=== PATIENT | male | born 1990 | race Caucasian/White ===

== ENCOUNTER 2018-02-03 10:00 | Outpatient (RCR) | payer MEDICARE, MEDICAID, SELFPAY ==
--- NOTE | 2018-02-03 13:14 | COCO.CNN ---
Primary Reason for Visit Financial Referral to Care Coordination Referral to Care Coordination: No Referral to Services: Yes Where and Who: [facility] - Referral From Referral From: Self Care Plan - Plan of Care Assessment/Background: I saw client today to complete paperwork for [facility] assistance with deposit and utility costs. Client is moving into affordable housing after a 2.5 year wait. Co-worker Gilda to deliver to [facility] at housing meeting today.
--- NOTE | 2018-02-03 13:21 | PDOC.CNN_ITS ---
Primary Reason for Visit Financial Referral to Care Coordination Referral to Care Coordination: No Referral to Services: Yes Where and Who: [facility] - Referral From Referral From: Self Care Plan - Plan of Care Assessment/Background: I saw client today to complete paperwork for [facility] assistance with deposit and utility costs. Client is moving into affordable housing after a 2.5 year wait. Co-worker Gilda to deliver to [facility] at housing meeting today.
== END 2018-03-05 10:00 ==
LOC: COCO 10:00
PROVIDERS: PCP Family Medicine; Visit Provider Family Medicine
DX: R69 Illness, unspecified (principal)

== ENCOUNTER 2018-03-06 20:28 | Inpatient (IN) | payer MEDICARE, MEDICAID, SELFPAY ==
[2018-03-06] VITALS (18 sets, daily range): BP systolic 85–136; BP diastolic 36–95; PULSE 78–122; RESP 15–36; TEMP 37.1–38; O2SAT 97–100
[2018-03-06 20:52] LABS: Bilirubin Negative (Negative); Blood Negative (Negative); Clarity Clear; Glucose Negative (Negative); Ketones Negative (Negative); Leukocyte Esterase Moderate (Negative); Nitrite Negative (Negative); Specific Gravity <= 1.005 (1.005-1.025); Urobilinogen 0.2 EU/dL (Up TO 0.2)
[2018-03-06] MEDS: HYDROcodone 5/Acetaminophen 325 TAB PO (21:11)
[2018-03-06] MEDS: Acetaminophen 325 MG TAB PO (21:11)
[2018-03-06 21:14] LABS: Bacteria Few HPF (Negative); C & S Indicated? Yes; Casts Negative LPF (Negative); Crystals Negative HPF (Negative); Epithelial Cells Negative HPF (Negative); Mucus Negative (Negative); Other Cells Negative (Negative); RBC Negative (0-2); WBC 20-50 HPF (0-5)
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
[2018-03-06 21:27] LABS: Abs Immature Grans 0.02 k/cumm (0.0-0.09); Absolute Eosinophil Count 0.03 k/cumm (0.0-0.7); Absolute Lymphocyte Count 1.14 k/cumm (1.2-3.4); Absolute Monocyte Count 0.98 k/cumm (0.11-0.7); Basophils % 0.2; Eosinophils % 0.2; Immature Grans % 0.2; Lactate-non-spesis 1.8 mmol/L (0.6-1.4); Mean Corp. HGB Concentration 26.3 g/dL (32.0-36.0); Mean Corpuscular Hemoglobin 15.8 pg (27.0-33.0); Mean Corpuscular Volume 60.1 fL (80-95); Monocytes % 7.7; Neutrophils % 82.7; RBC 3.48 m/cumm (4.50-6.00); RBC Distribution Width 19.2 % (11.8-14.1); White Blood Cell Count 12.69 k/cumm (4.4-10.8)
[2018-03-06] MEDS: Lactated Ringers 1,000 ML 1000 ML IV (21:35)
[2018-03-06] MEDS: Ketorolac 30 MG/ML VIAL IVP (21:46)
[2018-03-06 21:47] LABS: Absolute Basophil Count 0.03 k/cumm (0.0-0.2); Absolute Neutrophil Count 10.49 k/cumm (1.2-6.7)
[2018-03-06 21:48] LABS: HCT 20.9 % (40.0-50.0); HGB 5.5 g/dL (13.5-17.5)
[2018-03-06 22:02] LABS: ALT 15 U/L (12-78); AST 14 U/L (15-37); Albumin 3.8 g/dL (3.4-5.0); Alkaline Phosphatase 62 U/L (46-116); Anion Gap 12.4 mmol/L (3-11); Anisocytosis 3+; BUN 15 mg/dL (7-18); Bilirubin, Total 0.8 mg/dL (0.2-1.0); CO2 21.6 mmol/L (21.0-32.0); CREATININE 0.83 mg/dL (0.70-1.30); Calcium 8.6 mg/dL (8.5-10.1); Chloride 98 mmol/L (98-107); Diff Comment RBC Morph Reviewed; Glucose 94 mg/dL (70-100); Platelet Count 253 x1000/uL (130-400); Potassium 3.5 mmol/L (3.5-5.1); Sodium 132 mmol/L (136-145); Total Protein 7.4 g/dL (6.4-8.2)
[2018-03-06 22:03] LABS: Hypochromasia 3+; Microcytosis 3+; Stomatocytes 2+
[2018-03-06 22:50] LABS: Ferritin 2 ng/mL (8-388)
[2018-03-06 22:57] LABS: Iron 14 ug/dL (50-175); Total Iron Binding Capacity 515 ug/dL (250-450)
[2018-03-07] VITALS (20 sets, daily range): BP systolic 85–122; BP diastolic 50–76; PULSE 62–84; RESP 14–18; TEMP 36.3–37.8; O2SAT 96–100
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
[2018-03-07] MEDS: Normal Saline Flush 10 ML SYR IVP (02:20)
[2018-03-07] MEDS: Normal Saline 500 ML 10 ML IV ×2 (02:20→02:50)
[2018-03-07] MEDS: Acetaminophen 325 MG TAB PO ×3 (02:23→18:00)
[2018-03-07] MEDS: HYDROcodone 5/Acetaminophen 325 TAB PO ×3 (02:24→18:01)
[2018-03-07] MEDS: Ibuprofen 600 MG TAB PO ×2 (04:23→19:13)
[2018-03-07] MEDS: Normal Saline 1,000 ML 125 ML IV ×2 (05:30→16:03)
[2018-03-07 07:27] LABS: ALT 13 U/L (12-78); AST 11 U/L (15-37); Albumin 3.3 g/dL (3.4-5.0); Alkaline Phosphatase 55 U/L (46-116); Anion Gap 9.4 mmol/L (3-11); BUN 9 mg/dL (7-18); Bilirubin, Total 0.9 mg/dL (0.2-1.0); CO2 23.6 mmol/L (21.0-32.0); CREATININE 0.65 mg/dL (0.70-1.30); Calcium 8.3 mg/dL (8.5-10.1); Chloride 106 mmol/L (98-107); Glucose 85 mg/dL (70-100); Potassium 3.6 mmol/L (3.5-5.1); Sodium 139 mmol/L (136-145); Total Protein 6.5 g/dL (6.4-8.2)
[2018-03-07 07:34] LABS: HCT 23.9 % (40.0-50.0); Mean Corpuscular Hemoglobin 18.3 pg (27.0-33.0); Mean Corpuscular Volume 65.3 fL (80-95); Platelet Count 177 x1000/uL (130-400); RBC 3.66 m/cumm (4.50-6.00); RBC Distribution Width 24.4 % (11.8-14.1); White Blood Cell Count 8.55 k/cumm (4.4-10.8)
[2018-03-07 07:39] LABS: HGB 6.7 g/dL (13.5-17.5)
[2018-03-07] MEDS: Esomeprazole 40 MG CAPCR PO ×2 (07:49→19:13)
[2018-03-07] MEDS: Ferrous Sulfate 325 MG TAB PO ×2 (07:49→19:13)
--- NOTE | 2018-03-07 10:08 | PHARADMIT ---
Addendum entered by Julita Gamble 03/08/18 11:46: Pharmacy Note Subjective pt had 3 units transfused, surgical consult due to possible bleed Objective BP-143/85 weight-89.7(up) Cl-108 h/h-7.9/27.8 Assessment blood cultures no growth at 24 hours, urine culture grew gram+ amee(possible contaminated collection) Plan continue to watch labs, cultures and for med changes Original Note: Admission Pharmacy Clinical Review bladder infection and migraine Code Status Full Code Current Weight 77.111 kg Renally Cleared and Narrow Therapeutic Index Meds crcl ~92ml/min QTc Value / Action Taken na BP Control, Fever 110/64 afebrile Electrolytes reviewed ok DVT Prophylaxis no, anemic Opiate Usage / Scheduled Bowel Regimen Ordered prn/prn(last BM 03/06) Plt/SCr for Heparin / Enoxaparin 177/0.65 INR for Warfarin na H/H stable, WBC/Bands 6.7/23.9 after 2 units Antibiotic appropriateness ceftriaxone for presumed UTI Cultures and Sensitivities BC and UC pending Surgical ABX d/c within 24 hr na DM control / Insulin Dosing na Heart Failure (Check EF%) (REBA's, B-Block, Diuretics) na IV to PO Switch Home Meds Reviewed Home Meds Not Ordered polysaccharide iron complex [Nu-Iron] 150 mg PO BID #60 mg 08/05/16 vardenafil [Levitra] 10 - 20 mg PO DAILY PRN #6 tab-cap 04/01/17 benzonatate [Tessalon Perles] 100 - 200 mg PO TID PRN #50 tab-cap Comments
--- NOTE | 2018-03-07 13:13 | PDOC.CMIN ---
- If Service Date Differs Date of service: 03/07/18 Care Management Initial Assess REASON FOR HOSPITALIZATION:: Bladder infection and Migraine PAST MEDICAL HISTORY/PAST SURGICAL HISTORY:: Medical: Paralysis-Quadraplegia (Spinal cord lesion between C5-C7), Iron deficiency anemia, GERD. Surgical: Appendectomy PREVIOUS FUNCTIONAL STATUS/SOCIAL/FAMILY SUPPORTS:: Living independently in his [facility] [address]. Has his own vehicle andis independet for all activities. Wheelchair dependent but has upper body movement. Many friends and family members inthe area. Works at [email or web address]. CURRENT FUNCTIONAL STATUS:: Lying in bed watching TV. States he had a 3rd transfusion this morning and is feeling much better. ADVANCE DIRECTIVES:: None on file Has patient been provided with information about the portal?: Yes Did the patient sign up for the portal?: No CODE STATUS:: Full Code INSURANCE COVERAGE / FINANCIAL ISSUES:: [place] Medicaid. Medicare CURRENT HOME/COMMUNITY SERVICES/EQUIPMENT:: Owns a wheelchair. Has been working with [employer]. PRIMARY CARE PHYSICIAN:: [facility] medical: Donte Padgett MD POTENTIAL DISCHARGE NEEDS:: None identified PATIENT/FAMILY EDUCATION NEEDS:: Discharge instructions ANTICIPATED BARRIERS TO DISCHARGE:: None identified TRANSPORTATION:: Father will transport by car. PLAN:: Return home and resume previous activities. No services needed. Father will transport when medically cleared for discharge. Readmission - Within the Past 30 Days Yes or No: N
[2018-03-07] MEDS: Milk of Magnesia 30 ML CUP PO (13:19)
--- NOTE | 2018-03-07 14:15 | PGE_ITS ---
Assessment and Plan (1) Anemia: Current visit: Yes Status: Acute Problem details: Patient will be transfused 2 units packed red blood cells and consider further GI workup which could be an outpatient no obvious bleeding during his hospital stay. (2) Sepsis: Current visit: Yes Status: Acute Problem details: Hydration has already been accomplished and treatment of UTI is ongoing with IV Rocephin. (3) Acute UTI (urinary tract infection): Current visit: Yes Status: Acute Problem details: NOW switched to self-catheterization tomorrow is stable and continue IV Rocephin 1 g daily. Subjective Patient reports: no new complaints Interval history since last seen: Admitted overnight because of urinary tract infection and weakness. Found to have an extremely low hemoglobin and hematocrit. He is received 2 units of packed red cells but his hemoglobin only came up to 6.7. He is finished 2 more units of packed red cells and is due for a follow-up hemoglobin and hematocrit. Patient states he has had a full workup for abdominal pain which includes upper and lower endoscopy done at [facility] in 2012 and upper and lower endoscopy done at [facility] in 2012. All of these procedures were completely normal. He also had capsule endoscopy, ultrasound, CT scan in workup of his abdominal pain none of which showed any significant pathology. The patient digitally disimpacts himself on a regular basis because of problems with severe constipation. He says he eats lots of red meat, he does not feel his diet is problematic. He had some vomiting a few days ago but saw no blood. His bowel movements have not been melanotic though were heme positive on testing in the emergency room. Exam Narrative Exam Narrative: He is comfortable and in no apparent distress no formal exam today. Objective Objective Clinical Data: Abnormal lab results 03/06/18 03/06/18 03/06/18 Range/Units 20:42 21:20 21:20 WBC (4.4-10.8) k/cumm RBC (4.50-6.00) m/cumm Hgb (13.5-17.5) g/dL Hct (40.0-50.0) % MCV (80-95) fL MCH (27.0-33.0) pg MCHC (32.0-36.0) g/dL RDW (11.8-14.1) % Absolute Neutrophils (1.2-6.7) k/cumm Absolute Lymphocytes (1.2-3.4) k/cumm Absolute Monocytes (0.11-0.7) k/cumm Sodium 132 L (136-145) mmol/L Anion Gap 12.4 H (3-11) mmol/L Creatinine (0.70-1.30) mg/dL Lactate 1.8 H (0.6-1.4) mmol/L Calcium (8.5-10.1) mg/dL Iron (50-175) ug/dL TIBC (250-450) ug/dL Ferritin (8-388) ng/mL AST 14 L (15-37) U/L Albumin (3.4-5.0) g/dL Ur Leukocyte Esterase Moderate H (Negative) Crossmatch 03/06/18 03/06/18 03/06/18 Range/Units 21:20 21:20 21:20 WBC 12.69 H (4.4-10.8) k/cumm RBC 3.48 L (4.50-6.00) m/cumm Hgb 5.5 L* (13.5-17.5) g/dL Hct 20.9 L* (40.0-50.0) % MCV 60.1 L (80-95) fL MCH 15.8 L (27.0-33.0) pg MCHC 26.3 L (32.0-36.0) g/dL RDW 19.2 H (11.8-14.1) % Absolute Neutrophils 10.49 H (1.2-6.7) k/cumm Absolute Lymphocytes 1.14 L (1.2-3.4) k/cumm Absolute Monocytes 0.98 H (0.11-0.7) k/cumm Sodium (136-145) mmol/L Anion Gap (3-11) mmol/L Creatinine (0.70-1.30) mg/dL Lactate (0.6-1.4) mmol/L Calcium (8.5-10.1) mg/dL Iron (50-175) ug/dL TIBC (250-450) ug/dL Ferritin 2 L (8-388) ng/mL AST (15-37) U/L Albumin (3.4-5.0) g/dL Ur Leukocyte Esterase (Negative) Crossmatch See Detail 03/06/18 03/07/18 03/07/18 Range/Units 22:05 06:28 06:28 WBC (4.4-10.8) k/cumm RBC 3.66 L (4.50-6.00) m/cumm Hgb 6.7 L* (13.5-17.5) g/dL Hct 23.9 L (40.0-50.0) % MCV 65.3 L D (80-95) fL MCH 18.3 L (27.0-33.0) pg MCHC 28.0 L (32.0-36.0) g/dL RDW 24.4 H (11.8-14.1) % Absolute Neutrophils (1.2-6.7) k/cumm Absolute Lymphocytes (1.2-3.4) k/cumm Absolute Monocytes (0.11-0.7) k/cumm Sodium (136-145) mmol/L Anion Gap (3-11) mmol/L Creatinine 0.65 L (0.70-1.30) mg/dL Lactate (0.6-1.4) mmol/L Calcium 8.3 L (8.5-10.1) mg/dL Iron 14 L (50-175) ug/dL TIBC 515 H (250-450) ug/dL Ferritin (8-388) ng/mL AST 11 L (15-37) U/L Albumin 3.3 L (3.4-5.0) g/dL Ur Leukocyte Esterase (Negative) Crossmatch Vital Signs Temp 36.9 C 03/07/18 12:23 Pulse 67 03/07/18 12:23 Resp 18 03/07/18 12:23 BP 118/65 03/07/18 12:23 Pulse Ox 98 03/07/18 12:23 Intake & Output 03/06/18 03/07/18 03/07/18 23:59 11:59 23:59 Intake Total 1000 / 1000 2490.833 / 2490.833 350 / 350 Output Total 2950 / 2950 Balance 1000 / 1000 -459.167 / -459.167 350 / 350 Weight 77.111 kg 77.111 kg Intake: IV 1000 / 1000 580.833 / 580.833 0 / 0 Oral 1290 / 1290 Blood Product 620 / 620 275 / 275 Rbc Leuko Reduced Unit 275 / 275 [id number] Rbc Leuko Reduced Unit 300 / 300 [id number] Rbc Leuko Reduced Unit 320 / 320 [id number] Other 75 / 75 Rbc Leuko Reduced Unit 75 / 75 [id number] Output: Urine 2950 / 2950 Other: Urine Color Straw Urine Appearance Clear Voiding Methods Indwelling Catheter Laboratory Results WBC 8.55 k/cumm (4.4-10.8) D 03/07/18 06:28 RBC 3.66 m/cumm (4.50-6.00) L 03/07/18 06:28 Hgb 6.7 g/dL (13.5-17.5) L* 03/07/18 06:28 Hct 23.9 % (40.0-50.0) L 03/07/18 06:28 MCV 65.3 fL (80-95) L D 03/07/18 06:28 MCH 18.3 pg (27.0-33.0) L 03/07/18 06:28 MCHC 28.0 g/dL (32.0-36.0) L 03/07/18 06:28 RDW 24.4 % (11.8-14.1) H 03/07/18 06:28 Plt Count 177 x1000/uL (130-400) 03/07/18 06:28 MPV fL (8.0-11.0) 03/07/18 06:28 Immature Gran % 0.2 03/06/18 21:20 Neutrophils % 82.7 03/06/18 21:20 Lymphocytes % 9.0 03/06/18 21:20 Monocytes % 7.7 03/06/18 21:20 Eosinophils % 0.2 03/06/18 21:20 Basophils % 0.2 03/06/18 21:20 Absolute Neutrophils 10.49 k/cumm (1.2-6.7) H 03/06/18 21:20 Absolute Lymphocytes 1.14 k/cumm (1.2-3.4) L 03/06/18 21:20 Absolute Monocytes 0.98 k/cumm (0.11-0.7) H 03/06/18 21:20 Absolute Eosinophils 0.03 k/cumm (0.0-0.7) 03/06/18 21:20 Absolute Basophils 0.03 k/cumm (0.0-0.2) 03/06/18 21:20 Differential Comment Rbc morph reviewed 03/06/18 21:20 RBC Morphology See below 03/06/18 21:20 Hypochromasia 3+ 03/06/18 21:20 Anisocytosis 3+ 03/06/18 21:20 Microcytosis 3+ 03/06/18 21:20 Stomatocytes 2+ 03/06/18 21:20 Sodium 139 mmol/L (136-145) 03/07/18 06:28 Potassium 3.6 mmol/L (3.5-5.1) 03/07/18 06:28 Chloride 106 mmol/L (98-107) 03/07/18 06:28 Carbon Dioxide 23.6 mmol/L (21.0-32.0) 03/07/18 06:28 Anion Gap 9.4 mmol/L (3-11) 03/07/18 06:28 BUN 9 mg/dL (7-18) D 03/07/18 06:28 Creatinine 0.65 mg/dL (0.70-1.30) L 03/07/18 06:28 Estimated GFR/1.73 m2 >= 60.00 (mL/min/1.73m2) 03/07/18 06:28 Glucose 85 mg/dL (70-100) 03/07/18 06:28 Lactate 1.8 mmol/L (0.6-1.4) H 03/06/18 21:20 Calcium 8.3 mg/dL (8.5-10.1) L 03/07/18 06:28 Iron 14 ug/dL (50-175) L 03/06/18 22:05 TIBC 515 ug/dL (250-450) H 03/06/18 22:05 Ferritin 2 ng/mL (8-388) L 03/06/18 21:20 Total Bilirubin 0.9 mg/dL (0.2-1.0) 03/07/18 06:28 AST 11 U/L (15-37) L 03/07/18 06:28 ALT 13 U/L (12-78) 03/07/18 06:28 Alkaline Phosphatase 55 U/L (46-116) 03/07/18 06:28 Total Protein 6.5 g/dL (6.4-8.2) 03/07/18 06:28 Albumin 3.3 g/dL (3.4-5.0) L 03/07/18 06:28 Urine Color Yellow (Yellow) 03/06/18 20:42 Urine Clarity Clear 03/06/18 20:42 Urine pH 6.0 (5-8) 03/06/18 20:42 Ur Specific University <= 1.005 (1.005-1.025) 03/06/18 20:42 Urine Protein Negative mg/dL (Negative) 03/06/18 20:42 Urine Ketones Negative mg/dL (Negative) 03/06/18 20:42 Urine Blood Negative (Negative) 03/06/18 20:42 Urine Nitrite Negative (Negative) 03/06/18 20:42 Urine Bilirubin Negative (Negative) 03/06/18 20:42 Urine Urobilinogen 0.2 EU/dL (Up TO 0.2) 03/06/18 20:42 Ur Leukocyte Esterase Moderate (Negative) H 03/06/18 20:42 Urine RBC Negative (0-2) 03/06/18 20:42 Urine WBC 20-50 HPF (0-5) 03/06/18 20:42 Ur Epithelial Cells Negative HPF (Negative) 03/06/18 20:42 Urine Crystals Negative HPF (Negative) 03/06/18 20:42 Urine Bacteria Few HPF (Negative) 03/06/18 20:42 Urine Casts Negative LPF (Negative) 03/06/18 20:42 Urine Mucus Negative (Negative) 03/06/18 20:42 Urine Other Negative (Negative) 03/06/18 20:42 Ur Culture Indicated? Yes 03/06/18 20:42 Urine Glucose Negative mg/dL (Negative) 03/06/18 20:42 Patient ABO/Rh Cancelled 03/06/18 21:42 Antibody Screen Negative 03/06/18 21:20 Crossmatch See Detail 03/06/18 21:20 Date of service: 03/07/18 Time of Service: 14:10
--- NOTE | 2018-03-07 15:36 | INITIAL_ITS ---
- If Service Date Differs Date of service: 03/07/18 Care Management Initial Assess REASON FOR HOSPITALIZATION:: Bladder infection and Migraine PAST MEDICAL HISTORY/PAST SURGICAL HISTORY:: Medical: Paralysis-Quadraplegia ( Spinal cord lesion between C5-C7), Iron deficiency anemia, GERD. Surgical: Appendectomy PREVIOUS FUNCTIONAL STATUS/SOCIAL/FAMILY SUPPORTS:: Living independently in his [facility] [address]. Has his own vehicle andis independet for all activities. Wheelchair dependent but has upper body movement. Many friends and family members inthe area. Works at [employer]. CURRENT FUNCTIONAL STATUS:: Lying in bed watching TV. States he had a 3rd transfusion this morning and is feeling much better. ADVANCE DIRECTIVES:: None on file Has patient been provided with information about the portal?: Yes Did the patient sign up for the portal?: No CODE STATUS:: Full Code INSURANCE COVERAGE / FINANCIAL ISSUES:: [place] Medicaid. Medicare CURRENT HOME/COMMUNITY SERVICES/EQUIPMENT:: Owns a wheelchair. Has been working with [employer]. PRIMARY CARE PHYSICIAN:: [facility] medical: Donte Padgett MD POTENTIAL DISCHARGE NEEDS:: None identified PATIENT/FAMILY EDUCATION NEEDS:: Discharge instructions ANTICIPATED BARRIERS TO DISCHARGE:: None identified TRANSPORTATION:: Father will transport by car. PLAN:: Return home and resume previous activities. No services needed. Father will transport when medically cleared for discharge. Readmission - Within the Past 30 Days Yes or No: N
[2018-03-07 16:02] LABS: HCT 25.8 % (40.0-50.0); HGB 7.5 g/dL (13.5-17.5)
[2018-03-08 04:16] VITALS: BP 132/73; PULSE 50; RESP 15; TEMP 36.5; O2SAT 99
[2018-03-08] MEDS: Normal Saline 1,000 ML 125 ML IV ×2 (05:52→08:27)
[2018-03-08 07:13] LABS: HCT 27.8 % (40.0-50.0); HGB 7.9 g/dL (13.5-17.5); Mean Corp. HGB Concentration 28.4 g/dL (32.0-36.0); Mean Corpuscular Hemoglobin 19.2 pg (27.0-33.0); Mean Corpuscular Volume 67.6 fL (80-95); Mean Platelet Volume 10.6 fL (8.0-11.0); Platelet Count 195 x1000/uL (130-400); RBC 4.11 m/cumm (4.50-6.00); RBC Distribution Width 25.3 % (11.8-14.1)
[2018-03-08 07:22] VITALS: BP 143/85; PULSE 60; RESP 16; TEMP 36.3; O2SAT 98
[2018-03-08 07:23] LABS: ALT 16 U/L (12-78); AST 12 U/L (15-37); Alkaline Phosphatase 55 U/L (46-116); Anion Gap 6.8 mmol/L (3-11); BUN 9 mg/dL (7-18); Bilirubin, Total 0.4 mg/dL (0.2-1.0); CO2 26.2 mmol/L (21.0-32.0); CREATININE 0.62 mg/dL (0.70-1.30); Calcium 8.1 mg/dL (8.5-10.1); Chloride 108 mmol/L (98-107); Glucose 90 mg/dL (70-100); Sodium 141 mmol/L (136-145); Total Protein 6.3 g/dL (6.4-8.2)
[2018-03-08] MEDS: Ferrous Sulfate 325 MG TAB PO (08:25)
[2018-03-08] MEDS: Esomeprazole 40 MG CAPCR PO (08:25)
[2018-03-08] MEDS: HYDROcodone 5/Acetaminophen 325 TAB PO ×2 (09:08→14:41)
--- NOTE | 2018-03-08 11:03 | PDOC.CMPRO ---
Care Management Progress Note S/O: Aly was lying in bed when CM met with him. He was quite talkative, discussing his recent move to his new apartment in [facility] from his half-way home in [place] with his family. As well Aly spoke about his job at which he reported enjoying very much. 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 He reports feeling anxious to return home as he had planned to work towards getting settled in his new apartment this weekend. A: 27 year old male admitted to [facility] 03/06/18 for Bladder Infection and Migraine; found to have critically low blood level; three units of blood transfused since admission. P: Dr. Schaeffer reports Aly will be brought to the OR with Dr. Yoon for further work up of his symptomology and will also have two more units of packed blood cells. CM will continue to follow and support discharge considerations. Aly reports would like to return home today. Aly will return home when ready per MD; no additional services anticipated at this time. He will transport home via private vehicle with his father.
--- NOTE | 2018-03-08 11:46 | W.SURGCON ---
Date of service: 03/08/18 Time of Service: 11:46 History of Present Illness Chief Complaint: Anemia Narrative: 27 y/o male admitted for anemia. He has had intermittent issues with this over the last three years, requiring transfusion. He has had upper, lower and capsule endoscopy which have been unremarkable for a source of blood lossl. He is a C5 paraplegic with. He does perform self rectal disimpaction using a stimulator. He notes that he has bleeding after every use of the rectal stimulator. Mostly bright red blood, occasionally clots. Consults Consult date: 03/08/18 Requesting physician: Efraín Schaeffer Assessment and Plan (1) Anemia: Current visit: Yes Status: Acute Anemia with rectal bleeding, he has had no further blood loss, bleeding seems to be related to rectal disimpaciton recommended EUA of anus and rectum with possible hemorrhoid banding vs. hemorrhoidectomy, possible lateral sphincterotomy. I reviewed the procedure with Mr. De La Torre and discussed the risks of the procedure with him. All his questions were answered to his satisfaction. Consent has been obtained to proceed Problem details: Patient will be transfused 2 units packed red blood cells and consider further GI workup which could be an outpatient no obvious bleeding during his hospital stay. (2) Acute UTI (urinary tract infection): Current visit: Yes Status: Acute Problem details: NOW switched to self-catheterization tomorrow is stable and continue IV Rocephin 1 g daily. (3) Sepsis: Current visit: Yes Status: Acute Problem details: Hydration has already been accomplished and treatment of UTI is ongoing with IV Rocephin. Review of Systems Constitutional Denies fatigue, Denies headache(s), Denies malaise, Denies night sweats and Denies weight loss Eyes Patient Reports system reviewed and no additional complaints, except as docu ENT Reports system reviewed and no additional complaints, except as docu, Denies vertigo, Denies dizziness, Denies headache(s), Denies lip swelling, Denies throat swelling and Denies tongue swelling Cardiovascular Denies chest pain, Denies chest pain at rest, Denies edema, Denies irregular heart rhythm, Denies dyspnea and Denies dyspnea on exertion Respiratory Denies chest congestion, Denies cough, Denies dyspnea, Denies dyspnea on exertion and Denies wheezing Gastrointestinal Denies melena, Reports hematochezia, Denies coffee ground emesis, Reports constipation, Denies heartburn, Denies nausea and Denies hematemesis Genitourinary Reports system reviewed and no additional complaints, except as docu Musculoskeletal Reports system reviewed and no additional complaints, except as docu and Reports numbness (c5 paraplegic) Neurologic Denies behavioral changes, Denies vertigo, Denies dizziness, Denies headache(s) and Reports numbness (c5 paraplegic) Psychiatric Denies abnormal sleep pattern, Denies anxiety, Denies behavioral changes, Denies change in appetite, Denies depression, Denies irritability and Denies mood swings Endocrine Denies fatigue Hematologic/Lymphatic Denies easy bleeding, Denies easy bruising and Denies lymphadenopathy Allergic/Immunologic Denies lip swelling, Denies seasonal rhinorrhea, Denies throat swelling, Denies tongue swelling and Denies wheezing PFSH Family History Mother No problems noted. Father No problems noted. Sister No problems noted. Brother No problems noted. Grandfather Personal history of malignant neoplasm Grandfather No problems noted. Grandmother No problems noted. Grandmother No problems noted. 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 (Acute) GERD (gastroesophageal reflux disease) (Chronic) Social History Smoking/Tobacco Use Status: Current every day Surgical History Appendectomy (~09/1996) Exam Const General: cooperative, healthy appearing, comfortable, no acute distress, well developed and well groomed Nutritional Appearance: well nourished Orientation: alert and oriented x3 HENMT Head: normal to inspection Ears: hearing grossly normal bilaterally and external ears normal General nose exam: external nose normal and no nasal discharge Face and sinus: normal facial exam Mouth: oral mucosae normal Teeth and gingiva: dentition normal Eyes General: appearance normal, both eyes and all related structures Conjunctivae: conjunctivae normal Sclera: sclerae normal Pupils: PERRL Neck Neck: normal visual inspection, trachea midline and supple Chest Chest: normal inspection of the chest Resp Effort & Inspection: normal respiratory effort, able to speak in complete sentences, no cough and not labored Cardio Rate: regular rate Rhythm: regular rhythm GI Inspection: normal to inspection and non-distended Palpation: soft Auscultation: normal bowel sounds Rectal Exam: deferred Skin General skin exam: no rashes or lesions noted Neuro General: alert, awake and oriented x3 Cranial Nerves: CN's II-XI intact bilaterally Cognition: normal cognition Speech: speech normal Motor: tone not normal throughout (Lesion between C5-6 some retain function of arms and hands.) Extrem General: normal to inspection and normal capillary refill Psych Appearance: grossly normal Mental Status: mental status grossly normal Mood: congruent mood Affect: normal affect Attitude: cooperative Thought Process: normal Thought Content: normal Insight: insight good Judgment: judgment good Results Labs : 03/08/18 06:45 03/08/18 06:45 Abnormal lab results 03/06/18 03/07/18 03/08/18 Range/Units 21:20 15:55 06:45 RBC (4.50-6.00) m/cumm Hgb 7.5 L (13.5-17.5) g/dL Hct 25.8 L (40.0-50.0) % MCV (80-95) fL MCH (27.0-33.0) pg MCHC (32.0-36.0) g/dL RDW (11.8-14.1) % Chloride 108 H (98-107) mmol/L Creatinine 0.62 L (0.70-1.30) mg/dL Calcium 8.1 L (8.5-10.1) mg/dL AST 12 L (15-37) U/L Total Protein 6.3 L (6.4-8.2) g/dL Albumin 3.0 L (3.4-5.0) g/dL Crossmatch See Detail 03/08/18 Range/Units 06:45 RBC 4.11 L (4.50-6.00) m/cumm Hgb 7.9 L (13.5-17.5) g/dL Hct 27.8 L (40.0-50.0) % MCV 67.6 L (80-95) fL MCH 19.2 L (27.0-33.0) pg MCHC 28.4 L (32.0-36.0) g/dL RDW 25.3 H (11.8-14.1) % Chloride (98-107) mmol/L Creatinine (0.70-1.30) mg/dL Calcium (8.5-10.1) mg/dL AST (15-37) U/L Total Protein (6.4-8.2) g/dL Albumin (3.4-5.0) g/dL Crossmatch Diabetes panel 03/08/18 Range/Units 06:45 Sodium 141 (136-145) mmol/L Potassium 4.0 (3.5-5.1) mmol/L Chloride 108 H (98-107) mmol/L Carbon Dioxide 26.2 (21.0-32.0) mmol/L BUN 9 (7-18) mg/dL Creatinine 0.62 L (0.70-1.30) mg/dL Glucose 90 (70-100) mg/dL Calcium 8.1 L (8.5-10.1) mg/dL AST 12 L (15-37) U/L ALT 16 (12-78) U/L Alkaline Phosphatase 55 (46-116) U/L Total Protein 6.3 L (6.4-8.2) g/dL Albumin 3.0 L (3.4-5.0) g/dL Calcium panel 03/08/18 Range/Units 06:45 Calcium 8.1 L (8.5-10.1) mg/dL Albumin 3.0 L (3.4-5.0) g/dL Pituitary panel 03/08/18 Range/Units 06:45 Sodium 141 (136-145) mmol/L Potassium 4.0 (3.5-5.1) mmol/L Chloride 108 H (98-107) mmol/L Carbon Dioxide 26.2 (21.0-32.0) mmol/L BUN 9 (7-18) mg/dL Creatinine 0.62 L (0.70-1.30) mg/dL Glucose 90 (70-100) mg/dL Calcium 8.1 L (8.5-10.1) mg/dL Adrenal panel 03/08/18 Range/Units 06:45 Sodium 141 (136-145) mmol/L Potassium 4.0 (3.5-5.1) mmol/L Chloride 108 H (98-107) mmol/L Carbon Dioxide 26.2 (21.0-32.0) mmol/L BUN 9 (7-18) mg/dL Creatinine 0.62 L (0.70-1.30) mg/dL Glucose 90 (70-100) mg/dL Calcium 8.1 L (8.5-10.1) mg/dL Total Bilirubin 0.4 (0.2-1.0) mg/dL AST 12 L (15-37) U/L ALT 16 (12-78) U/L Alkaline Phosphatase 55 (46-116) U/L Total Protein 6.3 L (6.4-8.2) g/dL Albumin 3.0 L (3.4-5.0) g/dL Laboratory Tests 03/06/18 03/06/18 03/06/18 20:42 21:20 21:20 WBC RBC Hgb Hct MCV MCH MCHC RDW Plt Count MPV Immature Gran % Neutrophils % Lymphocytes % Monocytes % Eosinophils % Basophils % Absolute Neutrophils Absolute Lymphocytes Absolute Monocytes Absolute Eosinophils Absolute Basophils Differential Comment RBC Morphology Hypochromasia Anisocytosis Microcytosis Stomatocytes Sodium 132 L Potassium 3.5 Chloride 98 Carbon Dioxide 21.6 Anion Gap 12.4 H BUN 15 Creatinine 0.83 Estimated GFR/1.73 m2 >= 60.00 Glucose 94 Lactate 1.8 H Calcium 8.6 Iron TIBC Ferritin Total Bilirubin 0.8 AST 14 L ALT 15 Alkaline Phosphatase 62 Total Protein 7.4 Albumin 3.8 Urine Color Yellow Urine Clarity Clear Urine pH 6.0 Ur Specific Bradshaw <= 1.005 Urine Protein Negative Urine Ketones Negative Urine Blood Negative Urine Nitrite Negative Urine Bilirubin Negative Urine Urobilinogen 0.2 Ur Leukocyte Esterase Moderate H Urine RBC Negative Urine WBC 20-50 Ur Epithelial Cells Negative Urine Crystals Negative Urine Bacteria Few Urine Casts Negative Urine Mucus Negative Urine Other Negative Ur Culture Indicated? Yes Urine Glucose Negative Patient ABO/Rh Antibody Screen Crossmatch 03/06/18 03/06/18 03/06/18 21:20 21:20 21:20 WBC 12.69 H RBC 3.48 L Hgb 5.5 L* Hct 20.9 L* MCV 60.1 L MCH 15.8 L MCHC 26.3 L RDW 19.2 H Plt Count 253 MPV 11.0 Immature Gran % 0.2 Neutrophils % 82.7 Lymphocytes % 9.0 Monocytes % 7.7 Eosinophils % 0.2 Basophils % 0.2 Absolute Neutrophils 10.49 H Absolute Lymphocytes 1.14 L Absolute Monocytes 0.98 H Absolute Eosinophils 0.03 Absolute Basophils 0.03 Differential Comment Rbc morph reviewed RBC Morphology See below Hypochromasia 3+ Anisocytosis 3+ Microcytosis 3+ Stomatocytes 2+ Sodium Potassium Chloride Carbon Dioxide Anion Gap BUN Creatinine Estimated GFR/1.73 m2 Glucose Lactate Calcium Iron TIBC Ferritin 2 L Total Bilirubin AST ALT Alkaline Phosphatase Total Protein Albumin Urine Color Urine Clarity Urine pH Ur Specific Bradshaw Urine Protein Urine Ketones Urine Blood Urine Nitrite Urine Bilirubin Urine Urobilinogen Ur Leukocyte Esterase Urine RBC Urine WBC Ur Epithelial Cells Urine Crystals Urine Bacteria Urine Casts Urine Mucus Urine Other Ur Culture Indicated? Urine Glucose Patient ABO/Rh A Positive Antibody Screen Negative Crossmatch See Detail 03/06/18 03/06/18 03/07/18 21:42 22:05 06:28 WBC RBC Hgb Hct MCV MCH MCHC RDW Plt Count MPV Immature Gran % Neutrophils % Lymphocytes % Monocytes % Eosinophils % Basophils % Absolute Neutrophils Absolute Lymphocytes Absolute Monocytes Absolute Eosinophils Absolute Basophils Differential Comment RBC Morphology Hypochromasia Anisocytosis Microcytosis Stomatocytes Sodium 139 Potassium 3.6 Chloride 106 Carbon Dioxide 23.6 Anion Gap 9.4 BUN 9 D Creatinine 0.65 L Estimated GFR/1.73 m2 >= 60.00 Glucose 85 Lactate Calcium 8.3 L Iron 14 L TIBC 515 H Ferritin Total Bilirubin 0.9 AST 11 L ALT 13 Alkaline Phosphatase 55 Total Protein 6.5 Albumin 3.3 L Urine Color Urine Clarity Urine pH Ur Specific Bradshaw Urine Protein Urine Ketones Urine Blood Urine Nitrite Urine Bilirubin Urine Urobilinogen Ur Leukocyte Esterase Urine RBC Urine WBC Ur Epithelial Cells Urine Crystals Urine Bacteria Urine Casts Urine Mucus Urine Other Ur Culture Indicated? Urine Glucose Patient ABO/Rh Cancelled Antibody Screen Crossmatch 03/07/18 03/07/18 03/08/18 06:28 15:55 06:45 WBC 8.55 D RBC 3.66 L Hgb 6.7 L* 7.5 L Hct 23.9 L 25.8 L MCV 65.3 L D MCH 18.3 L MCHC 28.0 L RDW 24.4 H Plt Count 177 MPV Immature Gran % Neutrophils % Lymphocytes % Monocytes % Eosinophils % Basophils % Absolute Neutrophils Absolute Lymphocytes Absolute Monocytes Absolute Eosinophils Absolute Basophils Differential Comment RBC Morphology Hypochromasia Anisocytosis Microcytosis Stomatocytes Sodium 141 Potassium 4.0 Chloride 108 H Carbon Dioxide 26.2 Anion Gap 6.8 BUN 9 Creatinine 0.62 L Estimated GFR/1.73 m2 >= 60.00 Glucose 90 Lactate Calcium 8.1 L Iron TIBC Ferritin Total Bilirubin 0.4 AST 12 L ALT 16 Alkaline Phosphatase 55 Total Protein 6.3 L Albumin 3.0 L Urine Color Urine Clarity Urine pH Ur Specific Bradshaw Urine Protein Urine Ketones Urine Blood Urine Nitrite Urine Bilirubin Urine Urobilinogen Ur Leukocyte Esterase Urine RBC Urine WBC Ur Epithelial Cells Urine Crystals Urine Bacteria Urine Casts Urine Mucus Urine Other Ur Culture Indicated? Urine Glucose Patient ABO/Rh Antibody Screen Crossmatch 03/08/18 06:45 WBC 6.70 RBC 4.11 L Hgb 7.9 L Hct 27.8 L MCV 67.6 L MCH 19.2 L MCHC 28.4 L RDW 25.3 H Plt Count 195 MPV 10.6 Immature Gran % Neutrophils % Lymphocytes % Monocytes % Eosinophils % Basophils % Absolute Neutrophils Absolute Lymphocytes Absolute Monocytes Absolute Eosinophils Absolute Basophils Differential Comment RBC Morphology Hypochromasia Anisocytosis Microcytosis Stomatocytes Sodium Potassium Chloride Carbon Dioxide Anion Gap BUN Creatinine Estimated GFR/1.73 m2 Glucose Lactate Calcium Iron TIBC Ferritin Total Bilirubin AST ALT Alkaline Phosphatase Total Protein Albumin Urine Color Urine Clarity Urine pH Ur Specific Bradshaw Urine Protein Urine Ketones Urine Blood Urine Nitrite Urine Bilirubin Urine Urobilinogen Ur Leukocyte Esterase Urine RBC Urine WBC Ur Epithelial Cells Urine Crystals Urine Bacteria Urine Casts Urine Mucus Urine Other Ur Culture Indicated? Urine Glucose Patient ABO/Rh Antibody Screen Crossmatch
--- NOTE | 2018-03-08 11:57 | CMPROGNOTE_ITS ---
Care Management Progress Note S/O: Aly was lying in bed when CM met with him. He was quite talkative, discussing his recent move to his new apartment in [facility] from his chcf home in [place] with his family. As well Aly spoke about his job at which he reported enjoying very much. 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 He reports feeling anxious to return home as he had planned to work towards getting settled in his new apartment this weekend. A: 27 year old male admitted to [facility] 03/06/18 for Bladder Infection and Migraine; found to have critically low blood level; three units of blood transfused since admission. P: Dr. Schaeffer reports Aly will be brought to the OR with Dr. Yoon for further work up of his symptomology and will also have two more units of packed blood cells. CM will continue to follow and support discharge considerations. Aly reports would like to return home today. Aly will return home when ready per MD; no additional services anticipated at this time. He will transport home via private vehicle with his father.
[2018-03-08] MEDS: Lidocaine 1% Pres-Free 5 ML VIAL 20 ML (13:39)
--- NOTE | 2018-03-08 14:01 | NUR.NOTE ---
Nursing Note:03/08/18-Patient does not want colace etc. States takes MOM and uses a bowel stimulator that rehab gave him and showed him how to use. States that works well for him. Readdressed w DR Yoon present and Dr Yoon does not want colace or other meds to be given. Will be going for procedure soon o explore rectal area for damage, hemorhoids etc to scpe out reasons for rectal bleeding. FYI.
--- NOTE | 2018-03-08 14:02 | CHAPLAIN ---
Aly was in bed, friendly in greeting me and easily engaged in a conversation. He talked about moving into his new apartment before being admitted here. He is hoping to go home today to continue settling his apartment. His dad and sister also both moved out of the home they shared, so they have been helping each other move. 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 He likes likes his job. His dad recently became a dorm parent and will be living at . Aly seems comfortable here, but is hoping to be discharged very soon.
[2018-03-08] MEDS: Bupivacaine LIPOSOME/PF 133 MG/10 ML VIAL IJ (14:03)
--- NOTE | 2018-03-08 14:18 | W.PM.OP ---
Date of service: 03/08/18 Time of Service: 14:18 Operative Note Date of procedure: 03/08/18 Pre-op diagnosis: Anemia with rectal bleeding Post-op diagnosis: other (Bleeding hemorrhoids) Procedure: Examination under Anesthesia of the Anus and Rectume with hemorrhoid banding Surgeon: Wang Yoon Director Of Architecture: Isma Mclaughlin Anesthesia: local (1% lidocaine, 1.3% exparel) Estimated blood loss (mL): 50 Pathology: none sent Complications: None Patient was transported to: floor Patient's condition: stable Indications: 27-year-old male who is developed anemia from bleeding after rectal disimpaction manually. He is a C5 paraplegic does manual disimpaction's with a stimulator. He has noticed over the last 3 years that he has had more and more bleeding after manual disimpaction's. This has caused him to be anemic and required transfusions with most recent hemoglobin of 5 which responded to transfusion. It was recommended he undergo examination under anesthesia to evaluate for hemorrhoids versus fissure versus other occult pathology that could be causing bleeding. Previous upper and lower endoscopy along with capsule endoscopy have been negative. The risks and benefits of procedure were discussed with him all his questions were answered to his satisfaction and consent was obtained to proceed. Findings: On examination of the anus and distal rectum, it is noted that he has engorged hemorrhoids in the left lateral column which readily bleed with stretching her contact these were subsequently banded, and chromic stitches were placed into several fissures in the mucosa that were bleeding also. Procedure Description: The patient was brought to the pre-procedure staging area is identification was confirmed consent signed. He was then brought to the operating room positioned supine. An appropriate timeout was taken reviewing the patient's identification allergies medications procedure. The gluteal cleft was then using a standard tape that taping fashion, the perineum was prepped with Betadine, and block draped in standard sterile fashion. I began by gently dilating the anal sphincter with digital dilation. I then infiltrated 1% lidocaine circumferentially around the anal verge. The large bullet anoscope was then advanced into the anal and distal rectum. Circumferential inspection of the anus and rectum demonstrated nolberto engorged left lateral hemorrhoid problem that was bleeding with minimal contact. I then proceeded to band this, with multiple banding's. This did create several fissures in the mucosa that were bleeding these were oversewn with 2-0 chromic suture to good effect. I saw no further active bleeding. It had been approximately 20 minutes since infiltrating the lidocaine. Then infiltrated 1.3% asked for Exparel circumferentially around the anus. A veronica-pad was placed the patient was returned to his room in good condition. There were no complications during the case.
[2018-03-08 14:38] VITALS: BP 141/92; PULSE 54; RESP 14; O2SAT 99
[2018-03-08 14:53] VITALS: BP 128/81; PULSE 55; RESP 15; TEMP 36.1; O2SAT 99
[2018-03-08 15:12] VITALS: BP 122/78; PULSE 50; RESP 15; TEMP 35.9; O2SAT 100
--- NOTE | 2018-03-08 15:28 | NUR.NOTE ---
Nursing Note:03/08/18 @ 1435-Returned from Procedure room-hover mat used for transfer. Well tolerated by patient. A&Ox3. LS clear. Diaphoretic. States pain in rectal area is 9/10. Denies nausea. ABD soft non tender. Dionne pad & mesh panty in place. No bleeding noted. Will reposition better when pain is more controlled. Todd to gravity drainage. Tremors noted per patients norm in extremities. IID- LFA site WNL's. Sips of water given. Declines other PO at this time. Upper bed rails up. Bedd in low position. See VS intervention. Call tsang within reach.
[2018-03-08 15:30] VITALS: BP 127/82; PULSE 52; RESP 15; TEMP 35.8; O2SAT 100
--- NOTE | 2018-03-08 16:47 | DSE_ITS ---
DS: Diagnosis Discharge Diagnosis (1) Anemia: Start date: 03/06/18 Status: Acute Asessment and Plan: Presented with weakness and malaise. Found to have a hemoglobin of 5.5. Transfused 3 units packed red cells. Discharge hemoglobin 7.9. Discharge with iron supplementation. Cause of bleeding appears to be internal hemorrhoids. (2) Acute UTI (urinary tract infection): Start date: 03/06/18 Status: Acute Asessment and Plan: Thought to have an acute UTI on admission. Urine culture shows mixed gram-positive growth. Still high risk for UTI given intermittent catheterization. Received ceftriaxone during his admission but no antibiotics at the time of discharge. (3) Sepsis: Status: Acute Asessment and Plan: Initial presentation worrisome for sepsis but lactate level low at 1.8, vital signs were stable. Did not require aggressive sustentation. (4) Internal bleeding hemorrhoids: Start date: 03/06/18 Status: Acute Asessment and Plan: Anoscopy on 03/08/2018, Dr. Cobos, revealed multiple internal hemorrhoids that were bleeding. Hemorrhoidal banding/ligation. Follow -up Dr. Cobos in 2-3 weeks. (5) Quadriplegia following spinal cord injury: Status: Chronic Asessment and Plan: Functions very independently. Lives in his own apartment. Dries with a special car. He is discharged to home. His father said he will stay with him tonight and monitor his progress. Discharge Plan Discharge Details Reason For Visit: Rectal Bleeding/ Anemia Admit Date/Time: 03/06/18 22:05 Admit Provider: Efraín Schaeffer Attending Provider: Efraín Schaeffer Primary Care Provider: Donte Padgett Disposition Patient Disposition: HOME Condition: Good Discharge Instructions Activity:: Activity as Tolerated Equipment/Supplies:: No Equipment Needed Diet:: As Tolerated Discharge Orders Discharge Orders: Discharge Order (Routine); Ordered 03/08/18 Ordered By: Efraín Schaeffer DS: Summary Status at Discharge Functional status at discharge: wheelchair bound Overall status at discharge: patient is back to baseline Time Spent with Patient Greater than 30 minutes Exam Narrative Exam Narrative: Patient sitting up in bed in no apparent distress. He is just come back from the OR where he had had anoscopy. There is no obvious signs of bleeding. He has no obvious abdominal discomfort. DS: Data Completed studies during hospitalization [Text1]: Procedures ADENOIDECTOMY (09/05/96) PRESSURE DRESSING APPLIC (09/07/96) Labs on day of discharge: Labs from last 24 hours 03/08/18 03/08/18 06:45 06:45 WBC 6.70 RBC 4.11 L Hgb 7.9 L Hct 27.8 L MCV 67.6 L MCH 19.2 L MCHC 28.4 L RDW 25.3 H Plt Count 195 MPV 10.6 Sodium 141 Potassium 4.0 Chloride 108 H Carbon Dioxide 26.2 Anion Gap 6.8 BUN 9 Creatinine 0.62 L Estimated GFR/1.73 m2 >= 60.00 Glucose 90 Calcium 8.1 L Total Bilirubin 0.4 AST 12 L ALT 16 Alkaline Phosphatase 55 Total Protein 6.3 L Albumin 3.0 L Preliminary micro results at discharge 03/06/18 21:54 Blood Culture - Preliminary Blood NO GROWTH 24 HOURS 03/06/18 22:05 Blood Culture - Preliminary Blood NO GROWTH 24 HOURS Date of service: 03/08/18 Time of Service: 16:40
== END 2018-03-08 17:05 | disposition home or self-care (01) | DRG 987 ==
LOC: ER 22:44 → MS 23:09
PROVIDERS: Emergency Medicine; Surgery; Admitting Provider Family Medicine; Emergency Provider Nurse Practitioner Family; PCP Family Medicine; Visit Provider Family Medicine
PROC: 06LY3CC Occlusion of Hemorrhoidal Plexus with Extraluminal Device, Percutaneous Approach (ICD-10-PCS; CPT 46221; principal; 2018-03-08 12:00)
PROC: 06LY3CC Occlusion of Hemorrhoidal Plexus with Extraluminal Device, Percutaneous Approach (ICD-10-PCS; CPT 46221; 2018-03-08 12:00)
DX: D50.0 Iron deficiency anemia secondary to blood loss (chronic) (principal); A41.9 Sepsis, unspecified organism; G82.50 Quadriplegia, unspecified; N39.0 Urinary tract infection, site not specified; K62.5 Hemorrhage of anus and rectum; W16.42XS Fall into unspecified water causing other injury, sequela; Z99.3 Dependence on wheelchair; D50.9 Iron deficiency anemia, unspecified; K59.09 Other constipation; K21.9 Gastro-esophageal reflux disease without esophagitis
CPT/HCPCS: 46221; 36410; 36415; 36430; 51703; 80053; 85027; 86850; 86900; 86901; 86920; 87040; 96361; 96365; 96372; 96375; 99222; 99223; 99232; 99239; 99252; 99285; 81003; 81015; 82728; 83540; 83550; 83605; 85014; 85018; 85025; 87086; 99231; 99284; J0696; J1885; P9016

== ENCOUNTER 2018-08-17 15:45 | Outpatient (CLI) | payer MEDICARE, MEDICAID, SELFPAY ==
[2018-08-17 16:10] LABS: HCT 34.2 % (40.0-50.0); HGB 9.9 g/dL (13.5-17.5); Mean Corp. HGB Concentration 28.9 g/dL (32.0-36.0); Mean Corpuscular Volume 65.6 fL (80-95); Platelet Count 242 x1000/uL (130-400); RBC 5.21 m/cumm (4.50-6.00); RBC Distribution Width 16.9 % (11.8-14.1); White Blood Cell Count 6.59 k/cumm (4.4-10.8)
== END 2018-08-17 16:05 ==
PROVIDERS: PCP Family Medicine; Visit Provider Family Medicine
DX: D64.9 Anemia, unspecified (principal); R53.83 Other fatigue
CPT/HCPCS: 36415; 85027

== ENCOUNTER 2018-08-18 10:47 | Outpatient (CLI) | payer MEDICARE, MEDICAID, SELFPAY ==
[2018-08-18 16:26] LABS: Iron 16 ug/dL (50-175)
[2018-08-18 16:39] LABS: Ferritin 4 ng/mL (8-388)
== END 2018-08-18 11:07 ==
PROVIDERS: PCP Family Medicine; Visit Provider Family Medicine
DX: D50.9 Iron deficiency anemia, unspecified (principal)
CPT/HCPCS: 36415; 82728; 83540

== ENCOUNTER 2018-09-07 13:03 | Outpatient (CLI) | payer MEDICARE, MEDICAID, SELFPAY ==
[2018-09-13 00:41] LABS: 6-monoacetylmorphine Not Detected ng/mL (Cutoff: 25); Amphetamines Negative ng/mL (Cutoff: 500); Barbiturates Negative ng/mL (Cutoff: 200); Benzodiazepines Negative ng/mL (Cutoff: 100); Buprenorphine Not Detected ng/mL (Cutoff: 5); Cocaine Negative ng/mL (Cutoff: 150); Codeine Not Detected ng/mL (Cutoff: 25); Comment Normal; Creatinine, U 270.5 mg/dL; Dihydrocodeine Not Detected ng/mL (Cutoff: 25); EDDP Present ng/mL (Cutoff: 25); Fentanyl Not Detected ng/mL (Cutoff: 2); Hydrocodone Not Detected ng/mL (Cutoff: 25); Hydromorphone Not Detected ng/mL (Cutoff: 25); Hydromorphone-3-beta-glucuroni Not Detected ng/mL (Cutoff: 100); Meperidine Not Detected ng/mL (Cutoff: 25); Methadone Not Detected ng/mL (Cutoff: 25); Morphine Not Detected ng/mL (Cutoff: 25); N-desmethyltapentadol Not Detected ng/mL (Cutoff: 50); Naloxone Not Detected ng/mL (Cutoff: 25); Norbuprenorphine Not Detected ng/mL (Cutoff: 5); Norfentanyl Not Detected ng/mL (Cutoff: 2); Norhydrocodone Not Detected ng/mL (Cutoff: 25); Normeperidine Not Detected ng/mL (Cutoff: 25); Noroxycodone Not Detected ng/mL (Cutoff: 25); Noroxymorphone Not Detected ng/mL (Cutoff: 25); O-desmethyltramadol Not Detected ng/mL (Cutoff: 25); Phencyclidine Negative ng/mL (Cutoff: 25); Propoxyphene Not Detected ng/mL (Cutoff: 25); Specific Gravity 1.007; Tapentadol Not Detected ng/mL (Cutoff: 25); Tetrahydrocannabinol Presumptive Positive ng/mL (Cutoff: 50); Tramadol Not Detected ng/mL (Cutoff: 25); pH 7.9
[2018-09-14 04:15] LABS: Carboxy-THC Interpretation Positive.; Delta-9 CarboxyThc by LC-MS/MS 243 ng/mL (Cutoff:<3)
== END 2018-09-07 13:23 ==
PROVIDERS: Psychiatry & Neurology Neurology; PCP Family Medicine; Visit Provider Family Medicine
DX: Z79.891 Long term (current) use of opiate analgesic (principal); G82.50 Quadriplegia, unspecified
CPT/HCPCS: 80307; 80349; 80364

== ENCOUNTER 2018-09-30 00:45 | Outpatient (RCR) | payer MEDICARE, MEDICAID, SELFPAY ==
[2018-09-30] MEDS: IRON SUCROSE COMPLEX 200 MG in Normal Saline 100 ML 110 MG IVPB (13:43)
[2018-09-30] MEDS: Normal Saline Flush 10 ML SYR IVP (13:44)
== END 2018-10-03 23:59 | disposition home or self-care (01) ==
LOC: INF 00:45
PROVIDERS: PCP Family Medicine; Visit Provider Family Medicine
DX: D50.9 Iron deficiency anemia, unspecified (principal)
CPT/HCPCS: 96365; J1756

== ENCOUNTER → 2018-10-01 13:35 | Outpatient (BNVA) | payer MEDICARE, MEDICAID, SELFPAY | PROVIDERS: PCP Family Medicine; Referring Provider Family Medicine; Visit Provider Surgery | DX: K64.8 Other hemorrhoids (principal) | CPT/HCPCS: 99213 ==

== ENCOUNTER 2018-11-01 01:42 | Outpatient (RCR) | payer MEDICARE, MEDICAID, SELFPAY ==
[2018-10-07] MEDS: Normal Saline Flush 10 ML SYR IVP (13:51)
[2018-10-07] MEDS: IRON SUCROSE COMPLEX 200 MG in Normal Saline 100 ML 110 MG IVPB (13:52)
[2018-10-15] MEDS: IRON SUCROSE COMPLEX 200 MG in Normal Saline 100 ML 110 MG IVPB (13:39)
[2018-10-15] MEDS: Normal Saline Flush 10 ML SYR IVP (13:40)
[2018-10-22] MEDS: IRON SUCROSE COMPLEX 200 MG in Normal Saline 100 ML 110 MG IVPB (14:01)
[2018-10-22] MEDS: Normal Saline Flush 10 ML SYR IVP (14:01)
== END 2018-11-02 23:59 | disposition home or self-care (01) ==
LOC: INF 01:42
PROVIDERS: PCP Family Medicine; Visit Provider Family Medicine
DX: D50.9 Iron deficiency anemia, unspecified (principal)
CPT/HCPCS: 96365; J1756

== ENCOUNTER 2018-11-04 01:03 | Outpatient (RCR) | payer MEDICARE, MEDICAID, SELFPAY ==
[2018-11-04] MEDS: IRON SUCROSE COMPLEX 200 MG in Normal Saline 100 ML 110 MG IVPB (14:30)
[2018-11-04] MEDS: Normal Saline Flush 10 ML SYR IVP (15:05)
== END 2018-12-03 23:59 | disposition home or self-care (01) ==
LOC: INF 01:03
PROVIDERS: PCP Family Medicine; Visit Provider Family Medicine
DX: D50.0 Iron deficiency anemia secondary to blood loss (chronic) (principal)
CPT/HCPCS: 96365; J1756

== ENCOUNTER → 2018-12-03 13:50 | Outpatient (BNVA) | payer MEDICARE, MEDICAID, SELFPAY | PROVIDERS: PCP Family Medicine; Referring Provider Family Medicine; Visit Provider Surgery | DX: K64.9 Unspecified hemorrhoids (principal) | CPT/HCPCS: 99213 ==

== ENCOUNTER 2019-02-16 09:16 | Day surgery (SDC) | payer MEDICARE, MEDICAID, SELFPAY ==
[2019-02-16] VITALS (9 sets, daily range): BP systolic 95–128; BP diastolic 59–78; PULSE 56–78; RESP 12–16; TEMP 36.3–36.5; O2SAT 97–99
--- NOTE | 2019-02-16 07:20 | HPE_ITS ---
Date of service: 02/16/19 Assessment and Plan (1) Internal bleeding hemorrhoids: Current visit: No Status: Acute A\\ Bleeding internal hemorrhoids P\\ Exam under anesthesia and hemorrhoidectomy Risks, complications and alternatives were reviewed with will. Questions were entertained and answered to his satisfaction and he wished to proceed. No guarantees were given or implied. History of Present Illness Narrative: Aly as back to see me regarding his rectal bleeding. He continues to bleed a lot. He has to massage his rectal muscle in order to have a BM. He has to do this daily or he can't go to the bathroom. He takes milk of magnesia daily and his stools are soft. He has feeling in his rectum and deep sensation to his legs. I reviewed his chart and he has had extensive workup with colonoscopy, EGD and capsule endoscopy in the recent past and all were normal. After his last hemorrhoid banding he stopped bleeding for about 3 months. I discussed with Aly that unless we can find something that will relax his muscle so he doesn't have to stimmulate the muscle he will continue to have hemorrhoids. So hemorrhoidectomy will again be temporary. I did discuss his case with colorectal surgery at [facility] [place] and they didnt have any other suggestions except hemorrhoid banding. I did briefly discuss colostomy as this would bypass the rectal muscle. Aly is not ready to entertain this option. I offered second opinion with colorectal at [facility]. 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 Father No problems noted. Sister No problems noted. Brother No problems noted. Grandfather Personal history of malignant neoplasm Grandfather No problems noted. Grandmother No problems noted. Grandmother No problems noted. Social History Smoking/Tobacco Use Status: Current every day Tobacco Type: cigarettes Smoking packs per day: 1 Alcohol Intake: current Alcohol Intake frequency: holidays/special occasions only Drug use: Daily Substance use type: marijuana Details: Pt smokes marijuana HS. Marijuana: t-1 , bowl. Alcohol:t-10 Do you feel safe at home: Yes Do you feel safe in your relationship?: Yes Additional Social history: Weighed pt with carol pt. used wheelchair Meds Home Medications Medication Instructions Recorded Confirmed Type Bard Coude Tip Catheter #240 ea 03/25/16 02/16/19 History vardenafil 20 mg tablet 10 - 20 mg PO DAILY PRN #6 tab-cap 06/09/18 02/16/19 Rx hydrocodone 5 mg-acetaminophen 325 2 tab PO TID tab 09/21/18 02/16/19 History mg tablet naproxen sodium [Aleve] 220 mg PO BID PRN 02/16/19 02/16/19 History Allergies Allergy/AdvReac Type Severity Reaction Status Date / Time No Known Allergies Allergy Unverified 02/16/19 09:29 Exam Resp Effort & Inspection: normal respiratory effort Auscultation: clear to auscultation bilaterally Cardio Rate: regular rate Rhythm: regular rhythm
--- NOTE | 2019-02-16 10:18 | W.PM.DSUDISC ---
Discharge Plan Disposition Patient Disposition: HOME Condition: Good Discharge Details Reason For Visit: Internal hemorrhoids Attending Provider: Yarely Pradhan Primary Care Provider: Donte Padgett Home Meds and New Rx's Prescriptions: New oxycodone 5 mg tablet 5 mg PO Q6H PRN (Reason: pain) Qty: 14 RF: 0 Continued hydrocodone-acetaminophen 5-325 mg tablet 2 tab PO TID RF: 0 (DME) Bard Coude Tip Catheter 1 EACH misc 1 ea Miscellaneous q 2-3 h Qty: 240 RF: 11 vardenafil [Levitra] 20 mg tablet 10 - 20 mg PO DAILY PRN (Reason: sexual activity) Qty: 6 RF: 3 naproxen sodium [Aleve] 220 mg Capsule 220 mg PO BID PRNRF: 0 Discharge Instructions Instructions: Hemorrhoidectomy (ED) Additional Instructions: Activity at Home after surgery: 1. Make sure you walk outside at least 4 times per day 2. You should be able to climb a flight of stairs 3. No driving while in pain or taking pain medications 4. No strenuous activity or heavy lifting for 2 weeks Diet, Nutrition, & wound healin. Avoid alcohol until after you are recovered from your surgery 2. Make sure to eat plenty of lean protein (meat, fish, eggs, cottage cheese, beans) 3. Eat a variety of fruits and vegetables. Eat plenty of high fiber foods to avoid constipation. 4. Drink plenty of liquids to stay hydrated and avoid constipation Pain Medications: 1. Alternate Tylenol 650 mg and Ibuprofen 600 mg every 3 hours 2. If a narcotic has been prescribed take as directed only for breakthrough pain For Constipation: 1. Take Milk of Magnesia or MiraLax as needed for constipation Other: 1. You may shower daily. 2. Sitz baths if you are able every 4 hours as needed for discomfort 3. Try not to manipulate the rectum tomorrow. Wait until Thursday Please call our office if you develop: 1. Fevers >101.5 2. Nausea or Vomiting 3. Worsening pain 4. Redness and thick discharge from the wounds If after hours please call the Hospital at and ask to speak to the on-call surgeon Referrals: Yarely Pradhan MD [ [facility] STAFF PHYSICIAN] - 03/08/19 2:00 pm Activity:: Activity as Tolerated Diet:: high fiber diet Discharge Orders Discharge Orders: Discharge Order (Routine); Ordered 02/16/19 Ordered By: Yarely Pradhan DS: Diagnosis Discharge Diagnosis (1) Internal bleeding hemorrhoids: Status: Acute
[2019-02-16] MEDS: Acetaminophen 500 MG TAB 1000 MG PO (10:25)
[2019-02-16] MEDS: Lactated Ringers 1,000 ML 80 ML IV ×2 (10:25→11:50)
[2019-02-16] MEDS: metroNIDAZOLE 500 MG/100 ML BAG 100 MG IVPB (10:25)
[2019-02-16] MEDS: Celecoxib 200 MG CAP PO (10:25)
[2019-02-16] MEDS: Gabapentin 300 MG CAP PO (10:25)
--- NOTE | 2019-02-16 13:19 | W.PM.OP ---
Date of service: 02/16/19 Time of Service: 12:00 Operative Note DATE OF PROCEDURE: 02/16/19 PRE-OP DIAGNOSIS: Bleeding internal hemorrhoids POST-OP DIAGNOSIS: other (Bleeding internal and external hemorrhoids, scarring) PROCEDURE: Exam under anesthesia and internal and external hemorrhoidectomy SURGEON: Yarely Pradhan ANESTHESIA: MAC (ASA 2/ Juanpablo Malloy CRNA) and spinal ESTIMATED BLOOD LOSS: 15 PATHOLOGY: none sent COMPLICATIONS: None Patient was transported to: PACU Patient's condition: stable Indications: Aly is a pleasant 28-year-old gentleman who is a quadriplegic following spinal cord injury. He unfortunately has to disimpact himself on a daily basis and developed some pretty serious hemorrhoids which a lot of bleeding. He underwent exam under anesthesia and hemorrhoidectomy last year which help with this bleeding. He came back to see me because of increased bleeding and need for iron transfusions. He is here today for another exam under anesthesia and possible hemorrhoidectomy. Risks, benefits, complications were reviewed with him in same-day surgery and he wished to proceed. No guarantees were given or implied Findings: Internal hemorrhoids at the 4 to 8 o'clock position. External hemorrhoids in the same area. Multiple fissures were noticed at the 12:00 3:00 and 6 o'clock position. There is a lot of scar tissue from previous hemorrhoidectomy. Procedure Description: After informed consent was obtained the patient was taken to the operating room and placed on the operating room table. He was then placed in a sitting position and a spinal was done by Juanpablo Malloy CRNA. He was then placed in the supine position and his legs were placed in stirrups. This position was selected due to patient's paraplegia. Patient was then sedated. Monitors were applied. At this point a timeout was done. The patient's name, date of , allergies to medications, procedure to be done, antibiotics given were reviewed. Fire risk was assessed. Next this perineum was prepped and draped in a sterile surgical fashion with iodine. At this point in exam was done of his anus. Right away a large fissure was identified at 6 o'clock position. There were 2 large external hemorrhoids on either side of the fissure. A anoscope was introduced and 4 large internal hemorrhoids were identified as well at the 4,5,6 and 8:00 positions. Using the LigaSure the internal hemorrhoids were removed without difficulty. Minimal bleeding was identified. Using the LigaSure again the external hemorrhoids were also removed. 1 of the excision size opened up and so it was sutured with 4-0 chromic suture. The endoscope was replaced and no more internal hemorrhoids were identified. A lot of scarring was identified as well circumferentially. The scar tissue was dilated as much as possible at which point there was liquid stool that came out without any difficulty. The perineum was cleaned and dried and an ABD was placed. Surgical panties were placed on the patient as well. His legs were placed back down onto the table and he was pulled up in the bed and then transferred to the [facility]. He tolerated the procedure well. He was taken to PACU in stable condition. There were no immediate complications.
[2019-02-16] MEDS: oxyCODONE 5 MG TAB PO (13:22)
== END 2019-02-16 15:25 | disposition home or self-care (01) ==
PROVIDERS: PCP Family Medicine; Visit Provider Surgery
PROC: (CPT 46221; principal; 2019-02-16 10:30)
PROC: (CPT 46221; 2019-02-16 10:30)
DX: K64.8 Other hemorrhoids (principal); D50.0 Iron deficiency anemia secondary to blood loss (chronic); K60.2 Anal fissure, unspecified; G82.50 Quadriplegia, unspecified
CPT/HCPCS: 46221; NC; J2250

== ENCOUNTER → 2019-03-08 14:19 | Outpatient (BNVA) | payer MEDICARE, MEDICAID, SELFPAY | PROVIDERS: PCP Family Medicine; Referring Provider Family Medicine; Visit Provider Surgery | DX: Z48.815 Encounter for surgical aftercare following surgery on the digestive system (principal); Z87.19 Personal history of other diseases of the digestive system ==

== ENCOUNTER 2020-11-14 23:08 | Outpatient (REF) | payer MEDICARE, MEDICAID, SELFPAY ==
[2020-11-14 22:15] LABS: Bilirubin Negative (Negative); Blood Negative (Negative); Clarity Clear (Clear); Glucose Negative (Negative); Ketones Negative (Negative); Leukocyte Esterase Trace (Negative); Nitrite Negative (Negative); Specific Gravity >= 1.030 (1.005-1.025); Urobilinogen 0.2 EU/dL (Up TO 0.2)
[2020-11-14 22:26] LABS: Bacteria Few HPF (Negative); Casts Negative LPF (Negative); Crystals Negative HPF (Negative); Epithelial Cells Rare HPF (Negative); Mucus Negative (Negative); Other Cells Negative (Negative); RBC Negative HPF (0-2)
[2020-11-14 22:27] LABS: C & S Indicated? C&S Done As Ordered
== END 2020-11-14 23:09 | disposition home or self-care (01) ==
LOC: LBN 23:08
PROVIDERS: PCP Family Medicine; Visit Provider Physician Assistant
DX: R31.9 Hematuria, unspecified (principal)
CPT/HCPCS: 87077; 81003; 81015; 87086; 87186

== ENCOUNTER 2021-04-15 18:37 | Outpatient (REF) | payer MEDICARE, MEDICAID, SELFPAY ==
[2021-04-17 10:50] LABS: COVID-19 RT-PCR UVMMC Result Negative (Negative)
== END 2021-04-15 18:38 | disposition home or self-care (01) ==
LOC: LBN 18:37
PROVIDERS: PCP Family Medicine; Visit Provider Physician Assistant
DX: J02.9 Acute pharyngitis, unspecified (principal); Z20.822 Contact with and (suspected) exposure to COVID-19
CPT/HCPCS: U0003; U0005; 87070

== ENCOUNTER → 2022-09-23 13:56 | Outpatient (BNVA) | payer MEDICARE, MEDICAID, SELFPAY | PROVIDERS: PCP Family Medicine; Referring Provider Family Medicine; Visit Provider Surgery | DX: K62.3 Rectal prolapse (principal); K64.9 Unspecified hemorrhoids; G82.50 Quadriplegia, unspecified | CPT/HCPCS: 99203; 99212 ==

== ENCOUNTER → 2022-10-13 11:28 | Outpatient (BNVA) | payer MEDICARE, MEDICAID, SELFPAY | PROVIDERS: PCP Family Medicine; Referring Provider Family Medicine; Visit Provider Student in an Organized Health Care Education/Training Program | DX: K61.1 Rectal abscess (principal); K64.9 Unspecified hemorrhoids; G82.50 Quadriplegia, unspecified; R50.81 Fever presenting with conditions classified elsewhere | CPT/HCPCS: 99215 ==

== ENCOUNTER 2022-10-13 12:37 | Inpatient (IN) | payer MEDICARE, MEDICAID, SELFPAY ==
[2022-10-13 12:39] VITALS: BP 112/63; PULSE 77; RESP 16; TEMP 37.1; O2SAT 96
--- NOTE | 2022-10-13 13:08 | W.ED.GENAD ---
Discharge Plan Disposition Patient Disposition: Admit to [facility] Condition: Stable Discharge Details Clinical Impression: Infected pilonidal cyst Admit Date/Time: 10/13/22 16:16 Admit Provider: Yarely Pradhan Attending Provider: Yarely Pradhan Primary Care Provider: Donte Padgett ED Provider: Heena Stone Discharge Data Discharge Date/Time-TO BE ENTERED AT DEPARTURE: 10/13/22 17:19 Medical Decision Making Patient is a pleasant 32 year old male, accompanied by dad, with chief complaint of perirectal pain. Patient has known issues with hemorrhoids. This has been an ongoing issue for him since he became paralyzed several years ago. He has had surgery for this but as the tissue was being very friable and there was concern for complications, it was deemed that this was not safe to be completed at this time by our general surgical team. However, patient was referred to a rectal specialist whom he saw this morning in our outpatient office. They were concerned for potential perirectal abscess and sent him to the emergency department with plan for surgical intervention tomorrow if warranted. He denies any fevers but states that he has had chills for the past week. His perirectal pain has been steadily increasing over the past 3 weeks but noted a marked increase in pain over the past 1. He states that he has chronic abdominal pain but no acute change in this. Is also noted some lower extremity edema which is new for the patient. On exam, patient appears fatigued and uncomfortable. Abdomen is benign. He has no thigh involvement. He has large area of warmth/erythema/flucutance around the anus tracking toward the testicles and covering perineum. As the patient did have evaluation by surgeon this morning, I did not complete a internal rectal exam. Patient advised that the plan of the surgical team was to obtain CT imaging, labs, begin IV antibiotics and admission for surgical intervention tomorrow. I do agree with this plan we will continue to move forward with this. Labs reviewed. Patient is awake and of 11.2. Slightly anemic with a hemoglobin of 13 which is up from the patient's baseline. Lactate within normal limits. CMP without significant abnormality. Urinalysis is positive for nitrites and moderate leukocyte esterase. Patient did request having a catheter in place as he does self cath at home and advised if he has to have the procedure repeated inpatient this would be more beneficial to him. He is already been giving Flagyl and ciprofloxacin for his concerning likely perirectal abscess. Reviewed micro report from previous UTI. Images reviewed by myself and abscess was noted. Awaiting callback from radiology. We will call surgical team cap and hat production supervisor to discuss Constuled with Dr. Pradhan, she will admit for continued IV abx, plan for drainage tomorrow. He has received IV abx. Will place holding orders. Discussed with patient who is in agreement with this plan. Was given narcotics for pain management. HPI General Date/Time Provider Initiated Documentation: 10/13/22 13:08. Limitations to Documentation: no limitations. Information obtained by: patient, RN notes reviewed and old records reviewed. History of Present Illness 32 year old M presents to the emergency department with the chief complaint of fever, recurrent and worsening pilonidal cyst, described as severe and similar to prior episodes, Quality is described as aching, and is localized to the buttocks. Patient reports no radiation. Patient started experiencing this day(s) and it has been constant. No relieving factors improve symptom(s), No exacerbating factors reported . Patient notes fever/chills, malaise and weakness (baseline paraplegia); denies chest pain, cough, loss of appetite, nausea/vomiting, rash and shortness of breath. Patient did receive the following treatments prior to arrival, none Related Data Home Medications Medication Instructions Recorded Confirmed catheter 12 Fr (Bard Coude Tip #240 ea 03/25/16 10/13/22 Catheter) naproxen sodium 220 mg capsule 220 mg PO BID PRN 02/16/19 10/13/22 (Aleve) vardenafil 20 mg tablet 10 - 20 mg PO DAILY PRN sexual 10/05/21 10/13/22 activity #6 tab-caps baclofen 20 mg tablet 20 mg PO QID 10/13/22 10/13/22 buprenorphine HCl 600 mcg buccal 600 mcg buccal BID 10/13/22 10/13/22 film ([place]) gabapentin 400 mg capsule 800 mg PO TID 10/13/22 10/13/22 hydromorphone 8 mg tablet 8 - 16 mg PO Q8H PRN Pain 10/13/22 10/13/22 naloxegol 25 mg tablet (Movantik) 25 mg PO DAILY 10/13/22 10/13/22 ciprofloxacin HCl 500 mg tablet 500 mg PO BID #14 tabs 10/15/22 metronidazole 500 mg tablet 500 mg PO TID #21 tabs 10/15/22 Previous Rx's Medication Instructions Recorded vardenafil 20 mg tablet 10 - 20 mg PO DAILY PRN sexual 10/05/21 activity #6 tab-caps ciprofloxacin HCl 500 mg tablet 500 mg PO BID #14 tabs 10/15/22 metronidazole 500 mg tablet 500 mg PO TID #21 tabs 10/15/22 Allergies Allergy/AdvReac Type Severity Reaction Status Date / Time No Known Allergies Allergy Verified 10/13/22 11:37 General Stated Complaint: GenMedical HAILE: 3 Review of Systems Constitutional Constitutional: Reports as per HPI, Reports chills, Reports fever(s) and Denies headache(s) ENT Ears, Nose, Mouth, and Throat: Denies headache(s) Cardiovascular Cardiovascular: Reports as per HPI, Denies chest pain and Denies dyspnea Respiratory Respiratory: Reports as per HPI, Denies cough and Denies dyspnea Gastrointestinal Gastrointestinal: Reports as per HPI, Denies abdominal pain, Denies melena, Denies fecal incontinence (has to self stimulate to produce a BM), Denies nausea, Denies vomiting and Reports other (rectal pain, recurrent pilonidal cyst) Genitourinary Genitourinary: Reports other (self caths at home) Musculoskeletal Musculoskeletal: Reports as per HPI and Denies back pain Integumentary/Breasts Skin/Breast: Reports as per HPI and Denies rash Neurologic Neurologic: Reports as per HPI and Denies headache(s) PFSH All Active Problems (Updated 10/20/22 @ 08:40 by MALCOM Carrera) Infected pilonidal cyst (Acute) Rectal prolapse (Acute) Hemorrhoids (Acute) Erectile dysfunction (Acute) Quadriplegia following spinal cord injury (Chronic) Tobacco abuse (Chronic) a. 1 PPD H/O surgical procedure (Chronic) a. appendectomy 09/1996 Anemia (Acute) Sepsis (Acute) Internal bleeding hemorrhoids (Acute) Esophagitis (Acute) [facility] [place] LA GRADE A DISTAL ESOPHAGITIS, IRREGULAR Z LINE Fatigue (Chronic) Status post appendectomy (Acute) Reactive airway disease (Acute) Migraine (Acute) 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 (Acute 06/16/14) Depression (Acute) Closed fracture of fifth metacarpal bone (Acute 05/12/09) Anxiety (Acute) Paralysis (Chronic) Medical History (Updated 10/20/22 @ 08:40 by MALCOM Carrera) Chronic pain Left lower abdomen GERD (gastroesophageal reflux disease) Iron deficiency anemia due to dietary causes 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 Father No problems noted. Sister No problems noted. Brother No problems noted. Grandfather Personal history of malignant neoplasm LUNG Grandfather No problems noted. Grandmother No problems noted. Grandmother No problems noted. Social History Smoking/Tobacco Use Status: Current every day Tobacco Type: cigarettes Smoking packs per day: 1 Smoking cigarettes per day: 20.0 Smoking risk assessment performed?: Yes Alcohol Intake: current Alcohol Intake frequency: holidays/special occasions only Drug use: Daily Substance use type: marijuana Details: Pt smokes marijuana HS. Marijuana: t-1 , bowl. Alcohol:t-10 Current gender identity: male Do you feel safe at home: Yes Do you feel safe in your relationship?: Yes Additional Social history: Weighed pt with carol, pt. used wheelchair Exam Const General: cooperative, healthy appearing, comfortable, no acute distress and well developed Nutritional Appearance: average body habitus and well nourished Orientation: alert and awake [facility] Head: normal to inspection Mouth: moist mucous membranes Resp Effort & Inspection: normal respiratory effort, able to speak in complete sentences and no respiratory distress Auscultation: clear to auscultation bilaterally, no rales, no rhonchi and no wheezes Cardio Rate: regular rate Rhythm: regular rhythm Heart Sounds: S1 normal and S2 normal GI Inspection: normal to inspection Palpation: soft, not firm, no guarding and nontender Rectal Exam: abnormal visual inspection (surrounding erythema, warmth with fluctuance sugestive of pilonidal cyst) Back/Spine/Pelvis Back: no CVA tenderness Skin General skin exam: erythema (large area around anus, extending into perineum, fluctuant and warm) Neuro General: patient alert and patient awake Cognition: normal cognition Speech: speech normal Psych Appearance: grossly normal and well kempt Mental Status: mental status grossly normal Speech and Movement: speech and movement normal Course Vital Signs Vital signs: Vital Signs Temperature 37.1 C 10/13/22 12:39 Pulse 77 10/13/22 12:39 Respiratory Rate 16 10/13/22 12:39 Blood Pressure 112/63 10/13/22 12:39 Pulse Oximetry 96 10/13/22 12:39 Temperature 37.1 C 10/13/22 12:39 Temperature Source Oral 10/13/22 12:39 Pulse 77 10/13/22 12:39 Respiratory Rate 16 10/13/22 12:39 Respiratory Effort Normal 10/13/22 12:42 Blood Pressure 112/63 10/13/22 12:39 Blood Pressure Position Sitting 10/13/22 12:39 Pulse Oximetry 96 10/13/22 12:39 Oxygen Delivery Method Room Air 10/13/22 12:39 Oxygen Flow Rate 0 10/13/22 12:39 Pain Level 9 10/13/22 12:39
--- NOTE | 2022-10-13 13:30 | DI.CT_ITS ---
Exam(s) CT ABDOMEN PELVIS W EXAM: CT ABDOMEN PELVIS W CLINICAL HISTORY: perirectal abscess TECHNIQUE: Imaging Protocol: Axial computed tomography images with coronal and sagittal reformatted images were created and reviewed CONTRAST MATERIAL: Intravenous: Omnipaque 350 Contrast volume:100 mL Oral: None COMPARISON: CT ABD PELVIS WITH CONTRAST from 08/25/2014 FINDINGS: ABDOMEN: Lung Bases: There is dependent atelectasis. Liver: Normal density. No measurable mass. Portal, Superior Mesenteric, and Splenic Veins: Unremarkable. Gallbladder and Biliary Tract: No radiodense calculus or dilation. Pancreas: Normal density, no abnormal calcifications or inflammatory process. Spleen: Normal. Adrenals: No masses seen. Kidneys: Normal size, contour and axis. No radiodense stones or obstructive uropathy. No masses seen. Abdominal Aorta: Abdominal portion non-dilated. Atherosclerosis. Bowel: No obstruction or bowel wall thickening. Appendix is unremarkable. Peritoneal Cavity: No ascites, collection or mesenteric inflammatory response. No free air. Lymph Nodes: There are mildly enlarged lymph nodes seen in the inguinal regions bilaterally. The lar gest measures 1.9 cm and is located on the left. These are likely reactive. Bones: Within normal limits for the patient's age. 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 Soft Tissues: There is a 4.3 x 2.7 cm perirectal abscess to the left of the anus. There is surroundi ng skin thickening and soft tissue edema. PELVIS: Bladder: The urinary bladder is incompletely distended with a Todd catheter in place. Reproductive Organs: Unremarkable as visualized. Lymph Nodes: Within normal limits. Bones: Within normal limits for the patient's age. IMPRESSION: 1. There is a 4.3 x 2.7 cm left perirectal abscess. 2. Findings were discussed with Heena Stone at 3:44 p.m. on 10/13/2022. RADIATION DOSE DELIVERED: 1,215.74mGy.cm Total DLP DATA REPOSITORY: All CT scans at this facility are submitted to the National Radiology Data Registry (NRDR) Dose Index Registry (DIR) with the [employer] (ACR). RADIATION OPTIMIZATION: All CT scans at this facility use at least one of these dose optimization te chniques: automated exposure control; mA and/or kV adjustment per patient size (includes targeted exa ms where dose is matched to clinical indication); or iterative reconstruction.
[2022-10-13 14:10] LABS: Abs Immature Grans 0.03 10^3/uL (0.0-0.06); Absolute Basophil Count 0.03 10^3/uL (0.0-0.2); Absolute Eosinophil Count 0.24 10^3/uL (0.0-0.7); Absolute Lymphocyte Count 1.39 10^3/uL (1.2-3.4); Absolute Monocyte Count 0.99 10^3/uL (0.1-0.8); Absolute Neutrophil Count 8.53 10^3/uL (1.2-6.7); Basophils % 0.3; Eosinophils % 2.1; HCT 39.2 % (40.0-50.0); Immature Grans % 0.3; Lactate 0.8 mmol/L (0.6-1.4); Lymphocytes % 12.4; MCH 28.3 pg (27.0-33.0); MCHC 33.2 % (32.0-36.0); MCV 85 fL (80-95); MPV 9.8 fL (8.0-11.0); Monocytes % 8.8; Neutrophils % 76.1; Platelet Count 246 10^3/uL (130-400); RDW 12.6 % (11.8-14.1); RDW-SD 39.5 fL; WBC 11.21 10^3/uL (4.4-10.8)
[2022-10-13] MEDS: CIPROFLOXACIN 400 MG/200 ML BAG 200 MG IVPB ×2 (14:11→18:22)
[2022-10-13] MEDS: metroNIDAZOLE 500 MG/100 ML BAG 100 MG IVPB ×2 (14:11→19:53)
[2022-10-13] MEDS: Normal Saline 1,000 ML 1000 ML IV (14:12)
[2022-10-13 14:26] LABS: ALT 26 U/L (16-63); AST 22 U/L (15-37); Albumin 3.2 g/dL (3.4-5.0); Alkaline Phosphatase 98 U/L (46-116); Anion Gap 8.8 mmol/L (3-11); BUN 8 mg/dL (7-18); Bilirubin, Total 0.5 mg/dL (0.2-1.0); CO2 27.2 mmol/L (21.0-32.0); CREATININE 0.7 mg/dL (0.70-1.30); Chloride 99 mmol/L (98-107); Estimated GFR 125.55 (mL/min/1.73m2); Glucose 100 mg/dL (74-106); Potassium 3.9 mmol/L (3.5-5.1); Sodium 135 mmol/L (136-145); Total Protein 7.2 g/dL (6.4-8.2)
[2022-10-13 14:44] LABS: Bilirubin Negative (Negative); Blood Negative (Negative); Clarity Sl Cloudy (Clear); Glucose Negative (Negative); Ketones Negative (Negative); Leukocyte Esterase Moderate (Negative); Nitrite Positive (Negative); Specific Gravity 1.025 (1.005-1.025); Urobilinogen 0.2 mg/dL (Up to 0.2)
[2022-10-13] MEDS: MORPHine 4 MG/ML SYR IM (14:49)
[2022-10-13 14:50] LABS: Bacteria Many HPF (Negative); C & S Indicated? Yes; Casts Negative LPF (Negative); Crystals Negative HPF (Negative); Epithelial Cells Rare HPF (Negative); Mucus Negative (Negative); RBC Negative HPF (0-2); WBC >50 HPF (0-5)
[2022-10-13 15:02] LABS: Source Nasal/Nares
[2022-10-13] MEDS: Omnipaque 350 MG/ML 500 ML BTL-Imaging package IJ (15:02)
[2022-10-13] MEDS: Normal Saline - Diluent 50 ML VIAL IJ (15:05)
[2022-10-13 15:12] VITALS: RESP 18
[2022-10-13 15:21] VITALS: BP 109/63; PULSE 79; RESP 18; TEMP 37.2; O2SAT 96
[2022-10-13 15:52] LABS: COVID-19 PCR Negative (Negative)
[2022-10-13] MEDS: ACETAMINOPHEN 1,000 MG/100 ML BTL 400 MG IVPB (15:58)
[2022-10-13] MEDS: HYDROmorphone 2 MG/ML SYR 1 MG IVP (16:45)
[2022-10-13 17:29] VITALS: BP 109/63; PULSE 79; RESP 18; O2SAT 96
[2022-10-13 17:35] VITALS: BP 114/59; PULSE 78; RESP 17; TEMP 37.2; O2SAT 97
--- NOTE | 2022-10-13 17:47 | W.PM.HP.N ---
Date of service: 10/13/22 Time of Service: 17:48 Assessment and Plan Assessment and plan (1) Perirectal abscess: Status: Acute Assessment and plan: Eri is being admitted to the hospital for perirectal abscess and urinary tract infection. Plan is for IV antibiotics and surgery tomorrow for an incision and drainage of abscess. I discussed the surgery with body as well as the risks and benefits as well as complications. I discussed with him that the cavity would have to be packed so he will most likely need some home health to help with daily dressing changes. The ER did place a Todd catheter today and we will leave that in until right before he is discharged. The antibiotics he is on for his perirectal abscess should also cover his urinary tract infection. I did discuss home health needs with care management so they can try to set something up by Thursday or . I will do a [id number] home health visit tomorrow. Diet: regular, NPO after midnight Fluids: start at midnight DVT prophilaxis: LOvenox to start after surgery Pulmonary toilet: ISP, deep breating and cough ANBx: Cipro and Flagyl GI prophilaxis: Pepcid IV Complications of surgery include but are not limited to injury to the rectal wall with creation of a fistula, injury to the rectal sphincter which could lead to incontinence, recurrence of the abscess, and bleeding. Questions were entertained and answered to his satisfaction and he wished to proceed. No guarantees were given or implied. (2) Acute UTI (urinary tract infection): Status: Acute History of Present Illness Consults Consult date: 10/13/22 Requesting physician: Heena Stone Narrative: Eri was seen today in the office with increased pain in the rectal area. On exam he was noted to have an area of induration and redness. It was felt that he more than likely had an abscess and that the pain he was having is not due to his hemorrhoids or his rectal prolapse. He was sent to the emergency department for a CT scan. CT scan showed a 4 x 2 cm abscess. I did review the CT scan myself today. His white count is just above normal at 11.4. Otherwise his labs are pretty unremarkable. He did have a UA done as well which looks like he has a urinary tract infection. I discussed these findings with Guillermina and recommended admission for IV antibiotics and then surgery tomorrow for an incision and drainage of the abscess. Even though he is a paraplegic he has not completely lost sensation in the perirectal area. He will need local as well as some sedation. Review of Systems Constitutional Constitutional: Denies anorexia, Denies chills, Denies fever(s), Denies headache(s) and Denies weight loss Eyes Eyes: Reports system reviewed and no additional complaints, except as documented ENT Ears, Nose, Mouth, and Throat: Reports system reviewed and no additional complaints, except as documented and Denies headache(s) Cardiovascular Cardiovascular: Denies chest pain, Denies chest pain at rest, Denies irregular heart rhythm, Denies dyspnea and Denies dyspnea on exertion Respiratory Respiratory: Denies chest congestion, Denies cough, Denies dyspnea and Denies dyspnea on exertion Gastrointestinal Gastrointestinal: Reports as per HPI, Denies dyspepsia and Denies heartburn Genitourinary Genitourinary: Reports as per HPI Musculoskeletal Musculoskeletal: Reports system reviewed and no additional complaints, except as documented Integumentary/Breasts Skin/Breast: Reports system reviewed and no additional complaints, except as documented Neurologic Neurologic: Reports system reviewed and no additional complaints, except as documented and Denies headache(s) Psychiatric Psychiatric: Reports system reviewed and no additional complaints, except as documented Endocrine Endocrine: Reports system reviewed and no additional complaints, except as documented Hematologic/Lymphatic Hematologic/Lymphatic: Reports system reviewed and no additional complaints, except as documented Allergic/Immunologic Allergic/Immunologic: Reports system reviewed and no additional complaints, except as documented PFSH All Active Problems Perirectal abscess (Acute) Rectal prolapse (Acute) Hemorrhoids (Acute) Erectile dysfunction (Acute) Quadriplegia following spinal cord injury (Chronic) Tobacco abuse (Chronic) a. 1 PPD H/O surgical procedure (Chronic) a. 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 Father No problems noted. Sister No problems noted. Brother No problems noted. Grandfather Personal history of malignant neoplasm LUNG Grandfather No problems noted. Grandmother No problems noted. Grandmother No problems noted. Social History Smoking/Tobacco Use Status: Current every day Tobacco Type: cigarettes Smoking packs per day: 1 Smoking cigarettes per day: 20.0 Smoking risk assessment performed?: Yes Alcohol Intake: current Alcohol Intake frequency: holidays/special occasions only Drug use: Daily Substance use type: marijuana Details: Pt smokes marijuana HS. Marijuana: t-1 , bowl. Alcohol:t-10 Current gender identity: male Do you feel safe at home: Yes Do you feel safe in your relationship?: Yes Additional Social history: Weighed pt with carol pt. used wheelchair Meds Allergies and Home Medications Allergies Allergy/AdvReac Type Severity Reaction Status Date / Time No Known Allergies Allergy Verified 10/13/22 11:37 Home Medications Medication Instructions Recorded Confirmed Type catheter 12 Fr (Bard Coude Tip #240 ea 03/25/16 10/13/22 History Catheter) naproxen sodium 220 mg capsule 220 mg PO BID PRN 02/16/19 10/13/22 History (Aleve) vardenafil 20 mg tablet 10 - 20 mg PO DAILY PRN sexual 10/05/21 10/13/22 Rx activity #6 tab-caps baclofen 20 mg tablet 20 mg PO QID 10/13/22 History buprenorphine HCl 600 mcg buccal 600 mcg buccal BID 10/13/22 History film (Belbuca) gabapentin 400 mg capsule 800 mg PO TID 10/13/22 History hydromorphone 8 mg tablet 8 - 16 mg PO Q8H PRN Pain 10/13/22 History naloxegol 25 mg tablet (Movantik) 25 mg PO DAILY 10/13/22 History Exam Const General: cooperative, comfortable and no acute distress Orientation: alert and oriented x3 HENMT Head: normocephalic and atraumatic Resp Effort & Inspection: normal respiratory effort Auscultation: clear to auscultation bilaterally Cardio Rate: regular rate Rhythm: regular rhythm GI Palpation: soft, no hepatosplenomegaly and nontender Rectal Exam: deferred Results Imaging Abdomen CT scan report/results: report reviewed and image reviewed CT scan - pelvis: report reviewed and image reviewed Labs 10/13/22 14:00 10/13/22 14:00 Labs: Laboratory Results - last 24 hr 10/13/22 10/13/22 10/13/22 13:41 14:00 14:00 WBC 11.21 H RBC 4.60 Hgb 13.0 L Hct 39.2 L MCV 85 MCH 28.3 MCHC 33.2 RDW 12.6 Plt Count 246 MPV 9.8 Immature Gran % 0.3 Neutrophils % 76.1 Lymphocytes % 12.4 Monocytes % 8.8 Eosinophils % 2.1 Basophils % 0.3 Nucleated RBC % 0.0 Absolute Neutrophils 8.53 H Absolute Lymphocytes 1.39 Absolute Monocytes 0.99 H Absolute Eosinophils 0.24 Absolute Basophils 0.03 VBG Lactate Sodium 135 L Potassium 3.9 Chloride 99 Carbon Dioxide 27.2 Anion Gap 8.8 BUN 8 Creatinine 0.7 Est GFR (CKD-EPI 2020) 125.55 Glucose 100 Calcium 9.0 Magnesium 2.0 Total Bilirubin 0.5 AST 22 ALT 26 Alkaline Phosphatase 98 Total Protein 7.2 Albumin 3.2 L Urine Color Urine Clarity Urine pH Ur Specific [place] Urine Protein Urine Ketones Urine Blood Urine Nitrite Urine Bilirubin Urine Urobilinogen Ur Leukocyte Esterase Urine RBC Urine WBC Ur Epithelial Cells Urine Crystals Urine Bacteria Urine Casts Urine Mucus Ur Culture Indicated? Urine Glucose Fluid Type Cancelled Fluid LDH Cancelled COVID-19 Source SARS-CoV-2 (PCR) 10/13/22 10/13/22 10/13/22 14:00 14:33 14:58 WBC RBC Hgb Hct MCV MCH MCHC RDW Plt Count MPV Immature Gran % Neutrophils % Lymphocytes % Monocytes % Eosinophils % Basophils % Nucleated RBC % Absolute Neutrophils Absolute Lymphocytes Absolute Monocytes Absolute Eosinophils Absolute Basophils VBG Lactate 0.8 Sodium Potassium Chloride Carbon Dioxide Anion Gap BUN Creatinine Est GFR (CKD-EPI 2020) Glucose Calcium Magnesium Total Bilirubin AST ALT Alkaline Phosphatase Total Protein Albumin Urine Color Dark Yellow Urine Clarity Sl Cloudy Urine pH 6.0 Ur Specific [place] 1.025 Urine Protein Trace H Urine Ketones Negative Urine Blood Negative Urine Nitrite Positive H Urine Bilirubin Negative Urine Urobilinogen 0.2 Ur Leukocyte Esterase Moderate H Urine RBC Negative Urine WBC >50 H Ur Epithelial Cells Rare Urine Crystals Negative Urine Bacteria Many Urine Casts Negative Urine Mucus Negative Ur Culture Indicated? Yes Urine Glucose Negative Fluid Type Fluid LDH COVID-19 Source Nasal/Nares SARS-CoV-2 (PCR) Negative Last Vital Signs Temp 99.0 F 10/13/22 17:35 Pulse 78 10/13/22 17:35 Resp 17 10/13/22 17:35 BP 114/59 L 10/13/22 17:35 Pulse Ox 97 10/13/22 17:35 Time Spent Time spent with Patient: <40 minutes Time was spent: preparing to see the patient(eg.review tests), ordering medications,tests, procedures, indepentently interpreting results, counseling the patient and care coordination
[2022-10-13] MEDS: HYDROmorphone 4 MG TAB 8 MG PO (18:35)
[2022-10-13] MEDS: Gabapentin 400 MG CAP 800 MG PO (19:53)
[2022-10-13] MEDS: Baclofen 10 MG TAB 20 MG PO (19:53)
[2022-10-13] MEDS: Normal Saline Flush 10 ML SYR IVP ×2 (19:54→21:15)
[2022-10-13] MEDS: MORPHine 2 MG/ML SYR IVP (21:15)
[2022-10-13 23:10] VITALS: BP 106/56; PULSE 78; RESP 20; TEMP 37.4; O2SAT 97
[2022-10-14] VITALS (8 sets, daily range): BP systolic 94–127; BP diastolic 54–77; PULSE 64–71; RESP 12–17; TEMP 36.6–37.1; O2SAT 93–98; BMI 26.4
[2022-10-14] MEDS: Normal Saline 1,000 ML 75 ML IV (00:05)
[2022-10-14] MEDS: metroNIDAZOLE 500 MG/100 ML BAG 100 MG IVPB ×3 (03:52→19:43)
[2022-10-14] MEDS: CIPROFLOXACIN 400 MG/200 ML BAG 200 MG IVPB ×2 (05:35→17:03)
[2022-10-14] MEDS: Normal Saline Flush 10 ML SYR IVP ×2 (05:35→21:47)
[2022-10-14] MEDS: MORPHine 2 MG/ML SYR IVP ×6 (05:35→21:46)
[2022-10-14 06:17] LABS: Abs Immature Grans 0.02 10^3/uL (0.0-0.06); Absolute Basophil Count 0.03 10^3/uL (0.0-0.2); Absolute Eosinophil Count 0.34 10^3/uL (0.0-0.7); Absolute Lymphocyte Count 1.71 10^3/uL (1.2-3.4); Absolute Monocyte Count 0.77 10^3/uL (0.1-0.8); Absolute Neutrophil Count 5.81 10^3/uL (1.2-6.7); Basophils % 0.3; Eosinophils % 3.9; HCT 37.3 % (40.0-50.0); HGB 12.2 g/dL (13.5-17.5); Immature Grans % 0.2; Lymphocytes % 19.7; MCHC 32.7 % (32.0-36.0); MCV 86 fL (80-95); Monocytes % 8.9; Platelet Count 234 10^3/uL (130-400); RBC 4.35 10^6/uL (4.36-5.78); RDW 12.9 % (11.8-14.1); RDW-SD 40.5 fL; WBC 8.68 10^3/uL (4.4-10.8)
--- NOTE | 2022-10-14 09:30 | ANES.PREOP_ITS ---
General Info Date of Service Date Performed: 10/14/22 Height: 6 ft 4 in Weight: 98.4 kg Body Mass Index (BMI): 26.4 Surgical Procedure: Operation Date: 10/14/22 10:25 Proposed Procedure Side Surgeon p Excision-Dionne Rectal Abscess Drew Pardo MD Meds Allergies and Home Medications Allergies Allergy/AdvReac Type Severity Reaction Status Date / Time No Known Allergies Allergy Verified 10/13/22 11:37 Home Medication Medication Instructions Recorded catheter 12 Fr (Bard Coude Tip #240 ea 03/25/16 Catheter) naproxen sodium 220 mg capsule 220 mg PO BID PRN 02/16/19 (Aleve) vardenafil 20 mg tablet 10 - 20 mg PO DAILY PRN sexual 10/05/21 activity #6 tab-caps baclofen 20 mg tablet 20 mg PO QID 10/13/22 buprenorphine HCl 600 mcg buccal 600 mcg buccal BID 10/13/22 film (Belbuca) gabapentin 400 mg capsule 800 mg PO TID 10/13/22 hydromorphone 8 mg tablet 8 - 16 mg PO Q8H PRN Pain 10/13/22 naloxegol 25 mg tablet (Movantik) 25 mg PO DAILY 10/13/22 Current Visit Medications: Current Medications Generic Name Dose Route Start Last Admin Trade Name Freq PRN Reason Stop Dose Admin Acetaminophen 650 mg 10/13/22 16:16 Acetaminophen 325 Mg Tab PO Q6H PRN PRN Pain Baclofen 20 mg 10/13/22 20:00 10/13/22 19:53 Baclofen 10 Mg Tab PO 20 mg QID YARELI Administration Gabapentin 800 mg 10/13/22 20:00 10/13/22 19:53 Gabapentin 400 Mg Cap PO 800 mg TID YARELI Administration Hydromorphone HCl 8 mg 10/13/22 16:41 10/13/22 18:35 Hydromorphone 4 Mg Tab PO 8 mg TID PRN PRN Administration Sodium Chloride 1,000 mls @ 75 mls/hr 10/13/22 16:30 10/14/22 00:05 Saline 1000ml Bag IV 75 mls/hr INFUSION YARELI Administration Ciprofloxacin 400 mg in 200 mls @ 200 mls/hr 10/13/22 18:00 10/14/22 09:07 Cipro I.V. IVPB Infused Q12H YARELI Infusion Protocol Metronidazole 500 mg in 100 mls @ 100 mls/hr 10/13/22 20:00 10/14/22 04:55 Flagyl IVPB Infused Q8H YARELI Infusion IV Miscellaneous Supplies 1 each 10/13/22 13:45 Iv Access IV DIRECTED YARELI Morphine Sulfate 2 mg 10/13/22 16:16 10/14/22 09:16 Morphine 2 Mg/Ml Syr IVP 2 mg Q1H PRN PRN Administration Naproxen Sodium 220 mg 10/13/22 16:43 Naproxen Sodium 220 Mg Tab PO BID PRN PRN Ondansetron HCl 4 mg 10/13/22 16:16 Ondansetron 4 Mg/2 Ml Vial IVP Q4H PRN PRN Sodium Chloride 0 ml 10/13/22 13:31 10/14/22 05:35 Normal Saline Flush 10 Ml Syr IVP 10 ml PRN PRN Administration PFSH Active Problems Active Problems: Problem Status Onset Code Perirectal abscess K61.1 Rectal prolapse K62.3 Hemorrhoids K64.9 Erectile dysfunction N52.9 Quadriplegia following spinal cord injury G82.50 Tobacco abuse Z72.0 H/O surgical procedure Z98.89 Anemia D64.9 Sepsis A41.9 Acute UTI (urinary tract infection) N39.0 Internal bleeding hemorrhoids K64.8 Esophagitis K20.9 Fatigue R53.83 Status post appendectomy Z90.49 Reactive airway disease J45.909 Migraine G43.909 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 06/16/14 G82.54 Depression F32.9 Closed fracture of fifth metacarpal bone 05/12/09 S62.308A Anxiety F41.9 Paralysis G83.9 Medical History Medical History Chronic pain Left lower abdomen GERD (gastroesophageal reflux disease) Iron deficiency anemia due to dietary causes Quadriplegia due to spinal cord lesion between C5 to C7 Incomplete- has feeling in the rectal area and deep sensation in his legs Surgical History Surgical History Appendectomy (~09/1996) History of spinal fusion S/P hemorrhoidectomy (~03/2018) hemorrhoid banding Tobacco Smoking/Tobacco Use Status: Current every day Tobacco Type: cigarettes Smoking packs per day: 1 Alcohol Alcohol Intake: current Alcohol intake frequency: holidays/special occasions only Substance Use Substance use: Daily Substance use type: marijuana Details: Pt smokes marijuana HS. Marijuana: t-1 , bowl. Alcohol:t-10 Vital Signs and Lab Results Vital Signs Most Recent Vital Signs in EMR: Most Recent Vital Signs Temp Pulse Resp BP Pulse Ox 37.1 C 71 17 127/71 96 10/14/22 07:40 10/14/22 07:40 10/14/22 07:40 10/14/22 07:40 10/14/22 07:40 Lab Results 10/14/22 05:45 10/13/22 14:00 Blood Type / Crossmatch: No Data to Display Complete Blood Count: White Blood Count 8.68 10^3/uL (4.4-10.8) 10/14/22 05:45 Red Blood Count 4.35 10^6/uL (4.36-5.78) L 10/14/22 05:45 Hemoglobin 12.2 g/dL (13.5-17.5) L 10/14/22 05:45 Hematocrit 37.3 % (40.0-50.0) L 10/14/22 05:45 Platelet Count 234 10^3/uL (130-400) 10/14/22 05:45 Venous Blood Lactate 0.8 mmol/L (0.6-1.4) 10/13/22 14:00 Complete Metabolic Panel: Sodium 135 mmol/L (136-145) L 10/13/22 14:00 Potassium 3.9 mmol/L (3.5-5.1) 10/13/22 14:00 Chloride 99 mmol/L (98-107) 10/13/22 14:00 Carbon Dioxide 27.2 mmol/L (21.0-32.0) 10/13/22 14:00 BUN 8 mg/dL (7-18) 10/13/22 14:00 Creatinine 0.7 mg/dL (0.70-1.30) 10/13/22 14:00 Est GFR (CKD-EPI 2020) 125.55 (mL/min/1.73m2) 10/13/22 14:00 Magnesium 2.0 mg/dL (1.8-2.4) 10/13/22 14:00 Calcium 9.0 mg/dL (8.5-10.1) 10/13/22 14:00 Albumin 3.2 g/dL (3.4-5.0) L 10/13/22 14:00 Glucose 100 mg/dL (74-106) 10/13/22 14:00 Liver Function Panel: Alanine Aminotransferase (ALT/SGPT) 26 U/L (16-63) 10/13/22 14: 00 Aspartate Amino Transf (AST/SGOT) 22 U/L (15-37) 10/13/22 14:00 Coagulation Panel: No Data to Display Cardiac Panel: No Data to Display Arterial Blood Gas: No Data to Display Venous Blood Gas: No Data to Display Pancreas Panel: No Data to Display Thyroid Panel: No Data to Display Infectious Disease: Coronavirus (COVID-19)(PCR) Negative (Negative) 10/13/22 14:58 Coronavirus 2019 Source Nasal/Nares 10/13/22 14:58 Blood Cultures: No Data to Display Toxicology Panel: No Data to Display Anesthesia Assessment and Plan Anesthesia History Personal History: No History of Anesthesia Complications Family History: No Family History of Anesthesia Complications Exercise Tolerance Exercise Tolerance: Other (Incomplete spinal cord injury, resulting tetraplegia) Pertinent Negatives Pertinent Negatives: No Symptoms of GERD, No Major Cardiovascular Symptoms or Complaints and No Major Pulmonary Symptoms or Complaints Cardiac & Pulmonary Exam Cardiac Exam: Normal S1/S2 Heart Sounds Pulmonary Exam: Clear Bilateral Breath Sounds Implantable Cardiac Device Does patient have a Pacemaker or an ICD?: No Airway Exam Known Difficult Airway: No Mallampati Class: 2 Mouth Opening: Normal (> 3cm) Thyromental Distance: Greater than 3 cm Neck Range of Motion: Full ROM Neck Circumference: Normal Teeth Condition: Normal Dentition ASA Classification ASA Score: ASA 3 Emergency Case?: No NPO Status NPO Status: NPO Clears >2 hours, Solids >8 hours Anesthesia Plan Resuscitation Status: Full Code Anesthesia Technique: Spinal Anesthesia Airway Planned: Natural Airway Monitors Used: Standard Monitors Preoperative Comments:: GETA back up
--- NOTE | 2022-10-14 10:39 | W.PM.PROGNOT ---
Date of Service Date of service: 10/14/22 Time of Service: 11:00 Assessment and Plan Assessment and plan (1) Perirectal abscess: Status: Acute Assessment and plan: 32-year-old paraplegic man with perirectal abscess in need of incision and drainage. We talked about the possibility that this will turn into a draining fistula there is already a component which I am suspicious that there is based off his description. Seton may need to be placed. A drain may need to be placed. Is certainly at risk for this recurring. I do think the trauma of the way he is disimpacting/stimulating himself is the underlying problem and all of this and he is going to need to rethink and reconsider his bowel management strategies. Plan: Exam under anesthesia, incision/drainage of perirectal abscess, possible seton placement, possible drain placement Subjective Subjective Interval history since last seen: No issues overnight. No changes. Exam Narrative Exam Narrative: General: Nontoxic, comfortable and interactive Neuro: Alert and oriented x3 Psych: Appropriate mood and affect, good insight and understanding into his condition Objective Last Vital Signs Temp 98.8 F 10/14/22 07:40 Pulse 71 10/14/22 07:40 Resp 17 10/14/22 07:40 BP 127/71 10/14/22 07:40 Pulse Ox 96 10/14/22 08:00 Laboratory Results - last 24 hr 10/13/22 10/13/22 10/13/22 13:41 14:00 14:00 WBC 11.21 H RBC 4.60 Hgb 13.0 L Hct 39.2 L MCV 85 MCH 28.3 MCHC 33.2 RDW 12.6 Plt Count 246 MPV 9.8 Immature Gran % 0.3 Neutrophils % 76.1 Lymphocytes % 12.4 Monocytes % 8.8 Eosinophils % 2.1 Basophils % 0.3 Nucleated RBC % 0.0 Absolute Neutrophils 8.53 H Absolute Lymphocytes 1.39 Absolute Monocytes 0.99 H Absolute Eosinophils 0.24 Absolute Basophils 0.03 VBG Lactate Sodium 135 L Potassium 3.9 Chloride 99 Carbon Dioxide 27.2 Anion Gap 8.8 BUN 8 Creatinine 0.7 Est GFR (CKD-EPI 2020) 125.55 Glucose 100 Calcium 9.0 Magnesium 2.0 Total Bilirubin 0.5 AST 22 ALT 26 Alkaline Phosphatase 98 Total Protein 7.2 Albumin 3.2 L Urine Color Urine Clarity Urine pH Ur Specific [place] Urine Protein Urine Ketones Urine Blood Urine Nitrite Urine Bilirubin Urine Urobilinogen Ur Leukocyte Esterase Urine RBC Urine WBC Ur Epithelial Cells Urine Crystals Urine Bacteria Urine Casts Urine Mucus Ur Culture Indicated? Urine Glucose Fluid Type Cancelled Fluid LDH Cancelled COVID-19 Source SARS-CoV-2 (PCR) 10/13/22 10/13/22 10/13/22 14:00 14:33 14:58 WBC RBC Hgb Hct MCV MCH MCHC RDW Plt Count MPV Immature Gran % Neutrophils % Lymphocytes % Monocytes % Eosinophils % Basophils % Nucleated RBC % Absolute Neutrophils Absolute Lymphocytes Absolute Monocytes Absolute Eosinophils Absolute Basophils VBG Lactate 0.8 Sodium Potassium Chloride Carbon Dioxide Anion Gap BUN Creatinine Est GFR (CKD-EPI 2020) Glucose Calcium Magnesium Total Bilirubin AST ALT Alkaline Phosphatase Total Protein Albumin Urine Color Dark Yellow Urine Clarity Sl Cloudy Urine pH 6.0 Ur Specific [place] 1.025 Urine Protein Trace H Urine Ketones Negative Urine Blood Negative Urine Nitrite Positive H Urine Bilirubin Negative Urine Urobilinogen 0.2 Ur Leukocyte Esterase Moderate H Urine RBC Negative Urine WBC >50 H Ur Epithelial Cells Rare Urine Crystals Negative Urine Bacteria Many Urine Casts Negative Urine Mucus Negative Ur Culture Indicated? Yes Urine Glucose Negative Fluid Type Fluid LDH COVID-19 Source Nasal/Nares SARS-CoV-2 (PCR) Negative 10/14/22 05:45 WBC 8.68 RBC 4.35 L Hgb 12.2 L Hct 37.3 L MCV 86 MCH 28.0 MCHC 32.7 RDW 12.9 Plt Count 234 MPV 10.0 Immature Gran % 0.2 Neutrophils % 67.0 Lymphocytes % 19.7 Monocytes % 8.9 Eosinophils % 3.9 Basophils % 0.3 Nucleated RBC % 0.0 Absolute Neutrophils 5.81 Absolute Lymphocytes 1.71 Absolute Monocytes 0.77 Absolute Eosinophils 0.34 Absolute Basophils 0.03 VBG Lactate Sodium Potassium Chloride Carbon Dioxide Anion Gap BUN Creatinine Est GFR (CKD-EPI 2020) Glucose Calcium Magnesium Total Bilirubin AST ALT Alkaline Phosphatase Total Protein Albumin Urine Color Urine Clarity Urine pH Ur Specific [place] Urine Protein Urine Ketones Urine Blood Urine Nitrite Urine Bilirubin Urine Urobilinogen Ur Leukocyte Esterase Urine RBC Urine WBC Ur Epithelial Cells Urine Crystals Urine Bacteria Urine Casts Urine Mucus Ur Culture Indicated? Urine Glucose Fluid Type Fluid LDH COVID-19 Source SARS-CoV-2 (PCR) Time Spent with Patient Time Spent with Patient: <25 minutes Time was spent: referring, communicating with other health infant childcare provider, counseling the patient and care coordination
--- NOTE | 2022-10-14 11:04 | INITIAL_ITS ---
- If Service Date Differs Date of service: 10/14/22 Time of Service: 11:04 Care Management Initial Assess REASON FOR HOSPITALIZATION:: Perianal abscess PAST MEDICAL HISTORY/PAST SURGICAL HISTORY:: All Active Problems. Perirectal abscess (Acute). Rectal prolapse (Acute). Hemorrhoids (Acute). Erectile dysfunction (Acute). Quadriplegia following spinal cord injury (Chronic). Tobacco abuse (Chronic). a. 1 PPD. H/O surgical procedure (Chronic). a. appendectomy 09/1996. Anemia (Acute). Sepsis (Acute). Acute UTI (urinary tract infection) (Acute). Internal bleeding hemorrhoids (Acute). Esophagitis (Acute). [facility] [place]; LA GRADE A DISTAL ESOPHAGITIS, IRREGULAR Z LINE. Fatigue (Chronic). Status post appendectomy (Acute). Reactive airway disease (Acute). Migraine (Acute). 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 Depression (Acute). Closed fracture of fifth metacarpal bone (Acute 05/12/09). Anxiety (Acute). Paralysis (Chronic). Medical History. Chronic pain. Left lower abdomen. GERD (gastroesophageal reflux disease). Iron deficiency anemia due to dietary causes. Quadriplegia due to spinal cord lesion between C5 to C7. Incomplete- has feeling in the rectal area and deep sensation in his legs. Surgical History. Appendectomy (~09/1996). History of spinal fusion. S/P hemorrhoidectomy (~03/2018). hemorrhoid banding PREVIOUS FUNCTIONAL STATUS/SOCIAL/FAMILY SUPPORTS:: Living independently in his [facility] [address]. Has his own vehicle andis independet for all activities. Wheelchair dependent but has upper body movement. Many friends and family members in the area. CURRENT FUNCTIONAL STATUS:: Aly was in the OR when CM attempted to meet with him. Per report, he had an incision and drainage of the perirectal abscess today. CM will continue to follow. ADVANCE DIRECTIVES:: Not on file. CM will offer forms. Has patient been provided with info about the portal/API?: Yes Did the patient sign up for the portal?: Yes (active) CODE STATUS:: Full Code INSURANCE COVERAGE / FINANCIAL ISSUES:: [facility] CURRENT HOME/COMMUNITY SERVICES/EQUIPMENT:: Aly has his own wheelchair. PRIMARY CARE PHYSICIAN:: Donte Padgett POTENTIAL DISCHARGE NEEDS:: Follow up appointments. PATIENT/FAMILY EDUCATION NEEDS:: Review discharge instructions and limitations, discussion of self care needs including ask me three. ANTICIPATED BARRIERS TO DISCHARGE:: None identified. TRANSPORTATION:: Via private vehicle by family. PLAN:: Anticipate Aly will return home once medically cleared. His father will drive him home via private vehicle. He will follow up with his PCP and discharge plan of care. CM will continue to follow.
[2022-10-14] MEDS: Lactated Ringers 1,000 ML 30 ML IV (11:50)
[2022-10-14] MEDS: Ondansetron 4 MG/2 ML VIAL IV (11:55)
[2022-10-14] MEDS: Bupivacaine LIPOSOME/PF 133 MG/10 ML VIAL IJ (12:20)
--- NOTE | 2022-10-14 12:34 | W.PM.OP ---
Date of service: 10/14/22 Time of Service: 12:34 Operative Note Operative Note Refer to Anesthesia Record Procedure Description: Procedures performed: 1.? Exam under anesthesia 2.? Bilateral pudendal nerve block 3. Incision and drainage of perirectal abscess Preoperative diagnosis: Perirectal abscess Postoperative diagnosis: Same Surgeon: Roxanna Pardo Anesthesia: Patricia Indication for procedure: 32-year-old man with paraplegia who presented with a perirectal abscess. He lives alone and takes care of himself. He has a history of manual stimulation/manual disimpaction which he performs himself using instruments. Findings: Left?sided perirectal abscess incised and drained. Abscess cavity extends and involves left?sided perineum. The abscess cavity was explored bluntly and no draining tract going into the rectum was encountered. Surveillance/follow-up recommendations: Anything that he can do to avoid the anal and rectal trauma that is happening from his bowel habit techniques will be an improvement. More aggressive bowel regimen is likely the first place to start. Complications: None Blood loss: Minimal Specimens:? No, but cultures were taken. Procedure in detail: Written consent was obtained from the patient who was in agreement with the risks, benefits and indications of the procedure.? He gave him a spinal anesthetic (see separate procedure note) and he was then put to sleep. We then placed him in lithotomy. And draped perineum and perianal regions. Timeout performed and when we were all in agreement we started the procedure. Exam under anesthesia was performed. I did a bilateral pudendal nerve block with Exparel. Using an 18-gauge needle I then was able to identify the abscess cavity. A #11 blade was then used to incise and a copious amount of pus was expressed. Cultures were taken. The incision was made lateral to the anus and did not involve the sphincters. I then excised an ellipse of skin to ensure this would not heal over. I performed blunt dissection with a Monae clamp. I broke up loculations. Next I performed digital rectal examination and try to find and palpate a connection between the abscess cavity and the rectum. I was unable to find one. Satisfied that we had achieved adequate drainage and that there was no fistula tract present I placed packing within the abscess cavity. Hemostasis was excellent and we completed the procedure. Sponge, instrument and sharps count was correct x3 at the end of the procedure. He was taken to the PACU in hemodynamically stable condition.
[2022-10-14] MEDS: Gabapentin 400 MG CAP 800 MG PO ×2 (13:18→19:42)
[2022-10-14] MEDS: Baclofen 10 MG TAB 20 MG PO ×3 (13:19→19:43)
--- NOTE | 2022-10-14 13:33 | W.ANESPOSTOP ---
Postoperative Evaluation Date, Time and Location Date Performed: 10/14/22 Time Performed: 13:05 Patient Location: PACU Vital Signs Most Recent Imported Vital Signs: Most Recent Vital Signs Temp Pulse Resp BP Pulse Ox 36.6 C 64 12 103/58 L 93 10/14/22 12:55 10/14/22 13:05 10/14/22 13:05 10/14/22 13:05 10/14/22 13:05 Pain Score Most Recent Pain Score: Most Recent Pain Score Pain Level 0 10/14/22 13:05 Assessment Mental Status: Awake (Alert & Oriented to Patient Baseline) Airway and Respiratory Function: Patent airway with normal (patient baseline) respiratory exam Cardiovascular Function: Hemodynamically Stable Hydration Status: Adequately Hydrated Nausea & Vomiting: No Nausea or Vomiting Pain: Pt. Denies Any Pain Peripheral Nerve Block: Patient did not receive a nerve block
--- NOTE | 2022-10-14 13:55 | NUR.NOTE ---
Nursing Note: Patient was P/U from PACU & taken back to his room on the unit around 1330. VS stable, all questions &/ or concerns addressed. call light & belongings within reach. Scheduled meds were given. Will continue to monitor patient.
[2022-10-14] MEDS: HYDROmorphone 4 MG TAB 8 MG PO (17:02)
[2022-10-14] MEDS: Acetaminophen 325 MG TAB 650 MG PO (17:57)
[2022-10-14] MEDS: diphenhydrAMINE 25 MG CAP 50 MG PO (21:46)
[2022-10-15] MEDS: MORPHine 2 MG/ML SYR IVP ×2 (01:21→13:55)
[2022-10-15] MEDS: metroNIDAZOLE 500 MG/100 ML BAG 100 MG IVPB ×2 (03:45→12:33)
[2022-10-15] MEDS: CIPROFLOXACIN 400 MG/200 ML BAG 200 MG IVPB (05:32)
[2022-10-15 07:29] VITALS: BP 143/88; PULSE 76; RESP 16; TEMP 37.3; O2SAT 96
--- NOTE | 2022-10-15 07:43 | PGE_ITS ---
Aly was seen and examined by Dr. Pardo, and discharged prior to me seeing him Date of Service Date of service: 10/15/22 Time of Service: 07:44 Assessment and Plan Assessment and plan (1) Perirectal abscess: Status: Acute Assessment and plan: POD #1 s/p preirectal abscess I&D with packing Reguar diet Pain is currently well controlled Packing in place, will need to have this replaced later today Will order Home Health for wound care needs Leukocytosis is resolving Possible d/c home later today or tomorrow. Will need services for wound care Also will require out-patient follow up Subjective Subjective Interval history since last seen: Aly states he is feeling better this morning. He states he continues to have discomfort with rolling and bed mobility. Exam Const General: cooperative, healthy appearing and comfortable Orientation: alert and oriented x3 Resp Effort & Inspection: normal respiratory effort, no audible wheezes and no cough Objective Last Vital Signs Temp 37.3 C 10/15/22 07:29 Pulse 76 10/15/22 07:29 Resp 16 10/15/22 07:29 BP 143/88 H 10/15/22 07:29 Pulse Ox 96 10/15/22 07:29 Time Spent with Patient Time Spent with Patient: <25 minutes Time was spent: preparing to see the patient(eg.review tests) and care coordination
--- NOTE | 2022-10-15 08:53 | W.PM.DS.N ---
Date of service: 10/15/22 Time of Service: 08:53 DS: Diagnosis Discharge Diagnosis (1) Perirectal abscess: Status: Acute Asessment and Plan: Packing was removed today and new packing was placed. He was instructed to use hot shower 3 times a day for the next week to help facilitate drainage. He was instructed to avoid manual disimpaction and stimulation because it is causing trauma to this area. More aggressive laxatives and bowel regimen medications are recommended to loosen up his stools. Discharge Plan Disposition Patient Disposition: Home Condition: Good Discharge Details Reason For Visit: Perianal Abscess Admit Date/Time: 10/13/22 16:16 Admit Provider: Yarely Pradhan Attending Provider: Yarely Pradhan Primary Care Provider: Donte Padgett Hospital Course Hospital Course: 32-year-old man was admitted with a perirectal abscess. He was taken to the operating room and it was drained. The next day the packing was changed and he was discharged home on antibiotics. He was counseled to start taking a more aggressive bowel medication regimen and avoid manual stimulation and disimpaction which he does on a regular basis since it is causing perianal and rectal trauma. Home Meds and New Rx's Prescriptions: No Action (DME) Bard Coude Tip Catheter 1 EACH misc 1 ea Miscellaneous q 2-3 h Qty: 240 Patient Comments: pt used this am vardenafil 20 mg tablet 10 - 20 mg PO DAILY PRN (Reason: sexual activity) Qty: 6 3RF hydromorphone 8 mg tablet 8 - 16 mg PO Q8H PRN (Reason: Pain) Patient Comments: TAKE 1 (MODERATE PAIN) TO 2 (SEVERE PAIN) TABLETS BY MOUTH EVERY 8 HOURS NEEDED FOR PAIN baclofen 20 mg tablet 20 mg PO QID Patient Comments: TAKE ONE TABLET BY MOUTH FOUR TIMES A DAY gabapentin 400 mg capsule 800 mg PO TID Patient Comments: TAKE TWO CAPSULES BY MOUTH THREE TIMES A DAY Rx Instructions: taking BID buprenorphine HCl [Belbuca] 600 mcg film 600 mcg BUCCAL BID Patient Comments: PLACE ONE FILM INSIDE CHEEK TWICE A DAY Movantik 25 mg tablet 25 mg PO DAILY Patient Comments: TAKE 1 TABLET BY MOUTH ONCE DAILY naproxen sodium [Aleve] 220 mg Capsule 220 mg PO BID PRN Discharge Instructions Additional Instructions: You are encouraged to shower 3 times a day. Administer very hot water to the area between your legs and around your anal region for 10-15 minutes at a time as tolerated. Remove the packing tomorrow ( the ). You can remove it in the shower. More packing does not need to be placed in it. You can otherwise eat normal and resume your regular activities and medications. Activity:: Activity as Tolerated Equipment/Supplies:: No Equipment Needed Diet:: As Tolerated DS: Summary Time Spent with Patient providing and/or coordinating discharge services: Greater than 30 minutes Status at Discharge Functional status at discharge: wheelchair bound Overall status at discharge: patient is back to baseline Mental Status: mental status grossly normal Speech and Movement: speech and movement normal Mood: congruent mood Affect: normal affect Exam Narrative Exam Narrative: Nontoxic, comfortable and interactive Neuro: Alert and oriented x3 Psych: Appropriate mood and affect, good insight and understanding into his conditions Perianal area: Induration is somewhat less, there is no foul odor, there is no erythema. I pulled out the packing and placed new packing. Psych Mental Status: mental status grossly normal Speech and Movement: speech and movement normal Mood: congruent mood Affect: normal affect DS: Data Vitals/I&O Vitals and I&O: Vital Signs Temperature 99.1 F 10/15/22 07:29 Temperature Source Tympanic 10/15/22 07:29 Pulse 76 10/15/22 07:29 Pulse Rhythm Regular 10/15/22 01:45 Respiratory Rate 16 10/15/22 07:29 Respiratory Effort Normal, Non-Labored 10/15/22 01:45 Respiratory Depth Normal 10/15/22 01:45 Respiratory Pattern Normal 10/15/22 01:45 Blood Pressure 143/88 H 10/15/22 07:29 Blood Pressure Position Sitting 10/13/22 12:39 Pulse Oximetry 96 10/15/22 07:29 Oxygen Delivery Method Room Air 10/15/22 07:29 Oxygen Flow Rate 0 10/15/22 07:29 Pain Level 0 10/15/22 07:29 Intake & Output 10/14/22 10/14/22 10/15/22 11:59 23:59 11:59 Intake Total 410 / 2300.5 1890.5 / 2300.5 Output Total 4000 / 5350 1350 / 5350 2400 / 2400 Balance -3590 / -3049.5 540.5 / -3049.5 -2400 / -2400 Weight 216 lb 14.958 oz Intake: IV 410 / 2300.5 1890.5 / 2300.5 Output: Urine 4000 / 5350 1350 / 5350 2400 / 2400 Other: Urine Color Yellow Yellow Yellow Urine Appearance Clear Clear Clear Emesis Description None Data Completed and Pending Labs on day of discharge: 10/14/22 12:30 Perirectal Abscess Culture - Pending 10/14/22 12:30 Perirectal Anaerobic Culture - Pending Preliminary micro results at discharge 10/13/22 15:54 Blood Culture - Preliminary Blood NO GROWTH 24 HOURS 10/13/22 14:00 Blood Culture - Preliminary Blood NO GROWTH 24 HOURS 10/14/22 12:30 Abscess Culture - Pending Perirectal 10/14/22 12:30 Anaerobic Culture - Pending Perirectal PFSH All Active Problems Perirectal abscess (Acute) Rectal prolapse (Acute) Hemorrhoids (Acute) Erectile dysfunction (Acute) Quadriplegia following spinal cord injury (Chronic) Tobacco abuse (Chronic) a. 1 PPD H/O surgical procedure (Chronic) a. 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 Father No problems noted. Sister No problems noted. Brother No problems noted. Grandfather Personal history of malignant neoplasm LUNG Grandfather No problems noted. Grandmother No problems noted. Grandmother No problems noted. Social History Smoking/Tobacco Use Status: Current every day Tobacco Type: cigarettes Smoking packs per day: 1 Smoking cigarettes per day: 20.0 Smoking risk assessment performed?: Yes Alcohol Intake: current Alcohol Intake frequency: holidays/special occasions only Drug use: Daily Substance use type: marijuana Details: Pt smokes marijuana HS. Marijuana: t-1 , bowl. Alcohol:t-10 Current gender identity: male Do you feel safe at home: Yes Do you feel safe in your relationship?: Yes Additional Social history: Weighed pt with carol pt. used wheelchair Time Spent with Patient Time Spent with Patient: <45 minutes Time was spent: counseling the patient and care coordination
[2022-10-15] MEDS: Gabapentin 400 MG CAP 800 MG PO ×2 (09:10→12:32)
[2022-10-15] MEDS: Acetaminophen 325 MG TAB 650 MG PO (09:11)
[2022-10-15] MEDS: Baclofen 10 MG TAB 20 MG PO ×2 (09:11→12:32)
--- NOTE | 2022-10-15 11:22 | PDOC.HHF2F_ITS ---
Home Health Referral Home Health Orders Clinical synopsis of why skilled professionals are needed: Open perianal wound requiring daily dressing changes Medical diagnosis necessitation home health referral: Perianal abscess Registered Nurse: Check all that apply Assess for exacerbation of medical condition, instruct patient/caregivers on signs and symptoms to report for early detection: Ordered Assess wound for signs and symptoms of infection, instruct on wound care and/or provide skilled wound care consisting of: Daily dressing changes and assessment Home Bound Status Requires the aid of supportive device (check all that apply): Wheelchair Encounter Date and Reason: I certify that a FTF encounter for this patient was performed on October 15, 2022 and that such encounter was related to the primary reason the patient requires home health services. The encounter was conducted in the following manner: * By me as the certifying physician, CORRESPONDENCE DICTATOR, PA or * By an inpatient physician, CORRESPONDENCE DICTATOR or PA during an inpatient stay who communicated findings to me, Certification And Authentication I certify that I composed the above information based on my clinical judgment relating to this patient's medical condition and, if applicable, clinical findings communicated to me by the NPP or inpatient physician who performed the FTF encounter. Name of Provider that will be monitoring home health services: Juan Diego Sanders
--- NOTE | 2022-10-15 12:25 | PDOC.CMDIS ---
- If Service Date Differs Date of service: 10/15/22 Time of Service: 12:26 LACE Index Scoring Tool - Questions: Length of Stay (in days): 2 Acuity (Admit via E.D.?): Yes E.D. Visits: 1 - Answers: Total Score: 6 Risk of Readmission: Low Risk Care Management Discharge Reason for Hospitalization: Perianal abscess Discharge Plan: Aly will return home today with new orders for HH RN for wound care. His father will drive him home via private vehicle. He will follow up with his PCP and discharge plan of care. He is happy to be going home. Patient/Family Education Needs: Review discharge instructions and limitations, discussion of self care needs including ask me three. Services Needed at Discharge: Home Health Care Services (HH RN)
[2022-10-15] MEDS: HYDROmorphone 4 MG TAB 8 MG PO (12:42)
== END 2022-10-15 14:21 | disposition home or self-care (01) | DRG 345 ==
LOC: ER 12:44 → MS 10-14 07:14
PROVIDERS: Student in an Organized Health Care Education/Training Program; Admitting Provider Surgery; Emergency Provider Physician Assistant; PCP Family Medicine; Visit Provider Surgery
PROC: 0D9P0ZZ Drainage of Rectum, Open Approach (ICD-10-PCS; CPT 46040; principal; 2022-10-14 10:15)
DX: K61.1 Rectal abscess (principal); G82.22 Paraplegia, incomplete; N39.0 Urinary tract infection, site not specified; S14.105S Unspecified injury at C5 level of cervical spinal cord, sequela; X58.XXXS Exposure to other specified factors, sequela; K64.9 Unspecified hemorrhoids; F17.210 Nicotine dependence, cigarettes, uncomplicated; K20.90 Esophagitis, unspecified without bleeding; R53.82 Chronic fatigue, unspecified; J45.909 Unspecified asthma, uncomplicated; G43.909 Migraine, unspecified, not intractable, without status migrainosus; F41.9 Anxiety disorder, unspecified; F32.A Depression, unspecified; K21.9 Gastro-esophageal reflux disease without esophagitis; D50.8 Other iron deficiency anemias; F12.90 Cannabis use, unspecified, uncomplicated
CPT/HCPCS: 46040; 36415; 51702; 80053; 87040; 87077; 87635; 96365; 96366; 96367; 96368; 96372; 96375; 99215; 99223; 99232; 99285; 74177; 81003; 81015; 83605; 83615; 83735; 85025; 87070; 87075; 87086; 87186; 87205; J0131; J0744; J1170; J2250; J2270; J2405

== ENCOUNTER → 2022-10-22 09:17 | Outpatient (BNVA) | payer MEDICARE, MEDICAID, SELFPAY | PROVIDERS: PCP Family Medicine; Referring Provider Family Medicine; Visit Provider Surgery | DX: K62.3 Rectal prolapse (principal); L05.91 Pilonidal cyst without abscess ==

== ENCOUNTER → 2022-10-28 15:13 | Outpatient (BNVA) | payer MEDICARE, MEDICAID, SELFPAY | PROVIDERS: PCP Family Medicine; Referring Provider Family Medicine; Visit Provider Surgery | DX: L05.91 Pilonidal cyst without abscess (principal); K64.8 Other hemorrhoids; K62.3 Rectal prolapse ==

== ENCOUNTER → 2022-12-03 14:29 | Outpatient (BNVA) | payer MEDICARE, MEDICAID, SELFPAY | PROVIDERS: PCP Family Medicine; Referring Provider Family Medicine; Visit Provider Surgery | DX: Z01.818 Encounter for other preprocedural examination (principal); K62.3 Rectal prolapse; G82.50 Quadriplegia, unspecified ==

== ENCOUNTER 2022-12-19 12:52 | Inpatient (IN) | payer MEDICARE, MEDICAID, SELFPAY ==
[2022-12-19] VITALS (15 sets, daily range): BP systolic 95–184; BP diastolic 69–113; PULSE 59–85; RESP 8–18; TEMP 36–37.1; O2SAT 95–100; BMI 26.4
[2022-12-19] MEDS: Celecoxib 200 MG CAP PO (07:37)
[2022-12-19] MEDS: Acetaminophen 500 MG TAB 1000 MG PO (07:38)
[2022-12-19] MEDS: Gabapentin 300 MG CAP 600 MG PO (07:42)
--- NOTE | 2022-12-19 07:42 | W.ANESPRE ---
General Info Date of Service Date Performed: 12/19/22 Height: 6 ft 4 in Weight: 98.4 kg Body Mass Index (BMI): 26.4 Surgical Procedure: Operation Date: 12/19/22 07:50 Proposed Procedure Side Surgeon p Colostomy Diverting & Rectopexy Juan Diego Sanders MD Meds Allergies and Home Medications Allergies Allergy/AdvReac Type Severity Reaction Status Date / Time No Known Allergies Allergy Verified 12/19/22 07:17 Home Medication Medication Instructions Recorded naproxen sodium 220 mg capsule 220 mg PO BID PRN 02/16/19 (Aleve) baclofen 20 mg tablet 20 mg PO QID 10/13/22 buprenorphine HCl 600 mcg buccal 600 mcg buccal BID 10/13/22 film (Belbuca) gabapentin 400 mg capsule 800 mg PO TID 10/13/22 hydromorphone 8 mg tablet 8 - 16 mg PO Q8H PRN Pain 10/13/22 bisacodyl 5 mg tablet,delayed 5 mg PO ONCE colonscopy bowel prep 12/03/22 release (Dulcolax (bisacodyl)) #8 tabs catheter 14 Fr (Bard Coude Tip 12/03/22 Catheter) docusate sodium 100 mg capsule 100 mg PO TID PRN 12/03/22 (Colace) magnesium hydroxide 400 mg/5 mL 5 ml PO DAILY PRN 12/03/22 oral suspension (Milk of Magnesia) metronidazole 500 mg tablet 500 mg PO .COMPLEX #8 tabs 12/03/22 neomycin 500 mg tablet 500 mg PO .COMPLEX #8 tabs 12/03/22 ondansetron HCl 8 mg tablet 8 mg PO Q12H #3 tabs 12/03/22 Current Visit Medications: Current Medications Generic Name Dose Route Start Last Admin Trade Name Freq PRN Reason Stop Dose Admin Acetaminophen 1,000 mg 12/19/22 06:00 Acetaminophen 500 Mg Tab PO 12/19/22 16:00 PREOP YARELI Celecoxib 200 mg 12/19/22 06:00 Celecoxib 200 Mg Cap PO 12/19/22 16:00 PREOP YARELI Gabapentin 600 mg 12/19/22 06:00 Gabapentin 300 Mg Cap PO 12/19/22 16:00 PREOP YARELI Ringer's Solution 1,000 mls @ 80 mls/hr 12/19/22 06:00 IV 01/17/23 23:59 INFUSION YARELI IV Miscellaneous Supplies 1 each 12/19/22 06:00 Iv Access IV 01/17/23 23:59 DIRECTED YARELI Sodium Chloride 0 ml 12/19/22 06:00 Normal Saline Flush 10 Ml Syr IV 01/17/23 23:59 PRN PRN Sodium Chloride 0 ml 12/19/22 06:00 Normal Saline 10 Ml Vial IJ 01/17/23 23:59 DIRECTED PRN Sterile Water 0 ml 12/19/22 06:00 Water,Injection,Sterile 10 Ml Vial IJ 01/17/23 23:59 DIRECTED PRN PFSH Active Problems Active Problems: Problem Status Onset Code Infected pilonidal cyst L05.91 Rectal prolapse K62.3 Hemorrhoids K64.9 Erectile dysfunction N52.9 Quadriplegia following spinal cord injury G82.50 Tobacco abuse Z72.0 H/O surgical procedure Z98.89 Anemia D64.9 Sepsis A41.9 Internal bleeding hemorrhoids K64.8 Esophagitis K20.9 Fatigue R53.83 Status post appendectomy Z90.49 Reactive airway disease J45.909 Migraine G43.909 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 06/16/14 G82.54 Depression F32.9 Closed fracture of fifth metacarpal bone 05/12/09 S62.308A Anxiety F41.9 Paralysis G83.9 Medical History Medical History Chronic pain Left lower abdomen GERD (gastroesophageal reflux disease) Iron deficiency anemia due to dietary causes Quadriplegia due to spinal cord lesion between C5 to C7 Incomplete- has feeling in the rectal area and deep sensation in his legs Surgical History Surgical History Appendectomy (~09/1996) History of spinal fusion S/P hemorrhoidectomy (~03/2018) hemorrhoid banding Tobacco Smoking/Tobacco Use Status: Current every day Tobacco Type: cigarettes Smoking packs per day: 1 Alcohol Alcohol Intake: current Alcohol intake frequency: holidays/special occasions only Substance Use Substance use: Daily Substance use type: marijuana Vital Signs and Lab Results Vital Signs Most Recent Vital Signs in EMR: Most Recent Vital Signs Temp Pulse Resp BP Pulse Ox 36.5 C 82 18 95/69 L 97 12/19/22 07:07 12/19/22 07:07 12/19/22 07:07 12/19/22 07:07 12/19/22 07:07 Lab Results Blood Type / Crossmatch: No Data to Display Complete Blood Count: No Data to Display Complete Metabolic Panel: No Data to Display Liver Function Panel: No Data to Display Coagulation Panel: No Data to Display Cardiac Panel: No Data to Display Arterial Blood Gas: No Data to Display Venous Blood Gas: No Data to Display Pancreas Panel: No Data to Display Thyroid Panel: No Data to Display Infectious Disease: No Data to Display Blood Cultures: No Data to Display Toxicology Panel: No Data to Display Anesthesia Assessment and Plan Anesthesia History Personal History: No History of Anesthesia Complications Family History: No Family History of Anesthesia Complications Exercise Tolerance Exercise Tolerance: Other (Incomplete spinal cord injury, resulting tetraplegia) Cardiac & Pulmonary Exam Cardiac Exam: Normal S1/S2 Heart Sounds Pulmonary Exam: Clear Bilateral Breath Sounds Implantable Cardiac Device Does patient have a Pacemaker or an ICD?: No Airway Exam Known Difficult Airway: No Mallampati Class: 2 Mouth Opening: Normal (> 3cm) Thyromental Distance: Greater than 3 cm Neck Range of Motion: Full ROM Neck Circumference: Normal Teeth Condition: Normal Dentition ASA Classification ASA Score: ASA 2 Emergency Case?: No NPO Status NPO Status: NPO Clears >2 hours, Solids >8 hours Anesthesia Plan Resuscitation Status: Full Code Anesthesia Technique: General Anesthesia Airway Planned: Endotracheal Tube Monitors Used: Standard Monitors
[2022-12-19] MEDS: Lactated Ringers 1,000 ML 80 ML IV ×2 (07:50→10:18)
--- NOTE | 2022-12-19 11:59 | BOWEL_PTH ---
PATIENT: Aly De La Torre LOC: U#:[id number] AGE/SX: 32/M ROOM: [id number] RE12/19/[address]: Juan Diego Sanders MD : 1990 BED: A DIS: 12/23/2022 SPEC #: [id number] RECD: 12/19/22 13:29 STATUS: GRACIELA REQ #: [id number] CARLITA: 12/19/22 11:[address]: Juan Diego Sanders DEPT: Surgical Specimen RECD BY: Tiffani Godoy ENTERED: 12/19/22 13:31 SP TYPE: Bowel OTHR DR: Donte Padgett MD Tissues: 1 - BOWEL RESECTION(OTHER) Procedures: GROSS AND MICRO LEVEL 5 Comments: [id number]
[2022-12-19] MEDS: fentaNYL 100 MCG/2 ML VIAL IVP ×4 (12:50→14:21)
--- NOTE | 2022-12-19 13:01 | ROE_ITS ---
Date of service: 12/19/22 Time of Service: 13:01 Operative Note Operative Note DATE OF PROCEDURE: 12/19/22 PRE-OP DIAGNOSIS: Rectal prolapse with history of perineal abscess from chronic constipation associated with spinal cord injury POST-OP DIAGNOSIS: same PROCEDURE: Laparoscopic creation of descending end colostomy with suture rectopexy SURGEON: Juan Diego Sanders ASSISTING SURGEON: Yarely Pradhan PROJECT ARCHITECT: Alycia Ramirez ANESTHESIA TYPE: Local By Surgeon and General LMA/ETT Refer to Anesthesia Record ESTIMATED BLOOD LOSS: 100 COMPLICATIONS: None Patient was transported to: PACU Patient's condition: stable Procedure Description: After the induction of general endotracheal anesthesia, but he was placed in the lithotomy position. Great care was taken to pad all of the points of contact. Next, I performed a digital anorectal exam. There were no masses, or concerning lesions. Next, using cystoscopy tubing, we gently irrigated the rectal vault with Betadine tinted saline. This was allowed to drain freely. Next, I prepped and draped the anterior abdominal wall pelvis in the usual fashion. I started with a supraumbilical midline incision and dissected down to the fascia. It was grasped with Chloe clamps and elevated. I incised it in the middle. A 12 mm Crump port was fixed in this position with Vicryl stitches at the fascial level the peritoneum was then insufflated and a 5 mm 30 degree scope was gently inserted. The underlying viscera were carefully examined. There was no evidence of trauma from entry into the peritoneum. Next, body was placed in the Trendelenburg position with the right side down. I placed a 5 mm port in the suprapubic position, as well as a 5 mm port in the right lower quadrant. Next, I identified the distal portion of the descending colon, where it became the sigmoid colon. The lateral attachments were divided with the LigaSure device, and the sigmoid colon was completely mobilized to the midline, as well as the distal portion of the descending colon. Great care was taken to stay up out of the retroperitoneum, and avoid the iliacs in the area of the left ureter. Once this dissection was completed turned my attention to the lower pelvis. Sigmoid was retracted cephalad, and the confluence of the tenia towards the rectum were identified. Grossly, everything looked normal. There was no obvious pathology in the pelvis the rectum was gently pulled towards the cephalad position to identify an appropriate place for division and rectopexy. Once this was completed, I created a small defect in the mesenteric portion of the distal sigmoid colon at the rectosigmoid junction. This dissection was done with the LigaSure. Once this was complete, I upsized the suprapubic port to a 12 mm port, and an endoscopic stapler was used to divide the rectosigmoid junction. With this complete, the dissection of the mesentery was completed, and the mesentery was divided with sequential fires of the LigaSure were up to an appropriate portion of the descending colon. During this mobilization, 5 mm port was added to the left mid abdomen and the target area of the colostomy site. This was used for retraction. Once the mobilization was completed, the 5 mm port was removed, and the site was upsized to accommodate the end colostomy. A small oval of skin was excised, and the subcutaneous fat was also . The dissection was carried down to the rectus which was incised in a cruciate fashion. The underlying rectus abdominis muscle was split, and the posterior rectus sheath was identified. A retrorectus plane was developed, for implantation of a peristomal mesh. With this dissection complete, polypropylene mesh was trimmed to the appropriate size and shape, and lay down in the retrorectus position after this, the posterior rectus sheath was opened, and an Mars wound retractor was delivered through the stoma site. The end portion of the colostomy was then delivered through the wound protector, and the wound protector was removed. Laparoscope was reinserted. We identified the distal rectal stump. I pulled it up to the anterior abdominal wall towards the cephalad location to lengthen, and straighten the rectum. Once this was completed, suture rectopexy was completed to the anterior abdominal wall, slightly to the patient's left of midline. This allowed appropriate positioning of the rectum, and favorable anatomy for future proctoscopy if needed. Once this was completed, the mesentery of the descending colon was examined to ensure that the colostomy was not twisted. It appeared appropriately oriented. The laparoscopic ports were removed under the vision of the laparoscope. There was no bleeding. The wound retractor was removed, and end colostomy was trimmed and matured at the skin level. Simultaneously, fascia of the umbilical and suprapubic port sites was closed with interrupted Vicryl stitches. The skin and subcutaneous tissues were irrigated, and the skin was closed with subcuticular sutures as well. Bandages were applied. The colostomy bag was applied. The patient was allowed awaken from anesthesia and transferred to the recovery unit.
[2022-12-19] MEDS: HYDROmorphone 2 MG/ML SYR IVP ×4 (13:06→13:36)
[2022-12-19] MEDS: LORazepam 2 MG/ML VIAL (13:20)
[2022-12-19] MEDS: LORazepam 2 MG/ML VIAL 1 MG IVP (13:20)
[2022-12-19] MEDS: Lactated Ringers 1,000 ML 75 ML IV (14:00)
--- NOTE | 2022-12-19 14:38 | W.ANESPOSTOP ---
Postoperative Evaluation Date, Time and Location Date Performed: 12/19/22 Time Performed: 14:38 Patient Location: PACU Vital Signs Most Recent Imported Vital Signs: Most Recent Vital Signs Temp Pulse Resp BP Pulse Ox 36.5 C 59 L 10 L 148/94 H 96 12/19/22 14:25 12/19/22 14:25 12/19/22 14:25 12/19/22 14:25 12/19/22 14:25 Pain Score Most Recent Pain Score: Most Recent Pain Score Pain Level 10 12/19/22 13:40 Assessment Mental Status: Awake (Alert & Oriented to Patient Baseline) Airway and Respiratory Function: Patent airway with normal (patient baseline) respiratory exam Cardiovascular Function: Hemodynamically Stable Hydration Status: Adequately Hydrated Nausea & Vomiting: No Nausea or Vomiting Pain: Pain is tolerable per patient Peripheral Nerve Block: Patient did not receive a nerve block
[2022-12-19] MEDS: HYDROmorphone 2 MG/ML SYR 1 MG IVP ×3 (14:59→21:28)
[2022-12-19] MEDS: Enoxaparin 40 MG/0.4 ML SYR SC (15:48)
[2022-12-19] MEDS: Butalbital/Acetaminophen/Caffeine 50/325/40 TAB PO (15:49)
[2022-12-19] MEDS: Gabapentin 400 MG CAP 800 MG PO ×2 (15:49→19:09)
[2022-12-19] MEDS: Baclofen 10 MG TAB 20 MG PO ×2 (15:49→19:09)
[2022-12-19] MEDS: HYDROmorphone 4 MG TAB 8 MG PO (15:55)
[2022-12-19] MEDS: Methocarbamol 750 MG TAB PO (21:32)
[2022-12-19] MEDS: ACETAMINOPHEN 1,000 MG/100 ML BTL 400 MG IVPB (21:33)
[2022-12-19] MEDS: Ketorolac 15 MG/ML VIAL IVP (21:33)
[2022-12-20] MEDS: Ketorolac 15 MG/ML VIAL IVP ×4 (04:29→22:50)
[2022-12-20] MEDS: HYDROmorphone 4 MG TAB 8 MG PO ×4 (04:40→23:56)
[2022-12-20] MEDS: Normal Saline Flush 10 ML SYR IV ×2 (04:42→06:27)
[2022-12-20 04:43] VITALS: BP 115/73; PULSE 75; RESP 18; TEMP 37.4; O2SAT 97
[2022-12-20 06:13] VITALS: TEMP 36.7
[2022-12-20] MEDS: ACETAMINOPHEN 1,000 MG/100 ML BTL 400 MG IVPB ×3 (06:13→22:49)
[2022-12-20] MEDS: Methocarbamol 750 MG TAB PO (06:28)
[2022-12-20] MEDS: HYDROmorphone 2 MG/ML SYR 1 MG IVP ×7 (06:28→22:46)
[2022-12-20 06:39] LABS: Abs Immature Grans 0.01 10^3/uL (0.0-0.06); Absolute Basophil Count 0.01 10^3/uL (0.0-0.2); Absolute Eosinophil Count 0.07 10^3/uL (0.0-0.7); Absolute Lymphocyte Count 1.62 10^3/uL (1.2-3.4); Absolute Monocyte Count 0.65 10^3/uL (0.1-0.8); Absolute Neutrophil Count 4.22 10^3/uL (1.2-6.7); Basophils % 0.2; Eosinophils % 1.1; HCT 39.5 % (40.0-50.0); HGB 13.1 g/dL (13.5-17.5); Immature Grans % 0.2; Lymphocytes % 24.6; MCH 27.8 pg (27.0-33.0); MCHC 33.2 % (32.0-36.0); MCV 84 fL (80-95); MPV 10.2 fL (8.0-11.0); Monocytes % 9.9; Platelet Count 167 10^3/uL (130-400); RBC 4.71 10^6/uL (4.36-5.78); WBC 6.58 10^3/uL (4.4-10.8)
--- NOTE | 2022-12-20 07:40 | PDOC.CMIN ---
Date of service: 12/20/22 Time of Service: 07:40 Care Management Initial Assmt Initial Assessment REASON FOR HOSPITALIZATION:: Rectal Prolapse PREVIOUS FUNCTIONAL STATUS/SOCIAL/FAMILY SUPPORTS:: Aly lives independently in his [facility] apartment. Aly is Quadriplegic and wheelchair dependent. He has upper body movement and limitations with his mobility/dexterity of his upper extremities. He drives and owns an adaptive vehicle. Aly is independent for all activities. Aly has several friends and family members in the area that are willing to help him if needed and shares that he takes pride in his independence and doesn't prefer to rely on others. CURRENT FUNCTIONAL STATUS:: Aly was lying in bed visiting with his sister, when CM met with him. He is pleasant and engages easily in conversation. Per pt, he discussed adaptive colostomy supplies with Dr. Cota today and ordered samples through [employer]. His primary concern is his ability to manage the colostomy at home, due to limitations with hand dexterity. Aly shares that his sister and father are both willing to help, however he is eager to independently manage it himself. [facility] RN services will be ordered on discharge for colostomy support and supplies. ADVANCE DIRECTIVES:: Not on file. CM will offer forms. Has patient been provided with info about the portal/API?: Yes Did the patient sign up for the portal?: Yes (Prior to admission) CODE STATUS:: Full Code INSURANCE COVERAGE / FINANCIAL ISSUES:: Medicaid Medicare CURRENT HOME/COMMUNITY SERVICES/EQUIPMENT:: Aly has his own wheelchair. PRIMARY CARE PHYSICIAN:: Artem Hess [facility] POTENTIAL DISCHARGE NEEDS:: Follow up with Surgical and PCP [facility] RN Take home colostomy supplies PATIENT/FAMILY EDUCATION NEEDS:: Review discharge instructions and limitations, discussion of self care needs including ask me three. ANTICIPATED BARRIERS TO DISCHARGE:: None identified at this time. TRANSPORTATION:: Via private vehicle by family. PLAN:: Aly went to the OR on 12/19/22 for a colostomy. He is eager to return home once medically cleared per Surgical provider. New [facility] RN will be ordered for Ostomy support and supplies following discharge. His sister and father are willing to help him with his ostomy after discharge, but he'd rather be independent with it. His father will drive him home via private vehicle. He will follow up with his PCP, Surgical team and discharge plan of care. CM will continue to follow. PFSH All Active Problems Infected pilonidal cyst (Acute) Rectal prolapse (Acute) Hemorrhoids (Acute) Erectile dysfunction (Acute) Quadriplegia following spinal cord injury (Chronic) Tobacco abuse (Chronic) a. 1 PPD H/O surgical procedure (Chronic) a. 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 Father No problems noted. Sister No problems noted. Brother No problems noted. Grandfather Personal history of malignant neoplasm LUNG Grandfather No problems noted. Grandmother No problems noted. Grandmother No problems noted. Social History Smoking/Tobacco Use Status: Current every day Tobacco Type: cigarettes Smoking packs per day: 1 Smoking cigarettes per day: 20.0 Smoking risk assessment performed?: Yes Alcohol Intake: current Alcohol Intake frequency: holidays/special occasions only Drug use: Daily Substance use type: marijuana Current gender identity: male Do you feel safe at home: Yes Do you feel safe in your relationship?: Yes Additional Social history: Weighed pt with carol pt. used wheelchair Unable to assess eva, does do some transfer himself with the board he has with him at all times, but from to hospital bed willrequire some assistance
[2022-12-20] MEDS: Normal Saline Flush 10 ML SYR IVP ×4 (07:58→12:43)
[2022-12-20] MEDS: Baclofen 10 MG TAB 20 MG PO ×4 (08:00→20:38)
[2022-12-20] MEDS: Gabapentin 400 MG CAP 800 MG PO ×3 (08:01→20:38)
[2022-12-20 08:06] VITALS: BP 118/71; PULSE 82; RESP 247; O2SAT 99
[2022-12-20] MEDS: diazePAM 5 MG TAB PO ×4 (09:57→22:47)
--- NOTE | 2022-12-20 10:31 | NUR.NOTE ---
Nursing Note: Ostomy education: Colostomy stoma above skin line, dark/rosbud in color, scant amount of bloody drainage present, no gas at this time, positive bowel sounds, appliance in take, nurse reviewed when to seek immediate medical attention, ie darkening or black stoma, sudden change in output, sudden pain, nurse reviewed what to expect in the first post-op days, patient confirmed he has seen his stoma, however Patient experiencing severe pain, no addtional ostomy education at this time. Nurse updated team and provided on pain management concerns.
--- NOTE | 2022-12-20 12:05 | PGE_ITS ---
Date of Service Date of service: 12/20/22 Time of Service: 12:05 Assessment and Plan Assessment and plan (1) S/P colostomy: Status: Acute Assessment and plan: POD #1 pt doing well -ostomy training/teaching. Pt given web sites to [employer] and [facility]. We d/w pro's and cons of various bags. samples ordered. -pain control issues. Pt has pain from chronic muscle spasms from spinal cord injury. anti spasmodics and bentyl added. ?if pt would benefit from TAP blocks. 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 He is tolerating po's. He is passing gas, no stool. no nsauea. Pt is doing well. no headaches. No CP or SOB. no productive cough. no dysuria. no leg pain or swelling. He normally self-caths at home. He has a carlin in currently. No IVF. No abx we d/w osotmy care/styles of bags. He has very limited use of his hands. we d/w adaptive devices to aid in emptying pouch. Exam Narrative Exam Narrative: PHYSICAL EXAM GENERAL APPEARANCE: Alert, healthy appearance, oriented, x 3,? in no acute distress HYDRATION: Well hydrated HEAD, EYES, EARS, NECK, THROAT: Head is normocephalic, pupils equal, round, reactive to light and accommodation, ocular movement intact, sclera clear and no jaundice. ?Dentition intact. No sore throat.? No jaw pain. No thrush LUNGS: normal respiration/normal chest excursion. ?Clear to auscultation bilaterally. ?No wheeze. ?HEART: Regular rate and rhythm. no murmurs EXTREMITY: No edema or cyanosis.? no leg pain, redness, swelling.? contractures of LE and hands. ABDOMEN: soft and non-tender to palpation.? Normal bowel sounds.? ostomy shows venous congestion. pt is passing gas. Objective Last Vital Signs Temp 36.7 C 12/20/22 06:13 Pulse 82 12/20/22 08:06 Resp 247 H 12/20/22 08:06 BP 118/71 12/20/22 08:06 Pulse Ox 99 12/20/22 08:06 Laboratory Results - last 24 hr 12/20/22 06:20 WBC 6.58 RBC 4.71 Hgb 13.1 L Hct 39.5 L MCV 84 MCH 27.8 MCHC 33.2 RDW 14.0 Plt Count 167 MPV 10.2 Immature Gran % 0.2 Neutrophils % 64.0 Lymphocytes % 24.6 Monocytes % 9.9 Eosinophils % 1.1 Basophils % 0.2 Nucleated RBC % 0.0 Absolute Neutrophils 4.22 Absolute Lymphocytes 1.62 Absolute Monocytes 0.65 Absolute Eosinophils 0.07 Absolute Basophils 0.01 Time Spent with Patient Time Spent with Patient: >50 minutes Time was spent: preparing to see the patient(eg.review tests), obtaining and/or reviewing separately otained hiistory, referring, communicating with other health acute care nursing assistant, indepentently interpreting results and counseling the patient
[2022-12-20] MEDS: Normal Saline 500 ML 30 ML IV (13:44)
[2022-12-20] MEDS: Psyllium PKT 1 EACH PO (14:47)
[2022-12-20] MEDS: Enoxaparin 40 MG/0.4 ML SYR SC (14:47)
[2022-12-20 15:21] VITALS: BP 103/62; PULSE 60; RESP 18; TEMP 36.5; O2SAT 98
[2022-12-20] MEDS: Dicyclomine 10 MG CAP PO ×2 (16:34→20:38)
--- NOTE | 2022-12-20 17:33 | W.ANESNERVE ---
Nerve Block Single Injection Procedure Date and Time Date Performed: 12/20/22 Procedure Start: 17:27 Location Where Procedure Performed Procedure Location: Med/Surg (rm 216) Reason Performed: Postoperative Analgesia Requesting Provider: Nicolle Cota Timeout Performed Timeout Performed: Yes Monitoring Used ECG, Blood Pressure and SpO2 Sterility Sterility: Hand Hygiene, Surgical Cap, Surgical Mask, Sterile Gloves, Eye Protection and Chlorhexidine Sedation Given During Procedure Sedation Given (Indicate Dose Given): No Sedation given Patient Mental Status Patient Mental Status: Awake Nerve Block 1st Nerve Block: Laterality: Bilateral Block Type: TAP Bilateral Ultrasound Image Saved?: Yes Needle / Catheter Used: 100mm SonoPlex II Local Anesthetic Bolus (Indicate Dose Given): Lidocaine used for local infiltration of skin, Injected in 3-5ml increments after negative blood aspiration, Exparel Dose:: 20cc/266mg and Bupivacaine 0.25% with Epinephrine (1:200,000) Dose:: 30cc/75mg Additives (Indicate Dose Given): None Ultrasound: Sterile probe cover and gel used Nerve Stimulator: Not Used Paresthesia: None Procedure Tolerated: No Complications Procedure Outcome: Successful Performed By: Efraín Carrillo
[2022-12-20] MEDS: tiZANidine 4 MG TABLET PO (20:38)
[2022-12-21] MEDS: diazePAM 5 MG TAB PO ×6 (02:44→22:30)
[2022-12-21] MEDS: HYDROmorphone 2 MG/ML SYR 1 MG IVP ×9 (02:45→23:59)
[2022-12-21] MEDS: HYDROmorphone 4 MG TAB 8 MG PO ×4 (04:41→22:30)
[2022-12-21] MEDS: Ketorolac 15 MG/ML VIAL IVP ×4 (04:42→22:28)
[2022-12-21] MEDS: tiZANidine 4 MG TABLET PO ×3 (04:42→19:29)
[2022-12-21] MEDS: ACETAMINOPHEN 1,000 MG/100 ML BTL 400 MG IVPB ×3 (06:33→22:30)
[2022-12-21] MEDS: Gabapentin 400 MG CAP 800 MG PO ×2 (07:20→14:16)
[2022-12-21] MEDS: Psyllium PKT 1 EACH PO (07:20)
[2022-12-21] MEDS: Baclofen 10 MG TAB 20 MG PO ×4 (07:21→19:29)
[2022-12-21] MEDS: Dicyclomine 10 MG CAP PO ×4 (07:22→19:29)
[2022-12-21 07:23] VITALS: BP 120/72; PULSE 91; RESP 18; TEMP 36.5; O2SAT 95
[2022-12-21] MEDS: Normal Saline Flush 10 ML SYR IVP ×2 (07:56→15:19)
[2022-12-21] MEDS: Docusate Sodium 100 MG CAP PO ×2 (10:47→22:36)
--- NOTE | 2022-12-21 12:00 | W.PM.PROGNOT ---
Date of Service Date of service: 12/21/22 Time of Service: 12:00 Assessment and Plan Assessment and plan (1) S/P colostomy: Status: Acute Assessment and plan: POD#2 s/p laprascopic rectal pexy and end colostomy creation. tolerating po's. Pain slightly better today increase gabapentin for pain control ostomy training w/ pt change ostomy bag in am samples ordered. 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 no headaches. No CP or SOB. no productive cough. no dysuria. no leg pain or swelling. Pain is better today. I think the spasms he was experiencing yesterday were due to gas pains. He is having output from the stoma today and tolerating po's. Exam Narrative Exam Narrative: PHYSICAL EXAM GENERAL APPEARANCE: Alert, healthy appearance, oriented, x 3,? in no acute distress HYDRATION: Well hydrated HEAD, EYES, EARS, NECK, THROAT: Head is normocephalic, pupils equal, round, reactive to light and accommodation, ocular movement intact, sclera clear and no jaundice. ?Dentition intact. No sore throat.? No jaw pain. No thrush NECK: no lymphadenopathy.? Trachea midline.? Neck supple.? No JVD LUNGS: normal respiration/normal chest excursion. ?Clear to auscultation bilaterally. ?No wheeze. ?HEART: Regular rate and rhythm. no murmurs EXTREMITY: No edema or cyanosis.? no , redness, swelling.? ABDOMEN: inscisions are c/d/i.? Normal bowel sounds.? Stoma is pink/productive/patent. +output Objective Last Vital Signs Temp 36.5 C 12/21/22 07:23 Pulse 91 H 12/21/22 07:23 Resp 18 12/21/22 07:23 BP 120/72 12/21/22 07:23 Pulse Ox 95 12/21/22 07:23 Time Spent with Patient Time Spent with Patient: >50 minutes Time was spent: preparing to see the patient(eg.review tests), obtaining and/or reviewing separately otained hiistory, counseling the patient and care coordination
[2022-12-21] MEDS: Enoxaparin 40 MG/0.4 ML SYR SC (14:15)
[2022-12-21] MEDS: Normal Saline 500 ML 30 ML IV (14:25)
[2022-12-21 14:53] VITALS: BP 121/61; PULSE 64; RESP 18; TEMP 36.5; O2SAT 98
[2022-12-21] MEDS: Simethicone 80 MG CHEW PO (21:24)
[2022-12-21] MEDS: Gabapentin 400 MG CAP 1000 MG PO (22:28)
[2022-12-21 23:04] VITALS: BP 135/84; PULSE 45; RESP 16; TEMP 36; O2SAT 98
[2022-12-22] MEDS: HYDROmorphone 2 MG/ML SYR 1 MG IVP ×6 (02:36→07:36)
[2022-12-22] MEDS: HYDROmorphone 4 MG TAB 8 MG PO ×3 (02:36→11:32)
[2022-12-22] MEDS: diazePAM 5 MG TAB PO ×6 (02:37→21:45)
[2022-12-22] MEDS: Simethicone 80 MG CHEW PO ×2 (02:53→22:43)
[2022-12-22] MEDS: Ketorolac 15 MG/ML VIAL IVP ×2 (03:34→10:12)
[2022-12-22] MEDS: tiZANidine 4 MG TABLET PO ×3 (03:35→20:13)
[2022-12-22] MEDS: ACETAMINOPHEN 1,000 MG/100 ML BTL 400 MG IVPB (06:05)
--- NOTE | 2022-12-22 06:15 | DI.RAD_ITS ---
Exam(s) XR ABDOMEN FLAT UPRIGHT EXAM: 2D digital imaging was performed. CLINICAL HISTORY: Uncontrolled pain. COMPARISON: CT CT ABDOMEN PELVIS W from 10/13/2022 TECHNIQUE: Supine and uprightSupine and Lateral views of the abdomen were performed. FINDINGS: BOWEL GAS PATTERN: Nondistended. Moderate stool. Free air noted beneath the diaphragm on upright im ages. CALCIFICATIONS: No urinary tract calcifications. OSSEOUS STRUCTURES: Degenerative changes of the hips. Visualized portions of chest: Unremarkable. IMPRESSION: 1. Nonobstructive bowel gas pattern. 2. No radiopaque calculi. 3. Free air noted beneath the diaphragm. DATA REPOSITORY: RADIATION DOSE DELIVERED:
[2022-12-22 06:51] LABS: Abs Immature Grans 0.01 10^3/uL (0.0-0.06); Absolute Basophil Count 0.02 10^3/uL (0.0-0.2); Absolute Eosinophil Count 0.13 10^3/uL (0.0-0.7); Absolute Lymphocyte Count 1.72 10^3/uL (1.2-3.4); Absolute Monocyte Count 0.49 10^3/uL (0.1-0.8); Absolute Neutrophil Count 3.15 10^3/uL (1.2-6.7); Basophils % 0.4; Eosinophils % 2.4; HCT 39.9 % (40.0-50.0); HGB 13.4 g/dL (13.5-17.5); Immature Grans % 0.2; Lymphocytes % 31.2; MCH 28.2 pg (27.0-33.0); MCHC 33.6 % (32.0-36.0); MCV 84 fL (80-95); MPV 10.4 fL (8.0-11.0); Monocytes % 8.9; Neutrophils % 56.9; Platelet Count 145 10^3/uL (130-400); RBC 4.76 10^6/uL (4.36-5.78); RDW 13.6 % (11.8-14.1); RDW-SD 42.2 fL; WBC 5.52 10^3/uL (4.4-10.8)
[2022-12-22] MEDS: Psyllium PKT 1 EACH PO (07:41)
[2022-12-22] MEDS: Dicyclomine 10 MG CAP PO ×4 (07:42→20:13)
[2022-12-22] MEDS: Baclofen 10 MG TAB 20 MG PO ×4 (07:42→20:12)
--- NOTE | 2022-12-22 08:22 | PDOC.HHF2F_ITS ---
Home Health Referral Home Health Orders Clinical synopsis of why skilled professionals are needed: new colostomy in paraplegic w/ limited use of hands Medical diagnosis necessitation home health referral: paraplegic Registered Nurse: Check all that apply Instruct on ostomy care: Ordered Assess for exacerbation of medical condition, instruct patient/caregivers on signs and symptoms to report for early detection: Ordered Assess wound for signs and symptoms of infection, instruct on wound care and/or provide skilled wound care consisting of: s/p surgery Home Bound Status Requires the aid of supportive device (check all that apply): Wheelchair Use of Special Transportation (Describe transportation and medical necessity): paraplegic/wheelchair bound Patient has a condition such that leaving home is medically contraindicated (Describe): recent surgery Describe why leaving home would require a considerable and taxing effort: Side effects from pain medication (sedation/drowsiness) and Requires alternative accommodations: Encounter Date and Reason: I certify that a FTF encounter for this patient was performed on December 22, 2022 and that such encounter was related to the primary reason the patient requires home health services. The encounter was conducted in the following manner: * By me as the certifying physician, WEIGHT LOSS SALES CONSULTANT, PA or * By an inpatient physician, WEIGHT LOSS SALES CONSULTANT or PA during an inpatient stay who communicated findings to me, Certification And Authentication I certify that I composed the above information based on my clinical judgment relating to this patient's medical condition and, if applicable, clinical findings communicated to me by the NPP or inpatient physician who performed the FTF encounter. Name of Provider that will be monitoring home health services: Yarely Pradhan
--- NOTE | 2022-12-22 08:38 | DI.VRAD_ITS ---
PROCEDURE INFORMATION: Exam: XR Abdomen Exam date and time: 12/22/2022 7:02 AM Age: 32 years old Clinical indication: Abdominal pain; Generalized; Patient HX: Rectal prolapse - surgery TECHNIQUE: Imaging protocol: Radiologic exam of the abdomen. Views: 2 Views. Upright and supine views. COMPARISON: No relevant prior studies are available for comparison. FINDINGS: Gastrointestinal tract: Gas and fluid in the stomach. Gas in the ascending and transverse colon. No evidence for obstruction. Intraperitoneal space: There is pneumoperitoneum consistent with recent surgery. Bones/joints: Unremarkable for age. IMPRESSION: 1. Nonobstructive bowel gas pattern. 2. Pneumoperitoneum. Patient is reportedly status post recent abdominal surgery. 3. THIS REPORT CONTAINS FINDINGS THAT MAY BE CRITICAL TO PATIENT CARE. The findings were verbally communicated via telephone conference with Nicolle Cota at 8:37 AM EDT on 12/22/2022. The findings were acknowledged and understood. Dictated and Authenticated by: Mari Chambers MD. Ordering:BRYCE Valverde MD
[2022-12-22] MEDS: Gabapentin 600 MG TAB PO ×3 (08:44→20:12)
[2022-12-22] MEDS: Gabapentin 400 MG CAP PO ×3 (08:44→20:12)
[2022-12-22] MEDS: Normal Saline Flush 10 ML SYR IVP (10:12)
--- NOTE | 2022-12-22 10:34 | OT.INIE ---
Occupational Therapy Notes Inpatient Occupational Therapy Evaluation Date: 12/22/22 Referring Doctor:Dr. Pradhan OT Orders: Urgent Precautions: Full PATIENT PROFILE/ADMITTING DIAGNOSIS: Pt is a 32 year old male who was admitted to [facility] after a Laparoscopic creation of descending end colostomy with suture rectopexy performed by Dr. Pradhan. An Occupational Therapy consult was ordered to (A) pt with functional (I) of his colostomy bag (I). Past Medical History: All Active Problems? Infected pilonidal cyst (Acute) Rectal prolapse (Acute) Hemorrhoids (Acute) Erectile dysfunction (Acute) Quadriplegia following spinal cord injury (Chronic) Tobacco abuse (Chronic) a.? 1 PPDH/O surgical procedure (Chronic) a.? 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 Chronic pain Left lower abdomen GERD (gastroesophageal reflux disease) Iron deficiency anemia due to dietary causes Quadriplegia due to spinal cord lesion between C5 to C7 Incomplete- has feeling in the rectal area and deep sensation in his legs Surgical History? Appendectomy (~09/1996) History of spinal fusion S/P hemorrhoidectomy (~03/2018) hemorrhoid banding Social History/Home Situation: Pt lives in a private home. He has increased support from his sister and his dad. He is (I) with transfers to and from his wheelchair, getting dressing and eating. He does not need (A) on a regular basis. He is able to drive (I). Functionally his colostomy is new and adding into his routine. SUBJECTIVE: Pt was sitting in bed when OT arrived. He is agreeable to todays session. OBJECTIVE: General Observation: Pleasant, quadriplegia following a spinal cord injury, IV In (R) dorsal handx2, colostomy in place Mental Status: A&Ox4 Pain: c/o pain in his stomach, he states that any transfers or movement is really bothersome. He would like to stay one more night to get his pain better managed. ROM: RUE AROM WFL, no digit extension, flexion of digits at the MPs L UE AROM WFL, no digit extension, flexion of digits at the MPs FUNCTIONAL MOBILITY/ADLS: Self Care Training [id number]: INFORMED CONSENT/EDUCATION: Pt instructed in purpose of OT Consult and plan of care. ASSESSMENT: Patient is a 32-year-old male referred to occupational therapy services with diagnosis of colostomy in place, muscle spasms (B) LE, infected pilonidal cyst, quadriplegia following spinal cord injury. Patient presents with clinical signs and symptoms consistent with dx. OT was consulted to help pt with functional (I) with his colostomy bag. The goal was to promote (I) as pt lives alone. He is receptive to any adaptive equipment needed. Goal is to work with pt over the next day to help him with this. Patient is assessed as a Moderate 85218 complexity based on the following: History: see above Examination: see functional limitations as noted above Presentation: evolving Decision Making: moderate complexity GOALS Goals x1 week 1. Pt will be (I) with colostomy bag with modifications for decreased functional tip pinch. PLAN OF CARE/TREATMENT PLAN: 1x/day, 5 days/ week x 1week Initiate Occupational Therapy Services for bathing, dressing, grooming, toileting, eating, transfer training. DISCHARGE RECOMMENDATIONS Home with services when medically cleared per MD for management and (A) as needed for colostomy bag to increase pts functional (I). TREATMENT TIME/MINUTES/CODES 36536, [id number], 55 minutes Chana Mckeon OTR/[facility] [place], [place]
[2022-12-22] MEDS: Docusate Sodium 100 MG CAP PO ×4 (11:44→21:45)
[2022-12-22] MEDS: Enoxaparin 40 MG/0.4 ML SYR SC (13:47)
--- NOTE | 2022-12-22 15:43 | W.PM.PROGNOT ---
Date of Service Date of service: 12/22/22 Time of Service: 15:43 Assessment and Plan Assessment and plan (1) Colostomy in place: Status: Chronic Assessment and plan: I'll increase the dilaudid today since he ran out of buccal buprenorphine ran out. I will also convert his IV medications to PO for tonight. He can practice changing the stoma device today, and we will anticipate discharge home tomorrow. Subjective Subjective Interval history since last seen: He has some colicky pain that extends along his right rib cage. He has been eathing and drinking without issues. He was able to emty his own colostomy today. Exam GI Other: Abdomen is soft and non-distended. Wounds are clean and healing. Stoma looks fine. Objective Last Vital Signs Temp 96.8 F L 12/21/22 23:04 Pulse 45 L 12/21/22 23:04 Resp 16 12/21/22 23:04 BP 135/84 12/21/22 23:04 Pulse Ox 98 12/21/22 23:04 Laboratory Results - last 24 hr 12/22/22 06:24 WBC 5.52 RBC 4.76 Hgb 13.4 L Hct 39.9 L MCV 84 MCH 28.2 MCHC 33.6 RDW 13.6 Plt Count 145 MPV 10.4 Immature Gran % 0.2 Neutrophils % 56.9 Lymphocytes % 31.2 Monocytes % 8.9 Eosinophils % 2.4 Basophils % 0.4 Nucleated RBC % 0.0 Absolute Neutrophils 3.15 Absolute Lymphocytes 1.72 Absolute Monocytes 0.49 Absolute Eosinophils 0.13 Absolute Basophils 0.02 Time Spent with Patient Time Spent with Patient: 35-49 minutes Time was spent: preparing to see the patient(eg.review tests), counseling the patient and care coordination
[2022-12-22 15:44] VITALS: BP 147/88; PULSE 63; RESP 20; TEMP 36.7; O2SAT 97
--- NOTE | 2022-12-22 16:30 | CMPROGNOTE_ITS ---
Date of service: 12/22/22 Time of Service: 16:30 Care Management Progress Note Progress Note Text Progress Note Text: S/O: Aly was lying in bed with CM met with him. He has discussed adaptive techniques to manage his colostomy with OT and is determined to be independent with it once he leaves the hospital. His sister and father have offered to help him with it after discharge, if needed. Aly shares that he's been getting abdominal pain after he transfers. Primary RN is aware. Ostomy support and supplies will be provided by [facility] following discharge, CM notified agency 12/22/22. Aly has already ordered colostomy samples of his choice through [facility]. Per Dr. Sanders, med changes were made and stoma care/education is being reinforced overnight, may discharge tomorrow if medically ready. A: 32 year old male admitted to [facility] on 12/19/22 for rectal prolapse with surgical intervention. P: New colostomy as of 12/19/22. Anticipate, he will discharge home with New [facility] RN services and transport via private vehicle with family when medically ready p er Surgical Provider. He will follow up with his PCP, Surgical team and discharge plan of care. CM will continue to follow.
[2022-12-22] MEDS: Acetaminophen 325 MG TAB 650 MG PO (17:58)
[2022-12-22 19:32] VITALS: O2SAT 98
[2022-12-22] MEDS: HYDROmorphone 4 MG TAB 12 MG PO (20:04)
[2022-12-22] MEDS: Amitriptyline 10 MG TAB PO (21:46)
[2022-12-23] MEDS: HYDROmorphone 4 MG TAB 12 MG PO ×3 (01:12→10:30)
[2022-12-23] MEDS: diazePAM 5 MG TAB PO ×3 (01:13→10:31)
[2022-12-23 01:16] VITALS: BP 100/65; PULSE 58; RESP 16; TEMP 37.6; O2SAT 95
[2022-12-23] MEDS: tiZANidine 4 MG TABLET PO ×2 (05:02→11:54)
--- NOTE | 2022-12-23 07:32 | DSE_ITS ---
Date of service: 12/23/22 Time of Service: 07:33 DS: Diagnosis Discharge Diagnosis (1) Colostomy in place: Status: Chronic Discharge Plan Disposition Patient Disposition: Home W/Home Health Services Condition: Good Discharge Details Reason For Visit: Rectal Prolapse Admit Date/Time: 12/19/22 12:52 Admit Provider: Juan Diego Sanders Attending Provider: Juan Diego Sanders Primary Care Provider: Donte Padgett Hospital Course Hospital Course: Aly underwent elective end colostomy for fecal diversion in the setting of paraplegia with rectal prolapse and pernieal infections. His post-operative course was complicated by acute on chronic pain. His medications were titrated. His diet was advanced as the stoma began functioning. Home Meds and New Rx's Prescriptions: New (DME) colostomy bags 3 misc See Rx Instructions .Route Qty: 30 3RF Rx Instructions: As directed Continued docusate sodium [Colace] 100 mg capsule 100 mg PO TID PRN (DME) Bard Coude Tip Catheter 14 Fr misc See Rx Instructions .Route Rx Instructions: As directed magnesium hydroxide [Milk of Magnesia] 400 mg/5 mL suspension 5 ml PO DAILY PRN hydromorphone 8 mg tablet 8 - 16 mg PO Q8H PRN (Reason: Pain) Patient Comments: TAKE 1 (MODERATE PAIN) TO 2 (SEVERE PAIN) TABLETS BY MOUTH EVERY 8 HOURS NEEDED FOR PAIN baclofen 20 mg tablet 20 mg PO QID Patient Comments: TAKE ONE TABLET BY MOUTH FOUR TIMES A DAY gabapentin 400 mg capsule 800 mg PO TID Patient Comments: TAKE TWO CAPSULES BY MOUTH THREE TIMES A DAY Rx Instructions: taking BID buprenorphine HCl [Belbuca] 600 mcg film 600 mcg BUCCAL BID Patient Comments: PLACE ONE FILM INSIDE CHEEK TWICE A DAY naproxen sodium [Aleve] 220 mg Capsule 220 mg PO BID PRN Discontinued bisacodyl [Dulcolax (bisacodyl)] 5 mg tablet,delayed release (DR/EC) 5 mg PO ONCE Qty: 8 0RF Rx Instructions: take per colonoscopy instructions neomycin 500 mg tablet 500 mg PO .COMPLEX Qty: 8 0RF Rx Instructions: 500 mg orally Per bowel surgery instructions; metronidazole 500 mg tablet 500 mg PO .COMPLEX Qty: 8 0RF Rx Instructions: 500 mg orally Per bowel surgery instructions; ondansetron HCl 8 mg tablet 8 mg PO Q12H Qty: 3 0RF Discharge Instructions Instructions: Colostomy Care (DC) Additional Instructions: Activity at Home after surgery: 1. Make sure you walk outside at least 4 times per day 2. You should be able to climb a flight of stairs 3. No driving while in pain or taking pain medications 4. No strenuous activity or heavy lifting for 4 weeks (open surgery) Diet, Nutrition, & wound healin. Avoid alcohol until after you are recovered from your surgery 2. Make sure to eat plenty of lean protein (meat, fish, eggs, cottage cheese, beans) 3. Eat a variety of fruits and vegetables. Eat plenty of high fiber foods to avoid constipation. 4. Drink plenty of liquids to stay hydrated and avoid constipation Pain Medications: 1. Tylenol 650mg every 6 hours as needed and Ibuprofen 600 mg every 6 hours as needed. You may alternate between the 2 medications every 3 hours 2. Take your normal dose of Hydromorphone 3. You may take an extra 4 mg every 4 hours in between Medications: 1. Zanaflex was prescribed for muscle spasms 2. Continue With senekot for your bowels. You can add Milk of Magnesium prn (I believe there is a pill/capsule out there) Other: 1. You may shower daily. Do not scrub the incisions 2. Do not soak the incisions for 1 week 3. You may alternate ice and heat as needed for pain and swelling Wound Care: 1. Keep the incisions clean and dry Other Services that may have been ordered: Home Health- to help with ostomy care Please call our office if you develop: 1. Fevers >101.5 2. Nausea or Vomiting 3. Worsening pain 4. Redness and thick discharge from the wounds If after hours please call the Hospital at and ask to speak to the on-call surgeon Stand Alone Forms: Nursing Discharge Form Referrals: Yarely Pradhan MD [ [facility] STAFF PHYSICIAN] - 12/30/22 2:30 pm Activity:: Activity as Tolerated Equipment/Supplies:: colostomy bags- 1 wk Diet:: As Tolerated DS: Summary Time Spent with Patient providing and/or coordinating discharge services: Greater than 30 minutes Specific discharge activities: 60 minutes spend face to face going over medications and ostomy care Status at Discharge Functional status at discharge: wheelchair bound Overall status at discharge: patient is back to baseline Mental Status: mental status grossly normal Speech and Movement: speech and movement normal Mood: congruent mood Affect: normal affect Exam Const General: cooperative, healthy appearing, comfortable and no acute distress Nutritional Appearance: average body habitus Orientation: alert and oriented x3 HENMT Head: normocephalic and atraumatic Resp Effort & Inspection: normal respiratory effort Auscultation: clear to auscultation bilaterally Cardio Rate: regular rate Rhythm: regular rhythm GI Inspection: incision (c/d/i) and other (ostomy pink- soft stool in the bag) Psych Mental Status: mental status grossly normal Speech and Movement: speech and movement normal Mood: congruent mood Affect: normal affect DS: Data Vitals/I&O Vitals and I&O: Vital Signs Temperature 99.7 F H 12/23/22 01:16 Temperature Source Tympanic 12/23/22 01:16 Pulse 58 L 12/23/22 01:16 Pulse Rhythm Regular 12/23/22 01:27 Respiratory Rate 16 12/23/22 01:16 Respiratory Effort Normal, Non-Labored 12/23/22 01:27 Respiratory Depth Normal 12/23/22 01:27 Respiratory Pattern Normal 12/23/22 01:27 Blood Pressure 100/65 12/23/22 01:16 Pulse Oximetry 95 12/23/22 01:16 Respiratory End-tidal CO2 40 12/19/22 14:25 Oxygen Delivery Method Room Air 12/23/22 01:16 Oxygen Flow Rate 0 12/23/22 01:16 Pain Level 7 12/23/22 01:16 Comment 10/10 pain, prn given results pending, nurse will update provider 12/20/22 08:06 Intake & Output 12/22/22 12/22/22 12/23/22 11:59 23:59 11:59 Intake Total 350 / 600 250 / 600 Output Total 2074 / 3775 1699 / 3774 1800 / 1800 Balance -1725 / -5 -1450 / -5 -1800 / -1800 Intake: IV 100 / 100 Oral 250 / 500 250 / 500 Output: Urine 2074 1600 / 5 1800 / 1800 Stool 100 / 100 Other: Urine Color Pale Yellow Yellow Yellow Urine Appearance Mucous Threads Clear Clear Urine Odor Normal None Comment urine is bubbly Stool Characteristics Soft Liquid Brown Voiding Methods Indwelling Catheter Data Completed and Pending Labs on day of discharge: Labs from last 24 hours 12/23/22 05:35 WBC Cancelled RBC Cancelled Hgb Cancelled Hct Cancelled MCV Cancelled MCH Cancelled MCHC Cancelled RDW Cancelled Plt Count Cancelled MPV Cancelled PFSH All Active Problems Colostomy in place (Chronic ~12/19/22) Muscle spasms of both lower extremities (Acute) Infected pilonidal cyst (Acute) Rectal prolapse (Acute) Hemorrhoids (Acute) Erectile dysfunction (Acute) Quadriplegia following spinal cord injury (Chronic) Tobacco abuse (Chronic) a. 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 appendectomy 09/1996 History of spinal fusion S/P colostomy (~12/19/22) S/P hemorrhoidectomy (~03/2018) hemorrhoid banding Status post appendectomy Family History Mother No problems noted. Father No problems noted. Sister No problems noted. Brother No problems noted. Grandfather Personal history of malignant neoplasm LUNG Grandfather No problems noted. Grandmother No problems noted. Grandmother No problems noted. Social History Smoking/Tobacco Use Status: Current every day Tobacco Type: cigarettes Smoking packs per day: 1 Smoking cigarettes per day: 20.0 Smoking risk assessment performed?: Yes Alcohol Intake: current Alcohol Intake frequency: holidays/special occasions only Drug use: Daily Substance use type: marijuana Current gender identity: male Do you feel safe at home: Yes Do you feel safe in your relationship?: Yes Additional Social history: Weighed pt with carol, pt. used wheelchair Unable to assess eva, does do some transfer himself with the board he has with him at all times, but from to hospital bed willrequire some assistance Time Spent with Patient Time Spent with Patient: 70-84 minutes4 Time was spent: preparing to see the patient(eg.review tests), obtaining and/or reviewing separately otained hiistory, indepentently interpreting results and counseling the patient (60 minutes of face to face)
[2022-12-23 07:34] VITALS: BP 118/83; PULSE 66; RESP 18; TEMP 37.6; O2SAT 97
--- NOTE | 2022-12-23 08:29 | PDOC.HHF2F_ITS ---
Home Health Referral Registered Nurse: Check all that apply Instruct on ostomy care: Ordered Assess for exacerbation of medical condition, instruct patient/caregivers on signs and symptoms to report for early detection: Ordered Home Bound Status Requires the aid of supportive device (check all that apply): Wheelchair Patient has a condition such that leaving home is medically contraindicated (Describe): recent surgery Encounter Date and Reason: I certify that a FTF encounter for this patient was performed on December 23, 2022 and that such encounter was related to the primary reason the patient requires home health services. The encounter was conducted in the following manner: * By me as the certifying physician, SPANISH SPEAKING BABYSITTER, PA or * By an inpatient physician, SPANISH SPEAKING BABYSITTER or PA during an inpatient stay who communicated findings to me, Certification And Authentication I certify that I composed the above information based on my clinical judgment relating to this patient's medical condition and, if applicable, clinical findings communicated to me by the NPP or inpatient physician who performed the FTF encounter. Name of Provider that will be monitoring home health services: Yarely Pradhan
[2022-12-23] MEDS: Milk of Magnesia 30 ML CUP PO (08:45)
[2022-12-23] MEDS: Psyllium PKT 1 EACH PO (08:46)
[2022-12-23] MEDS: Baclofen 10 MG TAB 20 MG PO ×2 (08:46→11:54)
[2022-12-23] MEDS: Acetaminophen 325 MG TAB 650 MG PO (08:47)
[2022-12-23] MEDS: Gabapentin 400 MG CAP PO (08:47)
[2022-12-23] MEDS: Dicyclomine 10 MG CAP PO ×2 (08:47→11:54)
[2022-12-23] MEDS: Gabapentin 600 MG TAB PO (08:47)
--- NOTE | 2022-12-23 10:25 | PDOC.CMDIS ---
Date of service: 12/23/22 Time of Service: 10:25 LACE Index Scoring Tool Questions: Length of Stay (in days): 4 - 6 Was the patient admitted via the E.D.?: No E.D. Visits: 1 Answers: Total Score: 5 Risk of Readmission: Low Risk Care Management Discharge Plan Reason for Hospitalization: Rectal Prolapse Discharge Plan: Aly is discharged home with New [facility] RN services. He will follow up with community providers and his discharge plan of care as instructed. He is transported via private vehicle with family. Patient/Family Education Needs: Review discharge instructions, limitations and plan to follow up with [facility] for ostomy supplies and support. Discuss ask me three. Services Needed at Discharge: Home Health Care Services ([facility] RN, home visit is planned for tomorrow, per Kaleb at [facility])
--- NOTE | 2022-12-23 21:28 | OT.INDS ---
Occupational Therapy Notes Occupational Therapy Inpatient Discharge Summary Date: 12/23/22 Dates of Service: 12/22-12/23 Referring Doctor:Dr. Pradhan OT Orders: Urgent Precautions: Full PATIENT PROFILE/ADMITTING DIAGNOSIS: Pt is a 32 year old male who was admitted to [facility] after a Laparoscopic creation of descending end colostomy with suture rectopexy performed by Dr. Pradhan. An Occupational Therapy consult was ordered to (A) pt with functional (I) of his colostomy bag (I). Past Medical History: All Active Problems? Infected pilonidal cyst (Acute) Rectal prolapse (Acute) Hemorrhoids (Acute) Erectile dysfunction (Acute) Quadriplegia following spinal cord injury (Chronic) Tobacco abuse (Chronic) a.? 1 PPDH/O surgical procedure (Chronic) a.? 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 Chronic pain Left lower abdomen GERD (gastroesophageal reflux disease) Iron deficiency anemia due to dietary causes Quadriplegia due to spinal cord lesion between C5 to C7 Incomplete- has feeling in the rectal area and deep sensation in his legs Surgical History? Appendectomy (~09/1996) History of spinal fusion S/P hemorrhoidectomy (~03/2018) hemorrhoid banding Social History/Home Situation: Pt lives in a private home. He has increased support from his sister and his dad. He is (I) with transfers to and from his wheelchair, getting dressing and eating. He does not need (A) on a regular basis. He is able to drive (I). Functionally his colostomy is new and adding into his routine. SUBJECTIVE:??Pt was sitting in bed when OT arrived. He is agreeable to todays session and notes that he is feeling better about performing his self care in the home setting. OBJECTIVE:? Pain: no c/o pain ROM: RUE? AROM WFL, no digit extension, flexion of digits at the MPs L UE AROM WFL, no digit extension, flexion of digits at the MPs FUNCTIONAL MOBILITY/ADLS:? Self Care Training [id number]: OT educated and trained pt in Colostomy bag care and performance of self care (I) at home. ASSESSMENT:?? Patient is a 32-year-old male referred to occupational therapy services with diagnosis of colostomy in place, muscle spasms (B) LE, infected pilonidal cyst, quadriplegia following spinal cord injury. Patient was seen for consult for (A) with his colostomy. He was receptive to modifications to the clip and was functionally (I) at his discharge. GOALS Goal-met 1. Pt will be (I) with colostomy bag with modifications for decreased functional tip pinch- met with lateral pinch PLAN OF CARE/TREATMENT PLAN: Discharge from skilled OT services. DISCHARGE RECOMMENDATIONS Home with services when medically cleared per MD for management and (A) as needed for colostomy bag to increase pts functional (I). TREATMENT TIME/MINUTES/CODES 45840, 10 minutes (07:25) MARIANELA Medley/[facility] [place], [place]
== END 2022-12-23 12:41 | disposition home health service (06) | DRG 329 ==
LOC: MS 14:41
PROVIDERS: Surgery; Admitting Provider Surgery; PCP Family Medicine; Visit Provider Surgery
PROC: 0DQP4ZZ Repair Rectum, Percutaneous Endoscopic Approach (ICD-10-PCS; CPT 44320; principal; 2022-12-19 07:30)
DX: K62.3 Rectal prolapse (principal); G82.54 Quadriplegia, C5-C7 incomplete; M62.838 Other muscle spasm; K59.09 Other constipation; F17.210 Nicotine dependence, cigarettes, uncomplicated; D64.9 Anemia, unspecified; J45.909 Unspecified asthma, uncomplicated; G43.909 Migraine, unspecified, not intractable, without status migrainosus; F41.9 Anxiety disorder, unspecified; F32.A Depression, unspecified; Z98.1 Arthrodesis status; G89.29 Other chronic pain
CPT/HCPCS: 45400; 44188; 36415; 76942; 85027; 86850; 86900; 86901; 97166; 97535; J1650; 74019; 85025; 88307; C1781; J0131; J0690; J1100; J1170; J1885; J2060; J2250; J2405; J2704; J3010; J3490

== ENCOUNTER → 2022-12-30 14:28 | Outpatient (BNVA) | payer MEDICARE, MEDICAID, SELFPAY | PROVIDERS: PCP Family Medicine; Referring Provider Family Medicine; Visit Provider Surgery | DX: Z48.815 Encounter for surgical aftercare following surgery on the digestive system (principal); Z93.3 Colostomy status ==

== ENCOUNTER → 2023-06-12 11:23 | Outpatient (BNVA) | payer MEDICARE, MEDICAID, SELFPAY | PROVIDERS: PCP Family Medicine; Referring Provider Family Medicine; Visit Provider Surgery | DX: R10.30 Lower abdominal pain, unspecified (principal); K59.03 Drug induced constipation; T40.2X5A Adverse effect of other opioids, initial encounter; G82.50 Quadriplegia, unspecified | CPT/HCPCS: 99214 ==

== ENCOUNTER 2023-06-15 18:12 | Outpatient (REF) | payer MEDICARE, MEDICAID, SELFPAY ==
[2023-06-15 13:54] LABS: Bilirubin Negative (Negative); Blood Trace-intact (Negative); Clarity Sl Cloudy (Clear); Glucose Negative (Negative); Ketones Negative (Negative); Leukocyte Esterase Large (Negative); Nitrite Negative (Negative); Specific Gravity 1.015 (1.005-1.025); Urobilinogen 0.2 mg/dL (Up to 0.2); pH 7.5 (5-8)
[2023-06-15 14:00] LABS: Bacteria Few HPF (Negative); C & S Indicated? Yes; Casts Negative LPF (Negative); Crystals Negative HPF (Negative); Epithelial Cells Rare HPF (Negative); Mucus Negative (Negative); RBC 0-2 HPF (0-2); WBC >50 HPF (0-5)
== END 2023-06-15 18:13 | disposition home or self-care (01) ==
LOC: LBN 18:12
PROVIDERS: PCP Family Medicine; Visit Provider Surgery
DX: R30.9 Painful micturition, unspecified (principal); R82.998 Other abnormal findings in urine
CPT/HCPCS: 87077; 81003; 81015; 87086; 87186

== ENCOUNTER → 2023-06-17 03:19 | Outpatient (CLI) | payer MEDICARE, MEDICAID, SELFPAY ==
--- NOTE | 2023-06-17 07:00 | DI.CT_ITS ---
Exam(s) CT ABDOMEN PELVIS W EXAM: CT ABDOMEN PELVIS W CLINICAL HISTORY: low abd pain around ostomy,perirectal pain,G82.50,R10.9,?ABSCESS. TECHNIQUE: Imaging Protocol: Axial computed tomography images with coronal and sagittal reformatted images were created and reviewed CONTRAST MATERIAL: Intravenous: Omnipaque 350 Contrast volume:100 ml Oral: no COMPARISON: CT CT ABDOMEN PELVIS W from 10/13/2022 FINDINGS: ABDOMEN and PELVIS: Lung Bases: No acute findings. Liver: Normal density. No measurable mass. Gallbladder and biliary tract: No radiodense calculus or dilation. Pancreas: Normal density. No abnormal calcifications or inflammatory process. No evidence of mass. Spleen: Normal. Kidneys: Normal size, contour and axis. No radiodense stones. No obstructive uropathy. No suspicious masses seen. Adrenal glands: No masses seen. Vasculature: Abdominal aorta non-dilated. Soft tissues: Left-sided colostomy now in place. Previously noted left gluteal fold abscess has reso lved. Bladder: Nearly empty. Not well evaluated. Old pills thickened.. No calculi.No focal mass. Bowel: No obstruction. There is a question of mild wall thickening involving the descending colon versus nondistention. The more proximal colon shows no wall thickening. Appendix normal. Peritoneal cavity: No ascites. No focal collection or mesenteric inflammatory response. Bones: Unremarkable for age. Reproductive organs: Within normal limits. Lymph nodes: Unremarkable. IMPRESSION:: Mild wall thickening of the descending colon could indicate colitis. No abnormality is seen at the ostomy. Resolution of gluteal fold abscess. RADIATION DOSE DELIVERED: Total DLP DATA REPOSITORY: All CT scans at this facility are submitted to the National Radiology Data Registry (NRDR) Dose Index Registry (DIR) with the [employer] (ACR). RADIATION OPTIMIZATION: All CT scans at this facility use at least one of these dose optimization te chniques: automated exposure control; mA and/or kV adjustment per patient size (includes targeted exa ms where dose is matched to clinical indication); or iterative reconstruction.
[2023-06-17] MEDS: Barium Sulfate 2% W/V-Berry Smoothie 450 ML BTL 900 ML PO (09:59)
[2023-06-17] MEDS: Normal Saline - Diluent 50 ML VIAL IJ (11:38)
[2023-06-17] MEDS: Omnipaque 350 MG/ML 500 ML BTL-Imaging package IJ (11:39)
== END ==
PROVIDERS: PCP Family Medicine; Visit Provider Surgery
DX: G82.50 Quadriplegia, unspecified (principal); R10.9 Unspecified abdominal pain
CPT/HCPCS: 74177

== ENCOUNTER → 2023-07-23 10:49 | Outpatient (BNVA) | payer MEDICARE, MEDICAID, SELFPAY | PROVIDERS: PCP Family Medicine; Referring Provider Family Medicine; Visit Provider Nurse Practitioner Gerontology | DX: R33.8 Other retention of urine (principal); Z87.440 Personal history of urinary (tract) infections | CPT/HCPCS: 99215 ==

== ENCOUNTER → 2023-11-02 09:45 | Outpatient (BNVA) | payer MEDICARE, MEDICAID, SELFPAY | PROVIDERS: PCP Family Medicine; Referring Provider Family Medicine; Visit Provider Nurse Practitioner Gerontology | DX: R33.8 Other retention of urine (principal); R30.9 Painful micturition, unspecified | CPT/HCPCS: 99442 ==

== ENCOUNTER 2023-11-18 16:05 | Outpatient (REF) | payer MEDICARE, MEDICAID, SELFPAY | END 2023-11-18 16:06 | disposition home or self-care (01) | LOC: LBN 16:05 | PROVIDERS: PCP Family Medicine; Visit Provider Nurse Practitioner Family | DX: R30.0 Dysuria (principal); B96.89 Other specified bacterial agents as the cause of diseases classified elsewhere | CPT/HCPCS: 87086 ==

== ENCOUNTER 2024-01-25 15:04 | Outpatient (CLI) | payer MEDICARE, MEDICAID, SELFPAY ==
--- NOTE | 2024-01-25 15:00 | RT.EKG_ITS ---
APPROVED REPORT Exam: Resting ECG Reason for Exam: encounter for procedure Patient Location: O HR:48 bpm ECG Measurements Heart Rate 48 AXIS VT 197 P 75 QRSd 96 QRS 78 QT 459 T 70 QTc 411 Conclusion Sinus bradycardia...rate< 50 RSR' in V1 or V2, probably normal variant...small R' only
== END 2024-01-25 15:05 | disposition home or self-care (01) ==
LOC: DI.CM 15:05
PROVIDERS: PCP Family Medicine; Visit Provider Nurse Practitioner Family
DX: Z01.818 Encounter for other preprocedural examination (principal); R00.1 Bradycardia, unspecified; G89.29 Other chronic pain
CPT/HCPCS: 93010

== ENCOUNTER 2024-02-11 22:15 | Outpatient (REF) | payer MEDICARE, MEDICAID, SELFPAY ==
[2024-02-11 21:40] LABS: Bilirubin Negative (Negative); Blood Small (Negative); Clarity Sl Cloudy (Clear); Glucose Negative (Negative); Ketones Negative (Negative); Leukocyte Esterase Large (Negative); Nitrite Positive (Negative); Specific Gravity 1.015 (1.005-1.025); Urobilinogen 0.2 mg/dL (Up to 0.2)
[2024-02-11 21:50] LABS: C & S Indicated? Yes; WBC >50 HPF (0-5)
== END 2024-02-11 22:16 | disposition home or self-care (01) ==
LOC: LBN 22:15
PROVIDERS: PCP Family Medicine; Visit Provider Nurse Practitioner Family
DX: R39.9 Unspecified symptoms and signs involving the genitourinary system (principal); N39.0 Urinary tract infection, site not specified; R31.9 Hematuria, unspecified
CPT/HCPCS: 87077; 81003; 81015; 87086

== ENCOUNTER 2024-02-24 10:36 | Emergency (ER) | payer MEDICARE, MEDICAID, SELFPAY ==
[2024-02-24 10:39] VITALS: BP 174/83; PULSE 54; RESP 16; TEMP 36.4; O2SAT 98
[2024-02-24 11:18] LABS: Bilirubin Negative (Negative); Blood Moderate (Negative); Clarity Sl Cloudy (Clear); Glucose Negative (Negative); Ketones Negative (Negative); Leukocyte Esterase Large (Negative); Nitrite Negative (Negative); Specific Gravity <= 1.005 (1.005-1.025); Urobilinogen 0.2 mg/dL (Up to 0.2)
[2024-02-24 11:32] LABS: Bacteria Few HPF (Negative); C & S Indicated? Yes; Casts Negative LPF (Negative); Crystals Negative HPF (Negative); Epithelial Cells Rare HPF (Negative); Mucus Trace (Negative); WBC 20-50 HPF (0-5)
--- NOTE | 2024-02-24 12:03 | ED.GENADUL_ITS ---
Discharge Plan Disposition Patient Disposition: Home Condition: Stable Discharge Details Clinical Impression: Urinary tract infection Primary Care Provider: Donte Padgett ED Provider: Torsten Roca Home Meds and New Rx's Prescriptions: New fosfomycin tromethamine 3 gram packet 3 g PO Q OTHER DAY Qty: 1 0RF Rx Instructions: take 3g by mouth every other day for 3 doses Continued docusate sodium [Colace] 100 mg capsule 100 mg PO TID PRN tadalafil 20 mg tablet 20 mg PO DAILY PRN (Reason: sexual activity) Qty: 30 3RF Rx Instructions: administer approximately 30min before sexual activity; do not use more than 1 dose per 24hrs (DME) Bard Coude Tip Catheter 14 Fr misc See Rx Instructions .Route Rx Instructions: As directed magnesium hydroxide [Milk of Magnesia] 400 mg/5 mL suspension 5 ml PO DAILY PRN fluticasone propionate [Allergy Relief (fluticasone)] 50 mcg/actuation spray,suspension 2 spray intranasal DAILY PRN (Reason: allergies) Qty: 15.8 4RF Rx Instructions: Administer 2 sprays into each nostril once a day as needed for nasal congestion methadone 10 mg tablet 10 mg PO BID Patient Comments: TAKE ONE TABLET BY MOUTH EVERY 12 HOURS baclofen 20 mg tablet 20 mg PO QID Patient Comments: TAKE ONE TABLET BY MOUTH FOUR TIMES A DAY Bonds Milk of Magnesia 311 mg tablet,chewable 311 mg PO QHS PRN (Reason: constipation) Qty: 90 3RF vardenafil 20 mg tablet 10 - 20 mg PO DAILY PRN (Reason: sexual activity) Qty: 6 3RF tizanidine 4 mg tablet See Rx Instructions .ROUTE .COMPLEX Qty: 90 3RF Dose Instruction: TAKE ONE TABLET BY MOUTH THREE TIMES A DAY NEEDED FOR MUSCLE SPASTICITY Rx Instructions: TAKE ONE TABLET BY MOUTH THREE TIMES A DAY NEEDED FOR MUSCLE SPASTICITY (DME) colostomy bags 3 misc See Rx Instructions .Route Qty: 30 3RF Rx Instructions: As directed Discharge Instructions Instructions: Fosfomycin, Urinary Tract Infection, Adult ED Additional Instructions: You were seen in the emergency department for your treatment failure of a UTI with cefpodoxime in the setting of self catheterization. Due to your con current methadone use we could not prescribe levofloxacin today due to QT prolongation. I am recommending you see [facility] urology by Thursday, I have placed you on their follow-up list and I have covered you with an IM dose of ceftriaxone here in case there is any administrative problem filling your fosfomycin. Fosfomycin is a strong antibiotic that is for drug-resistant UTIs. Please take this as directed, start today if you can fill it today if they do not require prior authorization. Please return to the emergency department for any worsening fever, worsening UTI symptoms, weakness, nausea, abnormal fast heart rate. Referrals: [facility] [Provider Group] Donte Padgett MD [Primary Care Provider] - [facility] General Date/Time Provider Initiated Documentation: 02/24/24 10:58 . HPI Narrative: 33 year-old male presents to ED today by POV/wheelchair with his father with a chief complaint of continuing UTI symptoms, mild chills occasionally with onset after treatment failure of cefpodoxime- performs self-cath's, paraplegic. Quality described as occasional chills, feels like many other past UTIs, no radiation to fever, tachycardia, weakness or nausea. Severity is described as mild. Palliating factors include cefpodoxime without relief. Provoking factors include nothing specific. Patient not anticoagulated. Related Data Home Medications ?Medication ?Instructions ?Recorded ?Confirmed baclofen 20 mg tablet 20 mg PO QID 10/13/22 02/24/24 catheter 14 Fr (Bard Coude Tip 12/03/22 02/11/24 Catheter) docusate sodium 100 mg capsule 100 mg PO TID PRN 12/03/22 02/24/24 (Colace) magnesium hydroxide 400 mg/5 mL 5 ml PO DAILY PRN 12/03/22 02/24/24 oral suspension (Milk of Magnesia) colostomy bags 3 #30 ea 12/22/22 02/11/24 magnesium hydroxide 311 mg 311 mg PO QHS PRN constipation #90 12/23/22 02/24/24 chewable tablet (Bonds Milk of tabs Magnesia) vardenafil 20 mg tablet 10 - 20 mg (0.5 - 1 x 20 mg) PO 01/10/23 02/24/24 DAILY PRN sexual activity #6 tab-caps fluticasone propionate 50 2 spray intranasal DAILY PRN 03/25/23 02/24/24 mcg/actuation nasal allergies #15.8 mL spray,suspension (Allergy Relief (fluticasone)) tizanidine 4 mg tablet See Rx Instructions .Route 06/19/23 02/24/24 .COMPLEX #90 tabs tadalafil 20 mg tablet 20 mg PO DAILY PRN sexual activity 09/02/23 02/24/24 #30 tabs methadone 10 mg tablet 10 mg PO BID 01/25/24 02/24/24 fosfomycin tromethamine 3 gram 3 g PO Q OTHER DAY Drug Resistant 02/24/24 oral packet UTI #1 ea Previous Rx's ?Medication ?Instructions ?Recorded colostomy bags 3 #30 ea 12/22/22 magnesium hydroxide 311 mg 311 mg PO QHS PRN constipation #90 12/23/22 chewable tablet (Bonds Milk of tabs Magnesia) vardenafil 20 mg tablet 10 - 20 mg (0.5 - 1 x 20 mg) PO 01/10/23 DAILY PRN sexual activity #6 tab-caps fluticasone propionate 50 2 spray intranasal DAILY PRN 03/25/23 mcg/actuation nasal allergies #15.8 mL spray,suspension (Allergy Relief (fluticasone)) tizanidine 4 mg tablet See Rx Instructions .Route 06/19/23 .COMPLEX #90 tabs tadalafil 20 mg tablet 20 mg PO DAILY PRN sexual activity 09/02/23 #30 tabs fosfomycin tromethamine 3 gram 3 g PO Q OTHER DAY Drug Resistant 02/24/24 oral packet UTI #1 ea Allergies Allergy/AdvReac Type Severity Reaction Status Date / Time No Known Allergies Allergy Verified 02/24/24 10:42 General Stated Complaint: Urinary HAILE: 3 Review of Systems All systems reviewed & are unremarkable except as noted in HPI and below Exam Narrative Exam Narrative: GENERAL APPEARANCE: Well-nourished, non-toxic, awake and alert, atraumatic, no acute distress. SKIN: Warm, pink, dry, intact, without rashes/lesions/ulcerations. HEAD: Normocephalic, atraumatic, normal hair distribution for gender/age. EYES: Normal conjunctiva, no exudates on lids/lashes. ENT: Nares patent, no circumoral cyanosis, no facial swelling NECK: Supple, trachea midline, painless cervical ROM. LUNGS/CHEST: Non-labored respirations, normal A/P diameter, symmetrical expansion, no chest wall deformity HEART (CV/PV): No peripheral edema, no JVD. ABDOMEN: Soft, non-distended, no guarding, no tenderness, no CVA tenderness to percussion bilaterally. MSK: Normal ROM, no swelling/deformity to bilateral UEs or LEs, moving all extremities without weakness, no cyanosis, spine midline without tenderness, normal curvature. NEURO: Mental Status AAOx4 - alert to person, place, time, events No facial droop, no forehead involvement. Motor: No focal weakness - strength 5/5 in bilateral UEs and LEs, proximal and distal, symmetric. Sensory: sensation intact to light touch globally. Gait NT. PSYCH: euthymic, cooperative, pleasant, appropriate speech Course Vital Signs Vital signs: Vital Signs Temperature 36.4 C 02/24/24 10:39 Pulse 54 L 02/24/24 10:39 Respiratory Rate 16 02/24/24 10:39 Blood Pressure 174/83 H 02/24/24 10:39 Pulse Oximetry 98 02/24/24 10:39 Temperature 36.4 C 02/24/24 10:39 Pulse 54 L 02/24/24 10:39 Respiratory Rate 16 02/24/24 10:39 Blood Pressure 174/83 H 02/24/24 10:39 Pulse Oximetry 98 02/24/24 10:39 Oxygen Delivery Method Room Air 02/24/24 10:39 Oxygen Flow Rate 0 02/24/24 10:39 Lab/Test Results Lab/Test Results: 02/24/24 11:03 Urine - Reflex from Ua Urine Culture - Pending Laboratory Tests Range/Units 02/24/24 11:03 Urine Color (Yellow) Yellow Urine Clarity (Clear) Sl Cloudy Urine pH (5-8) 6.0 Ur Specific Galliano (1.005-1.025) <= 1.005 Urine Protein (Neg-Trace) mg/dL Negative Urine Ketones (Negative) mg/dL Negative Urine Blood (Negative) Moderate H Urine Nitrite (Negative) Negative Urine Bilirubin (Negative) Negative Urine Urobilinogen (Up to 0.2) mg/dL 0.2 Ur Leukocyte Esterase (Negative) Large H Urine RBC (0-2) HPF 10-20 H Urine WBC (0-5) HPF 20-50 H Ur Epithelial Cells (Negative) HPF Rare Urine Crystals (Negative) HPF Negative Urine Bacteria (Negative) HPF Few Urine Casts (Negative) LPF Negative Urine Mucus (Negative) Trace Ur Culture Indicated? Yes Urine Glucose (Negative) mg/dL Negative Medical Decision Making This dictation utilizes [id number]-[id number] dictation software and may contain unedited grammatical errors. 33 year-old male presents to ED today by POV/wheelchair with his father with a chief complaint of continuing UTI symptoms, mild chills occasionally with onset after treatment failure of cefpodoxime- performs self-cath's, paraplegic. Quality described as occasional chills, feels like many other past UTIs, no radiation to fever, tachycardia, weakness or nausea. Severity is described as mild. Palliating factors include cefpodoxime without relief. Provoking factors include nothing specific. Patients' medical history: [ ]. Family and social history: [ ]. Pertinent exam findings / vital signs include no CVA tenderness bilaterally, no abdominal tenderness, nontoxic vitals, afebrile. Differential / pathologies of concern include UTI, pyelonephritis, less likely sepsis. Diagnostic studies of: -UA. Interventions of: -Outpatient prescription for fosfomycin. ED Course/Assessment/Plan: 33-year-old male patient was recently treated with cefpodoxime in the setting of complex UTI with self cath as he is a paraplegic. His urine culture at primary care grew out strep B, R UA shows that he still has a significant infection, I am resending a culture, covered him with ceftriaxone IM as another can be pure carotic problems with filling fosfomycin. He is not a great candidate for levofloxacin due to methadone use and possibility of long QT syndrome and has failed cephalosporins, I do have a possible suspicion that this is an ESBL organism and that if he does fail fosfomycin he may need to return for IV ertapenem. Placed him on the list for urology follow-up. Discussed return pre cautions for signs of spreading systemic infection like fever, nausea or weakness. Findings not consistent with sepsis, no tachycardia/afebrile, discussed lengthy workup with patient he prefers to trial another antibiotic and he has good supervision with his family and assures me that he will come back for any complications. Disposition of urinary tract infection. Patient verbalized understanding of the plan and return to ED criteria and engaged in shared decision making. Medical Records Medical records reviewed: Yes I reviewed the patient's medical records. Lab Data Lab results reviewed: Yes I reviewed the patient's lab results. Labs: 02/24/24 11:03 Urine - Reflex from Ua Urine Culture - Pending Laboratory Tests Range/Units 02/24/24 11:03 Urine Color (Yellow) Yellow Urine Clarity (Clear) Sl Cloudy Urine pH (5-8) 6.0 Ur Specific Galliano (1.005-1.025) <= 1.005 Urine Protein (Neg-Trace) mg/dL Negative Urine Ketones (Negative) mg/dL Negative Urine Blood (Negative) Moderate H Urine Nitrite (Negative) Negative Urine Bilirubin (Negative) Negative Urine Urobilinogen (Up to 0.2) mg/dL 0.2 Ur Leukocyte Esterase (Negative) Large H Urine RBC (0-2) HPF 10-20 H Urine WBC (0-5) HPF 20-50 H Ur Epithelial Cells (Negative) HPF Rare Urine Crystals (Negative) HPF Negative Urine Bacteria (Negative) HPF Few Urine Casts (Negative) LPF Negative Urine Mucus (Negative) Trace Ur Culture Indicated? Yes Urine Glucose (Negative) mg/dL Negative Quality:SDOH Health Related Social Needs: No Data to Display PFSH All Active Problems (Updated 02/24/24 @ 12:34 by MALCOM Oliveira) Urinary tract infection (Acute) Urinary retention (Acute) Painful urination (Acute) Constipation due to opioid therapy (Acute) Abdominal pain (Acute) Quadriplegia following spinal cord injury (Chronic) Tobacco abuse (Chronic) a. 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 (Acute 06/16/14) Depression (Acute) Closed fracture of fifth metacarpal bone (Acute 05/12/09) Anxiety (Acute) Erectile dysfunction (Acute) Infected pilonidal cyst (Acute) Muscle spasms of both lower extremities (Acute) Colostomy in place (Chronic ~12/19/22) Chronic nasal congestion (Acute) Medical History Wart of hand Chronic pain Left lower abdomen Sepsis Anemia Iron deficiency anemia due to dietary causes GERD (gastroesophageal reflux disease) Quadriplegia due to spinal cord lesion between C5 to C7 Incomplete- has feeling in the rectal area and deep sensation in his legs Surgical History S/P colostomy (~12/19/22) Status post appendectomy S/P hemorrhoidectomy (~03/2018) hemorrhoid banding History of spinal fusion Appendectomy (~09/1996) H/O surgical procedure a. appendectomy 09/1996 Family History Mother No problems noted. Father No problems noted. Sister No problems noted. Brother No problems noted. Grandfather Personal history of malignant neoplasm LUNG Grandfather No problems noted. Grandmother No problems noted. Grandmother No problems noted. Social History Smoking/Tobacco Use Status: Current every day Tobacco Type: cigarettes Smoking packs per day: 1 Smoking cigarettes per day: 20.0 Smoking risk assessment performed?: Yes Alcohol Intake: current Alcohol Intake frequency: holidays/special occasions only Drug use: Daily Substance use type: marijuana Current gender identity: male Do you feel safe at home: Yes Do you feel safe in your relationship?: Yes Additional Social history: Weighed pt with carol, pt. used wheelchair Unable to assess eva, does do some transfer himself with the board he has with him at all times, but from to hospital bed willrequire some assistance
--- NOTE | 2024-02-24 12:43 | NUR.NOTE ---
Referral sent to urology for a follow up by 02/29/24 for a UTI.Nursing Note:
[2024-02-24] MEDS: cefTRIAXone 1 GM VIAL IM (13:03)
[2024-02-24] MEDS: Lidocaine 1% Multi-Dose 50 ML VIAL (13:04)
[2024-02-24 13:07] VITALS: BP 174/83; PULSE 54; RESP 16; TEMP 36.4; O2SAT 98
--- NOTE | 2024-02-24 15:28 | NUR.NOTE ---
Patient called stating that the prescription was not covered by his insurance. I spoke with Torsten Roca and he stated that he has failed all other antibiotics and that this was the outpatient medication that he needed. He asked that [facility] do a prior authorization for the medication for the patient. I called the [facility] MEdical line and left a message for prior authorizations asking them to do this. Nursing Note:
== END 2024-02-24 13:12 | disposition home or self-care (01) ==
PROVIDERS: Emergency Provider Physician Assistant; PCP Family Medicine
DX: R30.0 Dysuria (principal); R32 Unspecified urinary incontinence; N39.0 Urinary tract infection, site not specified
CPT/HCPCS: 96372; 99284; 81003; 81015; 87086; 99283; J0696

== ENCOUNTER → 2024-02-29 14:22 | Outpatient (BNVA) | payer MEDICARE, MEDICAID, SELFPAY | PROVIDERS: PCP Family Medicine; Referring Provider Family Medicine; Visit Provider Nurse Practitioner Gerontology | DX: R33.8 Other retention of urine (principal) | CPT/HCPCS: 99442 ==

== ENCOUNTER 2024-03-04 16:40 | Outpatient (REF) | payer MEDICARE, MEDICAID, SELFPAY ==
--- OUTSIDE RECORDS SUMMARY | 2024-03-04 16:53 | XMS_ITS | Encounter Summary ---
Author Organization [facility] Address [facility] [place] [address] Care Team Providers Care Engineering Team Supervisor Name Role Phone Donte Padgett MD Primary Care Provider [phone] Encounter Details Date Type Department Care Team (Late st Contact Info) Description 02/19/2024 [place] [phone] Yue Darby MD [facility] HOSPICE AND [place] [address] Chronic left lower quadrant pain Social History Tobacco Use Types Packs/Day Years Used Date Smoking Tobacco: Every Day Cigarettes Smokeless Tobacco: Never Alcohol Use Standard Drinks/Week Comments No 0 (1 standard drink = 0.6 oz pur e alcohol) Sex and Gender Information Value Date Recorded Sex Assigned at Not on file Gender Identity Not on file Sexual Orientation Not on file documented as of this encounter Plan of Treatment Upcoming Encounters Date Type Department Care Team (Late st Contact Info) Description 03/17/2024 2:00 PM EDT TH Visit (TeleHealth) [place] [phone] Yue Darby MD [facility] HOSPICE AND [place] [address] 04/12/2024 11:30 AM EDT [place] [phone] Yue Darby MD [facility] HOSPICE AND [place] [address] 04/28/2024 8:30 AM EDT TH Visit (TeleHealth) [place] [address] Yue Darby MD [facility] HOSPICE AND [place] [address] documented as of this encounter Visit Diagnoses Diagnosis Chronic left lower quadrant pain Abdominal pain, left lower quadrant documented in this encounter Care Teams Engineering Team Supervisor Relationship Specialty Start Date End Date Donte Padgett MD [address] [place] [address] PCP - General Family Medicine 08/24/15 documented as of this encounter
--- OUTSIDE RECORDS SUMMARY | 2024-03-04 16:53 | XMS_ITS | Encounter Summary ---
Author Organization [facility] Address [facility] [place] [address] Care Team Providers Care Boat Loader Name Role Phone Donte Padgett MD Primary Care Provider [phone] Encounter Details Date Type Department Care Team (Late st Contact Info) Description 02/02/2024 Notes [place] [phone] Miranda See, RN [facility] [address] [facility] [place] [address] Social History Tobacco Use Types Packs/Day Years Used Date Smoking Tobacco: Every Day Cigarettes Smokeless Tobacco: Never Alcohol Use Standard Drinks/Week Comments No 0 (1 standard drink = 0.6 oz pur e alcohol) Sex and Gender Information Value Date Recorded Sex Assigned at Not on file Gender Identity Not on file Sexual Orientation Not on file documented as of this encounter Progress Notes * Miranda See RN - 02/02/2024 12:46 PM EDT Spoke with pharmacy and pt. Confirmed that Aly picked up his Methadone RX on 01/24/24. Pt paid outof pocket.Unfortunately there was an issue and a PA was needed per the pharmacy. Reviewed PA TEAM documentation stating the Methadone did not need a PA as was cover by his insurance [employer]. This was relayed to the pharmacy and pt. Recommended pt review health insurance plans and make sure pharmacy and had correct insurance plan/documentation. Pt understood and agreed with this plan. documented in this encounter Plan of Treatment Upcoming Encounters Date Type Department Care Team (Late st Contact Info) Description 03/17/2024 2:00 PM EDT TH Visit (TeleHealth) [place] [address] Yue aDrby MD [facility] [address] HOSPICE AND [place] [address] 04/12/2024 11:30 AM EDT [place] [phone] Yue Darby MD [facility] HOSPICE AND [place] [address] 04/28/2024 8:30 AM EDT TH Visit (TeleHealth) [place] [address] Yue Darby MD [facility] HOSPICE AND [place]AT[place] [address] documented as of this encounter Visit Diagnoses Not on filedocumented in this encounter Care Teams Boat Loader Relationship Specialty Start Date End Date Donte Padgett MD [address] [place] [address] PCP - General Family Medicine 08/24/15 documented as of this encounter
--- OUTSIDE RECORDS SUMMARY | 2024-03-04 16:53 | XMS_ITS | Encounter Summary ---
Author Organization [facility] Address [facility] [place] [address] Care Team Providers Care Peanut Grader Name Role Phone Donte Padgett MD Primary Care Provider [phone] Reason for Visit * Reason Onset Date Comments Appointment 01/15/2024 Encounter Details Date Type Department Care Team (Late st Contact Info) Description 01/15/2024 [place] [phone] Yue Darby MD [facility] HOSPICE AND [place] [address] Appointment Social History Tobacco Use Types Packs/Day Years Used Date Smoking Tobacco: Every Day Cigarettes Smokeless Tobacco: Never Alcohol Use Standard Drinks/Week Comments No 0 (1 standard drink = 0.6 oz pur e alcohol) Sex and Gender Information Value Date Recorded Sex Assigned at Not on file Gender Identity Not on file Sexual Orientation Not on file documented as of this encounter Miscellaneous Notes * Telephone Encounter - Torri David - 01/15/2024 11:40 AM EDT Scheduling Instructions Provider: Dr Darby Visit Type (paste CARLOS Instructions or manually enter): Return for Follow-up Botox 12 weeks, Telehealth 6 weeks. If EMG Visit needed list diagnosis for the EMG to be used in Decision Tree: Appt Note: botox 12 wk Additional Info Needed: documented in this encounter Plan of Treatment Upcoming Encounters Date Type Department Care Team (Late st Contact Info) Description 03/17/2024 2:00 PM EDT TH Visit (TeleHealth) [place] [address] Yue Darby MD [facility] HOSPICE AND [place] [address] 04/12/2024 11:30 AM EDT [place] [phone] Yue Darby MD [facility] DR HOSPICE AND [place] [address] 04/28/2024 8:30 AM EDT TH Visit (TeleHealth) [place] [address] Yue Darby MD [facility] DR HOSPICE AND [place] [address] documented as of this encounter Visit Diagnoses Not on filedocumented in this encounter Care Teams Peanut Grader Relationship Specialty Start Date End Date Donte Padgett MD [address] [place] [address] PCP - General Family Medicine 08/24/15 documented as of this encounter
--- OUTSIDE RECORDS SUMMARY | 2024-03-04 16:53 | XMS_ITS | Encounter Summary ---
Author Organization [facility] [place] [address] Care Team Providers Care Skin Piler Name Role Phone Donte Padgett MD Primary Care Provider [phone] Reason for Visit * Reason Onset Date Comments Prior Authorization 01/28/2024 methadone (D olophine) 10 mg tablet Encounter Details Date Type Department Care Team (Late st Contact Info) Description 01/28/2024 [place] [address] Faby Kimble LNA Prior Authorization (methadone (Dolophine) 10 mg tablet) Social History Tobacco Use Types Packs/Day Years [...] encounter Miscellaneous Notes * Telephone Encounter - Leland Anderson CMA - 01/29/2024 4:12 PM EDT Submitted Date: 01/28/2024 PA Outcome: PA Not Needed Per [employer] insurance: No PA required at this time. Medication: methadone (Dolophine) 10 mg tablet Kumar # [id number] Case # [id number] * Telephone Encounter - Faby Kimble LNA - 01/28/2024 10:36 AM EDT PA Submitted Submitted Date: Date Submitted: 01/28/2024 Medication Prior Authorization Patient: Aly De La Torre Patient : 1990 Insurance Company: [employer] Medicare Part D Electronic Prior Authorization Form Sent via: [facility] Kumar: [id number] - Rx #: [id number] Physician: Yue Darby MD Medication Requested: methadone (Dolophine) 10 mg tablet Frequency/Sig: Take 1 tablet by mouth every 12 hours. Disp: 60 tablets Refills: 0 Currently taking: yes If yes, how lon08/2018 Diagnosis for this medication: Chronic left lower quadrant pain [R10.32, G89.29] Prior medications trialed in this patient: Medication: gabapentin (Neurontin) 400 mg capsule Approx Dates: 04/2022-09/2023 Outcome/Adverse Reactions: Inadequate response Medication: HYDROmorphone (Dilaudid) 8 mg table Approx Dates: 09/2022-current Outcome/Adverse Reactions: adjacent treatment Medication: morphine CR (MS Contin) 60 mg ER tablet Approx Dates: 07/2022-10/2023 Outcome/Adverse Reactions: Inadequate response Additional Notes: documented in this encounter Plan of Treatment Upcoming Encounters Date Type Department Care Team (Late st Contact Info) Description 03/17/2024 2:00 PM EDT TH Visit (TeleHealth) [place] [address] Yue Darby MD [facility] DR HOSPICE AND [place] [address] 04/12/2024 11:30 AM EDT [place] [address] Yue Darby MD [facility] DR HOSPICE AND [place] [address] 04/28/2024 8:30 AM EDT TH Visit (TeleHealth) [place] [address] Yue Darby MD [facility] DR HOSPICE AND [place] [address] documented as of this encounter Visit Diagnoses Not on filedocumented in this encounter Care Teams Skin Piler Relationship Specialty Start Date End Date Donte Padgett MD [address] [facility] [address] [place] [address] PCP - General Family Medicine 08/24/15 documented as of this encounter
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
--- OUTSIDE RECORDS SUMMARY | 2024-03-04 16:53 | XMS_ITS | Encounter Summary ---
Author Organization [facility] Address [facility] [place] [address] Care Team Providers Care Environmental Remediation Specialist Name Role Phone Donte Padgett MD Primary Care Provider [phone] Encounter Details Date Type Department Care Team (Late st Contact Info) Description 01/21/2024 10:30 AM EDT TH Visit (TeleHealth) [place] [address] Yue Darby MD [facility] [place] [address] Chronic left lower quadrant pain Social History [...] on file documented as of this encounter Patient Instructions * Patient Instructions* Yue Darby MD - 01/21/2024 10:30 AM EDT Your PCP's office will contact you to arrange for you to come in for another EKG. Please get this done in the next week and have them send me the results as well. This will need to happen again only if/when we adjust your methadone dose. documented in this encounter Progress Notes * Yue Darby MD - 01/21/2024 10:30 AM EDT Rehabilitation Medicine Follow-up Note Referring Provider: Dr. Cesar Fuentes Reason for Referral: LLQ pain, spasticity Primary Care Provider: Donte Padgett MD Patient ID: Aly De La Torre is a 33 y.o. right-handed male with history of C6 sensory incomplete spinal cord injury, resulting tetraplegia, neurogenic bowel and neurogenic bladder with five-year history of left lower quadrant pain of unclear etiology. History provided by: patient A video visit was made in lieu of an in-person office visit for this appointment. Patient verbally consents to this visit and understands that this visit may be billed, similar to a clinic office visit. Aly was not able to connect to today's scheduled video visit so we spoke over the phone instead. Subjective Interval History: Since last seen by me on 01/08/24 Aly has started methadone 10 mg q12h. He removed the fentanyl patch on 01/09 and started methadone 01/11. Denies having symptoms of withdrawal in the interim. Pain has been more manageable. Using Dilaudid less for breakthrough, mostly just three tabs per day. Is worried that he's lost his appetite since starting the methadone. Has no appetite except later in the day for dinner. Tries taking a few bites of breakfast and can't do anymore. Doesn't feel full, just no interest in eating. Food tastes okay. Denies nausea, constipation. Tolerates dinner without difficulty. Loves to eat. Isn't sure whether he's lost weight because can't weigh himself easily. Starting PT in [place]. Looking forward to exercising more and improving his posture in his chair. is coming up on 5 yrs old and is starting to think about getting a replacement. Because his chair is customized he had to pay out of pocket last time. The expenses were covered by a local charitable organization. His spasms have stopped since his BoNT injections also on 01/07. He is able to transfer more easily and is pleased with the results. He hasn't need tizanidine at all in the past week. 01/08/24 Aly has been having a tough time due to ongoing LLQ pain. His spasms have also gotten worse since the Botox wore off a few weeks ago. He is taking hydromorphone 12 mg on average 2-3 times per day; morning, afternoon, dinnertime. Continues on 100 mc/hr fentanyl TD but hasn't noticed a difference since going up on the dose. Denies constipation. Using dulcolax BID and Milk of Mg prn every few days if needed. Appetite not great. Is off for the summer from school and plans to return to and has access to their gym whenever he feels like it. Is hopeful that getting back in shape will help--remembers that he was in [facility] when he still lived in [place] after his SCI and felt better because of it. 11/12/23 Last seen by me via telehealth on 10/04. We communicated over the patient portal and increasedfentanyl TD to 75 mcg/hr on 10/22. Overall he has not noticed any improvement with the patch. His abdominal pain has actually increased in the past week. He continues to use the Dilaudid 3-4 x per day, using typically 5 tabs per day. The 12 mg dose usually kicks in within an hour but he finds he has to take an additional 8 mg a few hours later. He isn't sure whether the Dilaudid is effective anymore. It dulls the pain but not to the point where he feels well enough to leave the house many days. He hasn't been able to get to workconsistently, is home today due to pain. He's been missing 2-3 days of work per week. His spasms tend to be worse in the morning, uses tizanidine PRN typically when he first gets up, not every day. Appetite is pretty poor. Not eating full meals, just not hungry. Denies nausea/vomiting, constipation. He has not needed to modify his bowel regimen and his ostomy output remains loose. Social History: Surrogate decision maker/DPOA: father Harrison De La Torre (no AD on file) Home support system: Lives with younger brother who he previously had legal guardianship of but is now over age 18. Father lives nearby and is also great support. Mother has a history of mental illness and isn't able to be present for him as much. Home environment: Did not discuss. 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 Enjoys hunting but has only been able to go once this season due to pain. Substance use: Admits to actively smoking MJ, also 1/2 ppd smoker. Abstains from EtOH, admits to previously being a heavy drinker. Functional History: Prior functional status: Independent with mobility, ADLs, iADLs Driving: yes with hand controls Home DME: manual wheelchair, slide board, commode, shower chair Current Functional Status: Per patient report is Dev for all ADLs, iADLs, mobility in manual wheelchair. Thinks that WC seat is too high and this affects his posture. Isn't able to lean forward without feeling like his sternum is digging into his abdomen. Has to hunch over to propel his chair. We also discussed how positioning in his chair may impact LE swelling. Past Medical History: Active Ambulatory Problems Diagnosis Date Noted C6 spinal cord injury 02/26/2016 Neurogenic bladder 05/22/2016 Abdominal pain, chronic, left lower quadrant 08/18/2017 Neurogenic bowel 08/18/2017 Anxiety 11/30/2020 Depression 11/30/2020 Internal bleeding hemorrhoids 11/30/2020 Migraine 11/30/2020 Quadriplegia, C5-C7 incomplete 11/30/2020 Reactive airway disease 11/30/2020 Status post appendectomy 11/30/2020 History of rectal abscess 11/14/2022 Spasticity 11/14/2022 Resolved Ambulatory Problems Diagnosis Date Noted Paraplegia 05/22/2016 Chronic left hip pain 05/22/2016 Joint pain, knee 01/09/2010 Pain in joint, lower leg 01/09/2010 Anemia 11/30/2020 Closed fracture of fifth metacarpal bone 05/12/2009 Esophagitis 11/30/2020 Fatigue 11/30/2020 Sepsis 11/30/2020 Ilioinguinal neuralgia of left side 11/26/2021 Chronic incomplete spastic tetraplegia 11/14/2022 Hemorrhoids with complication 11/14/2022 No Additional Past Medical History Past Surgical History: Past Surgical History: Procedure Laterality Date PRG UNLISTED DIAGNOSTIC GASTROENTEROLOGY PROCEDURE N/A 12/11/2015 VIDEO CAPSULE ENDOSCOPY performed by Lance Pandya MD at [facility] ENDOSCOPY PRO COLONOSCOPY, DIAGNOSTIC N/A 10/18/2015 COLONOSCOPY, DIAGNOSTIC performed by Seth Yeh MD at [facility] ENDOSCOPY PRO INJECTION ANES AGENT &/ STEROID ILIOINGUINAL IH NERVES Left 11/27/2021 INJECTION ANESTHETIC, ILIOINGUINAL, ILIOHYPOGASTRIC (WRVU 1.75) performed by Mika East MD [facility] PAIN MGMT MSO PRO UPPER GI ENDOSCOPY, BIOPSY N/A 10/18/2015 EGD WITH BIOPSY performed by Seth Yeh MD at [facility] ENDOSCOPY Medications: Current Outpatient Medications on File Prior to Visit Medication Sig Dispense Refill methadone (Dolophine) 10 mg tablet Take 1 tablet by mouth every 12 hours. 28 tablet 0 HYDROmorphone (Dilaudid) 8 mg tablet Take 1-1.5 tablets by mouth every 6 hours as needed for Pain. Take 1 tab for moderate pain (5-7/10). Take 1 1/2 tabs for severe pain (8-10/10). 90 tablet 0 tiZANidine (Zanaflex) 4 mg tablet Take 1 tablet by mouth daily as needed (spasms). 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 spinal disease 30 tablet 3 pregabalin (Lyrica) 150 mg capsule Take 1 capsule by mouth 3 times daily. 90 capsule 3 baclofen (Lioresal) 20 mg tablet Take 1 tablet by mouth 4 times daily. 120 tablet 2 naloxone (Narcan) 4 mg/actuation [place], Non-Aerosol 1 each by Nasal route as needed (respiratory depression from opioid overdose). 2 each 3 vardenafiL (Levitra) 20 mg tablet TAKE 1/2 TO 1 TABLET BY MOUTH ONCE DAILY NEEDED FOR SEXUAL ACTIVITY bisacodyl EC (Dulcolax) 5 mg Tablet, Delayed Release (E.C.) Take 2 tablets by mouth daily. Can takean additional 2 tabs daily as needed for constipation. 30 tablet 0 magnesium hydroxide (Milk of Magnesia) 2,400 mg/10 mL Suspension Take by mouth daily. Indications: emptying of the bowel polyethylene glycoL (Miralax) 17 gram Powder in Packet Take 17 g by mouth daily. omeprazole 20 mg Tablet, Delayed Release (E.C.) Take 20 mg by mouth daily as needed. Prn heartburn,takes 2-3 x/week No current facility-administered medications on file prior to visit. OPIOID MANAGEMENT: Substance Use History: none Therapeutic Cannabis: recreational use only Opioid Treatment Agreement: completed 03/14/2022 Current Risk Stratification: moderate (ORT=7) Comments about ORT R in relation to this patient: Mother with long-standing mental illness, unclearSUD history; age 16-45; no personal history of substance abuse of psychologic disease. Admits to prior use of alcohol in excess, no longer drinks. Naloxone prescribed: yes OK for early refill? yes UDS: 01/08/2024 as expected, repeat yearly (due January 2025) PDMP reviewed: yes 01/08/2024 MEDD: 310 Pill Count: I have counseled Aly De La Torre about the safe use of opioids including dosing, side effects, safestorage and disposal. He knows to contact the clinic if he has questions related to pain medicationuse. Aly De La Torre has been advised that the concurrent use of benzodiazepines and opioids can increase the risk of oversedation and possibly respiratory depression. Allergies: No Known Allergies ROS: Constitutional: Denies fever/chills HEENT: Denies blurred vision, double vision, hearing loss, difficulty swallowing, sore throat CV: +leg swelling worse at end of day Pulm: Denies cough, wheezing, shortness of breath GI: +recurrent abdominal pain, no issues with ostomy output; Denies nausea, vomiting : +large volumes cathed line server MSK: Per HPI Psych: +depressed, worried about missing work days Neuro: Per HPI Objective Exam limited due to the nature of this telehealth encounter Gen: young man seated comfortably in [facility] HEENT: normocephalic, mucous membranes moist, sclera anicteric, pupils equal Resp: breathing comfortably on room air, no use of accessory muscles MSK: Increased thoracolumbar kyphosis and posterior pelvic tilt when seated. Psych: conversant, pleasant affect, good eye contact Data Review UDS 01/08/2024 + cannabinoids, hydromorphone, fentanyl + metabolites (as expected) EKG 01/08/2024 Qtc 357 Imaging: The below studies were personally reviewed. Results have previously been discussed with patient. MRI angiogram abd wwo contrast 06/05/2022: FINDINGS: Vasculature: Abdominal aorta: Normal. Celiac axis: Variant anatomy with the splenic artery, common hepatic artery, and left gastric artery having independent origins from the aorta. Severe stenosis at the origin of thesplenic artery. SMA: Normal. Normal aortomesenteric angle measuring 55 degrees. Normal aorta mesenteric angle measuring 11 mm. INES: Normal. Right renal artery: Dual patent right renal arteries. Left renal artery: Normal. Portal vein, superior mesenteric vein, splenic vein are patent. Lower chest: Normal. Liver: Normal size and signal intensity. No lesions. Bile ducts: Nondilated. Gallbladder: No gallstones. Normal caliber wall. Pancreas: Normal. Spleen: Normal. Adrenals: Normal. Kidneys: Normal. Lymph nodes: No enlarged lymph nodes. Bowel: Nondilated, no inflammatory changes. Peritoneum and mesentery: No ascites or loculated fluid collection. Marrow Signal: Normal. IMPRESSION Normal SMA/SMV. No evidence of SMA syndrome or mesenteric ischemia. CT Abd/Pelvis with contrast 02/24/2022: FINDINGS: Lower chest: Normal. Liver: Enlarged measuring 20 cm in craniocaudal dimension. Diffusely low in attenuation relative to the spleen consistent with hepatic steatosis. Focal fatty sparing along the gallbladder fossa. Bile ducts: Nondilated. Gallbladder: No calcified gallstones. Normal caliber wall. Pancreas: Normal attenuation without ductal dilatation. Spleen: Normal. Adrenals: Normal. Kidneys: Symmetric size and enhancement. No hydronephrosis. Urinary Bladder: Circumferential bladder wall thickening with shaggy appearance consistent with history of neurogenic bladder in the medical record. Vasculature: Mild mixed calcified and noncalcified atheromatous disease of the infrarenal abdominal aorta. Lymph Nodes: No enlarged lymph nodes. Bowel: Nondilated, no wall thickening. Normal appendix and terminal ileum. Peritoneum and mesentery: No ascites, free air, or loculated fluid collection. No mesenteric inflammation. Abdominal wall: Normal. Reproductive organs: Normal. Osseous structures: No suspicious lesions. IMPRESSION 1. No acute pathology identified in the abdomen or pelvis. 2. Hepatomegaly with hepatic steatosis. 3. Mild mixed calcified and noncalcified atheromatous disease of the infrarenal abdominal aorta. MRI thoracic spine 10/28/2021: FINDINGS: Evaluation of the stripper opaquer view shows previous cervical fusion at the C5, C6 and C7 level. Marrow signal intensity throughout the thoracic spine is normal. Vertebral bodies show normal height. Intervertebral disks show normal height and signal intensity. The thoracic cord appears mildly thinned but without focal signal abnormality. Degenerative changes are noted at the T10-11 level with a broad symmetric disc bulge indenting the ventral thecal sac narrowing the spinal canal The left facet shows moderate hypertrophy in this narrows the posterior lateral aspect of the canal. The left intervertebral foramen is narrowed due to hypertrophy. No paraspinal abnormalities are identified. IMPRESSION Generally somewhat thinned appearance of the cord likely related to upper cervical injury. Degenerative changes at T10-11 with moderate spinal and foraminal stenosis. Ultrasound retroperitoneal complete 07/23/2021: 1. No collecting system dilatation or sonographically evident nephrolithiasis, bilaterally. 2. Symmetric sized kidneys at the upper limits of normal with normal cortical echogenicity and visualized cortical thickness. 3. Limited evaluation of the bladder due to incomplete distention. No visualized bladder calculi. XR Pelvis and Hip 2 views LEFT 07/23/2021: No fracture or dislocation. Osteoarthropathy of both hip joints characterized by acetabular sclerosis and mild joint space narrowing. Sacroiliac joints are symmetric. Ankylosis of the pubic symphysis. A subcentimeter amorphous calcific density projects over the upper medial left thigh, likely vascular. There is also calcific density projecting over the right inferior pubic ramus which is indeterminate in location on this single AP view. IMPRESSION 1. Bilateral hip osteoarthropathy. 2. No evidence of heterotopic ossification. Previously reviewed studies: Hgb 08/17/18 9.9 Anoscopy 03/08/18 multiple bleeding internal hemorrhoids Video capsule endoscopy 12/11/2015: Normal small bowel study. Upper GI endoscopy 10/18/2015: Distal LA grade A esophagitis, irregular Z line, normal stomach and duodenum. Biopsied for celiac disease. Colonoscopy 10/18/2015: The entire examined colon appeared normal. The terminal ileum appeared normal. Rectal exam with poor rectal tone, anal prolapse. Surgical pathology 10/18/2015: Negative for metaplasia or diagnostic abnormality. MRI pelvis MSK 06/06/2016: FINDINGS: Joint space: There is symmetric small bilateral hip joint fluid, which may be physiologic. Bones and articular cartilage: There is no fracture, bone marrow edema, or evidence of avascular necrosis. Hip joint alignment is normal. No focal cartilage defect is discerned. Tendons and bursae: There is no tendon abnormality or evidence of bursitis. Acetabular labrum: No acetabular labral tear is identified on these non- arthrogram images. Other: There is apparent diffuse urinary bladder wall thickening, which could be partly due to urinary bladder underdistention and/or neurogenic bladder. IMPRESSION No bone marrow signal abnormality or fracture. No tendon abnormality or evidence of bursitis. Symmetric small bilateral hip joint fluid, which may be physiologic. MRI lumbar spine without contrast 06/06/2016: There are disc degenerative changes and facet arthropathy at T11-12 and T12-L1. Intervertebral disc spaces in the lumbar spine are preserved in height andsignal. Facet arthropathy is seen throughout the lumbar spine, mild in extent. No aggressive marrow lesions. No pars defects. No abdominal aortic aneurysm. Conus demonstrates normal size shape and signal intensity and terminates appropriately at the T12 level. Findings at specific levels: T11-12: There is moderate canal narrowing secondary to combination of an annular bulge and facet arthropathy with some buckling of the ligamentum. Foramina are not completely visualized but appear narrowed on the right. T12-L1: Moderate central stenosis secondary to annular bulge and facet arthropathy. There is mild bilateral foraminal narrowing L1-2: There is a minimal annular bulge and facet arthropathy with very mild effacement of the ventral thecal sac. No foraminal narrowing. L2-3: Minimal bulge without canal stenosis or foraminal narrowing. L3-4: Minimal bulge without canal stenosis. Mild caudal foraminal narrowing bilaterally. L4-5: Minimal annular bulge without canal stenosis. Mild caudal foraminal narrowing bilaterally. L5-S1: Minimal bulge without effacement of the ventral thecal sac. No foraminal narrowing. IMPRESSION Degenerative changes greatest at the T11-12 and T12-L1 levels and described in detail in the body the report. MRI enterography 08/24/2015: GI tract: No dilated small or large bowel, bowel wall thickening, or mesenteric inflammation. No mucosal hyperenhancement. No evidence of Crohn's disease. The terminal ileum is visualized and is normal. The appendix is normal. No free fluid or focal fluid collection. Liver: Normal. Spleen: Normal. Kidneys/adrenal glands: Normal. Pancreas: Normal. Lymph nodes: No lymphadenopathy. Osseous structures: No marrow signal abnormality. IMPRESSION: Normal study. No evidence of Crohn's disease. CT-guided psoas muscle injection 09/17/2016: EXAMINATION: CT GUIDED INJECTION TENDON CLINICAL HISTORY: psoas muscle injection TECHNIQUE: The procedure and risks were described informed consent was obtained. Patient was prepped and draped in a sterile manner 1% lidocaine was used for local anesthesia. Using CT fluoroscopic guidance a 20-gauge spinal needle was advanced into the left iliopsoas muscle. Thereafter 8 cc of Bupivicaine were injected. COMPARISON: Lumbar spine MRI dated 06/06/2016 FINDINGS: Normal attenuation and bulk of the psoas muscles. Preprocedure and postprocedure pain was evaluatedby the attending pain physician, Dr. Robinson East IMPRESSION Successful uncomplicated diagnostic injection of the left psoas muscle with bupivacaine. Patient tofollow-up in the pain clinic. Assessment/Plan Assessment: 33 y.o. male with history of traumatic SCI, C6 sensory incomplete tetraplegia, with associated neurogenic bowel, neurogenic bladder and lower extremity spasticity. Aly has severe chronic LLQ pain and historically had difficulty with his daily bowel program taking up to several hours to perform due to discomfort and constipation. He developed a veronica-rectal abscess which increased his pain and bowel program challenges further. He is now s/p colostomy 12/19/22 with partial relief of pain as well as significant improvement in his QoL related to decreased time spent in management of his bowels. His pain improved initially following the ostomy but unfortunately he's had an increase in LLQ pain over the past few months. He has previously accepted that we may not be able to determine the etiology of his pain but is open to an outside referral to a spinal cord injury specialist for a second opinion. Prior trials of buprenorphine (Butrans and Belbuca), long-acting morphine and TD fentanyl were ineffective. He continues to tolerate high daily OME without adverse effect, though I worry that his symptoms are not responding to escalating opioid doses and that he is at high risk for adverse effect from these medications. He has responded well after 10-day trial methadone and wishes to continue this at its current dose. Finally, he continues to respond well to BoNT injections to his hip flexors and quadriceps. We willmonitor for durable response and he will return for follow-up in person on 12/08/23 for considerationof repeat injections. 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 -S/p Butrans and Belbuca trials (Butrans dose limited, Belbuca up to 750 mcg q12h with limited relief) -Continue methadone 10 mg q12h (started 01/11, refilled sent to [facility] for 30-day supply, #60) -GIh=733, repeat this week at PCPs office -Continue hydromorphone 8-12 mg every 6 hrs as needed for breakthrough pain -Continue pregabalin 150 mg TID -[place] opioid prescribing guidelines -Needs next UDS January 2025 #SCI-related spasticity -Baclofen 20 mg four times daily -Tizanidine 4 mg daily prn -Repeat BoNT-A to bilateral lower extremities q3mos (total dose= 400 units) #Neurogenic bladder #Risk of autonomic dysreflexia with bladder distension -Continue intermittent catheterization program #Opioid-induced constipation #Neurogenic bowel complicated by veronica-rectal abscess, hemorrhoids s/p colostomy -Dulcolax 1-2 tabs daily -Milk of Mg PRN Follow-up: 4 weeks telehealth, 3 months in-person for Botox Yue Dabry MD Physical Medicine & Rehabilitation documented in this encounter Plan of Treatment Upcoming Encounters Date Type Department Care Team (Late st Contact Info) Description 03/17/2024 2:00 PM EDT TH Visit (TeleHealth) [place] [address] Yue Darby MD [facility] [place] [address] 04/12/2024 11:30 AM EDT Office [place] [address] Yue Darby MD [facility] [place] [address] 04/28/2024 8:30 AM EDT TH Visit (TeleHealth) [place] [address] Yue Darby MD [facility] [place] [address] Scheduled Orders Name Type Priority Associated Diagnoses Orde r Schedule EKG 12 Lead ECG Routine Chronic left lower quadrant pain Expected: 01/27/2024, Expires: 02/20/2024 documented as of this encounter Visit Diagnoses Diagnosis Chronic left lower quadrant pain Abdominal pain, left lower quadrant documented in this encounter Care Teams Environmental Remediation Specialist Relationship Specialty Start Date End Date Donte Padgett MD [address] [place] [address] PCP - General Family Medicine 08/24/15 documented as of this encounter
--- OUTSIDE RECORDS SUMMARY | 2024-03-04 16:53 | XMS_ITS | Encounter Summary ---
Author Organization [facility] Address [facility] [place] [address] Care Team Providers Care Electronic Publishing Specialist Name Role Phone Donte Padgett MD Primary Care Provider [phone] Reason for Visit * Reason Onset Date Comments Appointment 01/25/2024 Encounter Details Date Type Department Care Team (Late st Contact Info) Description 01/25/2024 Telephone [place] [phone] Yue Jenkins MD [facility] [place] [address] Appointment Social History Tobacco Use Types Packs/Day [...] * Telephone Encounter - Torri David - 01/25/2024 2:01 PM EDT Scheduling Instructions Provider: Dr Jenkins Visit Type (paste CARLOS Instructions or manually enter): add on at 1:30 on 02/15 as a telehealth OK PER DR JENKINS Also 12 week botox around 02/29/24 for 60 minutes If EMG Visit needed list diagnosis for the EMG to be used in Decision Tree: Appt Note: Botox for 60 minutes Additional Info Needed: documented in this encounter Plan of Treatment Upcoming Encounters Date Type Department Care Team (Late st Contact Info) Description 03/17/2024 2:00 PM EDT TH Visit (TeleHealth) [place] [address] Yue Jenkins MD [facility] PALLIATIVE [place] [address] 04/12/2024 11:30 AM EDT Office [place] [phone] Yue Jenkins MD [facility] [place] [address] 04/28/2024 8:30 AM EDT TH Visit (TeleHealth) [place] [address] Yue Jenkins MD [facility] [place] [address] documented as of this encounter Visit Diagnoses Not on filedocumented in this encounter Care Teams Electronic Publishing Specialist Relationship Specialty Start Date End Date Donte Padgett MD [address] [place] [address] PCP - General Family Medicine 08/24/15 documented as of this encounter
--- OUTSIDE RECORDS SUMMARY | 2024-03-04 16:53 | XMS_ITS | Encounter Summary ---
Author Organization [facility] Address [facility] [place] [address] Care Team Providers Care School Psychologist Assistant Name Role Phone Donte Padgett MD Primary Care Provider [phone] Reason for Visit * Reason Onset Date Comments Medication Refill 01/27/2024 Encounter Details Date Type Department Care Team (Late st Contact Info) Description 01/27/2024 [place] [phone] Yue Darby MD [facility] HOSPICE AND [place] [address] Chronic left lower quadrant pain Social History [...] encounter Miscellaneous Notes * Telephone Encounter - Miranda See RN - 02/01/2024 11:38 AM EDT Prescription Renewal Request Name: Aly De La Torre : 1990 Prescription(s) Requested: Requested Prescriptions Pending Prescriptions Disp Refills methadone (Dolophine) 10 mg tablet 60 tablet 0 Sig: Take 1 tablet by mouth every 12 hours. HYDROmorphone (Dilaudid) 8 mg tablet 90 tablet 0 Sig: Take 1-1.5 tablets by mouth every 6 hours as needed for Pain. Take 1 tab for moderate pain (5-7/10). Take 1 1/2 tabs for severe pain (8-10/10). 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 -S/p Butrans and Belbuca trials (Butrans dose limited, Belbuca up to 750 mcg q12h with limited relief) -Continue methadone 10 mg q12h (started 01/11, refilled sent to [facility] for 30-day supply, #60) -PPj=567, repeat this week at PCPs office -Continue hydromorphone 8-12 mg every 6 hrs as needed for breakthrough pain -Continue pregabalin 150 mg TID -[place] opioid prescribing guidelines -Needs next UDS January 2025 Next Encounter in This Dept: Visit date not found Date of Last Refill (for each medication): 01/21/24- Methadone, 12/30-Dilaudid Status of request: Pended No Known Allergies Miranda See RN 02/01/24 11:41 AM * Telephone Encounter - Monae Abebe - 02/01/2024 10:48 AM EDT Patient was calling to check on this prescription as he has been out of medication for a few days. Please advise * Telephone Encounter - Kortney Maya - 01/27/2024 1:29 PM EDT Call Center / [place] Message Prescription Refill Request Clinical Sign Fabricator message Provider patient sees in Clinic: Dr Darby Caller and relationship (if other than patient-full name): same Call back Number: [phone] Ok to leave a message: y Any issues needing to be addressed prior to medication refill? (ex: dose increase, not at pharmacy): n Name of Med: HYDROmorphone (Dilaudid) 8 mg tablet Strength of Pills: 8 mg Dosing Directions: 1-1.5 tablets by mouth every 6 hours as needed for Pain. Take 1 tab for moderatepain (5-7/10). Take 1 1/2 tabs for severe pain (8-10/10). How Patient is Currently Taking Medication: as directed 30 or 90 Day Supply: 90 Pharmacy: [id number] - [place], [place] - [address] [place] [id number] Last Appointment: 01/21/24 Next Appointment: (IF CALL IS FROM PATIENT/FAMILY AND THERE IS NO FOLLOW UP SCHEDULED REVIEW CHART TO SEE WHEN APPOINTMENT IS NEEDED AND SCHEDULE BEFORE SENDING MESSAGE) na Is Patient out of Medication?: n documented in this encounter Plan of Treatment Upcoming Encounters Date Type Department Care Team (Late st Contact Info) Description 03/17/2024 2:00 PM EDT TH Visit (TeleHealth) [place] [address] Yue Darby MD [facility] HOSPICE AND [place] [address] 04/12/2024 11:30 AM EDT Office [place] [address] Yue Darby MD [facility] HOSPICE AND [place] [address] 04/28/2024 8:30 AM EDT TH Visit (TeleHealth) [place] [address] Yue Darby MD [facility] DR HOSPICE AND [place] [address] documented as of this encounter Visit Diagnoses Diagnosis Chronic left lower quadrant pain Abdominal pain, left lower quadrant documented in this encounter Care Teams School Psychologist Assistant Relationship Specialty Start Date End Date Donte Padgett MD [address] [place] [address] [address] [place] [address] PCP - General Family Medicine 08/24/15 documented as of this encounter
--- OUTSIDE RECORDS SUMMARY | 2024-03-04 16:54 | XMS_ITS | Encounter Summary ---
Author Organization [facility] Address [facility] [place] [address] Care Team Providers Care Marketing Production Specialist Name Role Phone Donte Padgett MD Primary Care Provider [phone] Reason for Visit * Reason Onset Date Comments Spasms 12/08/2023 Encounter Details Date Type Department Care Team (Late st Contact Info) Description 12/08/2023 Telephone [place] [phone] Yue Darby MD [facility] H[facility]PICE AND P[place]IAT[place] [address] Spasms Social History Tobacco Use Types Packs/Day Years [...] encounter Miscellaneous Notes * Telephone Encounter - Nereyda Sosa - 12/08/2023 1:36 PM EDT Please warm transfer to Nereyda for scheduling (Needs [address] Darby - ok'd to put anywhere per secure chat) * Telephone Encounter - Nereyda Sosa - 12/08/2023 1:36 PM EDT Copied from [facility] #[id number]. Topic: Specialty Dept CRMs - Appointment Needed >> Dec 08, 2023 8:27 AM Na Talbert wrote: Appt Needed Specialist Yue Darby MD Relationship (if other than patient-full name): Patient Appt. Type Needed: Other - Botox Injections Reason for Visit: Patient called to reschedule today's appointment for botox injections (see canceled appointment dated 12/08/23). Please call patient back to reschedule. * Telephone Encounter - Yue Darby MD - 12/08/2023 11:10 AM EDT Brief PM&R Telephone Encounter Aly was scheduled for Botox injections in clinic today but cancelled the appointment due to severe pain and spasms and inability to transfer to his wheelchair. I returned his call and spoke to him over the phone this morning. He is experiencing significant increase in lower extremity spasms over the past 24h in addition to an increase in his chronic abdominal pain. He recently was treated for a bladder infection and completed a course of antibiotics. His urine is clear now and he has low suspicion for infection. He did have some chills last night but does not have a thermometer to check his temperature at home. He denies having constipation--took Milkof Mg this morning just in case constipation was the issue, but his ostomy has had regular output. He hasn't been able to do a skin check but is not aware of any issues including ingrown toenails or sites of pressure. I recommended he go to his local ED to be evaluated for possible infection or other acute issue (i.e. bladder or kidney stones). He plans to call his father and may need an ambulance to get out of the house, since he is unable to transfer to his chair right now. I also spoke with the ED triage nurse at [facility] to give them a heads up that he will arriving this morning and provided them with my cell phone if they have questions. Yue Darby MD Physical Medicine & Rehabilitation Personal pager [phone] 12/08/2023 11:11 AM * Telephone Encounter - Nicolle Martinez RN - 12/08/2023 9:28 AM EDT Called Aly. Cancelled appointment today bc pain and spasms are so bad he cannot get out of bed. Yesterday morning, spasms have been uncontrollbable they've been bad in the past but yesterday andtoday they are throwing me out of the chair, usually they occur when he is attempting to move, butthese are occurring when he is just sitting in chair. Still using 100mcg fentanyl patch Taking 4-5 dilaudid daily,has not used any of prescription called in 12/03, estimates he has about 20 tablets left in prior bottle. Still taking Baclofen 20mg daily Reports no issues with constipation, is eliminating without issue. Has been able to work/get out of the house one day the last two weeks. * Telephone Encounter - Nicolle Martinez RN - 12/08/2023 9:00 AM EDT Copied from [facility] #[id number]. Topic: Specialty Dept CRMs - Triage >> Dec 08, 2023 8:28 AM Na Talbert wrote: Triage Message Specialist: Yue Darby MD Relationship (if other than patient-full name): Patient Symptom: Spasms and Stomach pain Has patient experienced symptom before: Yes If patient has experienced symptom before, when was the last time this occurred: Ongoing Is patient currently having symptom: yes When did symptom begin: Worsening started yesterday morning when patient woke up. Additional Comments: Patient called stating he has been having worsening spasms and stomach pain that started yesterday morning when he woke up. Patient stated he would like to discuss symptoms directly with Dr. Darby but stated he was okay with speaking to a nurse first. Please call patient backto discuss symptoms further. documented in this encounter Plan of Treatment Upcoming Encounters Date Type Department Care Team (Late st Contact Info) Description 03/17/2024 2:00 PM EDT TH Visit (TeleHealth) [place] [address] Yue Darby MD [facility] [address] 04/12/2024 11:30 AM EDT Office [place] [address] Yue Darby MD [facility] [place] [address] 04/28/2024 8:30 AM EDT TH Visit (TeleHealth) [place] [address] Yue Darby MD [facility] [place] [address] documented as of this encounter Visit Diagnoses Not on filedocumented in this encounter Care Teams Marketing Production Specialist Relationship Specialty Start Date End Date Donte Padgett MD [address] [facility] [address] [place] [address] PCP - General Family Medicine 08/24/15 documented as of this encounter
--- OUTSIDE RECORDS SUMMARY | 2024-03-04 16:54 | XMS_ITS | Encounter Summary ---
Author Organization [facility] Address [facility] [place] [address] Care Team Providers Care Oil And Gas Superintendent Name Role Phone Donte Padgett MD Primary Care Provider [phone] Reason for Visit * High Dollar Medication (Routine) - Closed Specialty Diagnoses / Procedures Referred By Contac t Referred To Contact Neurology Diagnoses Spasticity Procedures Abobotulinumtooxin A (Dysport) Authorization Request (IN CLINIC) TC ABOBOTULINUMTOXINA, 5 UNITS, INJ (DYSPORT) PRO CHEMODENERVATION ONE EXTREMITY 1-4 MUSCLE(S) Yue Darby MD [facility] HOSPICE AND [place] [address] Yue Darby MD [facility] HOSPICE AND [place] [address] Referral ID Status Reason Start Date Expiration Date V isits Requested Visits Authorized [id number] Closed Consult, Test & Treat 02/27/2023 02/27/2024 99 298 Encounter Details Date Type Department Care Team (Late st Contact Info) Description 09/15/2023 10:30 AM EDT Office Visit Neurology at [place] [phone] Yue Darby MD [facility] HOSPICE AND [place] [address] Constipation due to neurogenic bowel; Spasticity Social History Tobacco Use Types Packs/Day Years [...] * Patient Instructions* Yue Darby MD - 09/15/2023 10:30 AM EDT For pain: RESUME MS Contin (long-acting morphine) 30 mg tabs, take two tabs TWICE daily--take in the morning when you wake up and again at bedtime. For constipation: Add Magnesium oxide 800 mg (two tablets) at bedtime. You could also try other ggfi-igr-gtsziqk magnesium supplements for you bowels. 2. Continue to take dulcolax 1 tab in the morning, 1 tab in the evening (as you have been). If constipated, can increase 2 tabs in the morning. 3. If you can, try to save Milk of Mg as a back-up for if the above doesn't work. BOTULINUM TOXIN INJECTIONS DISCHARGE INSTRUCTIONS If this is your first injection, plan to keep your activity light for the next [address] or work if you feel up to it. Do not avoid use of the muscles or areas of the body that were injected - using the muscles helps the absorption of the medication and will make the injection more effective. On the other hand, do not use the muscles excessively. You may follow your usual diet. Avoid ice to the injection are for 24 hours. You may use heat if it is helpful. You may use acetaminophen (Tylenol), ibuprofen (Advil) or Naprosyn (Aleve) for pain at the injection site or for muscle aching. Keep any bandage or dressing on the injection site for 24 hours. Call our office if you experience any of the following: Signs of infection at the injection site such as redness, warmth, swelling, excessive pain, drainage Unexpected muscle weakness Call 9--1 if you have difficulty with swallowing or breathing Call the Neurology/Physiatry office at [phone] if you have any questions or concerns. A nurse is available Thursday through Thursday 8:00 am to 4:30 pm. documented in this encounter Progress Notes * Yue Darby MD - 09/15/2023 10:30 AM EDT Brief Physical Medicine and Rehabilitation Follow-up Aly wrote last week to tell me he was having more abdominal pain and was having a difficult time getting out of the house. His pain is better this week, as are his spasms. 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 He is using opioids appropriately and has not requested early refills. On average he uses 4-4.5 tabs of hydromorphone 8 mg per day. He stopped the MS Contin last week because he did not see that it was helping and was causing his constipation to be worse. However, he is interested in continuing a long-acting opioid to avoid the highs/lows that the Dilaudid cause as long as his bowels cooperate. His pain level today is a 7/10 and he last took hydromorphone 3 hrs ago. Level never gets lower than a 7 but does get higher, last week he had two days of pain 9/10. For his bowels, he typically uses Dulcolax 5 mg po tabs, 1 tab at night and 1 tab in the morning. If he doesn't have a BM he increases to 2 tabs in the morning. If this doesn't work, he uses Milk of Mg which usually cleans him out within 30 min. He had to use Milk of Mg several times last week. He continues to meet with Aurelia Mayfield for short-term CBT and is finding these sessions to be helpful. OPIOID MANAGEMENT: Substance Use History: none Therapeutic Cannabis: recreational use only Opioid Treatment Agreement: completed 03/14/2022 Current Risk Stratification: low Comments about ORT R in relation to this patient: Mother with long-standing mental illness, unclearSUD history; age 16-45; no personal history of substance abuse of psychologic disease Naloxone prescribed: yes OK for early refill? yes UDS: 01/30/2023 as expected (repeat yearly) PDMP reviewed: yes, 08/21/2023 MEDD: 144 (previously was getting 90 OME with MS Contin) Pill Count: Instructed him to count when he goes home tonight I have counseled Aly De La Torre about the safe use of opioids including dosing, side effects, safestorage and disposal. They know to contact the clinic if he has questions related to pain medication use. He has been advised that the concurrent use of benzodiazepines and opioids can increase the risk ofoversedation and possibly respiratory depression. Plan: For pain: -RESUME MS Contin 30 mg (long-acting morphine), take two tabs TWICE daily -He was instructed to reach out to me at the end of the week to let me know how things are going re: pain and bowels, we will consider increasing MS Contin at that time -Continue hydromorphone 8 mg 1-1.5 mg tabs q8h as needed for pain unrelieved by the above -Continue gabapentin 800 mg qam, 1200 mg qpm, 800 mg qhs For constipation/neurogenic bowel: -Add Magnesium oxide 400 mg chewable tabs, take two tablets po nightly. -Continue to take Dulcolax 1 tab in the morning, 1 tab in the evening. If constipated, can increase2 tabs in the morning. -[place] Milk of Mg suspension as a back-up for if the above doesn't work. He is also open to a referral elsewhere to a spinal cord injury specialist to ensure that we are not overlooking anything that could be causing his pain. I will reach out to Physiatry colleagues and [place] to see if they will be willing to do a one-time consult. Yue Darby MD Physical Medicine & Rehabilitation This separate visit was above and beyond the procedure performed and is exclusive of the time spentperforming the procedure(s) The following services were provided: [] Review prognosis and diagnosis [] Independent review of radiology images and/or 3+ labs [] Ordering of test(s) [] Referring to other providers [x] Medication management * Yue Darby MD - 09/15/2023 10:30 AM EDTSummary: Procedure Note Physical Medicine & Rehabilitation [place] Procedure Note ID: Aly De La Torre is a 33 y.o. right-handed male with history of C6 sensory incomplete spinal cord injury, resulting tetraplegia, neurogenic bowel and neurogenic bladder with five-year history of left lower quadrant pain of unclear etiology. Indication for botulinum toxin: SCI-related spasticity Last injected: 06/16/2024 Interval history: Aly had excellent relief of his spasms following toxin injections in June, however the effect seemed to have worn off last week when his pain was also really bad. Now that pain is better controlled, he has felt that spasms are better controlled again. He hasn't had spasms for the past three days. Baseline exam: Tone: Modified Minnie Scale (MAS) Shoulder add Elbow flex Elbow ex Pronators Wrist ext Wrist fle FDS FDP Thumb flex Thumb add HF HE Hip Add KF KE DF PF FHL FHL RUE 0 1 1 1 1 0 0 0 0 0 RLE 2 NT 1 2 2 2 3 NT NT LUE 0 1 1 1 1 0 0 0 0 0 LLE 2 NT 1 2 2 2 3 NT NT Diffuse spasms triggered by truncal extension, including in the abdomen, hip flexors, knee extensors and flexors, plantarflexors Procedure: Consent was obtained and a time-out was conducted just prior to the start of the procedure to verify the correct: patient, procedure, procedure location, and all relevant critical information. Each injection site was sterilized with 70% isopropyl alcohol. OnabotulinumtoxinA was reconstitutedwith 0.9% NaCl to create a dilution of 50 units per 0.1mL. Injections were administered with a 27 gauge, 1 needle. EMG guidance was used to optimize localization of botulinum toxin injections into af fected muscles. # of units administered in the following muscles: Right Left Right Left Deltoid Rectus femoris 50 50 Pectoralis major Vastus lateralis 25 25 Biceps brachii Vastus medialis 25 25 Brachioradialis Vastus intermedius 25 25 Pronator teres Iliopsoas 50 50 Flexor carpi radialis Flexor carpi ulnaris External oblique (abd) 50 Flexor digitorum profundus Flexor digitorum superficialis Total units used: 400. Total units wasted: 0. The patient tolerated the procedure without any immediate complications. He will follow-up in 4 weeks via telehealth to assess response to injections and again in person in12 weeks for consideration of repeat injections. Yue Darby MD Physical Medicine & Rehabilitation Department of Neurology documented in this encounter Plan of Treatment Upcoming Encounters Date Type Department Care Team (Late st Contact Info) Description 03/17/2024 2:00 PM EDT TH Visit (TeleHealth) [place] [address] Yue Darby MD [facility] DR HOSPICE AND [place] [address] 04/12/2024 11:30 AM EDT [place] [address] Yue Darby MD [facility] DR HOSPICE [facility] [place] [address] 04/28/2024 8:30 AM EDT TH Visit (TeleHealth) [place] [address] Yue Darby MD [facility] DR HOSPICE [facility] [place] [address] documented as of this encounter Visit Diagnoses Diagnosis Constipation due to neurogenic bowel Spasticity Abnormal involuntary movements documented in this encounter Administered Medications Inactive Administered Medications - up to 3 most recent administrations Medication Order MAR Action Action Date Dose Rate Site botulinum toxin type A (Botox) injection 400 Units 400 Units, Intramuscular, ONCE, 1 dose, On Thu09/15/23 at 1215, Routine Given 09/15/2023 11:59 AM EDT 400 Units documented in this encounter Care Teams Oil And Gas Superintendent Relationship Specialty Start Date End Date Donte Padgett MD [address] [place] [address] [address] [facility] 1 [place] [address] PCP - General Family Medicine 08/24/15 documented as of this encounter
--- OUTSIDE RECORDS SUMMARY | 2024-03-04 16:54 | XMS_ITS | Encounter Summary ---
Author Organization [facility] [place] Address [facility] [place] [address] Care Team Providers Care Hospice Chaplain Name Role Phone Donte Padgett MD Primary Care Provider +1 [phone] Reason for Visit * Reason Onset Date Comments Other 06/04/2023 insurance Encounter Details Date Type Department Care Team (Late st Contact Info) Description 06/04/2023 [place] [address] Yue Darby MD [facility] AND [place] [address] Other (insurance) Social History Tobacco Use Types Packs/Day Years [...] encounter Miscellaneous Notes * Telephone Encounter - Heena Long - 06/08/2023 8:46 AM EST Please warm transfer to [place] [employer] still showing inactive. * Telephone Encounter - Heena Long - 06/04/2023 12:03 PM EST Please warm transfer to [facility] current insurance card/information. documented in this encounter Plan of Treatment Upcoming Encounters Date Type Department Care Team (Late st Contact Info) Description 03/17/2024 2:00 PM EDT TH Visit (TeleHealth) [place] [address] Yue Darby MD [facility] HOSPICE AND [place] [address] 04/12/2024 11:30 AM EDT Office [place] [phone] Yue Darby MD [facility] HOSPICE AND [place] [address] 04/28/2024 8:30 AM EDT TH Visit (TeleHealth) [place] [address] Yue Darby MD [facility] HOSPICE AND [place] [address] documented as of this encounter Visit Diagnoses Not on filedocumented in this encounter Care Teams Hospice Chaplain Relationship Specialty Start Date End Date Donte Padgett MD [address] [place] [address] PCP - General Family Medicine 08/24/15 documented as of this encounter
--- OUTSIDE RECORDS SUMMARY | 2024-03-04 16:54 | XMS_ITS | Encounter Summary ---
Author Organization [facility] Address [facility] [place] [address] Care Team Providers Care Senior Sales Engineer Name Role Phone Donte Padgett MD Primary Care Provider [phone] [phone] Reason for Visit * Reason Onset Date Comments Medication Refill 12/23/2023 Encounter Details Date Type Department Care Team (Late st Contact Info) Description 12/23/2023 [place] [phone] Yue Darby MD [facility] [address] HOSPICE AND [place] [address] Spasticity; Neuropathic pain of both legs Social History Tobacco Use Types Packs/Day Years [...] encounter Miscellaneous Notes * Telephone Encounter - Pricila Brooks - 12/23/2023 11:39 AM EDT Call Center / Surgical Dental Assistant Message Prescription Refill Request Clinical Surgical Dental Assistant message Provider patient sees in Clinic: Wilner Caller and relationship (if other than patient-full name): Aly De La Torre Call back Number: [phone] Ok to leave a message: yes Any issues needing to be addressed prior to medication refill? (ex: dose increase, not at pharmacy): out of medications 1)Name of Med: tiZANidine (Zanaflex) 4 mg tablet Strength of Pills: 4mg Dosing Directions: Take 1 tablet by mouth daily as needed (spasms). 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 spinal disease 2)Name of Med: pregabalin (Lyrica) 150 mg capsule Strength of Pills: 150mg Dosing Directions: Take 1 capsule by mouth 3 times daily How Patient is Currently Taking Medication: Patient taking medication as prescribed 30 or 90 Day Supply: 30 days Pharmacy: [id number] [place], [place] Last Appointment: 11/12/23 Next Appointment: (IF CALL IS FROM PATIENT/FAMILY AND THERE IS NO FOLLOW UP SCHEDULED REVIEW CHART TO SEE WHEN APPOINTMENT IS NEEDED AND SCHEDULE BEFORE SENDING MESSAGE) 01/08/24 Is Patient out of Medication?: yes documented in this encounter Plan of Treatment Upcoming Encounters Date Type Department Care Team (Late st Contact Info) Description 03/17/2024 2:00 PM EDT TH Visit (TeleHealth) [place] [address] Yue Darby MD [facility] DR HOSPICE AND [place] [address] 04/12/2024 11:30 AM EDT [place] [address] Yue Darby MD [facility] DR HOSPICE AND [place] [address] 04/28/2024 8:30 AM EDT TH Visit (TeleHealth) [place] [address] Yue Darby MD [facility] HOSPICE AND [place] [address] documented as of this encounter Visit Diagnoses Diagnosis Spasticity Abnormal involuntary movements Neuropathic pain of both legs Mononeuritis of lower limb, unspecified documented in this encounter Care Teams Senior Sales Engineer Relationship Specialty Start Date End Date Donte Padgett MD [address] [place] [address] PCP - General Family Medicine 08/24/15 documented as of this encounter
--- OUTSIDE RECORDS SUMMARY | 2024-03-04 16:54 | XMS_ITS | Encounter Summary ---
Author Organization [facility] Address [facility] [place] [address] Care Team Providers Care Armature Bander Name Role Phone Donte Padgett MD Primary Care Provider [phone] [phone] Reason for Visit * Reason Onset Date Comments Medication Refill 11/06/2023 Encounter Details Date Type Department Care Team (Late st Contact Info) Description 11/06/2023 [place] [phone] Yue Darby MD [facility] HOSPICE AND [place] [address] Spasticity Social History Tobacco Use Types Packs/Day [...] encounter Miscellaneous Notes * Telephone Encounter - JasperAnn Marie CMA - 11/06/2023 2:29 PM EDT Prescription Renewal Request Name: Aly De La Torre : 1990 Prescription(s) Requested: Requested Prescriptions Pending Prescriptions Disp Refills baclofen (Lioresal) 20 mg tablet 120 tablet 0 Sig: Take 1 tablet by mouth 4 times daily. Date of Encounter last in This Dept (If need an appointment send to secretaries to schedule): 07/24/2023 with Yue Darby MD Next Encounter in This Dept: 11/12/2023 with Yue Darby MD Date of Last Refill (for each medication): 10/19/2023, 60:0 Authorized By: Francis Gallegos MD Status of request: Pended No Known Allergies Ann Marie Mccrary CMA 11/06/23 2:29 PM * Telephone Encounter - Pricila Brooks - 11/06/2023 10:49 AM EDT Call Center / Printing Supplies Sales Representative Message Prescription Refill Request Clinical [place] message Provider patient sees in Clinic: Wilner Caller and relationship (if other than patient-full name): Aly De La Torre Call back Number: [phone] Ok to leave a message: yes Any issues needing to be addressed prior to medication refill? (ex: dose increase, not at pharmacy): last refill was for lesser amount by covering provider Name of Med: baclofen (Lioresal) 20 mg tablet Strength of Pills: 20mg Dosing Directions: Take 1 tablet by mouth 4 times daily How Patient is Currently Taking Medication: Patient taking medication as prescribed 30 or 90 Day Supply: 30 days Pharmacy: [id number] [place], [place] Last Appointment: 09/15/23 Next Appointment: (IF CALL IS FROM PATIENT/FAMILY AND THERE IS NO FOLLOW UP SCHEDULED REVIEW CHART TO SEE WHEN APPOINTMENT IS NEEDED AND SCHEDULE BEFORE SENDING MESSAGE) 11/12/23 Is Patient out of Medication?: yes, out of medication documented in this encounter Plan of Treatment Upcoming Encounters Date Type Department Care Team (Late st Contact Info) Description 03/17/2024 2:00 PM EDT TH Visit (TeleHealth) [place] [address] Yue Darby MD [facility] DR HOSPICE AND [place] [address] 04/12/2024 11:30 AM EDT [place] [address] Yue Darby MD [facility] HOSPICE AND [place] [address] 04/28/2024 8:30 AM EDT TH Visit (TeleHealth) [place] [phone] Yue Darby MD [facility] HOSPICE AND [place] [address] documented as of this encounter Visit Diagnoses Diagnosis Spasticity Abnormal involuntary movements documented in this encounter Care Teams Armature Bander Relationship Specialty Start Date End Date Donte Padgett MD [address] [place] [address] PCP - General Family Medicine 08/24/15 documented as of this encounter
--- OUTSIDE RECORDS SUMMARY | 2024-03-04 16:54 | XMS_ITS | Encounter Summary ---
Author Organization [facility] Address [facility] [place] [address] Care Team Providers Care Logging Worker Name Role Phone Donte Padgett MD Primary Care Provider [phone] [phone] Reason for Visit * Reason Onset Date Comments Medication Change/management 08/05/2023 Encounter Details Date Type Department Care Team (Late st Contact Info) Description 08/05/2023 [place] [phone] Yue Darby MD [facility] HOSPICE AND P[place]IAT[place] [address] Medication Change/management Social History Tobacco Use Types Packs/Day Years [...] encounter Miscellaneous Notes * Telephone Encounter - Vanda Gutierrez RN - 08/05/2023 4:25 PM EST Copied from [facility] #[id number]. Topic: Specialty Dept CRMs - Generic Call >> Aug 05, 2023 4:03 PM Rayna Curry wrote: 9:00 Specialist: Yue Darby MD Relationship (if other than patient-full name): self Reason for Call: Patient returning call from provider on 08/04/2023 to discuss recent increase in hydromorphone. Best time to call is between 9:00 a.m - 12:30 p.m. documented in this encounter Plan of Treatment Upcoming Encounters Date Type Department Care Team (Late st Contact Info) Description 03/17/2024 2:00 PM EDT TH Visit (TeleHealth) [place] [address] Yue Darby MD [facility] DR HOSPICE AND P[place]IAT[place] [address] 04/12/2024 11:30 AM EDT [place] [address] Yue Darby MD [facility] DR HOSPICE AND P[place]IAT[place] [address] 04/28/2024 8:30 AM EDT TH Visit (TeleHealth) [place] [address] Yue Darby MD [facility] DR HOSPICE AND PALLIATIVE [place] [address] documented as of this encounter Visit Diagnoses Not on filedocumented in this encounter Care Teams Logging Worker Relationship Specialty Start Date End Date Donte Padgett MD [address] [facility] [place] [address] PCP - General Family Medicine 08/24/15 documented as of this encounter
--- OUTSIDE RECORDS SUMMARY | 2024-03-04 16:54 | XMS_ITS | Encounter Summary ---
Author Organization [facility] Address [facility] [place] [address] Care Team Providers Care Thread Separator Name Role Phone Donte Padgett MD Primary Care Provider [phone] [phone] Reason for Visit * Reason Onset Date Comments Medication Problem 10/01/2023 Encounter Details Date Type Department Care Team (Late st Contact Info) Description 10/01/2023 [place] [phone] Yue Darby MD [facility] HOSPICE [place] [address] Medication Problem Social History Tobacco Use Types Packs/Day Years [...] encounter Miscellaneous Notes * Telephone Encounter - Nicolle Martinez RN - 10/01/2023 1:15 PM EDT Called Aly. Reviewed phone call note with Dr. Darby from 09/23. Plan was to stop MS Contin 100mg and return topharmacy. He was to trial 60mg MS Contin using 30mg tabs he had at home. Per patient, it was discussed that he may have been reacting to MS Contin because it was increased too quickly, and he was to try 60mg and then increase up to 100mg. Pharmacy is not dispensing hydromorphone because most recent rx indicates he is to bring in 100mg MS Contin for disposal. This has not happened, and pt told pharmacy he is taking 100mg MS Contin. * Telephone Encounter - Miranda See RN - 10/01/2023 9:48 AM EDT Copied from CRM #[id number]. Topic: Specialty Dept CRMs - Medication Issues >> Sep 30, 2023 4:55 PM July Gutiérrez wrote: Medication Issues Specialist Dr. Yue Darby Relationship (if other than patient-full name): Beulah-Pharmacist Reason for call: Medication Issue (if symptom based used Triage Subtopic) Message/information for the nurse: clarification Name of Medication: HYDROmorphone (Dilaudid) 8 mg tablet .Issue with the medication: Beulah called and states she received a prescription for Dilaudid and states patient is not taking MS Contin but after speaking with the patient the patient states they arecurrently taking MS Contin 100mg. Please call to further discuss. documented in this encounter Plan of Treatment Upcoming Encounters Date Type Department Care Team (Late st Contact Info) Description 03/17/2024 2:00 PM EDT TH Visit (TeleHealth) [place] [address] Yue Darby MD [facility] HOSPICE [place] [address] 04/12/2024 11:30 AM EDT [place] [address] Yue Darby MD [facility] HOSPICE [place] [address] 04/28/2024 8:30 AM EDT TH Visit (TeleHealth) [place] [address] Yue Darby MD [facility] DR HOSPICE [place] [address] documented as of this encounter Visit Diagnoses Not on filedocumented in this encounter Care Teams Thread Separator Relationship Specialty Start Date End Date Donte Padgett MD [address] [place] [address] [address] [facility] [place] [address] PCP - General Family Medicine 08/24/15 documented as of this encounter
--- OUTSIDE RECORDS SUMMARY | 2024-03-04 16:54 | XMS_ITS | Encounter Summary ---
Author Organization [facility] Address [facility] [place] [address] Care Team Providers Care Bulb Sorter Name Role Phone Donte Padgett MD Primary Care Provider [phone] [phone] Encounter Details Date Type Department Care Team (Late st Contact Info) Description 08/21/2023 [place] [phone] Yue Darby MD [facility] HOSPICE AND PALLIAT[place] [address] Social History Tobacco Use Types Packs/Day Years [...] encounter Miscellaneous Notes * Telephone Encounter - Yue Darby MD - 08/21/2023 11:11 AM EST Brief Physiatry Encounter Patient reached over the phone to discuss plan for opioids. Started MS Contin 30 mg q12h two weeks ago. Hasn't noticed a significant improvemet in his chronic LLQ pain. Continues to take hydromorphone 8-12 mg 2-3 times daily. Has had a few really bad days when he hasn't felt well enough to go to work. Is getting out when he feels well enough to do so. Moving bowels daily, sometimes takes Milk of Mg at end of day if hasn't had ostomy output. Plan: -Increase MS Contin 30 mg from BID to TID -Continue hydromorphone 8-12 mg TID prn for breakthrough (work toward weaning, otherwise would consider switch to MS IR down the road) -Gabapentin 400 mg TID -[place] opioid prescribing guidelines OPIOID MANAGEMENT: Substance Use History: none Therapeutic [...] (repeat yearly) PDMP reviewed: yes, 08/21/2023 MEDD: Pill Count: Has 3 tabs left of MS Contin, a lot of hydromorphone I have counseled Aly De La Torre about the safe use of opioids including dosing, side effects, safestorage and disposal. They know to contact the clinic if he has questions related to pain medication use. They have been advised that the concurrent use of benzodiazepines and opioids can increase the riskof oversedation and possibly respiratory depression. Yue Darby MD [facility] Personal pager [phone] 08/21/2023 11:11 AM documented in this encounter Plan of Treatment Upcoming Encounters Date Type Department Care Team (Late st Contact Info) Description 03/17/2024 2:00 PM EDT TH Visit (TeleHealth) [place] [address] Yue Darby MD [facility] HOSPICE AND P[place]IAT[place] [address] 04/12/2024 11:30 AM EDT [place] [address] Yue Darby MD [facility] HOSPICE AND P[place]IAT[place] [address] 04/28/2024 8:30 AM EDT TH Visit (TeleHealth) [place] [address] Yue Darby MD [facility] HOSPICE AND P[place]IAT[place] [address] documented as of this encounter Visit Diagnoses Diagnosis Chronic left lower quadrant pain Abdominal pain, left lower quadrant documented in this encounter Care Teams Bulb Sorter Relationship Specialty Start Date End Date Donte Padgett MD [address] [place] [address] PCP - General Family Medicine 08/24/15 documented as of this encounter
--- OUTSIDE RECORDS SUMMARY | 2024-03-04 16:54 | XMS_ITS | Encounter Summary ---
Author Organization [facility] Address [facility] [place] [address] Care Team Providers Care Dog Licenser Name Role Phone Donte Padgett MD Primary Care Provider [phone] [phone] Reason for Visit * Reason Onset Date Comments Medication Refill 12/16/2023 Encounter Details Date Type Department Care Team (Late st Contact Info) Description 12/16/2023 [place] [address] Yue Darby MD [facility] HOSPICE [place] [address] Chronic left lower quadrant pain Social History [...] Miscellaneous Notes * Telephone Encounter - Nicolle Martinez, RN - 12/16/2023 2:34 PM EDT Spoke with Aly - he did not end up going to ER- had a baseball game for work he couldn't miss, meant to go after, but was too tired. Woke up next day feeling better, was doing much better the following day. Today he states he is doing ok. He is at baseline mobility, able to transfer to chair. Elimination patterns at baseline, denies fever/chills. Concerned he cannot get in until 01/07 for botox, he thought he'd be able to get in sooner- asking about getting in earlier for this. * Telephone Encounter - Francisca Ratliff - 12/16/2023 1:12 PM EDT Call Center / [place] Message Prescription Refill Request Clinical Software Programmer message Provider patient sees in Clinic: Wilner Caller and relationship (if other than patient-full name): Aly Ohara Call back Number: [phone] Ok to leave a message: Yes Any issues needing to be addressed prior to medication refill? (ex: dose increase, not at pharmacy): States he was only given a bridge script to hold him over until his next appointment on 12/07 but had to reschedule due to symptoms. He is hoping more can be called in to hold him over to the next opening on . Name of Med: fentaNYL (Duragesic) 100 mcg/hr Patch 72 hr Strength of Pills: 100 mcg/hr Patch 72 hr Dosing Directions: Change 1 patch on the skin every 3 days. How Patient is Currently Taking Medication: As Prescribed 30 or 90 Day Supply: 30 Pharmacy: [facility] [place], [place] Last Appointment: 11/12/23 Next Appointment: (IF CALL IS FROM PATIENT/FAMILY AND THERE IS NO FOLLOW UP SCHEDULED REVIEW CHART TO SEE WHEN APPOINTMENT IS NEEDED AND SCHEDULE BEFORE SENDING MESSAGE) 01/08/24 Is Patient out of Medication?: Will need to change patch tomorrow and does not have anymore. documented in this encounter Plan of Treatment Upcoming Encounters Date Type Department Care Team (Late st Contact Info) Description 03/17/2024 2:00 PM EDT TH Visit (TeleHealth) [place] [address] Yue Darby MD [facility] DR HOSPICE [place] [address] 04/12/2024 11:30 AM EDT [place] [address] Yue Darby MD [facility] DR HOSPICE [place] [address] 04/28/2024 8:30 AM EDT TH Visit (TeleHealth) [place] [address] Yue Darby MD [facility] HOSPICE AND [place] [address] documented as of this encounter Visit Diagnoses Diagnosis Chronic left lower quadrant pain Abdominal pain, left lower quadrant documented in this encounter Care Teams Dog Licenser Relationship Specialty Start Date End Date Donte Padgett MD [address] [place] [address] PCP - General Family Medicine 08/24/15 documented as of this encounter
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
--- OUTSIDE RECORDS SUMMARY | 2024-03-04 16:54 | XMS_ITS | Encounter Summary ---
Author Organization [facility] Address [facility] [place] [address] Care Team Providers Care Dietary Manager Name Role Phone Donte Padgett MD Primary Care Provider [phone] Reason for Visit * High Dollar Medication (Routine) - Closed Specialty Diagnoses / Procedures Referred By Contac t Referred To Contact Neurology Diagnoses Spasticity Procedures Abobotulinumtooxin A (Dysport) Authorization Request (IN CLINIC) TC ABOBOTULINUMTOXINA, 5 UNITS, INJ (DYSPORT) PRO CHEMODENERVATION ONE EXTREMITY 1-4 MUSCLE(S) Yue Darby MD [facility] HOSPICE [place] [address] [facility] HOSPICE [place] [address] Referral ID Status Reason Start Date Expiration Date V isits Requested Visits Authorized [id number] Closed Consult, Test & Treat 02/27/2023 02/27/2024 99 [phone] Encounter Details Date Type Department Care Team (Late st Contact Info) Description 01/08/2024 11:00 AM EDT Office Visit Neurology at [place] [phone] [facility] HOSPICE AND [place] [address] Chronic left lower quadrant pain; Spasticity Social History Tobacco Use Types Packs/Day [...] * Patient Instructions* Yue Darby MD - 01/08/2024 11:00 AM EDT We are considering starting methadone in place of your fentanyl You had an EKG today. Once you pharmacy picking tech the methadone, REMOVE the fentanyl patch the night before you start the methadone. Take methadone first thing in the morning when you wake up. If you still need something for pain anhour or two afterwards, it is okay to take the Dilaudid. BOTULINUM TOXIN INJECTIONS DISCHARGE INSTRUCTIONS If this [...] usual diet. Avoid ice to the injection area for 24 hours. You may use heat [...] excessive pain, drainage Unexpected muscle weakness Call 9-1-1 if you have difficulty with swallowing or breathing Call the Neurology/Physiatry office at [phone] if you have any questions or concerns. A nurse is available Thursday through Thursday 8:00 am to 4:30 pm. documented in this encounter Progress Notes * Yue Darby MD - 01/08/2024 11:00 AM EDT Rehabilitation Medicine Follow-up Note Referring [...] unclear etiology. History provided by: patient A telephone visit was made in lieu of an in-person office visit for this appointment. Patient verbally consents to this visit and understands that this visit may be billed, similar to a clinic officevisit. Aly was not able to connect to today's scheduled video visit so we spoke over the phone instead. Subjective Interval History: Since last seen by me on 11/12/23 Aly has been having a tough time [...] from school and plans to return to PT and has access to their gym whenever he feels like it. Is hopeful that getting back in shape will help--remembers that he was in [facility] when he still lived in [place] after his SCI and felt better because of it. is coming up on 5 yrs old and feels like he is due for a replacement. Because his chair is customized he had to pay out of pocket last time. The expenses were covered by a local charitable organization. 11/12/23 Last seen by me via telehealth [...] not discuss. 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 Enjoys hunting but has only been able to go once this season due to pain. Substance use: Prior medical MJ, none currently. On chart review I also see that he is 1/2 ppd smoker. Functional History: Prior functional status: Independent with [...] ENDOSCOPY performed by Lance Pandya MD at [facility] ENDOSCOPY PRO COLONOSCOPY, DIAGNOSTIC N/A 10/18/2015 COLONOSCOPY, DIAGNOSTIC performed by Seth Yeh MD at [facility] ENDOSCOPY PRO INJECTION ANES AGENT &/ STEROID ILIOINGUINAL IH NERVES Left 11/27/2021 INJECTION ANESTHETIC, ILIOINGUINAL, ILIOHYPOGASTRIC (WRVU 1.75) performed by Mika East MD Replaced by [facility] PAIN MGMT MSO PRO UPPER GI ENDOSCOPY, BIOPSY N/A 10/18/2015 EGD WITH BIOPSY performed by Seth Yeh MD at [facility] ENDOSCOPY Medications: Current Outpatient Medications on File Prior to Visit Medication Sig Dispense Refill HYDROmorphone (Dilaudid) 8 mg tablet Take 1-1.5 [...] mouth 3 times daily. 90 capsule 3 fentaNYL (Duragesic) 100 mcg/hr Patch 72 hr Change 1 patch on the skin every 3 days. 9 patch 0 baclofen (Lioresal) 20 mg tablet Take 1 tablet by mouth 4 times daily. 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 MSK: Per HPI Psych: +depressed, worried about missing work days Neuro: Per HPI Objective Gen: young man seated comfortably in MWC, NAD HEENT: normocephalic, mucous membranes moist, sclera anicteric, pupils equal Resp: breathing comfortably on room air, no use of accessory muscles CV: no peripheral edema Abd: soft, distended due to loss of abdominal tone, TTP in focal area of LLQ, no radiation, no palpable mass or hernia, normoactive BS x4 Neuro: awake, alert, face symmetric, speech fluent, follows single step and complex commands, C6 sensory level with sensation diminished to LT and decreased discrimination between LT and PP from C7 and below bilaterally, self-limited b/l LE flexion spasms noted when transfers from WC to exam table Strength: ShAb EF EE WE ADM HF HE KF KE DF PF EHL RUE 5/5 5/5 2/5 5/5 0/5 RLE 0/5 0/5 0/5 0/5 0/5 0/5 0/5 LUE 5/5 5/5 2/5 5/5 0/5 LLE 0/5 0/5 0/5 0/5 0/5 0/5 0/5 *Pain limited ^Spasticity interfering ~Giveway weakness MSK: Increased thoracolumbar kyphosis and posterior pelvic tilt when seated. Transfers from to exam table using slide board with minimal assistance to lift legs. WC appears to fit well and seat cushion is in tact. No swelling or deformity of the b/l UE or LEs. R hip and knee PROM is full and pain-free on flexion, extension, abd/adduction and internal/external rotation. Passive L hip flexion causes increased pain in LLQ; L hip PROM is limited in external rotation, abduction. No TTP of b/l greater trochanters. Skin: no evidence of skin breakdown on affected limbs Psych: conversant, pleasant affect, good eye contact Data Review UDS 01/08/2024 + cannabinoids, opiates, fentanyl (confirmation pending) EKG 01/08/2024 Qtc 357 Imaging: The below studies were personally reviewed. Results have previously been discussed with patient. MRI angiogram abd wwo contrast 06/05/2022: FINDINGS: Vasculature: Abdominal aorta: Normal. Celiac axis: Variant anatomy with the splenic artery, common hepatic artery, and left gastric artery having independent origins from the aorta. 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 SMA: Normal. Normal aortomesenteric angle measuring [...] thoracic spine 10/28/2021: FINDINGS: Evaluation of the eviction specialist view shows previous cervical fusion at the [...] neurogenic bladder and lower extremity spasticity. Aly historically has had severe chronic LLQ pain and difficulty with his daily bowel program taking [...] LLQ pain over the past few months. Today his pain remains poorly controlled. Prior trials of buprenorphine (Butrans and Belbuca) were ineffective. He is having limited relieffrom hydromorphone and recent addition of fentanyl TD. He continues to tolerate high daily OME without adverse effect, though I worry that his symptoms are not responding to escalating opioid doses and that he is at high risk for adverse effect from these medications. We will transition to methadone today which may have the added benefit of helping with neuropathic pain. He has previously accepted that we may not be able to determine the etiology of his pain but is open to an outside referral to a spinal cord injury specialist for a second opinion. I have previously placed a referral to [facility] but he has not heard back from them. Will try again today. Finally, he's had good response from his initial trial of BoNT injections and is open to continuingthese today. We will monitor for durable response and he will return for follow-up in person on 12/08/23 for consideration of repeat injections. 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 -S/p Butrans and Belbuca trials (Butrans dose limited, Belbuca up to 750 mcg q12h with limited relief) -STOP fentanyl -EKG today with Ltt=914 -Start methadone 10 mg q12h (Rx sent to [facility] today for 14-day supply, #28 tabs) -Continue hydromorphone 8-12 mg every 6 hrs as needed -Continue pregabalin 150 mg TID -[place] opioid prescribing guidelines -Needs UDS January 2025 #SCI-related spasticity -Baclofen 20 mg four times daily -Tizanidine 4 mg daily prn, using when he gets up in the morning -Plan for chemodenervation with botulinum toxinA to bilateral lower extremities today (total anticipated dose= 400 units) -Return for Botox injections 3 months #Neurogenic bladder #Risk of autonomic dysreflexia with bladder distension #Lower extremity swelling -Trial compression stockings with zippers -Continue intermittent catheterization program #Opioid-induced constipation #Neurogenic bowel complicated by veronica-rectal abscess, hemorrhoids s/p colostomy -Dulcolax 1-2 tabs daily -Milk of Mg PRN Follow-up: 2 and 6 weeks telehealth, 3 months in-person for Botox Yue Darby MD Physical Medicine & Rehabilitation * Yue Darby MD - 01/08/2024 11:00 AM EDT Physical Medicine & Rehabilitation Chemodenervation Procedure Note ID: Aly De La Torre is a 33 y.o. right-handed male with history of C6 sensory incomplete spinal cord injury, resulting tetraplegia, neurogenic bowel and neurogenic bladder with five-year history of left lower quadrant pain of unclear etiology. Indication for botulinum toxin: SCI-related spasticity Last injected: 09/15/2023 (16 weeks) Interval history: cycling through 2 bad days, 1 good day of pain Starting PT again next week in [place]. Was going twice per week last year. Aly had excellentrelief of his spasms following toxin injections in June, however the effect seemed to have wornoff last week when his pain was also really bad. Now that pain is better controlled, he has felt that spasms are better controlled again. He hasn't had spasms for the past three days. Sitting lower would help him sit back Baseline exam: Tone: Modified Minnie Scale (MAS) [...] Vastus intermedius 25 25 Pronator teres Iliopsoas 75 75 Flexor carpi radialis Flexor carpi ulnaris External oblique (abd) deferred Flexor digitorum profundus Flexor digitorum superficialis Total units used: 400. Total units wasted: 0. The patient tolerated the procedure without any immediate complications. He will follow-up in 6 weeks via telehealth to assess response to injections and again in person in12 weeks for consideration of repeat injections. Yue Darby MD Physical Medicine & Rehabilitation Department of Neurology documented in this encounter Plan of Treatment Upcoming Encounters Date Type Department Care Team ([place] Contact Info) Description 03/17/2024 2:00 PM EDT TH Visit (TeleHealth) [place] [address] [facility] DR HOSPICE [place] [address] 04/12/2024 11:30 AM EDT Office [place] [address] [facility] DR HOSPICE [place] [address] 04/28/2024 8:30 AM EDT TH Visit (TeleHealth) [place] [address] [facility] DR HOSPICE [place] [address] Scheduled Orders Name Type Priority Associated Diagnoses Orde r Schedule EKG 12 Lead ECG Routine Chronic left lower quadrant pain Expected: 01/08/2024, Expires: 02/08/2024 documented as of this encounter Visit Diagnoses Diagnosis Chronic left lower quadrant pain Abdominal pain, left lower quadrant Spasticity Abnormal involuntary movements documented in this encounter Administered Medications Inactive Administered Medications - up to 3 most recent administrations Medication Order MAR Action Action Date Dose Rate Site botulinum toxin type A (Botox) injection 400 Units 400 Units, Intramuscular, ONCE, 1 dose, On Thu01/08/24 at 1045, Routine Given 01/08/2024 12:20 PM EDT 400 Units documented in this encounter Care Teams Dietary Manager Relationship Specialty Start Date End Date Donte Padgett MD [address] [place] [address] PCP - General Family Medicine 08/24/15 documented as of this encounter
--- OUTSIDE RECORDS SUMMARY | 2024-03-04 16:54 | XMS_ITS | Encounter Summary ---
Author Organization [facility] Address [facility] [place] [address] Care Team Providers Care Poultry Packer Name Role Phone Donte Padgett MD Primary Care Provider [phone] Encounter Details Date Type Department Care Team (Late st Contact Info) Description 12/04/2023 Orders [place] [phone] Yue Darby MD [facility] HOSPICE AND [place] [address] Chronic left lower quadrant pain Social History [...] PM EDT TH Visit (TeleHealth) [place] [phone] Yue Darby MD [facility] HOSPICE AND [place] [address] 04/12/2024 11:30 AM EDT [place] [phone] Yue Darby MD [facility] HOSPICE AND [place] [address] 04/28/2024 8:30 AM EDT TH Visit (TeleHealth) [place] [address] Yue Darby MD [facility] HOSPICE AND [place] [address] documented as of this encounter Visit Diagnoses Diagnosis Chronic left lower quadrant pain Abdominal pain, left lower quadrant documented in this encounter Care Teams Poultry Packer Relationship Specialty Start Date End Date Donte Padgett MD [address] [place] [address] PCP - General Family Medicine 08/24/15 documented as of this encounter
--- OUTSIDE RECORDS SUMMARY | 2024-03-04 16:54 | XMS_ITS | Encounter Summary ---
Author Organization [facility] Address [facility] [place] [address] Care Team Providers Care Anger Control Counselor Name Role Phone Donte Padgett MD Primary Care Provider [phone] Encounter Details Date Type Department Care Team (Late st Contact Info) Description 08/04/2023 Telephone [place] [phone] Yue Darby MD [facility] HOSPICE AND PALLIATIVE [place] [address] Social History Tobacco Use Types Packs/Day Years [...] PM EDT TH Visit (TeleHealth) [place] [phone] Yue Darby MD [facility] HOSPICE AND PALLIATIVE [place] [address] 04/12/2024 11:30 AM EDT [place] [phone] Yue Darby MD [facility] HOSPICE AND PALLIATIVE [place] [address] 04/28/2024 8:30 AM EDT TH Visit (TeleHealth) [place] [address] Yue Darby MD [facility] HOSPICE AND PALLIATIVE [place] [address] documented as of this encounter Visit Diagnoses Not on filedocumented in this encounter Care Teams Anger Control Counselor Relationship Specialty Start Date End Date Donte Padgett MD [address] [place] [address] [facility] [address] [place] [address] PCP - General Family Medicine 08/24/15 documented as of this encounter
--- OUTSIDE RECORDS SUMMARY | 2024-03-04 16:54 | XMS_ITS | Encounter Summary ---
Author Organization [facility] Address [facility] [place] [address] Care Team Providers Care Loan Specialist Name Role Phone Donte Padgett MD Primary Care Provider [phone] [phone] Encounter Details Date Type Department Care Team (Latest Contact Info) Description 01/08/2024 12:40 PM EDT Laboratory Appointment Lab [address] [place] [phone] Chronic, continuous use of opioids Social History Tobacco Use Types Packs/Day Years [...] PM EDT TH Visit (TeleHealth) [place] [phone] Yue Darby MD [facility] [place] [address] 04/12/2024 11:30 AM EDT Office [place] [phone] Yue Darby MD [facility] MEDICINE [place], [place] [id number] 04/28/2024 8:30 AM EDT TH Visit (TeleHealth) [place] [phone] Yue Darby MD [facility] HOSPICE AND [place] [address] documented as of this encounter Procedures Procedure Name Priority Date/Time Associated Diagnosis Comments OPIOIDS CONFIRMATION PANEL, URINE (PONCHATOULA) Routine 01/08/2024 1:14 PM EDT RAPID DRUG SCREEN, URINE Routine 01/08/2024 1:14 PM EDT Chronic, continuous use of opioids RAPID DRUG SCREEN W/ CONFIRMATION, URINE Routine 01/08/2024 1:14 PM EDT THC (MARIJUANA), URINE, CONFIRMATION Routine 01/08/2024 1:14 PM EDT documented in this encounter Results * THC (Marijuana), Urine Confirmation (01/08/2024 1:14 [...] developed and its performance characteristics ?determined by [facility] in a manner consistent with CLIA ?requirements. This test has not been cleared or approved by ?the U.S. Food and Drug Administration. ?Test Performed by: ?[facility] ?[address] [place] [address] ?Field Coil Winder: Bianca Nicole Ph.D.; CLIA# [id number] [facility] Urine 01/08/2024 1:14 PM EDT 01/11/2024 11:13 AM EDT Narrative Resulting Agency Comment Spec In Lab Yue Darby MD LAB SEND OUT ORDERAB LES [facility] [place] [address] * (ABNORMAL) Opioids Confirmation Panel, Urine (01/08/2024 1:14 PM EDT) Targeted Opioid Panel, Urine (MAY) Test ?Result ? Flag ??Unit ?? RefValue ------- Targeted Opioid Screen, U ??List prescribed opioids ? See medication list ? ---ADDITIONAL INFORMATION------- ?Accuracy and completeness of declared medications on ?reports solely dependent on information submitted by ?client. ??Codeine ? Not Detected ? ng/mL ??Cutoff: 25 ?Tylenol 3 ??Fwvlgwf-6-qfxk-g lucuronide ?Not Detected ? ng/mL ??Cutoff: 100 ?Metabolite of codeine ??Morphine ?Not Detected ? ng/mL ??Cutoff: 25 ?Inessa Higgins, Contin; Also a minor metabolite (10%) of ?codeine and can be seen in low concentrations (<2,000 ?ng/mL) with poppy seed ingestion. ??Cpukzwfi-1-mxop- glucuronide ? Not Detected ? ng/mL ??Cutoff: 100 ?Metabolite of morphine ??6-monoacetylmorp chhaya ?Not Detected ? ng/mL ??Cutoff: 25 ?Metabolite of heroin ??Hydrocodone ? Not Detected ? ng/mL ??Cutoff: 25 ?Lortab, [place], Vicodin; Also a very minor metabolite of [...] ?Numorphan, Opana; Also a metabolite of oxycodone. ??Ocuhjubssjw-1-kb ta-glucuronide ?Not Detected ? ng/mL ??Cutoff: 100 [...] ?Not Detected ? ng/mL ??Cutoff: 25 ?Narcan ??Vcwzvmgs-8-syno- glucuronide ? Not Detected ? ng/mL ??Cutoff: [...] of hydromorphone and one of its ?metabolites (nwqbouliddoaw-6-v eta-glucuronide). Suspect use ?of hydromorphone within the past three days. ?Test detected the presence of fentanyl and its metabolite ?(norfentanyl). Suspect use of fentanyl within the past ?three days. ? ---ADDITIONAL INFORMATION------- ?This test was developed and its performance characteristics ?determined by [facility] in a manner consistent with CLIA ?requirements. This test has not been cleared or approved by ?the U.S. Food and Drug Administration. ?Test Performed by: ?[facility] ?[address] [place] [address] ?[employer] [place]: Bianca Nicole Ph.D.; CLIA# [id number]) [facility] Urine 01/08/2024 1:14 PM EDT 01/11/2024 11:13 AM EDT Yue Darby MD LAB SEND OUT ORDERAB LES [facility] [place] [address] * (ABNORMAL) Rapid Drug Screen w/ Confirmation, Urine (01/08/2024 1:14 PM EDT) Barbiturates Screen, Urine None Detected None Detected [facility] Comment: The barbiturate screen detects barbiturates [...] Benzodiazepines Screen, Urine None Detected None Detected [facility] Comment: The benzodiazepines screen detects benzodiazepines [...] Cocaine Screen, Urine None Detected None Detected [facility] Comment: The cocaine metabolites screen detects benzoylecgonine (Cocaine Metabolite) at concentrations >150 ng/mL. A ? Presumptive Positive? result indicates that the screening result was positive but has not yet been confirmed by a highly-specific method. As with any screen, occasional false positive results from cross-reacting substances may occur. Not for Medico-Legal Purposes. Methadone Metabolites Screen, Urine None Detected None Detected [facility] Comment: The methadone metabolite screen detects EDDP (major methadone metabolite) at concentrations >100 ng/mL. A ? Presumptive Positive? result indicates that the screening result was positive but has not yet been confirmed by a highly-specific method. As with any screen, occasional false positive results from cross-reacting substances may occur. Not for Medico-Legal Purposes. Opiate Screen, Urine Presumptive Pos(A) None Detected [facility] Comment: The opiates screen detects opiates [...] Cannabinoid Screen, Urine Presumptive Pos(A) None Detected [facility] Comment: The marijuana metabolites screen detects the THC metabolite (43-wuq-8-carboxy-delta 9-THC) at concentrations >20 ng/mL. A ? Presumptive Positive? result indicates that the screening result was positive but has not yet been confirmed by a highly-specific method. As with any screen, occasional false positive results from cross-reacting substances may occur. Not for Medico-Legal Purposes. Oxycodone Screen, Urine None Detected None Detected [facility] Comment: The oxycodone screen detects oxycodone and oxymorphone at concentrations >100 ng/mL. A ? Presumptive Positive? result indicates that the screening result was positive but has not yet been confirmed by a highly-specific method. As with any screen, occasional false positive results from cross-reacting substances may occur. Not for Medico-Legal Purposes. Buprenorphine Screen, Urine None Detected None Detected [facility] Comment: The buprenorphine screen detects buprenorphine [...] characteristics of this test were determined by [facility] in accordance with CLIA requirements. This laboratory is qualified under CLIA to perform high-complexity testing. Fentanyl Screen, Urine Presumptive Pos(A) None Detected [facility] Comment: The fentanyl screen detects fentanyl [...] characteristics of this test were determined by [facility] in accordance with CLIA requirements. This laboratory is qualified under CLIA to perform high-complexity testing. Tricyclics Screen, Urine None Detected None Detected [facility] Comment: The tricyclics screen detects tricyclic [...] characteristics of this test were determined by [facility] in accordance with CLIA requirements. This laboratory is qualified under CLIA to perform high-complexity testing. Ethanol Screen, Urine None Detected None Detected [facility] Comment:This urine ethanol a ssay detects ethanol at concentrations >/= 100 mg/L. Amphetamines Screen, Urine None Detected None Detected [facility] Comment: The amphetamine screen detects d-amphetamine and d-methamphetamine at concentrations >300 ng/mL. A ? Presumptive Positive? result indicates that the screening result was positive but has not yet been confirmed by a highly-specific method. As with any screen, occasional false positive results from cross-reacting substances may occur. Not for Medico-Legal Purposes. Creatinine Specimen Validity Test, Urine 25 >=20 mg/dL [facility] Chromate Specimen Validity Test, Urine <2.0 <=49.9 mg/L [facility] Nitrite Specimen Validity Test, Urine <50 <=499 mg/L [facility] Oxidant Specimen Validity Test, Urine 7 <=199 mg/L [facility] pH Specimen Validity Test, Urine 6.3 3.0 - 10.9 [facility] Adulterants Screen, Urine None Detected None Detected [facility] Comment:No adulteration of t his urine sample was detected. Urine 01/08/2024 1:14 PM EDT 01/08/2024 1:18 PM EDT Narrative Resulting Agency Comment Spec In Lab Yue Darby MD CHEMISTRY ORDERABLES Performing Organization Address City/[facility]/ZIP Co de Phone Number [facility] [place] [address] * Rapid Drug Screen, Urine (GUILLE Request) (01/08/2024 1:14 PM EDT) GUILLE Conf Requested Yes [facility] GUILLE Requested See Comment [facility] Comment:Refer to Rapid Drug Screen w/ Confirmation, Urine for results. Urine 01/08/2024 1:14 PM EDT 01/08/2024 1:18 PM EDT Narrative Resulting Agency Comment Spec In Lab Yue Darby MD URINE ORDERABLES Performing Organization Address [facility]/ZIP Co de Phone Number [facility] [place] [address] documented in this encounter Visit Diagnoses Diagnosis Chronic, continuous use of opioids Opioid type dependence, continuous documented in this encounter Care Teams Loan Specialist Relationship Specialty Start Date End Date Donte Padgett MD [address] [place] [address] PCP - General Family Medicine 08/24/15 documented as of this encounter
--- OUTSIDE RECORDS SUMMARY | 2024-03-04 16:54 | XMS_ITS | Encounter Summary ---
Author Organization [facility] Address [facility] [place] [address] Care Team Providers Care Table Setter Name Role Phone Donte Padgett MD Primary Care Provider [phone] Reason for Visit * Reason Onset Date Comments Medication Refill 10/19/2023 Encounter Details Date Type Department Care Team (Late st Contact Info) Description 10/19/2023 [place] [phone] Yue Darby MD [facility] HOSPICE [place] [address] Spasticity Social History Tobacco Use Types Packs/Day [...] encounter Miscellaneous Notes * Telephone Encounter - Francis Gallegos MD - 10/19/2023 7:01 PM EDT Please request more from Dr Darby when needed. * Telephone Encounter - Monae Abebe - 10/19/2023 4:21 PM EDT Call Center / [facility] Message Prescription Refill Request Clinical [facility] message Provider patient sees in Clinic: Yue Darby MD Caller and relationship (if other than patient-full name): Patient Call back Number: [phone] Ok to leave a message: yes Any issues needing to be addressed prior to medication refill? (ex: dose increase, not at pharmacy): out of medication as of this morning Name of Med: refill baclofen (Lioresal) tablet Strength of Pills: 20 mg Dosing Directions: Take 1 tablet by mouth 4 times daily. How Patient is Currently Taking Medication: as prescribed 30 or 90 Day Supply: 30 Pharmacy: [id number] - [address] [phone] Last Appointment: 02/27/23 Next Appointment: (IF CALL IS FROM PATIENT/FAMILY AND THERE IS NO FOLLOW UP SCHEDULED REVIEW CHART TO SEE WHEN APPOINTMENT IS NEEDED AND SCHEDULE BEFORE SENDING MESSAGE) 11/12/23 Is Patient out of Medication?: yes documented in this encounter Plan of Treatment Upcoming Encounters Date Type Department Care Team (Late st Contact Info) Description 03/17/2024 2:00 PM EDT TH Visit (TeleHealth) [place] [address] Yue Darby MD [facility] H[facility]PICE [place] [address] 04/12/2024 11:30 AM EDT [place] [address] Yue Darby MD [facility] HOSPICE [place] [address] 04/28/2024 8:30 AM EDT TH Visit (TeleHealth) [place] [address] Yue Darby MD [facility] [place] [address] documented as of this encounter Visit Diagnoses Diagnosis Spasticity Abnormal involuntary movements documented in this encounter Care Teams Table Setter Relationship Specialty Start Date End Date Donte Padgett MD [address] [facility] [address] [place] [address] PCP - General Family Medicine 08/24/15 documented as of this encounter
--- OUTSIDE RECORDS SUMMARY | 2024-03-04 16:54 | XMS_ITS | Encounter Summary ---
Author Organization [facility] Address [facility] [place] [address] Care Team Providers Care Retail Representative Name Role Phone Donte Padgett MD Primary Care Provider [phone] Reason for Visit * Reason Onset Date Comments Appointment 07/22/2023 Encounter Details Date Type Department Care Team (Late st Contact Info) Description 07/22/2023 [place]phone [place] [address] Yahaira Hurtado Appointment Social History Tobacco Use Types Packs/Day [...] encounter Miscellaneous Notes * Telephone Encounter - Yahaira Hurtado - 07/22/2023 11:33 AM EST LVM and sent [facility] message about scheduling follow ups with Aurelia Mayfield in Gastro... please schedule per recall in chart for 6 bi weekly virtual follow ups. documented in this encounter Plan of Treatment Upcoming Encounters Date Type Department Care Team (Late st Contact Info) Description 03/17/2024 2:00 PM EDT TH Visit (TeleHealth) [place] [address] Yue Darby MD [facility] DR HOSPICE AND [place] [address] 04/12/2024 11:30 AM EDT [place] [phone] Yue Darby MD [facility] HOSPICE AND [place] [address] 04/28/2024 8:30 AM EDT TH Visit (TeleHealth) [place] [phone] Yue Darby MD [facility] [place] [address] documented as of this encounter Visit Diagnoses Not on filedocumented in this encounter Care Teams Retail Representative Relationship Specialty Start Date End Date Donte Padgett MD [address] [place] [address] PCP - General Family Medicine 08/24/15 documented as of this encounter
--- OUTSIDE RECORDS SUMMARY | 2024-03-04 16:54 | XMS_ITS | Encounter Summary ---
Author Organization [facility] Address [facility] [place] [address] Care Team Providers Care Multimedia Services Manager Name Role Phone Donte Padgett MD Primary Care Provider [phone] Encounter Details Date Type Department Care Team (Latest Contact Info) Description 01/08/2024 Travel Social History Tobacco Use Types Packs/Day Years [...] PM EDT TH Visit (TeleHealth) [place] [address] Yue Darby MD [facility] P[place]IATIVE [place] [address] 04/12/2024 11:30 AM EDT [place] [phone] Yue Darby MD [facility] [place] [address] 04/28/2024 8:30 AM EDT TH Visit (TeleHealth) [place] [phone] Yue Darby MD [facility] DR HOSPICE AND P[place]IATIVE [place] [address] documented as of this encounter Visit Diagnoses Not on filedocumented in this encounter Care Teams Multimedia Services Manager Relationship Specialty Start Date End Date Donte Padgett MD [address] [place] [address] PCP - General Family Medicine 08/24/15 documented as of this encounter
--- OUTSIDE RECORDS SUMMARY | 2024-03-04 16:54 | XMS_ITS | Encounter Summary ---
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, sequela Yue Darby MD [facility] HOSPICE [place] [address] Shelly Sultana MD [address] [place] [id number] Referral ID Status Reason Start Date Expiration Date V isits Requested Visits Authorized [id number] Closed Consult, Test & Treat 11/13/2023 05/11/2024 1 1 Encounter Details Date Type Department Care Team (Late st Contact Info) Description 11/12/2023 2:30 PM EDT TH Visit (TeleHealth) [place] [address] Yue Darby MD [facility] HOSPICE [place] [address] Chronic left lower quadrant pain; 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 Subjective Interval History: Last seen by me via telehealth on 10/04. We communicated over the patient portal and increased fentanyl TD to 75 mcg/hr on 10/22. Overall [...] regimen and his ostomy output remains loose. 09/15/23 Aly wrote last week to tell me he was having more abdominal pain and was having a difficult time getting out of the house. His pain is better this week, as are his spasms. 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 He is using opioids appropriately and [...] is finding these sessions to be helpful. Social History: Surrogate decision maker/DPOA: father Harrison [...] not discuss. 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 Enjoys hunting but [...] too high and this affects his posture. Has to hunch over to propel his [...] ENDOSCOPY performed by Lance Pandya MD at [facility] ENDOSCOPY PRO COLONOSCOPY, DIAGNOSTIC N/A 10/18/2015 COLONOSCOPY, DIAGNOSTIC performed by Seth Yeh MD at [facility] ENDOSCOPY PRO INJECTION ANES AGENT &/ STEROID ILIOINGUINAL IH NERVES Left 11/27/2021 INJECTION ANESTHETIC, ILIOINGUINAL, ILIOHYPOGASTRIC (WRVU 1.75) performed by Mika East MD [facility] PAIN MGMT MSO PRO UPPER GI ENDOSCOPY, BIOPSY N/A 10/18/2015 EGD WITH BIOPSY performed by Seth Yeh MD at [facility] ENDOSCOPY Medications: Current Outpatient Medications on File Prior to Visit Medication Sig Dispense Refill baclofen (Lioresal) 20 mg tablet Take 1 tablet by mouth 4 times daily. 120 tablet 0 HYDROmorphone (Dilaudid) 8 mg tablet Take 1-1.5 tablets by mouth every 8 hours as needed for Pain. Take 1 tab for moderate pain (5-7/10). Take 1 1/2 tabs for severe pain (8-10/10). 90 tablet 0 fentaNYL (Duragesic) 75 mcg/hr Patch 72 hr Change 1 patch on the skin every 3 days. 5 patch 0 pregabalin (Lyrica) 150 mg capsule Take 1 capsule by mouth 3 times daily. 90 capsule 0 tiZANidine (Zanaflex) 4 mg tablet Take 1 tablet by mouth daily as needed (spasms). 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 spinal disease naloxone (Narcan) 4 mg/actuation [place], Non-Aerosol 1 each by Nasal route as [...] Agreement: completed 03/14/2022 Current Risk Stratification: moderate Comments about ORT R in relation to this patient: Mother with long-standing mental illness, unclearSUD history; age 16-45; no personal history of substance abuse of psychologic disease Naloxone prescribed: yes OK for early refill? 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 Data Review No new studies. Imaging: The below studies were personally reviewed. [...] thoracic spine 10/28/2021: FINDINGS: Evaluation of the career development specialist view shows previous cervical fusion at [...] adverse effect from these medications. He has previously accepted that we may not be able to determine the etiology of his pain but is open to an outside referral to a spinal cord injury specialist for a second opinion. I will place a referral to Andrey today. Finally, he's had good response from his initial trial of BoNT injections and is open to continuingthese. We will monitor for durable response and he will return for follow-up in person on 12/08/23 for consideration of repeat injections. 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 -S/p Butrans and Belbuca trials (Butrans dose limited, Belbuca up to 750 mcg q12h with limited relief) -INCREASE fentanyl TD to 100 mcg/hr q72h -Continue hydromorphone 8-12 mg every 6 hrs as needed -Continue pregabalin 150 mg TID -[place] opioid prescribing guidelines -Needs UDS at next visit #SCI-related spasticity -Return for Botox injections 12/08/23 -Baclofen 20 mg four times daily -Tizanidine 4 mg daily prn, using when he gets up in the morning -Plan for chemodenervation with botulinum toxinA to bilateral lower extremities (total anticipated dose= 400 units) #Neurogenic bladder #Risk of autonomic dysreflexia with bladder distension #Lower extremity swelling -Trial compression stockings with zippers -Continue intermittent catheterization program #Opioid-induced constipation #Neurogenic bowel complicated by veronica-rectal abscess, hemorrhoids s/p colostomy -Dulcolax 1-2 tabs daily -Milk of Mg PRN Follow-up: 12/08/23 Botox, 8 weeks telehealth Yue Darby MD Physical Medicine & Rehabilitation documented in this encounter Plan of Treatment Upcoming Encounters Date Type Department Care Team (Late st Contact Info) Description 03/17/2024 2:00 PM EDT TH Visit (TeleHealth) [place] [address] Yue Darby MD [facility] DR HOSPICE [place] [address] 04/12/2024 11:30 AM EDT Office [place] [phone] Yue Darby MD [facility] DR HOSPICE [place] [address] 04/28/2024 8:30 AM EDT TH Visit (TeleHealth) [place] [address] Yue Darby MD [facility] DR HOSPICE [place] [address] Scheduled Referrals Name Type Priority Associated Diagnoses Orde r Schedule Referral to Physiatry Outpatient Referral Routine Chronic left lower quadrant pain 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
--- OUTSIDE RECORDS SUMMARY | 2024-03-04 16:54 | XMS_ITS | Encounter Summary ---
Author Organization [facility] Address [facility] [place] [address] Care Team Providers Care Network Liaison Name Role Phone Donte Padgett MD Primary Care Provider [phone] Encounter Details Date Type Department Care Team (Latest Contact Info) Description 06/09/2023 Travel Social History Tobacco Use Types Packs/Day [...] PM EDT TH Visit (TeleHealth) [place] [address] Yue Darby MD [facility] HOSPICE AND [place] [address] 04/12/2024 11:30 AM EDT [place] [phone] Yue Darby MD [facility] HOSPICE [place] [address] 04/28/2024 8:30 AM EDT TH Visit (TeleHealth) [place] [phone] Yue Darby MD [facility] DR HOSPICE [place] [address] documented as of this encounter Visit Diagnoses Not on filedocumented in this encounter Care Teams Network Liaison Relationship Specialty Start Date End Date Donte Padgett MD [address] [place] [address] PCP - General Family Medicine 08/24/15 documented as of this encounter
--- OUTSIDE RECORDS SUMMARY | 2024-03-04 16:54 | XMS_ITS | Encounter Summary ---
Author Organization [facility] Address [facility] [place] [address] Care Team Providers Care Medical Appointment Clerk Name Role Phone Donte Padgett MD Primary Care Provider [phone] [phone] Encounter Details Date Type Department Care Team (Late st Contact Info) Description 09/24/2023 Orders Only [place] [phone] Yue Darby MD [facility] HOSPICE [place] [address] Social History Tobacco Use Types Packs/Day Years [...] PM EDT TH Visit (TeleHealth) [place] [phone] Yue Darby MD [facility] HOSPICE [place] [address] 04/12/2024 11:30 AM EDT [place] [phone] Yue Darby MD [facility] HOSPICE [place] [address] 04/28/2024 8:30 AM EDT TH Visit (TeleHealth) [place] [address] Yue Darby MD [facility] HOSPICE [place] [address] documented as of this encounter Visit Diagnoses Not on filedocumented in this encounter Care Teams Medical Appointment Clerk Relationship Specialty Start Date End Date Donte Padgett MD [address] [facility] [place] [address] PCP - General Family Medicine 08/24/15 documented as of this encounter
--- OUTSIDE RECORDS SUMMARY | 2024-03-04 16:54 | XMS_ITS | Encounter Summary ---
Author Organization [facility] Address [facility] [place] [address] Care Team Providers Care Health Care Manager Name Role Phone Donte Padgett MD Primary Care Provider [phone] [phone] Reason for Visit * Reason Onset Date Comments Medication Refill 12/31/2023 Encounter Details Date Type Department Care Team (Late st Contact Info) Description 12/31/2023 [place] [phone] Yue Darby MD [facility] HOSPICE AND [place] [address] Chronic left lower quadrant pain Social History [...] encounter Miscellaneous Notes * Telephone Encounter - Mickie Esparza RN - 12/31/2023 10:50 AM EDT Prescription Renewal Request Name: Aly De La Torre : 1990 Prescription(s) Requested: Requested Prescriptions Pending Prescriptions Disp Refills HYDROmorphone (Dilaudid) 8 mg tablet 90 tablet 0 Sig: Take 1-1.5 tablets by mouth every 6 hours as needed for Pain. Take 1 tab for moderate pain (5-7/10). Take 1 1/2 tabs for severe pain (8-10/10). Date of Last Encounter: 11/12/23 S/p Butrans and Belbuca trials (Butrans dose limited, Belbuca up to 750 mcg q12h with limited relief) -INCREASE fentanyl TD to 100 mcg/hr q72h -Continue hydromorphone 8-12 mg every 6 hrs as needed -Continue pregabalin 150 mg TID -[place] opioid prescribing guidelines -Needs UDS at next visit Next Encounter: 01/08/2024 Date of Last Refill: 12/04/23 Medication category requirements (labs etc): n/a Status of request: Pended No Known Allergies Mickie Esparza RN 12/31/23 11:00 AM * Telephone Encounter - Kimberly Nieves - 12/31/2023 9:56 AM EDT Call Center / Scaler Message Prescription Refill Request Clinical [place] message Provider patient sees in Clinic: Wilner Caller and relationship (if other than patient-full name): Self Call back Number: [phone] Ok to leave a message: y Any issues needing to be addressed prior to medication refill? (ex: dose increase, not at pharmacy): y Name of Med: HYDROmorphone (Dilaudid) 8 mg tablet Strength of Pills: 8 mg Dosing Directions: Take 1-1.5 tablets by mouth every 6 hours as needed for Pain. Take 1 tab for moderate pain (5-7/10). Take 1 1/2 tabs for severe pain (8-10/10). How Patient is Currently Taking Medication: see above 30 or 90 Day Supply: 30 Pharmacy: [id number] - [address] [address] Last Appointment: 11/12/23 Next Appointment: (IF CALL IS FROM PATIENT/FAMILY AND THERE IS NO FOLLOW UP SCHEDULED REVIEW CHART TO SEE WHEN APPOINTMENT IS NEEDED AND SCHEDULE BEFORE SENDING MESSAGE) 01/08/24 Is Patient out of Medication?: no documented in this encounter Plan of Treatment Upcoming Encounters Date Type Department Care Team (Late st Contact Info) Description 03/17/2024 2:00 PM EDT TH Visit (TeleHealth) [place] [address] Yue aDrby MD [facility] DR HOSPICE [place] [address] 04/12/2024 11:30 AM EDT [place] [address] Yue Darby MD [facility] DR HOSPICE [place] [address] 04/28/2024 8:30 AM EDT TH Visit (TeleHealth) [place] [address] Yue Darby MD [facility] DR HOSPICE [place] [address] documented as of this encounter Visit Diagnoses Diagnosis Chronic left lower quadrant pain Abdominal pain, left lower quadrant documented in this encounter Care Teams Health Care Manager Relationship Specialty Start Date End Date Donte Padgett MD [address] [facility] 1 [place] [address] PCP - General Family Medicine 08/24/15 documented as of this encounter
--- OUTSIDE RECORDS SUMMARY | 2024-03-04 16:54 | XMS_ITS | Encounter Summary ---
Author Organization [facility] Address [facility] [place] [address] Care Team Providers Care Capsule Filling Machine Operator Name Role Phone Donte Padgett MD Primary Care Provider [phone] [phone] Reason for Referral * Consultation (Routine) - Authorized Specialty Diagnoses / Procedures Referred By Elfego hong Referred To Contact Sleep Center Diagnoses Fatigue, unspecified type Donna Bowser, PhD [facility] [place] [address] [facility] Sleep Medicine [address] [place] [address] Referral ID Status Reason Start Date Expiration Date Visits Requested Visits Authorized [id number] Authorized Consult, Test & Treat 09/14/2023 09/13/2024 1 1 Encounter Details Date Type Department Care Team (Latest Contact Info) Description 09/07/2023 10:00 AM EST TH Visit (TeleHealth) [place] [phone] Aurelia Mayfield Depression, unspecified depression type; Abdominal pain, chronic, left lower quadrant; Fatigue, unspecified type Social History Tobacco Use Types Packs/Day [...] this encounter Progress Notes * Aurelia Mayfield Dagmar - 09/07/2023 10:00 AM EST [facility] Department of Medicine, Section of Gastroenterology & Hepatology Behavioral Health Follow-up Focus of visit: today I personally spent 60 minutes providing behavioral health intervention. Visitwas completed via telehealth. Patient is located at home. Visit date: 09/07/23 Visit number: 2 [facility] GI provider: Milady Gotti APRN Goals of treatment: Reduce pain and/or learn skills to better manage symptoms of pain Decrease symptoms of depression Increase engagement in activities of daily living and valued activities Enhance acceptance of chronic health conditions Changes since previous visit & visit content: Since previous visit, Aly reported that he has continued to struggle with abdominal pain and muscle spasms in leg. He also currently has a bladder infection and just started on antibiotics. He recently has tried a leg bag for urination over night, however, struggled to keep it in place. Is interested in trying again with recommendations from providers because benefits seemed promising for improved sleep. Also discussed interest in a sleep study due to sleeping through self cathing at night leading to dysreflexia and day time sleepiness/falling asleep despite getting adequate sleep. He is receiving another round of botox next week for muscle spasms and is hopeful. He has been practicing deep breathing regularly. In today's session, we reviewed information covered in first session about the brain's generation of pain. Identified negative beliefs about brain generation of pain and normalized experience. Also discussed difficulty with memory - Aly reported not being able remember details about his life which makes him feel like it it's not worth living. Normalized cognitive disruption common while living with chronic pain and depression. Aly resonated with this idea and reflected on internal experience focused on pain and hiding pain when engaged socially. He notices pain reduces when distracted or immersed in other things. Identified common thoughts in response to pain that signal danger. Introduced idea of cognitive reappraisals and pt agreed to practice before next visit. Assessment: Diagnosis/formulation: Depression, chronic abdominal pain Mental status: No SI. Mental status WNL. Fully engaged in therapy process. Plan: -short term cognitive behavioral therapy - Referral to Sleep Medicine -return in 2 Weeks. Aly De La Torre has my contact information and was encouraged to reach out to me in the future as needed. Assignment for next visit: Continuin) Practice diaphragmatic breathing at least 1x per day New: 1) Practice cognitive reappraisals for pain * Aurelia Mayfield - 09/07/2023 10:00 AM EST Patient Name: Aly De La Torre Date of : 1990 Date of Creation: 09/07/2023 Treatment Plan Type: Initial Diagnosis: ICD-10-CM 1. Depression, unspecified depression type F32.A 2. Abdominal pain, chronic, left lower quadrant R10.32 G89.29 Problem List: Patient Active Problem List Diagnosis Code C6 spinal cord injury S14.106A Neurogenic bladder N31.9 Abdominal pain, chronic, left lower quadrant R10.32, G89.29 Neurogenic bowel K59.2 Anxiety F41.9 Depression F32.A Internal bleeding hemorrhoids K64.8 Migraine G43.909 Quadriplegia, C5-C7 incomplete G82.54 Reactive airway disease J45.909 Status post appendectomy Z90.49 History of rectal abscess Z87.19 Spasticity R25.2 Goals: Behavioral Health: reduce frequency and/or intensity of abdominal pain, improve understanding of impact of psychological factors on experience of pain, decrease impact of depression and pain on quality of life, support adjustment to and engagement in treatment for spinal cord injury, and promote acceptance of traumatic injury. Interventions: Interventions Length of Session Frequency Expected Duration Individual Therapy 45-60 minutes 1 bi-weekly 4 month(s) * Donna Bowser, PhD - 09/07/2023 10:00 AM EST I have reviewed this note and I agree with the assessment, plan, and treatment as documented by Aurelia Mayfield, doctoral paralegal internship in the Department of Psychiatry. The assessment and plan wereformulated in discussion with me and I agree with them as documented. Donna Bowser, Ph.D. documented in this encounter Plan of Treatment Upcoming Encounters Date Type Department Care Team (Late st Contact Info) Description 03/17/2024 2:00 PM EDT TH Visit (TeleHealth) [place] [address] Yue Darby MD [facility] [address] HOSPICE [place] [address] 04/12/2024 11:30 AM EDT Office [place] [address] Yue Darby MD [facility] DR HOSPICE [place] [address] 04/28/2024 8:30 AM EDT TH Visit (TeleHealth) [place] [address] Yue Darby MD [facility] DR HOSPICE [place] [address] Scheduled Referrals Name Type Priority Associated Diagnoses Orde r Schedule Referral to Sleep Disorders Center Outpatient Referral Routine Fatigue, unspecified type Ordered: 09/14/2023 documented as of this encounter Visit Diagnoses Diagnosis Depression, unspecified depression type Abdominal pain, chronic, left lower quadrant Abdominal pain, left lower quadrant Fatigue, unspecified type documented in this encounter Care Teams Capsule Filling Machine Operator Relationship Specialty Start Date End Date Donte Padgett MD [address] [place] [address] [address] [facility] 1 [place] [address] PCP - General Family Medicine 08/24/15 documented as of this encounter
--- OUTSIDE RECORDS SUMMARY | 2024-03-04 16:54 | XMS_ITS | Encounter Summary ---
Author Organization [facility] [place] [address] Care Team Providers Care Flight Coordinator Name Role Phone Donte Padgett MD Primary Care Provider [phone] [phone] Encounter Details Date Type Department Care Team (Latest Contact Info) Description 10/05/2023 10:00 AM EDT TH Visit (TeleHealth) [place] [phone] Aurelia Mayfield Depression, unspecified depression type; Abdominal pain, chronic, left lower quadrant Social History Tobacco Use Types Packs/Day Years [...] encounter Progress Notes * Aurelia Mayfield - 10/05/2023 10:00 AM EDT [facility] Department of Medicine, Section of Gastroenterology & Hepatology Behavioral Health Follow-up Focus of visit: today I personally spent 60 minutes providing behavioral health intervention. Visitwas completed via telehealth. Patient is located at home. Visit date: 10/05/23 Visit number: 3 [facility] provider: Milady Gotti APRN Goals of treatment: Reduce pain and/or learn skills to better manage symptoms of pain Decrease symptoms of depression Increase engagement in activities of daily living and valued activities Enhance acceptance of chronic health conditions Changes since previous visit & visit content: Since previous visit, Aly reported: Trialing different pain medication under care of Dr. 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 showering safely given current arm weakness Sponge bath - low willingness due to hx with sponge baths after injury Help from father with transfer How to fall to minimize injury - reported being good at this - not worried Acceptance of needing help from fire dept Assessment: Diagnosis/formulation: Depression, chronic abdominal pain Mental status: No SI. Mental status WNL. Fully engaged in therapy process. Plan: -short term cognitive behavioral therapy - Referral to Sleep Medicine -return in 2 Weeks. Aly Dagmar ArevaloWil has my contact information and was encouraged to reach out to me in the future as needed. Assignment for next visit: Continuin) Practice diaphragmatic breathing at least 1x per day 2) Practice cognitive reappraisals for pain New: 1) Induce positivity with 5 senses at least 1x per day 2) Download curable dixon * Yue Darby MD - 10/05/2023 10:00 AM EDT OPIOID MANAGEMENT: Substance Use History: none Therapeutic [...] as expected (repeat yearly) PDMP reviewed: yes, 10/06/2023 MEDD: 144 (stopped MS Contin, previously was getting 150 OME with MS Contin) Pill Count: hydromorphone 8 mg tabs #87.5 (filled on 10/01/23) I have counseled Aly De La Torre about the safe use of opioids including dosing, side effects, safestorage and disposal. They know to contact the clinic if he has questions related to pain medication use. He has been advised that the concurrent use of benzodiazepines and opioids can increase the risk ofoversedation and possibly respiratory depression. Plan: For pain: -STOP MS Contin 75 mg (long-acting morphine) twice daily -START fentanyl TD 50 mcg/hr q72h -Continue hydromorphone 8 mg 1-1.5 mg tabs q12h as needed for pain unrelieved by the above -Continue pregabalin 150 mg three times daily Yue Darby MD Physical Medicine & Rehabilitation * Karissa Hill, PhD - 10/05/2023 10:00 AM EDT I have reviewed this note and I agree with the assessment, plan, and treatment as documented by Aurelia Mayfield, doctoral finance accounting internship in the Department of Psychiatry. The assessment and plan wereformulated in consultation with Dr. Bowser, who will continue to provide primary supervision for this case and will address any additions or corrections in addendum. I was immediately available for consultation and involvement in the planning and execution of this service. Karissa Hill, PhD documented in this encounter Plan of Treatment Upcoming Encounters Date Type Department Care Team (Late st Contact Info) Description 03/17/2024 2:00 PM EDT TH Visit (TeleHealth) [place] [address] Yue Darby MD [facility] HOSPICE AND P[place]IATIVE [place] [address] 04/12/2024 11:30 AM EDT [place] [address] Yue Darby MD [facility] DR HOSPICE AND P[place]IAT[place] [address] 04/28/2024 8:30 AM EDT TH Visit (TeleHealth) [place] [address] Yue Darby MD [facility] DR HOSPICE AND P[place]IAT[place] [address] documented as of this encounter Visit Diagnoses Diagnosis Depression, unspecified depression type Abdominal pain, chronic, left lower quadrant Abdominal pain, left lower quadrant documented in this encounter Care Teams Flight Coordinator Relationship Specialty Start Date End Date Donte Padgett MD [address] [place] [address] PCP - General Family Medicine 08/24/15 documented as of this encounter
--- OUTSIDE RECORDS SUMMARY | 2024-03-04 16:54 | XMS_ITS | Encounter Summary ---
Author Organization [facility] Address [facility] [place] [address] Care Team Providers Care Hand Box Coverer Name Role Phone Donte Padgett MD Primary Care Provider [phone] [phone] Reason for Visit * Reason Onset Date Comments Medication Refill 05/01/2023 Encounter Details Date Type Department Care Team (Late st Contact Info) Description 05/01/2023 [place] [phone] Yue Darby MD [facility] DR HOSPICE [place] [address] Chronic left lower quadrant pain Social History [...] encounter Miscellaneous Notes * Telephone Encounter - May Aguilar - 05/01/2023 10:56 AM EDT Call Center / Fiction Writer Message Prescription Refill Request Clinical [place] message Provider patient sees in Clinic: Yue Darby Caller and relationship (if other than patient-full name): self Call back Number: [phone] Ok to leave a message: yes Any issues needing to be addressed prior to medication refill? (ex: dose increase, not at pharmacy): no Name of Med: HYDROmorphone (Dilaudid) 8 mg tablet Strength of Pills: 8 mg tablet Dosing Directions: Summary: Take 1-1.5 tablets by mouth every 12 hours as needed for Pain. Take 1 tab for moderate pain (5-7/10). Take 1 1/2 tabs for severe pain (8-10/10). Indication: Chronic pain How Patient is Currently Taking Medication: Summary: Take 1-1.5 tablets by mouth every 12 hours as needed for Pain. Take 1 tab for moderate pain (5-7/10). Take 1 1/2 tabs for severe pain (8-10/10). Indication: Chronic pain 30 or 90 Day Supply: [facility] [place] [place] Last Appointment: 02/27/23 Next Appointment: (IF CALL IS FROM PATIENT/FAMILY AND THERE IS NO FOLLOW UP SCHEDULED REVIEW CHART TO SEE WHEN APPOINTMENT IS NEEDED AND SCHEDULE BEFORE SENDING MESSAGE) 06/16/23 Is Patient out of Medication?: yes, please DAUGHERTY documented in this encounter Plan of Treatment Upcoming Encounters Date Type Department Care Team (Late st Contact Info) Description 03/17/2024 2:00 PM EDT TH Visit (TeleHealth) [place] [address] Yue Darby MD [facility] HOSPICE [place] [address] 04/12/2024 11:30 AM EDT Office [place] [phone] Yue Darby MD [facility] HOSPICE [place] [address] 04/28/2024 8:30 AM EDT TH Visit (TeleHealth) [place] [phone] Yue Darby MD [facility] HOSPICE [place] [address] documented as of this encounter Visit Diagnoses Diagnosis Chronic left lower quadrant pain Abdominal pain, left lower quadrant documented in this encounter Care Teams Hand Box Coverer Relationship Specialty Start Date End Date Donte Padgett MD [address] [place] [address] PCP - General Family Medicine 08/24/15 documented as of this encounter
--- OUTSIDE RECORDS SUMMARY | 2024-03-04 16:54 | XMS_ITS | Encounter Summary ---
Author Organization [facility] Address [facility] [place] [address] Care Team Providers Care Route Salesman Name Role Phone Donte Padgett MD Primary Care Provider [phone] [phone] Reason for Visit * Reason Onset Date Comments Medication Refill 08/27/2023 Encounter Details Date Type Department Care Team (Late st Contact Info) Description 08/27/2023 [place] [address] Yue Darby MD [facility] HOSPICE AND [place] [address] Chronic left lower quadrant pain Social History [...] Telephone Encounter - Nicolle Martinez, RN - 08/28/2023 8:21 AM EST THV 07/24/23 FUV 09/15/23 Last refill 07/31/23 #120 no refill * Telephone Encounter - Katelynn Hernandez - 08/27/2023 1:28 PM EST Call Center / [place] Message Prescription Refill Request Clinical [place] message Provider patient sees in Clinic: Wilner Caller and relationship (if other than patient-full name): Self Call back Number: [phone] Ok to leave a message: any Any issues needing to be addressed prior to medication refill? (ex: dose increase, not at pharmacy): Name of Med: HYDROmorphone (Dilaudid) Strength of Pills: 8 mg tablet Dosing Directions: Sig: Take 1-1.5 tablets by mouth every 8 hours as needed for Pain. Take 1 tab for moderate pain (5-7/10). Take 1 1/2 tabs for severe pain (8-10/10). How Patient is Currently Taking Medication: Sig: Take 1-1.5 tablets by mouth every 8 hours as needed for Pain. Take 1 tab for moderate pain (5-7/10). Take 1 1/2 tabs for severe pain (8-10/10). 30 or 90 Day Supply: 30 (120 tablets) [facility]acy: [facility] [place], [place] Last Appointment: 07/24/23 Next Appointment: (IF CALL IS FROM PATIENT/FAMILY AND THERE IS NO FOLLOW UP SCHEDULED REVIEW CHART TO SEE WHEN APPOINTMENT IS NEEDED AND SCHEDULE BEFORE SENDING MESSAGE) 09/15/23 Is Patient out of Medication?: no, but will be by 08/29/23 documented in this encounter Plan of Treatment Upcoming Encounters Date Type Department Care Team (Late st Contact Info) Description 03/17/2024 2:00 PM EDT TH Visit (TeleHealth) [place] [address] Yue Darby MD [facility] HOSPICE AND [place] [address] 04/12/2024 11:30 AM EDT Office [place] [address] Yue Darby MD [facility] HOSPICE AND [place] [address] 04/28/2024 8:30 AM EDT TH Visit (TeleHealth) [place] [address] Yue Darby MD [facility] DR HOSPICE AND [place] [address] documented as of this encounter Visit Diagnoses Diagnosis Chronic left lower quadrant pain Abdominal pain, left lower quadrant documented in this encounter Care Teams Route Salesman Relationship Specialty Start Date End Date Donte Padgett MD [address] [place] [address] PCP - General Family Medicine 08/24/15 documented as of this encounter
--- OUTSIDE RECORDS SUMMARY | 2024-03-04 16:54 | XMS_ITS | Encounter Summary ---
Author Organization [facility] Address [facility] [place] [place] [address] Care Team Providers Care Plant Anatomy Teacher Name Role Phone Donte Padgett MD Primary Care Provider [phone] [phone] Encounter Details Date Type Department Care Team (Late st Contact Info) Description 09/17/2023 Telephone [place] [phone] Yue Darby MD [facility] DR HOSPICE AND [place] [address] Social History Tobacco Use Types Packs/Day Years [...] Telephone Encounter - Yue Darby MD - 09/17/2023 11:42 AM EDT Physiatry phone note Outgoing call placed to patient. Reviewed how he was doing with the changes to opioids discussed athis visit on Thursday. He has taken 60 mg MS Contin twice a day starting yesterday morning and hasn't noticed a significant improvement in pain, still had to take hydromorphone 8 mg x4 yesterday. Used Milk of Mg today to get his bowels moving and this was effective. OPIOID MANAGEMENT: Substance Use History: none Therapeutic [...] as expected (repeat yearly) PDMP reviewed: yes, 09/17/2023 MEDD: 248 Pill Count: 24 remaining (30 mg morphine sulfate) Plan: -Instructed to increase MS Contin 30 mg to THREE tabs twice daily for now -New Rx sent to [facility] for MS Contin 100 mg, take one tablet twice daily (#60, no refills) -Continue hydromorphone 8 mg tablets take 1-1.5 tabs q8h prn -Continue with bowel regimen to ensure 1 soft, formed BM daily Yue Darby MD Palliative Medicine Personal pager [phone] 09/17/2023 11:43 AM documented in this encounter Plan of Treatment Upcoming Encounters Date Type Department Care Team (Late st Contact Info) Description 03/17/2024 2:00 PM EDT TH Visit (TeleHealth) [place] [address] Yue Darby MD [facility] HOSPICE AND [place] [address] 04/12/2024 11:30 AM EDT Office [place] [phone] Yue Darby MD [facility] HOSPICE AND [place] [address] 04/28/2024 8:30 AM EDT TH Visit (TeleHealth) [place] [phone] Yue Darby MD [facility] HOSPICE AND [place] [address] documented as of this encounter Visit Diagnoses Diagnosis Chronic left lower quadrant pain Abdominal pain, left lower quadrant documented in this encounter Care Teams Plant Anatomy Teacher Relationship Specialty Start Date End Date Donte Padgett MD [address] [place] [address] PCP - General Family Medicine 08/24/15 documented as of this encounter
--- OUTSIDE RECORDS SUMMARY | 2024-03-04 16:54 | XMS_ITS | Encounter Summary ---
Author Organization [facility] Address [facility] [place] [address] Care Team Providers Care Airplane Charter Clerk Name Role Phone Donte Padgett MD Primary Care Provider [phone] [phone] Reason for Visit * Consultation (Routine) - Closed Specialty Diagnoses / Procedures Referred By Contac t Referred To Contact Neurology Diagnoses Spasticity Yue Darby MD [facility] [address] HOSPICE [place] [address] Anette Ruiz MD [facility] [place] [address] Referral ID Status Reason Start Date Expiration Date V isits Requested Visits Authorized [id number] Closed Consult, Test & Treat 03/23/2023 03/22/2024 1 1 Encounter Details Date Type Department Care Team (Late st Contact Info) Description 06/09/2023 8:00 AM EST Office Visit Neurology at [address] [address] Anette Ruiz MD [facility] [place] [address] Spasticity Social History Tobacco Use Types Packs/Day Years Used Date Smoking Tobacco: Every Day Cigarettes Smokeless Tobacco: Never Alcohol Use Standard Drinks/Week Comments No 0 (1 standard drink = 0.6 oz pur e alcohol) Sex and Gender Information Value Date Recorded Sex Assigned at Not on file Gender Identity Not on file Sexual Orientation Not on file documented as of this encounter Last Filed Vital Signs Vital Sign Reading Time Taken Comments Blood Pressure 122/59 06/09/2023 7:52 AM EST Pulse 52 06/09/2023 7:52 AM EST Temperature - - Respiratory Rate - - Oxygen Saturation - - Inhaled Oxygen Concentration - - Weight - - Height - - Body Mass Index - - documented in this encounter Progress Notes * Anette Ruiz MD - 06/09/2023 8:00 AM EST [facility] Movement Disorders New Patient Evaluation Date of service 06/09/2023 Referring provider Yue Darby MD [facility] [place] [address] Cc: consideration of baclofen pump History of present illness Aly De La Torre is a 33 y.o. right handed man who presents to the movement disorders clinic for evaluation of spasticity. He had C6 injury at age 21. He has some sense to extreme temps and deep pressure in his lower extremities but does not have full sensation below nipple level. No motr function in the trunk or lower extremities. He does have spasms in his legs with movement. This is worsening over the past few years. His legs may kick out. He also has severe associated abdominal pain. Transferring is difficult because this may trigger spasms. Generally the spasms are worse early in the day. He can drive using hand controls. His legs may spasm when he drives and he worries that he can kickone of the floor pedals. He is taking oral baclofen 20mg QID. He is also on tizanidine 4mg q 6 hrs which has helped a little. This can also cause him some drowsiness. He has found that after general anesthesia that the spasms resolve for a few hours. He finds that THC works best for the spasms but he is not able to use this much. Chronic abdominal issues have been another ongoing issue. He has had extensive workup and has an ostomy bag now without plans for reversal. 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 Current Outpatient Medications: baclofen (Lioresal) 10 mg tablet, Take 10 mg by mouth 2 times daily., Disp: , Rfl: HYDROmorphone (Dilaudid) 8 mg tablet, Take 1-1.5 tablets by mouth every 12 hours as needed for Pain. Take 1 tab for moderate pain (5-7/10). Take 1 1/2 tabs for severe pain (8-10/10)., Disp: 90 tablet, Rfl: 0 baclofen (Lioresal) 20 mg tablet, Take 1 tablet by mouth 4 times daily., Disp: 120 tablet, Rfl: 3 tiZANidine (Zanaflex) 4 mg tablet, every 6 hours as needed (spasms). 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 spinal disease, Disp: , Rfl: vardenafiL (Levitra) 20 mg tablet, TAKE 1/2 TO 1 TABLET BY MOUTH ONCE DAILY NEEDED FOR SEXUAL ACTIVITY, Disp: , Rfl: gabapentin (Neurontin) 400 mg capsule, Take 2 capsules by mouth 3 times daily. Take 2 capsules in the morning, 3 capsules in the afternoon, 2 capsules in the evening., Disp: 210 capsule, Rfl: 0 bisacodyl EC (Dulcolax) 5 mg Tablet, Delayed Release (E.C.), Take 2 tablets by mouth daily. Can take an additional 2 tabs daily as needed for constipation., Disp: 30 tablet, Rfl: 0 magnesium hydroxide (Milk of Magnesia) 2,400 mg/10 mL Suspension, Take by mouth daily. Indications:emptying of the bowel, Disp: , Rfl: polyethylene glycoL (Miralax) 17 gram Powder in Packet, Take 17 g by mouth daily., Disp: , Rfl: omeprazole 20 mg Tablet, Delayed Release (E.C.), Take 20 mg by mouth daily as needed. Prn heartburn, takes 2-3 x/week, Disp: , Rfl: buprenorphine HCL (Belbuca) 750 mcg Film, Place 1 Film inside cheek daily. (Patient not taking: Reported on 06/09/2023), Disp: , Rfl: [address] (Cymbalta) [address] capsule, Take 1 capsule by mouth daily. (Patient not taking: Reported on 06/09/2023), Disp: 30 tablet, Rfl: 0 naloxone (Narcan) 4 mg/actuation [place], Non-Aerosol, 1 each by Nasal route as needed (respiratory depression from opioid overdose). (Patient not taking: Reported on 06/09/2023), Disp: 2 each, Rfl: 3 simethicone (MYLICON) 125 mg Tablet, Chewable, Take 125 mg by mouth every 6 hours as needed for Heartburn., Disp: , Rfl: naloxone (Narcan) 4 mg/actuation [place], Non-Aerosol, 1 each by Nasal route as needed (respiratory depression from opioid overdose). (Patient not taking: Reported on 01/30/2023), Disp: 2 each, Rfl: 3 Past Medical History: Diagnosis Date Abdominal pain, chronic, left lower quadrant Anemia 11/30/2020 Chronic incomplete spastic tetraplegia Closed fracture of fifth metacarpal bone 05/12/2009 Hemorrhoids with complication History of rectal abscess Neurogenic bladder Neurogenic bowel Spasticity Past Surgical History: Procedure Laterality Date PRG UNLISTED DIAGNOSTIC GASTROENTEROLOGY PROCEDURE N/A 12/11/2015 VIDEO CAPSULE ENDOSCOPY performed by Lance Pandya MD at [facility] ENDOSCOPY PRO COLONOSCOPY, DIAGNOSTIC N/A 10/18/2015 COLONOSCOPY, DIAGNOSTIC performed by Seth Yeh MD at [facility] ENDOSCOPY PRO INJECTION ANES AGENT &/ STEROID ILIOINGUINAL IH NERVES Left 11/27/2021 INJECTION ANESTHETIC, ILIOINGUINAL, ILIOHYPOGASTRIC (WRVU 1.75) performed by Mika East MD [facility] PAIN MGMT MSO PRO UPPER GI ENDOSCOPY, BIOPSY N/A 10/18/2015 EGD WITH BIOPSY performed by Seth Yeh MD at [facility] ENDOSCOPY Social History: 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 Review of Systems - All others negative except as per HPI Physical Exam Patient Vitals for the past 24 hrs: Pulse BP 06/09/23 0752 52 122/59 General: the patient appears stated age, not in any acute distress, he uses a wheel chair Voice/language: no vocal tremor or dysarthria. Normal fluency and comprehension Mental status: oriented to place, self, date and reason for visit Cranial Nerves: III, IV, : EOMI, normal saccades and pursuit VIII: hearing normal in conversation Strength: Full strength in proximal upper extremities, 4/5 wrist extensors, 4/5 triceps, 0/5 finger extension, 3/5 engagement quality consultant No voluntary movement in the legs, full ROM, no clonus Sensory: intact to about C5 level, lower trunk and legs deep pressure and extreme temps only Review of available labs and imaging: Assessment: ICD-10-CM 1. Spasticity R25.2 He has full ROM in his lower extremities are loose on passive movement but he does have intermittent spasms with associated leg movement. He has some response to oral baclofen. We will not be able torely on modified kassandra for his baclofen test dose because his baseline tone is good. It would jose more subjective evaluation. His biggest concern would be having this surgery and it not working. He is open to trying the test dose. He will also be getting botox injections next week and if thosework well we may abandon the idea of baclofen pump. Plan: - see how he does with botox - if not responsive to botox then we will arrange for baclofen test dose Anette uRiz MD [facility] Neurology-Movement Disorders documented in this encounter Plan of Treatment Upcoming Encounters Date Type Department Care Team (Late st Contact Info) Description 03/17/2024 2:00 PM EDT TH Visit (TeleHealth) [place] [address] Yue Darby MD [facility] HOSPICE [place] [address] 04/12/2024 11:30 AM EDT [place] [address] Yue Darby MD [facility] HOSPICE [place] [address] 04/28/2024 8:30 AM EDT TH Visit (TeleHealth) [place] [address] Yue Darby MD [facility] HOSPICE [place] [address] documented as of this encounter Visit Diagnoses Diagnosis Spasticity Abnormal involuntary movements documented in this encounter Care Teams Airplane Charter Clerk Relationship Specialty Start Date End Date Donte Padgett MD [address] [place] [address] PCP - General Family Medicine 08/24/15 documented as of this encounter
--- OUTSIDE RECORDS SUMMARY | 2024-03-04 16:54 | XMS_ITS | Encounter Summary ---
Author Organization [facility] Address [facility] [place] [address] Care Team Providers Care Electrical Superintendent Name Role Phone Donte Padgett MD Primary Care Provider [phone] [phone] Encounter Details Date Type Department Care Team (Late st Contact Info) Description 08/06/2023 Telephone [place] [phone] Yue Darby MD [facility] HOSPICE [place] [address] Social History Tobacco Use Types Packs/Day Years [...] Telephone Encounter - Yue Darby MD - 08/06/2023 1:00 PM EST Physiatry Telephone Encounter Outgoing call placed to Aly to discuss pain management. He has been using hydromorphone 8 mg tabsas prescribed, taking 1-2 tabs up to three times daily (on average is using 5 tabs daily). His painremains 7-8/10 despite medication, can be as high as 10/10. Notes onset of the hydromorphone to be approx 1 hr, effect lasts up to 2 hrs. He has been able to go to work three days this week but is staying home today due to pain. He states that a tolerable level for pain would be 3-4/10. He continues to have daily ostomy output, takes dulcolax 2 tabs qam, 1 tab qpm. If goes >24h without BM will take milk of Mg and this is effective. Has weaned down to gabapentin 200 mg TID and is no longer feeling overly sedated. We discussed his frustrations with the ongoing lack of diagnosis/etiology for pain, frustration with need for chronic opioid therapy for pain relief. His goal is to be functional enough to go to work. He had an intake visit with GI psychology and founds this to be helpful, is scheduled for 6 additional sessions with them. He currently feels safe and his father and sister check in on him regularly. He has a prescription for naloxone which his family is aware of. It was recently filled and is at home on the kitchen counter. Assessment: 33 y.o. man with sequelae of cervical SCI and chronic LLQ pain of unclear etiology. Given that pain remains poorly controlled with short-acting opioids, will start MS Contin 30 mg q12h inan effort to achieve more consistent/steady relief. Plan: -Start MS Contin 30 mg q12h (Rx: 28 tabs, no refills) -Continue hydromorphone 8-12 mg q8h prn -Continue gabapentin 200 mg TID -Dulcolax tabs daily, Milk of Mg prn--titrate to daily BM -Patient instructed to update me within one week of starting long-acting morphine to discuss next steps -Currently is scheduled for in-person f/u with me on 09/16 OPIOID MANAGEMENT: Substance Use History: yes, recreational cannabis Therapeutic Cannabis: no but have discussed Opioid Treatment Agreement: 04/16/2022 Current Risk Stratification: ORT 2 Naloxone prescribed: yes and recently filled OK for early refill? no UDS: 01/30/2023 (as expected positive cannabinoids, buprenorphine, hydromorphone metabolites) PDMP reviewed: yes MEDD: 160 Pill Count: I have counseled Aly De [...] MD Physical Medicine & Rehabilitation Personal pager [phone] 08/06/2023 1:00 PM documented in this encounter Plan of Treatment Upcoming Encounters Date Type Department Care Team (Late st Contact Info) Description 03/17/2024 2:00 PM EDT TH Visit (TeleHealth) [place] [address] Yue Darby MD [facility] DR HOSPICE [place] [address] 04/12/2024 11:30 AM EDT Office [place] [phone] Yue Darby MD [facility] DR HOSPICE [place] [address] 04/28/2024 8:30 AM EDT TH Visit (TeleHealth) [place] [address] Yue Darby MD [facility] DR HOSPICE [place] [address] documented as of this encounter Visit Diagnoses Diagnosis Chronic left lower quadrant pain Abdominal pain, left lower quadrant documented in this encounter Care Teams Electrical Superintendent Relationship Specialty Start Date End Date Donte Padgett MD [address] [place] [address] PCP - General Family Medicine 08/24/15 documented as of this encounter
--- OUTSIDE RECORDS SUMMARY | 2024-03-04 16:54 | XMS_ITS | Encounter Summary ---
Author Organization [facility] Address [facility] [place] [address] Care Team Providers Care Epic Radiant Analyst Name Role Phone Donte Padgett MD Primary Care Provider [phone] Reason for Visit * Reason Onset Date Comments Medication Refill 06/04/2023 Encounter Details Date Type Department Care Team (Late st Contact Info) Description 06/04/2023 [place] [phone] Yue Darby MD [facility] HOSPICE AND [place] [address] Chronic left lower quadrant pain Social History [...] Telephone Encounter - Mickie Esparza RN - 06/04/2023 4:20 PM EST Prescription Renewal Request Name: Aly De La Torre : 1990 Prescription(s) Requested: Requested Prescriptions Pending Prescriptions Disp Refills HYDROmorphone (Dilaudid) 8 mg tablet 90 tablet 0 Sig: Take 1-1.5 tablets by mouth every 12 hours as needed for Pain. Take 1 tab for moderate pain (5-7/10). Take 1 1/2 tabs for severe pain (8-10/10). Date of Last Encounter: 02/27/23 -Continue to wean Jim, currently taking 750 mcg QOD. Okay to stop once he runs out. -Continue hydromorphone 8-12 mg daily prn -Continue gabapentin [phone] (increasing mid-day dose to three tabs) -[place] opioid prescribing guidelines Next Encounter: 06/16/2023 Date of Last Refill: 05/01/23 Medication category requirements (labs etc): n/a Status of request: Pended No Known Allergies Mickie Esparza RN 06/04/23 4:22 PM * Telephone Encounter - Aron Craig - 06/04/2023 3:35 PM EST Call Center / [place] Message Prescription Refill Request Clinical Licensed Investment Sales Assistant message Provider patient sees in Clinic: Yue Darby Caller and relationship (if other than patient-full name): Self Call back Number: [phone] Ok to leave a message: Yes Any issues needing to be addressed prior to medication refill? (ex: dose increase, not at pharmacy): [place] of Med: HYDROmorphone (Dilaudid) 8 mg tablet Strength of Pills: 8 mg Dosing Directions: Take 1-1.5 tablets by mouth every 12 hours as needed for Pain. Take 1 tab for moderate pain (5-7/10). Take 1 1/2 tabs for severe pain (8-10/10). How Patient is Currently Taking Medication: Between 1.5 - 3 per day. 30 or 90 Day Supply: 90 Pharmacy: [id number] - [place], [place] - [address] [place] [id number] Last Appointment: 02/27/23 Next Appointment: (IF CALL IS FROM PATIENT/FAMILY AND THERE IS NO FOLLOW UP SCHEDULED REVIEW CHART TO SEE WHEN APPOINTMENT IS NEEDED AND SCHEDULE BEFORE SENDING MESSAGE) N/A Is Patient out of Medication?: Yes documented in this encounter Plan of Treatment Upcoming Encounters Date Type Department Care Team (Late st Contact Info) Description 03/17/2024 2:00 PM EDT TH Visit (TeleHealth) [place] [address] Yue Darby MD [facility] DR HOSPICE AND [place] [address] 04/12/2024 11:30 AM EDT Office [place] [phone] Yue Darby MD [facility] DR HOSPICE AND [place] [address] 04/28/2024 8:30 AM EDT TH Visit (TeleHealth) [place] [address] Yue Darby MD [facility] DR HOSPICE AND [place] [address] documented as of this encounter Visit Diagnoses Diagnosis Chronic left lower quadrant pain Abdominal pain, left lower quadrant documented in this encounter Care Teams Epic Radiant Analyst Relationship Specialty Start Date End Date Donte Padgett MD [address] [place] [address] PCP - General Family Medicine 08/24/15 documented as of this encounter
--- OUTSIDE RECORDS SUMMARY | 2024-03-04 16:54 | XMS_ITS | Encounter Summary ---
Author Organization [facility] [place] [address] Care Team Providers Care Mill Laborer Name Role Phone Donte Padgett MD Primary Care Provider [phone] Reason for Visit * Reason Onset Date Comments Reminder Appointment 07/20/2023 Encounter Details Date Type Department Care Team (Late st Contact Info) Description 07/20/2023 Telephone [place] [phone] Yue Darby MD [facility] HOSPICE AND [place] [address] Reminder Appointment Social History Tobacco Use Types Packs/Day [...] encounter Miscellaneous Notes * Telephone Encounter - Leia Alvarez CMA - 07/20/2023 11:13 AM EST Unable to reach this patient by phone to review their medications and allergies prior to their upcoming tele-appointment with the Neurology provider. No message left. documented in this encounter Plan of Treatment Upcoming Encounters Date Type Department Care Team (Late st Contact Info) Description 03/17/2024 2:00 PM EDT TH Visit (TeleHealth) [place] [address] Yue Darby MD [facility] HOSPICE AND [place] [address] 04/12/2024 11:30 AM EDT Office [place] [address] Yue Darby MD [facility] HOSPICE AND [place] [address] 04/28/2024 8:30 AM EDT TH Visit (TeleHealth) [place] [address] Yue Darby MD [facility] HOSPICE AND [place] [address] documented as of this encounter Visit Diagnoses Not on filedocumented in this encounter Care Teams Mill Laborer Relationship Specialty Start Date End Date Donte Padgett MD [address] [facility] [place] [address] PCP - General Family Medicine 08/24/15 documented as of this encounter
--- OUTSIDE RECORDS SUMMARY | 2024-03-04 16:54 | XMS_ITS | Encounter Summary ---
Author Organization [facility] Address [facility] [place] [address] Care Team Providers Care Pan Helper Name Role Phone Donte Padgett MD Primary Care Provider [phone] [phone] Reason for Visit * Reason Onset Date Comments Medication Refill 03/25/2023 Encounter Details Date Type Department Care Team (Late st Contact Info) Description 03/25/2023 [place] [phone] Yue Darby MD [facility] DR HOSPICE AND [place] [address] Chronic left lower quadrant pain Social History [...] encounter Miscellaneous Notes * Telephone Encounter - Nic Storm - 03/25/2023 9:48 AM EDT Call Center / [place] Message Prescription Refill Request Clinical [place] message Provider patient sees in Clinic: Yue Darby MD Caller and relationship (if other than patient-full name): Aly De La Torre Call back Number: [phone] Ok to leave a message: Yes Any issues needing to be addressed prior to medication refill? (ex: dose increase, not at pharmacy): Name of Med: HYDROmorphone (Dilaudid) Strength of Pills: 8 mg tablet Dosing Directions: Take 1-1.5 tablets by mouth every 12 hours as needed for Pain. Take 1 tab for moderate pain (5-7/10). Take 1 1/2 tabs for severe pain (8-10/10). How Patient is Currently Taking Medication: As directed 30 or 90 Day Supply: 90 Pharmacy: [id number] [place] [address] Last Appointment: 02/27/23 Next Appointment: (IF CALL IS FROM PATIENT/FAMILY AND THERE IS NO FOLLOW UP SCHEDULED REVIEW CHART TO SEE WHEN APPOINTMENT IS NEEDED AND SCHEDULE BEFORE SENDING MESSAGE) 03/27/23 BTX is being rescheduled Is Patient out of Medication?: Yes documented in this encounter Plan of Treatment Upcoming Encounters Date Type Department Care Team (Late st Contact Info) Description 03/17/2024 2:00 PM EDT TH Visit (TeleHealth) [place] [address] Yue Darby MD [facility] DR HOSPICE AND [place] [address] 04/12/2024 11:30 AM EDT Office [place] [address] Yue Darby MD [facility] DR HOSPICE AND [place] [address] 04/28/2024 8:30 AM EDT TH Visit (TeleHealth) [place] [address] Yue Darby MD [facility] HOSPICE AND [place] [address] documented as of this encounter Visit Diagnoses Diagnosis Chronic left lower quadrant pain Abdominal pain, left lower quadrant documented in this encounter Care Teams Pan Helper Relationship Specialty Start Date End Date Donte Padgett MD [address] [address] PCP - General Family Medicine 08/24/15 documented as of this encounter
--- OUTSIDE RECORDS SUMMARY | 2024-03-04 16:54 | XMS_ITS | Encounter Summary ---
Author Organization [facility] [place] [address] Care Team Providers Care Deputy Director Of Finance Name Role Phone Donte Padgett MD Primary Care Provider [phone] [phone] Reason for Visit * Reason Onset Date Comments Error 08/27/2023 Encounter Details Date Type Department Care Team (Late st Contact Info) Description 08/27/2023 [place] [address] Yue Darby MD [facility] HOSPICE AND [place] [address] Social History Tobacco Use Types Packs/Day Years [...] PM EDT TH Visit (TeleHealth) [place] [address] Yue Darby MD [facility] HOSPICE AND [place] [address] 04/12/2024 11:30 AM EDT [place] [address] Yue Darby MD [facility] DR HOSPICE [place] [address] 04/28/2024 8:30 AM EDT TH Visit (TeleHealth) [place] [address] Yue Darby MD [facility] HOSPICE AND [place] [address] documented as of this encounter Visit Diagnoses Not on filedocumented in this encounter Care Teams Deputy Director Of Finance Relationship Specialty Start Date End Date Donte Padgett MD [address] [place] [address] PCP - General Family Medicine 08/24/15 documented as of this encounter
--- OUTSIDE RECORDS SUMMARY | 2024-03-04 16:54 | XMS_ITS | Encounter Summary ---
Author Organization [facility] Address [facility] [place] [address] Care Team Providers Care Principle Software Engineer Name Role Phone Donte Padgett MD Primary Care Provider [phone] [phone] Encounter Details Date Type Department Care Team (Late st Contact Info) Description 10/23/2023 Notes [place] [address] Yue Darby MD [facility] DR HOSPICE [place] [address] Social History Tobacco Use Types Packs/Day Years [...] Progress Notes * Yue Darby MD - 10/23/2023 1:35 PM EDT Brief Physiatry Encounter for Opioid Management Responded to patient's recent [facility] message. He has been using hydromorphone 8-12 mg 3 times daily. Has not noted an improvement in pain since starting fentanyl 50 mcg/hr TD on 10/18. OPIOID MANAGEMENT: Substance Use History: none Therapeutic Cannabis: recreational use only Opioid Treatment Agreement: completed 03/14/2022 Current Risk Stratification: moderate (ORT=4) Comments about ORT R in relation to this patient: Mother with long-standing mental illness, unclearSUD history; brother with previous TISH; age 16-45; no personal history of substance abuse of psychologic disease Naloxone prescribed: yes OK for early refill? yes UDS: 01/30/2023 as expected (repeat yearly) PDMP reviewed: yes, 10/23/2023 MEDD: 244 Pill Count: 28 hydromorphone remaining on 10/18 I have counseled Aly De La Torre about the safe use of opioids including dosing, side effects, safestorage and disposal. They know to contact the clinic if he has questions related to pain medication use. He has been advised that the concurrent use of benzodiazepines and opioids can increase the risk ofoversedation and possibly respiratory depression. Plan: For chronic LLQ pain: -INCREASE fentanyl to 50 to 75 mcg/hr -INCREASE hydromorphone 8 mg 1-1.5 mg tabs to q8h as needed for pain unrelieved by the above -Pregabalin 150 mg TID Yue Darby MD Physical Medicine & Rehabilitation documented in this encounter Plan of Treatment Upcoming Encounters Date Type Department Care Team (Late st Contact Info) Description 03/17/2024 2:00 PM EDT TH Visit (TeleHealth) [place] [address] Yue Darby MD [facility] HOSPICE AND [place] [address] 04/12/2024 11:30 AM EDT [place] [address] Yue Darby MD [facility] HOSPICE [place] [address] 04/28/2024 8:30 AM EDT TH Visit (TeleHealth) [place] [address] Yue Darby MD [facility] HOSPICE [place] [address] documented as of this encounter Visit Diagnoses Not on filedocumented in this encounter Care Teams Principle Software Engineer Relationship Specialty Start Date End Date Donte Padgett MD [address] [place] [address] PCP - General Family Medicine 08/24/15 documented as of this encounter
--- OUTSIDE RECORDS SUMMARY | 2024-03-04 16:54 | XMS_ITS | Encounter Summary ---
Author Organization [facility] Address [facility] [place] [address] Care Team Providers Care Science Writer Name Role Phone Donte Padgett MD Primary Care Provider +1 [phone] Encounter Details Date Type Department Care Team (Late st Contact Info) Description 07/24/2023 8:30 AM EST TH Visit (TeleHealth) [place] [address] Yue Darby MD [facility] HOSPICE AND P[place]IAT[place] [address] Chronic left lower quadrant pain; Spasticity Social [...] * Patient Instructions* Yue Darby MD - 07/24/2023 8:30 AM EST Decrease gabapentin to two tabs three times daily x 3 days. THEN decrease to 1 tab three times daily. Continue hydromorphone 1-1.5 tabs every 8 hours as needed. This will mean you will run out sooner and will need a refill before the end of the month. The goal of this is to see if we can decrease drowsiness that you are experiencing during the day. We can consider weaning this further depending on how you are feeling. Search Locally for graduated zipper compression stockings (20-30 mm Hg) and try these to see if you can keep leg swelling down. documented in this encounter Progress Notes * Yue Darby MD - 07/24/2023 8:30 AM EST Rehabilitation Medicine Follow-up Note Referring Provider: Dr. [...] this appointment. Patient verbally consents to this video visit and understands that this visit may be billed, similar to a clinic office visit. Subjective Interval History: 4 week follow-up for initial BoNT injections on 06/16. Total of 400 units onabotulinum toxinA were injected into bilateral lower extremities. Leg spasms have decreased significantly. He's had to take tizanidine twice (bad days) but most days he can go without. Took six days for the effect to kick in then had relief. Transfers are easier.Continues on baclofen 20 mg Saw GI counselor earlier in the week. Also seen by Urology. CT with contrast done in [facility] showed no infection. Kidneys, bladder were normal on CT. Discussed difficulty in waking up to cath, sleeps deeply and wakes up early in the morning with dysreflexia, drenched in sweat. Caths for >1.5 L at that point. Does cath 300-400 mL before bed and again within 45 min-60 min of lying down us ually caths 300-400 again. Has tried setting an alarm but sleeps through it. Discussed suprapubic catheter but isn't interested in getting another device/tube. Doesn't have a lot of time between end of work day and dinner to put his legs up. Would consider compression stockings if he could find a pair that he could pull on easily. Continues to have LLQ pain. Worse with eating still. Missing work here and there. Three days lastweek, one day this week. Taking Dilaudid 1-1.5 tabs qmorning, again before leaving for work and again when comes home. It lasts only a few hours. Sometimes doesn't need the evening dose. Dozes off when watching TV. Head bobs when in shower, sending emails at work. Wonders about weaning the gabapentin, worries about backing down on baclofen and the hydromorphone right now. Functional Status as of 07/23/23 Kev for mobility in manual WC, ADLs, iADLs. 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 Thinks that WC seat is too high and this affects his posture. Has to hunch over to propel his chair. We also discussed how positioning in his chair may impact LE swelling. Has a referral for PT. Past Medical History: Active Ambulatory Problems Diagnosis [...] ENDOSCOPY performed by Lance Pandya MD at [facility] ENDOSCOPY PRO COLONOSCOPY, DIAGNOSTIC N/A 10/18/2015 COLONOSCOPY, DIAGNOSTIC performed by Seth Yeh MD at [facility] ENDOSCOPY PRO INJECTION ANES AGENT &/ STEROID ILIOINGUINAL IH NERVES Left 11/27/2021 INJECTION ANESTHETIC, ILIOINGUINAL, ILIOHYPOGASTRIC (WRVU 1.75) performed by Mika East MD [facility] PAIN MGMT MSO PRO UPPER GI ENDOSCOPY, BIOPSY N/A 10/18/2015 EGD WITH BIOPSY performed by Seth Yeh MD at [facility] ENDOSCOPY Medications: Current Outpatient Medications on File Prior to Visit Medication Sig Dispense Refill HYDROmorphone (Dilaudid) 8 mg tablet Take 1-1.5 tablets by mouth every 12 hours as needed for Pain.Take 1 tab for moderate pain (5-7/10). Take 1 1/2 tabs for severe pain (8-10/10). 90 tablet 0 naloxone (Narcan) 4 mg/actuation [place], Non-Aerosol 1 each by Nasal route as needed (respiratory depression from opioid overdose). 2 each 3 gabapentin (Neurontin) 400 mg capsule Take 2 capsules by mouth 3 times daily. Take 2 capsules in the morning, 3 capsules in the afternoon, 2 capsules in the evening. 210 capsule 3 tiZANidine (Zanaflex) 4 mg tablet Take 1 tablet by mouth every 6 hours as needed (spasms). 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 spinal disease 30 tablet 3 baclofen (Lioresal) 20 mg tablet Take 1 tablet by mouth 4 times daily. 120 tablet 3 baclofen (Lioresal) 10 mg tablet Take 10 mg by mouth 2 times daily. vardenafiL (Levitra) 20 mg tablet TAKE 1/2 [...] mouth daily. Indications: emptying of the bowel DULoxetine DR (Cymbalta) [address] capsule Take 1 capsule by mouth daily. (Patient not taking: Reported on 06/09/2023) 30 tablet 0 polyethylene glycoL (Miralax) 17 gram Powder in Packet Take 17 g by mouth daily. simethicone (MYLICON) 125 mg Tablet, Chewable Take 125 mg by mouth every 6 hours as needed for Heartburn. omeprazole 20 mg Tablet, Delayed Release (E.C.) [...] early refill? 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 Physical Exam: Gen: young man seated comfortably in manual WC, NAD HEENT: normocephalic, mucous membranes moist Resp: breathing comfortably on room air, no use of accessory muscles Neuro: awake, alert, face symmetric, speech fluent Psych: depressed appearing, affect full Remainder of exam limited due to this being a telehealth appt Data Review No new studies. Labs: 2016 Hgb 9.6, MCV 65 Chem panel and LFTs wnl Imaging: The below studies were personally reviewed. [...] thoracic spine 10/28/2021: FINDINGS: Evaluation of the deputy director of finance view shows previous cervical fusion at the [...] lower extremity spasticity. Aly historically has had chronic LLQ pain and difficulty with his daily bowel program taking up to several hours to perform due to discomfort and constipation. He developed a veronica-rectal abscess which increased his pain and bowel program challenges further. He is now s/p colostomy 12/19/22 with partial relief of pain as well as significant improvement in his QoL related to management of his bowels. His pain improved initially following ostomy but unfortunately he's had an increase in LLQ pain over the past few months. Today his pain is poorly controlled. A prior trial of Butrans and Belbuca were ineffective. He is having limited relief from hydromorphone and would likely benefit from a long-acting opioid for more durable pain relief. However, I worry about increasing his daily OME beforeaddressing his daytime drowsiness which is most likely due to polypharmacy. Finally, he's had good response from his initial trial of BoNT injections and is open to continuingthese. We will monitor for durable response and he will return for follow-up in person in 12 weeks for consideration of repeat injections. 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 -S/p Butrans and Belbuca trials (Butrans dose limited, Belbuca up to 750 mcg q12h with limited relief) -INCREASE frequency of hydromorphone to 8-12 mg every 8 hrs as needed -DECREASE gabapentin to 800 mg TID (down from [phone]) x3days, then decrease to 400 mg TID -Would benefit from the addition of long-acting opioid though worry right now about drowsiness, so holding off to see if drowsiness improves with gabapentin wean -[place] opioid prescribing guidelines #SCI-related spasticity -Return for Botox injections 09/15/23 -Baclofen 20 mg four times daily -Tizanidine 4 mg daily prn -Plan for chemodenervation with botulinum toxinA to bilateral lower extremities (total anticipated dose= 400 units) #Neurogenic bladder #Risk of autonomic dysreflexia with bladder distension #Lower extremity swelling -Trial compression stockings with zippers -Continue intermittent catheterization program #Opioid-induced constipation #Neurogenic bowel complicated by veronica-rectal abscess, hemorrhoids s/p colostomy -Dulcolax 1-2 tabs daily -Milk of Mg PRN Follow-up: 4 weeks telehealth, 09/14 in person for BoNT Yue Darby MD Physical Medicine & Rehabilitation This was a 60 minute visit spent on counseling the patient, documentation and coordination of care the day of the encounter. documented in this encounter Plan of Treatment Upcoming Encounters Date Type Department Care Team (Late st Contact Info) Description 03/17/2024 2:00 PM EDT TH Visit (TeleHealth) [place] [address] Yue Darby MD [facility] HOSPICE AND P[place]IATIVE [place] [address] 04/12/2024 11:30 AM EDT Office [place] [address] Yue Darby MD [facility] HOSPICE AND P[place]IATIVE [place] [address] 04/28/2024 8:30 AM EDT TH Visit (TeleHealth) [place] [address] Yue Darby MD [facility] HOSPICE AND P[place]IATIVE [place] [address] documented as of this encounter Visit Diagnoses Diagnosis Chronic left lower quadrant pain Abdominal pain, left lower quadrant Spasticity Abnormal involuntary movements documented in this encounter Care Teams Science Writer Relationship Specialty Start Date End Date Donte Padgett MD [address] [place] [address] PCP - General Family Medicine 08/24/15 documented as of this encounter
--- OUTSIDE RECORDS SUMMARY | 2024-03-04 16:54 | XMS_ITS | Encounter Summary ---
Author Organization [facility] Address [facility] [place] [address] Care Team Providers Care Alley Worker Name Role Phone Donte Padgett MD Primary Care Provider [phone] Encounter Details Date Type Department Care Team (Latest Contact Info) Description 09/15/2023 Travel Social History Tobacco Use Types Packs/Day [...] PM EDT TH Visit (TeleHealth) [place] [address] Yue Darby MD [facility] HOSPICE AND [place] [address] 04/12/2024 11:30 AM EDT Office Visit [place] [phone] Yue Darby MD [facility] HOSPICE AND [place] [address] 04/28/2024 8:30 AM EDT TH Visit (TeleHealth) [place] [address] Yue Darby MD [facility] DR HOSPICE AND [place] [address] documented as of this encounter Visit Diagnoses Not on filedocumented in this encounter Care Teams Alley Worker Relationship Specialty Start Date End Date Donte Padgett MD [address] [place] [address] PCP - General Family Medicine 08/24/15 documented as of this encounter
--- OUTSIDE RECORDS SUMMARY | 2024-03-04 16:54 | XMS_ITS | Encounter Summary ---
Author Organization [facility] Address [facility] [place] [address] Care Team Providers Care Edge Plugger Name Role Phone Donte Padgett MD Primary Care Provider [phone] [phone] Reason for Visit * Reason Onset Date Comments Medication Refill 06/18/2023 Encounter Details Date Type Department Care Team (Late st Contact Info) Description 06/18/2023 [place] [phone] Yue Darby MD [facility] HOSPICE [place] [address] Neuropathic pain of both legs; Spasticity Social History Tobacco Use Types Packs/Day [...] Telephone Encounter - Mickie Esparza RN - 06/18/2023 3:49 PM EST Prescription Renewal Request Name: Aly De La Torre : 1990 Prescription(s) Requested: Requested Prescriptions Pending Prescriptions Disp Refills gabapentin (Neurontin) 400 mg capsule 210 capsule 0 Sig: Take 2 capsules by mouth 3 times daily. Take 2 capsules in the morning, 3 capsules in the afternoon, 2 capsules in the evening. tiZANidine (Zanaflex) 4 mg tablet 30 tablet Sig: Take 1 tablet by mouth every 6 hours as needed (spasms). 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 spinal disease baclofen (Lioresal) 20 mg tablet 120 tablet 3 Sig: Take 1 tablet by mouth 4 times daily. Date of Last Encounter: 06/16/23 He is feeling down, expresses passive SI, occasionally thinks about dying to make the pain go away.He contracts for safety today and names his father and sister as reasons for living. He is interested in talking to somebody for coping support and asks that I reach back out to the counselor in GI to see if they are still available for individual counseling. -Message sent to Donna Gómez PhD re: patient's status on waiting list for individual counseling -Additional referral sent to neuropsychology -Encouraged patient to also talk to PCP office for possibility of referral for MH counseling Next Encounter: 07/24/2023 Date of Last Refill: 02/06/23, 01/30/23, 01/28/23 Medication category requirements (labs etc): n/a Status of request: Pended No Known Allergies Mickie Esparza RN 06/18/23 3:51 PM documented in this encounter Plan of Treatment Upcoming Encounters Date Type Department Care Team (Late st Contact Info) Description 03/17/2024 2:00 PM EDT TH Visit (TeleHealth) [place] [address] Yue Darby MD [facility] HOSPICE [place] [address] 04/12/2024 11:30 AM EDT [place] [address] Yue Darby MD [facility] HOSPICE [place] [address] 04/28/2024 8:30 AM EDT TH Visit (TeleHealth) [place] [address] Yue Darby MD [facility] DR HOSPICE [place] [address] documented as of this encounter Visit Diagnoses Diagnosis Neuropathic pain of both legs Mononeuritis of lower limb, unspecified Spasticity Abnormal involuntary movements documented in this encounter Care Teams Edge Plugger Relationship Specialty Start Date End Date Donte Padgett MD [address] [place] [address] PCP - General Family Medicine 08/24/15 documented as of this encounter
--- OUTSIDE RECORDS SUMMARY | 2024-03-04 16:54 | XMS_ITS | Encounter Summary ---
Author Organization [facility] Address [facility] [place] [address] Care Team Providers Care Heel Former Name Role Phone Donte Padgett MD Primary Care Provider [phone] [phone] Reason for Referral * Consultation (Routine) - Closed Specialty Diagnoses / Procedures Referred By Contac t Referred To Contact Neurology Diagnoses Spasticity Yue Darby MD [facility] HOSPICE [place] [address] Anette Ruiz MD [facility] [place] [address] Referral ID Status Reason Start Date Expiration Date V isits Requested Visits Authorized [id number] Closed Consult, Test & Treat 03/23/2023 03/22/2024 1 1 Encounter Details Date Type Department Care Team (Late st Contact Info) Description 03/23/2023 [place] [address] Yue Darby MD [facility] HOSPICE AND [place] [address] Spasticity Social History Tobacco Use Types Packs/Day [...] TH Visit (TeleHealth[place] [address] Yue Darby MD [facility] DR HOSPICE [place] [address] 04/12/2024 11:30 AM EDT [place] [address] Yue Darby MD [facility] HOSPICE [place] [address] 04/28/2024 8:30 AM EDT TH Visit (TeleHealth) [place] [address] Yue Darby MD [facility] HOSPICE [place] [address] Scheduled Referrals Name Type Priority Associated Diagnoses Orde r Schedule Referral to Neurology Outpatient Referral Routine Spasticity Ordered: 03/23/2023 documented as of this encounter Visit Diagnoses Diagnosis Spasticity Abnormal involuntary movements documented in this encounter Care Teams Heel Former Relationship Specialty Start Date End Date Donte Padgett MD [address] [place] [address] [address] [facility] [address] [place] [address] PCP - General Family Medicine 08/24/15 documented as of this encounter
--- OUTSIDE RECORDS SUMMARY | 2024-03-04 16:54 | XMS_ITS | Encounter Summary ---
Author Organization [facility] Address [facility] [place] [address] Care Team Providers Care Car Loader Name Role Phone Donte Padgett MD Primary Care Provider [phone] [phone] Encounter Details Date Type Department Care Team (Late st Contact Info) Description 03/25/2023 Telephone [place] [address] Yue Darby MD [facility] HOSPICE [place] [address] Social History Tobacco Use Types Packs/Day Years [...] * Telephone Encounter - Heena Long - 03/25/2023 1:37 PM EDT Please warm transfer to Heena * Telephone Encounter - Heena Long - 03/25/2023 1:32 PM EDT Copied from [facility] #[id number]. Topic: Specialty Dept CRMs - Appointment Needed >> Mar 25, 2023 9:50 AM Nic Storm wrote: Appt Needed Specialist : Yue Darby MD Relationship (if other than patient-full name): Appt. Type Needed: Other - BTX Reason for Visit: Aly Dagmar ArevaloWil called to ask that his 03/27/23 Botox appointment be rescheduled due to an insurance issue. Please contact Aly to discuss. documented in this encounter Plan of Treatment Upcoming Encounters Date Type Department Care Team (Late st Contact Info) Description 03/17/2024 2:00 PM EDT TH Visit (TeleHealth) [place] [address] Yue Darby MD [facility] [address] HOSPICE [place] [address] 04/12/2024 11:30 AM EDT Office [place] [address] Yue Darby MD [facility] [address] HOSPICE [place] [address] 04/28/2024 8:30 AM EDT TH Visit (TeleHealth) [place] [address] Yue Darby MD [facility] [address] HOSPICE [place] [address] documented as of this encounter Visit Diagnoses Not on filedocumented in this encounter Care Teams Car Loader Relationship Specialty Start Date End Date Donte Padgett MD [address] [place] [address] [address] [place] [address] PCP - General Family Medicine 08/24/15 documented as of this encounter
--- OUTSIDE RECORDS SUMMARY | 2024-03-04 16:54 | XMS_ITS | Encounter Summary ---
Author Organization [facility] Address [facility] [place] [address] Care Team Providers Care Rn Training Name Role Phone Donte Padgett MD Primary Care Provider [phone] [phone] Reason for Visit * Reason Onset Date Comments Medication Refill 12/08/2023 Encounter Details Date Type Department Care Team (Late st Contact Info) Description 12/08/2023 [place] [phone] Yue Darby MD [facility] HOSPICE [place] [address] Spasticity Social History Tobacco Use Types Packs/Day [...] encounter Miscellaneous Notes * Telephone Encounter - Angelica Azul RN - 12/08/2023 10:40 AM EDT Prescription Renewal Request Name: Aly De La Torre : 1990 Prescription(s) Requested: Requested Prescriptions Pending Prescriptions Disp Refills baclofen (Lioresal) 20 mg tablet 120 tablet 2 Sig: Take 1 tablet by mouth 4 times daily. Date of Encounter last in This Dept (If need an appointment send to secretaries to schedule): Yue Darby MD (Physician) Physical Medicine & Rehabilitation Encounter Date: 11/12/2023 Signed Next Encounter in This Dept: 01/21/2024 Date of Last Refill (for each medication): 11/06/2023 120:0 Medication category requirements (labs etc): n/a Status of request: Pended No Known Allergies Angelica Azul RN 12/08/23 10:40 AM * Telephone Encounter - Ann Marie Mccrary CMA - 12/08/2023 8:51 AM EDT Images from the original note were not included. documented in this encounter Plan of Treatment Upcoming Encounters Date Type Department Care Team (Late st Contact Info) Description 03/17/2024 2:00 PM EDT TH Visit (TeleHealth) Neurology at [place] [phone] Yue Darby MD [facility] DR HOSPICE [place] [address] 04/12/2024 11:30 AM EDT Office [place] [address] Yue Darby MD [facility] DR HOSPICE [place] [address] 04/28/2024 8:30 AM EDT TH Visit (TeleHealth) [place] [address] Yue Darby MD [facility] HOSPICE [place] [address] documented as of this encounter Visit Diagnoses Diagnosis Spasticity Abnormal involuntary movements documented in this encounter Care Teams Rn Training Relationship Specialty Start Date End Date Donte Padgett MD [address] [place] [address] PCP - General Family Medicine 08/24/15 documented as of this encounter
--- OUTSIDE RECORDS SUMMARY | 2024-03-04 16:54 | XMS_ITS | Encounter Summary ---
Author Organization [facility] [place] [address] Care Team Providers Care Punch Card Operator Name Role Phone Donte Padgett MD Primary Care Provider [phone] [phone] Encounter Details Date Type Department Care Team (Latest Contact Info) Description 08/10/2023 10:00 AM EST TH Visit (TeleHealth) [place] [phone] Aurelia Mayfield Depression, unspecified depression type; Abdominal [...] encounter Progress Notes * Aurelia Mayfield - 08/10/2023 10:00 AM EST [facility] Department of Medicine, Section of Gastroenterology & Hepatology Behavioral Health Follow-up Focus of visit: today I personally spent 60 minutes providing behavioral health intervention. Visitwas completed via telehealth. Patient is located at home. Visit date: 08/10/23 Visit number: 1 [facility] GI provider: Milady Gotti APRN Goals of treatment: Reduce pain and/or learn skills to better manage symptoms of pain Decrease symptoms of depression Increase engagement in activities of daily living and valued activities Enhance acceptance of chronic health conditions Changes since previous visit & visit content: Since previous visit, Aly reported that he has had consistent abdominal pain and spasms in his legs. He started on a new long-acting pain med prescribed by palliative med provider Dr. Darby, however, has not experienced changes yet. Reported spasms in legs are increasing which is disappointing because got a botox injection which helped for 3-4 weeks. He has another injection scheduled in a month. Aly made the observation that severity of stomach pain and leg spasms are correlated - does not know why this is. Today's session focused on building rapport, establishing treatment goals, and psychoeducation. Aly's treatment goals were related to reducing pain and pain- related interference in life. Specifically, he wants to be able to go to work and leave house more freely and also is interested in being able to date again, something that he discontinued over last 5 years due to pain. Introduced difference between nociception and generation of pain, and how the pain system can misfire (e.g., feel pain with no nociception, not feel pain with nociception). Also introduced role of fear and threat perception in turning up the volume on pain. Aly reflected on factors that make his pain more threateningincluding not understanding it's cause, feeling like he is going to have pain forever, helplessnessin face of pain, reduced options for daily living. Also reported he tends to hide pain from others which leads to feeling isolated and not advocating for himself. Provided rational for diaphragmatic b reathing and practiced round in session. Agreed to practice daily. Assessment: Diagnosis/formulation: Depression, chronic abdominal pain Mental status: No SI. Mental status WNL. Fully engaged in therapy process. Plan: -short term cognitive behavioral therapy -return in 2 Weeks. Aly De La Torre has my contact information and was encouraged to reach out to me in the future as needed. Assignment for next visit: Continuin) n/a New: 1) Practice diaphragmatic breathing at least 1x per day * Donna Bowser, PhD - 08/10/2023 10:00 AM EST I have reviewed this note and I agree with the assessment, plan, and treatment as documented by Aurelia Mayfield, doctoral audit intern in the Department of Psychiatry. The assessment and plan wereformulated in discussion with me and I agree with them as documented. Donna Bowser, Ph.D. documented in this encounter Plan of Treatment Upcoming Encounters Date Type Department Care Team (Late st Contact Info) Description 03/17/2024 2:00 PM EDT TH Visit (TeleHealth) [place] [address] Yue Darby MD [facility] HOSPICE AND [place] [address] 04/12/2024 11:30 AM EDT [place] [address] Yue Darby MD [facility] HOSPICE [place] [address] 04/28/2024 8:30 AM EDT TH Visit (TeleHealth) [place] [address] Yue Darby MD [facility] HOSPICE AND [place] [address] documented as of this encounter Visit Diagnoses Diagnosis Depression, unspecified depression type Abdominal pain, chronic, left lower quadrant Abdominal pain, left lower quadrant documented in this encounter Care Teams Punch Card Operator Relationship Specialty Start Date End Date Donte Padgett MD [address] [place] [address] [address] [place] [address] PCP - General Family Medicine 08/24/15 documented as of this encounter
--- OUTSIDE RECORDS SUMMARY | 2024-03-04 16:54 | XMS_ITS | Encounter Summary ---
Author Organization [facility] Address [facility] [place] [address] Care Team Providers Care Project Engineering Manager Name Role Phone Donte Padgett MD Primary Care Provider +1 [phone] Encounter Details Date Type Department Care Team (Latest Contact Info) Description 06/16/2023 Travel Social History Tobacco Use Types Packs/Day [...] PM EDT TH Visit (TeleHealth) [place] [address] Yue Darby MD [facility] HOSPICE AND [place] [address] 04/12/2024 11:30 AM EDT [place] [phone] Yue Darby MD [facility] HOSPICE [place] [address] 04/28/2024 8:30 AM EDT TH Visit (TeleHealth) [place] [phone] Yue Darby MD [facility] HOSPICE [place] [address] documented as of this encounter Visit Diagnoses Not on filedocumented in this encounter Care Teams Project Engineering Manager Relationship Specialty Start Date End Date Donte Padgett MD [address] [place] [address] PCP - General Family Medicine 08/24/15 documented as of this encounter
--- OUTSIDE RECORDS SUMMARY | 2024-03-04 16:54 | XMS_ITS | Encounter Summary ---
Author Organization [facility] Address [facility] [place] [address] Care Team Providers Care Doctor Naturopathic Name Role Phone Donte Padgett MD Primary Care Provider +1 [phone] Encounter Details Date Type Department Care Team (Late st Contact Info) Description 09/24/2023 [place] [phone] Yue Darby MD [facility] [address] HOSPICE AND [place] [address] Social History Tobacco Use Types Packs/Day Years [...] Telephone Encounter - Yue Darby MD - 09/24/2023 5:57 PM EDT Physiatry Phone Encounter Responded to patient's recent [facility] message. He has been using hydromorphone 8-12 mg 4 times daily. Took long-acting morphine 90 mg x1 and did not continue as this made him feel dizzy/drowsy. He did tile picker the 100 mg tabs but states that he has not used these and does not intend to. Continues to be open to a trial of a long-acting opioid and is willing to try MS Contin 60 mg to see how he tolerates it. We discussed switching his gabapentin to pregabalin and he was open to tryingthis as well. OPIOID MANAGEMENT: Substance Use History: none Therapeutic [...] as expected (repeat yearly) PDMP reviewed: yes, 09/24/2023 MEDD: 160 Pill Count: 6 hydromorphone remaining I have counseled Aly De La Torre about the safe use of opioids including dosing, side effects, safestorage and disposal. They know to contact the clinic if he has questions related to pain medication use. He has been advised that the concurrent use of benzodiazepines and opioids can increase the risk ofoversedation and possibly respiratory depression. Plan: For chronic LLQ pain: -STOP MS Contin 100 mg q12h (never taken, instructed to return to pharmacy and place in drop box) -Trial MS Contin 60 mg q12h (has a supply of 30 mg tabs at home and instructed to take two 30 mg tabs twice daily) -INCREASE hydromorphone 8 mg 1-1.5 mg tabs from q8h to q6h as needed for pain unrelieved by the above -Rotate gabapentin (total 2800 mg daily) to pregabalin 150 mg TID Yue Darby MD [facility] Medicine [facility] documented in this encounter Plan of Treatment Upcoming Encounters Date Type Department Care Team (Late st Contact Info) Description 03/17/2024 2:00 PM EDT TH Visit (TeleHealth) [place] [address] Yue Darby MD [facility] HOSPICE AND [place] [address] 04/12/2024 11:30 AM EDT [place] [address] Yue Darby MD [facility] HOSPICE AND [place] [address] 04/28/2024 8:30 AM EDT TH Visit (TeleHealth) [place] [address] Yue Darby MD [facility] HOSPICE AND [place] [address] documented as of this encounter Visit Diagnoses Diagnosis Chronic left lower quadrant pain Abdominal pain, left lower quadrant Neuropathic pain of both legs Mononeuritis of lower limb, unspecified documented in this encounter Care Teams Doctor Naturopathic Relationship Specialty Start Date End Date Donte Padgett MD [address] [place] [address] PCP - General Family Medicine 08/24/15 documented as of this encounter
--- OUTSIDE RECORDS SUMMARY | 2024-03-04 16:54 | XMS_ITS | Encounter Summary ---
Author Organization [facility] Address [facility] [place] [address] Care Team Providers Care Battery Installer Name Role Phone Donte Padgett MD Primary Care Provider [phone] [phone] Reason for Visit * Reason Onset Date Comments Medication Refill 07/02/2023 Encounter Details Date Type Department Care Team (Late st Contact Info) Description 07/02/2023 Ref[place] [phone] Yue Darby MD [facility] HOSPICE AND PALLIATIVE [place] [address] Chronic left lower quadrant pain Social History [...] Telephone Encounter - Nicolle Martinez, RN - 07/03/2023 1:51 PM EST Left vm for pt letting him know medication was refilled. * Telephone Encounter - Leyla Romero - 07/02/2023 1:51 PM EST Call Center / [place] Message Prescription Refill Request Clinical [place] message Provider patient sees in Clinic: Yue Darby MD Caller and relationship (if other than patient-full name): Aly De La Torre Call back Number: [phone] Ok to leave a message: Yes Any issues needing to be addressed prior to medication refill? (ex: dose increase, not at pharmacy): [place] of Med: Hydromorphone (Dilaudid) tablet Strength of Pills: 8 mg Dosing Directions: Take 1-1.5 tablets by mouth every 12 hours as needed for Pain. Take 1 tab for moderate pain (5-7/10). Take 1 1/2 tabs for severe pain (8-10/10). How Patient is Currently Taking Medication: as prescribed 30 or 90 Day Supply: 30 day supply Pharmacy: [id number] - [address] Last Appointment: 06/16/2023 Next Appointment: 07/24/2023 Is Patient out of Medication?: Patient states that he will be out of this medication on Thursday. Patient states that in anticipation for the upcoming Holiday and his pharmacy hours patient mentions that he would like to continuous pickling line pickler this medication at his pharmacy on 07/04/2023. Thank you. documented in this encounter Plan of Treatment Upcoming Encounters Date Type Department Care Team (Late st Contact Info) Description 03/17/2024 2:00 PM EDT TH Visit (TeleHealth) [place] [address] Yue Darby MD [facility] [address] HOSPICE AND PALLIATIVE [place] [address] 04/12/2024 11:30 AM EDT Office [place] [address] Yue Darby MD [facility] HOSPICE AND PALLIATIVE [place] [address] 04/28/2024 8:30 AM EDT TH Visit (TeleHealth) [place] [address] Yue Darby MD [facility] [address] HOSPICE AND PALLIATIVE [place] [address] documented as of this encounter Visit Diagnoses Diagnosis Chronic left lower quadrant pain Abdominal pain, left lower quadrant documented in this encounter Care Teams Battery Installer Relationship Specialty Start Date End Date Donte Padgett MD [address] [place] [address] PCP - General Family Medicine 08/24/15 documented as of this encounter
--- OUTSIDE RECORDS SUMMARY | 2024-03-04 16:54 | XMS_ITS | Encounter Summary ---
Author Organization [facility] Address [facility] [place] [address] Care Team Providers Care Process Analyst Name Role Phone Donte Padgett MD Primary Care Provider [phone] [phone] Reason for Visit * Reason Onset Date Comments Medication Refill 10/20/2023 Encounter Details Date Type Department Care Team (Late st Contact Info) Description 10/20/2023 Ref[place] [phone] Yue Darby MD [facility] [address] HOSPICE AND [place] [address] Spasticity Social History Tobacco Use Types Packs/Day [...] Telephone Encounter - Angelica Azul RN - 10/20/2023 3:47 PM EDT 90 day script not appropriate at this time; original script sent by covering provider. * Telephone Encounter - Angelica Azul RN - 10/20/2023 12:06 PM EDT Prescription Renewal Request Name: Alysmitha De La Torre : 1990 Prescription(s) Requested: Requested Prescriptions Pending Prescriptions Disp Refills baclofen (Lioresal) 20 mg tablet 120 tablet 0 Sig: Take 1 tablet by mouth 4 times daily. Date of Encounter last in This Dept (If need an appointment send to secretaries to schedule): Yue Darby MD (Physician) Physical Medicine & Rehabilitation Encounter Date: 07/24/2023 Next Encounter in This Dept: 11/12/2023 Date of Last Refill (for each medication): 10/19/2023 60:0 Pharmacy requesting 90 day script Medication category requirements (labs etc): n/a Status of request: Pended No Known Allergies Angelica Azul RN 10/20/23 12:06 PM * Telephone Encounter - Ann Marie Mccrary CMA - 10/20/2023 9:53 AM EDT Pharmacy requesting 1 month supply. * Telephone Encounter - Ann Marie Mccrary CMA - 10/20/2023 9:52 AM EDT Images from the original note were not included. documented in this encounter Plan of Treatment Upcoming Encounters Date Type Department Care Team (Late st Contact Info) Description 03/17/2024 2:00 PM EDT TH Visit (TeleHealth) [place] [address] Yue Darby MD [facility] HOSPICE AND [place] [address] 04/12/2024 11:30 AM EDT Office [place] [address] Yue Darby MD [facility] HOSPICE AND [place] [address] 04/28/2024 8:30 AM EDT TH Visit (TeleHealth) [place] [address] Yue Darby MD [facility] [address] HOSPICE AND [place] [address] documented as of this encounter Visit Diagnoses Diagnosis Spasticity Abnormal involuntary movements documented in this encounter Care Teams Process Analyst Relationship Specialty Start Date End Date Donte Padgett MD [address] [place] [address] PCP - General Family Medicine 08/24/15 documented as of this encounter
--- OUTSIDE RECORDS SUMMARY | 2024-03-04 16:54 | XMS_ITS | Encounter Summary ---
Author Organization [facility] Address [facility] [place] [address] Care Team Providers Care Special Effects Specialist Name Role Phone Donte Padgett MD Primary Care Provider +1 -[phone] Encounter Details Date Type Department Care Team (Late st Contact Info) Description 10/01/2023 [place] [address] Yue Darby MD [facility] HOSPICE AND [place] [address] Chronic left lower quadrant pain Social History [...] PM EDT TH Visit (TeleHealth) [place] [address] Yue Darby MD [facility] HOSPICE AND [place] [address] 04/12/2024 11:30 AM EDT [place] [address] Yue Darby MD [facility] HOSPICE AND [place] [address] 04/28/2024 8:30 AM EDT TH Visit (TeleHealth) [place] [address] Yue Darby MD [facility] HOSPICE AND [place] [address] documented as of this encounter Visit Diagnoses Diagnosis Chronic left lower quadrant pain Abdominal pain, left lower quadrant documented in this encounter Care Teams Special Effects Specialist Relationship Specialty Start Date End Date Donte Padgett MD [address] [place] [address] PCP - General Family Medicine 08/24/15 documented as of this encounter
--- OUTSIDE RECORDS SUMMARY | 2024-03-04 16:54 | XMS_ITS | Encounter Summary ---
Author Organization [facility] [place] [address] Care Team Providers Care Steam Presser Name Role Phone Donte Padgett MD Primary Care Provider +1 [phone] Reason for Visit * Reason Onset Date Comments Reminder Appointment 11/06/2023 Encounter Details Date Type Department Care Team (Late st Contact Info) Description 11/06/2023 [place] [phone] Yue Darby MD [facility] HOSPICE AND [place] [address] Reminder Appointment Social History Tobacco Use Types [...] Telephone Encounter - Leia Alvarez CMA - 11/06/2023 10:55 AM EDT Spoke with patient and confirmed all medications and allergies including reconciliation of outside medications. documented in this encounter Plan of Treatment Upcoming Encounters Date Type Department Care Team (Late st Contact Info) Description 03/17/2024 2:00 PM EDT TH Visit (TeleHealth) [place] [address] Yue Darby MD [facility] HOSPICE AND [place] [address] 04/12/2024 11:30 AM EDT Office Visit Neurology at [place] [phone] Yue Darby MD [facility] HOSPICE AND [place] [address] 04/28/2024 8:30 AM EDT TH Visit (TeleHealth) Neurology at [place] [phone] Yue Darby MD [facility] HOSPICE AND [place] [address] documented as of this encounter Visit Diagnoses Not on filedocumented in this encounter Care Teams Steam Presser Relationship Specialty Start Date End Date Donte Padgett MD [address] [place] [address] PCP - General Family Medicine 08/24/15 documented as of this encounter
--- OUTSIDE RECORDS SUMMARY | 2024-03-04 16:54 | XMS_ITS | Encounter Summary ---
Author Organization [facility] Address [facility] [place] [address] Care Team Providers Care Cash Posting Clerk Name Role Phone Donte Padgett MD Primary Care Provider [phone] [phone] Encounter Details Date Type Department Care Team (Late st Contact Info) Description 07/03/2023 Orders [place] [address] Yue Darby MD [facility] HOSPICE [place] [address] Chronic left lower quadrant pain Social History [...] PM EDT TH Visit (TeleHealth) [place] [phone] Yue Darby MD [facility] HOSPICE [place] [address] 04/12/2024 11:30 AM EDT [place] [address] Yue Darby MD [facility] HOSPICE [place] [address] 04/28/2024 8:30 AM EDT TH Visit (TeleHealth) [place] [address] Yue Darby MD [facility] HOSPICE [place] [address] documented as of this encounter Visit Diagnoses Diagnosis Chronic left lower quadrant pain Abdominal pain, left lower quadrant documented in this encounter Care Teams Cash Posting Clerk Relationship Specialty Start Date End Date Donte Padgett MD [address] [place] [address] PCP - General Family Medicine 08/24/15 documented as of this encounter
--- OUTSIDE RECORDS SUMMARY | 2024-03-04 16:54 | XMS_ITS | Encounter Summary ---
Author Organization [facility] Address [facility] [place] [address] Care Team Providers Care Pharmacy Sales Assistant Name Role Phone Donte Padgett MD Primary Care Provider [phone] Reason for Referral * Psychiatric (Routine) - Closed Specialty Diagnoses / Procedures Referred By Contac t Referred To Contact Psychiatry Diagnoses Depression, unspecified depression type Yue Darby MD [facility] [place] [address] Ramakrishna Toledo, PhD [facility] [place] [address] Referral ID Status Reason Start Date Expiration Date V isits Requested Visits Authorized [id number] Closed Consult, Test & Treat 06/18/2023 06/17/2024 1 1 Reason for Visit * High Dollar Medication (Routine) - Closed Specialty Diagnoses / Procedures Referred By Contac t Referred To Contact Neurology Diagnoses Spasticity Procedures Abobotulinumtooxin A (Dysport) Authorization Request (IN CLINIC) TC ABOBOTULINUMTOXINA, 5 UNITS, INJ (DYSPORT) PRO CHEMODENERVATION ONE EXTREMITY 1-4 MUSCLE(S) Yue Darby MD [facility] AND [place] [address] Yue Darby MD [facility] [place] [address] Referral ID Status Reason Start Date Expiration Date V isits Requested Visits Authorized [id number] Closed Consult, Test & Treat 02/27/2023 02/27/2024 99 298 Encounter Details Date Type Department Care Team (Late st Contact Info) Description 06/16/2023 10:30 AM EST Office Visit Neurology at [facility] [place] [address] Yue Darby MD [facility] HOSP[facility] [place] [address] Spasticity; Depression, unspecified depression type Social History Tobacco [...] * Patient Instructions* Yue Darby MD - 06/16/2023 10:30 AM EST BOTULINUM TOXIN INJECTIONS DISCHARGE INSTRUCTIONS If this [...] excessive pain, drainage Unexpected muscle weakness Call if you have difficulty with swallowing or breathing Call the Neurology/Physiatry office at [phone] if you have any questions or concerns. A nurse is available Thursday through Thursday 8:00 am to 4:30 pm. documented in this encounter Progress Notes * Yue Darby MD - 06/16/2023 10:30 AM EST Physical Medicine & Rehabilitation [place] Procedure Note ID: Aly De La Torre is a 33 y.o. right-handed male with history of C6 sensory incomplete spinal cord injury, resulting tetraplegia, neurogenic bowel and neurogenic bladder with five-year history of left lower quadrant pain of unclear etiology. Indication for botulinum toxin: SCI-related spasticity Last injected: n/a Interval history: Increasing extension spasms (hips flex, knees and ankles extend) triggered by transfers from chair to bed, truck, shower have made it difficult for him to shower and leave the house. Feels like they all start in the quads. Was evaluated by Dr. Ruiz for consideration of ITB pump. Understands that spasticity is diffuse but also prefers to avoid additional surgeries if possible. Baseline exam: Tone: Modified Minnie Scale (MAS) [...] Right Left Right Left Deltoid Rectus femoris 75 50 Pectoralis major Vastus lateralis 25 25 Biceps brachii Vastus medialis 25 25 Brachioradialis Vastus intermedius 50 25 Pronator teres Iliopsoas 50 50 Flexor carpi radialis Flexor carpi ulnaris Flexor digitorum profundus Flexor digitorum superficialis Total units used: 400. Total units wasted: 0. The patient tolerated the procedure without any immediate complications. He will follow-up in 4 weeks via telehealth to assess response to injections and again in person in12 weeks for consideration of repeat injections. Yue Darby MD Physical Medicine & Rehabilitation Department of Neurology * Yue Darby MD - 06/16/2023 10:30 AM EST Brief Physical Medicine and Rehabilitation Follow-up Aly has been experiencing more abdominal pain for the past few weeks and is having a difficult time getting out of his house due to pain and spasms. He hasn't been able to go to work which is extremely discouraging. He is using hydromorphone appropriately and has not requested early refills. He was diagnosed with a bladder infection this past week and is now on antibiotics and steroids. He wonders whether he's been dealing with this infection since . We discussed how this infection could be contributing to increase pain and spasticity. Ostomy output has been good. He has a referral for Urology at [facility] in place--I encouraged him to follow-up on this. He is feeling down, expresses passive SI, [...] for possibility of referral for MH counseling Yue Darby MD Physical Medicine & Rehabilitation 30 minutes were spent in counseling the patient and in coordination of care on the day of this visit. documented in this encounter Plan of Treatment Upcoming Encounters Date Type Department Care Team (Late st Contact Info) Description 03/17/2024 2:00 PM EDT TH Visit (TeleHealth) [place] [address] Yue Darby MD [facility]OSP[facility] [place] [address] 04/12/2024 11:30 AM EDT Office [place] [address] Yue Darby MD [facility] AND [place] [address] 04/28/2024 8:30 AM EDT TH Visit (TeleHealth) [place] [address] Yue Darby MD [facility] AND [place] [address] Scheduled Referrals Name Type Priority Associated Diagnoses Order Schedule Referral to Neuropsychology Outpatient Referral Routine Depression, unspecified depression type Ordered: 06/18/2023 documented as of this encounter Visit Diagnoses Diagnosis Spasticity Abnormal involuntary movements Depression, unspecified depression type documented in this encounter Administered Medications Inactive Administered Medications - up to 3 most recent administrations Medication Order MAR Action Action Date Dose Rate Site botulinum toxin type A (Botox) injection 400 Units 400 Units, Intramuscular, ONCE, 1 dose, On Thu06/16/23 at 1500, Routine Given 06/16/2023 2:37 PM EST 400 Units documented in this encounter Care Teams Pharmacy Sales Assistant Relationship Specialty Start Date End Date Donte Padgett MD [address] [place] [address] PCP - General Family Medicine 08/24/15 documented as of this encounter
--- OUTSIDE RECORDS SUMMARY | 2024-03-04 16:55 | XMS_ITS | Encounter Summary ---
Author Organization [facility] Address [facility] [place] [address] Care Team Providers Care Resident Services Manager Name Role Phone Donte Padgett MD Primary Care Provider [phone] Encounter Details Date Type Department Care Team (Late st Contact Info) Description 12/22/2022 Ancillary Procedure [place] [address] Donte Padgett MD [address] [place], [place] [id number] Social History Tobacco Use Types Packs/Day Years [...] PM EDT TH Visit (TeleHealth) [place] [address] Yue Darby MD [facility] HOSPICE AND [place] [address] 04/12/2024 11:30 AM EDT [place] [address] Yue Darby MD [facility] HOSP[facility] AND [place] [address] 04/28/2024 8:30 AM EDT TH Visit (TeleHealth) Neurology at [facility] [place] [address] Yue Darby MD [facility] AND [place] [address] documented as of this encounter Procedures Procedure Name Priority Date/Time Associated Diagnosis Comments FILM LIBRARY STORAGE ONLY DX ABDOMEN Routine 12/22/2022 12:00 AM EDT documented in this encounter Results * Film Library- Storage Only DX Abdomen (12/22/2022 12:00 AM EDT) Narrative [facility] - 03/06/2023 1:32 PM EDT This exam is auto-finalizing. It's purpose is for storage only. Donte Padgett MD IMG FILM LIBRARY ORDERABLES [place], [place] documented in this encounter Visit Diagnoses Not on filedocumented in this encounter Care Teams Resident Services Manager Relationship Specialty Start Date End Date Donte Padgett MD [address] [place] [address] PCP - General Family Medicine 08/24/15 documented as of this encounter
--- OUTSIDE RECORDS SUMMARY | 2024-03-04 16:55 | XMS_ITS | Encounter Summary ---
Author Organization [facility] [place] [address] Care Team Providers Care Food Services Coordinator Name Role Phone Donte Padgett MD Primary Care Provider [phone] Encounter Details Date Type Department Care Team (Late Contact Info) Description 08/25/2022 [place] [address] Yue Darby MD [facility] HOSPICE [place] [address] Chronic, continuous use of opioids; Abdominal pain, chronic, left lower quadrant Social [...] PM EDT TH Visit (TeleHealth) [place] [address] Yue Darby MD [facility] HOSPICE [place] [address] 04/12/2024 11:30 AM EDT [place] [address] Yue Darby MD [facility] [address] HOSPICE [place] [address] 04/28/2024 8:30 AM EDT TH Visit (TeleHealth) [place] [address] Yue Darby MD [facility] DR HOSPICE [place] [address] documented as of this encounter Visit Diagnoses Diagnosis Chronic, continuous use of opioids Opioid type dependence, continuous Abdominal pain, chronic, left lower quadrant Abdominal pain, left lower quadrant documented in this encounter Care Teams Food Services Coordinator Relationship Specialty Start Date End Date Donte Padgett MD [address] [place] [address] PCP - General Family Medicine 08/24/15 documented as of this encounter
--- OUTSIDE RECORDS SUMMARY | 2024-03-04 16:55 | XMS_ITS | Encounter Summary ---
Author Organization [facility] Address [facility] [place] [address] Care Team Providers Care Dry Cleaning Teacher Name Role Phone Donte Padgett MD Primary Care Provider [phone] Reason for Visit * Reason Onset Date Comments Medication Refill 12/31/2022 Encounter Details Date Type Department Care Team (Late st Contact Info) Description 12/31/2022 [place] [phone] Yue Darby MD [facility] [address] HOSPICE [place] [address] Chronic left lower quadrant pain Social History [...] encounter Miscellaneous Notes * Telephone Encounter - Katelynn Hernandez Nieves - 12/31/2022 1:57 PM EDT Call Center / [facility] Message Prescription Refill Request Clinical [facility] [employer] message Provider patient sees in Clinic: Yue Darby Caller and relationship (if other than patient-full name): Self Call back Number: Ok to leave a message: any Any issues needing to be addressed prior to medication refill? (ex: dose increase, not at pharmacy): Name of Med: HYRDOmorphone Strength of Pills: 8 mg tablets Dosing Directions: Sig: Take 1-1.5 tablets by [...] (8-10/10). 30 or 90 Day Supply: 30 Pharmacy: [facility] in [place], [place] Last Appointment: 12/16/2022 Next Appointment: (IF CALL IS FROM PATIENT/FAMILY AND THERE IS NO FOLLOW UP SCHEDULED REVIEW CHART TO SEE WHEN APPOINTMENT IS NEEDED AND SCHEDULE BEFORE SENDING MESSAGE) 01/16/2023 Is Patient out of Medication?: Yes documented in this encounter Plan of Treatment Upcoming Encounters Date Type Department Care Team (Late st Contact Info) Description 03/17/2024 2:00 PM EDT TH Visit (TeleHealth) [place] [address] Yue Darby MD [facility] HOSPICE AND [place] [address] 04/12/2024 11:30 AM EDT Office [place] [address] Yue Darby MD [facility] HOSPICE [place] [address] 04/28/2024 8:30 AM EDT TH Visit (TeleHealth) [place] [address] Yue Darby MD [facility] HOSPICE [place] [address] documented as of this encounter Visit Diagnoses Diagnosis Chronic left lower quadrant pain Abdominal pain, left lower quadrant documented in this encounter Care Teams Dry Cleaning Teacher Relationship Specialty Start Date End Date Donte Padgett MD [address] [facility] [address] [place] [address] PCP - General Family Medicine 08/24/15 documented as of this encounter
--- OUTSIDE RECORDS SUMMARY | 2024-03-04 16:55 | XMS_ITS | Encounter Summary ---
Author Organization [facility] Address [facility] [place] [address] Care Team Providers Care Cook Taco Name Role Phone Donte Padgett MD Primary Care Provider [phone] Encounter Details Date Type Department Care Team (Late st Contact Info) Description 11/14/2022 9:30 AM EDT TH Visit (TeleHealth) [place] [address] Yue Jenkins MD [facility] [place] [address] Chronic left lower quadrant pain; Chronic, continuous use of opioids; Abdominal pain, chronic, left lower quadrant; Other hemorrhoids; Depression, unspecified depression type Social History Tobacco [...] of this encounter Progress Notes * Yue Jenkins MD - 11/14/2022 9:30 AM EDT Rehabilitation Medicine Follow-up Note Referring Provider: Dr. Cesar Fuentes Reason for Referral: LLQ pain, spasticity Primary Care Provider: Donte Padgett MD Patient ID: Aly De La Torre is a 32 y.o. 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 Subjective Interval History: Aly was referred to surgery 3 weeks ago at [facility]. He was found to have an abcess between his scrotum and rectum and was admitted for surgical drainage of the abscess and IV antibiotics. He was advised to stop digital stimulation for his bowel program. The pain around his rectum has improved significantly. They discussed pursuing a colostomy; after much consideration, he has decided to move forward for this and has a pre-op appointment on 12/03 and the procedure is scheduled for 12/22. He's struggled with his bowel routine for the last few years, especially since having issues with bleeding hemorrhoids. He's been hesitant to pursue an ostomy in the past due to the concern about it altering his appearance and stigma of having an appliance attached to his body. After the infection he's decided that it's worth the compromise. His bowel routine was taking several hours a day and he's looking forward to getting that time back. He is working on getting connected to a mental health counselor through his sister who is a HS counselor. He worries about his appearance with the ostomy bag in public. His abdominal pain continues to be pretty bad. He ran out of Merlin on Thursday and has three tabs left of hydromorphone. He's noticed a difference since missing the Belbuca the last few days. HM provides quick relief but wears off after 60-90 minutes. He's been taking 8-12 mg 1-2 times per day, usually right after his bowel program and after dinner. He denies having constipation. In fact, is taking milk of Mg once daily and bowels have been on the looser side. Finally, he missed his wheelchair clinic visit due to being admitted to the hospital. He'd like to hold off on rescheduling this for now but is interested in revisiting it once his surgery is done. Functional Status as of 11/14/22 Kev for mobility in manual WC, ADLs, iADLs. 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 Drives with hand controls. Past Medical History: Active Ambulatory Problems Diagnosis Date Noted ??? C6 spinal cord injury 02/26/2016 ??? Neurogenic bladder 05/22/2016 ??? Abdominal pain, chronic, left lower quadrant 08/18/2017 ??? Neurogenic bowel 08/18/2017 ??? Anxiety 11/30/2020 ??? Depression 11/30/2020 ??? Internal bleeding hemorrhoids 11/30/2020 ??? Migraine 11/30/2020 ??? Quadriplegia, C5-C7 incomplete 11/30/2020 ??? Reactive airway disease 11/30/2020 ??? Status post appendectomy 11/30/2020 ??? History of rectal abscess 11/14/2022 ??? Spasticity 11/14/2022 Resolved Ambulatory Problems Diagnosis Date Noted ??? Paraplegia 05/22/2016 ??? Chronic left hip pain 05/22/2016 ??? Joint pain, knee 01/09/2010 ??? Pain in joint, lower leg 01/09/2010 ??? Anemia 11/30/2020 ??? Closed fracture of fifth metacarpal bone 05/12/2009 ??? Esophagitis 11/30/2020 ??? Fatigue 11/30/2020 ??? Sepsis 11/30/2020 ??? Ilioinguinal neuralgia of left side 11/26/2021 ??? Chronic incomplete spastic tetraplegia 11/14/2022 ??? Hemorrhoids with complication 11/14/2022 No Additional Past Medical History Past Surgical History: Past Surgical History: Procedure Laterality Date ??? PRG UNLISTED DIAGNOSTIC GASTROENTEROLOGY PROCEDURE N/A 12/11/2015 VIDEO CAPSULE ENDOSCOPY performed by Lance Pandya MD at [facility] ENDOSCOPY ??? PRO COLONOSCOPY, DIAGNOSTIC N/A 10/18/2015 COLONOSCOPY, DIAGNOSTIC performed by Seth Yeh MD at [facility] ENDOSCOPY ? ? PRO INJECTION ANES AGENT &/ STEROID ILIOINGUINAL IH NERVES Left 11/27/2021 INJECTION ANESTHETIC, ILIOINGUINAL, ILIOHYPOGASTRIC (WRVU 1.75) performed by Mika East MD [facility] PAIN MGMT MSO ??? PRO UPPER GI ENDOSCOPY, BIOPSY N/A 10/18/2015 EGD WITH BIOPSY performed by Seth Yeh MD at [facility] ENDOSCOPY Medications: Current Outpatient Medications on File Prior to Visit Medication Sig Dispense Refill ??? [DISCONTINUED] buprenorphine HCL (Belbuca) [address] 1 Film inside cheek 2 times daily. 60 each 0 ??? lidocaine (Xylocaine) 2 % jelly Apply topically as needed. Apply pea-sized amount to rectum prior to bowel routine, up to twice daily. 30 mL 0 ??? [DISCONTINUED] HYDROmorphone (Dilaudid) 8 mg tablet Take 1-2 tablets by mouth every 8 hours as needed for Pain. Take 1 tab for moderate pain (5-7/10). Take 2 tabs for severe pain (8-10/10). 84 tablet 0 ??? naloxegoL (Movantik) 25 mg tablet Take 1 tablet by mouth daily. 30 tablet 3 ??? baclofen (Lioresal) 10 mg Tablet Take 1 tablet by mouth 2 times daily as needed (increased spasms). Okay to take in addition to scheduled 20 mg dose 90 tablet 3 ??? baclofen (LIORESAL) 20 mg Tablet Take 1 tablet by mouth 4 times daily. 120 tablet 3 ??? DULoxetine DR (Cymbalta) 30 mg Capsule, Delayed Release(E.C.) Take 1 capsule by mouth 2 times daily. (Patient not taking: Reported on 07/11/2022) 30 tablet 11 ??? polyethylene glycoL (Miralax) 17 gram Powder in Packet Take 17 g by mouth daily. ??? naloxone (Narcan) 4 mg/actuation [place], Non-Aerosol 1 each by Nasal route as needed (respiratory depression from opioid overdose). 2 each 3 ??? simethicone (MYLICON) 125 mg Tablet, Chewable Take 125 mg by mouth every 6 hours as needed for Heartburn. ??? naloxone (Narcan) 4 mg/actuation [place], Non-Aerosol 1 each by Nasal route as needed (respiratory depression from opioid overdose). 2 each 3 ??? bisacodyL (Dulcolax) [address] 1 suppository rectally daily. (Patient not taking:Reported on 09/18/2022) 60 suppository 3 ??? omeprazole 20 mg Tablet, Delayed Release (E.C.) Take 20 mg by mouth daily as needed. Prn heartburn, takes 2-3 x/week No current facility-administered medications on [...] yes OK for early refill? yes UDS: 07/11/2022 + buprenorphine and cannabinoids PDMP reviewed: yes 11/14/2022 MEDD: 80-90 on average Pill Count: 3 (8 mg hydromorphone tabs) I have counseled Aly De La [...] hearing loss, difficulty swallowing, sore throat CV: Denies chest pain, palpitations, swelling of the extremities Pulm: Denies cough, wheezing, shortness of breath GI: Denies nausea, vomiting, abdominal pain, constipation : Denies difficulty urinating, pain with urination MSK: Per HPI Psych: Denies anxiety, depressed mood, hallucinations Neuro: Per HPI Objective There were no vitals taken for this visit. Physical Exam: Gen: young man seated comfortably in manual WC, performs frequent weight shifts as visit progresses, mildly distress due to discomfort from sitting toward end of visit HEENT: normocephalic, mucous membranes moist, sclera anicteric, pupils equal Resp: breathing comfortably on room air, no use of accessory muscles Neuro: awake, alert, face symmetric, speech fluent Psych: pleasant, conversant Data Review No new studies. Outside records unavailable for review. Labs: 2015 Hgb 9.6, MCV 65 Chem panel and LFTs wnl ?? Imaging: The below studies were personally reviewed. Results have previously been discussed with patient. ?? MRI angiogram abd wwo contrast 06/05/2022: FINDINGS: [...] right renal arteries. Left renal artery: Normal. ?? Portal vein, superior mesenteric vein, splenic vein are patent. ?? Lower chest: Normal. ?? Liver: Normal size and signal intensity. No lesions. Bile ducts: Nondilated. Gallbladder: No gallstones. Normal caliber wall. Pancreas: Normal. Spleen: Normal. Adrenals: Normal. Kidneys: Normal. ?? Lymph nodes: No enlarged lymph nodes. Bowel: Nondilated, no inflammatory changes. Peritoneum and mesentery: No ascites or loculated fluid collection. ?? Marrow Signal: Normal. ?? IMPRESSION Normal SMA/SMV. No evidence of SMA syndrome or mesenteric ischemia. ?? CT Abd/Pelvis with contrast 02/24/2022: FINDINGS: Lower [...] of neurogenic bladder in the medical record. ?? Vasculature: Mild mixed calcified and noncalcified atheromatous disease of the infrarenal abdominal aorta. Lymph Nodes: No enlarged lymph nodes. Bowel: Nondilated, no wall thickening. Normal appendix and terminal ileum. Peritoneum and mesentery: No ascites, free air, or loculated fluid collection. No mesenteric inflammation. Abdominal wall: Normal. ?? Reproductive organs: Normal. Osseous structures: No suspicious lesions. ?? IMPRESSION ?? 1. ??No acute pathology identified in the abdomen or pelvis. 2. ??Hepatomegaly with hepatic steatosis. 3. ??Mild mixed calcified and noncalcified atheromatous disease of the infrarenal abdominal aorta. ?? MRI thoracic spine 10/28/2021: FINDINGS: Evaluation of the shot coat tender view shows previous cervical fusion at the C5, C6 and C7 level. ?? Marrow signal intensity throughout the thoracic spine is normal. Vertebral bodies show normal height. Intervertebral disks show normal height and signal intensity. ?? The thoracic cord appears mildly thinned but without focal signal abnormality. ?? Degenerative changes are noted at the T10-11 level with a broad symmetric disc bulge indenting the ventral thecal sac narrowing the spinal canal ?? The left facet shows moderate hypertrophy in this narrows the posterior lateral aspect of the canal. The left intervertebral foramen is narrowed due to hypertrophy. ?? No paraspinal abnormalities are identified. ?? IMPRESSION Generally somewhat thinned appearance of the cord likely related to upper cervical injury. ?? Degenerative changes at T10-11 with moderate spinal and foraminal stenosis. ?? Ultrasound retroperitoneal complete 07/23/2021: 1. ??No collecting system dilatation or sonographically evident nephrolithiasis, bilaterally. ??2. ??Symmetric sized kidneys at the upper limits of normal with normal cortical echogenicity and visualized cortical thickness. ??3. ??Limited evaluation of the bladder due to incomplete distention. No visualized bladder calculi. ?? XR Pelvis and Hip 2 views LEFT 07/23/2021: No fracture or dislocation. Osteoarthropathy of both hip joints characterized by acetabular sclerosis and mild joint space narrowing. Sacroiliac joints are symmetric. Ankylosis of the pubic symphysis. ?? A subcentimeter amorphous calcific density projects over the upper medial left thigh, likely vascular. There is also calcific density projecting over the right inferior pubic ramus which is indeterminate in location on this single AP view. ?? IMPRESSION 1. ??Bilateral hip osteoarthropathy. 2. ??No evidence of heterotopic ossification. ?? Previously reviewed studies: Hgb 08/17/18 9.9 Anoscopy 03/08/18 multiple bleeding internal hemorrhoids ?? Video capsule endoscopy 12/11/2015: Normal small bowel study. ?? Upper GI endoscopy 10/18/2015: Distal LA grade A esophagitis, irregular Z line, normal stomach and duodenum. Biopsied for celiac disease. ?? Colonoscopy 10/18/2015: The entire examined colon appeared normal. The terminal ileum appeared normal. Rectal exam with poor rectal tone, anal prolapse. ?? Surgical pathology 10/18/2015: Negative for metaplasia or diagnostic abnormality. ?? MRI??pelvis MSK 06/06/2016:?? FINDINGS: Joint space: There is symmetric small bilateral hip joint fluid, which may be physiologic. ?? Bones and articular cartilage: There is no fracture, bone marrow edema, or evidence of avascular necrosis. Hip joint??alignment is normal. No focal cartilage defect is discerned. ?? Tendons and bursae: There is no tendon abnormality or evidence of bursitis. ?? Acetabular labrum: No acetabular labral tear is identified on these non- arthrogram images. ?? Other: There is apparent diffuse urinary bladder wall thickening, which could be partly due to urinary bladder underdistention and/or neurogenic bladder. ?? IMPRESSION No bone marrow signal abnormality or fracture. No tendon abnormality or evidence of bursitis. Symmetric small bilateral hip joint fluid, which may be??physiologic. ?? MRI lumbar spine without contrast 06/06/2016:??There are disc degenerative changes and facet arthropathy at T11-12 and T12-L1. Intervertebral disc spaces in the lumbar spine are preserved in height and signal. Facet arthropathy is seen throughout the lumbar spine, mild in extent. ?? No aggressive marrow lesions. No pars defects. No abdominal aortic aneurysm. Conus demonstrates normal size shape and signal intensity and terminates appropriately at the T12 level. ?? Findings at specific levels: T11-12: There is moderate canal narrowing secondary to combination of an annular bulge and facet arthropathy with some buckling of the ligamentum. Foramina are not completely visualized but appear narrowed on the right. ?? T12-L1: Moderate central stenosis secondary to annular bulge and facet arthropathy. There is mild bilateral foraminal narrowing ?? L1-2: There is a minimal annular bulge and facet arthropathy with very mild effacement of the ventral thecal sac. No foraminal narrowing. ?? L2-3: Minimal bulge without canal stenosis or foraminal narrowing. ?? L3-4: Minimal bulge without canal stenosis. Mild caudal foraminal narrowing bilaterally. ?? L4-5: Minimal annular bulge without canal stenosis. Mild caudal foraminal narrowing bilaterally. ?? L5-S1: Minimal bulge without effacement of the ventral thecal sac. No foraminal narrowing. ?? IMPRESSION Degenerative changes greatest at the T11-12 and T12-L1 levels and described in detail in the body the report. ?? MRI enterography 08/24/2015:??GI tract: No dilated small or large bowel, bowel wall thickening, or mesenteric??inflammation. ??No mucosal hyperenhancement. No evidence of Crohn's disease. The terminalileum is visualized and is normal. The appendix is normal. No free fluid or focal fluid collection. ?? Liver: Normal. Spleen: Normal. Kidneys/adrenal glands: Normal. Pancreas: Normal. Lymph nodes: No lymphadenopathy. Osseous structures: No marrow signal abnormality. ?? IMPRESSION:??Normal study. No evidence of Crohn's disease. ?? CT-guided psoas muscle injection 09/17/2016:??EXAMINATION: CT GUIDED INJECTION TENDON ?? CLINICAL HISTORY: psoas muscle injection ?? TECHNIQUE: The procedure and risks were described informed consent was obtained. Patient was prepped and draped in a sterile manner 1% lidocaine was used for local anesthesia. Using CT fluoroscopic guidance a 20-gauge spinal needle was advanced into the left iliopsoas muscle. Thereafter 8 cc of Bupivicaine were??injected. ?? COMPARISON: Lumbar spine MRI dated 06/06/2016 ?? FINDINGS: Normal attenuation and bulk of the psoas muscles. Preprocedure and postprocedure pain was evaluatedby the attending pain physician, Dr. Robinson East ?? IMPRESSION Successful uncomplicated diagnostic injection of the left psoas muscle with bupivacaine. Patient tofollow-up in the pain clinic. Assessment/Plan Assessment: 32 y.o. male with history of traumatic SCI, C6 sensory incomplete tetraplegia, with associated neurogenic bowel, neurogenic bladder and lower extremity spasticity.? At this point he's had an extensive work-up for chronic left lower quadrant pain, considering potential GI and musculoskeletal etiologies, as well as genitourinary and gastrointestinal causes. Unfortunately, the etiology remains unclear. Nonetheless, this pain is significantly impacting his qualityof life and function. 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 He accepts that we may not be able to identify a cause for this pain but would still benefit from amultimodal approach to pain management. He does not desire to be on chronic long-term opioids. He'sbeen referred back to interventional pain for consideration of additional interventions including an IT pump for analgesia and is interested in mental health counseling. In addition, we've previouslydiscussed making modifications to his manual wheelchair to facilitate pressure and pain relief during the day. ?? More recently he's had complications from digital stimulation with his daily bowel program leading to a veronica-rectal abscess and acute increase in his chronic pain. He's had significant issues with hemorrhoids in the past as well. He remains attentive to his bowels and avoids constipation. We discussed his plan to pursue a colostomy today and I reassured him that this is not an uncommon procedure for somebody with spinal cord injury/neurogenic bowel to undergo. I will follow-up with him leading up to the procedure. It would be reasonable to continue his buprenorphine veronica-operatively and treatwith IV opioids on a short- term basis for acute pain related to his surgery. A equivalent dose to his current oral PRN dose would be 1.6-3.2 mg IV hydromorphone. If it is preferred, discontinuation of his buprenorphine veronica-operatively would be reasonable and would allow for lower PRN dosing. Recommendations: ??#Left lower quadrant pain, worse with eating #?ARFID -Referral to GI motility clinic and psychology for individual counseling (prefers private counseling and is in search of a provider currently) -INCREASE Belbuca from 650 mcg films BID to 700 mcg films BID (11/14/22) -Continue hydromorphone 8-12 mg BID prn (plan to stop this following his upcoming surgery) -Continue gabapentin 600 mg three times daily -[place] opioid prescribing guidelines #SCI-related spasticity -Baclofen 20 mg four times daily -Add flex dose baclofen 10 mg twice daily prn for increased spasms (encouraged to try morning first) -Consider IT baclofen pump; might benefit from addition of analgesics to the pump as well ?? #Anxiety disorder (worsened by pain) -Gabapentin as above -Duloxetine DR 30 mg daily (he's been off this for a while but is interested in resuming; prior dose was 30 mg BID) -Psych referral -Mindfulness exercises ?? #Risk of opioid-induced constipation #Neurogenic bowel -Continue daily or every other day Milk of Mg -Colostomy pending Follow-up: 1 month via telehealth; consider sending back to seating clinic after ostomy and painclinic appointments CC: PCP Dr. Ricarda Pradhan (General Surgery @[facility]) [address] [address] Yue Jenkins MD Physical Medicine & Rehabilitation A total of 60 minutes was spent on counseling, chart review, care coordination and documentation the day of this encounter. documented in this encounter Miscellaneous Notes * Addendum Note - Yue Jenkins MD - 11/14/2022 9:30 AM EDTAddended by: YUE JENKINS on: 11/14/2022 03:27 PM Modules accepted: Orders documented in this encounter Plan of Treatment Upcoming Encounters Date Type Department Care Team (Late st Contact Info) Description 03/17/2024 2:00 PM EDT TH Visit (TeleHealth) [place] [address] Yue Jenkins MD [facility] [place] [address] 04/12/2024 11:30 AM EDT [place] [address] Yue Jenkins MD [facility] [place] [address] 04/28/2024 8:30 AM EDT TH Visit (TeleHealth) [place] [address] Yue Jenkins MD [facility] [place] [address] documented as of this encounter Visit Diagnoses Diagnosis Chronic left lower quadrant pain Abdominal pain, left lower quadrant Chronic, continuous use of opioids Opioid type dependence, continuous Abdominal pain, chronic, left lower quadrant Abdominal pain, left lower quadrant Other hemorrhoids Depression, unspecified depression type documented in this encounter Care Teams Cook Taco Relationship Specialty Start Date End Date Donte Padgett MD [address] [facility] [address] [place] [address] PCP - General Family Medicine 08/24/15 documented as of this encounter
--- OUTSIDE RECORDS SUMMARY | 2024-03-04 16:55 | XMS_ITS | Encounter Summary ---
Author Organization [facility] [place] [address] Care Team Providers Care Integration Aide Name Role Phone Donte Padgett MD Primary Care Provider [phone] Reason for Visit * Reason Onset Date Comments Prior Authorization 07/24/2022 Encounter Details Date Type Department Care Team (Late st Contact Info) Description 07/24/2022 [place] [phone] Yue Darby MD [facility] HOSPICE [facility] [place] [address] Prior Authorization Social History Tobacco Use Types Packs/Day Years [...] encounter Miscellaneous Notes * Telephone Encounter - Radha Mora - 07/24/2022 8:49 PM EST Images from the original note were not included. ? Your request has been approved Request Reference Number: [id number]. RACHELLE ALFRED [id number] is approved through 07/05/2023. Your patient may now fill this prescription and it will be covered. * Telephone Encounter - Radha Mora - 07/24/2022 6:19 PM EST Images from the original note were not included. documented in this encounter Plan of Treatment Upcoming Encounters Date Type Department Care Team (Late st Contact Info) Description 03/17/2024 2:00 PM EDT TH Visit (TeleHealth) [place] [address] Yue Darby MD [facility]OSP[facility] [place] [address] 04/12/2024 11:30 AM EDT [place] [phone] Yue Darby MD [facility] HOSP[facility] [place] [address] 04/28/2024 8:30 AM EDT TH Visit (TeleHealth) [place] [address] Yue Darby MD [facility] [place] [address] documented as of this encounter Visit Diagnoses Not on filedocumented in this encounter Care Teams Integration Aide Relationship Specialty Start Date End Date Donte Padgett MD [address] [facility] [place] [address] PCP - General Family Medicine 08/24/15 documented as of this encounter
--- OUTSIDE RECORDS SUMMARY | 2024-03-04 16:55 | XMS_ITS | Encounter Summary ---
Author Organization [facility] Address [facility] [place] [address] Care Team Providers Care Spiral Binder Name Role Phone Donte Padgett MD Primary Care Provider +1 [phone] Reason for Visit * Reason Onset Date Comments Reminder Appointment 12/02/2022 Encounter Details Date Type Department Care Team (Late st Contact Info) Description 12/02/2022 [place] [phone] Yue Darby MD [facility] HOSPICE AND [place] [address] Reminder Appointment Social History Tobacco Use Types [...] Telephone Encounter - Leia Alvarez CMA - 12/02/2022 10:33 AM EDT Unable to reach this patient by phone to review their medications and allergies prior to their upcoming tele-appointment with the Neurology provider. No message left. documented in this encounter Plan of Treatment Upcoming Encounters Date Type Department Care Team (Late st Contact Info) Description 03/17/2024 2:00 PM EDT TH Visit (TeleHealth) [place] [address] Yue Darby MD [facility] DR HOSPICE AND [place] [address] 04/12/2024 11:30 AM EDT [place] [address] Yue Darby MD [facility] DR HOSPICE AND [place] [address] 04/28/2024 8:30 AM EDT TH Visit (TeleHealth) [place] [address] Yue Darby MD [facility] DR HOSPICE AND [place] [address] documented as of this encounter Visit Diagnoses Not on filedocumented in this encounter Care Teams Spiral Binder Relationship Specialty Start Date End Date Donte Padgett MD [address] [facility] [address] [place] [address] PCP - General Family Medicine 08/24/15 documented as of this encounter
--- OUTSIDE RECORDS SUMMARY | 2024-03-04 16:55 | XMS_ITS | Encounter Summary ---
Author Organization [facility] Address [facility] [place] [address] Care Team Providers Care Tray Checker Name Role Phone Donte Padgett MD Primary Care Provider +1 [phone] Reason for Visit * Consultation (Routine) - Closed Specialty Diagnoses / Procedures Referred By Contac t Referred To Contact Vascular Surgery Diagnoses Chronic left lower quadrant pain ANY PROVIDER Yue Darby MD [facility] DR HOSPICE [place] [address] [facility] Vascular Surg [address] [place] [address] Referral ID Status Reason Start Date Expiration Date V isits Requested Visits Authorized [id number] Closed Consult, Test & Treat 07/15/2022 07/15/2023 1 1 Encounter Details Date Type Department Care Team (Late st Contact Info) Description 07/31/2022 11:00 AM EST Office Visit [place] [address] Leyla Dillard MD [facility] [place] [address] Abdominal pain, chronic, left lower quadrant Social [...] Sign Reading Time Taken Comments Blood Pressure 90/49 07/31/2022 11:16 AM EST Pulse 63 07/31/2022 11:15 AM EST Temperature - - Respiratory Rate - - Oxygen Saturation - - Inhaled Oxygen Concentration - - Weight 102.1 kg (225 lb) 07/31/2022 11:15 AM EST Height 193 cm (6' 4) 07/31/2022 11:15 AM EST Body Mass Index 27.39 07/31/2022 11:15 AM EST documented in this encounter Progress Notes * Leyla Dlilard MD - 07/31/2022 11:00 AM EST OUTPATIENT VASCULAR SURGERY CONSULTATION Reason for Visit: Chronic abdominal pain History of Present Illness: Dario De La Torre is a 32 y.o. male referred by Milady Yao APRN for evaluation of his chronic abdominal pain. 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 He has symptoms of neurogenic bowel as well as chronic left lower quadrant pain for the past 6 years. He is undergone extensive work-up without identifying a source of his pain. He describes the pain as constant and focal in the left lower quadrant. He denies any epigastric pain or weight loss. Atherosclerotic Risk Factors: (n) DM (n) HTN (n) CAD (n) CHF (n) Hyperlipidemia (n) CVA reports that he has been smoking cigarettes. He has been smoking an average of .5 packs per day. Hehas never used smokeless tobacco. Patient Active Problem List Diagnosis Code ??? 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 Paraplegia G82.20 ??? Chronic left hip pain M25.552, G89.29 ??? Neurogenic bladder N31.9 ??? Abdominal pain, chronic, left lower quadrant R10.32, G89.29 ??? Joint pain, knee M25.569 ??? Neurogenic bowel K59.2 ??? Pain in joint, lower leg M25.569 ??? Anemia D64.9 ??? Anxiety F41.9 ??? Closed fracture of fifth metacarpal bone S62.308A ??? Depression F32.A ??? Esophagitis K20.90 ??? Fatigue R53.83 ??? Internal bleeding hemorrhoids K64.8 ??? Migraine G43.909 ??? Quadriplegia, C5-C7 incomplete G82.54 ??? Reactive airway disease J45.909 ??? Sepsis A41.9 ??? Status post appendectomy Z90.49 ??? 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 baclofen (Lioresal) 10 mg Tablet, Take 1 tablet by mouth 2 times daily as needed (increased spasms). Okay to take in addition to scheduled 20 mg dose, Disp: 90 tablet, Rfl: 3 ??? morphine IR (MSIR) 15 mg Tablet, Take 1 tablet by mouth every 12 hours as needed for Pain., Disp: 60 tablet, Rfl: 0 ??? gabapentin (Neurontin) 300 mg Capsule, Take 2 capsules by mouth 3 times daily for 90 days., Disp: 180 capsule, Rfl: 2 ??? buprenorphine (Butrans) 20 mcg/hour Patch Weekly, Change 1 patch on the skin every 7 days., Disp: 4 patch, Rfl: 0 ??? buprenorphine (Belbuca) 300 mcg Film, Place 1 Film inside cheek 2 times daily., Disp: 60 Film, Rfl: 0 ??? baclofen (LIORESAL) 20 mg Tablet, Take 1 tablet by mouth 4 times daily., Disp: 120 tablet, Rfl:3 ??? haloperidoL (Haldol) 2 mg Tablet, Take 1 tablet by mouth See Admin Instructions. Take 1 tablet at bedtime and may take an additional tablet BID PRN for nausea (Patient not taking: Reported on 07/11/2022), Disp: 120 tablet, Rfl: 0 ??? DULoxetine DR (Cymbalta) 30 mg Capsule, Delayed Release(E.C.), Take 1 capsule by mouth 2 times daily. (Patient not taking: Reported on 07/11/2022), Disp: 30 tablet, Rfl: 11 ??? polyethylene glycoL (Miralax) 17 gram Powder in Packet, Take 17 g by mouth daily., Disp: , Rfl: ??? naloxone (Narcan) 4 mg/actuation [place], Non-Aerosol, 1 each by Nasal route as needed (respiratory depression from opioid overdose)., Disp: 2 each, Rfl: 3 ??? simethicone (MYLICON) 125 mg Tablet, Chewable, Take 125 mg by mouth every 6 hours as needed forHeartburn., Disp: , Rfl: ??? naloxone (Narcan) 4 mg/actuation [place], Non-Aerosol, 1 each by Nasal route as needed (respiratory depression from opioid overdose)., Disp: 2 each, Rfl: 3 ??? bisacodyL (Dulcolax) 10 mg Suppository, Place 1 suppository rectally daily., Disp: 60 suppository, Rfl: 3 ??? omeprazole 20 mg Tablet, Delayed Release (E.C.), Take 20 mg by mouth daily as needed. Prn heartburn, takes 2-3 x/week, Disp: , Rfl: No Known Allergies Functional Status/Social Hx: Lives at home, disabled, + Tobacco Use, quit ETOH Family Hx: Negative for Thrombosis, Bleeding Disorders Physical Exam: BP 90/49 (BP Location (NBP): Left arm, Patient Position: Sitting) Pulse 63 Ht 193 cm (6' 4) Wt 102.1 kg (225 lb) BMI 27.39 kg/m?? General - NAD, appears stated age Neuro - Alert and Oriented, Motor Sensory grossly intact Skin - No prominent markings or lesions Ear, Nose, Throat - No masses, No lesions Cardiac - RRR, no murmurs Lungs - Clear Abd - Soft, NT, ND, no epigastric tenderness, + LLQ tenderness to palpation Musculoskeletal-Limited upper extremity mobility, no mobility of lower extremities Psych- alert oriented X3 Extremities - Warm, pink, no edema, brisk capillary refill Vascular Exam: R L Carotid 2/2 bruit (n) 2/2 bruit (n) Radial 2/2 2/2 Femoral 2/2 2/2 Popliteal 2/2 2/2 DP 2/2 2/2 PT 2/2 2/2 Labs: Recent Results (from the past 72 hour(s)) Duplex Study Visceral Arteries, Comp Result Value Ref Range VB Text Report Department: Vascular Surgery Lab Patient: [id number] (DARIO DE LA TORRE) CPT: 65426 Referring Physician: MILADY YAO Phone: Indications: 32 year old male with abdominal pain, ? MALS, mesenteric stenosis Findings: Unilateral Waveform PSV cm/s EDV cm/s Dionne Visceral Aorta 97 13 Celiac Artery, Proximal Upson-Biphasic 306 112 Celiac Artery, Mid Upson-Biphasic 187 Celiac Artery, Distal Upson-Biphasic 253 44 Sup Mes Artery Proximal Triphasic 163 10 Sup Mes Artery Middle Triphasic 130 0 Sup Mes Artery Distal Triphasic 117 11 Hepatic Artery Upson-Biphasic 140 29 Inf Mes Artery Triphasic 181 0 Interpretation: Patent celiac artery with elevated velocities through respiration consistent with a 50% or great er stenosis. There was better visualization of the celiac artery during deep inhalation with velocities ranging from (PSV 180-269 cm/s, EDV 46-71 cm/s) depending on depth of breath. The celiac artery was not as well visualized with deep exhalation and velocities ranged from (PSV 282-328 cm/s, EDV 112-125 cm/s). The splenic artery was not definitively identified, noting suspected very close origin with the celiac artery. Possible visualization noted velocities as follows (PSV 222 cm/s, EDV 52 cm/s); however, these velocities may have been superimposed celiac velocities. Patent common hepatic artery which originates from the aorta with no evidence of a significant stenosis. Patent superior and inferior mesenteric arteries with no evidence of significant stenosis. Comparison: No previous study in our vascular lab database for comparison. VB Text Report End of Report Studies: 02/24/2022 CT abdomen pelvis, images reviewed. There is independent origin of the splenic and commonhepatic arteries. Possible stenosis of the origin of the splenic artery seen on sagittal images. 06/05/2022 MR angiogram, images reviewed. The splenic, common hepatic, and left gastric arteries allhave independent origin from the aorta. There is evidence of stenosis at the origin of the splenic artery. No flowsheet data found. Assessment and Plan: 32 y.o. male with symptoms of chronic left lower quadrant pain in the setting of a spinal cord injury. Although duplex demonstrates some elevated velocities in what appears to bethe hepatic and splenic arteries, this could be a normal variant and his symptoms are not consistent with median arcuate ligament syndrome. I do not recommend any intervention at this time. He will follow-up with me on a as needed basis. The importance of smoking cessation. documented in this encounter Plan of Treatment Upcoming Encounters Date Type Department Care Team (Late st Contact Info) Description 03/17/2024 2:00 PM EDT TH Visit (TeleHealth) [place] [address] Yue Darby MD [facility] HOSPICE AND [place] [address] 04/12/2024 11:30 AM EDT Office [place] [address] Yue Darby MD [facility] HOSPICE [place] [address] 04/28/2024 8:30 AM EDT TH Visit (TeleHealth) [place] [address] Yue Darby MD [facility] HOSPICE [place] [address] Scheduled Referrals Name Type Priority Associated Diagnoses Orde r Schedule Referral to Vascular Surgery Outpatient Referral Routine Chronic left lower quadrant pain Ordered: 07/15/2022 documented as of this encounter Visit Diagnoses Diagnosis Abdominal pain, chronic, left lower quadrant Abdominal pain, left lower quadrant documented in this encounter Care Teams Tray Checker Relationship Specialty Start Date End Date Donte Padgett MD [address] [place] [address] PCP - General Family Medicine 08/24/15 documented as of this encounter
--- OUTSIDE RECORDS SUMMARY | 2024-03-04 16:55 | XMS_ITS | Encounter Summary ---
Author Organization [facility] Address [facility] [place] [address] Care Team Providers Care Communication Spec Name Role Phone Donte Padgett MD Primary Care Provider [phone] [phone] Encounter Details Date Type Department Care Team (Late st Contact Info) Description 12/09/2022 Telephone Occupational Therapy at [facility] [address] [place] [address] Anette Terry Social History Tobacco Use Types Packs/Day Years [...] encounter Miscellaneous Notes * Telephone Encounter - Anette Terry - 12/09/2022 12:04 PM EDT Left message for patient to reschedule wheelchair clinic. We are looking at March 03 as our nextavailable seating clinic. Asked patient to call back to discuss scheduling documented in this encounter Plan of Treatment Upcoming Encounters Date Type Department Care Team (Late st Contact Info) Description 03/17/2024 2:00 PM EDT TH Visit (TeleHealth) [place] [address] [facility] DR HOSPICE AND [place] [address] 04/12/2024 11:30 AM ED[place] [address] [facility] HOSPICE AND [place] [address] 04/28/2024 8:30 AM EDT TH Visit (TeleHealth) [place] [address] [facility] HOSPICE AND [place] [address] documented as of this encounter Visit Diagnoses Not on filedocumented in this encounter Care Teams Communication Spec Relationship Specialty Start Date End Date Donte Padgett MD [address] [place] [address] [address] [facility] 1 [place] [address] PCP - General Family Medicine 08/24/15 documented as of this encounter
--- OUTSIDE RECORDS SUMMARY | 2024-03-04 16:55 | XMS_ITS | Encounter Summary ---
Author Organization [facility] [place] [address] Care Team Providers Care Mud Jack Operator Name Role Phone Donte Padgett MD Primary Care Provider +1 -[phone] Encounter Details Date Type Department Care Team (Late st Contact Info) Description 11/12/2022 Telephone [place] [address] Noris Redmond Social History Tobacco Use Types Packs/Day Years [...] encounter Miscellaneous Notes * Telephone Encounter - Noris Redmond - 11/12/2022 11:08 AM EDT Left message. Need to schedule ARJUN with either Cordell or Donna from [facility]. 30 minutes documented in this encounter Plan of Treatment Upcoming Encounters Date Type Department Care Team (Late st Contact Info) Description 03/17/2024 2:00 PM EDT TH Visit (TeleHealth) [place] [address] Yue Darby MD [facility] DR HOSPICE [place] [address] 04/12/2024 11:30 AM EDT [place] [address] Yue Darby MD [facility] HOSPICE [place] [address] 04/28/2024 8:30 AM EDT TH Visit (TeleHealth) [place] [address] Yue Darby MD [facility] HOSPICE [place] [address] documented as of this encounter Visit Diagnoses Not on filedocumented in this encounter Care Teams Mud Jack Operator Relationship Specialty Start Date End Date Donte Padgett MD [address] [place] [address] PCP - General Family Medicine 08/24/15 documented as of this encounter
--- OUTSIDE RECORDS SUMMARY | 2024-03-04 16:55 | XMS_ITS | Encounter Summary ---
Author Organization [facility] [place] [address] Care Team Providers Care Stoker Installation Mechanic Name Role Phone Donte Padgett MD Primary Care Provider [phone] [phone] Reason for Referral * Consultation (Routine) - Canceled Specialty Diagnoses / Procedures Referred By Contac t Referred To Contact General Surgery Diagnoses Rectal prolapse Hemorrhoids, unspecified hemorrhoid type Braulio Pradhan MD [address] [place] [address] [facility] [address] [place] [id number] Referral ID Status Reason Start Date Expiration Date Visits Requested Visits Authorized [id number] Canceled Consult, Test & Treat PCP Updated and/or Approved 09/25/2022 09/25/2023 6 6 Encounter Details Date Type Department Care Team (Latest Contact Info) Description 09/25/2022 Transcribe Orders eDH Incoming Referrals [phone] Braulio Pradhan MD [address] [place] [address] Rectal prolapse; Hemorrhoids, unspecified hemorrhoid type Social History Tobacco Use Types Packs/Day [...] PM EDT TH Visit (TeleHealth) [place] [address] Yue Darby MD [facility] DR HOSPICE AND [place] [address] 04/12/2024 11:30 AM EDT [place] [address] Yue Darby MD [facility] HOSPICE AND [place] [address] 04/28/2024 8:30 AM EDT TH Visit (TeleHealth) [place] [address] Yue Darby MD [facility] [address] HOSPICE AND [place] [address] Scheduled Referrals Name Type Priority Associated Diagnoses Orde r Schedule Referral to Colorectal Surgery Outpatient Referral Routine Rectal prolapse Hemorrhoids, unspecified hemorrhoid type Ordered: 09/25/2022 documented as of this encounter Visit Diagnoses Diagnosis Rectal prolapse Hemorrhoids, unspecified hemorrhoid type documented in this encounter Care Teams Stoker Installation Mechanic Relationship Specialty Start Date End Date Donte Padgett MD [address] [place] [address] PCP - General Family Medicine 08/24/15 documented as of this encounter
--- OUTSIDE RECORDS SUMMARY | 2024-03-04 16:55 | XMS_ITS | Encounter Summary ---
Author Organization [facility] Address [facility] [place] [address] Care Team Providers Care Road Boss Name Role Phone Donte Padgett MD Primary Care Provider [phone] [phone] Encounter Details Date Type Department Care Team (Late st Contact Info) Description 01/01/2023 Orders [place] [address] Yue Darby MD [facility] HOSPICE AND [place] [address] Social History Tobacco Use Types Packs/Day Years [...] PM EDT TH Visit (TeleHealth) [place] [address] Yue Darby MD [facility] HOSPICE AND [place] [address] 04/12/2024 11:30 AM EDT [place] [address] Yue Darby MD [facility] HOSPICE AND [place] [address] 04/28/2024 8:30 AM EDT TH Visit (TeleHealth) [place] [address] Yue Darby MD [facility] HOSPICE AND [place] [address] documented as of this encounter Visit Diagnoses Not on filedocumented in this encounter Care Teams Road Boss Relationship Specialty Start Date End Date Donte Padgett MD [address] [place] [address] [address] [facility] 1 [place] [address] PCP - General Family Medicine 08/24/15 documented as of this encounter
--- OUTSIDE RECORDS SUMMARY | 2024-03-04 16:55 | XMS_ITS | Encounter Summary ---
Author Organization [facility] Address [facility] [place] [address] Care Team Providers Care Implementation Lead Name Role Phone Donte Padgett MD Primary Care Provider [phone] [phone] Encounter Details Date Type Department Care Team (Late st Contact Info) Description 01/16/2023 Notes [place] [address] Yue Darby MD [facility] DR HOSPICE AND [place] [address] Social History Tobacco Use Types Packs/Day Years [...] Progress Notes * Yue Darby MD - 01/16/2023 12:15 PM EDT Physical Medicine & Rehabilitation Telephone Encounter Aly missed his appointment with me today. He thought he was scheduled as a telehealth. I called to see how he is doing following his colostomy surgery on 12/19. Everything went well. He was in the hospital in [facility] for four days. He had his last home health visit yesterday. Is able to empty and replace the bag without issue. Has gone out a few times. Does have pain around ostomy site with transfers in and out of vehicles. Its difficult to distinguish between pain at stoma site or priorpain as the stoma is directly over the area that he typically feels is painful. He is taking the hydromorphone as frequently as he has in the past but does note a big improvement with how he is feeling during the day. No longer having to do a full bowel routine has cut his preparation time to go out to less than an hour. 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 Hopes to return to work in the fall. Feels like he's on track for this. He has 7 days left of the Belbuca. He is taking the hydromorphone 1.5 tablets once daily, sometimesan extra tablet after dinner time. He estimates that he has enough hydromorphone to get through thenext two weeks. Plan: Agrees to reschedule to in-person visit with me on 01/30/23 at 11:30 am. Check UDS at that visit. Will need Belbuca refilled next week. Yue Darby MD Physical Medicine & Rehabilitation Personal pager #[phone] 01/16/2023 12:16 PM documented in this encounter Plan of Treatment Upcoming Encounters Date Type Department Care Team (Late st Contact Info) Description 03/17/2024 2:00 PM EDT TH Visit (TeleHealth) [place] [address] Yue Darby MD [facility] HOSPICE AND [place] [address] 04/12/2024 11:30 AM EDT Office [place] [address] Yue Darby MD [facility] HOSPICE AND [place] [address] 04/28/2024 8:30 AM EDT TH Visit (TeleHealth) [place] [address] Yue Darby MD [facility] HOSPICE AND [place] [address] documented as of this encounter Visit Diagnoses Not on filedocumented in this encounter Care Teams Implementation Lead Relationship Specialty Start Date End Date Donte Padgett MD [address] [place] [address] PCP - General Family Medicine 08/24/15 documented as of this encounter
--- OUTSIDE RECORDS SUMMARY | 2024-03-04 16:55 | XMS_ITS | Encounter Summary ---
Author Organization [facility] Address [facility] [place] [address] Care Team Providers Care Power Wood Sawyer Name Role Phone Donte Padgett MD Primary Care Provider [phone] [phone] Encounter Details Date Type Department Care Team (Late st Contact Info) Description 08/01/2022 Orders [place] [address] Yue Darby MD [facility] HOSPICE AND [place] [address] Chronic, continuous use of opioids; Chronic left lower quadrant pain Social History [...] PM EDT TH Visit (TeleHealth) [place] [address] Yue Darby MD [facility] HOSPICE AND [place] [address] 04/12/2024 11:30 AM EDT [place] [address] Yeu Darby MD [facility] HOSPICE AND [place] [address] 04/28/2024 8:30 AM EDT TH Visit (TeleHealth) [place] [address] Yue Darby MD [facility] HOSPICE AND [place] [address] documented as of this encounter Visit Diagnoses Diagnosis Chronic, continuous use of opioids Opioid type dependence, continuous Chronic left lower quadrant pain Abdominal pain, left lower quadrant documented in this encounter Care Teams Power Wood Sawyer Relationship Specialty Start Date End Date Donte Padgett MD [address] [place] [address] PCP - General Family Medicine 08/24/15 documented as of this encounter
--- OUTSIDE RECORDS SUMMARY | 2024-03-04 16:55 | XMS_ITS | Encounter Summary ---
Author Organization [facility] Address [facility] [place] [address] Care Team Providers Care Farm Loan Representative Name Role Phone Donte Padgett MD Primary Care Provider [phone] [phone] Reason for Visit * Reason Onset Date Comments Medication Refill 12/02/2022 Encounter Details Date Type Department Care Team (Late st Contact Info) Description 12/02/2022 [place] [phone] Yue Darby MD [facility] HOSPICE AND [place] [address] Spasticity Social History Tobacco Use Types Packs/Day [...] encounter Miscellaneous Notes * Telephone Encounter - Julita Ferrer RN - 12/02/2022 4:28 PM EDT Refill request rec'd via fax documented in this encounter Plan of Treatment Upcoming Encounters Date Type Department Care Team (Late st Contact Info) Description 03/17/2024 2:00 PM EDT TH Visit (TeleHealth) [place] [phone] Yue Darby MD [facility] HOSPICE AND [place] [address] 04/12/2024 11:30 AM EDT Office [place] [address] Yue Darby MD [facility] HOSPICE AND [place] [address] 04/28/2024 8:30 AM EDT TH Visit (TeleHealth) [place] [address] Yue Darby MD [facility] HOSPICE AND [place] [address] documented as of this encounter Visit Diagnoses Diagnosis Spasticity Abnormal involuntary movements documented in this encounter Care Teams Farm Loan Representative Relationship Specialty Start Date End Date Donte Padgett MD [address] [place] [address] PCP - General Family Medicine 08/24/15 documented as of this encounter
--- OUTSIDE RECORDS SUMMARY | 2024-03-04 16:55 | XMS_ITS | Encounter Summary ---
Author Organization [facility] Address [facility] [address] Care Team Providers Care Boring Machine Operator Double End Name Role Phone Donte Padgett MD Primary Care Provider [phone] [phone] Reason for Referral * Occupational Therapy (Routine) - Closed Specialty Diagnoses / Procedures Referred By Contac t Referred To Contact Neurology Diagnoses 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, sequela Procedures Seating clinic Yue Darby MD [facility] HOSPICE AND P[place] [address] [facility] [address] [place] [id number] Referral ID Status Reason Start Date Expiration Date V isits Requested Visits Authorized [id number] Closed Evaluate and Treat 08/26/2022 08/26/2023 100 100 Encounter Details Date Type Department Care Team (Late st Contact Info) Description 08/26/2022 [place] [address] Yue Darby MD [facility] HOSPICE AND [facility] [address] 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, sequela Social History Tobacco Use Types Packs/Day Years [...] PM EDT TH Visit (TeleHealth) [place] [address] Yue Darby MD [facility] HOSPICE AND P[place] [address] 04/12/2024 11:30 AM EDT [place] [address] Yue Darby MD [facility] HOSPICE AND P[place]AT[place] [address] 04/28/2024 8:30 AM EDT TH Visit (TeleHealth) [place] [address] Yue Darby MD [facility] HOSPICE AND P[place]AT[place] [address] Scheduled Referrals Name Type Priority Associated Diagnoses Order Schedule Referral to Occupational Therapy Outpatient Referral Routine 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, sequela Ordered: 08/26/2022 documented as of this encounter Visit Diagnoses Diagnosis 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, sequela documented in this encounter Care Teams Boring Machine Operator Double End Relationship Specialty Start Date End Date Donte Padgett MD [address] [place] [address] [address] [place] [address] PCP - General Family Medicine 08/24/15 documented as of this encounter
--- OUTSIDE RECORDS SUMMARY | 2024-03-04 16:55 | XMS_ITS | Encounter Summary ---
Author Organization [facility] Address [facility] [place] [address] Care Team Providers Care Page Makeup System Operator Name Role Phone Donte Padgett MD Primary Care Provider [phone] [phone] Reason for Visit * Reason Onset Date Comments Medication Refill 06/13/2022 Encounter Details Date Type Department Care Team (Late st Contact Info) Description 06/13/2022 Ref[place] [phone] Yue Darby MD [facility] [address] HOSPICE AND [place] [address] Chronic left lower quadrant pain Social History [...] PM EDT TH Visit (TeleHealth) [place] [phone] Yue Darby MD [facility] [address] HOSPICE AND [place] [address] 04/12/2024 11:30 AM EDT [place] [address] Yue Darby MD [facility] HOSPICE [facility] [place] [address] 04/28/2024 8:30 AM EDT TH Visit (TeleHealth) [place] [address] Yue Darby MD [facility] HOSPICE AND [place] [address] documented as of this encounter Visit Diagnoses Diagnosis Chronic left lower quadrant pain Abdominal pain, left lower quadrant documented in this encounter Care Teams Page Makeup System Operator Relationship Specialty Start Date End Date Donte Padgett MD [address] [place] [address] PCP - General Family Medicine 08/24/15 documented as of this encounter
--- OUTSIDE RECORDS SUMMARY | 2024-03-04 16:55 | XMS_ITS | Encounter Summary ---
Author Organization [facility] Address [facility] [place] [address] Care Team Providers Care Sales Merchandise Associate Name Role Phone Donte Padgett MD Primary Care Provider [phone] [phone] Reason for Visit * Reason Onset Date Comments Medication Refill 06/13/2022 Encounter Details Date Type Department Care Team (Late st Contact Info) Description 06/13/2022 [place] [address] Yue Darby MD [facility] HOSPICE [place] [address] Chronic left lower quadrant pain (Primary Dx) Social History Tobacco Use Types Packs/Day Years [...] encounter Miscellaneous Notes * Telephone Encounter - Patricia Busch RN - 06/13/2022 12:33 PM EST rx line request for renwwal of oxycodone Last rx 05/13/22 #120 FUV 07/08/22 documented in this encounter Plan of Treatment Upcoming Encounters Date Type Department Care Team (Late st Contact Info) Description 03/17/2024 2:00 PM EDT TH Visit (TeleHealth) [place] [address] Yue Darby MD [facility] HOSPICE [place] [address] 04/12/2024 11:30 AM EDT [place] [address] Yue Darby MD [facility] HOSPICE [place] [address] 04/28/2024 8:30 AM EDT TH Visit (TeleHealth) [place] [address] Yue Darby MD [facility] [address] HOSPICE [place] [address] documented as of this encounter Visit Diagnoses Diagnosis Chronic left lower quadrant pain- Primary Abdominal pain, left lower quadrant documented in this encounter Care Teams Sales Merchandise Associate Relationship Specialty Start Date End Date Donte Padgett MD [address] [place] [address] PCP - General Family Medicine 08/24/15 documented as of this encounter
--- OUTSIDE RECORDS SUMMARY | 2024-03-04 16:55 | XMS_ITS | Encounter Summary ---
Author Organization [facility] Address [facility] [place] [address] Care Team Providers Care Paint Laboratory Technician Name Role Phone Donte Padgett MD Primary Care Provider [phone] [phone] Reason for Visit * Reason Onset Date Comments Reminder Appointment 02/12/2023 Encounter Details Date Type Department Care Team (Late st Contact Info) Description 02/12/2023 [place] [phone] Yue Darby MD [facility] HOSPICE [place] [address] Reminder Appointment Social History Tobacco Use Types [...] Telephone Encounter - Leia Alvarez CMA - 02/12/2023 10:36 AM EDT Unable to reach this patient by phone to review their medications and allergies prior to their upcoming tele-appointment with the Neurology provider. No message left. documented in this encounter Plan of Treatment Upcoming Encounters Date Type Department Care Team (Late st Contact Info) Description 03/17/2024 2:00 PM EDT TH Visit (TeleHealth) [place] [address] Yue Darby MD [facility] [address] HOSPICE [place] [address] 04/12/2024 11:30 AM EDT [place] [address] Yue Darby MD [facility] [address] HOSPICE [place] [address] 04/28/2024 8:30 AM EDT TH Visit (TeleHealth) [place] [address] Yue Darby MD [facility] [address] HOSPICE [place] [address] documented as of this encounter Visit Diagnoses Not on filedocumented in this encounter Care Teams Paint Laboratory Technician Relationship Specialty Start Date End Date Donte Padgett MD [address] [facility] [place] [address] PCP - General Family Medicine 08/24/15 documented as of this encounter
--- OUTSIDE RECORDS SUMMARY | 2024-03-04 16:55 | XMS_ITS | Encounter Summary ---
Author Organization [facility] Address [facility] [place] [address] Care Team Providers Care Quality Assurance Consultant Name Role Phone Donte Padgett MD Primary Care Provider [phone] [phone] Encounter Details Date Type Department Care Team (Late st Contact Info) Description 08/08/2022 Orders [place] [phone] Yue Darby MD [facility] HOSPICE AND [place]IAT[place] [address] Chronic, continuous use of opioids; Chronic left lower quadrant pain; Functional abdominal pain syndrome Social History Tobacco Use Types Packs/Day Years [...] PM EDT TH Visit (TeleHealth) [place] [address] Yue Darby MD [facility] HOSPICE AND [place]AT[place] [address] 04/12/2024 11:30 AM EDT Office [place] [address] Yue Darby MD [facility] DR HOSPICE AND [place] [address] 04/28/2024 8:30 AM EDT TH Visit (TeleHealth) [place] [address] Yue Darby MD [facility] DR HOSPICE AND [place]AT[place] [address] documented as of this encounter Visit Diagnoses Diagnosis Chronic, continuous use of opioids Opioid type dependence, continuous Chronic left lower quadrant pain Abdominal pain, left lower quadrant Functional abdominal pain syndrome documented in this encounter Care Teams Quality Assurance Consultant Relationship Specialty Start Date End Date Donte Padgett MD [address] [place] [address] PCP - General Family Medicine 08/24/15 documented as of this encounter
--- OUTSIDE RECORDS SUMMARY | 2024-03-04 16:55 | XMS_ITS | Encounter Summary ---
Author Organization [facility] Address [facility] [place] [address] Care Team Providers Care Metal Sprayer Protective Coating Name Role Phone Donte Padgett MD Primary Care Provider [phone] [phone] Encounter Details Date Type Department Care Team (Latest Contact Info) Description 01/30/2023 Travel Social History Tobacco Use Types Packs/Day [...] PM EDT TH Visit (TeleHealth) [place] [address] Yue Darby MD [facility] HOSPICE [place] [address] 04/12/2024 11:30 AM EDT [place] [address] Yue Darby MD [facility] HOSPICE [place] [address] 04/28/2024 8:30 AM EDT TH Visit (TeleHealth) [place] [address] Yue Darby MD [facility] [address] HOSPICE [place] [address] documented as of this encounter Visit Diagnoses Not on filedocumented in this encounter Care Teams Metal Sprayer Protective Coating Relationship Specialty Start Date End Date Donte Padgett MD [address] [place] [address] PCP - General Family Medicine 08/24/15 documented as of this encounter
--- OUTSIDE RECORDS SUMMARY | 2024-03-04 16:55 | XMS_ITS | Encounter Summary ---
Author Organization [facility] Address [facility] [place] [address] Care Team Providers Care Dispatcher Radio Name Role Phone Donte Padgett MD Primary Care Provider [phone] [phone] Encounter Details Date Type Department Care Team (Late st Contact Info) Description 12/16/2022 2:00 PM EDT TH Visit (TeleHealth) [place] [address] Yue Darby MD [facility] [address] HOSPICE [place] [address] Chronic, continuous use of opioids; Chronic left [...] Progress Notes * Yue Darby MD - 12/16/2022 2:00 PM EDT Rehabilitation Medicine Follow-up Note Referring Provider: Dr. Cesar Fuentes Reason for Referral: LLQ pain, spasticity Primary Care Provider: Donte Padgett MD Patient ID: Aly De La Torre is a 32 y.o. right-handed male with history of C6 [...] clinic office visit. Subjective Interval History: Aly is scheduled for colostomy by General Surgery in [facility] this coming Thursday12/19/22. He is anxious about having the ostomy bag, less so about his physical ability to care for himself and empty the bag, more about his appearance with the bag. He is hopeful that this will reduce the time spent on his bowel program andoverall improve his quality of life. He has 6 days left of the Belbuca. Estimates about 20 pills left of hydromorphone. We discussed continuing the Belbuca veronica-operatively and I spoke to his surgeon over the phon to suggest that he will likely require higher doses of opioids for post-operative pain (suggest 2-3 mg IV hydromorphone) as a result. Functional Status as of 12/23/22 Kev for mobility in manual WC, ADLs, iADLs. 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 Drives with hand controls. Past Medical [...] ENDOSCOPY performed by Lance Pandya MD at [facility] ENDOSCOPY PRO COLONOSCOPY, DIAGNOSTIC N/A 10/18/2015 COLONOSCOPY, DIAGNOSTIC performed by Seth Yeh MD at [facility] ENDOSCOPY PRO INJECTION ANES AGENT &/ STEROID ILIOINGUINAL IH NERVES Left 11/27/2021 INJECTION ANESTHETIC, ILIOINGUINAL, ILIOHYPOGASTRIC (WRVU 1.75) performed by Mika East MD [facility] PAIN MGMT MSO PRO UPPER GI ENDOSCOPY, BIOPSY N/A 10/18/2015 EGD WITH BIOPSY performed by Seth Yeh MD at [facility] ENDOSCOPY Medications: Current Outpatient Medications on File Prior to Visit Medication Sig Dispense Refill baclofen (Lioresal) 20 mg tablet Take 1 tablet by mouth 4 times daily. 120 tablet 0 baclofen (Lioresal) 10 mg tablet Take 1 tablet by mouth 2 times daily as needed (increased spasms).Okay to take in addition to scheduled 20 mg dose 90 tablet 3 HYDROmorphone (Dilaudid) 8 mg tablet Take 1-1.5 tablets by mouth every 12 hours as needed for Pain.Take 1 tab for moderate pain (5-7/10). Take 1 1/2 tabs for severe pain (8-10/10). 90 tablet 0 buprenorphine HCL (Belbuca) [address] 1 Film inside cheek 2 times daily. 60 each 0 magnesium hydroxide (Milk of Magnesia) 2,400 mg/10 mL Suspension Take by mouth daily. Indications: emptying of the bowel lidocaine (Xylocaine) 2 % jelly Apply topically as needed. Apply pea-sized amount to rectum prior to bowel routine, up to twice daily. [address] (Cymbalta) [address] capsule Take 1 capsule by mouth daily. 30 tablet 0 naloxegoL (Movantik) 25 mg tablet Take 1 tablet by mouth daily. 30 tablet 3 polyethylene glycoL (Miralax) 17 gram Powder in Packet Take 17 g by mouth daily. naloxone (Narcan) 4 mg/actuation Mercedes, Non-Aerosol 1 each by Nasal route as needed (respiratory depression from opioid overdose). 2 each 3 simethicone (MYLICON) 125 mg Tablet, Chewable Take 125 mg by mouth every 6 hours as needed for Heartburn. naloxone (Narcan) 4 mg/actuation Mercedes, Non-Aerosol 1 each by Nasal route as needed (respiratory depression from opioid overdose). 2 each 3 bisacodyL (Dulcolax) [address] 1 suppository rectally daily. (Patient not taking: Reported on 09/18/2022) 60 suppository 3 omeprazole 20 mg Tablet, Delayed Release (E.C.) [...] + buprenorphine and cannabinoids PDMP reviewed: yes 12/23/2022 MEDD: 80-90 on average Pill Count: 20 (8 mg hydromorphone tabs) I have counseled [...] studies. Outside records unavailable for review. Labs: 2016 Hgb 9.6, MCV 65 Chem [...] thoracic spine 10/28/2021: FINDINGS: Evaluation of the sustainable products marketing manager view shows previous cervical fusion at the [...] bowel, neurogenic bladder and lower extremity spasticity. At this point he's had an extensive work-up for chronic left lower quadrant pain, considering potential GI and musculoskeletal etiologies, as well as genitourinary and gastrointestinal causes. Unfortunately, the etiology remains unclear. Nonetheless, this pain is significantly impacting his qualityof life and function. 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 He accepts that we may not be [...] pressure and pain relief during the day. More recently he's had complications from digital [...] with spinal cord injury/neurogenic bowel to undergo. It would be reasonable to continuehis buprenorphine veronica-operatively and treat with IV opioids on a short-term basis for acute pain related to his surgery. A equivalent dose to his current oral PRN dose would be 2-3 mg IV hydromorphone. Recommendations: #Left lower quadrant pain, worse with eating -Continue Belbuca 750 mcg films BID (refill to be sent 12/23/22) -Continue hydromorphone 8-12 mg BID prn (2-3 mg IV prn veronica-operatively; hope to wean this following his upcoming surgery) -Continue gabapentin 600 mg three times daily -[facility] opioid prescribing guidelines #SCI-related spasticity -Baclofen 20 mg four times daily -Add flex dose baclofen 10 mg twice daily prn for increased spasms (encouraged to try morning first) -Consider IT baclofen pump; might benefit from addition of analgesics to the pump as well #Anxiety disorder (worsened by pain) -Gabapentin as above -Duloxetine DR 30 mg daily (he's been off this for a while but is interested in resuming; prior dose was 30 mg BID) -Psych referral -Mindfulness exercises #Risk of opioid-induced constipation #Neurogenic bowel complicated by veronica-rectal abscess, hemorrhoids -Continue daily or every other day Milk of Mg -Colostomy scheduled 12/19 Follow-up: 1 month via telehealth; consider sending back to seating clinic after ostomy and painclinic appointments CC: PCP Dr. Ricarda Pradhan (General Surgery @[facility]) [address] [address] Yue Darby MD Physical Medicine & Rehabilitation documented in this encounter Plan of Treatment Upcoming Encounters Date Type Department Care Team (Late st Contact Info) Description 03/17/2024 2:00 PM EDT TH Visit (TeleHealth) [place] [address] Yue Darby MD [facility] HOSPICE [place] [address] 04/12/2024 11:30 AM EDT [place] [address] Yue Darby MD [facility] HOSPICE [place] [address] 04/28/2024 8:30 AM EDT TH Visit (TeleHealth) [place] [address] Yue Darby MD [facility] HOSPICE [place] [address] documented as of this encounter Visit Diagnoses Diagnosis Chronic, continuous use of opioids Opioid type dependence, continuous Chronic left lower quadrant pain Abdominal pain, left lower quadrant documented in this encounter Care Teams Dispatcher Radio Relationship Specialty Start Date End Date Donte Padgett MD [address] [place] [address] PCP - General Family Medicine 08/24/15 documented as of this encounter
--- OUTSIDE RECORDS SUMMARY | 2024-03-04 16:55 | XMS_ITS | Encounter Summary ---
Author Organization [facility] Address [facility] [place] [address] Care Team Providers Care Patcher Wood Welder Name Role Phone Donte Padgett MD Primary Care Provider [phone] [phone] Reason for Visit * Reason Onset Date Comments Medication Refill 12/15/2022 Encounter Details Date Type Department Care Team (Late st Contact Info) Description 12/15/2022 Refill [place] [phone] Yue Darby MD [facility] HOSPICE [place] [address] Spasticity Social History Tobacco Use Types Packs/Day [...] Telephone Encounter - Mickie Esparza RN - 12/15/2022 1:36 PM EDT Medication request for : Baclofen 20 mg tablets Information from Last Rx filled: Dose: 20 mg Route: Oral Frequency: 4 TIMES DAILY Dispense Quantity: 120 tablet Refills: 3 Sig: Take 1 tablet by mouth 4 times daily. Start Date: 06/17/22 End Date: -- Written Date: 06/17/22 From last note: 32 y.o. 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 He continues to use low daily OME (<30 mg po morphine equivalents). I have prescribed a buprenorphine patch in hopes that it will control his pain with less potential adverse effects including dependence and constipation in the setting of his neurogenic bowel, however he's not yet had adequate pain relief with the highest available patch dose. In addition, he has been having difficulty keepingthe patch on for a full 7 days (tends to fall off despite various measures to improve adhesive). Heremains attentive to his bowels and avoids constipation with daily/QoD bowel program. We will rotate to morphine IR today and look into obtaining prior auth for buccal buprenorphine as an alternativeto the Butrans patch. He accepts that we may not be able to identify a cause for the pain but would still benefit from a multimodal approach to pain management. Additionally, he does not desire to be on chronic long-term opioids. I've reached out to the psychologist affiliated with GI as he is interested in further individual counseling and will refer back to interventional pain for consideration of additional interventions including an IT pump for analgesia. Recommendations: #SCI-related spasticity -CONTINUE baclofen 20 mg four times daily -Add flex dose baclofen 10 mg twice daily prn for increased spasms (encouraged to try morning first) -Consider IT baclofen pump; might benefit from addition of analgesics to the pump as well #Left lower quadrant pain, worse with eating #?ARFID -Referral to GI motility clinic and psychology for individual counseling -Abdominal/pelvic CT and MRI angiogram unrevealing except for ?splenic artery stenosis; stool burden minimal -STOP oxycodone -START morphine IR 15 mg q12h prn -Butrans (buprenorphine) TD 20 mcg/hr weekly patch (refilled today); will look into obtaining priorauth for Belbuca due to difficulty keeping Butrans patch on and inadequate analgesia with 20 mcg/hrpatch -INCREASE gabapentin to 600 mg three times daily -[place] opioid prescribing guidelines -To consider medical cannabis; patient looking into [place] program #Anxiety disorder (worsened by pain) -Gabapentin as above -Okay to resume duloxetine 30 mg daily if no notable improvement in anxiety with adjusted dose of gabapentin after 1 week -Psych referral -Mindfulness exercises #Risk of opioid-induced constipation #Neurogenic bowel -Continue daily or every other day Miralax and dulcolax suppositories/dig Last appt: 07/11/22 Next appt: 12/16/22 documented in this encounter Plan of Treatment Upcoming Encounters Date Type Department Care Team (Late st Contact Info) Description 03/17/2024 2:00 PM EDT TH Visit (TeleHealth) [place] [address] Yue Darby MD [facility] HOSPICE [place] [address] 04/12/2024 11:30 AM EDT Office [place] [address] Yue Darby MD [facility] HOSPICE [place] [address] 04/28/2024 8:30 AM EDT TH Visit (TeleHealth) [place] [address] Yue Darby MD [facility] HOSPICE [place] [address] documented as of this encounter Visit Diagnoses Diagnosis Spasticity Abnormal involuntary movements documented in this encounter Care Teams Patcher Wood Welder Relationship Specialty Start Date End Date Donte Padgett MD [address] [place] [address] [address] [place] [address] PCP - General Family Medicine 08/24/15 documented as of this encounter
--- OUTSIDE RECORDS SUMMARY | 2024-03-04 16:55 | XMS_ITS | Encounter Summary ---
Author Organization [facility] [place] [address] Care Team Providers Care Turkey Pinner Name Role Phone Donte Padgett MD Primary Care Provider [phone] [phone] Encounter Details Date Type Department Care Team (Latest Contact Info) Description 06/09/2022 5:00 PM EST TH Visit (TeleHealth) [place] [phone] Donna Bowser, PhD [facility] [place] [address] Functional abdominal pain syndrome; Psychological and behavioral factors associated with disorders or diseases classified elsewhere Social History Tobacco Use Types Packs/Day Years [...] as of this encounter Progress Notes * Donna Bowser, PhD - 06/09/2022 5:00 PM EST [facility] Department of Medicine, Section of Gastroenterology & Hepatology Behavioral Health: Cognitive Behavioral Therapy for Pain Group Visit: 2 of 4 Number of participants: 4 Visit length: 55 minutes This visit was conducted via telehealth. Patient is located at home. SUBJECTIVE: Chief Complaint: psychological and behavioral factors associated with functional abdominal pain OBJECTIVE: Group interventions/topics: 1. Discussed responses to pain interview questions - what was new, what patients had thought about previously, and how it was to approach pain as opposed to avoiding. 2. In particular discussed the role of stress and early adversity in both development of vigilance and reactivity, and also in cognitions related to pain. 3. Discussed individual reactions to the pain experiences (e.g., fear, frustration, despair) and how these reactions can intensify the pain experience. 4. Provided psychoeducation on mindfulness of sensation with safety reappraisal and positivity induction. 5. Practiced this new skill during the visit & sent patients an audio recording of the practice. ASSESSMENT Individual reports and experiences: Patient's mental status appear to be WNL; Aly evidenced normal affect and appropriate interactions with other participants in the group. He is engaged with the group material. Aly was not able to answer the pain interview questions (didn't get the email I sent), but listened during the group and had thoughts about and insights into his own pain. He could identify with the overlap of physical and mental health problems described by others, sharing about his 2011 spinal cord injury and the impacts on his mental health. He feels frustrated by his GI symptoms and abdominal pain, particularly after he worked so hard to gain independence following his injury. Pain leads to a lot of different emotions, including a lot of frustration, anxiety, anger. PLAN: Next session in 1 week. Assignment: 1) Practice mindfulness with safety reappraisal and positivity induction on mild to moderate pain. documented in this encounter Plan of Treatment Upcoming Encounters Date Type Department Care Team (Late st Contact Info) Description 03/17/2024 2:00 PM EDT TH Visit (TeleHealth) [place] [address] Yue Darby MD [facility] [place] [address] 04/12/2024 11:30 AM EDT Office [place] [address] Yue Darby MD [facility] H[facility] [place] [address] 04/28/2024 8:30 AM EDT TH Visit (TeleHealth) [place] [address] Yue Darby MD [facility] [place] [address] documented as of this encounter Visit Diagnoses Diagnosis Functional abdominal pain syndrome Psychological and behavioral factors associated with disorders or diseases classified elsewhere documented in this encounter Care Teams Turkey Pinner Relationship Specialty Start Date End Date Donte Padgett MD [address] [place] [address] PCP - General Family Medicine 08/24/15 documented as of this encounter
--- OUTSIDE RECORDS SUMMARY | 2024-03-04 16:55 | XMS_ITS | Encounter Summary ---
Author Organization [facility] Address [facility] [place] [address] Care Team Providers Care Gold Stamper Name Role Phone Donte Padgett MD Primary Care Provider [phone] [phone] Encounter Details Date Type Department Care Team (Late st Contact Info) Description 10/10/2022 Orders [place] [address] Yue Darby MD [facility] HOSPICE AND [place] [address] Other hemorrhoids; Chronic left lower quadrant pain Social History [...] PM EDT TH Visit (TeleHealth) [place] [address] Yue Darby MD [facility] HOSPICE AND [place] [address] 04/12/2024 11:30 AM EDT Office [place] [address] Yue Darby MD [facility] HOSPICE AND [place] [address] 04/28/2024 8:30 AM EDT TH Visit (TeleHealth) [place] [address] Yue Darby MD [facility] H[facility] [place] [address] documented as of this encounter Visit Diagnoses Diagnosis Other hemorrhoids Chronic left lower quadrant pain Abdominal pain, left lower quadrant documented in this encounter Care Teams Gold Stamper Relationship Specialty Start Date End Date Donte Padgett MD [address] [place] [address] PCP - General Family Medicine 08/24/15 documented as of this encounter
--- OUTSIDE RECORDS SUMMARY | 2024-03-04 16:55 | XMS_ITS | Encounter Summary ---
Author Organization [facility] [place] [address] Care Team Providers Care State Trooper Name Role Phone Donte Padgett MD Primary Care Provider [phone] [phone] Encounter Details Date Type Department Care Team (Late st Contact Info) Description 10/09/2022 Telephone [place] [phone] Yue Darby MD [facility] [address] HOSPICE AND [place] [address] Social History Tobacco Use Types Packs/Day Years [...] Telephone Encounter - Yue Darby MD - 10/10/2022 10:13 AM EDT Call returned to patient re: request to refill lidocaine and hydromorphone. Aly has an upcoming appointment with a local colorectal surgeon on Friday 10/13 to discuss interventional options for hemorrhoids and rectal prolapse. He has been getting some relief from topical lidocaine which he uses prior to his bowel program. He's using hydromorphone 8-12 mg twice daily, typically after his bowel routine in the morning and again after dinner, which is when his pain tends to flare. He has been able to work intermittently but not every day due to pain which is worse when he's seated. Continues with Belbuca 600 mcg q12h. [place] PDMP queried 10/10/2022 No aberrant behavior or early refills Daily OME ~ 48 Plan: -Continue Belbuca 600 mcg q12h -Hydromorphone 8-16 mg, increase to three times daily PRN for breakthrough pain (mid-day dose to encourage ability to go to work); plan to continue this temporarily, ideally only until hemorrhoids and prolapse are addressed -Lidocaine 2% jelly to rectum prior to bowel routine -Continue bowel meds as before -Follow-up with me via telehealth or in person after his upcoming appts with OT, Pain clinic Yue Darby MD Physical Medicine [facility] Rehabilitation * Telephone Encounter - Rupinder Jackson RN - 10/09/2022 1:13 PM EDT Will forward to Dr Darby * Telephone Encounter - Rupinder Jackson RN - 10/09/2022 1:13 PM EDT Copied from CRM #[id number]. Topic: Specialty Dept CRMs - Generic Call >> Oct 09, 2022 1:03 PM Manpreet Torres wrote: Specialist: Lou Relationship (if other than patient-full name patient Patient states he is having to use HYDROmorphone (Dilaudid) 8 mg tablet daily 1- 1.5 pills twice daily for pain and would like to discuss upping prescription and patient is using lidocaine (Xylocaine)2 % jelly twice daily he would like to discuss continuing this as well please call to advise documented in this encounter Plan of Treatment Upcoming Encounters Date Type Department Care Team (Late st Contact Info) Description 03/17/2024 2:00 PM EDT TH Visit (TeleHealth) [place] [address] Yue Darby MD [facility] HOSPICE AND [place] [address] 04/12/2024 11:30 AM EDT Office Visit Neurology at [place] [phone] Yue Darby MD [facility] HOSPICE AND [place] [address] 04/28/2024 8:30 AM EDT TH Visit (TeleHealth) Neurology at [place] [phone] Yue Darby MD [facility] HOSPICE AND [place] [address] documented as of this encounter Visit Diagnoses Not on filedocumented in this encounter Care Teams State Trooper Relationship Specialty Start Date End Date Donte Padgett MD [address] [place] [address] PCP - General Family Medicine 08/24/15 documented as of this encounter
--- OUTSIDE RECORDS SUMMARY | 2024-03-04 16:55 | XMS_ITS | Encounter Summary ---
Author Organization [facility] [place] [address] Care Team Providers Care Geosciences Associate Professor Name Role Phone Donte Padgett MD Primary Care Provider [phone] [phone] Encounter Details Date Type Department Care Team (Late Contact Info) Description 09/18/2022 Orders [place] [address] Yue Darby MD [facility] HOSPICE AND [place] [address] Chronic, continuous use of opioids; Abdominal pain, [...] PM EDT TH Visit (TeleHealth) [place] [address] Yue Darby MD [facility] HOSPICE AND [place] [address] 04/12/2024 11:30 AM EDT Office [place] [address] Yue Darby MD [facility] [address] HOSPICE [place] [address] 04/28/2024 8:30 AM EDT TH Visit (TeleHealth) [place] [address] Yue Darby MD [facility] DR HOSPICE AND [place] [address] documented as of this encounter Visit Diagnoses Diagnosis Chronic, continuous use of opioids Opioid type dependence, continuous Abdominal pain, chronic, left lower quadrant Abdominal pain, left lower quadrant documented in this encounter Care Teams Geosciences Associate Professor Relationship Specialty Start Date End Date Donte Padgett MD [address] [place] [address] PCP - General Family Medicine 08/24/15 documented as of this encounter
--- OUTSIDE RECORDS SUMMARY | 2024-03-04 16:55 | XMS_ITS | Encounter Summary ---
Author Organization [facility] Address [facility] [place] [address] Care Team Providers Care Department Store Manager Name Role Phone Donte Padgett MD Primary Care Provider [phone] [phone] Encounter Details Date Type Department Care Team (Late st Contact Info) Description 12/15/2022 Telephone [facility] [place] [address] Niels Spangler Social History Tobacco Use Types Packs/Day Years [...] PM EDT TH Visit (TeleHealth) [place] [address] Yue Darby MD [facility] HOSPICE [place] [address] 04/12/2024 11:30 AM EDT [place] [address] Yue Darby MD [facility] HOSPICE [place] [address] 04/28/2024 8:30 AM EDT TH Visit (TeleHealth) [place] [address] Yue Darby MD [facility] [address] HOSPICE [place] [address] documented as of this encounter Visit Diagnoses Not on filedocumented in this encounter Care Teams Department Store Manager Relationship Specialty Start Date End Date Donte Padgett MD [address] [place] [address] PCP - General Family Medicine 08/24/15 documented as of this encounter
--- OUTSIDE RECORDS SUMMARY | 2024-03-04 16:55 | XMS_ITS | Encounter Summary ---
Author Organization [facility] Address [facility] [place] [address] Care Team Providers Care Mine Development Engineer Name Role Phone Donte Padgett MD Primary Care Provider [phone] [phone] Encounter Details Date Type Department Care Team (Late st Contact Info) Description 07/25/2022 [place] [address] Yue Darby MD [facility] HOSPICE AND [place] [address] Social History Tobacco Use Types Packs/Day Years [...] encounter Miscellaneous Notes * Telephone Encounter - Rupinder Jackson RN - 07/25/2022 3:20 PM EST Per Last office note, buccal buprenorphine as an alternative to the Butrans patch. (trouble stayingon, incomplete relief) PA approved today, pt would discontinue patch Pt just picked up rx for the patches 07/12. Pharmacist willing to dispense Butrans patch if pt will bring in unused patches. Call placed to pt, message left on voicemail with above. Dr Darby also notified * Telephone Encounter - Rupinder Jackson RN - 07/25/2022 3:19 PM EST Copied from CRM #[id number]. Topic: Specialty Dept CRMs - Medication Issues >> Jul 25, 2022 3:06 PM Pricila Brooks wrote: Medication Issues Specialist Wilner Relationship (if other than patient-full name): Roxanna- [facility] Reason for call: Medication Issue (if symptom based used Triage Subtopic) Message/information for the nurse: Roxanna states patient recently picked up buprenorphine (Butrans) 20 mcg/hour Patch Weekly and wants buprenorphine (Belbuca) 300 mcg Film filled also and they need clarification on this. Name of Medication: buprenorphine (Belbuca) 300 mcg Film Issue with the medication: Clarification of orders documented in this encounter Plan of Treatment Upcoming Encounters Date Type Department Care Team (Late st Contact Info) Description 03/17/2024 2:00 PM EDT TH Visit (TeleHealth) [place] [address] Yue Darby MD [facility] DR HOSPICE AND [place] [address] 04/12/2024 11:30 AM EDT [place] [address] Yue Darby MD [facility] HOSPICE AND [place]AT[place] [address] 04/28/2024 8:30 AM EDT TH Visit (TeleHealth) [place] [address] Yue Darby MD [facility] HOSPICE AND [place] [address] documented as of this encounter Visit Diagnoses Not on filedocumented in this encounter Care Teams Mine Development Engineer Relationship Specialty Start Date End Date Donte Padgett MD [address] [facility] [place] [address] PCP - General Family Medicine 08/24/15 documented as of this encounter
--- OUTSIDE RECORDS SUMMARY | 2024-03-04 16:55 | XMS_ITS | Encounter Summary ---
Author Organization [facility] [place] [address] Care Team Providers Care Rope Silica Machine Operator Name Role Phone Donte Padgett MD Primary Care Provider [phone] [phone] Reason for Visit * Reason Onset Date Comments Appointment 11/07/2022 Encounter Details Date Type Department Care Team (Late st Contact Info) Description 11/07/2022 Tele[place] [address] Yue Darby MD [facility] HOSPICE AND [place] [address] Appointment Social History Tobacco Use Types Packs/Day [...] * Telephone Encounter - Heena Long - 11/07/2022 12:06 PM EDT Copied from [facility] #[id number]. Topic: Specialty Dept CRMs - Appointment Needed >> November 06, 2022 3:03 PM Hanna Shannon wrote: Appt Needed Specialist Dr. Darby Relationship (if other than patient-full name): Self Appt. Type Needed: FUV Reason for Visit: FUV for Spasticity documented in this encounter Plan of Treatment Upcoming Encounters Date Type Department Care Team (Late st Contact Info) Description 03/17/2024 2:00 PM EDT TH Visit (TeleHealth) [place] [address] Yue Darby MD [facility] DR HOSPICE AND [place] [address] 04/12/2024 11:30 AM EDT [place] [address] Yue Darby MD [facility] HOSPICE [facility] [place] [address] 04/28/2024 8:30 AM EDT TH Visit (TeleHealth) [place] [address] Yue Darby MD [facility] [address] HOSPICE [place] [address] documented as of this encounter Visit Diagnoses Not on filedocumented in this encounter Care Teams Rope Silica Machine Operator Relationship Specialty Start Date End Date Donte Padgett MD [address] [place] [address] PCP - General Family Medicine 08/24/15 documented as of this encounter
--- OUTSIDE RECORDS SUMMARY | 2024-03-04 16:55 | XMS_ITS | Encounter Summary ---
Author Organization [facility] Address [facility] [place] [address] Care Team Providers Care Artificial Breeding Ranch Supervisor Name Role Phone Donte Padgett MD Primary Care Provider [phone] [phone] Encounter Details Date Type Department Care Team (Late st Contact Info) Description 02/06/2023 Orders Only [place] [address] Yue Darby MD [facility] HOSPICE AND [place] [address] Chronic left lower quadrant pain; Spasticity Social [...] PM EDT TH Visit (TeleHealth) [place] [address] Yue Darby MD [facility] HOSPICE AND [place] [address] 04/12/2024 11:30 AM EDT Office [place] [address] Yue Darby MD [facility] HOSPICE AND [place] [address] 04/28/2024 8:30 AM EDT TH Visit (TeleHealth) [place] [address] Yue Darby MD [facility] HOSPICE AND [place] [address] documented as of this encounter Visit Diagnoses Diagnosis Chronic left lower quadrant pain Abdominal pain, left lower quadrant Spasticity Abnormal involuntary movements documented in this encounter Care Teams Artificial Breeding Ranch Supervisor Relationship Specialty Start Date End Date Donte Padgett MD [address] [place] [address] PCP - General Family Medicine 08/24/15 documented as of this encounter
--- OUTSIDE RECORDS SUMMARY | 2024-03-04 16:55 | XMS_ITS | Encounter Summary ---
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, sequela Wheelchair Yue Darby MD [facility] [place] [address] [facility] [address] [place] [address] Referral ID Status Reason Start Date Expiration Date V isits Requested Visits Authorized [id number] Closed Evaluate and Treat 01/30/2023 01/30/2024 12 12 Encounter Details Date Type Department Care Team (Late st Contact Info) Description 01/30/2023 11:30 AM EDT Office [place] [address] Yue Darby MD [facility] [place] [address] Chronic, continuous use of opioids; Neuropathic pain of both legs; Constipation due to neurogenic bowel; Therapeutic opioid-induced constipation (OIC); Chronic left lower quadrant pain; Edema of both legs; Injury at C6 level of cervical spinal [...] Sign Reading Time Taken Comments Blood Pressure 114/62 01/30/2023 11:24 AM EDT Pulse 61 01/30/2023 11:24 AM EDT Temperature - - Respiratory Rate - - Oxygen Saturation - - Inhaled Oxygen Concentration - - Weight 103 kg (227 lb) 01/30/2023 11:24 AM EDT Height 193 cm (6' 4) 01/30/2023 11:24 AM EDT Body Mass Index 27.63 01/30/2023 11:24 AM EDT documented in this encounter Patient Instructions * Patient Instructions* Yue Darby MD - 01/30/2023 11:30 AM EDT Stop taking Colace (this is just a stool softener but will not move things along). Start taking Miralax one capful twice daily. Can cut down to once daily if twice daily is too much.The goal is one soft, formed bowel movement daily. I sent a prescription for dulcolax tabs to [facility]. This is the same as what you can buy over the counter. Try Miralax one day and dulcolax one day and see which one works better for you. Increase gabapentin to three tabs (1200 mg) in the afternoon. Continue to take two tabs (800 mg) morning and evening. Let me know how this works for the pins/needles sensation. Change how you're taking tizanidine. Stop taking this every day, use only as needed for when your spasms are bad. Decrease Belbuca to ONCE daily x 1 week. I will let you know what the next step is after that. documented in this encounter Progress Notes * Yue Darby MD - 01/30/2023 11:30 AM EDT Rehabilitation Medicine Follow-up Note Referring [...] of unclear etiology. History provided by: patient Subjective Interval History: Is doing relatively well since his colostomy last month. Pain is still there but much less. The ostomy is incidentally located right over the area where he's historically had pain. He notices some increased pain when he transfers but thinks this is more than likely due to the adhesive pulling his skin. Can go 4-5 days without needing the hydromorphone. Was prescribed tizanidine while in the hospital because his spasms worsened following the colostomyprocedure. Is taking this daily but doesn't notice a difference. Overall spasms have improved sincedischarge. Is dealing with constipation, taking 6 tabs Colace a day but ends up taking a Milk of Mg (last usedye) which clears me out. He usually reserves Milk of Mg if he hasn't gone for 2-3 days. Surgeon recommended he start. Miralax. He has this at home but hasn't tried it yet. Also has some OTC dulcolax tabs. Is interested in cutting down on the opioids if possible. Notes some swelling of both legs, left>right, which is new. Also with increased burning/tinglingpain in his feet. Functional Status as of 01/30/23 Kev for mobility in manual WC, ADLs, iADLs. 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 Thinks that WC seat is too high and this affects his posture. Has to hunch over to propel his chair. Past Medical History: Active Ambulatory Problems Diagnosis [...] ENDOSCOPY performed by Lance Pandya MD at [facility] ENDOSCOPY PRO COLONOSCOPY, DIAGNOSTIC N/A 10/18/2015 COLONOSCOPY, DIAGNOSTIC performed by Seth Yeh MD at [facility] ENDOSCOPY PRO INJECTION ANES AGENT &/ STEROID ILIOINGUINAL IH NERVES Left 11/27/2021 INJECTION ANESTHETIC, ILIOINGUINAL, ILIOHYPOGASTRIC (WRVU 1.75) performed by Mika East MD [facility] PAIN MGMT MSO PRO UPPER GI ENDOSCOPY, BIOPSY N/A 10/18/2015 EGD WITH BIOPSY performed by Seth Yeh MD at [facility] ENDOSCOPY Medications: Current Outpatient Medications on File Prior to Visit Medication Sig Dispense Refill tiZANidine (Zanaflex) 4 mg tablet every 6 hours as needed (spasms). 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 spinal disease vardenafiL (Levitra) 20 mg tablet TAKE 1/2 TO 1 TABLET BY MOUTH ONCE DAILY NEEDED FOR SEXUAL ACTIVITY [DISCONTINUED] gabapentin (Neurontin) 400 mg capsule Take 800 mg by mouth 3 times daily. HYDROmorphone (Dilaudid) 8 mg tablet Take 1-1.5 tablets by mouth every 12 hours as needed for Pain.Take 1 tab for moderate pain (5-7/10). Take 1 1/2 tabs for severe pain (8-10/10). 90 tablet 0 baclofen (Lioresal) 20 mg tablet Take 1 tablet by mouth 4 times daily. 120 tablet 0 magnesium hydroxide (Milk of Magnesia) 2,400 mg/10 mL Suspension Take by mouth daily. Indications: emptying of the bowel DULoxetine DR (Cymbalta) [address] capsule Take 1 capsule by mouth daily. 30 tablet 0 polyethylene glycoL (Miralax) 17 gram Powder in Packet Take 17 g by mouth daily. naloxone (Narcan) 4 mg/actuation [place], Non-Aerosol 1 each by Nasal route as needed (respiratory depression from opioid overdose). 2 each 3 simethicone (MYLICON) 125 mg Tablet, Chewable Take 125 mg by mouth every 6 hours as needed for Heartburn. omeprazole 20 mg Tablet, Delayed Release (E.C.) Take 20 mg by mouth daily as needed. Prn heartburn,takes 2-3 x/week [DISCONTINUED] buprenorphine HCL (Belbuca) [address] 1 Film inside cheek 2 times daily. 60each 0 [DISCONTINUED] baclofen (Lioresal) 10 mg tablet Take 1 tablet by mouth 2 times daily as needed (increased spasms). Okay to take in addition to scheduled 20 mg dose (Patient not taking: Reported on 01/30/2023) 90 tablet 3 [DISCONTINUED] lidocaine (Xylocaine) 2 % jelly Apply topically as needed. Apply pea-sized amount torectum prior to bowel routine, up to twice daily. (Patient not taking: Reported on 01/30/2023) 30 mL0 [DISCONTINUED] naloxegoL (Movantik) 25 mg tablet Take 1 tablet by mouth daily. (Patient not taking:Reported on 01/30/2023) 30 tablet 3 naloxone (Narcan) 4 mg/actuation [place], Non-Aerosol 1 each by Nasal route as needed (respiratory depression from opioid overdose). (Patient not taking: Reported on 01/30/2023) 2 each 3 [DISCONTINUED] bisacodyL (Dulcolax) [address] 1 suppository rectally daily. (Patient not taking: Reported on 09/18/2022) 60 suppository 3 No current facility-administered medications on file prior [...] OK for early refill? yes UDS: 01/30/2023 + buprenorphine and cannabinoids PDMP reviewed: yes 01/30/2023 MEDD: 120 mg on average Pill Count: pt reports has several weeks of HM left, using sparingly (not every day) I have counseled Aly De La Torre [...] difficulty swallowing, sore throat CV: +leg swelling Pulm: Denies cough, wheezing, shortness of breath GI: + constipation; Denies nausea, vomiting, abdominal pain, : Denies difficulty urinating, pain with urination MSK: Per HPI Psych: Denies anxiety, depressed mood, hallucinations Neuro: Per HPI Objective BP 114/62 (BP Location (NBP): Left arm, Patient Position: Sitting, BP Cuff Sizes: Adult (25-34 cm)) Pulse 61 Ht 193 cm (6' 4) Wt 103 kg (227 lb) BMI 27.63 kg/m?? Physical Exam: Gen: young man seated comfortably in manual WC, NAD HEENT: normocephalic, mucous membranes moist, sclera anicteric, pupils equal Resp: breathing comfortably on room air, no use of accessory muscles Neuro: awake, alert, face symmetric, speech fluent GI: LLQ ostomy in place with small amt of light brown stool in bag, stoma is pink and healthy appearing Neuro: stable tetraplegia Psych: pleasant, conversant Data Review No new [...] thoracic spine 10/28/2021: FINDINGS: Evaluation of the automatic engraver view shows previous cervical fusion at the [...] to perform due to discomfort and constipation. More recently, he developed a veronica-rectal abscess which increased his pain and bowel program challenges further. He is now s/p colostomy 12/19/22 with partial relief of pain as well as significant improvement in his QoL related to management of his bowels. 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 -DECREASE Belbuca to 750 mcg once daily x 2 weeks with plan to then decrease to 600 mcg daily x 2 weeks, then 450 mcg daily x 2 weeks, then 300 mcg daily x 2 weeks, then 150 mcg daily x 2 weeks then STOP -Continue hydromorphone 8 mg BID prn (using sparingly) -INCREASE gabapentin to [phone] (increasing mid-day dose to three tabs) -[place] opioid prescribing guidelines #SCI-related spasticity -Baclofen 20 mg four times daily -Flex dose baclofen 10 mg twice daily prn for increased spasms (encouraged to try morning first) -STOP scheduled tizanidine, may take prn for increased spasms unrelieved by above #Opioid-induced constipation #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 Lumbarsupport) Yue Darby MD Physical Medicine & Rehabilitation documented in this encounter Plan of Treatment Upcoming Encounters Date Type Department Care Team (Late st Contact Info) Description 03/17/2024 2:00 PM EDT TH Visit (TeleHealth) [place] [address] Yue Darby MD [facility] [address] HOSPICE [place] [address] 04/12/2024 11:30 AM EDT Office [place] [address] Yue Darby MD [facility] [address] HOSPICE [place] [address] 04/28/2024 8:30 AM EDT TH Visit (TeleHealth) [place] [address] Yue Darby MD [facility] [address] HOSPICE [place] [address] Scheduled Referrals Name Type Priority Associated Diagnoses Order Schedule Referral to Occupational Therapy Outpatient Referral Routine 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 Flag ??Unit ?? RefValue --- Carboxy-THC Confirmation, U ??Delta-8 Carboxy-Tetrahydroc annabinol by ?? Not Detected ? ng/mL ??Cutoff: 5 ?LC-MS/MS ??Delta-9 Carboxy-Tetrahydroc annabinol by ?? 29 ? ng/mL ??Cutoff: 5 ?LC-MS/MS ??Carboxy-THC Interpretation ?Positive. ? --ADDITIONAL INFORMATION-------- ?This report is intended for use in clinical monitoring and ?management of patients. ??It is not intended for use in ?employment-relate d testing. ?This test was developed and its performance characteristics ?determined by [facility] in a manner consistent with CLIA ?requirements. This test has not been cleared or approved by ?the U.S. Food and Drug Administration. ?Test Performed by: ?[facility] ?[address] [place] [address] ?Counter Intelligence Technician: Jarad Casas M.D. Ph.D.; CLIA# [id number] [facility] Urine 01/30/2023 12:4 0 PM EDT 02/02/2023 11:02 AM EDT Narrative Resulting Agency Comment Spec In Lab Yue Darby MD LAB SEND OUT ORDERAB LES Performing Organization Address [facility]/State/ZIP Co de Phone Number [facility] [place] [address] * (ABNORMAL) Opioids Confirmation Panel, Urine (01/30/2023 12:40 PM EDT) Targeted Opioid Panel, Urine (MAY) Test ?Result ? Flag ??Unit ?? RefValue ------- Targeted Opioid Screen, U ??List prescribed opioids ? See medication list ? ---ADDITIONAL INFORMATION------- ?Accuracy and completeness of declared medications on ?reports solely dependent on information submitted by ?client. ??Codeine ? Not Detected ? ng/mL ??Cutoff: 25 ?Tylenol 3 ??Ydckpam-0-cwaa-g lucuronide ?Not Detected ? ng/mL ??Cutoff: 100 ?Metabolite of codeine ??Morphine ?Not Detected ? ng/mL ??Cutoff: 25 ?Avinza, Inessa, MS Contin; Also a minor metabolite (10%) of ?codeine and can be seen in low concentrations (<2,000 ?ng/mL) with poppy seed ingestion. ??Gztfwweq-7-zhsc- glucuronide ? Not Detected ? ng/mL ??Cutoff: 100 ?Metabolite of morphine ??6-monoacetylmorp chhaya ?Not Detected ? ng/mL ??Cutoff: 25 ?Metabolite of heroin ??Hydrocodone ? Not Detected ? ng/mL ??Cutoff: 25 ?Lortab, [place], Vicodin; Also a very minor metabolite of ?codeine and impurity (<1%) of oxycodone. ??Norhydrocodone ?Not Detected ? ng/mL ??Cutoff: 25 ?Metabolite of hydrocodone ??Dihydrocodeine ?Not Detected ? ng/mL ??Cutoff: 25 ?Metabolite of hydrocodone ??Hydromorphone ? Not Detected ? ng/mL ??Cutoff: 25 ?Dilaudid, Exalgo; Also a metabolite of hydrocodone and a ?minor (<5%) metabolite of morphine. ??Hydromorphone-3- beta-glucuronide ?Present ? @ ?ng/mL ??Cutoff: 100 ?Metabolite of hydromorphone ??Oxycodone ? Not Detected ? ng/mL ??Cutoff: 25 ?Endocet, Percocet, Oxycontin ??Noroxycodone ?Not Detected ? ng/mL ??Cutoff: 25 ?Metabolite of oxycodone ??Oxymorphone ? Not Detected ? ng/mL ??Cutoff: 25 ?Numorphan, Opana; Also a metabolite of oxycodone. ??Fatnrxciqik-3-ix ta-glucuronide ?Not Detected ? ng/mL ??Cutoff: 100 ?Metabolite of oxymorphone and/or naloxone (nornaloxone) ??Noroxymorphone ?Not Detected ? ng/mL ??Cutoff: 25 ?Metabolite of oxymorphone and/or naloxone (nornaloxone) ??Fentanyl ?Not Detected ? ng/mL ??Cutoff: 2 ?Actiq, Duragesic, Fentora ??Norfentanyl ? Not Detected ? ng/mL ??Cutoff: 2 ?Metabolite of fentanyl ??Meperidine ?Not Detected ? ng/mL ??Cutoff: 25 ?Demerol ??Normeperidine ? Not Detected ? ng/mL ??Cutoff: 25 ?Metabolite of meperidine ??Naloxone ?Not Detected ? ng/mL ??Cutoff: 25 ?Narcan ??Gygjtloi-0-zqwf- glucuronide ? Not Detected ? ng/mL ??Cutoff: [...] SEE COMMENTS ?Test detected the presence of ?hydromorphone-3- beta-glucuronide the metabolite of ?hydromorphone. Suspect use of hydromorphone within the past ?three days. ? ---ADDITIONAL INFORMATION------- ?This test was developed and its performance characteristics ?determined by [facility] in a manner consistent with CLIA ?requirements. This test has not been cleared or approved by ?the U.S. Food and Drug Administration. ?Test Performed by: ?[facility] ?[address] [place] [address] ?Counter Intelligence Technician: Jarad Casas M.D. Ph.D.; CLIA# [id number]) [facility] Urine 01/30/2023 12:4 0 PM EDT 02/02/2023 11:02 AM EDT Yue Darby MD LAB SEND OUT ORDERAB LES Performing Organization Address City/State/[facility] Co de Phone Number [facility] [place] [address] * (ABNORMAL) Rapid Drug Screen w/ Confirmation, Urine (01/30/2023 12:40 PM EDT) Barbiturates Screen, Urine None Detected None Detected [facility] Comment: The barbiturate screen detects barbiturates [...] Benzodiazepines Screen, Urine None Detected None Detected [facility] Comment: The benzodiazepines screen detects benzodiazepines [...] Cocaine Screen, Urine None Detected None Detected [facility] Comment: The cocaine metabolites screen detects benzoylecgonine (Cocaine Metabolite) at concentrations >150 ng/mL. A ? Presumptive Positive? result indicates that the screening result was positive but has not yet been confirmed by a highly-specific method. As with any screen, occasional false positive results from cross-reacting substances may occur. Not for Medico-Legal Purposes. Methadone Metabolites Screen, Urine None Detected None Detected [facility] Comment: The methadone metabolite screen detects EDDP (major methadone metabolite) at concentrations >100 ng/mL. A ? Presumptive Positive? result indicates that the screening result was positive but has not yet been confirmed by a highly-specific method. As with any screen, occasional false positive results from cross-reacting substances may occur. Not for Medico-Legal Purposes. Opiate Screen, Urine None Detected None Detected [facility] Comment: The opiates screen detects opiates [...] Cannabinoid Screen, Urine Presumptive Pos(A) None Detected [facility] Comment: The marijuana metabolites screen detects the THC metabolite (34-iou-1-carboxy-delta 9-THC) at concentrations >20 ng/mL. A ? Presumptive Positive? result indicates that the screening result was positive but has not yet been confirmed by a highly-specific method. As with any screen, occasional false positive results from cross-reacting substances may occur. Not for Medico-Legal Purposes. Oxycodone Screen, Urine None Detected None Detected [facility] Comment: The oxycodone screen detects oxycodone and oxymorphone at concentrations >100 ng/mL. A ? Presumptive Positive? result indicates that the screening result was positive but has not yet been confirmed by a highly-specific method. As with any screen, occasional false positive results from cross-reacting substances may occur. Not for Medico-Legal Purposes. Buprenorphine Screen, Urine Presumptive Pos(A) None Detected [facility] Comment: The buprenorphine screen detects [...] characteristics of this test were determined by [facility] in accordance with CLIA requirements. This laboratory is qualified under CLIA to perform high-complexity testing. Fentanyl Screen, Urine None Detected None Detected [facility] Comment: The fentanyl screen detects fentanyl [...] characteristics of this test were determined by [facility] in accordance with CLIA requirements. This laboratory is qualified under CLIA to perform high-complexity testing. Tricyclics Screen, Urine None Detected None Detected [facility] Comment: The tricyclics screen detects tricyclic [...] characteristics of this test were determined by [facility] in accordance with CLIA requirements. This laboratory is qualified under CLIA to perform high-complexity testing. Ethanol Screen, Urine None Detected None Detected [facility] Comment:This urine ethanol a ssay detects ethanol at concentrations >/= 100 mg/L. Amphetamines Screen, Urine None Detected None Detected [facility] Comment: The amphetamine screen detects d-amphetamine and d-methamphetamine at concentrations >300 ng/mL. A ? Presumptive Positive? result indicates that the screening result was positive but has not yet been confirmed by a highly-specific method. As with any screen, occasional false positive results from cross-reacting substances may occur. Not for Medico-Legal Purposes. Creatinine Specimen Validity Test, Urine 29 >=20 mg/dL [facility] Chromate Specimen Validity Test, Urine <2.0 <=49.9 mg/L [facility] Nitrite Specimen Validity Test, Urine <50 <=499 mg/L [facility] Oxidant Specimen Validity Test, Urine 29 <=199 mg/L [facility] pH Specimen Validity Test, Urine 7.2 3.0 - 10.9 [facility] Adulterants Screen, Urine None Detected None Detected [facility] Comment:No adulteration of t his urine sample was detected. Urine 01/30/2023 12:4 0 PM EDT 01/30/2023 12:59 PM EDT Narrative Resulting Agency Comment Spec In Lab Yue Darby MD CHEMISTRY ORDERABLES Performing Organization Address [facility] Co de Phone Number [facility] [place] [address] * Rapid Drug Screen, Urine (GUILLE Request) (01/30/2023 12:40 PM EDT) GUILLE Conf Requested Yes [facility] GUILLE Requested See Comment [facility] Comment:Refer to Rapid Drug Screen w/ Confirmation, Urine for results. Urine 01/30/2023 12:4 0 PM EDT 01/30/2023 12:59 PM EDT Narrative Resulting Agency Comment Spec In Lab Yue Darby MD URINE ORDERABLES Performing Organization Address [facility] Co de Phone Number [facility] [place] [address] documented in this encounter Visit Diagnoses Diagnosis Chronic, continuous use of opioids Opioid type dependence, continuous Neuropathic pain of both legs Mononeuritis of lower limb, unspecified Constipation due to neurogenic bowel Therapeutic opioid-induced constipation (OIC) Chronic left lower quadrant pain Abdominal pain, left lower quadrant Edema of both legs Edema 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
--- OUTSIDE RECORDS SUMMARY | 2024-03-04 16:55 | XMS_ITS | Encounter Summary ---
Author Organization [facility] [place] [address] Care Team Providers Care Marketing Underwriter Name Role Phone Donte Padgett MD Primary Care Provider [phone] [phone] Reason for Visit * Diagnostic Test (Routine) - Closed Specialty Diagnoses / Procedures Referred By Contac t Referred To Contact Diagnoses Ilioinguinal neuralgia of left side Arthralgia of lower leg, unspecified laterality Chronic left hip pain Irritable bowel syndrome, unspecified type Visceral hypersensitivity syndrome Functional abdominal pain syndrome Neurogenic bowel Neurogenic bladder Paraplegia 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, subsequent encounter Fatigue, unspecified type Anxiety Esophagitis Reactive airway disease without complication, unspecified asthma severity, unspecified whether persistent Abdominal pain, chronic, left lower quadrant Arthralgia of knee, unspecified laterality Depression, unspecified depression type Migraine without status migrainosus, not intractable, unspecified migraine type Procedures Duplex Study Visceral Arteries, Comp Milady Yao, BAKARI [facility] [place] [address] [facility] V[facility] Lab [address] [place] [address] Referral ID Status Reason Start Date Expiration Date V isits Requested Visits Authorized [id number] Closed Specialty Service Requested 04/21/2022 04/21/2023 1 1 Encounter Details Date Type Department Care Team (Latest Contact Info) Description 07/31/2022 10:00 AM EST Tech Visit [place] [address] Barry, Chana C, [place] Ilioinguinal neuralgia of left side; Arthralgia of lower leg, unspecified laterality; Chronic left hip pain; Irritable bowel syndrome, unspecified type; Visceral hypersensitivity syndrome; Functional abdominal pain syndrome; Neurogenic bowel; Neurogenic bladder; Paraplegia; 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, subsequent encounter; Fatigue, unspecified type; Anxiety; Esophagitis; Reactive airway disease without complication, unspecified asthma severity, unspecified whether persistent; Abdominal pain, chronic, left lower quadrant; Arthralgia of knee, unspecified laterality; Depression, unspecified depression type; Migraine without status migrainosus, not intractable, unspecified migraine type Social History Tobacco Use Types Packs/Day [...] PM EDT TH Visit (TeleHealth) [place] [address] Yue Darby MD [facility] HOSPICE AND [place] [address] 04/12/2024 11:30 AM EDT [place] [address] Yue Darby MD [facility] HOSPICE AND [place] [address] 04/28/2024 8:30 AM EDT TH Visit (TeleHealth) [place] [address] Yue Darby MD [facility] HOSPICE AND [place] [address] documented as of this encounter Procedures Procedure Name Priority Date/Time Associated Diagnosis Comments MESENTERIC COMPLETE Routine 07/31/2022 9:51 AM EST Ilioinguinal neuralgia of left side Arthralgia of lower leg, unspecified laterality Chronic left hip pain Irritable bowel syndrome, unspecified type Visceral hypersensitivity syndrome Functional abdominal pain syndrome Neurogenic bowel Neurogenic bladder Paraplegia 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, subsequent encounter Fatigue, unspecified type Anxiety Esophagitis Reactive airway disease without complication, unspecified asthma severity, unspecified whether persistent Abdominal pain, chronic, left lower quadrant Arthralgia of knee, unspecified laterality Depression, unspecified depression type Migraine without status migrainosus, not intractable, unspecified migraine type documented in this encounter Results * Duplex Study Visceral Arteries, Comp (07/31/2022 9:51 AM EST) VB Text Report Department: Vascular Surgery Lab Patient: [id number] (DARIO DE LA TORRE) CPT: 09367 Referring Physician: MILADY YAO ?? Phone: Indications: 32 year old male with abdominal pain, ? MALS, mesenteric stenosis Findings: Unilateral ? Waveform ? PSV cm/s ??EDV cm/s ?? Dionne Visceral Aorta ? 97 ?13 ?? Celiac Artery, Proximal ??Livingston-Biphasic ? 306 ? 112 ?? Celiac Artery, Mid ? Livingston-Biphasic ? 187 ? Celiac Artery, Distal ?Livingston-Biphasic ? 253 ?44 ?? Sup Mes Artery Proximal ??Triphasic ? 163 ?10 ?? Sup Mes Artery Middle ?Triphasic ? 130 ? 0 ?? Sup Mes Artery Distal ?Triphasic ? 117 ?11 ?? Hepatic Artery ? Livingston-Biphasic ? 140 ?29 ?? Inf Mes Artery ? Triphasic ? 181 ? 0 ?? Interpretation: Patent celiac artery with elevated velocities through respiration consistent with a 50% or greater stenosis. There was better visualization of the [...] with no evidence of significant stenosis. Comparison: ??No previous study in our vascular lab database for comparison. Electronically Signed by: CHRISTI ESTRADA on 2022-08-04 04:28:02 PM VASCUBASE VB Text Report End of Report VASCUBASE 07/31/2022 9:51 AM EST Milady Yao BAKARI [facility]ASC[facility] ORDERABLES Performing Organization Address City/State/[facility] Co de Phone Number VASCUBASE documented in this encounter Visit Diagnoses Diagnosis Ilioinguinal neuralgia of left side Arthralgia of lower leg, unspecified laterality Chronic left hip pain Pain in joint, pelvic region and thigh Irritable bowel syndrome, unspecified type Visceral hypersensitivity syndrome Other functional disorders of intestine Functional abdominal pain syndrome Neurogenic bowel Neurogenic bladder Neurogenic bladder, NOS Paraplegia 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, subsequent encounter Fatigue, unspecified type Anxiety Anxiety state, unspecified Esophagitis Esophagitis, unspecified Reactive airway disease without complication, unspecified asthma severity, unspecified whether persistent Abdominal pain, chronic, left lower quadrant Abdominal pain, left lower quadrant Arthralgia of knee, unspecified laterality Depression, unspecified depression type Migraine without status migrainosus, not intractable, unspecified migraine type documented in this encounter Care Teams Marketing Underwriter Relationship Specialty Start Date End Date Donte Padgett MD [address] [facility] [address] [place] [address] PCP - General Family Medicine 08/24/15 documented as of this encounter
--- OUTSIDE RECORDS SUMMARY | 2024-03-04 16:55 | XMS_ITS | Encounter Summary ---
Author Organization [facility] Address [facility] [place] [address] Care Team Providers Care Station Installer Name Role Phone Donte Padgett MD Primary Care Provider [phone] Reason for Referral * Consultation (Routine) - Closed Specialty Diagnoses / Procedures Referred By Contac t Referred To Contact [facility] Sp[facility] Center Diagnoses Chronic left lower quadrant pain Chronic, continuous use of opioids Pain - Chronic LLQ pain/ ?left T12 nerve root impingement/ ?thoracic interlaminar vs transforaminal injections/ MRI 10/28/21 in [facility] (former [facility] patient) Yue Darby MD [facility] HOSPICE AND [place] [address] Carrillo Frost MD [facility] [place] [address] Referral ID Status Reason Start Date Expiration Date V isits Requested Visits Authorized [id number] Closed Consult, Test & Treat 08/05/2022 08/05/2023 1 1 Encounter Details Date Type Department Care Team (Late st Contact Info) Description 08/05/2022 Orders [place] [address] Yue Darby MD [facility] HOSPICE AND [place] [address] Chronic left lower quadrant pain; Chronic, continuous use of opioids Social History [...] PM EDT TH Visit (TeleHealth) [place] [address] Yue Darby MD [facility] [address] HOSPICE AND [place] [address] 04/12/2024 11:30 AM EDT Office [place] [phone] Yue Darby MD [facility] [address] HOSPICE AND [place] [address] 04/28/2024 8:30 AM EDT TH Visit (TeleHealth) [place] [address] Yue Darby MD [facility] HOSPICE AND [place] [address] Scheduled Referrals Name Type Priority Associated Diagnoses Orde r Schedule Referral to Pain and Spine Center (Internal only) Outpatient Referral Routine Chronic left lower quadrant pain Chronic, continuous use of opioids Ordered: 08/05/2022 documented as of this encounter Visit Diagnoses Diagnosis Chronic left lower quadrant pain Abdominal pain, left lower quadrant Chronic, continuous use of opioids Opioid type dependence, continuous documented in this encounter Care Teams Station Installer Relationship Specialty Start Date End Date Donte Padgett MD [address] [place] [address] PCP - General Family Medicine 08/24/15 documented as of this encounter
--- OUTSIDE RECORDS SUMMARY | 2024-03-04 16:55 | XMS_ITS | Encounter Summary ---
Author Organization [facility] Address [facility] [place] [address] Care Team Providers Care Health Insurance Sales Agent Name Role Phone Donte Padgett MD Primary Care Provider [phone] Reason for Referral * High Dollar Medication (Routine) - Closed Specialty Diagnoses / Procedures Referred By Contac t Referred To Contact Neurology Diagnoses Spasticity Procedures Abobotulinumtooxin A (Dysport) Authorization Request (IN CLINIC) TC ABOBOTULINUMTOXINA, 5 UNITS, INJ (DYSPORT) PRO CHEMODENERVATION ONE EXTREMITY 1-4 MUSCLE(S) Yue Darby MD [facility] HOSPICE [place] [address] Yue Darby MD [facility] HOSPICE [place] [address] Referral ID Status Reason Start Date Expiration Date V isits Requested Visits Authorized [id number] Closed Consult, Test & Treat 02/27/2023 02/27/2024 99 298 * Occupational Therapy (Routine) - Closed Specialty Diagnoses / Procedures Referred By Contac t Referred To Contact Occupational Therapy Diagnoses 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, sequela Wheelchair Yue Darby MD [facility] HOSPICE [place] [address] [facility] [address] [place] [address] Referral ID Status Reason Start Date Expiration Date V isits Requested Visits Authorized [id number] Closed Evaluate and Treat 02/27/2023 02/27/2024 100 100 Encounter Details Date Type Department Care Team (Late st Contact Info) Description 02/27/2023 9:00 AM EDT TH Visit (TeleHealth) [place] [address] Yue Darby MD [facility] [address] HOSPICE [place] [address] 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, sequela; Spasticity Social History Tobacco Use Types Packs/Day [...] * Patient Instructions* Yue Darby MD - 02/27/2023 9:00 AM EDT #Chronic LLQ pain, improved #Neuropathic pain in legs related to SCI -Continue to wean Belbuca, currently taking 750 mcg every other day. Okay to stop once you run out. -Continue hydromorphone 8-12 mg daily as needed -Continue gabapentin [phone] mg (higher dose mid-day) #SCI-related spasticity -Continue baclofen 20 mg four times daily -Increase tizanidine to 6 mg daily (morning); okay to take additional dose of 4 mg in the afternoonif needed -Plan for Dysport (botulinum toxin injections) to both legs (our alumnae secretary will call you to schedule an appointment with me) #Opioid-induced constipation #Neurogenic bowel complicated by veronica-rectal abscess, hemorrhoids s/p colostomy -Continue dulcolax 1 tab 1-2 times daily as needed to keep stools soft -Milk of Mg as needed Follow-up: 4-6 weeks for Dysport injections Referral to seating clinic to consider adjustments to current chair to improve posture (? Lumbarsupport). Referral for consideration of an intrathecal baclofen pump. documented in this encounter Progress Notes * Yue Darby MD - 02/27/2023 9:00 AM EDT Rehabilitation Medicine Follow-up Note Referring [...] a clinic office visit. Subjective Interval History: Since we last saw each other he has cut down Belbuca 750 mcg film to every other day and is tolerating the wean well. He is taking hydromorphone 8 mg tabs, 1-1.5 tabs daily as needed but not every day. He's needed it three times so far this week. He's had a UTI this week which hasbeen causing some discomfort. His abdominal pain is not as severe as it was before the ostomy surgery. Has felt that his extensor spasms have increased a lot since the surgery. They are significantly worse in the mornings, some days making it impossible to drive because legs kick uncontrollably. He continues to take baclofen 20 mg QID and tizanidine 4 mg every morning, sometimes also in the afternoon. Afternoon doses of the tizanidine tend to make him groggy but he doesn't notice this as much in the morning. Spasms have been pretty bad for about three weeks, before he was diagnosed with the UTI.He checks his skin regularly and does not have any wounds or ingrown toenails. He has been cathing large volumes in the middle of the night, up to 800-900 ml. This wakes him up. Believes that it is due to his legs being more swollen during the day and body mobilizing fluid at night. He recalls that [facility] did a spinal injection a few years ago when he was getting his hemorrhoids stitched. This injection completely relieved his spasms temporarily. He does not know what medication it was (?baclofen). Dr. Pradhan was the surgeon. His stool has been a lot looser on lower dose of the Belbuca. Taking one dulcolax tab in the morning and sometimes also before bed. This is working well. Functional Status as of 02/26/23 Kev for mobility in manual WC, ADLs, iADLs. 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 Thinks that WC seat [...] ENDOSCOPY performed by Lance Pandya MD at [facility] ENDOSCOPY PRO COLONOSCOPY, DIAGNOSTIC N/A 10/18/2015 COLONOSCOPY, DIAGNOSTIC performed by Seth Yeh MD at [facility] ENDOSCOPY PRO INJECTION ANES AGENT &/ STEROID ILIOINGUINAL IH NERVES Left 11/27/2021 INJECTION ANESTHETIC, ILIOINGUINAL, ILIOHYPOGASTRIC (WRVU 1.75) performed by Mika East MD [facility] PAIN MGMT MSO PRO UPPER GI ENDOSCOPY, BIOPSY N/A 10/18/2015 EGD WITH BIOPSY performed by Seth Yeh MD at [facility] ENDOSCOPY Medications: Current Outpatient Medications [...] mouth 4 times daily. 120 tablet 3 tiZANidine (Zanaflex) 4 mg tablet every 6 hours as needed (spasms). 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 spinal disease vardenafiL (Levitra) 20 mg tablet TAKE 1/2 TO 1 TABLET BY MOUTH ONCE DAILY NEEDED FOR SEXUAL ACTIVITY gabapentin (Neurontin) 400 mg capsule Take 2 capsules by mouth 3 times daily. Take 2 capsules in the morning, 3 capsules in the afternoon, 2 capsules in the evening. 210 capsule 0 buprenorphine HCL (Belbuca) [address] 1 Film inside cheek daily. 0 bisacodyl EC (Dulcolax) 5 mg Tablet, [...] by mouth daily. naloxone (Narcan) 4 mg/actuation Victor, Non-Aerosol 1 each by Nasal route as needed (respiratory depression from opioid overdose). 2 each 3 simethicone (MYLICON) 125 mg Tablet, Chewable Take 125 mg by mouth every 6 hours as needed for Heartburn. naloxone (Narcan) 4 mg/actuation Victor, Non-Aerosol 1 each by Nasal route as needed (respiratory depression from opioid overdose). (Patient not taking: Reported on 01/30/2023) 2 each 3 omeprazole 20 mg Tablet, Delayed Release [...] UDS: 01/30/2023 as expected PDMP reviewed: yes 02/27/2023 last filled 02/12 #90 tabs MEDD: 120 mg on average Pill Count: pt reports has several weeks of HM left, using sparingly (not every day) I have counseled Aly De La Torre about the safe use of opioids including dosing, side effects, safestorage and disposal. He knows to contact the clinic if he has questions related to pain medicationuse. Aly De LaT orre has been advised that the concurrent use of benzodiazepines and opioids can increase the risk of oversedation and possibly respiratory depression. Allergies: No Known Allergies ROS: Constitutional: Denies fever/chills HEENT: Denies blurred vision, double vision, hearing loss, difficulty swallowing, sore throat CV: +leg swelling Pulm: Denies cough, wheezing, shortness of breath GI: + constipation. improving; Denies nausea, vomiting, abdominal pain, : Denies [...] Neuro: awake, alert, face symmetric, speech fluent Remainder of exam limited due to this [...] thoracic spine 10/28/2021: FINDINGS: Evaluation of the coffee maker servicer view shows previous cervical fusion at the [...] QoL related to management of his bowels. Unfortunately, he has worsening spasticity since this procedure and generally is on maximal doses of systemic anti- spasmodics. I believe he would be a great candidate for an intrathecal baclofen pump as his spasticity is limited to the lower extremities but involves multiple muscle groups. He's open to a trial of Dysport while awaiting evaluation for ITB. We also discussed increasing his tizanidine dose temporarily as well. 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 Okay to stop once he runs out. -Continue hydromorphone 8-12 mg daily prn -Continue gabapentin [phone] (increasing mid-day dose to three tabs) -[facility] opioid prescribing guidelines #SCI-related spasticity -Baclofen 20 mg four times daily -Increase tizanidine to 6 mg daily (morning); okay to take additional dose of 4 mg in the afternoonif needed -Plan for chemodenervation with botulinum toxinA to bilateral lower extremities (total anticipated dose= 1500 units); muscles to target will include knee extensors, plantarflexors #Opioid-induced constipation #Neurogenic bowel complicated by veronica-rectal abscess, hemorrhoids s/p colostomy -Dulcolax 1-2 tabs daily -Milk of Mg PRN Follow-up: 4-6 weeks in person for Dysport Referral to seating clinic to consider adjustments to current chair to improve posture (? Lumbarsupport) Yue Darby MD [facility] Medicine [facility] Rehabilitation This was a 40 minute visit spent on counseling the patient, documentation and coordination of care. documented in this encounter Plan of Treatment Upcoming Encounters Date Type Department Care Team (Late st Contact Info) Description 03/17/2024 2:00 PM EDT TH Visit (TeleHealth) [place] [address] Yue Darby MD [facility] [address] HOSPICE [place] [address] 04/12/2024 11:30 AM EDT Office [place] [address] Yue Darby MD [facility] HOSPICE [place] [address] 04/28/2024 8:30 AM EDT TH Visit (TeleHealth) [place] [address] Yue Darby MD [facility] HOSPICE [place] [address] Scheduled Referrals Name Type Priority Associated Diagnoses Order Schedule Referral to Occupational Therapy Outpatient Referral Routine 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, sequela Ordered: 02/27/2023 documented as of this encounter Visit Diagnoses Diagnosis 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, sequela Spasticity Abnormal involuntary movements documented in this encounter Care Teams Health Insurance Sales Agent Relationship Specialty Start Date End Date Donte Padgett MD [address] [place] [address] PCP - General Family Medicine 08/24/15 documented as of this encounter
--- OUTSIDE RECORDS SUMMARY | 2024-03-04 16:55 | XMS_ITS | Encounter Summary ---
Author Organization [facility] Address [facility] [place] [address] Care Team Providers Care Speech Communication Professor Name Role Phone Donte Padgett MD Primary Care Provider [phone] Encounter Details Date Type Department Care Team (Latest Contact Info) Description 07/11/2022 Travel Social History Tobacco Use Types Packs/Day [...] PM EDT TH Visit (TeleHealth) [place] [address] Yue Darby MD [facility] HOSPICE AND [place] [address] 04/12/2024 11:30 AM EDT Office [place] [address] Yue Darby MD [facility] HOSPICE [place] [address] 04/28/2024 8:30 AM EDT TH Visit (TeleHealth) [place] [address] Yue Darby MD [facility] DR HOSPICE [place] [address] documented as of this encounter Visit Diagnoses Not on filedocumented in this encounter Care Teams Speech Communication Professor Relationship Specialty Start Date End Date Donte Padgett MD [address] [place] [address] PCP - General Family Medicine 08/24/15 documented as of this encounter
--- OUTSIDE RECORDS SUMMARY | 2024-03-04 16:55 | XMS_ITS | Encounter Summary ---
Author Organization [facility] Address [facility] [place] [address] Care Team Providers Care Sheet Fed Printer Name Role Phone Donte Padgett MD Primary Care Provider [phone] Encounter Details Date Type Department Care Team (Late st Contact Info) Description 08/13/2022 Orders [place] [address] Yue Darby MD [facility] HOSPICE AND [place] [address] Ilioinguinal neuralgia of left side; Arthralgia of lower leg, unspecified laterality; Chronic left hip pain; Irritable bowel syndrome, unspecified type; Visceral hypersensitivity syndrome; Functional abdominal pain syndrome Social History Tobacco [...] PM EDT TH Visit (TeleHealth) [place] [address] Yue Darby MD [facility] HOSPICE AND [place] [address] 04/12/2024 11:30 AM EDT Office [place] [address] Yue Darby MD [facility] DR HOSPICE [place] [address] 04/28/2024 8:30 AM EDT TH Visit (TeleHealth) [place] [address] Yue Darby MD [facility] HOSPICE [facility] [place] [address] documented as of this encounter Visit Diagnoses Diagnosis Ilioinguinal neuralgia of left side Arthralgia of lower leg, unspecified laterality Chronic left hip pain Pain in joint, pelvic region and thigh Irritable bowel syndrome, unspecified type Visceral hypersensitivity syndrome Other functional disorders of intestine Functional abdominal pain syndrome documented in this encounter Care Teams Sheet Fed Printer Relationship Specialty Start Date End Date Donte Padgett MD [address] [place] [address] PCP - General Family Medicine 08/24/15 documented as of this encounter
--- OUTSIDE RECORDS SUMMARY | 2024-03-04 16:55 | XMS_ITS | Encounter Summary ---
Author Organization [facility] Address [facility] [place] [address] Care Team Providers Care Signal Wirer Name Role Phone Donte Padgett MD Primary Care Provider [phone] Encounter Details Date Type Department Care Team (Latest Contact Info) Description 07/31/2022 Travel Social History Tobacco Use Types Packs/Day [...] PM EDT TH Visit (TeleHealth) [place] [address] Yue Darby MD [facility] HOSPICE [place] [address] 04/12/2024 11:30 AM EDT Office [place] [address] Yue Darby MD [facility] HOSPICE [place] [address] 04/28/2024 8:30 AM EDT TH Visit (TeleHealth) [place] [address] Yue Darby MD [facility] DR HOSPICE [place] [address] documented as of this encounter Visit Diagnoses Not on filedocumented in this encounter Care Teams Signal Wirer Relationship Specialty Start Date End Date Donte Padgett MD [address] [place] [address] PCP - General Family Medicine 08/24/15 documented as of this encounter
--- OUTSIDE RECORDS SUMMARY | 2024-03-04 16:55 | XMS_ITS | Encounter Summary ---
Author Organization [facility] Address [facility] [place] [address] Care Team Providers Care Plant Taxonomist Name Role Phone Donte Padgett MD Primary Care Provider [phone] Encounter Details Date Type Department Care Team (Late st Contact Info) Description 07/11/2022 11:30 AM EST [place] [address] Yue Darby MD [facility] [place] [address] Chronic, continuous use of opioids; Spasticity; Chronic left lower quadrant pain; Ilioinguinal neuralgia of left side; Arthralgia of lower leg, unspecified laterality; Chronic left hip pain; Irritable bowel syndrome, unspecified type; Visceral hypersensitivity syndrome; Functional abdominal pain syndrome; Abdominal pain, chronic, left lower quadrant Social [...] Sign Reading Time Taken Comments Blood Pressure 114/71 07/11/2022 11:18 AM EST Pulse 59 07/11/2022 11:18 AM EST Temperature - - Respiratory Rate - - Oxygen Saturation - - Inhaled Oxygen Concentration - - Weight 99.8 kg (220 lb) 07/11/2022 11:18 AM EST Height 193 cm (6' 4) 07/11/2022 11:18 AM EST Body Mass Index 26.78 07/11/2022 11:18 AM EST documented in this encounter Patient Instructions * Patient Instructions* Yue Darby MD - 07/11/2022 11:30 AM EST Increase gabapentin to 600 mg three times daily. Continue baclofen 20 mg four times daily. Add a flex dose of 10 mg which can be taken up to twicedaily with your 20 mg dose. STOP oxycodone. For now, continue the buprenorphine patch (Butrans, refilled today). I will explore whether we can get you buccal buprenorphine (Belbuca) to replace the Butrans. Start morphine IR 15 mg twice daily as needed for pain. Complete paperwork for medical cannabis. Let me know if you feel like you need to go back on the Cymbalta for anxiety and pain. Let's try the above changes first for at least a week. documented in this encounter Progress Notes * Yue Darby MD - 07/11/2022 11:30 AM EST Rehabilitation Medicine Follow-up Note Referring Provider: Donte Padgett Reason for Referral: Dr. Cesar Fuentes Primary Care Provider: Donte Padgett MD Patient ID: Aly De La Torre is a 32 y.o. right-handed male with history of C6 sensory incomplete spinal cord injury, resulting tetraplegia, neurogenic bowel and neurogenic bladder with five-year history of left lower quadrant pain of unclear etiology. History provided by: patient Subjective Interval History: Last seen by me via on 03/14/22. We have spoken on the phone since then as well.He is currently taking a leave from work. Overall doesn't feel as though the pain is any better controlled. Trigger point injections by GI intensified pain x 2.5 days. Has been trying different things, intentionally stopped taking oxycodone this week. Last dose was three days ago. Has not noted a difference with/without it. Placed a 20 mg/hr Butrans patch yesterday () morning. Typically had still been requiring oxycodone for breakthrough but never really felt that either was helping. Biggest concern is keeping the patch on. Tends to fall off in the shower. Has used tegaderm/bandaids and steroid spray with limited success. Still feels that pain is worse after meals. Limits meals to just dinner (usually eats a heavy meal--steak, chicken or porkchops). Hasn't noticed any change in pain depending on diet, including pig lead melter helper foods. Loves to cook. After eating remains seated for 2-3 hrs as pain gets worse during meals the gradually improves. Currently rates pain as 7/10. On average is 6-8/10 and at its worse is 9/10. Localizes to LLQ, lateral to umbilicus and just below. Burning, sharp. Current meds include gabapentin 300 mg TID, duloxetine 30 mg daily (although he stopped taking thisrecently since he did not note a benefit). His anxiety has been high (heart racing when in pain),mood overall is okay. Most days lies in bed worried about being in pain as soon as he gets up butgets out of bed anyways. Has not had any days where he's remained in bed. His father and sister check in on him and they have dinner together at least every other night. Sister is a HS psychologist and has given him some mindfulness exercises. Continues to feel like the baclofen is helping his LE spasms and would like to increase this if possible. Spasms are worse in the morning. Currently taking baclofen 20 mg QID. Is interested in discussing an IT pump for pain and/or spasticity. Functional Status as of 07/11/22 Kev for mobility in manual WC, ADLs, iADLs. 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 Past Medical History: No past medical history on file. Past Surgical History: Past Surgical History: Procedure Laterality Date ??? PRG UNLISTED DIAGNOSTIC GASTROENTEROLOGY PROCEDURE N/A 12/11/2015 VIDEO CAPSULE ENDOSCOPY performed by Lance Pandya MD at [facility] ??? PRO COLONOSCOPY, DIAGNOSTIC N/A 10/18/2015 COLONOSCOPY, DIAGNOSTIC performed by Seth Yeh MD at [facility] ? ? PRO INJECTION ANES AGENT &/ STEROID ILIOINGUINAL IH NERVES Left 11/27/2021 INJECTION ANESTHETIC, ILIOINGUINAL, ILIOHYPOGASTRIC (WRVU 1.75) performed by Mika East MD [facility] PAIN MGMT MSO ??? PRO UPPER GI ENDOSCOPY, BIOPSY N/A 10/18/2015 EGD WITH BIOPSY performed by Seth Yeh MD at [facility] Medications: Current Outpatient Medications on File Prior to Visit Medication Sig Dispense Refill ??? baclofen (LIORESAL) 20 mg Tablet Take 1 tablet by mouth 4 times daily. 120 tablet 3 ??? [DISCONTINUED] gabapentin (Neurontin) 300 mg Capsule Take 1 capsule by mouth 3 times daily for 90 days. 90 capsule 2 ??? [DISCONTINUED] buprenorphine (Butrans) 20 mcg/hour Patch Weekly Change 1 patch on the skin every 7 days. 4 patch 0 ??? polyethylene glycoL (Miralax) 17 gram Powder in Packet Take 17 g by mouth daily. ??? naloxone (Narcan) 4 mg/actuation [place], Non-Aerosol 1 each by Nasal route as needed (respiratory depression from opioid overdose). 2 each 3 ??? simethicone (MYLICON) 125 mg Tablet, Chewable Take 125 mg by mouth every 6 hours as needed for Heartburn. ??? naloxone (Narcan) 4 mg/actuation [place], Non-Aerosol 1 each by Nasal route as needed (respiratory depression from opioid overdose). 2 each 3 ??? bisacodyL (Dulcolax) [address] 1 suppository rectally daily. 60 suppository 3 ??? omeprazole 20 mg Tablet, Delayed Release (E.C.) Take 20 mg by mouth daily as needed. Prn heartburn, takes 2-3 x/week ??? [DISCONTINUED] oxyCODONE (Roxicodone) 5 mg Tablet Take 1 tablet by mouth every 6 hours as needed for Pain. (Patient not taking: Reported on 07/11/2022) 120 tablet 0 ??? haloperidoL (Haldol) 2 mg Tablet Take 1 tablet by mouth See Admin Instructions. Take 1 tablet at bedtime and may take an additional tablet BID PRN for nausea (Patient not taking: Reported on 07/11/2022) 120 tablet 0 ??? DULoxetine DR (Cymbalta) 30 mg Capsule, Delayed Release(E.C.) Take 1 capsule by mouth 2 times daily. (Patient not taking: Reported on 07/11/2022) 30 tablet 11 ??? [DISCONTINUED] triamcinolone (KENALOG) 0.147 mg/gram Aerosol Apply topically every 7 days. [place] area where pain patch will be placed and allow spray to dry prior to patch placement. (Patient nottaking: Reported on 07/11/2022) 63 g 0 Current Facility-Administered Medications on File Prior to Visit Medication Dose Route Frequency Provider Last Rate Last Admin ??? [DISCONTINUED] haloperidoL (Haldol) (2 mg/mL) oral liquid 2 mg 2 mg Oral Q6H PRN Jeff Darby MD Allergies: No Known Allergies ROS: Constitutional: No fever/chills GI: No nausea, vomiting, constipation, diarrhea; reviewed bowel program--daily or every other day usually late morning/mid-day, BMs are soft but formed and smooth : Denies difficulty straight cathing (empties bladder q4-6 hrs, does have cues that his bladder is full) Psych: +Feeling depressed and anxious (due to pain) Neuro: Stable tetraplegia Objective BP 114/71 (BP Location (NBP): Right arm, Patient Position: Sitting, BP Cuff Sizes: Large Adult (32-43 cm)) Pulse 59 Ht 193 cm (6' 4) Wt 99.8 kg (220 lb) BMI 26.78 kg/m?? Physical Exam: Gen: young man seated in manual WC, NAD HEENT: normocephalic, mucous membranes moist, sclera anicteric, pupils equal Resp: breathing comfortably on room air, no use of accessory muscles GI: soft, non-distended, tenderness to deep palpation two fingerbreadths left/lateral of umbilicus (does not radiate) Neuro: awake, alert, face symmetric, speech fluent, bilateral LE spasms elicited with passive dorsiflexion and hip flexion Psych: pleasant, conversant, not overtly anxious Data Review Labs: 2016 Hgb 9.6, MCV 65 Chem [...] No suspicious lesions. ?? IMPRESSION ?? 1. No acute pathology identified in the abdomen or pelvis. 2. Hepatomegaly with hepatic steatosis. 3. Mild mixed calcified and noncalcified atheromatous disease of the infrarenal abdominal aorta. MRI thoracic spine 10/28/2021: FINDINGS: Evaluation of the stock shipper view shows previous cervical fusion at the [...] this single AP view. ?? IMPRESSION 1. Bilateral hip osteoarthropathy. 2. No [...] joint fluid, which may be physiologic. ?? MRI lumbar spine without contrast 06/06/2016: There [...] the body the report. ?? MRI enterography 08/24/2015: GI tract: No dilated small or large bowel, bowel wall thickening, or mesenteric inflammation. ??No mucosal hyperenhancement. No evidence of Crohn's disease. The terminal ileum is visualized and is normal. The appendix is normal. No free fluid or focal fluid collection. ?? Liver: Normal. Spleen: Normal. Kidneys/adrenal glands: Normal. Pancreas: Normal. Lymph nodes: No lymphadenopathy. Osseous structures: No marrow signal abnormality. ?? IMPRESSION: Normal study. No evidence of Crohn's disease. ?? CT-guided psoas muscle injection 09/17/2016: EXAMINATION: CT GUIDED INJECTION TENDON ?? CLINICAL HISTORY: psoas muscle injection ?? TECHNIQUE: The procedure and risks were described informed consent was obtained. Patient was prepped and draped in a sterile manner 1% lidocaine was used for local anesthesia. Using CT fluoroscopic guidance a 20-gauge spinal needle was advanced into the left iliopsoas muscle. Thereafter 8 cc of Bupivicaine were injected. ?? COMPARISON: Lumbar spine MRI dated 06/06/2016 ?? FINDINGS: Normal attenuation and bulk of the psoas muscles. Preprocedure and postprocedure pain was evaluatedby the attending pain physician, Dr. Robinson East ?? IMPRESSION Successful uncomplicated diagnostic injection of the left psoas muscle with bupivacaine. Patient tofollow-up in the pain clinic. OPIOID PRESCRIBING Comments about ORT R in relation to this patient: Mother with long-standing mental illness, unclearSUD history; age 16-45; no personal history of substance abuse of psychologic disease Opioid Risk Category: low -PDMP reviewed 07/11/2022 -Opioid treatment agreement signed -Monthly visits ([facility]) -Naloxone prescribed 03/14/2022 -Annual random UDS (ordered, will be collected today 07/11/2022) UDS 07/11/2022 presumptive + buprenorphine and cannabinoids Assessment/Plan Assessment: 32 y.o. 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 He continues to use low daily OME [...] gabapentin to 600 mg three times daily -[place] opioid prescribing guidelines -To consider medical cannabis; patient looking into [place] program #Anxiety disorder (worsened by pain) -Gabapentin as above -Okay to resume duloxetine 30 mg daily if no notable improvement in anxiety with adjusted dose of gabapentin after 1 week -Psych referral -Mindfulness exercises #Risk of opioid-induced constipation #Neurogenic bowel -Continue daily or every other day Miralax and dulcolax suppositories/dig stim for bowel program Yue Darby MD Physical Medicine & Rehabilitation Department of Neurology Follow-up: 4 weeks (telehealth okay) then 3 months in person This was a 60 minute visit spent in counseling the patient and in reviewing the above imaging and diagnostic studies as well as coordination with GI, PCP and psychology. documented in this encounter Plan of Treatment Upcoming Encounters Date Type Department Care Team (Late st Contact Info) Description 03/17/2024 2:00 PM EDT TH Visit (TeleHealth) [place] [address] Yue Darby MD [facility] HOSP[facility] [place] [address] 04/12/2024 11:30 AM EDT Office [place] [address] Yue Darby MD [facility]OS[facility] [place] [address] 04/28/2024 8:30 AM EDT TH Visit (TeleHealth) [place] [address] Yue Darby MD [facility]OSP[facility] [place] [address] documented as of this encounter Procedures Procedure Name Priority Date/Time Associated Diagnosis Comments OPIOIDS CONFIRMATION PANEL, URINE ([place]) Routine 07/11/2022 1:22 PM EST RAPID DRUG SCREEN, URINE Routine 07/11/2022 1:22 PM EST Chronic, continuous use of opioids RAPID DRUG SCREEN W/ CONFIRMATION, URINE Routine 07/11/2022 1:22 PM EST THC (MARIJUANA), URINE, CONFIRMATION Routine 07/11/2022 1:22 PM EST documented in this encounter Results * THC (Marijuana), Urine Confirmation (07/11/2022 1:22 PM EST) Pathologist [facility] [place] U THC Conf Test ?Result ? Flag ??Unit ?? RefValue --- Carboxy-THC Confirmation, U ??Delta-8 Carboxy-Tetrahydroc annabinol by ?? Not Detected ? ng/mL ??Cutoff: 5 ?LC-MS/MS ??Delta-9 Carboxy-Tetrahydroc annabinol by ?? 51 ? ng/mL ??Cutoff: 5 ?LC-MS/MS ??Carboxy-THC Interpretation ?Positive. ? --ADDITIONAL INFORMATION-------- ?This report is intended for use in clinical monitoring and ?management of patients. ??It is not intended for use in ?employment-relate d testing. ?This test was developed and its performance characteristics ?determined by [facility] in a manner consistent with CLIA ?requirements. This test has not been cleared or approved by ?the U.S. Food and Drug Administration. ?Test Performed by: ?[facility] ?[address] [place] [address] ?Home Service Consultant: Jarad Casas M.D. Ph.D.; CLIA# [id number] [facility] Urine 07/11/2022 1:22 PM EST 07/14/2022 11:23 AM EST Narrative Resulting Agency Comment Spec In Lab Yue Darby MD LAB SEND OUT ORDERAB LES [facility] [place] [address] * Opioids Confirmation Panel, Urine (07/11/2022 1:22 PM EST) Targeted Opioid Panel, Urine (MAY) Test ?Result ? Flag ??Unit ?? RefValue ------- Targeted Opioid Screen, U ??List prescribed opioids ? See medication list ? ---ADDITIONAL INFORMATION------- ?Accuracy and completeness of declared medications on ?reports solely dependent on information submitted by ?client. ??Codeine ? Not Detected ? ng/mL ??Cutoff: 25 ?Tylenol 3 ??Duhqafj-2-kvgg-g lucuronide ?Not Detected ? ng/mL ??Cutoff: 100 ?Metabolite of codeine ??Morphine ?Not Detected ? ng/mL ??Cutoff: 25 ?Avinza, Inessa, MS Contin; Also a minor metabolite (10%) of ?codeine and can be seen in low concentrations (<2,000 ?ng/mL) with poppy seed ingestion. ??Roaaaigt-1-jdqr- glucuronide ? Not Detected ? ng/mL ??Cutoff: 100 ?Metabolite of morphine ??6-monoacetylmorp chhaya ?Not Detected ? ng/mL ??Cutoff: 25 ?Metabolite of heroin ??Hydrocodone ? Not Detected ? ng/mL ??Cutoff: 25 ?Lortab, [place], Vicodin; Also a very minor metabolite of ?codeine and impurity (<1%) of oxycodone. ??Norhydrocodone ?Not Detected ? ng/mL ??Cutoff: 25 ?Metabolite of hydrocodone ??Dihydrocodeine ?Not Detected ? ng/mL ??Cutoff: 25 ?Metabolite of hydrocodone ??Hydromorphone ? Not Detected ? ng/mL ??Cutoff: 25 ?Dilaudid, Exalgo; Also a metabolite of hydrocodone and a ?minor (<5%) metabolite of morphine. ??Hydromorphone-3- beta-glucuronide ?Not Detected ? ng/mL ??Cutoff: 100 ?Metabolite of hydromorphone ??Oxycodone ? Not Detected ? ng/mL ??Cutoff: 25 ?Endocet, Percocet, Oxycontin ??Noroxycodone ?Not Detected ? ng/mL ??Cutoff: 25 ?Metabolite of oxycodone ??Oxymorphone ? Not Detected ? ng/mL ??Cutoff: 25 ?Numorphan, Opana; Also a metabolite of oxycodone. ??Ktsvpwpxinx-8-ga ta-glucuronide ?Not Detected ? ng/mL ??Cutoff: 100 [...] ?Not Detected ? ng/mL ??Cutoff: 25 ?Narcan ??Cosvdwvq-0-irts- glucuronide ? Not Detected ? ng/mL ??Cutoff: [...] of buprenorphine ??Opioid Interpretation ? SEE COMMENTS ?No opioids were detected. The absence of expected drug(s) ?and/or drug metabolite(s) may indicate non-compliance, ?altered pharmacokinetics, inappropriate timing of specimen ?collection relative to drug administration, ?diluted/adultera merle urine, or limitations of testing. ? ---ADDITIONAL INFORMATION------- ?This test was developed and its performance characteristics ?determined by [facility] in a manner consistent with CLIA ?requirements. This test has not been cleared or approved by ?the U.S. Food and Drug Administration. ?Test Performed by: ?[facility] [address] ?[address] [place] [address] ?Home Service Consultant: Jarad Casas M.D. Ph.D.; CLIA# [id number] [facility] Urine 07/11/2022 1:22 PM EST 07/14/2022 11:23 AM EST Yue Darby MD LAB SEND OUT ORDERAB LES [facility] [place] [address] * (ABNORMAL) Rapid Drug Screen w/ Confirmation, Urine (07/11/2022 1:22 PM EST) Barbiturates Screen, Urine None Detected None Detected [facility] Comment: The barbiturate screen detects barbiturates [...] Benzodiazepines Screen, Urine None Detected None Detected [facility] Comment: The benzodiazepines screen detects benzodiazepines [...] Cocaine Screen, Urine None Detected None Detected [facility] Comment: The cocaine metabolites screen detects benzoylecgonine (Cocaine Metabolite) at concentrations >150 ng/mL. A ? Presumptive Positive? result indicates that the screening result was positive but has not yet been confirmed by a highly-specific method. As with any screen, occasional false positive results from cross-reacting substances may occur. Not for Medico-Legal Purposes. Methadone Metabolites Screen, Urine None Detected None Detected [facility] Comment: The methadone metabolite screen detects EDDP (major methadone metabolite) at concentrations >100 ng/mL. A ? Presumptive Positive? result indicates that the screening result was positive but has not yet been confirmed by a highly-specific method. As with any screen, occasional false positive results from cross-reacting substances may occur. Not for Medico-Legal Purposes. Opiate Screen, Urine None Detected None Detected [facility] Comment: The opiates screen detects opiates [...] Cannabinoid Screen, Urine Presumptive Pos(A) None Detected [facility] Comment: The marijuana metabolites screen detects the THC metabolite (17-ikj-4-carboxy-delta 9-THC) at concentrations >20 ng/mL. A ? Presumptive Positive? result indicates that the screening result was positive but has not yet been confirmed by a highly-specific method. As with any screen, occasional false positive results from cross-reacting substances may occur. Not for Medico-Legal Purposes. Oxycodone Screen, Urine None Detected None Detected [facility] Comment: The oxycodone screen detects oxycodone and oxymorphone at concentrations >100 ng/mL. A ? Presumptive Positive? result indicates that the screening result was positive but has not yet been confirmed by a highly-specific method. As with any screen, occasional false positive results from cross-reacting substances may occur. Not for Medico-Legal Purposes. Buprenorphine Screen, Urine Presumptive Pos(A) None Detected [facility] Comment: The buprenorphine screen detects buprenorphine [...] characteristics of this test were determined by [facility] in accordance with CLIA requirements. This laboratory is qualified under CLIA to perform high-complexity testing. Fentanyl Screen, Urine None Detected None Detected [facility] Comment: The fentanyl screen detects fentanyl [...] characteristics of this test were determined by [facility] in accordance with CLIA requirements. This laboratory is qualified under CLIA to perform high-complexity testing. Tricyclics Screen, Urine None Detected None Detected [facility] Comment: The tricyclics screen detects tricyclic [...] characteristics of this test were determined by [facility] in accordance with CLIA requirements. This laboratory is qualified under CLIA to perform high-complexity testing. Ethanol Screen, Urine None Detected None Detected [facility] Comment:This urine ethanol a ssay detects ethanol at concentrations >/= 100 mg/L. Amphetamines Screen, Urine None Detected None Detected [facility] Comment: The amphetamine screen detects d-amphetamine and d-methamphetamine at concentrations >300 ng/mL. A ? Presumptive Positive? result indicates that the screening result was positive but has not yet been confirmed by a highly-specific method. As with any screen, occasional false positive results from cross-reacting substances may occur. Not for Medico-Legal Purposes. Adulterants Screen, Urine None Detected None Detected [facility] Comment: No adulteration or dilution of this urine sample was detected. All urine samples submitted for urine drugs of abuse analysis are tested for creatinine concentration, pH, and for the presence of oxidants, nitrites, and chromate. Urine 07/11/2022 1:22 PM EST 07/11/2022 1:33 PM EST Narrative Resulting Agency Comment Spec In Lab Yue Darby MD CHEMISTRY ORDERABLES Performing Organization Address City/[facility]/ZIP Co de Phone Number [facility] [place] [address] * Rapid Drug Screen, Urine (GUILLE Request) (07/11/2022 1:22 PM EST) GUILLE Conf Requested Yes [facility] GUILLE Requested See Comment [facility] Comment:Refer to Rapid Drug Screen w/ Confirmation, Urine for results. Urine 07/11/2022 1:22 PM EST 07/11/2022 1:33 PM EST Narrative Resulting Agency Comment Spec In Lab Yue Darby MD URINE ORDERABLES Performing Organization Address City/[facility] Co de Phone Number [facility] [place] [address] documented in this encounter Visit Diagnoses Diagnosis Chronic, continuous use of opioids Opioid type dependence, continuous Spasticity Abnormal involuntary movements Chronic left lower quadrant pain Abdominal pain, left lower quadrant Ilioinguinal neuralgia of left side Arthralgia of lower leg, unspecified laterality Chronic left hip pain Pain in joint, pelvic region and thigh Irritable bowel syndrome, unspecified type Visceral hypersensitivity syndrome Other functional disorders of intestine Functional abdominal pain syndrome Abdominal pain, chronic, left lower quadrant Abdominal pain, left lower quadrant documented in this encounter Care Teams Plant Taxonomist Relationship Specialty Start Date End Date Donte Padgett MD [address] [address] PCP - General Family Medicine 08/24/15 documented as of this encounter
--- OUTSIDE RECORDS SUMMARY | 2024-03-04 16:55 | XMS_ITS | Encounter Summary ---
[facility] Organization [facility] Address [facility] [place] [address] Care Team Providers Care Care Management Coordinator Name Role Phone Donte Padgett MD Primary Care Provider +1 [phone] Encounter Details Date Type Department Care Team (Latest Contact Info) Description 06/05/2022 Travel Social History Tobacco Use Types Packs/Day [...] PM EDT TH Visit (TeleHealth) [place] [address] Yue Darby MD [facility] HOSPICE AND [place] [address] 04/12/2024 11:30 AM EDT [place] [address] Yue Darby MD [facility] HOSPICE AND [place] [address] 04/28/2024 8:30 AM EDT TH Visit (TeleHealth) [place] [address] Yue Darby MD [facility] DR HOSPICE AND [place] [address] documented as of this encounter Visit Diagnoses Not on filedocumented in this encounter Care Teams Care Management Coordinator Relationship Specialty Start Date End Date Donte Padgett MD [address] [place] [address] PCP - General Family Medicine 08/24/15 documented as of this encounter
--- OUTSIDE RECORDS SUMMARY | 2024-03-04 16:55 | XMS_ITS | Encounter Summary ---
Author Organization [facility] Address [facility] [place] [address] Care Team Providers Care Flower Buncher Or Picker Name Role Phone Donte Padgett MD Primary Care Provider +1 [phone] Reason for Visit * Reason Onset Date Comments Appointment 07/15/2022 Encounter Details Date Type Department Care Team (Late st Contact Info) Description 07/15/2022 [place] [address] Yue Darby MD [facility] HOSPICE AND [place] [address] Appointment Social History Tobacco Use Types Packs/Day [...] * Telephone Encounter - Torri David - 07/15/2022 9:32 AM EST Scheduling Instructions Provider: Dr Darby Visit Type (paste CARLOS Instructions or manually enter): Return in about 4 weeks (around 08/08/2022) for Telehealth and 3 months in person If EMG Visit needed list diagnosis for the EMG to be used in Decision Tree: Appt Note: Chronic, continuous use of opioids Additional Info Needed: OK PER DR Darby to use a new pt spot for telehealth. documented in this encounter Plan of Treatment Upcoming Encounters Date Type Department Care Team (Late st Contact Info) Description 03/17/2024 2:00 PM EDT TH Visit (TeleHealth) [place] [address] Yue Darby MD [facility] DR HOSPICE AND [place] [address] 04/12/2024 11:30 AM EDT [place] [address] Yue Darby MD [facility] DR HOSPICE AND [place] [address] 04/28/2024 8:30 AM EDT TH Visit (TeleHealth) [place] [address] Yue Darby MD [facility] DR HOSPICE AND [place] [address] documented as of this encounter Visit Diagnoses Not on filedocumented in this encounter Care Teams Flower Buncher Or Picker Relationship Specialty Start Date End Date Donte Padgett MD [address] [place] [address] PCP - General Family Medicine 08/24/15 documented as of this encounter
--- OUTSIDE RECORDS SUMMARY | 2024-03-04 16:55 | XMS_ITS | Encounter Summary ---
Author Organization [facility] Address [facility] [place] [address] Care Team Providers Care Director Automotive Name Role Phone Donte Padgett MD Primary Care Provider +1 [phone] Reason for Visit * Reason Onset Date Comments Medication Refill 01/21/2023 Encounter Details Date Type Department Care Team (Late st Contact Info) Description 01/21/2023 [place] [phone] Yue Darby MD [facility] DR HOSPICE AND [place] [address] Chronic left lower quadrant pain; Chronic, continuous [...] encounter Miscellaneous Notes * Telephone Encounter - Monica Berger RN - 01/21/2023 2:33 PM EDT Surescript request for :buprenorphine HCL (Belbuca) Film Last rx: 12/23/22 Quantity: 60 Refills: 0 From last note: #Left lower quadrant pain, worse with eating -Continue Belbuca 750 mcg films BID (refill to be sent 12/23/22) -Continue hydromorphone 8-12 mg BID prn (2-3 mg IV prn veronica-operatively; hope to wean this following his upcoming surgery) -Continue gabapentin 600 mg three times daily -[place] opioid prescribing guidelines Last appt:12/16/22 Next appt: 01/30/23 * Telephone Encounter - Leyla Romero - 01/21/2023 1:52 PM EDT Call Center / Linole[facility] [employer] Message Prescription Refill Request Clinical Linoleum [employer]ic message Provider patient sees in Clinic: Yue Darby MD Caller and relationship (if other than patient-full name): Aly De La Torre Call back Number: [phone] Ok to leave a message: Yes Any issues needing to be addressed prior to medication refill? (ex: dose increase, not at pharmacy): Shively of Med: buprenorphine HCL (Belbuca) Film [[id number]] Strength of Pills: 750 mcg Film Dosing Directions: Place 1 Film inside cheek 2 times daily. How Patient is Currently Taking Medication: as prescribed 30 or 90 Day Supply: 30 day supply Pharmacy: [id number] Last Appointment: 12/16/2022 Next Appointment: 01/30/2023 Is Patient out of Medication?: No Please call patient with any further questions or concerns regarding his medication refill request. Thank you. documented in this encounter Plan of Treatment Upcoming Encounters Date Type Department Care Team (Late st Contact Info) Description 03/17/2024 2:00 PM EDT TH Visit (TeleHealth) [place] [address] Yue Darby MD [facility] HOSPICE AND [place] [address] 04/12/2024 11:30 AM EDT [place] [address] Yue Darby MD [facility] HOSPICE AND [place] [address] 04/28/2024 8:30 AM EDT TH Visit (TeleHealth) [place] [address] Yue Darby MD [facility] HOSPICE AND [place] [address] documented as of this encounter Visit Diagnoses Diagnosis Chronic left lower quadrant pain Abdominal pain, left lower quadrant Chronic, continuous use of opioids Opioid type dependence, continuous documented in this encounter Care Teams Director Automotive Relationship Specialty Start Date End Date Donte Padgett MD [address] [place] [address] PCP - General Family Medicine 08/24/15 documented as of this encounter
--- OUTSIDE RECORDS SUMMARY | 2024-03-04 16:55 | XMS_ITS | Encounter Summary ---
Author Organization [facility] [place] [address] Care Team Providers Care Box Spinner Name Role Phone Donte Padgett MD Primary Care Provider +1 [phone] Encounter Details Date Type Department Care Team (Late st Contact Info) Description 07/14/2022 Orders [place] [phone] Milady Gotti APRN [facility] [place] [address] Celiac artery stenosis; Abdominal pain, chronic, left lower quadrant; Abnormal findings on diagnostic imaging of other abdominal regions, including retroperitoneum Social History Tobacco Use Types Packs/Day Years [...] PM EDT TH Visit (TeleHealth) [place] [address] Yue Darby MD [facility] HOSPICE AND PALLIATIVE [place] [address] 04/12/2024 11:30 AM EDT [place] [address] Yue Darby MD [facility] HOSPICE AND PALLIATIVE [place] [address] 04/28/2024 8:30 AM EDT TH Visit (TeleHealth) [place] [address] Yue Darby MD [facility] HOSPICE AND PALLIATIVE [place] [address] documented as of this encounter Visit Diagnoses Diagnosis 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
--- OUTSIDE RECORDS SUMMARY | 2024-03-04 16:55 | XMS_ITS | Encounter Summary ---
Author Organization [facility] [place] [address] Care Team Providers Care Supervisor Plastics Name Role Phone Donte Padgett MD Primary Care Provider [phone] [phone] Reason for Referral * Consultation (Routine) - Closed Specialty Diagnoses / Procedures Referred By Contac t Referred To Contact Vascular Surgery Diagnoses Chronic left lower quadrant pain ANY PROVIDER Yue Darby MD [facility] DR HOSPICE AND PALLIAT[place] [address] [facility] Vascular Surg [address] [place] [address] Referral ID Status Reason Start Date Expiration Date V isits Requested Visits Authorized [id number] Closed Consult, Test & Treat 07/15/2022 07/15/2023 1 1 Encounter Details Date Type Department Care Team (Late st Contact Info) Description 07/15/2022 [place] [address] Yue Darby MD [facility] DR HOSPICE AND PALLIATIVE [place] [address] Chronic left lower quadrant pain Social History [...] PM EDT TH Visit (TeleHealth) [place] [address] Yue Darby MD [facility] DR HOSPICE AND PALLIATIVE [place] [address] 04/12/2024 11:30 AM EDT [place] [address] Yue Darby MD [facility] HOSPICE AND PALLIATIVE [place] [address] 04/28/2024 8:30 AM EDT TH Visit (TeleHealth) [place] [address] Yue Darby MD [facility] HOSPICE AND PALLIATIVE [place] [address] Scheduled Referrals Name Type Priority Associated Diagnoses Orde r Schedule Referral to Vascular Surgery Outpatient Referral Routine Chronic left lower quadrant pain Ordered: 07/15/2022 documented as of this encounter Visit Diagnoses Diagnosis Chronic left lower quadrant pain Abdominal pain, left lower quadrant documented in this encounter Care Teams Supervisor Plastics Relationship Specialty Start Date End Date Donte Padgett MD [address] [facility] [address] [place] [address] PCP - General Family Medicine 08/24/15 documented as of this encounter
--- OUTSIDE RECORDS SUMMARY | 2024-03-04 16:55 | XMS_ITS | Encounter Summary ---
Author Organization [facility] Address [facility] [place] [address] Care Team Providers Care Exercise Instruct Name Role Phone Donte Padgett MD Primary Care Provider +1 [phone] Encounter Details Date Type Department Care Team (Late st Contact Info) Description 06/17/2022 [place] [address] Yue Darby MD [facility] DR HOSPICE [place] [address] Ilioinguinal neuralgia of left side; Arthralgia of lower leg, unspecified laterality; Chronic left hip pain; Irritable bowel syndrome, unspecified type; Visceral hypersensitivity syndrome; Functional abdominal pain syndrome; Spasticity Social History Tobacco Use Types Packs/Day [...] PM EDT TH Visit (TeleHealth) [place] [address] Yue Darby MD [facility] HOSPICE [place] [address] 04/12/2024 11:30 AM EDT [place] [address] Yue Darby MD [facility] DR HOSPICE [place] [address] 04/28/2024 8:30 AM EDT TH Visit (TeleHealth) [place] [address] Yue Darby MD [facility] HOSPICE [place] [address] documented as of this encounter Visit Diagnoses Diagnosis Ilioinguinal neuralgia of left side Arthralgia of lower leg, unspecified laterality Chronic left hip pain Pain in joint, pelvic region and thigh Irritable bowel syndrome, unspecified type Visceral hypersensitivity syndrome Other functional disorders of intestine Functional abdominal pain syndrome Spasticity Abnormal involuntary movements documented in this encounter Care Teams Exercise Instruct Relationship Specialty Start Date End Date Donte Padgett MD [address] [place] [address] PCP - General Family Medicine 08/24/15 documented as of this encounter
--- OUTSIDE RECORDS SUMMARY | 2024-03-04 16:55 | XMS_ITS | Encounter Summary ---
Author Organization [facility] Address [facility] [place] [address] Care Team Providers Care Transportation Dispatcher Name Role Phone Donet Padgett MD Primary Care Provider +1 -[phone] Encounter Details Date Type Department Care Team (Late st Contact Info) Description 10/13/2022 Ancillary Procedure [place] [address] Donte Padgett MD [address] [place], [place] [address] Social History Tobacco Use Types Packs/Day Years [...] PM EDT TH Visit (TeleHealth) [place] [address] Yue Darby MD [facility] HOSPICE AND [place] [address] 04/12/2024 11:30 AM EDT [place] [address] Yue Darby MD [facility] HOSPICE AND [place] [address] 04/28/2024 8:30 AM EDT TH Visit (TeleHealth) Neurology at [facility] [place] [address] Yue Darby MD [facility] HOSPICE AND [place] [address] documented as of this encounter Procedures Procedure Name Priority Date/Time Associated Diagnosis Comments FILM LIBRARY STORAGE ONLY CT ABDOMEN AND PELVIS Routine 10/13/2022 12:00 AM EDT documented in this encounter Results * Film Library- Storage Only CT Abdomen & Pelvis (10/13/2022 12:00 AM EDT) Narrative [facility] - 03/06/2023 1:34 PM EDT This exam is auto-finalizing. It's purpose is for storage only. Donte Padgett MD IMG FILM LIBRARY ORDERABLES Performing Organization Address City/State/[facility] Co de Phone Number [place], [place] documented in this encounter Visit Diagnoses Not on filedocumented in this encounter Care Teams Transportation Dispatcher Relationship Specialty Start Date End Date Donte Padgett MD [address] [place] [address] PCP - General Family Medicine 08/24/15 documented as of this encounter
--- OUTSIDE RECORDS SUMMARY | 2024-03-04 16:55 | XMS_ITS | Encounter Summary ---
Author Organization [facility] Address [facility] [place] [address] Care Team Providers Care Cook Helper Preserves Name Role Phone Donte Padgett MD Primary Care Provider +1 -[phone] Reason for Visit * Reason Onset Date Comments Appointment 10/13/2022 Encounter Details Date Type Department Care Team (Late st Contact Info) Description 10/13/2022 Tele[place] [address] Yue Darby MD [facility] HOSPICE [place] [address] Appointment Social History Tobacco Use Types Packs/Day [...] * Telephone Encounter - Heena Long - 10/13/2022 4:10 PM EDT Scheduling Instructions Provider: Wilner Visit Type (paste CARLOS Instructions or manually enter): FUV or myDH (follow-up) If EMG Visit needed list diagnosis for the EMG to be used in Decision Tree: Appt Note: Follow-up Chronic, continuous use of opioids Additional Info Needed: encounter 07/15/22 3touches * Telephone Encounter - Heena Long - 10/13/2022 4:09 PM EDT ----- Message from Yue Darby MD sent at 10/10/2022 10:12 AM EDT ----- Regarding: Follow-up appointment Please call patient to schedule a follow-up appointment with me after his upcoming Pain clinic appt. Telehealth is okay. documented in this encounter Plan of Treatment Upcoming Encounters Date Type Department Care Team (Late st Contact Info) Description 03/17/2024 2:00 PM EDT TH Visit (TeleHealth) [place] [address] Yue Darby MD [facility] DR HOSPICE [place] [address] 04/12/2024 11:30 AM EDT [place] [address] Yue Darby MD [facility] DR HOSPICE [place] [address] 04/28/2024 8:30 AM EDT TH Visit (TeleHealth) [place] [address] Yue Darby MD [facility] DR HOSPICE [place] [address] documented as of this encounter Visit Diagnoses Not on filedocumented in this encounter Care Teams Cook Helper Preserves Relationship Specialty Start Date End Date Donte Padgett MD [address] [place] [address] [address] [place] [address] PCP - General Family Medicine 08/24/15 documented as of this encounter
--- OUTSIDE RECORDS SUMMARY | 2024-03-04 16:55 | XMS_ITS | Encounter Summary ---
Author Organization [facility] Address [facility] [place] [address] Care Team Providers Care Engineer/Conductor Name Role Phone Donte Padgett MD Primary Care Provider +1 -[phone] Encounter Details Date Type Department Care Team (Late st Contact Info) Description 11/13/2022 [place] [address] Yue Darby MD [facility] DR HOSPICE [place] [address] Social History Tobacco Use Types Packs/Day Years [...] * Telephone Encounter - Torri David - 11/13/2022 2:58 PM EDT Left massage patient has teleheatlh with Dr Darby at 930 11/14/2022. documented in this encounter Plan of Treatment Upcoming Encounters Date Type Department Care Team (Late st Contact Info) Description 03/17/2024 2:00 PM EDT TH Visit (TeleHealth) [place] [address] Yue Darby MD [facility] HOSPICE [place] [address] 04/12/2024 11:30 AM EDT Office Visit Neurology at [place] [phone] Yue Darby MD [facility] HOSPICE [place] [address] 04/28/2024 8:30 AM EDT TH Visit (TeleHealth) [place] [address] Yue Darby MD [facility] HOSPICE [place] [address] documented as of this encounter Visit Diagnoses Not on filedocumented in this encounter Care Teams Engineer/Conductor Relationship Specialty Start Date End Date Donte Padgett MD [address] [place] [address] PCP - General Family Medicine 08/24/15 documented as of this encounter
--- OUTSIDE RECORDS SUMMARY | 2024-03-04 16:56 | XMS_ITS | Encounter Summary ---
Author Organization [facility] [place] [address] Care Team Providers Care Cycle Repairer Name Role Phone Donte Padgett MD Primary Care Provider [phone] [phone] Reason for Referral * Diagnostic Test (Routine) - Closed Specialty Diagnoses / Procedures Referred By Contfercho t Referred To Contact Radiology Diagnoses Ilioinguinal neuralgia of left side Arthralgia [...] status migrainosus, not intractable, unspecified migraine type Abnormal findings on diagnostic imaging of other abdominal regions, including retroperitoneum Procedures MRI Angiogram Abdomen wwo Contrast MRI Angiogram Abdomen wo Contrast Milady Gotti APRN [facility] [place] [address] [place] [address] Referral ID Status Reason Start Date Expiration Date V isits Requested Visits Authorized [id number] Closed Specialty Service Requested 04/21/2022 10/21/2023 1 1 Reason for Visit * Diagnostic Test (Routine) - Closed Specialty Diagnoses / Procedures Referred By Contac t Referred To Contact Radiology Diagnoses Ilioinguinal neuralgia of left side Arthralgia [...] status migrainosus, not intractable, unspecified migraine type Abnormal findings on diagnostic imaging of other abdominal regions, including retroperitoneum Procedures MRI Angiogram Abdomen wwo Contrast MRI Angiogram Abdomen wo Contrast Milady Gotti [facility] [place] [address] [place] [address] Referral ID Status Reason Start Date Expiration Date V isits Requested Visits Authorized [id number] Closed Specialty Service Requested 04/21/2022 10/21/2023 1 1 Encounter Details Date Type Department Care Team (Latest Contact Info) Description 06/05/2022 2:29 PM EST - 06/05/2022 11:59 PM EST Hospital [place] [address] Milady Gotti [facility] [place] [address] Ilioinguinal neuralgia of left side; Arthralgia of [...] without status migrainosus, not intractable, unspecified migraine type; Abnormal findings on diagnostic imaging of other abdominal regions, including retroperitoneum Discharge Disposition: Home Social History Tobacco Use Types Packs/Day Years Used Date Smoking Tobacco: Every Day Cigarettes Smokeless Tobacco: Never Alcohol Use Standard Drinks/Week Comments No 0 (1 standard drink = 0.6 oz pur e alcohol) Sex and Gender Information Value Date Recorded Sex Assigned at Not on file Gender Identity Not on file Sexual Orientation Not on file documented as of this encounter Medications at Time of Discharge Medication Sig Dispensed Refills Start Date End Date polyethylene glycoL (Miralax) 17 gram Powder in Packet Take 17 g by mouth daily. omeprazole 20 mg Tablet, Delayed Release (E.C.) Take 20 mg by mouth daily as needed. Prn heartburn, takes 2-3 x/week buprenorphine (Butrans) 20 mcg/hour Patch WeeklyIndications:Abdo sree pain, chronic, left lower quadrant Change 1 patch on the skin every 7 days. 4 patch 06/03/2022 07/11/2022 haloperidoL (Haldol) 2 mg TabletIndications:Naus ea Take 1 tablet by mouth See Admin Instructions. Take 1 tablet at bedtime and may take an additional tablet BID PRN for nausea 120 tablet 06/03/2022 09/18/2022 oxyCODONE (Roxicodone) 5 mg TabletIndications:Silk Screen Printer liam left lower quadrant pain Take 1 tablet by mouth every 6 hours as needed for Pain. 120 tablet 05/13/2022 06/13/[address] (Cymbalta) 30 mg Capsule, Delayed Release(E.C.)Indicatio ns:Abdominal pain, chronic, left lower quadrant,Depression, unspecified depression type Take 1 capsule by mouth 2 times daily. 30 tablet 11 04/24/2022 11/14/2022 gabapentin (Neurontin) 100 mg CapsuleIndications:Michelle oinguinal neuralgia of left side,Arthralgia of lower leg, unspecified laterality,Chronic left hip pain,Irritable bowel syndrome, unspecified type,Visceral hypersensitivity syndrome,Functional abdominal pain syndrome Take 1 capsule by mouth 3 times daily for 90 days. 270 capsule 04/21/2022 06/17/2022 triamcinolone (KENALOG) 0.147 mg/gram AerosolIndications:Karl matitis due to topical drug Apply topically every 7 days. [place] area where pain patch will be placed and allow spray to dry prior to patch placement. 63 g 04/10/2022 07/11/2022 baclofen (Lioresal) 10 mg TabletIndications:Spas ticity Take 1.5 tablets by mouth 3 times daily. Take 15 mg three times daily (x 1 week). May increase to 20 mg three times daily after a week. 180 tablet 3 03/14/2022 06/17/2022 naloxone (Narcan) 4 mg/actuation [place], Non-AerosolIndications :Chronic left lower quadrant pain 1 each by Nasal route as needed (respiratory depression from opioid overdose). 2 each 3 03/14/2022 07/03/2023 simethicone (MYLICON) 125 mg Tablet, Chewable Take 125 mg by mouth every 6 hours as needed for Heartburn. 07/24/2023 naloxone (Narcan) 4 mg/actuation [place], Non-AerosolIndications :Chronic left lower quadrant pain 1 each by Nasal route as needed (respiratory depression from opioid overdose). 2 each 3 02/25/2022 07/03/2023 bisacodyL (Dulcolax) 10 mg SuppositoryIndications :Neurogenic bowel Place 1 suppository rectally daily. 60 suppository 3 02/11/2022 01/30/2023 documented as of this encounter Plan of Treatment Upcoming Encounters Date Type Department Care Team (Late st Contact Info) Description 03/17/2024 2:00 PM EDT TH Visit (TeleHealth) [place] [address] Yue Darby MD [facility] [place] [address] 04/12/2024 11:30 AM EDT Office [place] [address] Yue Darby MD [facility] [place] [address] 04/28/2024 8:30 AM EDT TH Visit (TeleHealth) [place] [address] Yue Darby MD [facility] HOSPICE [facility] [place] [address] documented as of this encounter Procedures Procedure Name Priority Date/Time Associated Diagnosis Comments MRI ANGIOGRAM ABDOMEN WWO CONTRAST Routine 06/05/2022 4:05 PM EST Ilioinguinal neuralgia of left side Arthralgia [...] status migrainosus, not intractable, unspecified migraine type Abnormal findings on diagnostic imaging of other abdominal regions, including retroperitoneum documented in this encounter Results * MRI Angiogram Abdomen wwo Contrast (06/05/2022 4:05 PM EST) Anatomical Region Laterality Modality Abdomen Magnetic Resonan ce Impressions 06/06/2022 10:11 AM EST Normal SMA/SMV. No evidence of SMA syndrome or mesenteric ischemia. I have personally reviewed the image(s) and the resident's interpretation and agree with the findings, Ramakrishna Vieyra MD at 06/06/2022 10:11 AM Thank you for letting us participate in the care of this patient. ??If you are a health care provider and have any questions regarding this report, please contact the number below. ??For patients who have questions please contact the health personal care aid that requested your imaging first. ? Electronically signed by: Ramakrishna Vieyra MD, [facility] ([phone]), at 06/06/2022 10:11 AM Narrative 06/06/2022 10:11 AM EST EXAMINATION: MRI ANGIOGRAM ABDOMEN WWO CONTRAST CLINICAL HISTORY: abd pain, vomiting, rule out SMA syndrome, mesenteric ischemia TECHNIQUE: Multiplanar, multisequence MRA of the abdomen was performed with imaging obtained prior to and following the intravenous administration of 20ml Dotarem. COMPARISON: CT abdomen and pelvis 02/24/2022 FINDINGS: Vasculature: Abdominal aorta: Normal. Celiac axis: Variant anatomy with the splenic artery, common hepatic artery, and left gastric artery having independent origins from the aorta.. Severe stenosis at the origin of the [...] or loculated fluid collection. Marrow Signal: Normal. Procedure Note Ramakrishna Vieyra MD - 06/06/2022 EXAMINATION: MRI ANGIOGRAM ABDOMEN WWO CONTRAST CLINICAL HISTORY: abd pain, vomiting, rule out SMA syndrome, mesentericischemia TECHNIQUE: Multiplanar, multisequence MRA of the abdomen was performedwith imaging obtained prior to and following the intravenous administration of20ml Dotarem. COMPARISON: CT abdomen and pelvis 02/24/2022 FINDINGS: Vasculature: Abdominal aorta: Normal. Celiac axis: Variant anatomy with the splenic artery, common hepaticartery, and left gastric artery having independent origins from the aorta.. Severestenosis at the origin of the splenic artery. SMA: Normal. Normal aortomesenteric angle measuring 55 degrees. Normalaorta mesenteric angle measuring 11 mm. INES: Normal. [...] evidence of SMA syndrome or mesenteric ischemia. I have personally reviewed the image(s) and the resident's interpretationand agree with the findings, Ramakrishna Vieyra MD at 06/06/2022 10:11 AM Thank you for letting us participate in the care of this patient. If youare a health care provider and have any questions regarding this report,please contact the number below. For patients who have questions please contactthe health personal care aid that requested your imaging first. Electronically signed by: Ramakrishna Vieyra MD, [facility]([phone]), at 06/06/2022 10:11 AM Milady Leavitt [facility] MRI ORDERABLES documented in this encounter Visit Diagnoses Diagnosis [...] status migrainosus, not intractable, unspecified migraine type Abnormal findings on diagnostic imaging of other abdominal regions, including retroperitoneum documented in this encounter Administered Medications Inactive Administered Medications - up to 3 most recent administrations Medication Order MAR Action Action Date Dose Rate Site gadoterate meglumine (Dotarem) (0.5 mMol/mL) injection solution 0-100 mL 0-100 mL, Intravenous, ONCE PRN, 1 dose, Starting on Thu06/05/22 at 1606, Until Belen 06/05/22 at 1606, Per Protocol, Radiology Contrast, Routine Given 06/05/2022 4:06 PM EST 20 mLs documented in this encounter Care Teams Cycle Repairer Relationship Specialty Start Date End Date Donte Padgett MD [address] [place] [address] PCP - General Family Medicine 08/24/15 documented as of this encounter
--- OUTSIDE RECORDS SUMMARY | 2024-03-04 16:56 | XMS_ITS | Encounter Summary ---
Author Organization [facility] Address [facility] [place] [address] Care Team Providers Care Solar Sales Name Role Phone Donte Padgett MD Primary Care Provider [phone] [phone] Encounter Details Date Type Department Care Team (Late st Contact Info) Description 08/20/2021 Orders Only Palliative [place] [address] Yue Darby MD [facility] HOSPICE [place] [address] Abdominal pain, chronic, left lower quadrant Social [...] PM EDT TH Visit (TeleHealth) [place] [address] Yue Darby MD [facility] HOSPICE [place] [address] 04/12/2024 11:30 AM EDT Office [place] [phone] Yue Darby MD [facility] HOSPICE [place] [address] 04/28/2024 8:30 AM EDT TH Visit (TeleHealth) [place] [address] Yue Darby MD [facility] HOSPICE [place] [address] documented as of this encounter Visit Diagnoses Diagnosis Abdominal pain, chronic, left lower quadrant Abdominal pain, left lower quadrant documented in this encounter Care Teams Solar Sales Relationship Specialty Start Date End Date Donte Padgett MD [address] [place] [address] PCP - General Family Medicine 08/24/15 documented as of this encounter
--- OUTSIDE RECORDS SUMMARY | 2024-03-04 16:56 | XMS_ITS | Encounter Summary ---
Author Organization [facility] Address [facility] [place] [address] Care Team Providers Care Field Contractor Name Role Phone Donte Padgett MD Primary Care Provider [phone] [phone] Reason for Referral * Consultation (Routine) - Closed Specialty Diagnoses / Procedures Referred By Contac t Referred To Contact Gastroenterology Diagnoses Chronic left lower quadrant pain Neurogenic bowel 31 yo M with spinal cord injury, neurogenic bowel and chronic LLQ pain, food avoidance due to worsening of pain. Extensive GI work-up in the past. Yue Darby MD [facility] HOSPICE AND [place] [address] [facility] [address] [place] [address] Referral ID Status Reason Start Date Expiration Date V isits Requested Visits Authorized [id number] Closed Second Opinion 02/25/2022 02/25/2023 1 1 Encounter Details Date Type Department Care Team (Late st Contact Info) Description 02/25/2022 [place] [address] Yue Darby MD [facility] HOSPICE AND [place]IAT[place] [address] Chronic left lower quadrant pain; Neurogenic bowel Social History Tobacco Use Types Packs/Day Years [...] PM EDT TH Visit (TeleHealth) [place] [address] Yue Darby MD [facility] HOSPICE AND P[place]ATIVE [place] [address] 04/12/2024 11:30 AM EDT [place] [address] Yue Darby MD [facility] HOSPICE AND [place]AT[place] [address] 04/28/2024 8:30 AM EDT TH Visit (TeleHealth) [place] [address] Yue Darby MD [facility] HOSPICE AND [place]AT[place] [address] Scheduled Referrals Name Type Priority Associated Diagnoses Order Schedule Referral to Gastroenterology Outpatient Referral Routine Chronic left lower quadrant pain Neurogenic bowel Ordered: 02/25/2022 documented as of this encounter Visit Diagnoses Diagnosis Chronic left lower quadrant pain Abdominal pain, left lower quadrant Neurogenic bowel documented in this encounter Care Teams Field Contractor Relationship Specialty Start Date End Date Donte Padgett MD [address] [place] [address] [address] [facility] [address] [place] [address] PCP - General Family Medicine 08/24/15 documented as of this encounter
--- OUTSIDE RECORDS SUMMARY | 2024-03-04 16:56 | XMS_ITS | Encounter Summary ---
Author Organization [facility] Address [facility] [place] [address] Care Team Providers Care Music Coordinator Name Role Phone Donte Padgett MD Primary Care Provider [phone] [phone] Encounter Details Date Type Department Care Team (Late st Contact Info) Description 05/23/2022 Orders [place] [address] Yue Darby MD [facility] [address] HOSPICE AND [place] [address] Nausea without vomiting Social History Tobacco Use Types Packs/Day Years [...] PM EDT TH Visit (TeleHealth) [place] [address] Yue Darby MD [facility] HOSPICE AND [place] [address] 04/12/2024 11:30 AM EDT Office [place] [address] Yue Darby MD [facility] HOSPICE AND [place] [address] 04/28/2024 8:30 AM EDT TH Visit (TeleHealth) [place] [address] Yue Darby MD [facility] HOSPICE AND [place] [address] documented as of this encounter Visit Diagnoses Diagnosis Nausea without vomiting documented in this encounter Care Teams Music Coordinator Relationship Specialty Start Date End Date Donte Padgett MD [address] [place] [address] [address] [facility] [address] [place] [address] PCP - General Family Medicine 08/24/15 documented as of this encounter
--- OUTSIDE RECORDS SUMMARY | 2024-03-04 16:56 | XMS_ITS | Encounter Summary ---
Author [facility] [place] [address] Care Team Providers Care Gear Roller Name Role Phone Donte Padgett MD Primary Care Provider [phone] [phone] Reason for Referral * Consultation (Routine) - Closed Specialty Diagnoses / Procedures Referred By Contac t Referred To Contact [facility] Diagnoses Chronic left lower quadrant pain *09/16 New MRI order?* ?Thoracic Radiculopathy/MRI order by Neurology BF 2017 ([facility]) Yue Darby MD [facility] HOSPICE AND PALLIATIVE [place] [address] [facility] [place] [address] Referral ID Status Reason Start Date Expiration Date V isits Requested Visits Authorized [id number] Closed Consult, Test & Treat 08/14/2021 08/14/2022 3 3 Encounter Details Date Type Department Care Team (Late st Contact Info) Description 08/13/2021 [place] [address] Yue Darby MD [facility] HOSPICE AND PALLIATIVE [place] [address] Chronic left lower quadrant pain; Abdominal pain, chronic, left lower quadrant Social [...] PM EDT TH Visit (TeleHealth) [place] [address] Yue Darby MD [facility] HOSPICE AND PALLIATIVE [place] [address] 04/12/2024 11:30 AM EDT [place] [address] Yue Darby MD [facility] [address] HOSPICE AND PALLIATIVE [place] [address] 04/28/2024 8:30 AM EDT TH Visit (TeleHealth) [place] [address] Yue Darby MD [facility] HOSPICE AND PALLIATIVE [place] [address] Scheduled Referrals Name Type Priority Associated Diagnoses Orde r Schedule Referral to [facility] Sp[facility] Center (Internal only) Outpatient Referral Routine Chronic left lower quadrant pain Ordered: 08/14/2021 documented as of this encounter Visit Diagnoses Diagnosis Chronic left lower quadrant pain Abdominal pain, left lower quadrant Abdominal pain, chronic, left lower quadrant Abdominal pain, left lower quadrant documented in this encounter Care Teams Gear Roller Relationship Specialty Start Date End Date Donte Padgett MD [address] [place] [address] PCP - General Family Medicine 08/24/15 documented as of this encounter
--- OUTSIDE RECORDS SUMMARY | 2024-03-04 16:56 | XMS_ITS | Encounter Summary ---
Author Organization [facility] [address] Care Team Providers Care Digital Watch Assembler Name Role Phone Donte Padgett MD Primary Care Provider [phone] [phone] Reason for Referral * Diagnostic Test (Routine) - Closed Specialty Diagnoses / Procedures Referred By Contac t Referred To Contact Radiology Diagnoses Chronic left lower quadrant pain Procedures MRI Thoracic Spine wo Contrast (Generic) Yue Darby MD [facility] DR HOSPICE AND [place] [address] [place] [address] Referral ID Status Reason Start Date Expiration Date V isits Requested Visits Authorized [id number] Closed Specialty Service Requested 09/20/2021 03/23/2023 1 1 Encounter Details Date Type Department Care Team (Late st Contact Info) Description 09/20/2021 [place] [address] Yue Darby MD [facility] HOSPICE AND [place]AT[place] [address] Chronic left lower quadrant pain [...] PM EDT TH Visit (TeleHealth) [place] [address] Yue Darby MD [facility] HOSPICE AND [place]AT[place] [address] 04/12/2024 11:30 AM EDT [place] [address] Yue Darby MD [facility] HOSPICE AND [place]AT[place] [address] 04/28/2024 8:30 AM EDT TH Visit (TeleHealth) [place] [address] Yue Darby MD [facility] HOSPICE AND [place]AT[place] [address] documented as of this encounter Results * MRI Thoracic Spine wo Contrast (Generic) (10/28/2021 5:08 PM EDT) Anatomical Region Laterality Modality T-spine Magnetic Resonan ce Impressions 10/29/2021 12:35 PM EDT Generally somewhat thinned appearance of the cord likely related to upper cervical injury. Degenerative changes at T10-11 with moderate spinal and foraminal stenosis. Thank you for letting us participate in the care of this patient. ??If you are a health care provider and have any questions regarding this report, please contact the number below. ??For patients who have questions please contact the health home care attendant that requested your imaging first. ? 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 COMPARISON: Previous CT of the cervical spine performed on 09/02/2015 FINDINGS: Evaluation of the test consultant view shows previous cervical fusion at the C5, C6 and C7 level.. Marrow signal intensity throughout the thoracic spine [...] to hypertrophy. No paraspinal abnormalities are identified. 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 COMPARISON: Previous CT of the cervical spine performed on 09/02/2015 FINDINGS: Evaluation of the test consultant view shows previous cervical fusion at the C5, C6and C7 level.. Marrow signal intensity throughout the thoracic spine is normal.Vertebral bodies show normal height. Intervertebral disks show normal height andsignal intensity. The thoracic cord appears mildly thinned but without focal signalabnormality. Degenerative changes are noted at the T10-11 level with a broad symmetricdisc bulge indenting the ventral thecal sac narrowing the spinal canal The left facet shows moderate hypertrophy in this narrows the posteriorlateral aspect of the canal. The left intervertebral foramen is narrowed due to hypertrophy. No paraspinal abnormalities are identified. IMPRESSION Generally somewhat thinned appearance of the cord likely related toupper cervical injury. Degenerative changes at T10-11 with moderate spinal and foraminalstenosis. Thank you for letting us participate in the care of this patient. If youare a health care provider and have any questions regarding this report,please contact the number below. For patients who have questions please contactthe health home care attendant that requested your imaging first. Electronically signed by: Ezequiel Landaverde MD, [facility]([phone]), at 10/29/2021 12:35 PM Yue Darby MD IMG MRI ORDERABLES documented in this encounter Visit Diagnoses Diagnosis Chronic left lower quadrant pain Abdominal pain, left lower quadrant Chronic left lower quadrant pain Abdominal pain, left lower quadrant documented in this encounter Care Teams Digital Watch Assembler Relationship Specialty Start Date End Date Donte Padgett MD [address] [place] [address] PCP - General Family Medicine 08/24/15 documented as of this encounter
--- OUTSIDE RECORDS SUMMARY | 2024-03-04 16:56 | XMS_ITS | Encounter Summary ---
Author Organization [facility] Address [facility] [place] [address] Care Team Providers Care Carton Packaging Machine Operator Name Role Phone Donte Padgett MD Primary Care Provider [phone] [phone] Encounter Details Date Type Department Care Team (Latest Contact Info) Description 11/27/2021 2:25 PM EDT - 11/27/2021 3:35 PM EDT Hospital En[place] [phone] Mika East MD [facility] [place] [address] Neuralgia Discharge Disposition: Home Social History Tobacco Use [...] Sign Reading Time Taken Comments Blood Pressure 99/60 11/27/2021 2:46 PM EDT states this is normal Pulse 77 11/27/2021 2:46 PM EDT Temperature - - Respiratory Rate - - Oxygen Saturation 98% 11/27/2021 2:4 6 PM EDT Inhaled Oxygen Concentration - - Weight 99.8 kg (220 lb) 11/27/2021 2:46 PM EDT Height 190.5 cm (6' 3) 11/27/2021 2:46 PM EDT Body Mass Index 27.5 11/27/2021 2:46 PM EDT documented in this encounter Discharge Instructions * Discharge Instructions* Anu Mcdonald - 11/27/2021 2:43 PM EDT Pain Management Center Discharge Instructions: You were seen today by Surgeon(s): Mika East MD The following was performed: Procedure(s) (LRB): INJECTION ANESTHETIC, ILIOINGUINAL, ILIOHYPOGASTRIC (WRVU 1.75) (Left) It is normal that the injection site will be sore for up to 48 hours. [x] You may also experience mild stiffness in the joint near the injection site. You may resume your normal activities: tomorrow. You may shower today. DO NOT tub bathe, use whirlpools, hot tubs or pool therapy for 2 days. RemoveBand-Aid(s) later today/tomorrow. Do not drive until tomorrow. Use caution walking/climbing stairs as you may be unsteady on your feet. You may use your usual medications, including pain medications, as directed, unless otherwise instructed. You may use an ice pack as needed for the first 24 hours, on for 20 minutes then off for 20 minutes. Do not apply heat today. Attempt to empty your bladder 4-6 hours after your procedure. [ ] If you have diabetes, monitor your blood sugars frequently. If your blood sugar increases and is of concern, contact your Primary Care Provider. You received the following medications: Medications Given During Procedure Date/Time Order Dose Route Action 11/27/2021 1512 BUpivacaine (pf) (Marcaine) (2.5 mg/mL) 0.25% injection 6 mL Intramuscular Given 11/27/2021 1512 methylPREDNISolone acetate (DEPO-Medrol) (40 mg/mL) injection 40 mg Intramuscular Given During regular business hours, please phone the Pain Management Center at with any questions or if the following or other troubling symptoms develop: 1) Prolonged dizziness or weakness (more than 1 day). 2) Localized swelling, redness or drainage at the injection site(s). 3) Temperature of 101 degrees that lasts for more than 4 hours. After 5 PM or on weekends, call and ask for Pain Clinic provider on-call. If you are unable to reach the Pain Management Center and have a complication, please call your Primary Care Provider or proceed to your local emergency department. Anu Mcdonald Special instructions Pain Management Center Post -Procedure Pain Log Patient: Aly De La Torre [id number] It is important for you to keep track of your pain after your procedure that took place today. Thisinformation will help your Provider to determine how to help reduce your pain. Today you had a procedure for pain in your left side of abdomen. Your pain level before the procedure in this area was 8 /10. Your pain level immediately after your procedure was 8 /10. Time Pain Score # Comments % pain relief 1 hour 4:30 hrs 2 hours 5:30 hrs 3 hours 6:30 hrs 4 hours 7:30 hrs Please call the nurse in the Pain Management Center a day or two after your procedure and report the information above. She will assess your response to the procedure, and will recommend appropriate follow-up. documented in this encounter Medications at Time of Discharge Medication Sig Dispensed Refills Start Date End Date omeprazole 20 mg Tablet, Delayed Release (E.C.) Take 20 mg by mouth daily as needed. Prn heartburn, takes 2-3 x/week Ibuprofen 200 mg Capsule Take by mouth. 03/14/2022 HYDROcodone-acetaminop hen (Hollywood) 5-325 mg Tablet Take 1 tablet by mouth 4 times daily. Dose increased from 1 tablet 3 times daily 120 tablet 11/11/2021 12/09/[address] (Cymbalta) 30 mg Capsule, Delayed Release(E.C.)Indicatio ns:Abdominal pain, chronic, left lower quadrant Take 1 capsule by mouth daily. Increase to 1 capsule TWICE daily after 1 week. 60 tablet 3 09/12/2021 03/14/2022 dicyclomine (BENTYL) 20 mg TabletIndications:Abdo sree pain, chronic, left lower quadrant Take 1 tablet by mouth 3 times daily. Take before meals. If not eating breakfast, may use 30 min prior to bowel program. 90 tablet 3 08/20/2021 02/13/2022 ferrous sulfate 325 mg (65 mg iron) Tablet Take 1 tablet by mouth daily. 3 08/20/2018 03/14/2022 acetaminophen (TYLENOL) 500 mg Tablet Take 500 mg by mouth 3 times daily as needed for Pain. 03/14/2022 documented as of this encounter H&P Notes * Mika East MD - 11/27/2021 3:35 PM EDT Patient Name: Aly De La Torre Patient Age: 31 y.o. Birthdate: 1990 Admit date: 11/27/2021 Attending Physician: No att. providers found PREPROCEDURE HISTORY AND PHYSICAL Date of Visit: November 29, 2021 Mr. De La Torre presents for left ilioinguinal nerve block. Chief Complaint: Left lower quadrant pain HPI: Subjective Aly De La Torre is a 31 y.o. male who presents today for left ilioinguinal nerve block with a diagnosis of 1. Neuralgia with symptoms of pain. The history is obtained from the patient, and I have reviewed medical records provided by the referring physician and located in the electronic medical record to fill in gaps in the patient's recollection of events, treatments and outcomes. LOCATION: Left lower quadrant 8. PAIN LEVEL AT REST the02/12 PAST MEDICAL HISTORY: No past medical history on file. There are no medical history contraindications to this procedure. PAST SURGICAL HISTORY: Past Surgical History: Procedure Laterality Date ??? PRG UNLISTED DIAGNOSTIC GASTROENTEROLOGY PROCEDURE N/A 12/11/2015 VIDEO CAPSULE ENDOSCOPY performed by Lance Pandya MD at [facility] ENDOSCOPY ??? PRO COLONOSCOPY, DIAGNOSTIC N/A 10/18/2015 COLONOSCOPY, DIAGNOSTIC performed by Seth Yeh MD at [facility] ENDOSCOPY ? ? PRO INJECTION ANES AGENT &/ STEROID ILIOINGUINAL IH NERVES Left 11/27/2021 INJECTION ANESTHETIC, ILIOINGUINAL, ILIOHYPOGASTRIC (WRVU 1.75) performed by Mika East MD [facility] ??? PRO UPPER GI ENDOSCOPY, BIOPSY N/A 10/18/2015 EGD WITH BIOPSY performed by Seth Yeh MD at [facility] ENDOSCOPY There are no past surgical contraindications to this procedure ALLERGIES: Patient has no known allergies. There are no allergic contraindications to this procedure. MEDICATIONS: Medications 11/27/21 1445 Medication Sig Taking? Ibuprofen 200 mg Capsule Take by mouth. Yes HYDROcodone-acetaminophen (Hollywood) 5-325 mg Tablet Take 1 tablet by mouth 4 times daily. Dose increased from 1 tablet 3 times daily Yes acetaminophen (TYLENOL) 500 mg Tablet Take 500 mg by mouth 3 times daily as needed for Pain. Yes DULoxetine DR (Cymbalta) 30 mg Capsule, Delayed Release(E.C.) Take 1 capsule by mouth daily. Increase to 1 capsule TWICE daily after 1 week. Patient taking differently: Take 30 mg by mouth 2 times daily. dicyclomine (BENTYL) 20 mg Tablet Take 1 tablet by mouth 3 times daily. Take before meals. If not eating breakfast, may use 30 min prior to bowel program. ferrous sulfate 325 mg (65 mg iron) Tablet Take 1 tablet by mouth daily. omeprazole 20 mg Tablet, Delayed Release (E.C.) Take 20 mg by mouth daily. There are no medication contraindications to this procedure. FAMILY HISTORY: No family history on file. SOCIAL HISTORY: Social History Socioeconomic History ??? Marital status: Single Spouse name: Not on file ??? Number of children: Not on file ??? Years of education: Not on file ??? Highest education level: Not on file Occupational History ??? Not on file Tobacco Use ??? Smoking status: Current Every Day Smoker Packs/day: 0.50 Types: Cigarettes ??? Smokeless tobacco: Never Used Vaping Use ??? Vaping Use: Never used Substance and Sexual Activity ??? Alcohol use: No ??? Drug use: Yes Types: Marijuana Comment: Medical ??? Sexual activity: Not on file Other Topics Concern ??? Not on file Social History Narrative ??? Not on file Social Determinants of Health Financial Resource Strain: Not on file Food Insecurity: Not on file Transportation Needs: Not on file Physical Activity: Not on file Housing Stability: Not on file There are no social history contraindications to this procedure. ROS: Review of Systems Constitutional: Negative for fever, chills, or recent infection. Respiratory: Negative for shortness of breath. Cardiovascular: Negative for chest pain. Musculoskeletal: Positive for PAIN. Psychiatric/Behavioral: Negative for agitation and behavioral problems. PHYSICAL EXAM: BP 99/60 (Patient Position: Sitting) Comment: states this is normal Pulse 77 Ht 190.5 cm (6' 3) Wt 99.8 kg (220 lb) SpO2 98% BMI 27.50 kg/m?? Physical Exam Constitutional: He appears well-developed and well-nourished. No distress. Cardiovascular: Normal heart rate. Pulmonary/Chest: Effort normal and breath sounds normal. Skin: He is not diaphoretic. This is no rash, apparent infection, or other abnormality to the area of the proposed injection. There are no physical examination findings which would preclude this procedure. ASSESSMENT: 1. Neuralgia PLAN: Proceed with procedure as planned. Thank you for the opportunity to participate in Aly De La Torre's care. Please feel free to contactme with any questions. Sincerely, Mika East MD documented in this encounter Miscellaneous Notes * Op Note - Mika East MD - 11/27/2021 3:13 PM EDT Pain Management Operative Note Patient Name: Aly De La Torre : [id number] MR#: [id number] Case Date: 11/27/2021 Surgeon: Surgeon(s) and Role: * Mika East MD - Primary Present on Admission: ??? Ilioinguinal neuralgia of left side Postoperative diagnosis: Neuralgia Procedure(s) (LRB): INJECTION ANESTHETIC, ILIOINGUINAL, ILIOHYPOGASTRIC (WRVU 1.75) (Left) Ultrasound Guided left Ilioinguinal nerve Injection Date of Service: 10/30/2021 Patient: Aly De La Torre Provider: Mika East MD Pre-Procedural Evaluation: Aly De La Torre has been referred to the Pain Management Center for an Ultrasound Guided left ilioinguinal nerve injection for a chief complaint of pain. Pre-procedure Pain Score: 8/10 Mr. De La Torre was interviewed and the medical record reviewed. There were no medical, pharmacologic, radiographic or other structural contraindications to performing an ultrasound guided injection. Risks and expected side effects as well as potential benefit of the procedure were reviewed with Aly De La Torre. The printed consent form was signed and witnessed. Standard time-out procedure was performed and documented. The use of direct ultrasound visualization of the needle (rather than a non- guided injection) was required to increase patient safety by excluding inadvertent intramuscular, intratendinous, or intraneural needle placement and minimizing bleeding by avoiding osteochondral or vascular injury from theneedle. Additionally, the increased accuracy of placement may increase clinical effectiveness and will allow higher diagnostic specificity when evaluating effectiveness of this injection. Procedure Description: The patient was placed in the supine position and automated blood pressure cuff and pulse oximeter applied for monitoring during the procedure and recorded in the medical record. Pre-injection ultrasound scanning of the area of interest was performed using High Frequency Cdkata65-2 MHz transducer, identifying relevant anatomy, landmarks, and neurovascular structures allowingfor optimal needle path. The site was then prepared in the usual sterile fashion, using thorough Chl orhexadine preparation of the skin and sterile draping. The same ultrasound transducer was then passed into the sterile field using sterile probe cover and sterile ultrasound gel. The injection target was again visualized. Skin and subcutaneous tissues were anesthetized with 1 mL of 1% Lidocaine. A 22 guage needle x 4 inch needle was placed under live ultrasound guidance, using an in-plane approach, to the target area.After visualization of the needle tip at the target area, a mixture of 6 mL 0.5% Bupivacaine and 1 mL Depo-Medrol 40 mg , totalinG 7 mL of injectate was delivered after negative aspiration for blood. Ultrasound images were captured and stored for documentation purposes. Post-procedure Pain Score: 8/10 Mr. De La Torre'andrea vital signs were stable throughout the procedure and were as recorded in the docflowsheet by the nursing staff. Follow up plans and appointments were discussed with the patient Post procedure instruction was given as documented in nursing documentation and having met discharge criteria, they were discharged from the Pain Management Center. COMMENTS: Would consider intrathecal baclofen trial as this most likely is a central origin. He does have spasm as a main complaint . CC: MD Dayron Mitchell documented in this encounter Plan of Treatment Upcoming Encounters Date Type Department Care Team (Late st Contact Info) Description 03/17/2024 2:00 PM EDT TH Visit (TeleHealth) [place] [address] Yue Darby MD [facility] AND [place] [address] 04/12/2024 11:30 AM EDT Office [place] [phone] Yue Darby MD [facility]OS[facility] AND [place] [address] 04/28/2024 8:30 AM EDT TH Visit (TeleHealth) [place] [phone] Yue Darby MD [facility] AND [place] [address] documented as of this encounter Procedures Procedure Name Priority Date/Time Associated Diagnosis Comments Injection Anes Agent &/ Steroid Ilioinguinal IH Nerves (29280) 11/27/2021 2:58 PM EDT Neuralgia INJECTION ANESTHETIC, ILIOINGUINAL, ILIOHYPOGASTRIC Routine 11/27/2021 2:40 PM EDT Neuralgia documented in this encounter Visit Diagnoses Diagnosis Ilioinguinal neuralgia of left side- Primary Neuralgia Neuralgia, neuritis, and radiculitis, unspecified documented in this encounter Active and Recently Administered Medications Times are shown in EDT. PRN Medication Order 11/25/2021 11/26/2021 11/27/2021 BUpivacaine (pf) (Marcaine) (2.5 mg/mL) 0.25% injection (CANCELED) ONCE PRN, Starting on Thu11/27/21 at 1512, Until Thu11/27/21 at 1735, Intra-Operative (Intra-Procedure), Routine 1511 (Given - Provid er: Mika East MD) methylPREDNISolone acetate (DEPO-Medrol) (40 mg/mL) injection (CANCELED) ONCE PRN, Starting on Thu11/27/21 at 1512, Until Thu11/27/21 at 1735, Intra-Operative (Intra-Procedure), Routine 1511 (Given - Provid er: Mika East MD) documented in this encounter Care Teams Carton Packaging Machine Operator Relationship Specialty Start Date End Date Donte Padgett MD [address] [place] [address] PCP - General Family Medicine 08/24/15 documented as of this encounter
--- OUTSIDE RECORDS SUMMARY | 2024-03-04 16:56 | XMS_ITS | Encounter Summary ---
[place] [address] Care Team Providers Care Mechanic Helper Name Role Phone Donte Padgett MD Primary Care Provider [phone] Encounter Details Date Type Department Care Team (Late st Contact Info) Description 04/24/2022 Telephone [place] [phone] Sejal Vanessa Social History Tobacco Use Types Packs/Day Years [...] encounter Miscellaneous Notes * Telephone Encounter - Chelsey Silveira - 04/30/2022 2:54 PM EDT Pt called to symone MRI- pt on the radiology list * Telephone Encounter - Sejal Vanessa - 04/24/2022 12:48 PM EDT LVM Pt needs MRI scheuduled and CBT behavioral health class scheduled documented in this encounter Plan of Treatment Upcoming Encounters Date Type Department Care Team (Late st Contact Info) Description 03/17/2024 2:00 PM EDT TH Visit (TeleHealth) [place] [address] Yue Darby MD [facility] HOSPICE AND [place] [address] 04/12/2024 11:30 AM EDT Office Visit Neurology at [place] [phone] Yue Darby MD [facility] HOSP[facility] AND [place] [address] 04/28/2024 8:30 AM EDT TH Visit (TeleHealth) Neurology at [place] [phone] Yue Darby MD [facility] AND [place] [address] documented as of this encounter Visit Diagnoses Not on filedocumented in this encounter Care Teams Mechanic Helper Relationship Specialty Start Date End Date Donte Padgett MD [address] [place] [address] PCP - General Family Medicine 08/24/15 documented as of this encounter
--- OUTSIDE RECORDS SUMMARY | 2024-03-04 16:56 | XMS_ITS | Encounter Summary ---
Author Organization [facility] Address [facility] [place] [address] Care Team Providers Care Tobacco Sample Puller Name Role Phone Donte Padgett MD Primary Care Provider [phone] Encounter Details Date Type Department Care Team (Late st Contact Info) Description 09/10/2021 [place] [phone] [facility] HOSPICE AND [place] [address] Social History Tobacco Use Types Packs/Day Years [...] PM EDT TH Visit (TeleHealth) [place] [phone] [facility]PICE AND [place] [address] 04/12/2024 11:30 AM EDT [place] [phone] [facility]PICE AND [place] [address] 04/28/2024 8:30 AM EDT TH Visit (TeleHealth) [place] [address] [facility] HOSPICE AND [place] [address] documented as of this encounter Visit Diagnoses Not on filedocumented in this encounter Care Teams Tobacco Sample Puller Relationship Specialty Start Date End Date Donte Padgett MD [address] [place] [address] [address] [facility] [address] [place] [address] PCP - General Family Medicine 08/24/15 documented as of this encounter
--- OUTSIDE RECORDS SUMMARY | 2024-03-04 16:56 | XMS_ITS | Encounter Summary ---
Author Organization [facility] Address [facility] [place] [address] Care Team Providers Care Refractive Surgeon Name Role Phone Donte Padgett MD Primary Care Provider [phone] [phone] Encounter Details Date Type Department Care Team (Late st Contact Info) Description 08/27/2021 9:30 AM EST TH Visit (TeleHealth) [place] [address] Yue Darby MD [facility] HOSPICE AND [place] [address] Chronic left lower quadrant pain Social History [...] Progress Notes * Yue Darby MD - 08/27/2021 9:30 AM EST Brief Physical Medicine Telephone Encounter Spoke to patient briefly over the phone. He had a scheduled telehealth appointment with me today but forgot about the visit. We made a mutual decision to not have the visit today as he has no significant updates since we last spoke. LLQ pain is still there on a daily basis. He is missing the occasional day of work due to the pain. He's increased the dicyclomine to 20 mg three times daily for the last few days and has not noticed any improvement. He denies having any changes to his bowel or bladder habits or side effects from the medication. I instructed him to continue the dicyclomine for now, at least for the next week. It is okay to discontinue if he is not noting any improvement by the end of the week. Plan to follow-up on referral to the [facility] and MRI. He has not heard about scheduling either of these yet. He will follow-up with me once the above visits are completed. Yue Darby MD Physical Medicine & Rehabilitation 08/27/2021 9:51 AM documented in this encounter Plan of Treatment Upcoming Encounters Date Type Department Care Team (Late st Contact Info) Description 03/17/2024 2:00 PM EDT TH Visit (TeleHealth) [place] [address] Yue Darby MD [facility] HOSPICE AND [place] [address] 04/12/2024 11:30 AM EDT [place] [address] Yue Darby MD [facility] HOSPICE [place] [address] 04/28/2024 8:30 AM EDT TH Visit (TeleHealth) [place] [address] Yue Darby MD [facility] HOSPICE [place] [address] documented as of this encounter Visit Diagnoses Diagnosis Chronic left lower quadrant pain Abdominal pain, left lower quadrant documented in this encounter Care Teams Refractive Surgeon Relationship Specialty Start Date End Date Donte Padgett MD [address] [place] [address] [address] [place] [address] PCP - General Family Medicine 08/24/15 documented as of this encounter
--- OUTSIDE RECORDS SUMMARY | 2024-03-04 16:56 | XMS_ITS | Encounter Summary ---
Author Organization [facility] Address [facility] [place] [address] Care Team Providers Care Group Fitness Department Head Name Role Phone Donte Padgett MD Primary Care Provider [phone] Reason for Visit * Reason Onset Date Comments Medication Refill 05/13/2022 Encounter Details Date Type Department Care Team (Late st Contact Info) Description 05/13/2022 [place] [phone] Yue Darby MD [facility] [address] HOSPICE [place] [address] Chronic left lower quadrant pain Social History [...] PM EDT TH Visit (TeleHealth) [place] [phone] Yue Darby MD [facility] [address] HOSPICE [place] [address] 04/12/2024 11:30 AM EDT [place] [address] Yue Darby MD [facility] HOSPICE [place] [address] 04/28/2024 8:30 AM EDT TH Visit (TeleHealth) [place] [address] Yue Darby MD [facility] HOSPICE [place] [address] documented as of this encounter Visit Diagnoses Diagnosis Chronic left lower quadrant pain Abdominal pain, left lower quadrant documented in this encounter Care Teams Group Fitness Department Head Relationship Specialty Start Date End Date Donte Padgett MD [address] [place] [address] PCP - General Family Medicine 08/24/15 documented as of this encounter
--- OUTSIDE RECORDS SUMMARY | 2024-03-04 16:56 | XMS_ITS | Encounter Summary ---
Author Organization Formerly [facility] [place] [address] Care Team Providers Care Napkin Machine Operator Name Role Phone Donte Padgett MD Primary Care Provider [phone] [phone] Encounter Details Date Type Department Care Team (Late st Contact Info) Description 05/14/2022 Telephone [place] [phone] Yue Darby MD [facility] HOSPICE AND P[place]IATIVE [place] [address] Social History Tobacco Use Types Packs/Day Years [...] Telephone Encounter - Rupinder Jackson RN - 05/14/2022 3:58 PM EST FMLA paperwork received and placed in Dr Darby's cubby documented in this encounter Plan of Treatment Upcoming Encounters Date Type Department Care Team (Late st Contact Info) Description 03/17/2024 2:00 PM EDT TH Visit (TeleHealth) [place] [address] Yue Darby MD [facility] HOSPICE AND P[place]IATIVE [place] [address] 04/12/2024 11:30 AM EDT Office [place] [phone] Yue Darby MD [facility] HOSPICE AND P[place]IATIVE [place] [address] 04/28/2024 8:30 AM EDT TH Visit (TeleHealth) [place] [address] Yue Darby MD [facility] HOSPICE AND P[place]IATIVE [place] [address] documented as of this encounter Visit Diagnoses Not on filedocumented in this encounter Care Teams Napkin Machine Operator Relationship Specialty Start Date End Date Donte Padgett MD [address] [place] [address] PCP - General Family Medicine 08/24/15 documented as of this encounter
--- OUTSIDE RECORDS SUMMARY | 2024-03-04 16:56 | XMS_ITS | Encounter Summary ---
Author Organization [facility] Address [facility] [place] [address] Care Team Providers Care Heel Seat Laster Name Role Phone Donte Padgett MD Primary Care Provider [phone] [phone] Encounter Details Date Type Department Care Team (Late st Contact Info) Description 06/05/2022 Telephone [place] [address] Donna Bowser, PhD [facility] [place] [address] Social History Tobacco Use Types Packs/Day Years [...] PM EDT TH Visit (TeleHealth) [place] [address] Yue Darby MD [facility] HOSPICE [place] [address] 04/12/2024 11:30 AM EDT [place] [address] Yue Darby MD [facility] HOSPICE [place] [address] 04/28/2024 8:30 AM EDT TH Visit (TeleHealth) [place] [address] Yue Darby MD [facility] HOSPICE [place] [address] documented as of this encounter Visit Diagnoses Not on filedocumented in this encounter Care Teams Heel Seat Laster Relationship Specialty Start Date End Date Donte Padgett MD [address] [place] [address] [address] PCP - General Family Medicine 08/24/15 documented as of this encounter
--- OUTSIDE RECORDS SUMMARY | 2024-03-04 16:56 | XMS_ITS | Encounter Summary ---
Author Organization [facility] Address [facility] [place] [address] Care Team Providers Care Validation Specialist Name Role Phone Donte Padgett MD Primary Care Provider [phone] Encounter Details Date Type Department Care Team (Late st Contact Info) Description 11/27/2021 3:00 PM EDT Ancillary [place] [address] Mika Esat MD [facility] [place] [address] Social History Tobacco Use Types Packs/Day Years [...] PM EDT TH Visit (TeleHealth) [place] [address] Yue Darby MD [facility] HOSPICE AND PALLIATIVE MEDICINE [place], [place] [id number] 04/12/2024 11:30 AM EDT Office [place] [address] Yue Darby MD [facility] HOSPICE [place] [address] 04/28/2024 8:30 AM EDT TH Visit (TeleHealth) Neurology at [facility] [place] [place] [address] Yue Darby MD [facility] HOSPICE [place] [address] documented as of this encounter Procedures Procedure Name Priority Date/Time Associated Diagnosis Comments FILM LIBRARY STORAGE ONLY PAIN CLINIC ULTRASOUND Routine 11/27/2021 4:13 PM EDT documented in this encounter Results * Film Library- Storage Only Pain Clinic Ultrasound (11/27/2021 4:13 PM EDT) Narrative [facility] - 11/27/2021 4:13 PM EDT See PACS for result report. Mika East MD IMG FILM LIBRARY ORD ERABLES [place], [place] documented in this encounter Visit Diagnoses Not on filedocumented in this encounter Care Teams Validation Specialist Relationship Specialty Start Date End Date Donte Padgett MD [address] [place] [address] PCP - General Family Medicine 08/24/15 documented as of this encounter
--- OUTSIDE RECORDS SUMMARY | 2024-03-04 16:56 | XMS_ITS | Encounter Summary ---
Author Organization [facility] [place] [address] Care Team Providers Care Industrial Hire Sales Assistant Name Role Phone Donte Padgett MD Primary Care Provider [phone] Encounter Details Date Type Department Care Team (Late st Contact Info) Description 04/24/2022 [place] [phone] Yeu Darby MD [facility] HOSPICE AND [place] [address] Abdominal pain, chronic, left lower quadrant; Depression, unspecified depression type Social History Tobacco [...] PM EDT TH Visit (TeleHealth) [place] [phone] Yue Darby MD [facility] HOSPICE AND [place] [address] 04/12/2024 11:30 AM EDT [place] [address] Yue Darby MD [facility] DR HOSPICE AND [place] [address] 04/28/2024 8:30 AM EDT TH Visit (TeleHealth) [place] [address] Yue Darby MD [facility] DR HOSPICE AND [place]AT[place] [address] documented as of this encounter Visit Diagnoses Diagnosis Abdominal pain, chronic, left lower quadrant Abdominal pain, left lower quadrant Depression, unspecified depression type documented in this encounter Care Teams Industrial Hire Sales Assistant Relationship Specialty Start Date End Date Donte Padgett MD [address] [place] [address] PCP - General Family Medicine 08/24/15 documented as of this encounter
--- OUTSIDE RECORDS SUMMARY | 2024-03-04 16:56 | XMS_ITS | Encounter Summary ---
Author Organization [facility] Address [facility] [place] [address] Care Team Providers Care Taxicab Dispatcher Name Role Phone Donte Padgett MD Primary Care Provider [phone] [phone] Encounter Details Date Type Department Care Team (Late st Contact Info) Description 09/13/2021 Telephone [place] [phone] Yue Darby MD [facility] HOSPICE AND [place] [address] Social History Tobacco Use Types Packs/Day Years [...] PM EDT TH Visit (TeleHealth) [place] [address] Yue Darby MD [facility] HOSPICE AND [place] [address] 04/12/2024 11:30 AM EDT Office [place] [address] Yue Darby MD [facility] HOSPICE AND [place] [address] 04/28/2024 8:30 AM EDT TH Visit (TeleHealth) [place] [address] Yue Darby MD [facility] HOSPICE AND [place] [address] documented as of this encounter Visit Diagnoses Not on filedocumented in this encounter Care Teams Taxicab Dispatcher Relationship Specialty Start Date End Date Donte Padgett MD [address] [place] [address] [address] [facility] [place] [address] PCP - General Family Medicine 08/24/15 documented as of this encounter
--- OUTSIDE RECORDS SUMMARY | 2024-03-04 16:56 | XMS_ITS | Encounter Summary ---
Author Organization [facility] [place] [address] Care Team Providers Care Gas Station Clerk Name Role Phone Donte Padgett MD Primary Care Provider [phone] [phone] Reason for Referral * Consultation (Routine) - Closed Specialty Diagnoses / Procedures Referred By Contac t Referred To Contact Urology Diagnoses Neurogenic bladder 03/10/22 - NEUROGENIC BLADDER Yue Darby MD [facility] HOSPICE AND [place] [address] [facility] [place] [address] Referral ID Status Reason Start Date Expiration Date V isits Requested Visits Authorized [id number] Closed Consult, Test & Treat 02/13/2022 02/13/2023 1 1 Encounter Details Date Type Department Care Team (Late st Contact Info) Description 02/11/2022 11:30 AM EDT TH Visit (TeleHealth) [place] [address] Yue Darby MD [facility] HOSPICE AND [place] [address] Spasticity; Chronic left lower quadrant pain; Neurogenic bowel; Neurogenic bladder Social History Tobacco Use Types Packs/Day Years [...] * Patient Instructions* Yue Darby MD - 02/11/2022 11:30 AM EDT Start taking baclofen 10 mg nightly. If it doesn't make you too drowsy then it is okay to start taking three times daily. Trial dulcolax suppositories. You may find that its helpful to use these about 6 hours after you take your Miralax. I will discuss adding a long-acting pain medication (mixed opioid agonist- antagonist) with Dr. Fuentes. The radiology department should call you about scheduling CT abdomen/pelvis. If you don't hear fromthem by the end of the week please let us know. I will discuss with my GI colleague whether seeing another GI specialist makes sense. documented in this encounter Progress Notes * Yue Darby MD - 02/11/2022 11:30 AM EDT Rehabilitation Medicine Follow-up Note Referring Provider: Donte Padgett Reason for Referral: Dr. Cesar Fuentes Primary Care Provider: Donte Padgett MD Patient ID: Aly De La Torre is a 31 y.o. right-handed male with history of C6 sensory incomplete spinal cord injury, resulting tetraplegia, neurogenic bowel and neurogenic bladder with five-year history of left lower quadrant pain of unclear etiology. History provided by: patient Due to the pandemic, a video visit was made in lieu of an in-person office visit for this appointment. Patient verbally consents to this video visit and understands that this visit may be billed, similar to a clinic office visit. Subjective Interval History: Seen by Dr. East on 11/27/21, underwent LEFT ilioinguinal block with no improvement in symptoms. Continues to have daily LLQ pain. Unable to eat any meals during the day because oral intake worsenspain (confirms that is staying hydrated). Also has difficulty spending time upright in his wheelchair. Notes that spasms are worst first thing in the morning and when transfers but are otherwise tolerable during the day. Took baclofen orally following initial injury but is not currently on an antispasmodic, felt that it wasn't needed anymore so stopped taking it several years ago. 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 Is feeling depressed. Uses hydrocodone-APAP 5-325 mg four times daily as prescribed by Dr. Fuentes. Does feel that this is effective in improving symptoms but effect wears off prior to next dose being due. Denies having issues with constipation; continues daily bowel regimen, uses Miralax and dig stim daily. Stools are soft and feels as though he is able to fully evacuate bowels. Functional Status as of 02/13/22 Kev for mobility in manual WC, ADLs, iADLs. Drives. Past Medical History: No past medical history on file. Past Surgical History: Past Surgical History: Procedure Laterality Date ??? PRG UNLISTED DIAGNOSTIC GASTROENTEROLOGY PROCEDURE N/A 12/11/2015 VIDEO CAPSULE ENDOSCOPY performed by Lance Pandya MD at [facility] ??? PRO COLONOSCOPY, DIAGNOSTIC N/A 10/18/2015 COLONOSCOPY, DIAGNOSTIC performed by Seth Yeh MD at [facility] ? ? PRO INJECTION ANES AGENT &/ STEROID ILIOINGUINAL IH NERVES Left 11/27/2021 INJECTION ANESTHETIC, ILIOINGUINAL, ILIOHYPOGASTRIC (WRVU 1.75) performed by Mika East MD [facility] ??? PRO UPPER GI ENDOSCOPY, BIOPSY N/A 10/18/2015 EGD WITH BIOPSY performed by Seth Yeh MD at [facility] Medications: Current Outpatient Medications on File Prior to Visit Medication Sig Dispense Refill ??? Ibuprofen 200 mg Capsule Take by mouth. ??? DULoxetine DR (Cymbalta) 30 mg Capsule, Delayed Release(E.C.) Take 1 capsule by mouth daily. Increase to 1 capsule TWICE daily after 1 week. (Patient taking differently: Take 30 mg by mouth 2 times daily.) 60 tablet 3 ??? [DISCONTINUED] dicyclomine (BENTYL) 20 mg Tablet Take 1 tablet by mouth 3 times daily. Take before meals. If not eating breakfast, may use 30 min prior to bowel program. 90 tablet 3 ??? ferrous sulfate 325 mg (65 mg iron) Tablet Take 1 tablet by mouth daily. 3 ??? acetaminophen (TYLENOL) 500 mg Tablet Take 500 mg by mouth 3 times daily as needed for Pain. ??? omeprazole 20 mg Tablet, Delayed Release (E.C.) Take 20 mg by mouth daily. No current facility-administered medications on file prior to visit. Allergies: No Known Allergies ROS: Constitutional: No fever/chills GI: No nausea, vomiting, constipation, diarrhea : Denies difficulty straight cathing (empties bladder q4-6 hrs, does have cues that his bladder is full) Psych: +Feeling depressed and anxious (due to pain), +Restlessness, fidgets when pain is bad Neuro: Stable tetraplegia Objective There were no vitals taken for this visit. Exam was limited due to this visit being conducted via telehealth. Physical Exam: Gen: seated in manual WC, frequently repositions himself, appears uncomfortable as visit progresses HEENT: normocephalic, mucous membranes moist, sclera anicteric, pupils equal Resp: breathing comfortably on room air, no use of accessory muscles Neuro: awake, alert, face symmetric, speech fluet Psych: pleasant, conversant, not overtly anxious Data Review Labs: None new; Hgb 9.6, MCV 65 Imaging: The below studies were personally reviewed and results were discussed with patient during today's encounter. MRI thoracic spine 10/28/2021: FINDINGS: Evaluation of the crate tier view shows previous cervical fusion at the [...] tofollow-up in the pain clinic. Assessment/Plan Assessment: 31 y.o. 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 I continue to recommend he establish care with a Urologist for routine monitoring, including annual cystoscopy. At this point he's had an extensive work-up for longstanding left lower quadrant pain, considering potential GI and musculoskeletal etiologies, as well as genitourinary causes. This pain is significantly impacting his quality of life and function. There has been no improvement with Botox injectionsto the psoas nor the recent ilioinguinal nerve injection. The temporal relationship of his pain with any oral intake and bowel evacuation remains suspicious for GI origin, yet GI work-up has been unrevealing and he has had no improvement with a trial of dicyclomine for bowel spasms. While the focalnature and overall picture is not consistent with typical SCI-related spasticity, we can trial oralbaclofen to see if his symptoms improve (he has tolerated this medication well in the past). I would do this before considering an ITB pump as was suggested by Dr. East. His pain remains poorly controlled. He has maintained excellent compliance and has no evidence of opioid misuse. I have discussed with Dr. Fuentes and have agreed to take over his opioid prescribing.I have a low threshold to consider a long-acting opioid at this point. Given his low daily oral morphine equivalents (<30 mg OME per day), a trial of Butrans patch would be reasonable. He would con tinue to use the hydrocodone for breakthrough pain until we find an adequate dose with the patch. His chronic opioid use on top of his neurogenic bowel certainly place him at risk for slow transit constipation and we have discussed the likelihood of him needing to increase his bowel regimen with any changes in his opioid dosing. Recommendations: #SCI-related spasticity -Start baclofen 10 mg nightly; up-titrate to three times daily as tolerated #Left lower quadrant pain #Risk of opioid-induced constipation #Neurogenic bowel -STOP dicyclomine (Bentyl) (ineffective) -Continue daily Miralax and dig stim; will also trial dulcolax suppositories to see aid in evacuation -Abdominal/pelvic CT to evaluate stool burden as well as look for potential intra-abdominal sourcesfor pain external to GI tract -Discussed trial of Butrans (buprenorphine) TD patch with patient after it is clear that he is tolerating the resumption of baclofen; given MEDD < 30, would start with 5 mcg/hr TD patch q7days -[place] opioid prescribing guidelines: -PDMP reviewed before each visit -Opioid treatment agreement signed -Monthly visits -Naloxone prescribed -SOAPP-R </= 9 -COMM each visit -Annual random UDS #Neurogenic bladder -Referral to [facility] Yue Darby MD Physical Medicine & Rehabilitation Department of Neurology Follow-up: 1 month (telehealth okay) This was a 30 minute visit spent in counseling the patient and in reviewing the above imaging and diagnostic studies. documented in this encounter Plan of Treatment Upcoming Encounters Date Type Department Care Team (Late st Contact Info) Description 03/17/2024 2:00 PM EDT TH Visit (TeleHealth) [place] [address] Yue Darby MD [facility] [address] HOSPICE AND [place] [address] 04/12/2024 11:30 AM EDT Office [place] [address] Yue Darby MD [facility] DR HOSPICE [place] [address] 04/28/2024 8:30 AM EDT TH Visit (TeleHealth) [place] [address] Yue Darby MD [facility] DR HOSPICE [place] [address] Scheduled Referrals Name Type Priority Associated Diagnoses Orde r Schedule Referral to Urology Outpatient Referral Routine Neurogenic bladder Ordered: 02/13/2022 documented as of this encounter Visit Diagnoses Diagnosis Spasticity Abnormal involuntary movements Chronic left lower quadrant pain Abdominal pain, left lower quadrant Neurogenic bowel Neurogenic bladder Neurogenic bladder, NOS documented in this encounter Care Teams Gas Station Clerk Relationship Specialty Start Date End Date Donte Padgett MD [address] [place] [address] PCP - General Family Medicine 08/24/15 documented as of this encounter
--- OUTSIDE RECORDS SUMMARY | 2024-03-04 16:56 | XMS_ITS | Encounter Summary ---
Author Organization [facility] Address [facility] [place] [address] Care Team Providers Care Corporate Meeting Planner Name Role Phone Donte Padgett MD Primary Care Provider [phone] [phone] Reason for Visit * Reason Comments Pain Management New patient visit * Consultation (Routine) - Closed Specialty Diagnoses / Procedures Referred By Contac t Referred To Contact [facility] Diagnoses Chronic left lower quadrant pain *09/16 New MRI order?* ?Thoracic Radiculopathy/MRI order by Neurology BF 2017 ([facility]) Yue Darby MD [facility] HOSPICE AND [place] [address] [facility] [place] [address] Referral ID Status Reason Start Date Expiration Date V isits Requested Visits Authorized [id number] Closed Consult, Test & Treat 08/14/2021 08/14/2022 3 3 Encounter Details Date Type Department Care Team (Late st Contact Info) Description 10/30/2021 11:00 AM EDT Office Visit [place] [address] Mika East MD [facility] [place] [address] Neuralgia (Primary Dx) Social History Tobacco Use Types [...] Sign Reading Time Taken Comments Blood Pressure 116/69 10/30/2021 11:07 AM EDT Pulse 71 10/30/2021 11:07 AM EDT Temperature - - Respiratory Rate - - Oxygen Saturation 98% 10/30/2021 11:07 AM EDT Inhaled Oxygen Concentration - - Weight 99.8 kg (220 lb) 10/30/2021 11:07 AM EDT Height - - Body Mass Index 27.5 05/28/2021 2:08 PM EST documented in this encounter Progress Notes * Mika East MD - 10/30/2021 11:00 AM EDT [facility] [place] [address] Phone: PAIN MANAGEMENT FOLLOW UP DATE OF VISIT 10/30/2021 Patient Aly De La Torre 1990 REFERRING PROVIDER Yue Darby MD [facility] [place] [address] PRIMARY CARE PROVIDER Donte Padgett MD CHIEF COMPLAINT: Left lower quadrant pain HPI Aly De La Torre is a 31 y.o. right-handed??male??with history of C6??sensory??incomplete spinal cord injury, resulting tetraplegia, neurogenic bowel and neurogenic bladder with five-year history of left lower quadrant pain of unclear etiology. Interval history: It was thought that this might be a psoas muscle issue and he had a CT-guided psoas muscle injection without any relief of his pain. He is recently seen Dr. Darby and an MRI of thoracic spine was ordered. ADVERSE DRUG REACTIONS Allergies as of 10/30/2021 ??? (No Known Allergies) MEDICATIONS Medications 10/29/21 0775 Medication Sig Taking? HYDROcodone-acetaminophen (Morral) 5-325 mg Tablet Take 1 tablet by mouth 4 times daily. Dose increased from 1 tablet 3 times daily Yes DULoxetine DR (Cymbalta) 30 mg Capsule, Delayed Release(E.C.) Take 1 capsule by mouth daily. Increase to 1 capsule TWICE daily after 1 week. Patient taking differently: Take 30 mg by mouth 2 times daily. Yes dicyclomine (BENTYL) 20 mg Tablet Take 1 tablet by mouth 3 times daily. Take before meals. If not eating breakfast, may use 30 min prior to bowel program. Yes ferrous sulfate 325 mg (65 mg iron) Tablet Take 1 tablet by mouth daily. Yes acetaminophen (TYLENOL) 500 mg Tablet Take 500 mg by mouth 3 times daily as needed for Pain. Yes omeprazole 20 mg Tablet, Delayed Release (E.C.) Take 20 mg by mouth daily. Yes PHYSICAL EXAMINATION Patient Vitals for the past 24 hrs: Pulse BP SpO2 10/30/21 1107 71 116/69 98 % Body mass index is 27.5 kg/m??. BP 116/69 Pulse 71 Wt 99.8 kg (220 lb) No flowsheet data found. Patient makes good eye contact communicates easily. He is in a wheelchair. He has complete tetraplegia Imaging: MRI thoracic spine 10/28/2021- IMPRESSION Generally somewhat thinned appearance of the cord likely related to upper cervical injury. Degenerative changes at T10-11 with moderate spinal and foraminal stenosis. Impression: Left lower quadrant pain. Etiology unclear clear. Possibly related to the foraminal stenosis on the left at T10-11 though does not appear to be tight. Possibly a more peripheral neuralgia/ilioinguinal. Recommendations: #1 Medications: None at this time. I did caution him about using opioids chronically as not a greatoption. #2 Procedures: Going to schedule him for a left ilioinguinal nerve block or possibly tap block depending on what it looks like under ultrasound examination day of procedure. If that works but does not last then he might be a candidate for peripheral nerve stimulator. #3 Imaging: None at this time #4 Referrals: None at this time #5 Behavioral Medicine: None at this time #6 Physical Medicine: None at this time #7 Education: I have given him information about peripheral nerve stimulators. Would consider either a stim alesia or a Sprint Alysmitha De La Torre had the opportunity to ask questions and indicated that all questions were answeredto their satisfaction. Procedure: Ilioinguinal nerve Laterality: Left Levels: N/A Pertinent Medical History - h/o Thrombocytopenia/bleeding tendency/platelet dysfunction: no - h/o Liver disease/abnormal liver function: no - h/o Chronic kidney disease (CKD)/abnormal kidney function: no - Patient on dialysis? no XAVIER Risk Stratification - Low Is patient taking an anticoagulant? No Is patient taking any NSAIDs/Nutritional Supplements? Yes, patient does not need to hold Is patient taking Aspirin? No Is patient taking Antibiotics? Yes - Please schedule 14 days after date of final dose of antibiotics Has patient been on greater than 40mg of steroid 14 days or longer or has patient had a steroid injection within the last two weeks? No Does patient have allergies to contrast/local anesthetic/steroid? No Labs? N/A Imaging? In Chart Does patient need IV? no Does patient need sedation? no Does patient need NPO guidelines? no Special Instructions - N/A Follow up post procedure - PRN documented in this encounter Plan of Treatment Upcoming Encounters Date Type Department Care Team (Late st Contact Info) Description 03/17/2024 2:00 PM EDT TH Visit (TeleHealth) [place] [address] Yue Darby MD [facility] HOSPICE AND [place] [address] 04/12/2024 11:30 AM EDT [place] [address] Yue Darby MD [facility] HOSPICE AND [place] [address] 04/28/2024 8:30 AM EDT TH Visit (TeleHealth) [place] [address] Yue Darby MD [facility] HOSPICE AND [place] [address] documented as of this encounter Visit Diagnoses Diagnosis Neuralgia- Primary Neuralgia, neuritis, and radiculitis, unspecified documented in this encounter Care Teams Corporate Meeting Planner Relationship Specialty Start Date End Date Donte Padgett MD [address] [place] [address] PCP - General Family Medicine 08/24/15 documented as of this encounter
--- OUTSIDE RECORDS SUMMARY | 2024-03-04 16:56 | XMS_ITS | Encounter Summary ---
Author Organization [facility] Address [facility] [place] [address] Care Team Providers Care Assembler Skylights Name Role Phone Donte Padgett MD Primary Care Provider [phone] [phone] Encounter Details Date Type Department Care Team (Late st Contact Info) Description 11/27/2021 3:00 PM EDT - 11/27/2021 3:30 PM EDT [place] [address] Mika East MD [facility] [place] [address] INJECTION ANESTHETIC, ILIOINGUINAL, ILIOHYPOGASTRIC (WRVU 1) Social History Tobacco Use Types Packs/Day Years [...] Pain Log Patient: Aly De La Torre [id number] It is important for you to keep [...] Capsule Take by mouth. 03/14/2022 HYDROcodone-acetaminop hen ([place]) 5-325 mg Tablet Take 1 tablet by [...] ENDOSCOPY performed by Lance Pandya MD at [facility] ENDOSCOPY ??? PRO COLONOSCOPY, DIAGNOSTIC N/A 10/18/2015 COLONOSCOPY, DIAGNOSTIC performed by Seth Yeh MD at [facility] ENDOSCOPY ? ? PRO INJECTION ANES AGENT &/ STEROID ILIOINGUINAL IH NERVES Left 11/27/2021 INJECTION ANESTHETIC, ILIOINGUINAL, ILIOHYPOGASTRIC (WRVU 1.75) performed by Mika East MD [facility] PAIN MGMT MSO ??? PRO UPPER GI ENDOSCOPY, BIOPSY N/A 10/18/2015 EGD WITH BIOPSY performed by Seth Yeh MD at [facility] ENDOSCOPY There are no past surgical contraindications to this procedure ALLERGIES: Patient has no known allergies. There are no allergic contraindications to this procedure. MEDICATIONS: Medications 11/27/21 7525 Medication Sig Taking? Ibuprofen 200 mg Capsule Take by mouth. Yes HYDROcodone-acetaminophen ([place]) 5-325 mg Tablet Take 1 tablet by [...] Patient Name: Aly De La Torre : [id number] MR#: [id number] Case Date: 11/27/2021 Surgeon: Surgeon(s) and Role: [...] of interest was performed using High Frequency Rzqkvd36-4 MHz transducer, identifying relevant anatomy, landmarks, and [...] PM EDT TH Visit (TeleHealth) [place] [address] Yue Darby MD [facility] HOSPICE [place] [address] 04/12/2024 11:30 AM EDT [place] [address] Yue Darby MD [facility] HOSPICE [place] [address] 04/28/2024 8:30 AM EDT TH Visit (TeleHealth) [place] [address] Yue Darby MD [facility] HOSPICE [place] [address] documented as of this encounter Procedures Procedure Name Priority Date/Time Associated Diagnosis Comments Injection Anes Agent &/ Steroid Ilioinguinal IH Nerves (75888) 11/27/2021 2:58 PM EDT Neuralgia INJECTION ANESTHETIC, ILIOINGUINAL, ILIOHYPOGASTRIC Routine 11/27/2021 2:40 PM EDT Neuralgia documented in this encounter Visit Diagnoses Diagnosis Ilioinguinal neuralgia of left side- Primary Neuralgia Neuralgia, neuritis, and radiculitis, unspecified Neuralgia Neuralgia, neuritis, and radiculitis, unspecified documented in this encounter Administered Medications Inactive Administered Medications - up to 3 most recent administrations Medication Order MAR Action Action Date Dose Rate Site BUpivacaine (pf) (Marcaine) (2.5 mg/mL) 0.25% injection ONCE PRN, Starting on Thu11/27/21 at 1512, Until Thu11/27/21 at 1735, Intra-Operative (Intra-Procedure), Routine Given 11/27/2021 3:12 PM EDT 6 mLs methylPREDNISolone acetate (DEPO-Medrol) (40 mg/mL) injection ONCE PRN, Starting on Thu11/27/21 at 1512, Until Thu11/27/21 at 1735, Intra-Operative (Intra-Procedure), Routine Given 11/27/2021 3:12 PM EDT 40 mg documented in this encounter Active and Recently Administered Medications Times are shown in EDT. PRN Medication Order 11/25/2021 11/26/2021 11/27/2021 BUpivacaine (pf) (Marcaine) (2.5 mg/mL) 0.25% injection (CANCELED) ONCE PRN, Starting on Thu11/27/21 at 1512, Until Thu11/27/21 at 1735, Intra-Operative (Intra-Procedure), Routine 151 (Given - Provid er: Mika East MD) methylPREDNISolone acetate (DEPO-Medrol) (40 mg/mL) injection (CANCELED) ONCE PRN, Starting on Thu11/27/21 at 1512, Until Thu11/27/21 at 1735, Intra-Operative (Intra-Procedure), Routine 151 (Given - Provid er: Mika East MD) documented in this encounter Care Teams Assembler Skylights Relationship Specialty Start Date End Date Donte Padgett MD [address] [facility] [address] [place] [address] PCP - General Family Medicine 08/24/15 documented as of this encounter
--- OUTSIDE RECORDS SUMMARY | 2024-03-04 16:56 | XMS_ITS | Encounter Summary ---
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 Social History Tobacco Use Types Packs/Day Years [...] PM EDT TH Visit (TeleHealth) [place] [address] Yue Darby MD [facility] HOSPICE AND [place]AT[place] [address] 04/12/2024 11:30 AM EDT Office [place] [address] Yue Darby MD [facility] DR HOSPICE AND [place]AT[place] [address] 04/28/2024 8:30 AM EDT TH Visit (TeleHealth) [place] [address] Yue Darby MD [facility] DR HOSPICE AND [place]AT[place] [address] documented as of this encounter Visit Diagnoses Diagnosis Chronic left lower quadrant pain Abdominal pain, left lower quadrant shelter 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
--- OUTSIDE RECORDS SUMMARY | 2024-03-04 16:56 | XMS_ITS | Encounter Summary ---
Author Organization [facility] Address [facility] [place] [address] Care Team Providers Care Nurse Practical Name Role Phone Donte Padgett MD Primary Care Provider [phone] [phone] Reason for Visit * Reason Onset Date Comments Medication Refill 03/13/2022 Encounter Details Date Type Department Care Team (Late st Contact Info) Description 03/13/2022 Ref[place] [address] Yue Darby MD [facility] HOSPICE AND P[place]IAT[place] [address] Chronic left lower quadrant pain Social History [...] Telephone Encounter - Yue Darby MD - 03/13/2022 2:54 PM EDT Left message for patient re: request for refill of hydrocodone-APAP. Due to liver abnormalities seen on imaging, he should not be taking acetaminophen chronically. I am prescribing oxycodone 5 mg every 6 hours as needed for pain in its place while we await prior authorization for the Butrans patch. Patient needs opioid agreement signed and urine sample collected at next in- person visit (urine ordered and should be obtained when he is here for GI appointment). He has a telehealth appointment scheduled with me for tomorrow. Yue Darby MD Physical Medicine & Rehabilitation * Telephone Encounter - Patricia Busch RN - 03/13/2022 10:43 AM EDT rx line request for renewal of hydrocodone ast rx 02/11/22 #120 and no refill Follow up planned for tomorrow documented in this encounter Plan of Treatment Upcoming Encounters Date Type Department Care Team (Late st Contact Info) Description 03/17/2024 2:00 PM EDT TH Visit (TeleHealth) [place] [address] Yue Darby MD [facility] HOSPICE AND P[place]IAT[place] [address] 04/12/2024 11:30 AM EDT Office [place] [address] Yue Darby MD [facility] HOSPICE AND P[place]IAT[place] [address] 04/28/2024 8:30 AM EDT TH Visit (TeleHealth) [place] [address] Yue Darby MD [facility] HOSPICE AND P[place]IATIVE [place] [address] documented as of this encounter Visit Diagnoses Diagnosis Chronic left lower quadrant pain Abdominal pain, left lower quadrant documented in this encounter Care Teams Nurse Practical Relationship Specialty Start Date End Date Donte Padgett MD [address] [place] [address] [address] [facility] 1 [place] [address] PCP - General Family Medicine 08/24/15 documented as of this encounter
--- OUTSIDE RECORDS SUMMARY | 2024-03-04 16:56 | XMS_ITS | Encounter Summary ---
Author Organization [facility] Address [facility] [place] [address] Care Team Providers Care Maintenance Plumber Name Role Phone Donte Padgett MD Primary Care Provider [phone] [phone] Reason for Visit * Reason Onset Date Comments Medication Refill 01/09/2022 Encounter Details Date Type Department Care Team (Late st Contact Info) Description 01/09/2022 [place] [address] Cesar Fuentes MD [facility] [place] [address] Social History Tobacco Use Types Packs/Day Years [...] PM EDT TH Visit (TeleHealth) [place] [address] Yue Darby MD [facility] HOSPICE [place] [address] 04/12/2024 11:30 AM EDT [place] [address] Yue Darby MD [facility] HOSPICE [place] [address] 04/28/2024 8:30 AM EDT TH Visit (TeleHealth) [place] [address] Yue Darby MD [facility] HOSPICE [place] [address] documented as of this encounter Visit Diagnoses Not on filedocumented in this encounter Care Teams Maintenance Plumber Relationship Specialty Start Date End Date Donte Padgett MD [address] [place] [address] PCP - General Family Medicine 08/24/15 documented as of this encounter
--- OUTSIDE RECORDS SUMMARY | 2024-03-04 16:56 | XMS_ITS | Encounter Summary ---
Author Organization [facility] Address [facility] [place] [address] Care Team Providers Care Chief Arson Division Name Role Phone Donte Padgett MD Primary Care Provider [phone] [phone] Reason for Visit * Reason Onset Date Comments TeleHealth 03/11/2022 Encounter Details Date Type Department Care Team (Late st Contact Info) Description 03/11/2022 Telephone [place] [address] Yue Darby MD [facility] HOSPICE AND [place] [address] TeleHealth Social History Tobacco Use Types Packs/Day Years [...] Telephone Encounter - Mickie Esparza RN - 03/11/2022 12:08 PM EDT Unable to reach this patient by phone to review their medications and allergies prior to their upcoming tele-appointment with the Neurology provider. No message left. documented in this encounter Plan of Treatment Upcoming Encounters Date Type Department Care Team (Late st Contact Info) Description 03/17/2024 2:00 PM EDT TH Visit (TeleHealth) [place] [address] Yue Darby MD [facility] [address] HOSPICE AND [place] [address] 04/12/2024 11:30 AM EDT [place] [address] Yue Darby MD [facility] HOSPICE [place] [address] 04/28/2024 8:30 AM EDT TH Visit (TeleHealth) [place] [address] Yue Darby MD [facility] HOSPICE AND [place] [address] documented as of this encounter Visit Diagnoses Not on filedocumented in this encounter Care Teams Chief Arson Division Relationship Specialty Start Date End Date Donte Padgett MD [address] [place] [address] [address] [place] [address] PCP - General Family Medicine 08/24/15 documented as of this encounter
--- OUTSIDE RECORDS SUMMARY | 2024-03-04 16:56 | XMS_ITS | Encounter Summary ---
Author Organization [facility] Address [facility] [place] [address] Care Team Providers Care Expressive Art Therapist Name Role Phone Donte Padgett MD Primary Care Provider [phone] [phone] Reason for Visit * Reason Onset Date Comments TeleHealth 08/22/2021 Encounter Details Date Type Department Care Team (Late st Contact Info) Description 08/22/2021 Telephone [place] [address] Yue Darby MD [facility] HOSPICE AND [place] [address] TeleHealth Social History Tobacco Use Types Packs/Day [...] Miscellaneous Notes * Telephone Encounter - Mickie Epsarza RN - 08/22/2021 10:01 AM EST Spoke to this patient by phone to review their medications and allergies prior to their upcoming tele-appointment with the Neurology provider. Medications and allergies reviewed, verified and updatedas needed. documented in this encounter Plan of Treatment Upcoming Encounters Date Type Department Care Team (Late st Contact Info) Description 03/17/2024 2:00 PM EDT TH Visit (TeleHealth) [place] [address] Yue Darby MD [facility] HOSPICE AND [place] [address] 04/12/2024 11:30 AM EDT [place] [address] Yue Darby MD [facility] HOSPICE AND [place] [address] 04/28/2024 8:30 AM EDT TH Visit (TeleHealth) [place] [address] Yue Darby MD [facility] HOSPICE AND [place] [address] documented as of this encounter Visit Diagnoses Not on filedocumented in this encounter Care Teams Expressive Art Therapist Relationship Specialty Start Date End Date Dotne Padgett MD [address] [facility] 1 [place] [address] PCP - General Family Medicine 08/24/15 documented as of this encounter
--- OUTSIDE RECORDS SUMMARY | 2024-03-04 16:56 | XMS_ITS | Encounter Summary ---
Author Organization [facility] Address [facility] [place] [address] Care Team Providers Care Tax Processor Name Role Phone Donte Padgett MD Primary Care Provider [phone] [phone] Encounter Details Date Type Department Care Team (Late st Contact Info) Description 09/20/2021 Orders Only Pall[place] [address] Yue Darby MD [facility] HOSPICE AND [place] [address] Social History Tobacco Use Types Packs/Day Years [...] PM EDT TH Visit (TeleHealth[place] [address] Yue Darby MD [facility] HOSPICE AND [place] [address] 04/12/2024 11:30 AM EDT [place] [address] Yue Darby MD [facility] HOSPICE AND [place] [address] 04/28/2024 8:30 AM EDT TH Visit (TeleHealth) [place] [address] Yue Darby MD [facility] HOSPICE AND [place] [address] documented as of this encounter Visit Diagnoses Not on filedocumented in this encounter Care Teams Tax Processor Relationship Specialty Start Date End Date Donte Padgett MD [address] [facility] 1 [place] [address] PCP - General Family Medicine 08/24/15 documented as of this encounter
--- OUTSIDE RECORDS SUMMARY | 2024-03-04 16:56 | XMS_ITS | Encounter Summary ---
Author Organization [facility] Address [facility] [place] [address] Care Team Providers Care Instrument Technician Apprentice Name Role Phone Donte Padgett MD Primary Care Provider [phone] [phone] Encounter Details Date Type Department Care Team (Late st Contact Info) Description 04/10/2022 [place] [phone] Yue Darby MD [facility] DR HOSPICE [place] [address] Social History Tobacco Use Types Packs/Day Years [...] Telephone Encounter - Yue Darby MD - 04/10/2022 10:08 AM EDT Physical Medicine & Rehabilitation Telephone Note Telephone call placed to AlyLashay Butrans TD dose increased to 10 mcg/hr on Sunday 04/08. Thus far hehas not noted improvement. Patch also fell off in the shower yesterday so he put on a new one. Noted an red itchy rash where the previous patch was on his left upper pec. The new patch is in an area where he is insensate (left lower rib cage). He placed a band-aid and medical tape over it in hopes of it staying on in the shower today. Is taking oxycodone 5 mg four times daily and is due to run out at the end of this week (Wednesday 04/11). He is motivated to continue with up-titration of the buprenorphine patch. Plan/Recommendations: -Apply patch to area of body without hair; shave small area if needed -Cover patch with Tegaderm or plastic wrap when in shower -Apply Triamcinolone spray topically to site where next patch will be applied; allow spray to dry prior to patch placement -If the above is not covered by insurance, okay to instead use fluticasone spray (Flonase nasal spray) OTC topically to patch site -Continue Butrans 10 mcg/hr TD current patch; if still no pain relief at next patch change () will plan to increase to 20 mcg/hr (okay for him to place TWO 10 mcg/hr patches at same timeandpatient has been instructed to call to let us know if he does this) -Oxycodone 5 mg q6h prn for breakthrough pain (Rx: 120 tabs, no refills, PDMP reviewed today) -Patient reports he has mailed in opioid treatment agreement -UDS to be collected at next inpatient appointment Yue Darby MD Personal pager #[phone] 04/10/2022 10:25 AM documented in this encounter Plan of Treatment Upcoming Encounters Date Type Department Care Team (Late st Contact Info) Description 03/17/2024 2:00 PM EDT TH Visit (TeleHealth) [place] [address] Yue Darby MD [facility] HOSPICE AND [place] [address] 04/12/2024 11:30 AM EDT [place] [address] Yue Darby MD [facility] HOSPICE [place] [address] 04/28/2024 8:30 AM EDT TH Visit (TeleHealth) [place] [address] Yue Darby MD [facility] [address] HOSPICE [place] [address] documented as of this encounter Visit Diagnoses Diagnosis Chronic left lower quadrant pain Abdominal pain, left lower quadrant Dermatitis due to topical drug Contact dermatitis and other eczema due to drugs and medicines in contact with skin documented in this encounter Care Teams Instrument Technician Apprentice Relationship Specialty Start Date End Date Donte Padgett MD [address] [facility] [place] [address] PCP - General Family Medicine 08/24/15 documented as of this encounter
--- OUTSIDE RECORDS SUMMARY | 2024-03-04 16:56 | XMS_ITS | Encounter Summary ---
Author Organization [facility] Address [facility] [place] [address] Care Team Providers Care Mobile Home Installer Name Role Phone Donte Padgett MD Primary Care Provider [phone] Reason for Visit * Reason Onset Date Comments Schedule External Case 09/16/2021 Other 09/16/2021 Order Encounter Details Date Type Department Care Team (Late st Contact Info) Description 09/16/2021 Telephone [place] [address] Yue Darby MD [facility] DR HOSPICE AND [place] [address] Schedule External Case; Other (Order ) Social History Tobacco Use Types Packs/Day Years [...] encounter Miscellaneous Notes * Telephone Encounter - Lissett Riley - 09/16/2021 9:45 AM EDT Copied from [facility] #[id number]. Topic: Specialty Dept CRMs - Orders >> Sep 16, 2021 9:18 AM Yary Santo wrote: MRI Thoracic Spine wo Contrast (Generic) Orders Request Specialist: Yue Darby MD Type of Request: [x] Input orders Type/Name of Order: Imaging If Labs and Imaging: Date of Lab/Imaging/Testing Appt: Not yet scheduled. Date of PCP Appt: N/A Appt Type with PCP: Other: N/A Patient Requesting to Have Orders Sent to Facility Outside of [facility]: Rema GomezSharon from [facility] called stating that the MRI Thoracic Spine wo Contrast (Generic) ordered on 08/14/21 has and they would like it to be reordered so patient can complete before scheduling. documented in this encounter Plan of Treatment Upcoming Encounters Date Type Department Care Team (Late st Contact Info) Description 03/17/2024 2:00 PM EDT TH Visit (TeleHealth) Neurology at [place] [phone] Yue Darby MD [facility] DR HOSPICE AND [place] [address] 04/12/2024 11:30 AM EDT Office [place] [address] Yue Darby MD [facility] DR HOSPICE AND [place] [address] 04/28/2024 8:30 AM EDT TH Visit (TeleHealth) [place] [address] Yue Darby MD [facility] DR HOSPICE AND [place] [address] documented as of this encounter Visit Diagnoses Not on filedocumented in this encounter Care Teams Mobile Home Installer Relationship Specialty Start Date End Date Donte Padgett MD [address] [place] [address] PCP - General Family Medicine 08/24/15 documented as of this encounter
--- OUTSIDE RECORDS SUMMARY | 2024-03-04 16:56 | XMS_ITS | Encounter Summary ---
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 Cesar Fuentes. Patient has chronic left lower abdominal pain unresponsive to long-standing low- dose opioid treatment. [place] PDMP reviewed. Opioid agreement to be mailed to patient. UDS ordered and [facility]. ORT to be completed at next encounter. Plan: -Referral to GI motility clinic to rule-out motility issues related to neurogenic bowel -Rx sent to [facility] in [facility] [place]: 1. buprenorphine 5 mcg/hr TD patch q7days 2. naloxone 4 mg/actuation spray -Patient instructed that he may continue his hydrocodone-APAP 5-325 for now as prescribed by Dr. Fuentes; ultimate plan will be to up-titrate the patch and wean off of this Opioid Risk Tool Female Male 1. Family history of Substance Abuse Alcohol [] 1 [] 3 Illegal Drugs [] 2 [] 3 Prescription Drugs [] 4 [] 4 2. Personal History of Substance Abuse Alcohol [] 3 [] 3 Illegal Drugs [] 4 [] 4 Prescription Drugs [] 5 [] 5 3. Age (chi box if 16-45) [] 1 [] 1 4. History of Preadolescent Sexual Abuse [] 3 [] 0 5. Psychological Disease Attention Deficit Disorder, Obsessive Compulsive D/o, Bipolar, Schizophrenia [] 2 [] 2 Depression [] 1 [] 1 TOTAL: Comments about ORT in relation to this patient: Opioid Risk Category: TBD Yue Darby MD Palliative Medicine Personal pager #[phone] Team pager #[phone] 02/25/2022 5:51 PM documented in this encounter Plan of Treatment Upcoming Encounters Date Type Department Care Team (Late st Contact Info) Description 03/17/2024 2:00 PM EDT TH Visit (TeleHealth) [place] [address] Yue Darby MD [facility] DR HOSPICE AND [place] [address] 04/12/2024 11:30 AM EDT [place] [address] Yue Darby MD [facility] HOSPICE AND [place] [address] 04/28/2024 8:30 AM EDT TH Visit (TeleHealth) [place] [address] Yue Darby MD [facility] DR HOSPICE AND [place] [address] documented as of this encounter Visit Diagnoses Diagnosis Chronic left lower quadrant pain Abdominal pain, left lower quadrant 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
--- OUTSIDE RECORDS SUMMARY | 2024-03-04 16:56 | XMS_ITS | Encounter Summary ---
Author Organization [facility] Address [facility] [place] [address] Care Team Providers Care Application Services Manager Name Role Phone Donte Padgett MD Primary Care Provider [phone] [phone] Reason for Visit * Reason Onset Date Comments Medication Refill 11/11/2021 Encounter Details Date Type Department Care Team (Late st Contact Info) Description 11/11/2021 [place] [phone] Cesar Fuentes MD [facility] [address] Social History Tobacco Use Types Packs/Day Years [...] Telephone Encounter - Leia Alvarez CMA - 11/11/2021 4:27 PM EDT LF 10/11/21 LV 08/27/21 documented in this encounter Plan of Treatment Upcoming Encounters Date Type Department Care Team (Late st Contact Info) Description 03/17/2024 2:00 PM EDT TH Visit (TeleHealth) [place] [address] Yue Darby MD [facility] HOSPICE [place] [address] 04/12/2024 11:30 AM EDT [place] [address] Yue Darby MD [facility] HOSPICE [place] [address] 04/28/2024 8:30 AM EDT TH Visit (TeleHealth) [place] [address] Yue Darby MD [facility] HOSPICE [place] [address] documented as of this encounter Visit Diagnoses Not on filedocumented in this encounter Care Teams Application Services Manager Relationship Specialty Start Date End Date Donte Padgett MD [address] [place] [address] PCP - General Family Medicine 08/24/15 documented as of this encounter
--- OUTSIDE RECORDS SUMMARY | 2024-03-04 16:56 | XMS_ITS | Encounter Summary ---
Author Organization [facility] [place] [address] Care Team Providers Care Installer Soft Top Name Role Phone Donte Padgett MD Primary Care Provider [phone] [phone] Reason for Visit * Reason Onset Date Comments Prior Authorization 03/18/2022 Encounter Details Date Type Department Care Team (Late st Contact Info) Description 03/18/2022 Telephone [place] [address] Yue Darby MD [facility] [address] HOSPICE [place] [address] Prior Authorization Social History Tobacco Use Types [...] * Telephone Encounter - Radha Mora - 03/21/2022 12:41 AM EDT Images from the original note were not included. * Telephone Encounter - Radha Mora - 03/21/2022 12:39 AM EDTSummary: Your request has been approved Images from the original note were not included. ? Your request has been approved Request Reference Number: [id number]. BUPRENORPHIN DIS 5MCG/HR is approved through 07/05/2022. Your patient may now fill this prescription and it will be covered. * Telephone Encounter - Rdaha Mora - 03/18/2022 8:05 PM EDT Images from the original note were not included. * Telephone Encounter - Radha Mora - 03/18/2022 8:03 PM EDT Images from the original note were not included. documented in this encounter Plan of Treatment Upcoming Encounters Date Type Department Care Team (Late st Contact Info) Description 03/17/2024 2:00 PM EDT TH Visit (TeleHealth) [place] [address] Yue Darby MD [facility] HOSPICE [place] [address] 04/12/2024 11:30 AM EDT Office [place] [address] Yue Darby MD [facility] HOSPICE [place] [address] 04/28/2024 8:30 AM EDT TH Visit (TeleHealth) [place] [phone] Yue Darby MD [facility] DR HOSPICE [place] [address] documented as of this encounter Visit Diagnoses Not on filedocumented in this encounter Care Teams Installer Soft Top Relationship Specialty Start Date End Date Padgett, Donte J, MD [address] [place] [address] PCP - General Family Medicine 08/24/15 documented as of this encounter
--- OUTSIDE RECORDS SUMMARY | 2024-03-04 16:56 | XMS_ITS | Encounter Summary ---
Author Organization [place] [address] Care Team Providers Care Chronometer Assembler And Adjuster Name Role Phone Donte Padgett MD Primary Care Provider [phone] Reason for Referral * Diagnostic Test (Routine) [...] wwo Contrast MRI Angiogram Abdomen wo Contrast Billie Yao APRN [facility] [place] [address] [place] [address] Referral ID Status Reason Start Date Expiration Date V isits Requested Visits Authorized [id number] Closed Specialty Service Requested 04/21/2022 10/21/2023 1 1 * Consultation (Routine) - Closed Specialty Diagnoses / Procedures Referred By Contfercho t Referred To Contact Gastroenterology Diagnoses Ilioinguinal neuralgia of left side Arthralgia [...] status migrainosus, not intractable, unspecified migraine type Billie Yao APRN [facility] [place] [address] Donna Bowser, PhD [facility] [address] Referral ID Status Reason Start Date Expiration Date V isits Requested Visits Authorized [id number] Closed Consult, Test & Treat 04/21/2022 04/21/2023 1 1 * Diagnostic Test (Routine) - Closed Specialty Diagnoses / Procedures Referred By Elfego hong Referred To Contact Diagnoses Ilioinguinal neuralgia of [...] type Procedures Duplex Study Visceral Arteries, Comp Billie Yao APRN [facility] [place] [address] [facility] [address] [place] [address] Referral ID Status Reason Start Date Expiration Date V isits Requested Visits Authorized [id number] Closed Specialty Service Requested 04/21/2022 04/21/2023 1 1 Reason for Visit * Consultation (Routine) - Closed Specialty Diagnoses / Procedures Referred By Elfego hong Referred To Contact Gastroenterology Diagnoses Chronic left lower quadrant pain Neurogenic bowel 31 yo M with spinal cord injury, neurogenic bowel and chronic LLQ pain, food avoidance due to worsening of pain. Extensive GI work-up in the past. Yue Darby MD [facility] [place] [address] [facility] [address] [place] [address] Referral ID Status Reason Start Date Expiration Date V isits Requested Visits Authorized [id number] Closed Second Opinion 02/25/2022 02/25/2023 1 1 Encounter Details Date Type Department Care Team (Latest Contact Info) Description 04/21/2022 8:00 AM EDT TH Visit (TeleHealth) [place] [address] Billie Yao APRN [facility] [place] [address] Ilioinguinal neuralgia of left side; Arthralgia of [...] this encounter Patient Instructions * Patient Instructions* Billie Yao APRN - 04/21/2022 8:00 AM EDT Aly De La Torre It was nice to meet you today. The following orders were placed during our visit today: Orders Placed This Encounter Procedures MRI Angiogram Abdomen wo Contrast Amb Referral to GI Behavioral Health For imaging studies at the [facility], please call radiology for scheduling (numbers listed below). Main radiology scheduling line Direct phone numbers: MRI, you can directly call: CT, you can directly call: ultrasound, you can directly call: Please note: given the ongoing COVID-19 pandemic, there has been delays in the scheduling and completion of various investigative studies. We are working to improve this, and in the meantime, we appreciate your patience and cooperation. As the results come back from your various tests, we will only contact you for results which require urgent attention. Otherwise, you will discuss results and next steps with your assigned provider during your next visit. Sincerely, Billie Yao APRN Department of Gastroenterology and Hepatology [facility] Here are some of the imaging studies that can be ordered in GI: MR dopplar/angio: this is a MRI that looks at the blood vessels in the abdomen to see if there is narrowing or blockage of these vessels. *You will be given more instruction as needed by the scheduling team or nurses prior to your tests *All results will be discussed at your follow up appointment unless I am placing an order and/or itneeds to be addressed sooner. [facility] Classes (all virtual) The below classes are all designed to help improve the brain-gut connection and your ability to manage your GI symptoms. If you'd like to learn more about the brain-gut connection and our services, please visit the [facility] Behavioral health website at: [email or web address] Note: most, but not all insurance companies cover these classes. If you're concerned or want more information, please contact your insurance company or the [facility] billing office ([email or web address]). Your insurance company may request a CPT code if you ask about coverage. [place] [address]. Our hope is that through these classes, we can meet the needs of more patients. If a class you signed up for is starting and you are too busy or no longer need it, please cancel so we can give the spot to someone else. If you do not show up for the first class in a series, the remaining classes in the series will be cancelled. Patients with multiple no-shows may not be scheduled for future programs. Multi-visit class schedule: Mondays at 4:00pm on 05/26, 06/02, 06/09, & 06/16 (Leader: [place]) Functional Bowel Disorders: Information Handout for Patients and Primary Care Providers Efraín Caban MD, FRCPC + Stephen Manrique MD, CARMEN Cordlel Rodriguez APRN + Kamilla Fabian APRN + Billie Yao APRN [facility] What are functional bowel disorders? These are the most common type of gastrointestinal disorders in the [place] The most common functional bowel disorder in the [place] is irritable bowel syndrome (IBS) Irritable bowel syndrome affects the lower GI tract and can cause bloating, abdominal pain, diarrhea, and constipation Functional dyspepsia (FD) affects the upper GI tract and can cause bloating, burping, heartburn, nausea, fullness and stomach discomfort In functional disorders the gut is structurally/anatomically normal but is not functioning properlydue to abnormalities in the enteric (gut) nervous system Two mechanisms - heightened sensitivity of the gut to normal sensations (sensory nerves) and abnormal gut motility (motor nerves) These disorders are caused by a combination of a genetic factors, changes to the gut microbiota (intestinal bacteria) and environmental triggers How common are these disorders and what is the impact? 15-20% of general [place] population has IBS or FD or both 2nd most common cause for lost work days (after common cold) in [place] Estimated $30 billion dollar cost to [place] economy per year These disorders can have a significant impact on quality of life How is the diagnosis made? The diagnosis of a functional disorder is NOT a ???diagnosis of exclusion?? (common misconception) Investigations may be necessary to look for other disorders (such as celiac disease) if the diagnosis is unclear Work-up may include history (description of symptoms), physical exam, bloodwork, stool studies, diagnostic imaging and endoscopy What is the prognosis? Functional bowel disorders are unfortunately chronic disorders and often have a major impact on patient quality of life, function, and relationships Symptoms may gradually resolve is a small proportion of patients (highest rate in patients with immediate onset of symptoms after infection); custodial symptoms are expected in most patients however Intermittent exacerbations (i.e. ???flares?? ) are common and may be caused by stress, infections, antibiotic exposure, and lack of adherence to treatment plans When should a patient be re-evaluated? Patients with stable symptoms do NOT need episodic re-evaluation Subtle changes in symptoms and symptom flares are common Patients should be re-evaluated if they have progression or dramatic changes in symptoms, severe abdominal pain, swallowing difficulties, unexplained weight loss, anemia (low blood counts), or bleeding If you have concerns be sure to talk to your doctor What are the goals of therapy? Ultimately we hope that you to able to achieve prolonged periods of stability with minimal daily symptoms and have a decrease in the frequency/severity of ???flares?? However, we believe the most important goal is to help you improve your overall quality of life. For most patients this means doing the things that are important in your life despite having symptoms. This is generally achieved by helping you develop coping skills and helping you achieve a greater understanding of your disorder. Remember, generally complete resolution of symptoms is NOT a realistic goal. How do I use this information? Talk to you primary care provider and/or local marketing administrator and share this document. Treatment of functional disorders is a team effort! Set realistic goals! Remember it is unlikely that any one measure will completely eliminate all symptoms ???Start low and go slow?? with all measures to avoid potential side effects Do ONE measure at a time - add measures as needed in a ???step-kee fashion?? - this will help determine if a particular measure is helpful or not Stay on any measure continuously for at least 4-6 weeks prior to assessing whether or not it is helping (improvements are often slow to occur) After an adequate trial ask yourself if the benefit is worth continuing the treatment Remember there are a limited number of treatment options available. We want to be absolutely sure that a measure is not effective or intolerable before stopping it and considering other options Often patients will need several ???layers?? or ???steps?? of therapy - finding the right combination for you takes time and patience We specifically recommend all patients to do ALL lifestyle and dietary measures AND try using Metamucil (or other psyllium fiber supplement) and probiotics together - this approach benefits most patients OTC (bkts-xlq-gnqllej) medications can be used for ongoing bothersome symptoms as listed below Your provider (PCP or local Gastroenterology provider or [facility] G[facility] provider) may decide to use prescription medications if you have ongoing symptoms despite strict adherence to lifestyle and dietary measures and OTC medications Your provider will give you advice on treatments but it is your responsibility to work on these measures to improve your symptoms. Lack of adherence to recommendations is one of the most common causefor ongoing symptoms. If symptoms are controlled try easing back or stepping down on measures - remember the main goal isto improve quality of life (not necessarily eliminate symptoms). Non-Pharmacologic General Treatments Lifestyle measures Many lifestyle factors can worsen IBS symptoms However, IBS is not caused by these factors (common misconception) These lifestyle factors include the following: Inadequate sleep Weight gain Inadequate exercise Stress Depression/anxiety - this should be brought up to your Primary Care Provider (if left untreated it is unlikely the functional bowel disorder will improve) Dietary measures Trigger food avoidance - you should re-introduce foods once symptoms settle as overly restrictive diet can be unhealthy and even harmful Fatty foods, spicy foods, alcohol, and caffeine can worsen symptoms Consider a 2 week dairy-free trial for possible lactose-intolerance Your PCP or GI provider can refer you to a dietitian to discuss specialized diets. The overall dietary goal is to allow you to have a well-balanced and nutritious diet Fiber and Fluid Adequate fiber and fluid intake is essential for optimal functioning of the human digestive tract Aim for a fluid intake goal of 8-10 glasses of water a day (caffeine and alcohol count as minus onein calculation) Aim for a fiber intake goal of 30 grams per day - some patients may require more or less Increase fiber by 5 grams per week (remember ???start low and go slow?? ) Fiber can be from multiple dietary sources but supplemental is often helpful Fiber intake should include psyllium fiber; this is the type of fiber used in research studies for treatment of functional disorders Sources of psyllium include All-Bran psyllium buds, Metamucil, Konsyl, bulk psyllium ([employer] stores and bulk stores) Specifically we recommend starting Metamucil or Konsyl at a low dosage - start at one teaspoon a day for one week then gradually increase by one teaspoon per week until no further benefit is achieved. Some patients may get bloating when they start a fiber supplement. This generally goes away after 1-2 weeks of daily therapy. Try backing off to a lower dose or trying an alternate version (such as sweetener-free Metamucil) If persistent issues try Citrucel (methylcellulose) as an alternate fiber supplement Probiotics Measures aimed at improving the microbiome such as probiotics are a promising area but convincing medical evidence is still lacking Dfbu-xkf-hiuosmw supplements including probiotics are not typically evaluated by FDA. The quality and even safety is often unclear and many products (despite being very expensive) actually do not contain any active ingredients at all! Live-culture yogurts, kombucha, sauerkraut and other dietary sources may help improve your microbiome Align, TuZen, and Visbiome are the three probiotics that are supported by medical research to have benefit for IBS Florastor has been shown to decrease antibiotic-associated diarrhea and post- infectious diarrhea BioK Plus has been shown to decrease antibiotic-associated diarrhea and antibiotic-related infections Rglk-bbr-Clcdxdq Medications for Functional Gut Disorders Based on Symptoms Diarrhea Loperamide (Imodium) should be considered first for mild and intermittent symptoms - start with small doses and take several hours before needed (or even before bed) (it is generally considered safe for long-term use) Constipation Patients with mild constipation can use laxatives ???as needed?? (in other words, if you feel constipated or haven't had a regular bowel movement). However, patients with more severe constipation generally need laxatives on a regular schedule (every day or every second day for example). This is called ???maintenance therapy?? . PEG 3350 (Miralax) is a stool softener that is safe for custodial usage (no risk of dependency) andthe dosage can be adjusted to achieve 1-2 soft bowel movements per day; you can take a capful (17g)twice daily if needed Milk of magnesia and lactulose are alternate stool softeners that are generally safe for regular use in most patients (you should ask your provider first). Bisacodyl (Dulcolax) and senna (Senokot) are stimulant laxatives for occasional use only as they may lead to dependency with regular long-term use. Enemas and bowel preparations (e.g. Colyte or Golytely) can be used to treat severe stool impaction---- this is called ???rescue therapy?? . Drink 2 litres in 4 hours in the evening then take another 2 litres over 4 hours the next morning. Another option is to mix up 14 capfuls of Miralax with 64 oz of Gatorade. After rescue therapy immediately begin aggressive ???maintenance therapy?? with the therapies above. Bloating/Pain Ensure constipation adequately treated - impacted stool can create a partial obstruction and contribute to pain Peppermint oil may also be useful; a capsule form exists as well (IBgard) Simethicone (Gas-X) can be helpful for occasional usage for ???gas spasms?? Acetominophen (Tylenol) is safest analgesic (pain killer) on the gut NSAIDs (e.g. ibuprofen) can cause gut irritation/inflammation - it's best to avoid or use in low doses only Medical cannabis has been used to treat various chronic pain disorders; it has been reported to benefit some patients with pain but has not be rigorously studied and may actually worsen symptoms in some patients with functional disorders. At this point we generally do NOT recommend using medical cannabis to treat functional disorders AVOID narcotics/opioids as they typically make symptoms much worse and there is a risk of addictionand/or dependence Exercise, hot-water bottle/heating pad, warm bath/shower, and warm beverages are also good treatments for painful bloating episodes Heartburn/Nausea/Vomiting/Dyspepsia Acid reducing medications such as proton-pump inhibitors (PPIs) and H2 blockers may be helpful especially if you have gastroesophageal reflux disease (GERD) Often a combination of anti-nausea medications (cczv-zdf-vfsquoa or prescription) works better thanhigh doses of only one medication A herbal product called STW5 (Iberogast) is supported by some studies to help dyspepsia but data onlong-term effectiveness and safety is limited L-carnitine and coenzyme Q10 supplements have been reported to be beneficial to some patients with chronic nausea and vomiting If using cannabis (recreational or medical) consider stopping for at least two weeks (ideally a full month). While cannabis has been reported to help some patients with nausea it may actually be contributing to symptoms. Disclaimer This information is intended for education purposes only It is not meant to replace direct patient-provider care All medications should be used under the supervision of a Gastroenterology provider or Primary CareProvider Authors are not liable for misuse/misinterpretation of this information Patient Resources [place] [employer] https://www.gastro.org/practice-guidance/kb-pcbgzwc-jmrlhy/ topic/zpsahplfb-eqiqf-qwykktrt-ibs Badgut.org https://badgut.org/information-centre/o-z-clytzluxo-topics/ibs/ AboutIBS.org https://www.aboutibs.org/ Uptodate.com https://www.[employer] [facility]/contents/jvzcowujy-rurcc-uxfvrded-hnjijb-mko-burbai documented in this encounter Progress Notes * Billie Yoa APRN - 04/21/2022 8:00 AM EDT [facility] TELEMEDIC[facility] Chief Complaint: Aly De La Torre is a 32 y.o. patient referred for consultation by Dr. Darby for neurogenic bowel History of Present Illness: 32 y.o. male with neurogenic bowel after spinal cord injury per chart review: -PMH: -chronic LLQ: improves lying down, worse when eating (ARFID) -current daily suppository and digital stimulation -will have pain AFTER BM regimen -bread before bowel regimen worsens pain -previously tried decreasing meat and gluten without improvement -2016 seen at [facility] for second opinion for chronic abdominal pain Marijuana nightly to help pain Increased desipramine: if not effective, recommended starting gabapentin Per patient: -dealing with LLQ pain: ongoing for longstanding period (6+ years) -constant pain from waking to bed -eating makes it worse: tries to avoid eating (only once per day) -lying flat: relieves some of the pain/pressure -previously seen by: PCP, pain clinic at [facility], then [facility] -does get occasional muscle/shoulder aches but otherwise LLQ is the only area of consistent pain -unable to pass gas during the day (only during bowel regimen) Pain is worse RIGHT after BM (1-2 hours later, gets better until he eats) -struggling to work and do activities he enjoys because of pains BM: bowel regimen every day, around the same time (late morning, works in afternoon) Digital stimulation [place]: soft/formed, occasional loose, occasional constipation Endorses abdominal pain, bloating/distention (constant, especially after meals) Eats once at dinner because that's when pain is the least Did initially loose 45-50lbs within a couple months: then started to regain Has recently lost weight/muscle in upper tone, abdomen seems larger Steak or chicken (protein) Vegetable (corn, asparagus, brussels sprouts, potato) Current Regimen: Watches what he eats, avoids eating Past Therapies: Bentyl: not helpful Desipramine: no change Nerve blockers antispasmodics Injections remeron Unsure about gabapentin Neuro pain -pain patch: 20mg helpful but worsened nausea -Trying to avoid oxycodone Lifestyle Caffeine/Soda/Artificial Sugar: 1 coffee/day, 1 soda/day, then water or zero sugar gatorade Diet: see above 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 [...] ?? IMPRESSION:??Normal study. No evidence of Crohn's disease 02/24/22 CTAP w contrast: IMPRESSION ?? 1. No acute pathology identified in the abdomen or pelvis. 2. Hepatomegaly with hepatic steatosis. 3. Mild mixed calcified and noncalcified atheromatous disease of the infrarenal abdominal aorta. Review of systems: 14-point review of systems reviewed and negative except as above. Medications: Outpatient Medications Prior to Visit Medication Sig Dispense Refill ??? oxyCODONE (Roxicodone) 5 mg Tablet Take 1 tablet by mouth every 6 hours as needed for Pain. 120tablet 0 ??? triamcinolone (KENALOG) 0.147 mg/gram Aerosol Apply topically every 7 days. [place] area where pain patch will be placed and allow spray to dry prior to patch placement. 63 g 0 ??? buprenorphine (Butrans) 10 mcg/hour Patch Weekly Change 1 patch on the skin every 7 days. 4 patch 0 ??? polyethylene glycoL (Miralax) 17 gram Powder in Packet Take 17 g by mouth daily. ??? baclofen (Lioresal) 10 mg Tablet Take 1.5 tablets by mouth 3 times daily. Take 15 mg three times daily (x 1 week). May increase to 20 mg three times daily after a week. 180 tablet 3 ??? naloxone (Narcan) 4 mg/actuation [place], Non-Aerosol 1 each by Nasal route as needed (respiratory depression from opioid overdose). 2 each 3 ??? simethicone (MYLICON) 125 mg Tablet, Chewable Take 125 mg by mouth every 6 hours as needed for Heartburn. ??? naloxone (Narcan) 4 mg/actuation [place], Non-Aerosol 1 each by Nasal route as needed (respiratory depression from opioid overdose). 2 each 3 ??? bisacodyL (Dulcolax) [address] 1 suppository rectally daily. 60 suppository 3 ??? omeprazole 20 mg Tablet, Delayed Release (E.C.) Take 20 mg by mouth daily as needed. Prn heartburn, takes 2-3 x/week No facility-administered medications prior to visit. Allergies: has No Known Allergies. Past Medical History: Patient Active Problem List Diagnosis Code ??? [...] ??? Ilioinguinal neuralgia of left side G57.92 Past Surgical History: has a past surgical history that includes Colonoscopy, Diagnostic (31145) (N/A, 10/18/2015); Upper Gi Endoscopy, Biopsy (39639) (N/A, 10/18/2015); Unlisted Diagnostic Gastroenterology Procedure (30688) (N/A, 12/11/2015); and Injection Anes Agent &/ Steroid Ilioinguinal IH Nerves (08450) (Left, 11/27/2021). Family History: Mother deals with IBS Sister (younger) some IBS Social History: reports that he has been smoking cigarettes. He has been smoking about 0.50 packs per day. He has never used smokeless tobacco. He reports current drug use. Drug: Marijuana. He reports that he does not drink alcohol. Tobacco: cigarettes, 1pp Marijuana: smokes 1/day before bed, only thing that helps pain (relieves pain) ETOH: rare Physical exam: Constitutional: well appearing, no apparent distress Eyes: conjunctiva clear without icterus, pallor, or injection ENT: Nose without external redness or drainage. Mouth with normal dentition; moist mucous membranes CV: No lower extremity peripheral edema or signs of cyanosis Respiratory: Breathing comfortably and speaking in full sentences without evident tachypnea or signs of respiratory distress GI: Abdomen non-distended and tender to self-palpation in LLQ Skin: No visible rashes Psych: Appropriate affect. Intact thought and speech Neuro: Alert and oriented. Moving upper extremities appropriately Questionnaire: No flowsheet data found. Assessment/Plan: Mr. De La Torre is a 32 y.o. patient with chronic LLQ abdominal pain. Patient has been seen by multiplepain clinics and GI facilities as well as previous evaluation for this in 2016 at [facility]. PMH significant for spinal cord injury, neurogenic bladder, neurogenic bowel, chronic narcotic use for pain management, depression/anxiety. Patient has had extensive imaging and testing as described above. Current bowel regimen involves digital stimulation and OTC medications, and is able to produce BM daily. Constipation is infrequent. Patient primary concern is constant daily LLQ abdominal pain that has been unresponsive to previoustrials of neuromodulator therapy including mirtazapine, desipramine, buspirone. Pt believes he has tried gabapentin before to help with pain immediately following his back injury, but not for abdominal pain. Does not recall pregabalin trial. Of note, he does use oxycodone to help with other chronicpain, but when asked if he has pain in other parts of his body, response was no, only there. He uses marijuana, smoked nightly, which does relieve pain and lying flat also helps this. 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 20mg buprenorphine patches were helpful for pain, but resulted in vomiting so patient discontinued use. In addition to abdominal pain, patient presentation is concerning for deteriorating mental health. He denies active SI and denies having a plan at this time, but has lost the will to live because of chronic abdominal pain. He denies wish to cause himself harm, just wants pain to resolve. Given this information, patient will need to seek treatment for his mental health concerns. Patient was toldto seek emergency care if he does develop SI. With the complex nature of this patient's neurological/spinal trauma history, and his poor response to previous attempts to improve his abdominal pain (including neuromodulators and injections from pain clinic), it will be challenging to find a regimen to help with this, and may take extended time to see improvement if possible. We spent much of the visit discussing previous testing he has had for this condition as well as thebrain-gut axis and how it relates to his chronic abdominal pain. Patient will be referred to GI [facility] for CBT: he seemed reluctant for groups or to even try this treatment for abdominal pain, but patient is willing to try all avenues of management at this point. Will also try RX for gabapentin, starting at 100mg TID. Discussed that this can be sedating: recommend patient start trying medication on aFriday night into the weekend so he can assess response/sensitivity without risk of impacting work. If patient reaches maximum dosing of gabapentin without improvement of abdominal pain, next step will be to involve pain clinic again for additional recommendations. As for additional GI testing, offered repeat colonoscopy, but this is unlikely to yield new information and was declined by patient. We will move forward with MR doppler/angio to assess for possible vascular component to chronic abdominal pain. At next visit, will plan to discuss consideration of repeat EGD given history of esophagitis and irregular zline, but this is currently well managed usingPRN omeprazole, and not the patient's primary concern. Diagnostics: -repeat colonoscopy: declined at this time -consider repeat EGD at next visit -MR doppler/angio -referral to GI : CBT, Mondays at 4pm starting in May Therapeutics: -continue current bowel regimen -PRN enema if needed to achieve AM cleanout. -continue marijuana use at night since helpful for symptoms -START 100mg gabapentin TID: this dose can be increased as needed until reaching desired effect Consider additional recommendations from pain clinic if this is unsuccessful at maximum dose or nottolerated -Review AVS for recommendations on functional bowel disorders and techniques to address common GI symptoms. Trial each for at least 30 days. At the end of 30 days, if it is partially/totally effective for symptoms, keep using and try next agent. If not effective at all, stop using and try next recommendation. -continue to follow up with PCP and other healthcare providers regarding comorbid concerns -all medication refill requests should be through PCP -When to go to ER for urgent evaluation: new/severe abdominal/chest pain, fevers, inability to maintain PO hydration or manage secretions, feeling like food is stuck in chest >1-2 hours, large amounts of blood/black tarry stools, loss of consciousness, etc We discussed that complete symptom relief may not be a fully achievable goal for this chronic condition, but that improvement in quality of life, healthy days at work and family functions, and also general symptom improvement may be more reasonable goals. We discussed that treatments should be tried individually and for periods of at least 4-8 weeks to truly assess symptom response. I did my bestto answer questions to the fullest ability. We discussed that recommended treatments should be tried individually for at least three months at a time to truly assess for a meaningful response, or as long as tolerated, before changing therapy. RTC with me in 2 months The patient was located in [place] at the time of their visit. TIME SPENT WITH PATIENT Time spent reviewing records prior to this encounter on day of appointment: 10 minutes Time spent during encounter with patient including counselin minutes Time spent documenting encounter after office visit: 20 minutes Billie Yao APRN [facility] [place] [address] documented in this encounter Plan of Treatment Upcoming Encounters Date Type Department Care Team (Late st Contact Info) Description 03/17/2024 2:00 PM EDT TH Visit (TeleHealth) [place] [address] Yue Darby MD [facility] [place] [address] 04/12/2024 11:30 AM EDT Office [place] [address] Yue Darby MD [facility] [place] [address] 04/28/2024 8:30 AM EDT TH Visit (TeleHealth) [place] [address] Yue Darby MD [facility] [place] [address] Scheduled Referrals Name Type Priority Associated Diagnoses Orde r Schedule Amb Referral to GI Behavioral Health Outpatient Referral Routine Ilioinguinal neuralgia of left side Arthralgia of [...] status migrainosus, not intractable, unspecified migraine type Ordered: 04/21/2022 documented as of this encounter Results * Duplex Study Visceral Arteries, Comp (07/31/2022 9:51 AM EST) VB Text Report Department: Vascular Surgery Lab Patient: [id number] (ALY DE LA TORRE) CPT: 69791 Referring Physician: BILLIE YAO ?? Phone: Indications: 32 year old male with abdominal pain, ? MALS, mesenteric stenosis Findings: Unilateral ? Waveform ? PSV cm/s ??EDV cm/s ?? Dionne Visceral Aorta ? 97 ?13 ?? Celiac Artery, Proximal ??Yell-Biphasic ? 306 ? 112 ?? Celiac Artery, Mid ? Yell-Biphasic ? 187 ? Celiac Artery, Distal ?Yell-Biphasic ? 253 ?44 ?? Sup Mes Artery Proximal ??Triphasic ? 163 ?10 ?? Sup Mes Artery Middle ?Triphasic ? 130 ? 0 ?? Sup Mes Artery Distal ?Triphasic ? 117 ?11 ?? Hepatic Artery ? Yell-Biphasic ? 140 ?29 ?? Inf Mes Artery [...] of Report [facility]AS[facility] 07/31/2022 9:51 AM EST Billie Yao APRN VASCULAR ORDERABLES VASCU[facility] * MRI Angiogram Abdomen wwo Contrast (06/05/2022 [...] who have questions please contact the health health care marketing specialist that requested your imaging first. ? Electronically signed by: Ramakrishna Vieyra MD, [facility] ([phone]), at 06/06/2022 10:11 AM Narrative 06/06/2022 10:11 [...] patients who have questions please contactthe health health care marketing specialist that requested your imaging first. Electronically signed by: Ramakrishna Vieyra MD, [facility]([phone]), at 06/06/2022 10:11 AM Billie Dagmar Yao [facility] MRI ORDERABLES documented in this encounter [...] imaging of other abdominal regions, including retroperitoneum Ilioinguinal neuralgia of left side Arthralgia of [...] retroperitoneum documented in this encounter Care Teams Chronometer Assembler And Adjuster Relationship Specialty Start Date End Date Donte Padgett MD [address] [facility] [address] [place] [address] PCP - General Family Medicine 08/24/15 documented as of this encounter
--- OUTSIDE RECORDS SUMMARY | 2024-03-04 16:56 | XMS_ITS | Encounter Summary ---
Author Organization [facility] [place] [address] Care Team Providers Care Floor Coverer Name Role Phone Donte Padgett MD Primary Care Provider [phone] Reason for Referral * Diagnostic Test (Routine) - Closed Specialty Diagnoses / Procedures Referred By Contac t Referred To Contact Radiology Diagnoses Chronic left lower quadrant pain Procedures MRI Thoracic Spine wo Contrast (Generic) Yue Darby MD [facility] [address] [facility]OSPICE [place] [address] [place] [address] Referral ID Status Reason Start Date Expiration Date V isits Requested Visits Authorized [id number] Closed Specialty Service Requested 09/20/2021 03/23/2023 1 1 Reason for Visit * Diagnostic Test (Routine) - Closed Specialty Diagnoses / Procedures Referred By Contac t Referred To Contact Radiology Diagnoses Chronic left lower quadrant pain Procedures MRI Thoracic Spine wo Contrast (Generic) Yue Darby MD [facility] [place] [address] [place] [address] Referral ID Status Reason Start Date Expiration Date V isits Requested Visits Authorized [id number] Closed Specialty Service Requested 09/20/2021 03/23/2023 1 1 Encounter Details Date Type Department Care Team (Late st Contact Info) Description 10/28/2021 4:15 PM EDT - 10/28/2021 11:59 PM EDT Hospital Encounter MRI at [facility] [place] [address] Yue Darby MD [facility] [place] [address] Chronic left lower quadrant pain Discharge Disposition: Home Social History Tobacco Use [...] as needed. Prn heartburn, takes 2-3 x/week HYDROcodone-acetaminop hen (Valdez) 5-325 mg Tablet Take 1 tablet by mouth 4 times daily. Dose increased from 1 tablet 3 times daily 120 tablet 10/11/2021 11/11/2021 DULoxetine (Cymbalta) 30 mg Capsule, Delayed Release(E.C.)Indicatio ns:Abdominal [...] Pain. 03/14/2022 documented as of this encounter Plan of Treatment Upcoming Encounters Date Type Department Care Team (Late st Contact Info) Description 03/17/2024 2:00 PM EDT TH Visit (TeleHealth) [place] [phone] Yue Darby MD [facility] [place] [address] 04/12/2024 11:30 AM EDT [place] [phone] Yue Darby MD [facility] [place] [address] 04/28/2024 8:30 AM EDT TH Visit (TeleHealth) [place] [phone] Yue Darby MD [facility] [place] [address] documented as of this encounter Procedures Procedure Name Priority Date/Time Associated Diagnosis Comments MRI THORACIC SPINE WITHOUT CONTRAST Routine 10/28/2021 5:08 PM EDT Chronic left lower quadrant pain documented in this encounter Results * MRI Thoracic Spine [...] questions please contact the health personal care assistant that requested your imaging first. ? Electronically signed by: Ezequiel Landaverde MD, [facility] ([phone]), at 10/29/2021 12:35 PM Narrative 10/29/2021 12:35 [...] performed on 09/02/2015 FINDINGS: Evaluation of the beer still runner compounder view shows previous cervical fusion at the [...] performed on 09/02/2015 FINDINGS: Evaluation of the beer still runner compounder view shows previous cervical fusion at the [...] have questions please contactthe health personal care assistant that requested your imaging first. Electronically signed by: Ezequiel Landaverde MD, [facility]([phone]), at 10/29/2021 12:35 PM Yue Darby MD IMG MRI ORDERABLES documented in this encounter Visit Diagnoses Diagnosis Chronic left lower quadrant pain Abdominal pain, left lower quadrant documented in this encounter Care Teams Floor Coverer Relationship Specialty Start Date End Date Donte Padgett MD [address] [place] [address] PCP - General Family Medicine 08/24/15 documented as of this encounter
--- OUTSIDE RECORDS SUMMARY | 2024-03-04 16:56 | XMS_ITS | Encounter Summary ---
Author Organization [facility] Address [facility] [place] [address] Care Team Providers Care Peoplesoft Name Role Phone Donte Padgett MD Primary Care Provider [phone] Encounter Details Date Type Department Care Team (Late st Contact Info) Description 05/23/2022 [place] [phone] Yue Darby MD [facility] [address] HOSPICE [place] [address] Social History Tobacco Use Types Packs/Day Years [...] Telephone Encounter - Yue Darby MD - 05/23/2022 3:58 PM EST Brief Physical Medicine & Rehab Telephone Encounter Call received from patient re: BLANCHE paperwork. Paperwork completed and placed in outgoing mail 05/23/2022. Aly trialed the 15 mcg/hr Butrans patch for about 2 weeks but continued to have nausea so did notreplace the patch last week. He is still taking oxycodone 5 mg four times daily. His oxycodone usage did not change when the Butrans patch was applied. He recalls getting better pain relief with 20 mcg/hr Butrans and inquired as to whether he could trial this dose again along with an anti-emetic. He remains motivated to wean off of the oxycodone if possible. He's not had any changes in his bowel habits, continues to have daily BMs and does not feel constipated. He feels like the combination of baclofen and gabapentin are making him sleepy but prefers not to make any changes to these right now. Plan: -Rx for haloperidol 2 mg (2 mg/ml) oral liquid. Take 2 mg scheduled at bedtime. Can take an additional 2 mg up to twice daily as needed for nausea -Resume buprenorphine 20 mcg/hr TD (okay to start with 15 mcg/hr patch + 5 mcg/hr patches which he has a supply of at home) -Instructed him to update me next week about how the above is going -Continue with current bowel regimen including daily suppositories -Will be starting group therapy in GI clinic 05/26 -Abd XR and MRA pending as per GI recs Yue Darby MD Personal pager #[phone] 05/23/2022 3:58 PM documented in this encounter Plan of Treatment Upcoming Encounters Date Type Department Care Team (Late st Contact Info) Description 03/17/2024 2:00 PM EDT TH Visit (TeleHealth) [place] [address] Yue Darby MD [facility] [place] [address] 04/12/2024 11:30 AM EDT [place] [address] Yue Darby MD [facility] [place] [address] 04/28/2024 8:30 AM EDT TH Visit (TeleHealth) [place] [address] Yue Darby MD [facility] [address] HOSPICE [place] [address] documented as of this encounter Visit Diagnoses Not on filedocumented in this encounter Care Teams Peoplesoft Relationship Specialty Start Date End Date Donte Padgett MD [address] [place] [address] PCP - General Family Medicine 08/24/15 documented as of this encounter
--- OUTSIDE RECORDS SUMMARY | 2024-03-04 16:56 | XMS_ITS | Encounter Summary ---
Author Organization [facility] Address [facility] [place] [address] Care Team Providers Care Income Tax Adjuster Name Role Phone Donte Padgett MD Primary Care Provider [phone] [phone] Encounter Details Date Type Department Care Team (Late st Contact Info) Description 03/14/2022 10:30 AM EDT TH Visit (TeleHealth) [place] [address] Yue Darby MD [facility] DR HOSPICE [place] [address] Spasticity; Chronic left lower quadrant pain Social History [...] Progress Notes * Yue Darby MD - 03/14/2022 10:30 AM EDT Rehabilitation Medicine Follow-up Note [...] a clinic office visit. Subjective Interval History: Last seen by me via on 02/11/22. Since that time, Aly has been able to go to work, but has had harder days. 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 Pain continues to be localized to the LLQ (the entire quadrant but difficult to localize beyond that due to SCI). It only improves when helaying down or reclined. When seated in wheelchair the pain gets worse over time. Always worsens when he eats so he avoids eating all day, first meal is at 6 pm on work days. Not worse if he drinks--he stays hydrated with gatorate and water throughout the day. He feels hungry so usually eats a pretty big meal for dinner. After dinner the pain lasts 2-3 hours. Usually waits about an hour after he eats to digest then lays down. Bowel routine on work days occurs usually between 11-11:30am, a little later on weekends or days off. The pain doesn't seem to get worse during the program but is bad for 30-60 minutes afterward. He is using both a suppository and dig stim daily. He feels the suppository helps him empty more completely. He wonders if there is any prescription available for gas relief. He's tried Gas-X, several over the counter gas medications without improvement. When leaning back in recliner he hears gurgling/sloshing around. Eating bread in the morning prior to his bowel program makes the pain terrible. He'stried cutting out meat and didn't notice any difference either way. When the pain first started years ago he cut out gluten entirely and didn't notice a difference with this either. Functional Status as of 03/14/22 Kev for mobility in manual WC, ADLs, iADLs. Drives. Past Medical History: No past medical history on file. Past Surgical History: Past Surgical History: Procedure Laterality Date ??? PRG UNLISTED DIAGNOSTIC GASTROENTEROLOGY PROCEDURE N/A 12/11/2015 VIDEO CAPSULE ENDOSCOPY performed by Lance Pandya MD at [facility] ENDOSCOPY ??? PRO COLONOSCOPY, DIAGNOSTIC N/A 10/18/2015 COLONOSCOPY, DIAGNOSTIC performed by Seth Yeh MD at [facility] ENDOSCOPY ? ? PRO INJECTION ANES AGENT &/ STEROID ILIOINGUINAL IH NERVES Left 11/27/2021 INJECTION ANESTHETIC, ILIOINGUINAL, ILIOHYPOGASTRIC (WRVU 1.75) performed by Mika East MD [facility] PAIN [facility] ??? PRO UPPER GI ENDOSCOPY, BIOPSY N/A 10/18/2015 EGD WITH BIOPSY performed by Seth Yeh MD at [facility] ENDOSCOPY Medications: Current Outpatient Medications on File Prior to Visit Medication Sig Dispense Refill ??? oxyCODONE (Roxicodone) 5 mg Tablet Take 1 tablet by mouth every 6 hours as needed for Pain. 120tablet 0 ??? naloxone (Narcan) 4 mg/actuation [place], Non-Aerosol 1 each by Nasal route as needed (respiratory depression from opioid overdose). 2 each 3 ??? buprenorphine (Butrans) 5 mcg/hour Patch Weekly Change 1 patch on the skin every 7 days. 4 patch 0 ??? baclofen (Lioresal) 10 mg Tablet Take 1 tablet by mouth 3 times daily. 90 tablet 3 ??? bisacodyL (Dulcolax) [address] 1 suppository rectally daily. 60 suppository 3 ??? HYDROcodone-acetaminophen ([place]) 5-325 mg Tablet Take 1 tablet by mouth 4 times daily. Dose increased from 1 tablet 3 times daily 120 tablet 0 ??? Ibuprofen 200 mg Capsule Take by mouth. ??? DULoxetine DR (Cymbalta) 30 mg Capsule, Delayed Release(E.C.) Take 1 capsule by mouth daily. Increase to 1 capsule TWICE daily after 1 week. (Patient taking differently: Take 30 mg by mouth 2 times daily.) 60 tablet 3 ??? ferrous sulfate 325 mg [...] Physical Exam: Gen: seated in manual WC, NAD HEENT: normocephalic, mucous membranes moist, sclera anicteric, pupils equal Resp: breathing comfortably on room air, no use of accessory muscles Neuro: awake, alert, face symmetric, speech fluet Psych: pleasant, conversant, not overtly anxious Data Review Labs: Hgb 9.6, MCV 65 Imaging: The below studies were personally reviewed. Results have previously been discussed with patient. CT Abd/Pelvis with contrast 02/24/2022: FINDINGS: Lower [...] thoracic spine 10/28/2021: FINDINGS: Evaluation of the label press operator view shows previous cervical fusion at the [...] disease Opioid Risk Category: low -PDMP reviewed 03/14/2022 -Opioid treatment agreement to be signed (mailed to patient 03/14/2022) -Monthly visits -Naloxone prescribed 03/14/2022 -Annual random UDS (ordered, will be collected when pt comes for GI visit) Assessment/Plan Assessment: 31 y.o. 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 At this point he's had an extensive work-up for longstanding left lower quadrant pain, considering potential GI and musculoskeletal etiologies, as well as genitourinary causes. This pain is significantly impacting his quality of life and function. He has evidence of neurogenic bladder with wall thickening on ultrasound but no renal calculi or other potential factors which would be the cause of his pain. There has been no improvement with Botoxinjections to the psoas nor the recent ilioinguinal nerve injection. While the focal nature of his chief complaint (pain) is not consistent with typical SCI-related spasticity, we are trialing oral baclofen to see if his symptoms improve. He has tolerated this medication well in the past and we discussed up-titrating today. He has been on chronic opioids for several years now for this pain which is not ideal in the setting of his neurogenic bowel. I have prescribed a buprenorphine patch which he is a good candidate for in the setting of his low daily OME (<30 po morphine equivalents daily)and desired potential for lower risk of constipation. He understands the need to adjust his bowel stimulants to ensure he has full evacuation with his daily bowel routine. The temporal relationship of his pain following any food intake or bowel evacuation remains suspicious for GI origin, yet extensive GI work-up has been unrevealing thus far. He has had no improvementwith a trial of dicyclomine for bowel spasms. I have referred back to GI for additional input. Recommendations: #SCI-related spasticity -INCREASE baclofen to 15 mg three times daily x 1 week; after one week, if tolerating well without oversedation, increase to 20 mg three times daily -Consider referral for IT baclofen pump; might benefit from addition of analgesics to the pump as well #Left lower quadrant pain, worse with eating -Referral to GI motility clinic; consider promotility agent pending their thoughts -Abdominal/pelvic CT unrevealing; stool burden minimal -Oxycodone 5 mg q6h prn (rotated from hydrocodone-APAP 03/14; avoiding acetaminophen due to liver abnormalities seen on CT) -Butrans (buprenorphine) TD 5 mcg/hr weekly patch (awaiting prior auth) -[place] opioid prescribing guidelines #Risk of opioid-induced constipation #Neurogenic bowel -Continue daily Miralax and dulcolax suppositories/dig stim for bowel program Yue Darby MD Physical Medicine & Rehabilitation Department of Neurology Follow-up: 6 weeks after GI appointment (telehealth okay) This was a 40 minute visit spent in counseling the patient and in reviewing the above imaging and diagnostic studies. documented in this encounter Plan of Treatment Upcoming Encounters Date Type Department Care Team (Late st Contact Info) Description 03/17/2024 2:00 PM EDT TH Visit (TeleHealth) [place] [address] Yue Darby MD [facility] DR HOSPICE [place] [address] 04/12/2024 11:30 AM EDT [place] [address] Yue Darby MD [facility] DR HOSPICE [place] [address] 04/28/2024 8:30 AM EDT TH Visit (TeleHealth) [place] [address] Yue Darby MD [facility] HOSPICE [place] [address] documented as of this encounter Visit Diagnoses Diagnosis Spasticity Abnormal involuntary movements Chronic left lower quadrant pain Abdominal pain, left lower quadrant documented in this encounter Care Teams Income Tax Adjuster Relationship Specialty Start Date End Date Donte Padgett MD [address] [facility] [address] [place] [address] PCP - General Family Medicine 08/24/15 documented as of this encounter
--- OUTSIDE RECORDS SUMMARY | 2024-03-04 16:56 | XMS_ITS | Encounter Summary ---
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, subsequent encounter Arthralgia of lower leg, unspecified laterality Visceral hypersensitivity syndrome Neurogenic bladder Chronic left hip pain Paraplegia Abdominal pain, chronic, left lower quadrant Milady Gotti APRN [facility] [place] [address] [facility] [place] [address] Referral ID Status Reason Start Date Expiration Date Visits Requested Visits Authorized [id number] Duplicate Referral Consult, Test & Treat 05/07/2022 05/07/2023 1 1 Encounter Details Date Type Department Care Team (Late st Contact Info) Description 05/07/2022 Orders [place] [address] Milady Gotti APRN [facility] [place] [address] Ilioinguinal neuralgia of left side; Irritable bowel syndrome, unspecified type; Neurogenic bowel; 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, subsequent encounter; Arthralgia of lower leg, unspecified laterality; Visceral hypersensitivity syndrome; Neurogenic bladder; Chronic left hip pain; Paraplegia; Abdominal pain, chronic, left lower quadrant Social [...] PM EDT TH Visit (TeleHealth) Neurology at [place] [id number] Yue Darby MD [facility] DR HOSPICE AND [place] [address] 04/12/2024 11:30 AM EDT [place] [address] Yue Darby MD [facility] DR HOSPICE AND [place] [address] 04/28/2024 8:30 AM EDT TH Visit (TeleHealth) [place] [address] Yue Darby MD [facility] HOSPICE AND [place] [address] Scheduled Referrals Name Type Priority Associated Diagnoses Orde r Schedule Referral to Pain Management Outpatient Referral Routine Ilioinguinal neuralgia of left side Irritable bowel syndrome, unspecified type Neurogenic bowel 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, subsequent encounter Arthralgia of lower leg, unspecified laterality Visceral hypersensitivity syndrome Neurogenic bladder Chronic left hip pain Paraplegia Abdominal pain, chronic, left lower quadrant Ordered: 05/07/2022 documented as of this encounter Visit Diagnoses Diagnosis Ilioinguinal neuralgia of left side Irritable bowel syndrome, unspecified type Neurogenic bowel 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
--- OUTSIDE RECORDS SUMMARY | 2024-03-04 16:56 | XMS_ITS | Encounter Summary ---
Author Organization [facility] Address [facility] [place] [address] Care Team Providers Care Revenue Enforcement Collection Agent Name Role Phone Donte Padgett MD Primary Care Provider [phone] [phone] Encounter Details Date Type Department Care Team (Late st Contact Info) Description 11/26/2021 Telephone [facility] [place] [address] Su Salvador, RN Social History Tobacco Use Types Packs/Day Years [...] encounter Miscellaneous Notes * Telephone Encounter - Su Salvador, RN - 11/26/2021 10:27 AM EDT Contact made with patient or professional healthcare representative as identified in contacts 1. 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 Please plan to spend about 2 hours at the center. (3 hours for RFA) 2. Has pt started any new medications or supplements in the past two weeks? No 3. Have any of the following occurred within the two weeks before the procedure date? a. Patient is having a Covid vaccine or other vaccine No b. Patient has been exposed to anybody with a contagious illness such as Covid, flu, No c. Patient is taking antibiotics to treat an infection No d. Patient has any skin rashes, breakdown, blisters or open wounds No e. Patient has had any hospitalizations, ED visits, surgery, other procedure, dental procedure No f. Patient has taken oral steroids or had a steroid injection No g. Does patient have any of the following symptoms that are NEW and NOT explained by another healthcondition: fever or chills, cough, shortness of breath or difficulty breathing, fatigue, muscle or body aches, headache, new loss of taste or smell, sore throat, congestion or runny nose, nausea or vo miting, diarrhea. No If yes, the patient has been directed to the covid hotline for testing prior to their procedure. (route telephone note to: [facility] covid 19 nurse triage with routing comment stating pt needs covid test prior to procedure and give date of procedure, add name and MRN to tracking tool). h. Has the patient's pain resolved or significantly improved such as a rating of 3/10 or less? No 4. Was patient instructed to stop any medications? No if yes: a. Name of medication(s): b. Confirm date of last dose: 5. Is patient having a nerve block: Yes a. If yes instructed to not take any pain medication for 12 hours before your procedure. 6. Patient instructed to take any prescribed medications that they were not told to stop, especially blood pressure medication, because their procedure may be cancelled if their blood pressure is toohigh. 7. Was patient instructed to follow NPO guidelines: No if yes, the following instructions were reviewed: a. You may eat up to 6 hours before your procedure b. You may have clear liquids only up to 2 hours before your procedure: water, apple juice, oscar andriy, sprite, popsicles, broth, tea or coffee plain or with sweetener, absolutely no dairy products, no milk including soy, oat, almond. 8. IF RFA: Does patient have a pacemaker? No a. If yes, document that cardiology was called and notified. 9. Additional notes if applicable: Patient expressed understanding and agreement with instructions Yes Patient denies further questions Yes documented in this encounter Plan of Treatment Upcoming Encounters Date Type Department Care Team (Late st Contact Info) Description 03/17/2024 2:00 PM EDT TH Visit (TeleHealth) [place] [address] Yue Darby MD [facility] HOSPICE AND PALLIATIVE [place] [address] 04/12/2024 11:30 AM EDT [place] [address] Yue Darby MD [facility] HOSPICE AND PALLIATIVE [place] [address] 04/28/2024 8:30 AM EDT TH Visit (TeleHealth) [place] [address] Yue Darby MD [facility] HOSPICE AND PALLIATIVE [place] [address] documented as of this encounter Visit Diagnoses Not on filedocumented in this encounter Care Teams Revenue Enforcement Collection Agent Relationship Specialty Start Date End Date Donte Padgett MD [address] [facility] [address] [place] [address] PCP - General Family Medicine 08/24/15 documented as of this encounter
--- OUTSIDE RECORDS SUMMARY | 2024-03-04 16:56 | XMS_ITS | Encounter Summary ---
Author Organization [facility] Address [facility] [place] [address] Care Team Providers Care Vacuum Drier Tender Name Role Phone Donte Padgett MD Primary Care Provider [phone] Reason for Visit * Reason Onset Date Comments Medication Refill 09/12/2021 Encounter Details Date Type Department Care Team (Late st Contact Info) Description 09/12/2021 [place] [address] Cesar Fuentes MD [facility] [address] Social History Tobacco Use Types Packs/Day Years [...] Telephone Encounter - Leia Alvarez CMA - 09/12/2021 2:17 PM EST Surescript request for : hydrocodone Last rx: 08/12/21 Quantity: 120 Refills: 0 Last appt: 08/27/21 Next appt: documented in this encounter Plan of Treatment Upcoming Encounters Date Type Department Care Team (Late st Contact Info) Description 03/17/2024 2:00 PM EDT TH Visit (TeleHealth) [place] [address] Yue Darby MD [facility] HOSPICE AND [place] [address] 04/12/2024 11:30 AM EDT Office [place] [address] Yue Darby MD [facility] HOSPICE AND [place] [address] 04/28/2024 8:30 AM EDT TH Visit (TeleHealth) [place] [address] Yue Darby MD [facility] HOSPICE AND [place] [address] documented as of this encounter Visit Diagnoses Not on filedocumented in this encounter Care Teams Vacuum Drier Tender Relationship Specialty Start Date End Date Donte Padgett MD [address] [place] [address] [address] [facility] 1 [place] [address] PCP - General Family Medicine 08/24/15 documented as of this encounter
--- OUTSIDE RECORDS SUMMARY | 2024-03-04 16:56 | XMS_ITS | Encounter Summary ---
Author Organization [facility] Address [facility] [place] [address] Care Team Providers Care Library Monitor Name Role Phone Donte Padgtet MD Primary Care Provider [phone] [phone] Reason for Visit * Reason Onset Date Comments Medication Refill 02/11/2022 Encounter Details Date Type Department Care Team (Late st Contact Info) Description 02/11/2022 [place] [address] Cesar Fuentes MD [facility] [place] [address] Social History Tobacco Use Types Packs/Day Years [...] PM EDT TH Visit (TeleHealth) [place] [address] Yue Darby MD [facility] HOSPICE AND [place] [address] 04/12/2024 11:30 AM EDT Office [place] [address] Yue Darby MD [facility] HOSPICE AND [place] [address] 04/28/2024 8:30 AM EDT TH Visit (TeleHealth) [place] [address] Yue Darby MD [facility] HOSPICE AND [place] [address] documented as of this encounter Visit Diagnoses Not on filedocumented in this encounter Care Teams Library Monitor Relationship Specialty Start Date End Date Donte Padgett MD [address] [place] [address] PCP - General Family Medicine 08/24/15 documented as of this encounter
--- OUTSIDE RECORDS SUMMARY | 2024-03-04 16:56 | XMS_ITS | Encounter Summary ---
Author Organization [facility] Address [facility] [place] [address] Care Team Providers Care Heat Treat Puller Name Role Phone Donte Padgett MD Primary Care Provider [phone] Encounter Details Date Type Department Care Team (Late st Contact Info) Description 03/13/2022 Orders [place] [address] Yue Darby MD [facility] HOSPICE AND [place] [address] Social History Tobacco Use Types Packs/Day Years [...] PM EDT TH Visit (TeleHealth) [place] [address] uYe Darby MD [facility] HOSPICE AND [place] [address] 04/12/2024 11:30 AM EDT [place] [address] Yue Darby MD [facility] HOSPICE AND [place] [address] 04/28/2024 8:30 AM EDT TH Visit (TeleHealth) [place] [address] Yue Darby MD [facility] HOSPICE AND [place] [address] documented as of this encounter Visit Diagnoses Not on filedocumented in this encounter Care Teams Heat Treat Puller Relationship Specialty Start Date End Date Donte Padgett MD [address] [place] [address] [address] [place] [address] PCP - General Family Medicine 08/24/15 documented as of this encounter
--- OUTSIDE RECORDS SUMMARY | 2024-03-04 16:56 | XMS_ITS | Encounter Summary ---
Author Organization [facility] Address [facility] [place] [address] Care Team Providers Care Parole Hearing Officer Name Role Phone Donte Padgett MD Primary Care Provider [phone] Reason for Visit * Reason Onset Date Comments Medication Refill 10/11/2021 Encounter Details Date Type Department Care Team (Late st Contact Info) Description 10/11/2021 Ref[place] [address] Cesar Funetes MD [facility] [place] [address] Social History Tobacco Use Types Packs/Day Years [...] PM EDT TH Visit (TeleHealth) [place] [address] Yue Darby MD [facility] HOSPICE [place] [address] 04/12/2024 11:30 AM EDT Office [place] [address] Yue Darby MD [facility] HOSPICE [place] [address] 04/28/2024 8:30 AM EDT TH Visit (TeleHealth) [place] [address] Yue Darby MD [facility] HOSPICE [place] [address] documented as of this encounter Visit Diagnoses Not on filedocumented in this encounter Care Teams Parole Hearing Officer Relationship Specialty Start Date End Date Donte Padgett MD [address] [place] [address] PCP - General Family Medicine 08/24/15 documented as of this encounter
--- OUTSIDE RECORDS SUMMARY | 2024-03-04 16:56 | XMS_ITS | Encounter Summary ---
Author Organization [facility] Address [facility] [place] [address] Care Team Providers Care Manufacturing Lab Technician Name Role Phone Donte Padgett MD Primary Care Provider [phone] [phone] Reason for Visit * Diagnostic Test (Routine) - Closed Specialty Diagnoses / Procedures Referred By Contac t Referred To Contact Radiology Diagnoses Chronic left lower quadrant pain Procedures CT Abdomen & Pelvis w Contrast CT Abdomen wwo and Pelvis w Contrast Yue Darby MD [facility] HOSPICE AND [place] [address] [facility] [address] Referral ID Status Reason Start Date Expiration Date V isits Requested Visits Authorized [id number] Closed Specialty Service Requested 02/11/2022 08/14/2023 1 1 Encounter Details Date Type Department Care Team (Late st Contact Info) Description 02/24/2022 2:42 PM EDT - 02/24/2022 11:59 PM EDT Hospital [place] [address] Yue Darby MD [facility] HOSPICE AND [place] [address] Chronic left lower quadrant pain Discharge Disposition: [...] as needed. Prn heartburn, takes 2-3 x/week baclofen (Lioresal) 10 mg TabletIndications:S pasticity Take 1 tablet by mouth 3 times daily. 90 tablet 3 02/11/2022 03/14/2022 bisacodyL (Dulcolax) 10 mg SuppositoryIndicati ons:Neurogenic bowel Place 1 suppository rectally daily. 60 suppository 3 02/11/2022 01/30/2023 HYDROcodone-acetami nophen ([place]) 5-325 mg Tablet Take 1 tablet by mouth 4 times daily. Dose increased from 1 tablet 3 times daily 120 tablet 02/11/2022 03/14/2022 Ibuprofen 200 mg Capsule Take by mouth. 03/14/[address] (Cymbalta) 30 mg Capsule, Delayed Release(E.C.)Indica tions:Abdominal pain, chronic, left lower quadrant Take 1 capsule by mouth daily. Increase to 1 capsule TWICE daily after 1 week. 60 tablet 3 09/12/2021 03/14/2022 ferrous sulfate 325 mg (65 mg iron) [...] PM EDT TH Visit (TeleHealth) [place] [address] Yue Darby MD [facility]OS[facility]ICE [facility] [place] [address] 04/12/2024 11:30 AM EDT [place] [address] Yue Darby MD [facility] [place] [address] 04/28/2024 8:30 AM EDT TH Visit (TeleHealth) Neurology at [facility] [place] [address] Yue Darby MD [facility] [place] [address] documented as of this encounter Procedures Procedure Name Priority Date/Time Associated Diagnosis Comments CT ABDOMEN AND PELVIS W CONTRAST Routine 02/24/2022 4:57 PM EDT Chronic left lower quadrant pain documented in this encounter Results * CT Abdomen & Pelvis w Contrast (02/24/2022 4:57 PM EDT) Anatomical Region Laterality Modality Abdomen, Pelvis Computed Tomogra phy 02/24/2022 5:16 PM EDT Impressions 02/25/2022 10:48 AM EDT 1. ??No acute pathology identified in the abdomen or pelvis. 2. ??Hepatomegaly with hepatic steatosis. 3. ??Mild mixed calcified and noncalcified atheromatous disease of the infrarenal abdominal aorta. I have personally reviewed the image(s) and the resident's interpretation and agree with the findings, Efraín Carrington MD at 02/25/2022 10:48 AM Thank you for letting us participate in the care of this patient. ??If you are a health care provider and have any questions regarding this report, please contact the number below. ??For patients who have questions please contact the health care assistant that requested your imaging first. ? Narrative 02/25/2022 10:48 AM EDT EXAMINATION: CT ABDOMEN AND PELVIS W CONTRAST CLINICAL HISTORY: 31 yo M with SCI and chronic LLQ sharp, burning pain; r/o intra-abdominal pathology 31yo M with SCI chronic LLQ sharp burning pain, r/o intra-abdominal pathology TECHNIQUE: Helical CT of the abdomen and pelvis was performed following the intravenous administration of contrast. Administered 114.0 ml of OMNIPAQUE 350.00 mg/ml. Oral contrast was administered. COMPARISON: MR enterography 08/24/2015; renal and bladder ultrasound 07/23/2021 FINDINGS: Lower chest: Normal. Liver: Enlarged measuring [...] organs: Normal. Osseous structures: No suspicious lesions. Procedure Note Efraín Carrington MD - 02/25/2022 EXAMINATION: CT ABDOMEN AND PELVIS W CONTRAST CLINICAL HISTORY: 31 yo M with SCI and chronic LLQ sharp, burning pain;r/o intra-abdominal pathology 31yo M with SCI chronic LLQ sharp burning pain, r/o intra-abdominalpathology TECHNIQUE: Helical CT of the abdomen and pelvis was performed followingthe intravenous administration of contrast. Administered 114.0 ml ofOMNIPAQUE 350.00 mg/ml. Oral contrast was administered. COMPARISON: MR enterography 08/24/2015; renal and bladder ultrasound07/23/2021 FINDINGS: Lower chest: Normal. Liver: Enlarged measuring 20 cm in craniocaudal dimension. Diffusely lowin attenuation relative to the spleen consistent with hepatic steatosis.Focal fatty sparing along the gallbladder fossa. Bile ducts: Nondilated. Gallbladder: No calcified gallstones. Normal caliber wall. Pancreas: Normal attenuation without ductal dilatation. Spleen: Normal. Adrenals: Normal. Kidneys: Symmetric size and enhancement. No hydronephrosis. Urinary Bladder: Circumferential bladder wall thickening with shaggyappearance consistent with history of neurogenic bladder in the medical record. Vasculature: Mild mixed calcified and noncalcified atheromatous disease ofthe infrarenal abdominal aorta. Lymph Nodes: No enlarged lymph nodes. Bowel: Nondilated, no wall thickening. Normal appendix and terminalileum. Peritoneum and mesentery: No ascites, free air, or loculated fluidcollection. No mesenteric inflammation. Abdominal wall: Normal. Reproductive organs: Normal. Osseous structures: No suspicious lesions. IMPRESSION 1. No acute pathology identified in the abdomen or pelvis. 2. Hepatomegaly with hepatic steatosis. 3. Mild mixed calcified and noncalcified atheromatous disease of theinfrarenal abdominal aorta. I have personally reviewed the image(s) and the resident's interpretationand agree with the findings, Efraín Carrington MD at 02/25/2022 10:48 AM Thank you for letting us participate in the care of this patient. If youare a health care provider and have any questions regarding this report,please contact the number below. For patients who have questions please contactthe health care assistant that requested your imaging first. Yue Darby MD IMG CT ORDERABLES documented in this encounter Visit Diagnoses Diagnosis Chronic left lower quadrant pain Abdominal pain, left lower quadrant documented in this encounter Administered Medications Inactive Administered Medications - up to 3 most recent administrations Medication Order MAR Action Action Date Dose Rate Site barium sulfate (Readi-Cat) 2.0 % (w/v) oral liquid 450-900 mL 450-900 mL, Oral, ONCE PRN, 1 dose, Starting on Thu02/24/22 at 1643, Until Thu02/24/22 at 1650, Per Protocol, Radiology Contrast, Routine Given 02/24/2022 4:50 PM EDT 900 mLs iohexoL (Omnipaque) (350 mg/mL) solution 0-200 mL 0-200 mL, Intravenous, ONCE PRN, 1 dose, Starting on Thu02/24/22 at 1643, Until Thu02/24/22 at 1657, Per Protocol, Warning Vesicant/Irritant Medication , Radiology Contrast, Routine Given 02/24/2022 4:57 PM EDT 117 mLs documented in this encounter Care Teams Manufacturing Lab Technician Relationship Specialty Start Date End Date Donte Padgett MD [address] [place] [address] PCP - General Family Medicine 08/24/15 documented as of this encounter
--- OUTSIDE RECORDS SUMMARY | 2024-03-04 16:56 | XMS_ITS | Encounter Summary ---
Author Organization [facility] Address [facility] [place] [address] Care Team Providers Care Pleater Hand Name Role Phone Donte Padgett MD Primary Care Provider [phone] [phone] Reason for Visit * Reason Onset Date Comments Medication Refill 08/12/2021 Encounter Details Date Type Department Care Team (Late st Contact Info) Description 08/12/2021 [place] [address] Cesar Fuentes MD [facility] [place] [address] Social History Tobacco Use Types Packs/Day Years [...] Telephone Encounter - Leia Alvarez CMA - 08/12/2021 4:57 PM EST Surescript request for : hydrocodone Last rx: 07/15/21 Quantity: 120 Refills: 0 Last appt: 07/30/21 Next appt: 08/27/21 documented in this encounter Plan of Treatment Upcoming Encounters Date Type Department Care Team (Late st Contact Info) Description 03/17/2024 2:00 PM EDT TH Visit (TeleHealth) [place] [address] Yue Darby MD [facility] HOSPICE AND [place] [address] 04/12/2024 11:30 AM EDT [place] [address] Yue Darby MD [facility] HOSPICE AND [place] [address] 04/28/2024 8:30 AM EDT TH Visit (TeleHealth) [place] [address] Yue Darby MD [facility] HOSPICE AND [place] [address] documented as of this encounter Visit Diagnoses Not on filedocumented in this encounter Care Teams Pleater Hand Relationship Specialty Start Date End Date Donte Padgett MD [address] [facility] 1 [place] [address] PCP - General Family Medicine 08/24/15 documented as of this encounter
--- OUTSIDE RECORDS SUMMARY | 2024-03-04 16:56 | XMS_ITS | Encounter Summary ---
Author Organization [facility] [place] [address] Care Team Providers Care Welder 2Nd Shift Name Role Phone Donte Padgett MD Primary Care Provider [phone] [phone] Encounter Details Date Type Department Care Team (Late st Contact Info) Description 03/13/2022 [place] [address] Yue Darby MD [facility] HOSPICE AND [place] [address] Social History Tobacco Use Types Packs/Day Years [...] Telephone Encounter - Rupinder Jackson RN - 03/13/2022 3:26 PM EDT Copied from CRM #[id number]. Topic: Specialty Dept CRMs - Generic Call >> Mar 13, 2022 3:13 PM Elbert Santo wrote: Specialist: Yue Darby Relationship (if other than patient-full name): Aly De La Torre Pt Reason for Call: Aly De La Torre Pt, stated he is returning a call to Dr Darby (please see closed encounter dated today, 03/13/2022) and can be reached at [phone] anytime now, as he is back in service. documented in this encounter Plan of Treatment Upcoming Encounters Date Type Department Care Team (Late st Contact Info) Description 03/17/2024 2:00 PM EDT TH Visit (TeleHealth) [place] [address] Yue Darby MD [facility] DR HOSPICE AND [place] [address] 04/12/2024 11:30 AM EDT [place] [address] Yue Darby MD [facility] HOSPICE AND [place] [address] 04/28/2024 8:30 AM EDT TH Visit (TeleHealth) [place] [address] Yue Darby MD [facility] [address] HOSPICE AND [place] [address] documented as of this encounter Visit Diagnoses Not on filedocumented in this encounter Care Teams Welder 2Nd Shift Relationship Specialty Start Date End Date Donte Padgett MD [address] [place] [address] [address] [facility] 1 [place] [address] PCP - General Family Medicine 08/24/15 documented as of this encounter
--- OUTSIDE RECORDS SUMMARY | 2024-03-04 16:56 | XMS_ITS | Encounter Summary ---
Author Organization [facility] Address [facility] [place] [address] Care Team Providers Care Hip Hop Artist Name Role Phone Donte Padgett MD Primary Care Provider [phone] [phone] Reason for Visit * Reason Onset Date Comments Medication Refill 12/09/2021 Encounter Details Date Type Department Care Team (Late st Contact Info) Description 12/09/2021 Refill [place] [address] Cesar Fuentes MD [facility] [place] [address] Social History Tobacco Use Types Packs/Day Years [...] Telephone Encounter - Leia Alvarez CMA - 12/09/2021 2:28 PM EDT LF 11/11/21 LV 08/27/21 documented in this encounter Plan of Treatment Upcoming Encounters Date Type Department Care Team (Late st Contact Info) Description 03/17/2024 2:00 PM EDT TH Visit (TeleHealth) [place] [address] Yue Darby MD [facility] HOSPICE [place] [address] 04/12/2024 11:30 AM EDT Office Visit [place] [address] Yue Darby MD [facility] HOSPICE [place] [address] 04/28/2024 8:30 AM EDT TH Visit (TeleHealth) [place] [address] Yue Darby MD [facility] HOSPICE [place] [address] documented as of this encounter Visit Diagnoses Not on filedocumented in this encounter Care Teams Hip Hop Artist Relationship Specialty Start Date End Date Donte Padgett MD [address] [place] [address] PCP - General Family Medicine 08/24/15 documented as of this encounter
--- OUTSIDE RECORDS SUMMARY | 2024-03-04 16:56 | XMS_ITS | Encounter Summary ---
Author Organization [facility] Address [facility] [place] [address] Care Team Providers Care Assistant Spa Manager Name Role Phone Donte Padgett MD Primary Care Provider [phone] [phone] Encounter Details Date Type Department Care Team (Late st Contact Info) Description 05/26/2022 Telephone [place] [address] Noris Redmond Social History Tobacco [...] * Telephone Encounter - Noris Redmond - 05/26/2022 11:08 AM EST Left Message. Today's session of the Chronic Pain group has been cancelled. It will start next weekon 06/02 at 4 pm instead. We need to add an additional session on to compensate. The new session will on 06/23 at either 4 pm or 5 pm whichever he prefers. Please message Sejal or Britt which one wishes to attend documented in this encounter Plan of Treatment Upcoming Encounters Date Type Department Care Team (Late st Contact Info) Description 03/17/2024 2:00 PM EDT TH Visit (TeleHealth) [place] [address] Yue Darby MD [facility] HOSPICE AND P[place]IATIVE [place] [address] 04/12/2024 11:30 AM EDT Office [place] [address] Yue Darby MD [facility] HOSPICE AND P[place]IAT[place] [address] 04/28/2024 8:30 AM EDT TH Visit (TeleHealth) [place] [address] Yue Darby MD [facility] HOSPICE AND P[place]IAT[place] [address] documented as of this encounter Visit Diagnoses Not on filedocumented in this encounter Care Teams Assistant Spa Manager Relationship Specialty Start Date End Date Donte Padgett MD [address] [place] [address] PCP - General Family Medicine 08/24/15 documented as of this encounter
--- OUTSIDE RECORDS SUMMARY | 2024-03-04 16:57 | XMS_ITS | Encounter Summary ---
Author Organization [facility] Address [facility] [place] [address] Care Team Providers Care Laboratory Chemical Assistant Name Role Phone Donte Padgett MD Primary Care Provider [phone] [phone] Reason for Visit * Reason Onset Date Comments Medication Refill 07/21/2019 Encounter Details Date Type Department Care Team (Late st Contact Info) Description 07/21/2019 [place] [address] Cesar Fuentes MD [facility] [place] [address] Social History Tobacco Use Types Packs/Day Years [...] PM EDT TH Visit (TeleHealth) [place] [address] Yue Darby MD [facility] HOSPICE AND PALLIATIVE MEDICINE [place], [place] [address] 04/12/2024 11:30 AM EDT Office [place] [address] Yue Darby MD [facility] DR HOSPICE AND [place] [address] 04/28/2024 8:30 AM EDT TH Visit (TeleHealth) [place] [address] Yue Darby MD [facility] HOSPICE AND [place] [address] documented as of this encounter Visit Diagnoses Not on filedocumented in this encounter Care Teams Laboratory Chemical Assistant Relationship Specialty Start Date End Date Donte Padgett MD [address] [place] [address] PCP - General Family Medicine 08/24/15 documented as of this encounter
--- OUTSIDE RECORDS SUMMARY | 2024-03-04 16:57 | XMS_ITS | Encounter Summary ---
Author Organization [facility] Address [facility] [place] [address] Care Team Providers Care Eyeglass Frame Truer Name Role Phone Donte Padgett MD Primary Care Provider [phone] [phone] Reason for Visit * Reason Onset Date Comments Medication Refill 06/14/2020 Encounter Details Date Type Department Care Team (Late st Contact Info) Description 06/14/2020 [place] [address] Cesar Fuentes MD [facility] [place] [address] Social History Tobacco Use Types Packs/Day Years [...] PM EDT TH Visit (TeleHealth) [place] [address] Yue Darby MD [facility] HOSPICE AND PALLIATIVE MEDICINE [place], [place] [address] 04/12/2024 11:30 AM EDT [place] [address] Yue Darby MD [facility] [address] HOSPICE AND [place] [address] 04/28/2024 8:30 AM EDT TH Visit (TeleHealth) [place] [address] Yue Darby MD [facility] HOSPICE AND [place] [address] documented as of this encounter Visit Diagnoses Not on filedocumented in this encounter Care Teams Eyeglass Frame Truer Relationship Specialty Start Date End Date Donte Padgett MD [address] [place] [address] PCP - General Family Medicine 08/24/15 documented as of this encounter
--- OUTSIDE RECORDS SUMMARY | 2024-03-04 16:57 | XMS_ITS | Encounter Summary ---
Author Organization [facility] Address [facility] [place] [address] Care Team Providers Care Control Clerk Name Role Phone Donte Padgett MD Primary Care Provider [phone] [phone] Reason for Visit * Reason Onset Date Comments Medication Refill 10/12/2020 Encounter Details Date Type Department Care Team (Late st Contact Info) Description 10/12/2020 [place] [address] Cesar Fuentes MD [facility] [place] [address] Social History Tobacco Use Types Packs/Day Years [...] PM EDT TH Visit (TeleHealth) [place] [address] Yue Darby MD [facility] HOSPICE AND [place] [address] 04/12/2024 11:30 AM EDT Office [place] [address] Yue Darby MD [facility] HOSPICE [place] [address] 04/28/2024 8:30 AM EDT TH Visit (TeleHealth) [place] [address] Yue Darby MD [facility] HOSPICE [place] [address] documented as of this encounter Visit Diagnoses Not on filedocumented in this encounter Care Teams Control Clerk Relationship Specialty Start Date End Date Donte Padgett MD [address] [place] [address] PCP - General Family Medicine 08/24/15 documented as of this encounter
--- OUTSIDE RECORDS SUMMARY | 2024-03-04 16:57 | XMS_ITS | Encounter Summary ---
Author Organization [facility] Address [facility] [place] [address] Care Team Providers Care Obiee Consultant Name Role Phone Donte Padgett MD Primary Care Provider [phone] Reason for Referral * Consultation (Routine) - Closed Specialty Diagnoses / Procedures Referred By Elfego t Referred To Contact Urology Diagnoses Neurogenic bladder Yue Darby MD [facility] [place] [address] Referral ID Status Reason Start Date Expiration Date V isits Requested Visits Authorized [id number] Closed Consult, Test & Treat 07/30/2021 01/26/2022 1 1 Encounter Details Date Type Department Care Team (Late st Contact Info) Description 07/30/2021 10:00 AM EST TH Visit (TeleHealth) [place] [address] Yue Darby MD [facility] [place] [address] Chronic left lower quadrant pain; Neurogenic bladder Social History Tobacco Use Types [...] * Patient Instructions* Yue Darby MD - 07/30/2021 10:00 AM EST 1. Please message me via [employer] at the end of next week to let me know how the trial of dicyclomine is going. 2. In reviewing your case with one of our GI specialists your anemia was brought to my attention (the last bloodwork I can see done was during a hospitalization at [facility] in 2019). I attempted to call your PCP's office to see if you've had a CBC drawn recently but didn't have luck getting through to them. Can you confirm that your PCP has checked your blood counts (specifically your hemoglobin) rece ntly? documented in this encounter Progress Notes * Yue Darby MD - 07/30/2021 10:00 AM EST Rehabilitation Medicine Follow-up Note Referring [...] a clinic office visit. Subjective Interval History: No significant change in symptoms. Continues to have frequent LLQ pain. Stayed home from work 3 days last week due to pain. Pain is worse when seated, feels better when lying down. Also increases significantly any time he eats and for about 30 minutes following his bowel program. Performs dig stim,does not typically require stool softeners or laxatives. When he does, usually goes to docusate followed by Miralax if needed. He avoids eating during the day, especially when out of the house, because he knows he will experience pain. Many days only eats dinner. Retroperitoneal ultrasound and pelvic/hip x-rays completed here at on 07/23. Functional Status as of 07/30/21 Kev for mobility in manual WC, ADLs, iADLs. Drives. Past Medical History: No past medical history on file. Past Surgical History: Past Surgical History: Procedure Laterality Date ??? PRG UNLISTED DIAGNOSTIC GASTROENTEROLOGY PROCEDURE N/A 12/11/2015 VIDEO CAPSULE ENDOSCOPY performed by Lance Pandya MD at [facility] ENDOSCOPY ??? PRO COLONOSCOPY, DIAGNOSTIC N/A 10/18/2015 COLONOSCOPY, DIAGNOSTIC performed by Seth Yeh MD at [facility] ENDOSCOPY ??? PRO UPPER GI ENDOSCOPY, BIOPSY N/A 10/18/2015 EGD WITH BIOPSY performed by Seth Yeh MD at [facility] ENDOSCOPY Medications: Current Outpatient Medications Medication Instructions ??? acetaminophen (TYLENOL) 500 mg, Oral, 3 TIMES DAILY PRN ??? ferrous sulfate 325 mg (65 mg iron) Tablet 1 tablet, Oral, DAILY ??? HYDROcodone-acetaminophen ([place]) 5-325 mg Tablet 1 tablet, Oral, 4 TIMES DAILY, Dose increasedfrom 1 tablet 3 times daily ??? omeprazole 20 mg, Oral, DAILY Allergies: No Known Allergies ROS: Constitutional: No fever/chills GI: No nausea, vomiting, constipation, diarrhea : Denies difficulty straight cathing (empties bladder q4-6 hrs, does have cues that his bladder is full) Psych: +Anxiety (when pain escalates), +Restlessness, fidgets when pain is bad Neuro: [...] alert, face symmetric, speech fluent Psych: pleasant, conversant, not overtly anxious Data Review Labs: None new; Hgb 9.6, MCV 65 Imaging: The below studies were personally reviewed and results were discussed with patient during today's encounter. Ultrasound retroperitoneal complete 07/23/2021: 1. No collecting [...] bowel, neurogenic bladder and lower extremity spasticity. He's had an extensive work-up for longstanding left lower quadrant pain, considering potential GI and musculoskeletal etiologies, now also genitourinary causes. This pain is significantly impacting his quality of life and function. During the visit today we reviewed his hip x-ray and retroperitoneal ultrasound results. His x-ray is fairly unremarkable. Overall, it seems he has done a nice job managing his neurogenic bladder, though I continue to recommend he establish care with a Urologist for routine monitoring, including annual cystoscopy. The temporal relationship of his pain with any oral intake or bowel evacuation remains suspicious for a gastrointestinal etiology. With no abnormal findings on direct visualization and biopsy of the GI tract (granted, these studies were done 5 yrs ago, prompted by microcytic anemia), I wonder aboutbowel spasms as a cause for his pain. This could be aggravated or caused by constipation. We discussed the pros and cons of a trial of an antispasmodic today, including the potential worsening any constipation (and possible need for more frequent use of stool softeners/laxatives) and loss of sensation of bladder fullness. I am less concerned about any potential anticholinergic effect on his bladder as he straight caths routinely every 6 hrs or so. He has docusate and Miralax at home and understands that he may need to add these back to his daily regimen if dicyclomine helps with his pain but makes it more difficult for him to empty his bowels with dig stim alone. His chronic opioid use on top of his neurogenic bowel certainly also place him at risk for slow transit constipation. If the above is ineffective, I'd continue to explore potential etiologies external to the GI tract as a cause of his pain--including peripheral nerve impingement in the abdominal wall or thoracic nerve root impingement. Intestinal ischemia is lower on the differential due to his age and the focal nature of his symptoms, but is also a remote possibility. Recommendations: #Left lower quadrant pain #Risk of opioid-induced constipation #Neurogenic bowel -Trial dicyclomine (Bentyl) 10 mg 2-3 times daily (30 min prior to meals and/or bowel program) -Patient instructed to monitor stool consistency and for any difficulties with emptying bowels; mayneed to add daily docusate and nightly Miralax (would recommend using oral laxatives at night sincehe performs his bowel program in the morning) -Consider abdominal/pelvic CT with oral contrast to evaluate stool burden as well as look for potential sources of pain external to GI tract -If above ineffective, would consider referring back to the pain clinic for consideration of diagnostic LEFT T12 transforaminal injection; could also consider other interventions such as an abdominalwall block -Confirm with PCP that anemia has resolved #Neurogenic bladder -Ultrasound results reviewed today -Referral to Urology mailed to patient (patient prefers [facility]) Yue Darby MD Physical Medicine & Rehabilitation Department of Neurology Follow-up: 1 month (telehealth okay) This was a 30 minute visit spent in counseling the patient and in reviewing the above imaging and diagnostic studies. documented in this encounter Plan of Treatment Upcoming Encounters Date Type Department Care Team (Late st Contact Info) Description 03/17/2024 2:00 PM EDT TH Visit (TeleHealth) [place] [address] Yue Darby MD [facility] [address] HOSPICE [place] [address] 04/12/2024 11:30 AM EDT [place] [address] Yue Darby MD [facility] [address] HOSP[facility] [place] [address] 04/28/2024 8:30 AM EDT TH Visit (TeleHealth) [place] [address] Yue Darby MD [facility] [address] HOSP[facility] [place] [address] Scheduled Referrals Name Type Priority Associated Diagnoses Orde r Schedule Referral to Urology Outpatient Referral Routine Neurogenic bladder Ordered: 07/30/2021 documented as of this encounter Visit Diagnoses Diagnosis Chronic left lower quadrant pain Abdominal pain, left lower quadrant Neurogenic bladder Neurogenic bladder, NOS documented in this encounter Care Teams Obiee Consultant Relationship Specialty Start Date End Date Donte Padgett MD [address] [place] [address] PCP - General Family Medicine 08/24/15 documented as of this encounter
--- OUTSIDE RECORDS SUMMARY | 2024-03-04 16:57 | XMS_ITS | Encounter Summary ---
Author Organization [facility] Address [facility] [place] [address] Care Team Providers Care Senior Technical Editor Name Role Phone Donte Padgett MD Primary Care Provider [phone] Reason for Visit * Reason Onset Date Comments Medication Refill 10/19/2019 Encounter Details Date Type Department Care Team (Late st Contact Info) Description 10/19/2019 [place] [address] Cesar Fuentes MD [facility] [address] Social History Tobacco Use Types Packs/Day Years [...] PM EDT TH Visit (TeleHealth) [place] [address] Yue Darby MD [facility] HOSPICE AND PALLIATIVE MEDICINE [place], [place] [id number] 04/12/2024 11:30 AM EDT Office [place] [address] Yue Darby MD [facility] DR HOSPICE [place] [address] 04/28/2024 8:30 AM EDT TH Visit (TeleHealth) [place] [address] Yue Darby MD [facility] HOSP[facility] [place] [address] documented as of this encounter Visit Diagnoses Not on filedocumented in this encounter Care Teams Senior Technical Editor Relationship Specialty Start Date End Date Donte Padgett MD [address] [place] [address] PCP - General Family Medicine 08/24/15 documented as of this encounter
--- OUTSIDE RECORDS SUMMARY | 2024-03-04 16:57 | XMS_ITS | Encounter Summary ---
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 screen, occasional false positive results from cross-reacting substances may occur. Not for Medico-Legal Purposes. Ethanol Screen, Urine None Detected None Detected [facility] Comment:This urine ethanol a ssay detects ethanol at concentrations >/= 100 mg/L. Amphetamines Screen, Urine None Detected None Detected [facility] Comment: The amphetamine screen detects d-amphetamine and d-methamphetamine at concentrations >300 ng/mL. A ? Presumptive Positive? result indicates that the screening result was positive but has not yet been confirmed by a highly-specific method. As with any screen, occasional false positive results from cross-reacting substances may occur. Not for Medico-Legal Purposes. Adulterants Screen, Urine None Detected None Detected [facility] Comment: No adulteration or dilution of this urine sample was detected. All urine samples submitted for urine drugs of abuse analysis are tested for creatinine concentration, pH, and for the presence of oxidants, nitrites, and chromate. Urine 01/30/2021 5:32 PM EDT 01/30/2021 5:38 PM EDT Narrative Resulting Agency Comment Spec In Lab Sandi Gatica MD CHEMISTRY ORDERABLES Performing Organization Address City/[facility]/ZIP Co de Phone Number [facility] [place] [address] * Rapid Drug Screen, Urine (GUILLE Request) (01/30/2021 5:32 PM EDT) GUILLE Conf Requested Yes [facility] GUILLE Requested See Comment [facility] Comment:Refer to Rapid Drug Screen w/ Confirmation, Urine for results. Urine 01/30/2021 5:32 PM EDT 01/30/2021 5:38 PM EDT Narrative Resulting Agency Comment Spec In Lab Sandi Gatica MD URINE ORDERABLES Performing Organization Address City/[facility] Co de Phone Number [facility] [place] [address] documented in this encounter Visit Diagnoses Diagnosis Groin pain, left documented in this encounter Care Teams Material Stockkeeper Yard Relationship Specialty Start Date End Date Donte Padgett MD [address] [place] [address] PCP - General Family Medicine 08/24/15 documented as of this encounter
--- OUTSIDE RECORDS SUMMARY | 2024-03-04 16:57 | XMS_ITS | Encounter Summary ---
Author Organization [facility] Address [facility] [place] [address] Care Team Providers Care Marble Coper Name Role Phone Donte Padgett MD Primary Care Provider +1 [phone] Reason for Visit * Reason Onset Date Comments TeleHealth 11/29/2020 Encounter Details Date Type Department Care Team (Late st Contact Info) Description 11/29/2020 [place] [phone] Cesar Fuentes MD [facility] [place] [address] TeleHealth Social History Tobacco Use Types Packs/Day [...] Telephone Encounter - Mickie Esparza RN - 11/29/2020 11:39 AM EDT Spoke to this patient by phone to review their medications and allergies prior to their upcoming tele-appointment with the Neurology provider. Medications and allergies reviewed, verified and updatedas needed. documented in this encounter Plan of Treatment Upcoming Encounters Date Type Department Care Team (Late st Contact Info) Description 03/17/2024 2:00 PM EDT TH Visit (TeleHealth) [place] [address] Yue Darby MD [facility] HOSPICE [place] [address] 04/12/2024 11:30 AM EDT [place] [address] Yue Darby MD [facility] HOSPICE [place] [address] 04/28/2024 8:30 AM EDT TH Visit (TeleHealth) [place] [address] Yue Darby MD [facility] HOSPICE [place] [address] documented as of this encounter Visit Diagnoses Not on filedocumented in this encounter Care Teams Marble Coper Relationship Specialty Start Date End Date Donte Padgett MD [address] [place] [address] [address] [facility] [address] [place] [address] PCP - General Family Medicine 08/24/15 documented as of this encounter
--- OUTSIDE RECORDS SUMMARY | 2024-03-04 16:57 | XMS_ITS | Encounter Summary ---
Author Organization [facility] Address [facility] [place] [address] Care Team Providers Care Shareholder Name Role Phone Donte Padgett MD Primary Care Provider +1 [phone] Reason for Visit * Reason Onset Date Comments Medication Refill 12/21/2018 Encounter Details Date Type Department Care Team (Late Contact Info) Description 12/21/2018 [place] [address] Cesar Fuentes MD [facility] [place] [address] Social History Tobacco Use Types Packs/Day Years [...] PM EDT TH Visit (TeleHealth) [place] [address] Yue Darby MD [facility] H[facility]PICE AND PALLIATIVE MEDICINE [place], [place] [phone] 04/12/2024 11:30 AM EDT [place] [address] Yue Darby MD [facility] HOSPICE AND P[place]IATIVE [place] [address] 04/28/2024 8:30 AM EDT TH Visit (TeleHealth) [place] [address] Yue Darby MD [facility] HOSPICE AND P[place]IATIVE [place] [address] documented as of this encounter Visit Diagnoses Not on filedocumented in this encounter Care Teams Shareholder Relationship Specialty Start Date End Date Donte Padgett MD [address] [place] [address] PCP - General Family Medicine 08/24/15 documented as of this encounter
--- OUTSIDE RECORDS SUMMARY | 2024-03-04 16:57 | XMS_ITS | Encounter Summary ---
Author Organization [facility] Address [facility] [place] [address] Care Team Providers Care Laser Systems Engineer Name Role Phone Donte Padgett MD Primary Care Provider +1 [phone] Reason for Visit * Reason Onset Date Comments Medication Refill 12/18/2020 Encounter Details Date Type Department Care Team (Late st Contact Info) Description 12/18/2020 [place] [address] Cesar Fuentes MD [facility] [place] [address] Social History Tobacco Use Types Packs/Day Years [...] Telephone Encounter - Patricia Busch RN - 12/18/2020 11:01 AM EDT Rx line request for hydrocodone Last rx 11/12/20 Last appt 12/06/20 documented in this encounter Plan of Treatment Upcoming Encounters Date Type Department Care Team (Late st Contact Info) Description 03/17/2024 2:00 PM EDT TH Visit (TeleHealth) [place] [address] Yue Darby MD [facility] HOSPICE AND [place] [address] 04/12/2024 11:30 AM EDT Office Visit Neurology at [place] [phone] Yue Darby MD [facility] HOSPICE AND [place] [address] 04/28/2024 8:30 AM EDT TH Visit (TeleHealth) Neurology at [place] [phone] Yue Darby MD [facility] HOSPICE AND [place] [address] documented as of this encounter Visit Diagnoses Not on filedocumented in this encounter Care Teams Laser Systems Engineer Relationship Specialty Start Date End Date Donte Padgett MD [address] [place] [address] PCP - General Family Medicine 08/24/15 documented as of this encounter
--- OUTSIDE RECORDS SUMMARY | 2024-03-04 16:57 | XMS_ITS | Encounter Summary ---
Author Organization [facility] Address [facility] [place] [address] Care Team Providers Care Intern Brand Name Role Phone Donte Padgett MD Primary Care Provider [phone] [phone] Reason for Visit * Reason Onset Date Comments Medication Refill 09/10/2018 Encounter Details Date Type Department Care Team (Late st Contact Info) Description 09/10/2018 [place] [address] Cesar Fuentes MD [facility] [place] [address] Social History Tobacco Use Types Packs/Day Years [...] Telephone Encounter - Patricia Busch RN - 09/10/2018 8:08 AM EST See 09/09/18 phone note documented in this encounter Plan of Treatment Upcoming Encounters Date Type Department Care Team (Late st Contact Info) Description 03/17/2024 2:00 PM EDT TH Visit (TeleHealth) [place] [address] Yue Darby MD [facility] HOSPICE [place] [address] 04/12/2024 11:30 AM EDT Office Visit Neurology at [place] [phone] Yue Darby MD [facility] HOSPICE [place] [address] 04/28/2024 8:30 AM EDT TH Visit (TeleHealth) [place] [address] Yue Darby MD [facility] HOSPICE [place] [address] documented as of this encounter Visit Diagnoses Not on filedocumented in this encounter Care Teams Intern Brand Relationship Specialty Start Date End Date Donte Padgett MD [address] [place] [address] PCP - General Family Medicine 08/24/15 documented as of this encounter
--- OUTSIDE RECORDS SUMMARY | 2024-03-04 16:57 | XMS_ITS | Encounter Summary ---
Author Organization [facility] Address [facility] [place] [address] Care Team Providers Care Customer Management Specialist Name Role Phone Donte Padgett MD Primary Care Provider [phone] [phone] Reason for Visit * Reason Onset Date Comments Medication Refill 03/20/2021 Encounter Details Date Type Department Care Team (Late st Contact Info) Description 03/20/2021 [place] [address] Cesar Fuentes MD [facility] [place] [address] Social History Tobacco Use Types Packs/Day Years [...] Telephone Encounter - Leia Alvarez CMA - 03/20/2021 8:34 AM EDT Surescript request for : hydrocodone Last rx: 01/30/21 Quantity: 120 tabs Refills: 0 Last appt: 01/30/21 Next appt: 05/28/21 documented in this encounter Plan of Treatment Upcoming Encounters Date Type Department Care Team (Late st Contact Info) Description 03/17/2024 2:00 PM EDT TH Visit (TeleHealth) [place] [address] Yue Darby MD [facility] HOSPICE AND [place] [address] 04/12/2024 11:30 AM EDT [place] [address] Yue Darby MD [facility] HOSPICE AND [place] [address] 04/28/2024 8:30 AM EDT TH Visit (TeleHealth) [place] [address] Yue Darby MD [facility] HOSPICE AND [place] [address] documented as of this encounter Visit Diagnoses Not on filedocumented in this encounter Care Teams Customer Management Specialist Relationship Specialty Start Date End Date Donte Padgett MD [address] [place] [address] PCP - General Family Medicine 08/24/15 documented as of this encounter
--- OUTSIDE RECORDS SUMMARY | 2024-03-04 16:57 | XMS_ITS | Encounter Summary ---
Author Organization [facility] Address [facility] [place] [address] Care Team Providers Care Radiologic Technologist Mammogram Name Role Phone Donte Padgett MD Primary Care Provider [phone] [phone] Reason for Visit * Reason Onset Date Comments Medication Refill 05/14/2020 Encounter Details Date Type Department Care Team (Late st Contact Info) Description 05/14/2020 [place] [address] Cesar Fuentes MD [facility] [place] [address] Social History Tobacco Use Types Packs/Day Years [...] PM EDT TH Visit (TeleHealth) [place] [address] Yue Darby MD [facility] HOSPICE AND PALLIATIVE MEDICINE [place], [place] [id number] 04/12/2024 11:30 AM EDT [place] [address] Yue Darby MD [facility] DR HOSPICE AND [place] [address] 04/28/2024 8:30 AM EDT TH Visit (TeleHealth) [place] [address] Yue Darby MD [facility] HOSPICE AND [place] [address] documented as of this encounter Visit Diagnoses Not on filedocumented in this encounter Care Teams Radiologic Technologist Mammogram Relationship Specialty Start Date End Date Donte Padgett MD [address] [place] [address] PCP - General Family Medicine 08/24/15 documented as of this encounter
--- OUTSIDE RECORDS SUMMARY | 2024-03-04 16:57 | XMS_ITS | Encounter Summary ---
Author Organization [facility] Address [facility] [place] [address] Care Team Providers Care Receiving And Processing Supervisor Name Role Phone Donte Padgett MD Primary Care Provider +1 -[phone] Reason for Visit * Reason Onset Date Comments Medication Refill 03/23/2019 Encounter Details Date Type Department Care Team (Late Contact Info) Description 03/23/2019 [place] [address] Cesar Fuentes MD [facility] [place] [address] Social History Tobacco Use Types Packs/Day Years [...] PM EDT TH Visit (TeleHealth) [place] [address] Yue Darby MD [facility] HOSPICE AND PALLIATIVE MEDICINE [place], [place] [address] 04/12/2024 11:30 AM EDT [place] [address] Yue Darby MD [facility] DR HOSPICE [place] [address] 04/28/2024 8:30 AM EDT TH Visit (TeleHealth) [place] [address] Yue Darby MD [facility] HOSPICE [place] [address] documented as of this encounter Visit Diagnoses Not on filedocumented in this encounter Care Teams Receiving And Processing Supervisor Relationship Specialty Start Date End Date Donte Padgett MD [address] [place] [address] PCP - General Family Medicine 08/24/15 documented as of this encounter
--- OUTSIDE RECORDS SUMMARY | 2024-03-04 16:57 | XMS_ITS | Encounter Summary ---
Author Organization [facility] Address [facility] [place] [address] Care Team Providers Care Risk Advisor Name Role Phone Donte Padgett MD Primary Care Provider [phone] -[phone] Reason for Visit * Reason Onset Date Comments TeleHealth 12/06/2020 Encounter Details Date Type Department Care Team (Late st Contact Info) Description 12/06/2020 Telephone [place] [address] Cesar Fuentes MD [facility] [address] TeleHealth Social History Tobacco Use Types Packs/Day [...] Telephone Encounter - Mickie Esparza RN - 12/06/2020 9:37 AM EDT This patient is requesting an in person appointment to see Dr. Fuentes as per the last telephone visit plan. Secretaries notified. documented in this encounter Plan of Treatment Upcoming Encounters Date Type Department Care Team (Late st Contact Info) Description 03/17/2024 2:00 PM EDT TH Visit (TeleHealth) [place] [address] Yue Darby MD [facility] [address] HOSPICE [place] [address] 04/12/2024 11:30 AM EDT Office [place] [address] Yue Darby MD [facility] DR HOSPICE [place] [address] 04/28/2024 8:30 AM EDT TH Visit (TeleHealth) [place] [address] Yue Darby MD [facility] [address] HOSPICE [place] [address] documented as of this encounter Visit Diagnoses Not on filedocumented in this encounter Care Teams Risk Advisor Relationship Specialty Start Date End Date Donte Padgett MD [address] [place] [address] [address] [place] [address] PCP - General Family Medicine 08/24/15 documented as of this encounter
--- OUTSIDE RECORDS SUMMARY | 2024-03-04 16:57 | XMS_ITS | Encounter Summary ---
Author Organization [facility] Address [facility] [place] [address] Care Team Providers Care Casework Manager Name Role Phone Donte Padgett MD Primary Care Provider [phone] -[phone] Reason for Visit * Reason Onset Date Comments Appointment 02/01/2021 Encounter Details Date Type Department Care Team (Late st Contact Info) Description 02/01/2021 [place] [address] Cesar Fuentes MD [facility] [place] [address] Appointment Social History Tobacco Use Types Packs/Day [...] encounter Miscellaneous Notes * Telephone Encounter - Aurelia Viramontes - 02/01/2021 12:47 PM EDT Scheduling Instructions Provider: Won Fuentes MD Visit Type (paste CARLOS Instructions or manually enter): Return in about 3 months (around 05/02/2021)for In Clinic. Appt Note: 3 Mos FUV Additional Info Needed: documented in this encounter Plan of Treatment Upcoming Encounters Date Type Department Care Team (Late st Contact Info) Description 03/17/2024 2:00 PM EDT TH Visit (TeleHealth) [place] [address] Yue Darby MD [facility] HOSPICE [place] [address] 04/12/2024 11:30 AM EDT [place] [address] Yue Darby MD [facility] HOSPICE [place] [address] 04/28/2024 8:30 AM EDT TH Visit (TeleHealth) [place] [address] Yue Darby MD [facility] HOSPICE [place] [address] documented as of this encounter Visit Diagnoses Not on filedocumented in this encounter Care Teams Casework Manager Relationship Specialty Start Date End Date Donte Padgett MD [address] [facility] [[email or web address] 1 [place] [address] PCP - General Family Medicine 08/24/15 documented as of this encounter
--- OUTSIDE RECORDS SUMMARY | 2024-03-04 16:57 | XMS_ITS | Encounter Summary ---
Author Organization [facility] Address [facility] [place] [address] Care Team Providers Care Dual Rate Supervisor Name Role Phone Donte Padgett MD Primary Care Provider +1 -[phone] Encounter Details Date Type Department Care Team (Late st Contact Info) Description 07/05/2021 Telephone [place] [address] Yue Darby MD [facility] HOSPICE [place] [address] Social History Tobacco Use Types Packs/Day Years [...] PM EDT TH Visit (TeleHealth) [place] [address] Yue Darby MD [facility] HOSPICE [place] [address] 04/12/2024 11:30 AM EDT Office [place] [address] Yue Darby MD [facility] HOSPICE [place] [address] 04/28/2024 8:30 AM EDT TH Visit (TeleHealth) [place] [address] Yue Darby MD [facility] HOSPICE [place] [address] documented as of this encounter Visit Diagnoses Diagnosis Groin pain, left documented in this encounter Care Teams Dual Rate Supervisor Relationship Specialty Start Date End Date Donte Padgett MD [facility] [address] [place] [address] PCP - General Family Medicine 08/24/15 documented as of this encounter
--- OUTSIDE RECORDS SUMMARY | 2024-03-04 16:57 | XMS_ITS | Encounter Summary ---
Author Organization [facility] Address [facility] [place] [address] Care Team Providers Care Monorail Car Operator Name Role Phone Donte Padgett MD Primary Care Provider +1 -[phone] Reason for Visit * Reason Onset Date Comments TeleHealth 07/25/2021 Encounter Details Date Type Department Care Team (Late st Contact Info) Description 07/25/2021 Telephone [place] [address] Yue Darby MD [facility] HOSPICE AND [place] [address] TeleHealth Social History Tobacco Use Types Packs/Day [...] Telephone Encounter - Mickie Esparza RN - 07/25/2021 11:52 AM EST Unable to reach this patient by phone to review their medications and allergies prior to their upcoming tele-appointment with the Neurology provider. No message left. documented in this encounter Plan of Treatment Upcoming Encounters Date Type Department Care Team (Late st Contact Info) Description 03/17/2024 2:00 PM EDT TH Visit (TeleHealth) [place] [address] Yue Darby MD [facility] DR HOSPICE AND [place] [address] 04/12/2024 11:30 AM EDT Office [place] [address] Yue Darby MD [facility] HOSPICE AND [place] [address] 04/28/2024 8:30 AM EDT TH Visit (TeleHealth) [place] [address] Yue Darby MD [facility] HOSPICE AND [place] [address] documented as of this encounter Visit Diagnoses Not on filedocumented in this encounter Care Teams Monorail Car Operator Relationship Specialty Start Date End Date Donte Padgett MD [address] [facility] 1 [place] [address] PCP - General Family Medicine 08/24/15 documented as of this encounter
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
--- OUTSIDE RECORDS SUMMARY | 2024-03-04 16:57 | XMS_ITS | Encounter Summary ---
Author Organization [facility] Address [facility] [place] [address] Care Team Providers Care Information Systems Security Officer Name Role Phone Donte Padgett MD Primary Care Provider [phone] Reason for Visit * Reason Onset Date Comments Medication Refill 05/16/2021 Encounter Details Date Type Department Care Team (Late st Contact Info) Description 05/16/2021 [place] [address] Cesar Fuentes MD [facility] [place] [address] Social History Tobacco Use Types Packs/Day Years [...] Telephone Encounter - Leia Alvarez CMA - 05/16/2021 5:00 PM EST Surescript request for : hydrocodone Last rx: 04/17/21 Quantity: 120 Refills: 0 Last appt: 01/30/21 Next appt: 05/28/21 documented in this encounter Plan of Treatment Upcoming Encounters Date Type Department Care Team (Late st Contact Info) Description 03/17/2024 2:00 PM EDT TH Visit (TeleHealth) [place] [address] Yue Darby MD [facility] HOSPICE [place] [address] 04/12/2024 11:30 AM EDT [place] [address] Yue Darby MD [facility] HOSPICE [place] [address] 04/28/2024 8:30 AM EDT TH Visit (TeleHealth) [place] [address] Yue Darby MD [facility] HOSPICE [place] [address] documented as of this encounter Visit Diagnoses Not on filedocumented in this encounter Care Teams Information Systems Security Officer Relationship Specialty Start Date End Date Donte Padgett MD [address] [facility] [address] [place] [address] PCP - General Family Medicine 08/24/15 documented as of this encounter
--- OUTSIDE RECORDS SUMMARY | 2024-03-04 16:57 | XMS_ITS | Encounter Summary ---
Author Organization [facility] Address [facility] [place] [address] Care Team Providers Care Forms Analysis Manager Name Role Phone Donte Padgett MD Primary Care Provider [phone] Reason for Visit * Reason Onset Date Comments Medication Refill 06/20/2019 Encounter Details Date Type Department Care Team (Late st Contact Info) Description 06/20/2019 [place] [address] Cesar Fuentes MD [facility] [place] [address] Social History Tobacco Use Types Packs/Day Years [...] PM EDT TH Visit (TeleHealth) [place] [address] Yue Darby MD [facility] HOSPICE AND PALLIATIVE MEDICINE [place], [place] [id number] 04/12/2024 11:30 AM EDT Office [place] [address] Yue Darby MD [facility] DR HOSPICE AND [place] [address] 04/28/2024 8:30 AM EDT TH Visit (TeleHealth) [place] [address] Yue Darby MD [facility] HOSPICE [facility] [place] [address] documented as of this encounter Visit Diagnoses Not on filedocumented in this encounter Care Teams Forms Analysis Manager Relationship Specialty Start Date End Date Donte Padgett MD [address] [place] [address] PCP - General Family Medicine 08/24/15 documented as of this encounter
--- OUTSIDE RECORDS SUMMARY | 2024-03-04 16:57 | XMS_ITS | Encounter Summary ---
Author Organization [facility] Address [facility] [place] [address] Care Team Providers Care Heat Transfer Technician Name Role Phone Donte Padgett MD Primary Care Provider +1 [phone] Reason for Visit * Reason Onset Date Comments Other 09/20/2018 Encounter Details Date Type Department Care Team (Late st Contact Info) Description 09/20/2018 [place] [phone] Cesar Fuentes MD [facility] [place] [address] Other Social History Tobacco Use Types Packs/Day Years [...] Miscellaneous Notes * Telephone Encounter - Rupinder Ortiz RN - 09/21/2018 12:[address] Fuentes: The best approach here is to send him a letter and tell him to take the pills with the letter to the police station and hand it over there. Laureen Guerrero I phoned pt and reviewed above and instructed him we will send in new rx for vicodin to his pharmacy. After 2nd dose today he will have 55 tablets of methadone left. He will take to local PD with letter that Dr. Fuentes wrote. Will place in outgoing mail today. Message left on pt's voice mail that letter mailed out and once he receives letter to bring it withthe methadone to local PD for disposal. Message also left that rx for vicodin will be sent to pharmacy today. Plan; as above. * Telephone Encounter - Rupinder Ortiz RN - 09/20/2018 3:[address] Fuentes: Okay, put him back on Vicodin. Thanks Cesar I phoned pt back to review above. I asked him how much methadone he has left. He states he is not home currently. He will be home this evening around 6:30 pm. He states he will call and leave messageon my voice mail with how much methadone he has left ([phone]). Plan: as above. I will forward to Dr. Fuentes for further review. * Telephone Encounter - Rupinder Ortiz RN - 09/20/2018 11:53 AM EDT I will forward to Dr. Fuentes for review. * Telephone Encounter - Gina Montesinos - 09/20/2018 11:21 AM EDT Clinical Safety Advisor Message Caller: Aly If not Pt / Relation to pt: Call back Number: [phone] Best time to reach caller: 2:30 pm or later (pt states okay to leave detailed vm) Reason for call: Methadone Prescription Message/information for the nurse: Pt called stating that Dr. Fuentes increased his Methadone dosage fron 2x daily to 3x daily to helpwith pain management. Pt states this is not working as well as the Vicodin Dr. Fuentes previously prescribed. Pt is asking if the medication should be changed. Disposition of Call ?? Routine Message sent to the Nurse documented in this encounter Plan of Treatment Upcoming Encounters Date Type Department Care Team (Late st Contact Info) Description 03/17/2024 2:00 PM EDT TH Visit (TeleHealth) [place] [address] Yue Darby MD [facility] DR HOSPICE AND [place] [address] 04/12/2024 11:30 AM EDT [place] [address] Yue Darby MD [facility] HOSPICE AND [place] [address] 04/28/2024 8:30 AM EDT TH Visit (TeleHealth) [place] [address] Yue Darby MD [facility] HOSPICE AND [place]AT[place] [address] documented as of this encounter Visit Diagnoses Not on filedocumented in this encounter Care Teams Heat Transfer Technician Relationship Specialty Start Date End Date Donte Padgett MD [address] [place] [address] PCP - General Family Medicine 08/24/15 documented as of this encounter
--- OUTSIDE RECORDS SUMMARY | 2024-03-04 16:57 | XMS_ITS | Encounter Summary ---
Author Organization [facility] Address [facility] [place] [address] Care Team Providers Care Hospital Coder Name Role Phone Donte Padgett MD Primary Care Provider +1 [phone] Reason for Visit * Reason Onset Date Comments Medication Refill 08/19/2019 Encounter Details Date Type Department Care Team (Late st Contact Info) Description 08/19/2019 [place] [address] Cesar Fuentes MD [facility] [place] [address] Social History Tobacco Use Types Packs/Day Years [...] PM EDT TH Visit (TeleHealth) [place] [address] Yue Darby MD [facility] HOSPICE AND PALLIATIVE MEDICINE [place], [place] [id number] 04/12/2024 11:30 AM EDT [place] [address] Yue Darby MD [facility] DR HOSPICE AND P[place] [address] 04/28/2024 8:30 AM EDT TH Visit (TeleHealth) [place] [address] Yue Darby MD [facility] HOSPICE AND P[place]IATIVE [place] [address] documented as of this encounter Visit Diagnoses Not on filedocumented in this encounter Care Teams Hospital Coder Relationship Specialty Start Date End Date Donte Padgett MD [address] [place] [address] PCP - General Family Medicine 08/24/15 documented as of this encounter
--- OUTSIDE RECORDS SUMMARY | 2024-03-04 16:57 | XMS_ITS | Encounter Summary ---
Author Organization [facility] Address [facility] [place] [address] Care Team Providers Care Hospitalist Name Role Phone Donte Padgett MD Primary Care Provider +1 [phone] Reason for Visit * Reason Onset Date Comments Medication Refill 08/13/2020 Encounter Details Date Type Department Care Team (Late st Contact Info) Description 08/13/2020 [place] [address] Cesar Fuentes MD [facility] [place] [address] Social History Tobacco Use Types Packs/Day Years [...] PM EDT TH Visit (TeleHealth) [place] [address] Yue Darby MD [facility] HOSPICE AND [place] [address] 04/12/2024 11:30 AM EDT [place] [address] Yue Darby MD [facility] HOSPICE AND [place] [address] 04/28/2024 8:30 AM EDT TH Visit (TeleHealth) [place] [address] Yue Darby MD [facility] HOSPICE AND [place] [address] documented as of this encounter Visit Diagnoses Not on filedocumented in this encounter Care Teams Hospitalist Relationship Specialty Start Date End Date Donte Padgett MD [address] [place] [address] PCP - General Family Medicine 08/24/15 documented as of this encounter
--- OUTSIDE RECORDS SUMMARY | 2024-03-04 16:57 | XMS_ITS | Encounter Summary ---
Author Organization [facility] Address [facility] [place] [address] Care Team Providers Care Case Management Social Worker Name Role Phone Donte Padgett MD Primary Care Provider +1 [phone] Reason for Visit * Reason Onset Date Comments Medication Refill 01/20/2019 Encounter Details Date Type Department Care Team (Late Contact Info) Description 01/20/2019 [place] [address] Cesar Fuentes MD [facility] [place] [address] Social History Tobacco Use Types Packs/Day Years [...] PM EDT TH Visit (TeleHealth) [place] [address] Yue Darby MD [facility] HOSPICE AND PALLIATIVE MEDICINE [place], [place] [id number] 04/12/2024 11:30 AM EDT [place] [address] Yue Darby MD [facility] DR HOSPICE AND [place] [address] 04/28/2024 8:30 AM EDT TH Visit (TeleHealth) [place] [address] Yue Darby MD [facility] HOSPICE AND [place] [address] documented as of this encounter Visit Diagnoses Not on filedocumented in this encounter Care Teams Case Management Social Worker Relationship Specialty Start Date End Date Donte Padgett MD [address] [place] [address] PCP - General Family Medicine 08/24/15 documented as of this encounter
--- OUTSIDE RECORDS SUMMARY | 2024-03-04 16:57 | XMS_ITS | Encounter Summary ---
Author Organization [facility] Address [facility] [place] [address] Care Team Providers Care Decatizer Name Role Phone Donte Padgett MD Primary Care Provider +1 [phone] Encounter Details Date Type Department Care Team (Late st Contact Info) Description 07/23/2021 2:55 PM EST - 07/23/2021 11:59 PM EST Hospital [place] [address] Yue Jenkins MD [facility] DR HOSPICE [place] [address] Chronic left lower quadrant pain Discharge Disposition: [...] Prn heartburn, takes 2-3 x/week HYDROcodone-acetaminop hen ([place]) 5-325 mg Tablet Take 1 tablet by mouth 4 times daily. Dose increased from 1 tablet 3 times daily 120 tablet 07/15/2021 08/12/2021 metoclopramide (REGLAN) 5 mg Tablet Take 1 tablet by mouth 4 times daily. 120 tablet 5 01/30/2021 07/30/2021 ferrous sulfate 325 mg (65 mg iron) [...] PM EDT TH Visit (TeleHealth) [place] [address] Yue Jenkins MD [facility] HOSPICE [place] [address] 04/12/2024 11:30 AM EDT [place] [address] Yue Jenkins MD [facility] DR HOSPICE [place] [address] 04/28/2024 8:30 AM EDT TH Visit (TeleHealth) [place] [address] Yue Jenkins MD [facility] DR HOSPICE [place] [address] documented as of this encounter Procedures Procedure Name Priority Date/Time Associated Diagnosis Comments US RETROPERITONEAL COMPLETE Routine 07/23/2021 3:20 PM EST Chronic left lower quadrant pain documented in this encounter Results * US Retroperitoneal Complete [...] who have questions, please contact the health career development counselor that requested your imaging first. ? Anu Jha, Staff Physician Electronically Signed Final Report ?? 07/23/2021 05:16 pm Narrative 07/23/2021 5:17 PM EST Renal ? (Signed Final 07/23/2021 05:16 pm) PATIENT INFO: ID #: ? [id number] ?: ??[birth year] (31 yrs)(M) Name: ? DARIO D ELA TORRE ?Visit Date: 07/23/2021 03:18 pm PERFORMED BY: Performed By: ? Vanda Brantley RDMS Attending: ?Yudelka ROMERO, Anu Mcknight Resident: ? Pan Jaramillo DO Referred By: ?YUE JENKINS Location: ? [place] SERVICE(S) PROVIDED: URETRO - Retroperitoneal Complete - [id number] ? [id number] INDICATIONS: history of neurogenic bladder due to [...] 07/23/2021 05:16 pm) PATIENT INFO: ID #: [id number] : [birth year] (31 yrs)(M) Name: DARIO DE LA TORRE Visit Date: 07/23/2021 03:18 pm PERFORMED BY: Performed By: Vanda Brantley RDMS Attending: Anu Jha MD Resident: Pan Jaramillo DO Referred By: YUE JENKINS Location: [place] SERVICE(S) PROVIDED: URETRO - Retroperitoneal Complete - [id number] INDICATIONS: history of neurogenic bladder due to [...] who have questions, please contact the health career development counselor that requested your imaging first. Anu Jha, Staff Physician Electronically Signed Final Report 07/23/2021 05:16 pm Yue Jenkins MD IMG US GEN ORDERABLE S documented in this encounter Visit Diagnoses Diagnosis Chronic left lower quadrant pain Abdominal pain, left lower quadrant documented in this encounter Care Teams Decatizer Relationship Specialty Start Date End Date Donte Padgett MD [address] [place] [address] PCP - General Family Medicine 08/24/15 documented as of this encounter
--- OUTSIDE RECORDS SUMMARY | 2024-03-04 16:57 | XMS_ITS | Encounter Summary ---
Author Organization [facility] Address [facility] [place] [address] Care Team Providers Care Cloth Sponger Name Role Phone Donte Padgett MD Primary Care Provider +1 [phone] Reason for Visit * Reason Onset Date Comments Medication Refill 12/19/2019 Encounter Details Date Type Department Care Team (Late Contact Info) Description 12/19/2019 [place] [address] Cesar Fuentes MD [facility] [place] [address] Social History Tobacco Use Types Packs/Day Years [...] PM EDT TH Visit (TeleHealth) [place] [address] Yue Darby MD [facility] HOSPICE AND PALLIATIVE MEDICINE [place], [place] [address] 04/12/2024 11:30 AM EDT [place] [address] Yue Darby MD [facility] DR HOSPICE [place] [address] 04/28/2024 8:30 AM EDT TH Visit (TeleHealth) [place] [address] Yue Darby MD [facility] HOSPICE [place] [address] documented as of this encounter Visit Diagnoses Not on filedocumented in this encounter Care Teams Cloth Sponger Relationship Specialty Start Date End Date Donte Padgett MD [address] [place] [address] PCP - General Family Medicine 08/24/15 documented as of this encounter
--- OUTSIDE RECORDS SUMMARY | 2024-03-04 16:57 | XMS_ITS | Encounter Summary ---
Author Organization [facility] Address [facility] [place] [address] Care Team Providers Care Sales Account Manager Name Role Phone Donte Padgett MD Primary Care Provider +1 [phone] Encounter Details Date Type Department Care Team (Late st Contact Info) Description 07/23/2021 2:30 PM EST - 07/23/2021 2:54 PM EST Hospital Encounter XRay at [address] [place] [address] Yue Darby MD [facility] HOSPICE AND [place] [address] Groin pain, left Discharge Disposition: Home Social History Tobacco Use [...] Prn heartburn, takes 2-3 x/week HYDROcodone-acetaminop hen ([place]) 5-325 mg Tablet Take 1 tablet by [...] PM EDT TH Visit (TeleHealth) [place] [address] Yue Darby MD [facility] DR HOSPICE [place] [address] 04/12/2024 11:30 AM EDT [place] [address] Yue Darby MD [facility] DR HOSPICE [place] [address] 04/28/2024 8:30 AM EDT TH Visit (TeleHealth) [place] [address] Yue Darby MD [facility] DR HOSPICE [place] [address] documented as of this encounter Procedures Procedure Name Priority Date/Time Associated Diagnosis Comments XR PELVIS AND HIP 2 VIEWS LEFT Routine 07/23/2021 2:51 PM EST Groin pain, left documented in this encounter Results * XR Pelvis and Hip 2 Views Left (07/23/2021 2:51 PM EST) Anatomical Region Laterality Modality Pelvis, Hip Left Digital Radiogra phy Impressions 07/23/2021 3:10 PM EST 1. ??Bilateral hip osteoarthropathy. 2. ??No evidence of heterotopic ossification. I have personally reviewed the image(s) and the resident's interpretation and agree with the findings, Melva Cronin MD at 07/23/2021 3:10 PM Thank you for letting us participate in the care of this patient. ??If you are a health care provider and have any questions regarding this report, please contact the number below. ??For patients who have questions please contact the health health care / medical job titles that requested your imaging first. ? Electronically signed by: Melva Cronin MD, 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 Rule out heterotopic ossification. TECHNIQUE: 3 views of the pelvis and hips COMPARISON: None FINDINGS: No fracture or dislocation. Osteoarthropathy of both hip joints characterized by acetabular sclerosis and mild joint space narrowing. Sacroiliac joints are symmetric. Ankylosis of the pubic symphysis. A subcentimeter amorphous calcific density projects over the upper medial left thigh, likely vascular. There is also calcific density projecting over the right inferior pubic ramus which is indeterminate in location on this single AP view. 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 Rule out heterotopic ossification. TECHNIQUE: 3 views of the pelvis and hips COMPARISON: None FINDINGS: No fracture or dislocation. Osteoarthropathy of both hip jointscharacterized by acetabular sclerosis and mild joint space narrowing. Sacroiliac jointsare symmetric. Ankylosis of the pubic symphysis. A subcentimeter amorphous calcific density projects over the upper medialleft thigh, likely vascular. There is also calcific density projecting over theright inferior pubic ramus which is indeterminate in location on this single APview. IMPRESSION 1. Bilateral hip osteoarthropathy. 2. No evidence of heterotopic ossification. I have personally reviewed the image(s) and the resident's interpretationand agree with the findings, Melva Cronin MD at 07/23/2021 3:10 PM Thank you for letting us participate in the care of this patient. If youare a health care provider and have any questions regarding this report,please contact the number below. For patients who have questions please contactthe health health care / medical job titles that requested your imaging first. Electronically signed by: Melva Cronin MD, [facility]([phone]), at 07/23/2021 3:10 PM Yue Darby MD IMG DX ORDERABLES documented in this encounter Visit Diagnoses Diagnosis Groin pain, left documented in this encounter Care Teams Sales Account Manager Relationship Specialty Start Date End Date Donte Padgett MD [address] [place] [address] PCP - General Family Medicine 08/24/15 documented as of this encounter
--- OUTSIDE RECORDS SUMMARY | 2024-03-04 16:57 | XMS_ITS | Encounter Summary ---
Author Organization [facility] Address [facility] [place] [address] Care Team Providers Care Communication Analyst Name Role Phone Donte Padgett MD Primary Care Provider +1 -[phone] Reason for Visit * Reason Onset Date Comments Medication Refill 04/21/2019 Encounter Details Date Type Department Care Team (Late Contact Info) Description 04/21/2019 [place] [address] Cesar Fuentes MD [facility] [place] [address] Social History Tobacco Use Types Packs/Day Years [...] PM EDT TH Visit (TeleHealth) [place] [address] Yue Darby MD [facility] HOSPICE AND PALLIATIVE MEDICINE [place], [place] [address] 04/12/2024 11:30 AM EDT [place] [address] Yue Darby MD [facility] DR HOSPICE [place] [address] 04/28/2024 8:30 AM EDT TH Visit (TeleHealth) [place] [address] Yue Darby MD [facility] HOSPICE [place] [address] documented as of this encounter Visit Diagnoses Not on filedocumented in this encounter Care Teams Communication Analyst Relationship Specialty Start Date End Date Donte Padgett MD [address] [place] [address] PCP - General Family Medicine 08/24/15 documented as of this encounter
--- OUTSIDE RECORDS SUMMARY | 2024-03-04 16:57 | XMS_ITS | Encounter Summary ---
Author Organization [facility] Address [facility] [place] [address] Care Team Providers Care Financial Advisor Trainee Name Role Phone Donte Padgett MD Primary Care Provider +1 -[phone] Reason for Visit * Reason Onset Date Comments Medication Refill 09/14/2020 Encounter Details Date Type Department Care Team (Late st Contact Info) Description 09/14/2020 [place] [address] Cesar Fuentes MD [facility] [place] [address] Social History Tobacco Use Types Packs/Day Years [...] PM EDT TH Visit (TeleHealth) [place] [address] Yue Darby MD [facility] HOSPICE [place] [address] 04/12/2024 11:30 AM EDT [place] [address] Yue Darby MD [facility] HOSPICE [place] [address] 04/28/2024 8:30 AM EDT TH Visit (TeleHealth) [place] [address] Yue Darby MD [facility] HOSPICE [place] [address] documented as of this encounter Visit Diagnoses Not on filedocumented in this encounter Care Teams Financial Advisor Trainee Relationship Specialty Start Date End Date Donte Padgett MD [address] [place] [address] PCP - General Family Medicine 08/24/15 documented as of this encounter
--- OUTSIDE RECORDS SUMMARY | 2024-03-04 16:57 | XMS_ITS | Encounter Summary ---
Author Organization [facility] Address [facility] [place] [address] Care Team Providers Care Auto Travel Counselor Name Role Phone Donte Padgett MD Primary Care Provider +1 -[phone] Reason for Visit * Reason Onset Date Comments Medication Refill 10/21/2018 Encounter Details Date Type Department Care Team (Late st Contact Info) Description 10/21/2018 [place] [address] Cesar Fuentes MD [facility] [place] [address] Social History Tobacco Use Types Packs/Day Years [...] PM EDT TH Visit (TeleHealth) [place] [address] Yue Darby MD [facility] HOSPICE AND PALLIATIVE MEDICINE [place], [place] [address] 04/12/2024 11:30 AM EDT Office [place] [address] Yue Darby MD [facility] DR HOSPICE [place] [address] 04/28/2024 8:30 AM EDT TH Visit (TeleHealth) [place] [address] Yue Darby MD [facility] HOSPICE [place] [address] documented as of this encounter Visit Diagnoses Not on filedocumented in this encounter Care Teams Auto Travel Counselor Relationship Specialty Start Date End Date Donte Padgett MD [address] [place] [address] PCP - General Family Medicine 08/24/15 documented as of this encounter
--- OUTSIDE RECORDS SUMMARY | 2024-03-04 16:57 | XMS_ITS | Encounter Summary ---
Author Organization [facility] Address [facility] [place] [address] Care Team Providers Care Salvationist Name Role Phone Donte Padgett MD Primary Care Provider +1 [phone] Reason for Visit * Reason Onset Date Comments Medication Refill 11/12/2020 Encounter Details Date Type Department Care Team (Late st Contact Info) Description 11/12/2020 [place] [address] Cesar Fuentes MD [facility] [place] [address] Social History Tobacco Use Types Packs/Day Years [...] Telephone Encounter - Patricia Busch RN - 11/12/2020 10:26 AM EDT Last rx 10/14/20 * Telephone Encounter - Sarah-Barbara Santo - 11/12/2020 10:11 AM EDT Call Center / [facility] Message Prescription Refill Request Clinical [place] message Provider patient sees in Clinic: Gina Caller and relationship (if other than patient-full name): Aly De La Torre Call back Number: [phone] Ok to leave a message: yes Name of Med: HYDROcodone-acetaminophen ([place]) 5-325 mg Tablet Strength of Pills: 5-325 mg Dosing Directions: Take 1 tablet by mouth 3 times daily 30 or 90 Day Supply: 30 day Pharmacy: [facility] [address] [place], [place] Last Appointment: Next Appointment: (IF CALL IS FROM PATIENT/FAMILY AND THERE IS NO FOLLOW UP SCHEDULED REVIEW CHART TO SEE WHEN APPOINTMENT IS NEEDED AND SCHEDULE BEFORE SENDING MESSAGE) 11/30/20 Is Patient out of Medication?: yes What is the issue patient is having with medication (ex: dose increase, not at pharmacy): pt out ofmed documented in this encounter Plan of Treatment Upcoming Encounters Date Type Department Care Team (Late st Contact Info) Description 03/17/2024 2:00 PM EDT TH Visit (TeleHealth) [place] [address] Yue Darby MD [facility] HOSPICE AND [place] [address] 04/12/2024 11:30 AM EDT [place] [address] Yue Darby MD [facility] HOSPICE AND [place] [address] 04/28/2024 8:30 AM EDT TH Visit (TeleHealth) [place] [address] Yue Darby MD [facility] HOSPICE AND [place] [address] documented as of this encounter Visit Diagnoses Not on filedocumented in this encounter Care Teams Salvationist Relationship Specialty Start Date End Date Donte Padgett MD [address] [place] [address] PCP - General Family Medicine 08/24/15 documented as of this encounter
--- OUTSIDE RECORDS SUMMARY | 2024-03-04 16:57 | XMS_ITS | Encounter Summary ---
[facility] Address [facility] [place] [address] Care Team Providers Care Sales Branch Manager Name Role Phone Donte Padgett MD Primary Care Provider [phone] [phone] Reason for Visit * Reason Onset Date Comments Medication Refill 02/18/2019 Encounter Details Date Type Department Care Team (Late Contact Info) Description 02/18/2019 [place] [address] Cesar Fuentes MD [facility] [place] [address] Social History Tobacco Use Types Packs/Day Years [...] PM EDT TH Visit (TeleHealth) [place] [address] Yue Darby MD [facility] HOSPICE AND PALLIATIVE MEDICINE [place], [place] [id number] 04/12/2024 11:30 AM EDT [place] [address] Yue Darby MD [facility] DR HOSPICE AND [place] [address] 04/28/2024 8:30 AM EDT TH Visit (TeleHealth) [place] [address] Yue Darby MD [facility] HOSPICE AND [place] [address] documented as of this encounter Visit Diagnoses Not on filedocumented in this encounter Care Teams Sales Branch Manager Relationship Specialty Start Date End Date Donte Padgett MD [address] [place] [address] PCP - General Family Medicine 08/24/15 documented as of this encounter
--- OUTSIDE RECORDS SUMMARY | 2024-03-04 16:57 | XMS_ITS | Encounter Summary ---
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 We still do not have good explanation for pain in your groin. I suspect it is a tight muscle, but we have not been able to access it specifically for injection, or to inject it successfully. We did a trial of methadone, but he found that Vicodin works better, I think it is reasonable for you to stay on Vicodin indefinitely. I am happy to go on prescribing it. You should also remain on the Robaxin. I would like to see you back in 6 months or sooner if necessary. Cesar Fuentes MD Department of Neurology [address] [address], [place] [address] Pager: [phone], #[phone] Email: [email or web address] documented in this encounter Progress Notes * Cesar Fuentes MD - 06/22/2019 3:30 PM EST Neurology Clinic Note Chief complaint: Chronic pain History: The patient is seen in follow-up today. As noted earlier he is 28 years old and right handed, and was [...] MRI scan of the abdomen and pelvis on the hip and lumbar spine were unremarkable. [...] was seen for another opinion at the [facility].but nothing specific came of this. Additional [...] but it was worse. He resumed Vicodin. Interval History: As of 2018 the patient is doing reasonably well. The spastic paraplegia is stable. 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 Symptoms are adequately controlled on modest doses of Vicodin. He continues to use Robaxin which gives some added small benefit. He he also intermittently uses medical marijuana. Past medical history: Patient Active Problem List [...] lives with Dad and one sister in [place], [place]. 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 Review of systems: 1. Eating: Normal 2. Sleeping: Disturbed by pain 3. Bowels: Requires digital rectal stimulation for bowel evacuation 4. Bladder: Requires intermittent catheterization every 4 hours 5. All other systems were reviewed and were normal except as noted in history Medications: Current Outpatient Medications Medication Sig Dispense Refill ??? HYDROcodone-acetaminophen ([place]) 5-325 mg Tablet Take 1 tablet by mouth 3 times daily. 90 tablet 0 ??? ferrous sulfate 325 mg (65 mg iron) Tablet Take 1 tablet by mouth daily. 3 ??? acetaminophen (TYLENOL) 500 mg Tablet Take 500 mg by mouth 3 times daily as needed for Pain. ??? methocarbamol (ROBAXIN) 500 mg Tablet Take 1 tablet by mouth 4 times daily. 90 tablet 11 ??? omeprazole 20 mg Tablet, Delayed Release (E.C.) Take 20 mg by mouth daily. No current facility-administered medications for this visit. Allergies: Review of patient's allergies indicates no known allergies. Physical Exam: BP 93/60 (BP Location (NBP): Left arm, Patient Position: Sitting, BP Cuff Sizes: Large Adult (32-43cm)) Pulse 70 HEENT: Normal Heart: Normal S1, S2, no [...] serum ??? T4 Total ??? Hemogram ??? Differential, Automated EKG: EEG: X-Ray: CAT scans: MRI scans: Unremarkable MRI scan abdomen and pelvis and hips. Unremarkable MRI scan lumbar spine without contrast Impression and suggestions: The patient is doing reasonably well. 1. 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 He has relatively well preserved proximal arm movement but much less distally, and nothing in the legs. He has neurogenicbowel and bladder. All this appears to be stable. 2. The cause of his hip and groin pain is unclear. The fact that it developed several years off theoriginal injury makes me think that it is a secondary process rather than a primary myelopathic one. The fact that it is better lying down and worsened a chair makes me wonder if there is a componentof iliopsoas and other hip girdle spasm. Unfortunately, he has had unsuccessful trials of baclofen, desipramine, Neurontin, tizanidine, methadone and Tegretol. Neuromuscular blocks and more recently Botox injections have also been unhelpful. I see no option at present but to keep him on a modest dose of Vicodin, which I will continue to write for. Robaxin seems to provide small added benefit. Thank you for this consultation. I will see the patient back in 6 months or sooner if necessary. Cesar Fuentes [place] [address] Pager: [phone], #[phone] Email: [email or web address] CC: Dr. Padgett documented in this encounter Plan of Treatment Upcoming Encounters Date Type Department Care Team (Late st Contact Info) Description 03/17/2024 2:00 PM EDT TH Visit (TeleHealth) [place] [address] Yue Darby MD [facility] DR HOSPICE AND PALLIATIVE [place] [address] 04/12/2024 11:30 AM EDT [place] [address] Yue Darby MD [facility] HOSPICE AND P[place]IATIVE [place] [address] 04/28/2024 8:30 AM EDT TH Visit (TeleHealth) [place] [address] Yue Darby MD [facility] DR HOSPICE AND PALLIATIVE [place] [address] documented as of this encounter Visit 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
--- OUTSIDE RECORDS SUMMARY | 2024-03-04 16:57 | XMS_ITS | Encounter Summary ---
Author Organization [facility] Address [facility] [place] [address] Care Team Providers Care Reception Centre Manager Name Role Phone Donte Padgett MD Primary Care Provider [phone] [phone] Encounter Details Date Type Department Care Team (Late st Contact Info) Description 01/31/2021 [place] [address] Yue Darby MD [facility] HOSPICE AND [place] [address] Social History Tobacco Use Types Packs/Day Years [...] PM EDT TH Visit (TeleHealth) [place] [address] Yue Darby MD [facility] HOSPICE AND [place] [address] 04/12/2024 11:30 AM EDT [place] [address] Yue Darby MD [facility] HOSPICE [place] [address] 04/28/2024 8:30 AM EDT TH Visit (TeleHealth) [place] [address] Yue Darby MD [facility] HOSPICE [place] [address] documented as of this encounter Visit Diagnoses Not on filedocumented in this encounter Care Teams Reception Centre Manager Relationship Specialty Start Date End Date Donte Padgett MD [address] [place] [address] [address] [facility] [address] [place] [address] PCP - General Family Medicine 08/24/15 documented as of this encounter
--- OUTSIDE RECORDS SUMMARY | 2024-03-04 16:57 | XMS_ITS | Encounter Summary ---
Author Organization [facility] Address [facility] [place] [address] Care Team Providers Care Professional Programmer Analyst Name Role Phone Donte Padgett MD Primary Care Provider +1 [phone] Reason for Visit * Reason Onset Date Comments Medication Refill 03/16/2020 Encounter Details Date Type Department Care Team (Late Contact Info) Description 03/16/2020 [place] [address] Cesar Fuentes MD [facility] [place] [address] Social History Tobacco Use Types Packs/Day Years [...] PM EDT TH Visit (TeleHealth) [place] [address] Yue Darby MD [facility] HOSPICE AND PALLIATIVE MEDICINE [place], [place] [address] 04/12/2024 11:30 AM EDT [place] [address] Yue Darby MD [facility] DR HOSPICE AND [place] [address] 04/28/2024 8:30 AM EDT TH Visit (TeleHealth) [place] [address] Yue Darby MD [facility] HOSPICE AND [place] [address] documented as of this encounter Visit Diagnoses Not on filedocumented in this encounter Care Teams Professional Programmer Analyst Relationship Specialty Start Date End Date Donte Padgett MD [address] [place] [address] PCP - General Family Medicine 08/24/15 documented as of this encounter
--- OUTSIDE RECORDS SUMMARY | 2024-03-04 16:57 | XMS_ITS | Encounter Summary ---
Author Organization [facility] Address [facility] [place] [address] Care Team Providers Care Technical Sales Representative Name Role Phone Donte Padgett MD Primary Care Provider [phone] [phone] Reason for Visit * Reason Onset Date Comments Medication Refill 09/21/2018 Encounter Details Date Type Department Care Team (Late Contact Info) Description 09/21/2018 [place] [address] Cesar Fuentes MD [facility] [place] [address] Social History Tobacco Use Types Packs/Day Years [...] TH Visit (TeleHealth) [place] [address] Yue Darby MD [facility] HOSPICE AND PALLIATIVE MEDICINE [place], [place] [address] 04/12/2024 11:30 AM EDT [place] [address] Yue Darby MD [facility] DR HOSPICE [place] [address] 04/28/2024 8:30 AM EDT TH Visit (TeleHealth) [place] [address] Yue Darby MD [facility] HOSPICE [place] [address] documented as of this encounter Visit Diagnoses Not on filedocumented in this encounter Care Teams Technical Sales Representative Relationship Specialty Start Date End Date Donte Padgett MD [address] [place] [address] PCP - General Family Medicine 08/24/15 documented as of this encounter
--- OUTSIDE RECORDS SUMMARY | 2024-03-04 16:57 | XMS_ITS | Encounter Summary ---
Author Organization [facility] Address [facility] [place] [address] Care Team Providers Care High School Math Teacher Name Role Phone Donte Padgett MD Primary Care Provider +1 -[phone] Reason for Visit * Reason Onset Date Comments Medication Refill 04/13/2020 Encounter Details Date Type Department Care Team (Late st Contact Info) Description 04/13/2020 [place] [address] Cesar Fuentes MD [facility] [address] Social History Tobacco Use Types Packs/Day Years [...] PM EDT TH Visit (TeleHealth) [place] [address] Yue Daryb MD [facility] HOSPICE AND PALLIATIVE MEDICINE [place], [place] [address] 04/12/2024 11:30 AM EDT [place] [address] Yue Darby MD [facility] DR HOSPICE [place] [address] 04/28/2024 8:30 AM EDT TH Visit (TeleHealth) [place] [address] Yue Darby MD [facility] HOSPICE [place] [address] documented as of this encounter Visit Diagnoses Not on filedocumented in this encounter Care Teams High School Math Teacher Relationship Specialty Start Date End Date Donte Padgett MD [address] [place] [address] PCP - General Family Medicine 08/24/15 documented as of this encounter
--- OUTSIDE RECORDS SUMMARY | 2024-03-04 16:57 | XMS_ITS | Encounter Summary ---
Author Organization [facility] Address [facility] [place] [address] Care Team Providers Care Field Recorder Name Role Phone Donte Padgett MD Primary Care Provider [phone] [phone] Reason for Visit * Reason Onset Date Comments Medication Refill 04/17/2021 Encounter Details Date Type Department Care Team (Late st Contact Info) Description 04/17/2021 [place] [address] Cesar Fuentes MD [facility] [place] [address] Social History Tobacco Use Types Packs/Day Years [...] Telephone Encounter - Leia Alvarez CMA - 04/17/2021 2:36 PM EDT Surescript request for : hydrocodone Last rx: 03/20/21 Quantity: 120 tabs Refills:0 Last appt: 01/30/21 Next appt: 05/28/21 documented in this encounter Plan of Treatment Upcoming Encounters Date Type Department Care Team (Late st Contact Info) Description 03/17/2024 2:00 PM EDT TH Visit (TeleHealth) [place] [address] Yue Darby MD [facility] HOSPICE AND [place] [address] 04/12/2024 11:30 AM EDT [place] [address] Yue Darby MD [facility] HOSPICE [place] [address] 04/28/2024 8:30 AM EDT TH Visit (TeleHealth) [place] [address] Yue Darby MD [facility] HOSPICE [place] [address] documented as of this encounter Visit Diagnoses Not on filedocumented in this encounter Care Teams Field Recorder Relationship Specialty Start Date End Date Donte Padgett MD [address] [place] [address] PCP - General Family Medicine 08/24/15 documented as of this encounter
--- OUTSIDE RECORDS SUMMARY | 2024-03-04 16:57 | XMS_ITS | Encounter Summary ---
Author Organization [facility] Address [facility] [place] [address] Care Team Providers Care Pilot Plant Supervisor Name Role Phone Donte Padgett MD Primary Care Provider [phone] [phone] Reason for Visit * Reason Onset Date Comments Medication Refill 02/17/2020 Encounter Details Date Type Department Care Team (Late st Contact Info) Description 02/17/2020 [place] [address] Cesar Fuentes MD [facility] [place] [address] Social History Tobacco Use Types Packs/Day Years [...] encounter Miscellaneous Notes * Telephone Encounter - Dorene Hall RN - 02/17/2020 10:02 AM EDT [place] - 06/22 Unfortunately, he has had unsuccessful trials of baclofen, desipramine, Neurontin, tizanidine, methadone and Tegretol. Neuromuscular blocks and more recently Botox injections have also been unhelpful. I see no option at present but to keep him on a modest dose of Vicodin, which I will continue to write for. Robaxin seems to provide small added benefit [place] - 03/05/20 documented in this encounter Plan of Treatment Upcoming Encounters Date Type Department Care Team (Late st Contact Info) Description 03/17/2024 2:00 PM EDT TH Visit (TeleHealth) [place] [address] Yue Darby MD [facility] DR HOSPICE AND [place] [address] 04/12/2024 11:30 AM EDT [place] [address] Yue Darby MD [facility] HOSPICE AND [place] [address] 04/28/2024 8:30 AM EDT TH Visit (TeleHealth) [place] [address] Yue Darby MD [facility] HOSPICE AND [place]AT[place] [address] documented as of this encounter Visit Diagnoses Not on filedocumented in this encounter Care Teams Pilot Plant Supervisor Relationship Specialty Start Date End Date Donte Padgett MD [address] [place] [address] PCP - General Family Medicine 08/24/15 documented as of this encounter
--- OUTSIDE RECORDS SUMMARY | 2024-03-04 16:57 | XMS_ITS | Encounter Summary ---
Author Organization [facility] Address [facility] [place] [address] Care Team Providers Care Metal Grinder Name Role Phone Donte Padgett MD Primary Care Provider +1 -[phone] Encounter Details Date Type Department Care Team (Late st Contact Info) Description 11/30/2020 9:30 AM EDT TH Visit (TeleHealth) [place] [address] Cesar Fuentes MD [facility] [place] [address] Spasticity; Groin pain, left Social History Tobacco [...] as of this encounter Progress Notes * Cesar Fuentes MD - 11/30/2020 9:30 AM EDT Neurology Clinic Note Chief complaint: Chronic pain History: The patient was contacted by telephone, because the computer connection did not work. The patient is aware that this is a remote visit comparable to an office visit, and that a service charge is generated. The patient would like to proceed with the conversation. As noted earlier he is 30 years [...] was seen for another opinion at the [facility].but nothing specific came of this. Additional [...] worse. He remains on chronic opiate therapy. Past medical history: Patient Active Problem List [...] lives with Dad and one sister in [place], [place]. 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 Review of systems: 1. Eating: Normal 2. Sleeping: Disturbed by pain 3. Bowels: Requires digital rectal stimulation for bowel evacuation 4. Bladder: Requires intermittent catheterization every 4 hours 5. All other systems were reviewed and were normal except as noted in history Medications: Current Outpatient Medications Medication Sig Dispense Refill ??? HYDROcodone-acetaminophen ([place]) 5-325 mg Tablet Take 1 tablet by mouth 3 times daily. 90 tablet 0 ??? naproxen sodium (ANAPROX) 220 mg Tablet [...] allergies indicates no known allergies. Physical Exam: As this is a telephone visit the patient was not examined. Previous findings are given below. BP 93/60 (BP Location (NBP): Left arm, Patient Position: Sitting, BP Cuff Sizes: Large Adult (32-43cm) Pulse 70 HEENT: Normal Heart: Normal S1, [...] is becoming tolerant to opioid therapy. I have discussed with all my chronic opioid therapy patients that I will not dose escalate. I will see him here quicklyfor a follow-up visit, make sure there is no new pathology, and then try to work out a solution that includes the present dose of opiates but does not embark on a cycle of dose escalation Thank you for this consultation. I will see the patient back in a few weeks or sooner if necessary Cesar Fuentes [place] [address] Pager: [phone], #[phone] Email: [email or web address] CC: Dr. Padgett documented in this encounter Plan of Treatment Upcoming Encounters Date Type Department Care Team (Late st Contact Info) Description 03/17/2024 2:00 PM EDT TH Visit (TeleHealth) Neurology at [place] [id number] Yue Darby MD [facility] DR HOSPICE AND [place] [address] 04/12/2024 11:30 AM EDT [place] [address] Yue Darby MD [facility] HOSPICE AND [place] [address] 04/28/2024 8:30 AM EDT TH Visit (TeleHealth) [place] [address] Yue Darby MD [facility] HOSPICE AND [place]AT[place] [address] documented as of this encounter Visit Diagnoses Diagnosis Spasticity Abnormal involuntary movements Groin pain, left documented in this encounter Care Teams Metal Grinder Relationship Specialty Start Date End Date Donte Padgett MD [address] [facility] 1 [place] [address] PCP - General Family Medicine 08/24/15 documented as of this encounter
--- OUTSIDE RECORDS SUMMARY | 2024-03-04 16:57 | XMS_ITS | Encounter Summary ---
Author Organization [facility] Address [facility] [place] [address] Care Team Providers Care Chemical Plant Worker Name Role Phone Donte Padgett MD Primary Care Provider +1 [phone] Reason for Visit * Reason Onset Date Comments Medication Refill 07/15/2021 Encounter Details Date Type Department Care Team (Late st Contact Info) Description 07/15/2021 [place] [phone] Cesar Fuentes MD [facility] [place] [address] Social History Tobacco Use Types Packs/Day Years [...] PM EDT TH Visit (TeleHealth) [place] [address] Yue Darby MD [facility] HOSPICE AND [place]IAT[place] [address] 04/12/2024 11:30 AM EDT [place] [address] Yue Darby MD [facility] HOSPICE AND [place]AT[place] [address] 04/28/2024 8:30 AM EDT TH Visit (TeleHealth) [place] [address] Yue Darby MD [facility] HOSPICE AND [place]IATIVE [place] [address] documented as of this encounter Visit Diagnoses Not on filedocumented in this encounter Care Teams Chemical Plant Worker Relationship Specialty Start Date End Date Donte Padgett MD [address] [place] [address] PCP - General Family Medicine 08/24/15 documented as of this encounter
--- OUTSIDE RECORDS SUMMARY | 2024-03-04 16:57 | XMS_ITS | Encounter Summary ---
Author Organization [facility] Address [facility] [address] Care Team Providers Care Air Liaison And Special Staff Name Role Phone Donte Padgett MD Primary Care Provider [phone] [phone] Reason for Visit * Reason Onset Date Comments Medication Refill 06/13/2021 Encounter Details Date Type Department Care Team (Late st Contact Info) Description 06/13/2021 [place] [address] Cesar Fuentes MD [facility] [place] [address] Social History Tobacco Use Types Packs/Day Years [...] Telephone Encounter - Leia Alvarez CMA - 06/13/2021 12:01 PM EST Surescript request for : hydrocodone Last rx: 05/16/21 Quantity: 120 Refills: 0 Last appt: 01/30/21 Next appt: 07/19/21 documented in this encounter Plan of Treatment Upcoming Encounters Date Type Department Care Team (Late st Contact Info) Description 03/17/2024 2:00 PM EDT TH Visit (TeleHealth) [place] [address] Yue Darby MD [facility] HOSPICE AND [place] [address] 04/12/2024 11:30 AM EDT [place] [address] Yue Darby MD [facility] HOSPICE [place] [address] 04/28/2024 8:30 AM EDT TH Visit (TeleHealth) [place] [address] Yue Darby MD [facility] HOSPICE [place] [address] documented as of this encounter Visit Diagnoses Not on filedocumented in this encounter Care Teams Air Liaison And Special Staff Relationship Specialty Start Date End Date Donte Padgett MD [address] [facility] 1 [place] [address] PCP - General Family Medicine 08/24/15 documented as of this encounter
--- OUTSIDE RECORDS SUMMARY | 2024-03-04 16:57 | XMS_ITS | Encounter Summary ---
Author Organization [facility] Address [facility] [place] [address] Care Team Providers Care Yard Rigger Name Role Phone Donte Padgett MD Primary Care Provider [phone] [phone] Reason for Visit * Reason Onset Date Comments Medication Refill 09/20/2019 Encounter Details Date Type Department Care Team (Late st Contact Info) Description 09/20/2019 [place] [address] Cesar Fuentes MD [facility] [place] [address] Social History Tobacco Use Types Packs/Day Years [...] PM EDT TH Visit (TeleHealth) [place] [address] Yue Darby MD [facility] HOSPICE AND PALLIATIVE MEDICINE [place], [place] [address] 04/12/2024 11:30 AM EDT [place] [address] Yue Darby MD [facility] DR HOSPICE AND [place] [address] 04/28/2024 8:30 AM EDT TH Visit (TeleHealth) [place] [address] Yue Darby MD [facility] HOSPICE AND [place] [address] documented as of this encounter Visit Diagnoses Not on filedocumented in this encounter Care Teams Yard Rigger Relationship Specialty Start Date End Date Donte Padgett MD [address] [place] [address] PCP - General Family Medicine 08/24/15 documented as of this encounter
--- OUTSIDE RECORDS SUMMARY | 2024-03-04 16:57 | XMS_ITS | Encounter Summary ---
Author Organization [facility] Address [facility] [place] [address] Care Team Providers Care Hot Stick Man Name Role Phone Donte Padgett MD Primary Care Provider [phone] [phone] Reason for Visit * Reason Onset Date Comments Medication Refill 05/20/2019 Encounter Details Date Type Department Care Team (Late Contact Info) Description 05/20/2019 [place] [address] [facility] [place] [address] Social History Tobacco Use Types Packs/Day Years [...] PM EDT TH Visit (TeleHealth) [place] [address] [facility] HOSPICE AND PALLIATIVE MEDICINE [place], [place] [address] 04/12/2024 11:30 AM EDT [place] [address] [facility] DR HOSPICE [place] [address] 04/28/2024 8:30 AM EDT TH Visit (TeleHealth) [place] [address] [facility] HOSPICE [place] [address] documented as of this encounter Visit Diagnoses Not on filedocumented in this encounter Care Teams Hot Stick Man Relationship Specialty Start Date End Date Donte Padgett MD [address] [place] [address] PCP - General Family Medicine 08/24/15 documented as of this encounter
--- OUTSIDE RECORDS SUMMARY | 2024-03-04 16:57 | XMS_ITS | Encounter Summary ---
Author Organization [facility] Address [facility] [place] [address] Care Team Providers Care Banking Teacher Name Role Phone Donte Padgett MD Primary Care Provider [phone] [phone] Reason for Visit * Reason Onset Date Comments TeleHealth 07/17/2021 Encounter Details Date Type Department Care Team (Late st Contact Info) Description 07/17/2021 Telephone [place] [address] Yue Darby MD [facility] HOSPICE AND [place] [address] TeleHealth Social History Tobacco Use Types Packs/Day [...] Telephone Encounter - Mickie Esparza RN - 07/17/2021 9:33 AM EST Spoke to this patient by phone to review their medications and allergies prior to their upcoming tele-appointment with the Neurology provider. Medications and allergies reviewed, verified and updatedas needed. documented in this encounter Plan of Treatment Upcoming Encounters Date Type Department Care Team (Late st Contact Info) Description 03/17/2024 2:00 PM EDT TH Visit (TeleHealth) [place] [address] Yue Darby MD [facility] HOSPICE AND [place] [address] 04/12/2024 11:30 AM EDT [place] [address] Yue Darby MD [facility] HOSPICE AND [place] [address] 04/28/2024 8:30 AM EDT TH Visit (TeleHealth) [place] [address] Yue Darby MD [facility] HOSPICE AND [place] [address] documented as of this encounter Visit Diagnoses Not on filedocumented in this encounter Care Teams Banking Teacher Relationship Specialty Start Date End Date Donte Padgett MD [address] [place] [address] [address] [facility] 1 [place] [address] PCP - General Family Medicine 08/24/15 documented as of this encounter
--- OUTSIDE RECORDS SUMMARY | 2024-03-04 16:57 | XMS_ITS | Encounter Summary ---
Author Organization [facility] Address [facility] [place] [address] Care Team Providers Care Taker Off Hemp Fiber Name Role Phone Donte Padgett MD Primary Care Provider [phone] [phone] Reason for Visit * Reason Onset Date Comments Medication Refill 11/18/2019 Encounter Details Date Type Department Care Team (Late Contact Info) Description 11/18/2019 [place] [address] Cesar Fuentes MD [facility] [place] [address] Social History Tobacco Use Types Packs/Day Years [...] PM EDT TH Visit (TeleHealth) [place] [address] Yue Darby MD [facility] HOSPICE AND PALLIATIVE MEDICINE [place], [place] [address] 04/12/2024 11:30 AM EDT [place] [address] Yue Darby MD [facility] DR HOSPICE [place] [address] 04/28/2024 8:30 AM EDT TH Visit (TeleHealth) [place] [address] Yue Darby MD [facility] HOSPICE AND [place] [address] documented as of this encounter Visit Diagnoses Not on filedocumented in this encounter Care Teams Taker Off Hemp Fiber Relationship Specialty Start Date End Date Donte Padgett MD [address] [place] [address] PCP - General Family Medicine 08/24/15 documented as of this encounter
--- OUTSIDE RECORDS SUMMARY | 2024-03-04 16:57 | XMS_ITS | Encounter Summary ---
Author Organization [facility] Address [facility] [place] [address] Care Team Providers Care Senior Copywriter Name Role Phone Donte Padgett MD Primary Care Provider +1 [phone] Reason for Visit * Reason Onset Date Comments Medication Refill 11/18/2018 Encounter Details Date Type Department Care Team (Late Contact Info) Description 11/18/2018 [place] [address] Cesar Fuentes MD [facility] [place] [address] Social History Tobacco Use Types Packs/Day Years [...] PM EDT TH Visit (TeleHealth[place] [address] Yue Darby MD [facility] HOSPICE AND PALLIATIVE MEDICINE [place], [place] [address] 04/12/2024 11:30 AM EDT [place] [address] Yue Darby MD [facility] DR HOSPICE [place] [address] 04/28/2024 8:30 AM EDT TH Visit (TeleHealth) [place] [address] Yue Darby MD [facility] HOSPICE [place] [address] documented as of this encounter Visit Diagnoses Not on filedocumented in this encounter Care Teams Senior Copywriter Relationship Specialty Start Date End Date Donte Padgett MD [address] [place] [address] PCP - General Family Medicine 08/24/15 documented as of this encounter
--- OUTSIDE RECORDS SUMMARY | 2024-03-04 16:57 | XMS_ITS | Encounter Summary ---
Author Organization [facility] [place] [address] Care Team Providers Care Corner Cutter Machine Operator Name Role Phone Donte Padgett MD Primary Care Provider +1 -[phone] Encounter Details Date Type Department Care Team (Late st Contact Info) Description 12/07/2020 10:00 AM EDT TH Visit (TeleHealth) Neurology at [place] [phone] Cesar Fuentes MD [facility] [place] [address] Groin pain, left Social History Tobacco Use [...] Progress Notes * Cesar Fuentes MD - 12/07/2020 10:00 AM EDT Neurology attending Visit canceled because patient complaining of worse pain needs re-examination in person. We will reschedule as soon as possible Cesar Fuentes MD Professor of neurology, [facility] [employer] at [facility] Department of Neurology, [place] [address], [place] [address], [facility] Pager: [phone], #[phone] Email: [email or web address] documented in this encounter Plan of Treatment Upcoming Encounters Date Type Department Care Team (Late st Contact Info) Description 03/17/2024 2:00 PM EDT TH Visit (TeleHealth) [place] [address] Yue Darby MD [facility] DR HOSPICE [place] [address] 04/12/2024 11:30 AM EDT Office [place] [address] Yue Darby MD [facility] DR HOSPICE [place] [address] 04/28/2024 8:30 AM EDT TH Visit (TeleHealth) [place] [address] Yue Darby MD [facility] DR HOSPICE [place] [address] documented as of this encounter Visit Diagnoses Diagnosis Groin pain, left documented in this encounter Care Teams Corner Cutter Machine Operator Relationship Specialty Start Date End Date Donte Padgett MD [address] [place] [address] PCP - General Family Medicine 08/24/15 documented as of this encounter
--- OUTSIDE RECORDS SUMMARY | 2024-03-04 16:57 | XMS_ITS | Encounter Summary ---
Author Organization [facility] Address [facility] [place] [address] Care Team Providers Care Truck Driver Supervisor Name Role Phone Donte Padgett MD Primary Care Provider +1 -[phone] Reason for Visit * Reason Onset Date Comments Medication Refill 07/13/2020 Encounter Details Date Type Department Care Team (Late st Contact Info) Description 07/13/2020 [place] [address] Cesar Fuentes MD [facility] [place] [address] Social History Tobacco Use Types Packs/Day Years [...] PM EDT TH Visit (TeleHealth) [place] [address] Yue Darby MD [facility] HOSPICE [place] [address] 04/12/2024 11:30 AM EDT [place] [address] Yue Darby MD [facility] HOSPICE [place] [address] 04/28/2024 8:30 AM EDT TH Visit (TeleHealth) [place] [address] Yue Darby MD [facility] HOSPICE [place] [address] documented as of this encounter Visit Diagnoses Not on filedocumented in this encounter Care Teams Truck Driver Supervisor Relationship Specialty Start Date End Date Donte Padgett MD [address] [place] [address] PCP - General Family Medicine 08/24/15 documented as of this encounter
--- OUTSIDE RECORDS SUMMARY | 2024-03-04 16:57 | XMS_ITS | Encounter Summary ---
Author Organization [facility] Address [facility] [place] [address] Care Team Providers Care Stummel Selector Name Role Phone Donte Padgett MD Primary Care Provider [phone] [phone] Reason for Visit * Reason Onset Date Comments Medication Refill 01/15/2021 Encounter Details Date Type Department Care Team (Late st Contact Info) Description 01/15/2021 [place] [address] Cesar Fuentes MD [facility] [place] [address] Social History Tobacco Use Types Packs/Day Years [...] Telephone Encounter - Leia Alvarez CMA - 01/15/2021 9:23 AM EDT Surescript request for : hydrocodone Last rx: 12/18/20 Quantity: 90 tabs Refills: 0 Last appt: 12/07/20 Next appt: 01/30/21 documented in this encounter Plan of Treatment Upcoming Encounters Date Type Department Care Team (Late st Contact Info) Description 03/17/2024 2:00 PM EDT TH Visit (TeleHealth) [place] [address] Yue Darby MD [facility] HOSPICE [place] [address] 04/12/2024 11:30 AM EDT [place] [address] Yue Darby MD [facility] HOSPICE [place] [address] 04/28/2024 8:30 AM EDT TH Visit (TeleHealth) [place] [address] Yue Darby MD [facility] HOSPICE [place] [address] documented as of this encounter Visit Diagnoses Not on filedocumented in this encounter Care Teams Stummel Selector Relationship Specialty Start Date End Date Donte Padgett MD [address] [place] [address] PCP - General Family Medicine 08/24/15 documented as of this encounter
--- OUTSIDE RECORDS SUMMARY | 2024-03-04 16:57 | XMS_ITS | Encounter Summary ---
Author Organization [facility] [place] [address] Care Team Providers Care Impregnating Helper Name Role Phone Donte Padgett MD Primary Care Provider [phone] [phone] Encounter Details Date Type Department Care Team (Late st Contact Info) Description 03/05/2020 3:00 PM EDT [place] [address] Cesar Fuentes MD [facility] [place] [address] Spasticity; Groin pain, left Social History Tobacco [...] Sign Reading Time Taken Comments Blood Pressure 94/60 03/05/2020 3:26 PM EDT Pulse 68 03/05/2020 3:26 PM EDT Temperature - - Respiratory Rate - - Oxygen Saturation 98% 03/05/2020 3:26 PM EDT Inhaled Oxygen Concentration - - Weight 95.3 kg (210 lb) 03/05/2020 3:26 PM EDT Height 190.5 cm (6' 3) 03/05/2020 3:26 PM EDT Body Mass Index 26.25 03/05/2020 3:26 PM EDT documented in this encounter Patient Instructions * Patient Instructions* Cesar Fuentes MD - 03/05/2020 3:00 PM EDT I think you are doing about the same overall. We still do not have good explanation for pain in your groin. I suspect it is a tight muscle, but we have not been able to access it specifically for injection, or to inject it successfully. I think it is reasonable that he remain on the Vicodin for the foreseeable future I would like to see you back in 6 months or sooner if necessary. We can give the next visit via Telehealth. My paralegal secretary can help you get that set up Cesar Fuentes MD Department of Neurology [address] [address], [place] [address] Pager: [phone], #[phone] Email: [email or web address] documented in this encounter Progress Notes * Cesar Fuentes MD - 03/05/2020 3:00 PM EDT Neurology Clinic Note Chief complaint: [...] was seen for another opinion at the [facility].but nothing specific came of this. Additional anesthetic [...] He he also intermittently uses medical marijuana. Interval History: As of 2019 the situation is basically unchanged. 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 He is still using the Vicodin. He stopped the Robaxin is being unhelpful. He also intermittently uses Naprosyn and medicalmarijuana. Past medical history: Patient Active Problem List [...] lives with Dad and one sister in [place], [place]. 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 Review of systems: 1. Eating: Normal 2. Sleeping: Disturbed by pain 3. Bowels: Requires digital rectal stimulation for bowel evacuation 4. Bladder: Requires intermittent catheterization every 4 hours 5. All other systems were reviewed and were normal except as noted in history Medications: Current Outpatient Medications Medication Sig Dispense Refill ??? naproxen sodium (ANAPROX) 220 mg Tablet Take 220 mg by mouth 2 times daily (with meals). ??? HYDROcodone-acetaminophen ([place]) 5-325 mg Tablet Take 1 tablet by [...] Unfortunately, he has had unsuccessful trials of baclofen,desipramine, Neurontin, tizanidine, methadone and Tegretol. Neuromuscular blocks and more recently Botox injections have also been unhelpful. I see no option at present but to keep him on a modest dose of Vicodin, which I will continue to write for. Thank you for this consultation. I will see the patient back in 6 months or sooner if necessary. Cesar Fuentes MD [place] [address] Pager: [phone], #[phone] Email: [email or web address] CC: Dr. Padgett documented in this encounter Plan of Treatment Upcoming Encounters Date Type Department Care Team (Late st Contact Info) Description 03/17/2024 2:00 PM EDT TH Visit (TeleHealth) [place] [address] uYe Darby MD [facility] DR HOSPICE AND P[place]IAT[place] [address] 04/12/2024 11:30 AM EDT [place] [address] Yue Darby MD [facility] DR HOSPICE AND P[place] [address] 04/28/2024 8:30 AM EDT TH Visit (TeleHealth) [place] [address] Yue Darby MD [facility] HOSPICE [facility] P[place]IAT[place] [address] documented as of this encounter Visit Diagnoses Diagnosis Spasticity Abnormal involuntary movements Groin pain, left documented in this encounter Care Teams Impregnating Helper Relationship Specialty Start Date End Date Donte Padgett MD [address] [place] [address] PCP - General Family Medicine 08/24/15 documented as of this encounter
--- OUTSIDE RECORDS SUMMARY | 2024-03-04 16:57 | XMS_ITS | Encounter Summary ---
Author Organization [facility] Address [facility] [place] [address] Care Team Providers Care Sap Grc Security Name Role Phone Donte Padgett MD Primary Care Provider [phone] [phone] Reason for Visit * Reason Onset Date Comments Medication Refill 01/19/2020 Encounter Details Date Type Department Care Team (Late Contact Info) Description 01/19/2020 [place] [address] Cesar Fuetnes MD [facility] [place] [address] Social History Tobacco Use Types Packs/Day Years [...] PM EDT TH Visit (TeleHealth) [place] [address] Yue Darby MD [facility] HOSPICE AND PALLIATIVE MEDICINE [place], [place] [address] 04/12/2024 11:30 AM EDT [place] [address] Yue Darby MD [facility] DR HOSPICE AND [place] [address] 04/28/2024 8:30 AM EDT TH Visit (TeleHealth) [place] [address] Yue Darby MD [facility] HOSPICE AND [place] [address] documented as of this encounter Visit Diagnoses Not on filedocumented in this encounter Care Teams Sap Grc Security Relationship Specialty Start Date End Date Donte Padgett MD [address] [place] [address] PCP - General Family Medicine 08/24/15 documented as of this encounter
--- OUTSIDE RECORDS SUMMARY | 2024-03-04 16:58 | XMS_ITS | Encounter Summary ---
Author Organization [facility] Address [facility] [place] [address] Care Team Providers Care Linux System Engineer Name Role Phone Donte Padgett MD Primary Care Provider [phone] [phone] Reason for Visit * Reason Onset Date Comments Medication Refill 06/10/2018 Encounter Details Date Type Department Care Team (Late Contact Info) Description 06/10/2018 [place] [address] Cesar Fuentes MD [facility] [place] [address] Social History Tobacco Use Types Packs/Day Years [...] PM EDT TH Visit (TeleHealth[place] [address] Yue Darby MD [facility] HOSPICE AND PALLIATIVE MEDICINE [place], [place] [id number] 04/12/2024 11:30 AM EDT [place] [address] Yue Darby MD [facility] DR HOSPICE AND [place] [address] 04/28/2024 8:30 AM EDT TH Visit (TeleHealth) [place] [address] Yue Darby MD [facility] HOSPICE AND [place] [address] documented as of this encounter Visit Diagnoses Not on filedocumented in this encounter Care Teams Linux System Engineer Relationship Specialty Start Date End Date Donte Padgett MD [address] [place] [address] PCP - General Family Medicine 08/24/15 documented as of this encounter
--- OUTSIDE RECORDS SUMMARY | 2024-03-04 16:58 | XMS_ITS | Encounter Summary ---
Author Organization [facility] [place] [address] Care Team Providers Care Mergers And Acquisitions Manager Name Role Phone Donte Padgett MD Primary Care Provider [phone] [phone] Reason for Visit * Reason Onset Date Comments Medication Refill 11/11/2017 Encounter Details Date Type Department Care Team (Late Contact Info) Description 11/11/2017 [place] [address] Cesar Fuentes MD [facility] [place] [address] Social History Tobacco Use Types Packs/Day Years [...] PM EDT TH Visit (TeleHealth) [place] [address] Yue Darby MD [facility] HOSPICE AND PALLIATIVE MEDICINE [place], [place] [id number] 04/12/2024 11:30 AM EDT [place] [address] Yue Darby MD [facility] DR HOSPICE AND P[place]IATIVE [place] [address] 04/28/2024 8:30 AM EDT TH Visit (TeleHealth) [place] [address] Yue Darby MD [facility] HOSPICE AND PALLIATIVE [place] [address] documented as of this encounter Visit Diagnoses Not on filedocumented in this encounter Care Teams Mergers And Acquisitions Manager Relationship Specialty Start Date End Date Donte Padgett MD [address] [place] [address] PCP - General Family Medicine 08/24/15 documented as of this encounter
--- OUTSIDE RECORDS SUMMARY | 2024-03-04 16:58 | XMS_ITS | Encounter Summary ---
Author Organization [facility] [place] [address] Care Team Providers Care Parcel Post Delivery Name Role Phone Donte Padgett MD Primary Care Provider +1 [phone] Encounter Details Date Type Department Care Team (Late st Contact Info) Description 02/29/2016 Telephone [place] [address] Yovana Lamar Social History Tobacco Use Types Packs/Day Years Used Date Smoking Tobacco: Every Day Cigarettes Alcohol Use Standard Drinks/Week Comments No 0 (1 standard drink = 0.6 oz pur e alcohol) Sex and Gender Information Value Date Recorded Sex Assigned at Not on file Gender Identity Not on file Sexual Orientation Not on file documented as of this encounter Miscellaneous Notes * Telephone Encounter - Yovana Rivas - 02/29/2016 9:28 AM EDT Patient is due for the following with Dr. Aviles: ?? 3 mo f/u (January 2016) I have attempted to reach this patient several times with no success: ?? 01/13: Letterx1 01/29: Letterx2 02/11: Letterx3 02/28: Final Letter documented in this encounter Plan of Treatment Upcoming Encounters Date Type Department Care Team (Late st Contact Info) Description 03/17/2024 2:00 PM EDT TH Visit (TeleHealth) [place] [address] Yue Darby MD [facility] HOSPICE AND [place] [address] 04/12/2024 11:30 AM EDT Office [place] [address] Yue Darby MD [facility] HOSPICE [place] [address] 04/28/2024 8:30 AM EDT TH Visit (TeleHealth) [place] [address] Yue Darby MD [facility] HOSPICE [place] [address] documented as of this encounter Visit Diagnoses Not on filedocumented in this encounter Care Teams Parcel Post Delivery Relationship Specialty Start Date End Date Donte Padgett MD [address] [place] [address] PCP - General Family Medicine 08/24/15 documented as of this encounter
--- OUTSIDE RECORDS SUMMARY | 2024-03-04 16:58 | XMS_ITS | Encounter Summary ---
Author Organization [facility] [place] [address] Care Team Providers Care Marketing Admin Name Role Phone Donte Padgett MD Primary Care Provider [phone] [phone] Encounter Details Date Type Department Care Team (Late st Contact Info) Description 09/09/2018 Telephone [place] [address] Cesar Fuentes MD [facility] [place] [place] [address] Social History Tobacco Use Types Packs/Day Years [...] Encounter - Patricia Busch RN - 09/10/2018 8:[address] Fuentes: Have him take methadone 5 mg tid with one regular tylenol tid ??For a week. If he is still as badly off then Please put him back on vicodin 5/325 tid. Call placed to pt and pt informed that Dr. Fuentes wants him to now take Methadone 5mg and 1 regular tylenol together three times a day and call in one week with update and depending on report Dr. Fuentes will adjust meds further Pt agreeable to this plan. * Telephone Encounter - Patricia Busch RN - 09/09/2018 3:18 PM EST Last appt 07/26/18 FUV -not yet sched See phone note 08/10/18 Pt calls today to report that he has been taking methadone 5mg twice a day and this is not helping his pain. He is off the vicodin completely. Pt states that is pain was a 3-4/10 when taking the vicodin and since change tot he methadone the pain is 5-6/10. Pt states that at last appt Dr. Fuentes said there were other medication options and pt asks if he can now start taking oxy or go back to taking vicodin. Pt reports that he will be out of the methadone as of tomorrow am. Pt reports no other changes since appt. Current meds: Outpatient Medications Marked as Taking for the 09/09/18 encounter (Telephone) with Cesar Fuentes MD Medication Sig Dispense Refill ??? ferrous sulfate 325 mg (65 mg iron) Tablet Take 1 tablet by mouth daily. 3 ??? methadone (DOLOPHINE) 5 mg Tablet take methadone 5 mg daily and decrease vicodin to 5 mg daily-increase methadone to 5 mg BID when out of vicodin 60 tablet 0 ??? acetaminophen (TYLENOL) 500 mg Tablet Take 500 mg by mouth 3 times daily as needed for Pain. ??? methocarbamol (ROBAXIN) 500 mg Tablet Take 1 tablet by mouth 4 times daily. 90 tablet 11 ??? omeprazole 20 mg Tablet, Delayed Release (E.C.) Take 20 mg by mouth daily. msg to Dr. Fuentes for review and input. * Telephone Encounter - Hannah Haysdave Leavitt - 09/09/2018 1:44 PM EST Clinical [facility] Message ( ask patient if they were asked to call with update - if answer is no do not use this template) Caller: Aly If not Pt / Relation to pt: self Call back Number: Best time to reach caller: anytime Reason for call: patient calling to give update Update on Medication Name of Medication: methadone (DOLOPHINE) 5 mg Tablet Patient Update/ Report: Pt reports that after a month this is ineffective. Per directives, he has called in to advise of same. Does patient require call back: Yes Message/Additional questions for the nurse: Kindly call to discuss. Disposition of Call ?? Patient with questions/additional needs message forwarded to nurse documented in this encounter Plan of Treatment Upcoming Encounters Date Type Department Care Team (Late st Contact Info) Description 03/17/2024 2:00 PM EDT TH Visit (TeleHealth) Neurology at [place] [phone] Yue Darby MD [facility] [address] HOSPICE [place] [address] 04/12/2024 11:30 AM EDT Office [place] [address] Yue Darby MD [facility] DR HOSPICE [place] [address] 04/28/2024 8:30 AM EDT TH Visit (TeleHealth) [place] [address] Yue Darby MD [facility] HOSPICE [place] [address] documented as of this encounter Visit Diagnoses Not on filedocumented in this encounter Care Teams Marketing Admin Relationship Specialty Start Date End Date Donte Padgett MD [address] [place] [address] [address] [facility] [address] [place] [address] PCP - General Family Medicine 08/24/15 documented as of this encounter
--- OUTSIDE RECORDS SUMMARY | 2024-03-04 16:58 | XMS_ITS | Encounter Summary ---
Author Organization [facility] [place] [address] Care Team Providers Care Recruitment Manager Name Role Phone Donte Padgett MD Primary Care Provider [phone] [phone] Reason for Referral * Consultation (Routine) - Closed Specialty Diagnoses / Procedures Referred By Contac t Referred To Contact Neurology Diagnoses C6 spinal cord injury, subsequent encounter Mika East MD [facility] [place] [address] Cesar Fuentes MD [facility] [place] [address] Referral ID Status Reason Start Date Expiration Date V isits Requested Visits Authorized [id number] Closed Consult, Test & Treat 02/26/2016 02/25/2017 1 1 Reason for Visit * Reason Onset Date Comments Medication Refill 02/26/2016 Encounter Details Date Type Department Care Team (Late st Contact Info) Description 02/26/2016 Ref[place] [address] Mika East MD [facility] [place] [address] C6 spinal cord injury, subsequent encounter Social History Tobacco Use Types Packs/Day Years [...] PM EDT TH Visit (TeleHealth) [place] [address] Yue Darby MD [facility] DR HOSPICE AND [place] [address] 04/12/2024 11:30 AM EDT Office [place] [address] Yue Darby MD [facility] HOSPICE AND [place] [address] 04/28/2024 8:30 AM EDT TH Visit (TeleHealth) [place] [address] Yue Darby MD [facility] DR HOSPICE AND [place] [address] Scheduled Referrals Name Type Priority Associated Diagnoses Orde r Schedule Referral to Neurology Outpatient Referral Routine C6 spinal cord injury, subsequent encounter Ordered: 02/26/2016 documented as of this encounter Visit Diagnoses Diagnosis C6 spinal cord injury, subsequent encounter documented in this encounter Care Teams Recruitment Manager Relationship Specialty Start Date End Date Donte Padgett MD [address] [place] [address] PCP - General Family Medicine 08/24/15 documented as of this encounter
--- OUTSIDE RECORDS SUMMARY | 2024-03-04 16:58 | XMS_ITS | Encounter Summary ---
Author Organization [facility] [place] [address] Care Team Providers Care Research Chemical Engineer Name Role Phone Donte Padgett MD Primary Care Provider [phone] [phone] Reason for Visit * Reason Onset Date Comments Medication Refill 01/07/2017 Encounter Details Date Type Department Care Team (Late Contact Info) Description 01/07/2017 [place] [address] Cesar Fuentes MD [facility] [place] [address] Social History Tobacco Use Types Packs/Day Years [...] PM EDT TH Visit (TeleHealth[place] [address] Yue Darby MD [facility] HOSPICE AND PALLIATIVE MEDICINE [place], [place] [address] 04/12/2024 11:30 AM EDT [place] [address] Yue Darby MD [facility] DR HOSPICE [place] [address] 04/28/2024 8:30 AM EDT TH Visit (TeleHealth) [place] [address] Yue Darby MD [facility] HOSPICE [place] [address] documented as of this encounter Visit Diagnoses Not on filedocumented in this encounter Care Teams Research Chemical Engineer Relationship Specialty Start Date End Date Donte Padgett MD [address] [place] [address] PCP - General Family Medicine 08/24/15 documented as of this encounter
--- OUTSIDE RECORDS SUMMARY | 2024-03-04 16:58 | XMS_ITS | Encounter Summary ---
Author Organization [facility] [place] [address] Care Team Providers Care Director Cost Name Role Phone Donte Padgett MD Primary Care Provider +1 [phone] Reason for Visit * Reason Onset Date Comments Medication Refill 04/08/2018 Encounter Details Date Type Department Care Team (Late Contact Info) Description 04/08/2018 [place] [address] Cesar Fuentes MD [facility] [place] [address] Social History Tobacco Use Types Packs/Day Years [...] PM EDT TH Visit (TeleHealth) [place] [address] Yue Daryb MD [facility] HOSPICE AND PALLIATIVE MEDICINE [place], [place] [address] 04/12/2024 11:30 AM EDT [place] [address] Yue Darby MD [facility] DR HOSPICE AND [place] [address] 04/28/2024 8:30 AM EDT TH Visit (TeleHealth) [place] [address] Yue Darby MD [facility] HOSPICE AND [place] [address] documented as of this encounter Visit Diagnoses Not on filedocumented in this encounter Care Teams Director Cost Relationship Specialty Start Date End Date Donte Padgett MD [address] [place] [address] PCP - General Family Medicine 08/24/15 documented as of this encounter
--- OUTSIDE RECORDS SUMMARY | 2024-03-04 16:58 | XMS_ITS | Encounter Summary ---
Author Organization [facility] [place] [address] Care Team Providers Care Circular Shear Operator Name Role Phone Donte Padgett MD Primary Care Provider [phone] [phone] Reason for Visit * Reason Onset Date Comments Medication Refill 03/11/2017 Encounter Details Date Type Department Care Team (Late Contact Info) Description 03/11/2017 [place] [address] Cesar Fuentes MD [facility] [place] [address] Social History Tobacco Use Types Packs/Day Years [...] PM EDT TH Visit (TeleHealth) [place] [address] Yue Darby MD [facility] HOSPICE AND PALLIATIVE MEDICINE [place], [place] [address] 04/12/2024 11:30 AM EDT Office [place] [address] Yue Darby MD [facility] DR HOSPICE [place] [address] 04/28/2024 8:30 AM EDT TH Visit (TeleHealth) [place] [address] Yue Darby MD [facility] HOSPICE [place] [address] documented as of this encounter Visit Diagnoses Not on filedocumented in this encounter Care Teams Circular Shear Operator Relationship Specialty Start Date End Date Donte Padgett MD [address] [place] [address] PCP - General Family Medicine 08/24/15 documented as of this encounter
--- OUTSIDE RECORDS SUMMARY | 2024-03-04 16:58 | XMS_ITS | Encounter Summary ---
Author Organization [facility] [address] Care Team Providers Care Front Desk Representative Name Role Phone Donte Padgett MD Primary Care Provider [phone] [phone] Reason for Referral * High Dollar Medication (Routine) - Specialty Diagnoses / Procedures Referred By Contac t Referred To Contact Neurology Diagnoses Spasticity Procedures Auth Request for Medication Luis Chavez MD [facility] [place] [address] [facility] [place] [address] [place] [phone] Referral ID Status Reason Start Date Expiration Date V isits Requested Visits Authorized [id number] Consult, Test & Treat 11/25/2016 11/25/2017 4 4 Encounter Details Date Type Department Care Team (Late st Contact Info) Description 11/25/2016 Orders [place] [address] Luis Chavez MD [facility] [place] [address] Spasticity Social History Tobacco Use [...] PM EDT TH Visit (TeleHealth) [place] [address] Yue Darby MD [facility] DR HOSPICE AND [place] [address] 04/12/2024 11:30 AM EDT Office [place] [address] Yue Darby MD [facility] HOSPICE AND [place]ATIVE [place] [address] 04/28/2024 8:30 AM EDT TH Visit (TeleHealth) [place] [address] Yue Darby MD [facility] HOSPICE AND [place] [address] documented as of this encounter Visit Diagnoses Diagnosis Spasticity Abnormal involuntary movements documented in this encounter Care Teams Front Desk Representative Relationship Specialty Start Date End Date Donte Padgett MD [address] [place] [address] PCP - General Family Medicine 08/24/15 documented as of this encounter
--- OUTSIDE RECORDS SUMMARY | 2024-03-04 16:58 | XMS_ITS | Encounter Summary ---
Author Organization [facility] [place] [address] Care Team Providers Care Semiconductor Lab Technician Name Role Phone Donte Padgett MD Primary Care Provider [phone] [phone] Encounter Details Date Type Department Care Team (Late st Contact Info) Description 07/26/2018 5:00 PM EST [place] [address] Cesar Fuentes MD [facility] [place] [address] Spasticity; Groin pain, left Social History Tobacco [...] Sign Reading Time Taken Comments Blood Pressure 130/60 07/26/2018 4:45 PM EST Pulse 67 07/26/2018 4:45 PM EST Temperature - - Respiratory Rate - - Oxygen Saturation - - Inhaled Oxygen Concentration - - Weight 79.4 kg (175 lb) 07/26/2018 4:45 PM EST Height 190.5 cm (6' 3) 07/26/2018 4:45 PM EST r eported Body Mass Index 21.87 07/26/2018 4:45 PM EST documented in this encounter Patient Instructions * Patient Instructions* Cesar Fuentes MD - 07/26/2018 5:00 PM EST I think you are doing about the same overall. We still do not have good explanation for pain in your groin. I suspect it is a tight muscle, but we have not been able to access it specifically for injection, or to inject it successfully. I think there is really no option at the present time but to have you stay on the Vicodin 1 pill 3 times a day. I am happy to continue prescribing that. We can also switch to a different opiate at a similar dose. Various other medications we have tried have not been of any use. I would like you to try some Robaxin 1 pill 3 times a day taken along with Vicodin. If the Robaxin does not help, then at your next new opiate prescription we can change from Vicodin to Percocet or methadone at a roughly equivalent dose I would like to see you back in 6 months or sooner if necessary. Cesar Fuentes MD [place] [address] Pager: [phone], #[phone] Email: [email or web address] documented in this encounter Progress Notes * Cesar Fuentes MD - 07/26/2018 5:00 PM EST Neurology Clinic Note Chief complaint: [...] this did not lead to significant recovery. The patient is now paraplegic. He is able to propel a wheelchair. He has no movement in the legs atall. His legs are spastic. He has a [...] muscle movement. He has a sensory level at about C7. Below that he can feel deep [...] baclofen desipramine and Neurontin had not been helpful Additional anesthetic nerve and muscle blocks done by Dr. East were also unhelpful. I arranged with Dr. Chavez for the patient to get a Botox injection of the iliopsoas, and that too has made no difference. Symptoms were then managed on modest doses of Vicodin. Interval History: The patient is doing reasonably well. 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 Symptoms are adequately controlled on modest doses of Vicodin. He is not taking any other anti spasmodic or anti-spasticity medication. He does use medical marijuana. 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 Review of systems: 1. Eating: Normal 2. Sleeping: Disturbed by pain 3. Bowels: Requires digital rectal stimulation for bowel evacuation 4. Bladder: Requires intermittent catheterization every 4 hours 5. All other systems were reviewed and were normal except as noted in history Medications: Current Outpatient Prescriptions Medication Sig Dispense Refill ??? omeprazole 20 mg Tablet, Delayed Release (E.C.) Take 20 mg by mouth daily. ??? HYDROcodone-acetaminophen (NORCO) 5-325 mg Tablet Take 1 tablet by mouth 3 times daily. 90 tablet 0 No current facility-administered medications for this visit. Allergies: Review of patient's allergies indicates no known allergies. Physical Exam: BP 130/60 (BP Location (NBP): Right arm, Patient Position: Sitting, BP Cuff Sizes: Adult (25-34 cm)) Pulse 67 Ht 190.5 cm (6' 3) Comment: reported Wt 79.4 kg (175 lb) BMI 21.87 kg/m?? HEENT: Normal Heart: Normal S1, S2, [...] bilaterally, biceps 5/5 bilaterally, triceps 4/5 bilaterally, brachioradialis5 minus/5 bilaterally, wrist extension 4/5 bilaterally, wrist flexion 3/5 bilaterally, hand intrinsics 1-2/5, essentially 0 below that. [...] contrast Impression and suggestions: The patient is not doing particularly well. 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 He has relatively well preserved proximal arm movement but much less distally, and nothing in the legs. He has neurogenic bowel and bladder. The cause of his hip and groin pain is unclear. The fact that he developed several years off the original injury makes me think that it is a secondary process rather than a primary myelopathic one. The fact that it is better lying down and worsened a chair makes me wonder if there is a component ofiliopsoas and other hip girdle spasm. He was seen for another opinion at the [facility] but nothing came of this. He has had unsuccessful trials of baclofen, desipramine, Neurontin, tizanidine and Tegretol. Neuromuscular blocks and more recently Botox injections have also been unhelpful. I see no option at present but to keep him on a modest dose of Vicodin, which I will continue to write for. Other options might be to switch opiates from Vicodin to Percocet or methadone. I am putting him on Robaxin 500 mg 3 times daily to be taken along with the Vicodin. He will call in a few weeks, and at the time of his next scheduled opiate refill we will consider switching if he is no better Thank you for this consultation. I will see the patient back in 6 months or sooner if necessary. Cesar Fuentes [place] [address] Pager: [phone], #[phone] Email: [email or web address] CC: Dr. Padgett documented in this encounter Plan of Treatment Upcoming Encounters Date Type Department Care Team (Late st Contact Info) Description 03/17/2024 2:00 PM EDT TH Visit (TeleHealth) [place] [address] Yue Darby MD [facility] HOSPICE AND PALLIATIVE [place] [address] 04/12/2024 11:30 AM EDT [place] [address] Yue Darby MD [facility] HOSPICE AND PALLIATIVE [place] [address] 04/28/2024 8:30 AM EDT TH Visit (TeleHealth) [place] [address] Yue Darby MD [facility] DR HOSPICE AND PALLIATIVE [place] [address] documented as of this encounter Visit Diagnoses Diagnosis Spasticity Abnormal involuntary movements Groin pain, left documented in this encounter Care Teams Semiconductor Lab Technician Relationship Specialty Start Date End Date Donte Padgett MD [address] [place] [address] PCP - General Family Medicine 08/24/15 documented as of this encounter
--- OUTSIDE RECORDS SUMMARY | 2024-03-04 16:58 | XMS_ITS | Encounter Summary ---
Author Organization [facility] Address [facility] [place] [address] Care Team Providers Care Continuity Director Name Role Phone Donte Padgett MD Primary Care Provider [phone] [phone] Encounter Details Date Type Department Care Team (Late st Contact Info) Description 10/13/2017 [place] [address] Cesar Fuentes MD [facility] [place] [address] Social History Tobacco Use Types Packs/Day Years [...] PM EDT TH Visit (TeleHealth) [place] [address] Yue Darby MD [facility] HOSPICE [place] [address] 04/12/2024 11:30 AM EDT [place] [address] Yue Darby MD [facility] DR HOSPICE [place] [address] 04/28/2024 8:30 AM EDT TH Visit (TeleHealth) [place] [address] Yue Darby MD [facility] HOSPICE [place] [address] documented as of this encounter Visit Diagnoses Not on filedocumented in this encounter Care Teams Continuity Director Relationship Specialty Start Date End Date Donte Padgett MD [address] [place] [address] [address] [facility] [place] [address] PCP - General Family Medicine 08/24/15 documented as of this encounter
--- OUTSIDE RECORDS SUMMARY | 2024-03-04 16:58 | XMS_ITS | Encounter Summary ---
Author Organization [facility] Address [facility] [place] [address] Care Team Providers Care Mill Supervisor Name Role Phone Donte Padgett MD Primary Care Provider [phone] [phone] Reason for Visit * Diagnostic Test (Routine) - Closed Specialty Diagnoses / Procedures Referred By Contac t Referred To Contact Radiology Diagnoses Chronic left hip pain Procedures CT Generic Procedure CT Guided Injection Tendon CT Guided Biopsy Muscle Soft Tissue Mika East MD [facility] [place] [address] Referral ID Status Reason Start Date Expiration Date V isits Requested Visits Authorized [id number] Closed Specialty Service Requested 08/08/2016 08/08/2017 1 1 Encounter Details Date Type Department Care Team (Latest Contact Info) Description 09/17/2016 2:03 PM EDT - 09/17/2016 11:59 PM EDT Hospital [place] [address] Mika East MD [facility] [place] [address] Chronic left hip pain Discharge Disposition: Home Social History Tobacco [...] as needed. Prn heartburn, takes 2-3 x/week carBAMazepine (TEGRETOL XR) 200 mg Tablet Sustained Release 12 hr Take 2 tablets by mouth 2 times daily. 120 tablet 11 07/22/2016 10/09/2016 documented as of this encounter Progress Notes * Mika East MD - 09/17/2016 5:37 PM EDT Patient Name: Aly De La Torre Patient Age: 26 y.o. Birthdate: 1990 Admit date: 09/17/2016 Attending Physician: Mika aEst MD CT Guided left psoas muscle Injection Date of Service: 09/17/2016 Patient: Aly De La Torre Provider: Mika East MD Pre-Procedural Evaluation: Aly De La Torre has been [facility] for an CT Guided left psoas muscle injection for a chief complaint of left Lower quadrant pain. Pre-procedure Pain Score: 7/10 Mr. De La Torre was interviewed and the medical record reviewed. There were no medical, pharmacologic, radiographic or other structural contraindications to performing an CT guided injection. Risks and expected side effects as well as potential benefit of the procedure were reviewed with Aly De La Torre. The printed consent form was signed and witnessed. Standard time-out procedure was performed and documented. Procedure Description: The patient was placed in the prone position and automated blood pressure cuff and pulse oximeter applied for monitoring during the procedure and recorded in the medical record. Pre-injection CT scanning of the area of interest was performed identifying relevant anatomy, landmarks, and neurovascular structures allowing for optimal needle path. The site was then prepared in the usual sterile fashion, using thorough Chlorhexadine preparation of the skin and sterile draping. he injection target was again visualized and needle depth and trajectory calculated Skin and subcutaneous tissues were anesthetized with 2 mL of 1% Lidocaine. A 22 guage needle x 6 inch needle was placed under CT guidance to the target area. After visualization of the needle tip at the target area, 8 mL 0.5% Bupivacaine was delivered after negative aspiration for blood. CT images were captured and stored for documentation purposes. Post-procedure Pain Score: 5/10 Mr. De La Torre's vital signs were stable throughout the procedure and were as recorded in the docflowsheet by the nursing staff. Follow up plans and appointments were discussed with the patient Post procedure instruction was given as documented in nursing documentation and having met discharge criteria, they were discharged from the [facility]. COMMENTS: He will f/u by phone tomorrow to report effect and then we will come up with a plan. CC: MD Kita Mitchell documented in this encounter Plan of Treatment Upcoming Encounters Date Type Department Care Team (Late st Contact Info) Description 03/17/2024 2:00 PM EDT TH Visit (TeleHealth) [place] [address] Yue Darby MD [facility] DR HOSPICE [place] [address] 04/12/2024 11:30 AM EDT [place] [address] Yue Darby MD [facility] DR HOSPICE [place] [address] 04/28/2024 8:30 AM EDT TH Visit (TeleHealth) [place] [address] Yue Darby MD [facility] DR HOSPICE [place] [address] documented as of this encounter Procedures Procedure Name Priority Date/Time Associated Diagnosis Comments CT GENERIC PROCEDURE Routine 09/17/2016 4:03 PM EDT Chronic left hip pain documented in this encounter Results * CT Generic Procedure (09/17/2016 4:03 PM EDT) Anatomical Region Laterality Modality Computed Tomogra phy Impressions 10/01/2016 10:40 AM EDT Successful uncomplicated diagnostic injection of the left psoas muscle with bupivacaine. Patient to follow-up in the pain clinic. Narrative 10/01/2016 10:40 AM EDT EXAMINATION: CT GUIDED INJECTION TENDON CLINICAL HISTORY: [...] psoas muscles. Preprocedure and postprocedure pain was evaluated by the attending pain physician, Dr. Robinson East Mika East MD IMG CT ORDERABLES documented in this encounter Visit Diagnoses Diagnosis Chronic left hip pain Pain in joint, pelvic region and thigh documented in this encounter Care Teams Mill Supervisor Relationship Specialty Start Date End Date Donte Padgett MD [address] [place] [address] PCP - General Family Medicine 08/24/15 documented as of this encounter
--- OUTSIDE RECORDS SUMMARY | 2024-03-04 16:58 | XMS_ITS | Encounter Summary ---
Author Organization [facility] Address [facility] [place] [address] Care Team Providers Care Auto Specialty Services Manager Name Role Phone Donte Padgett MD Primary Care Provider [phone] [phone] Reason for Visit * Reason Onset Date Comments Other 12/29/2016 Encounter Details Date Type Department Care Team (Late st Contact Info) Description 12/29/2016 [place] [address] Deborah Fuentes MD [facility] [place] [address] Other Social History Tobacco Use Types Packs/Day [...] encounter Miscellaneous Notes * Telephone Encounter - Armando Corona, RN - 12/29/2016 12:07 PM EDT Telephone this man and tell him that he has missed so many appointments that if he misses one more appointment for Botox with Dr. Chavez I am washing my hands of this whole matter. I don't really care when he sees me next. He can scheduled at his convenience. Thanks, deborah ? Previous Messages Called and relayed message to Aly he voiced understanding and agreement. Armando * Telephone Encounter - Cecy Sanders - 12/29/2016 9:55 AM EDT Caller: Patient If not Pt / Relation to pt: Best time to reach caller: anytime Before 2:30pm - Informed caller that nurse will call back by the end of the day Best number to reach caller: [phone] Reason for call: Patient called in regarding appointments for 12/31. States he can make it for the Botox appointment with Dr. Chavez in the morning but is not able to make it for the 4pm with Dr. Fuentes. He was wondering if they had to be the same day or if it was okay for him to reschedule the follow up with Dr. Fuentes for a later date. documented in this encounter Plan of Treatment Upcoming Encounters Date Type Department Care Team (Late st Contact Info) Description 03/17/2024 2:00 PM EDT TH Visit (TeleHealth) [place] [address] Yue Darby MD [facility] DR HOSPICE [place] [address] 04/12/2024 11:30 AM EDT [place] [address] Yue Darby MD [facility] DR HOSPICE [place] [address] 04/28/2024 8:30 AM EDT TH Visit (TeleHealth) [place] [address] Yue Darby MD [facility] HOSPICE [place] [address] documented as of this encounter Visit Diagnoses Not on filedocumented in this encounter Care Teams Auto Specialty Services Manager Relationship Specialty Start Date End Date Donte Padgett MD [address] [place] [address] PCP - General Family Medicine 08/24/15 documented as of this encounter
--- OUTSIDE RECORDS SUMMARY | 2024-03-04 16:58 | XMS_ITS | Encounter Summary ---
Author Organization [facility] Address [facility] [place] [address] Care Team Providers Care Business Management Associate Name Role Phone Donte Padgett MD Primary Care Provider [phone] [phone] Encounter Details Date Type Department Care Team (Late st Contact Info) Description 08/05/2016 Ancillary Procedure [place] [address] Donte Padgett MD [address] [place], [place] [address] Social History Tobacco Use Types Packs/Day Years [...] PM EDT TH Visit (TeleHealth) [place] [address] Yue Darby MD [facility] HOSPICE AND [place] [address] 04/12/2024 11:30 AM EDT [place] [address] Yue Darby MD [facility] HOSPICE AND [place] [address] 04/28/2024 8:30 AM EDT TH Visit (TeleHealth) Neurology at [facility] [place] [address] Yue Darby MD [facility] HOSPICE AND [place] [address] documented as of this encounter Procedures Procedure Name Priority Date/Time Associated Diagnosis Comments FILM LIBRARY STORAGE ONLY ULTRASOUND STUDY Routine 08/05/2016 12:00 AM EST documented in this encounter Results * Film Library- Storage Only Ultrasound Study (08/05/2016 12:00 AM EST) Narrative [facility] - 03/06/2023 1:35 PM EDT This exam is auto-finalizing. It's purpose is for storage only. Donte Padgett MD IMG FILM LIBRARY ORDERABLES [place], [place] documented in this encounter Visit Diagnoses Not on filedocumented in this encounter Care Teams Business Management Associate Relationship Specialty Start Date End Date Donte Padgett MD [address] [place] [address] PCP - General Family Medicine 08/24/15 documented as of this encounter
--- OUTSIDE RECORDS SUMMARY | 2024-03-04 16:58 | XMS_ITS | Encounter Summary ---
Author Organization [facility] Address [facility] [place] [address] Care Team Providers Care Terrazzo Worker Helper Name Role Phone Donte Padgett MD Primary Care Provider +1 -[phone] Reason for Visit * Reason Onset Date Comments Medication Refill 07/09/2018 Encounter Details Date Type Department Care Team (Late Contact Info) Description 07/09/2018 [place] [address] Cesar Fuentes MD [facility] [place] [address] Social History Tobacco Use Types Packs/Day Years [...] PM EDT TH Visit (TeleHealth) [place] [address] Yue Darby MD [facility] HOSPICE AND PALLIATIVE MEDICINE [place], [place] [address] 04/12/2024 11:30 AM EDT [place] [address] Yue Darby MD [facility] DR HOSPICE AND [place] [address] 04/28/2024 8:30 AM EDT TH Visit (TeleHealth) [place] [address] Yue Darby MD [facility] HOSPICE AND [place] [address] documented as of this encounter Visit Diagnoses Not on filedocumented in this encounter Care Teams Terrazzo Worker Helper Relationship Specialty Start Date End Date Donte Padgett MD [address] [place] [address] PCP - General Family Medicine 08/24/15 documented as of this encounter
--- OUTSIDE RECORDS SUMMARY | 2024-03-04 16:58 | XMS_ITS | Encounter Summary ---
Author Organization [facility] [place] [address] Care Team Providers Care Video Operator Name Role Phone Donte Padgett MD Primary Care Provider [phone] [phone] Reason for Visit * Reason Onset Date Comments Medication Refill 04/09/2017 Encounter Details Date Type Department Care Team (Late Contact Info) Description 04/09/2017 [place] [address] Cesar Fuentes MD [facility] [place] [address] Social History Tobacco Use Types Packs/Day Years [...] PM EDT TH Visit (TeleHealth) [place] [address] Yue Darby MD [facility] HOSPICE AND PALLIATIVE MEDICINE [place], [place] [address] 04/12/2024 11:30 AM EDT [place] [address] Yue Darby MD [facility] DR HOSPICE AND PALLIATIVE [place] [address] 04/28/2024 8:30 AM EDT TH Visit (TeleHealth) [place] [address] Yue Darby MD [facility] HOSPICE AND PALLIATIVE [place] [address] documented as of this encounter Visit Diagnoses Not on filedocumented in this encounter Care Teams Video Operator Relationship Specialty Start Date End Date Donte Padgett MD [address] [place] [address] PCP - General Family Medicine 08/24/15 documented as of this encounter
--- OUTSIDE RECORDS SUMMARY | 2024-03-04 16:58 | XMS_ITS | Encounter Summary ---
Author Organization [facility] Address [facility] [place] [address] Care Team Providers Care Public Safety Police Name Role Phone Donte Padgett MD Primary Care Provider [phone] [phone] Reason for Visit * Reason Onset Date Comments Medication Refill 01/11/2018 Encounter Details Date Type Department Care Team (Late st Contact Info) Description 01/11/2018 Ref[place] [address] Cesar Fuentes MD [facility] [place] [address] Social History Tobacco Use Types Packs/Day Years [...] encounter Miscellaneous Notes * Telephone Encounter - ChauNereyda aranda - 01/11/2018 11:38 AM EDT Caller: Patient If not Pt / Relation to pt: Best time to reach caller if there are questions with medication refill request: anytime Best number to reach caller if needed: [phone] Name of Med: Hydrocodone Strength of Pills: 5-3.25mg tablets Dosing Directions: 1 tablet 3x daily 30 or 90 Day: 30 Pharmacy: [facility] in [place], [place] Last Appointment: 09/16/17 Next Appointment: 03/16/18 Is Patient out of Medication?: Yes documented in this encounter Plan of Treatment Upcoming Encounters Date Type Department Care Team (Late st Contact Info) Description 03/17/2024 2:00 PM EDT TH Visit (TeleHealth) [place] [address] Yue Darby MD [facility] DR HOSPICE [place] [address] 04/12/2024 11:30 AM EDT Office [place] [address] Yue Darby MD [facility] HOSPICE [place] [address] 04/28/2024 8:30 AM EDT TH Visit (TeleHealth) [place] [address] Yue Darby MD [facility] DR HOSPICE [place] [address] documented as of this encounter Visit Diagnoses Not on filedocumented in this encounter Care Teams Public Safety Police Relationship Specialty Start Date End Date Donte Padgett MD [address] [place] [address] [address] [facility] [address] [place] [address] PCP - General Family Medicine 08/24/15 documented as of this encounter
--- OUTSIDE RECORDS SUMMARY | 2024-03-04 16:58 | XMS_ITS | Encounter Summary ---
Author Organization [facility] Address [facility] [place] [address] Care Team Providers Care Drencher Name Role Phone Donte Padgett MD Primary Care Provider [phone] [phone] Reason for Visit * High Dollar Medication (Routine) - Specialty Diagnoses / Procedures Referred By Contac t Referred To Contact Neurology Diagnoses Spasticity Procedures Auth Request for Medication Luis Chavez MD [facility] [place] [address] [facility] [address] [place] [address] Referral ID Status Reason Start Date Expiration Date V isits Requested Visits Authorized [id number] Consult, Test & Treat 11/25/2016 11/25/2017 4 4 Encounter Details Date Type Department Care Team (Late st Contact Info) Description 12/31/2016 10:30 AM EDT [place] [phone] Luis Chavez MD [facility] [place] [address] Groin pain, left; Muscle spasticity Social History Tobacco Use Types Packs/Day Years [...] Sign Reading Time Taken Comments Blood Pressure 119/53 12/31/2016 10:22 AM EDT Pulse 88 12/31/2016 10:22 AM EDT Temperature - - Respiratory Rate - - Oxygen Saturation - - Inhaled Oxygen Concentration - - Weight 74.8 kg (165 lb) 12/31/2016 10:22 AM EDT Height 190.5 cm (6' 3) 12/31/2016 10:22 AM EDT reported Body Mass Index 20.62 12/31/2016 10:22 AM EDT documented in this encounter Progress Notes * Luis Chavez MD - 12/31/2016 10:30 AM EDT Patient referred by Dr. Fuentes for botox injection for left groin pain and spasticity. Consent wasobtained and a time-out was conducted just prior to the start of the procedure to verify the correct: patient, procedure, procedure location, and all relevant critical information. Each injection site was sterilized with 70% isopropyl alcohol. OnabotulinumtoxinA was reconstituted with 0.9% NaCl to create a dilution of 5 units per 0.1mL. Injections were administered with a 30 gauge, 1.5 needle. Injections administered as follows and performed to left upper leg 40 units divided between 4 sites in the left iliopsoas, 20 units divided between 2 sites in the pectineus, 10 units into 2 sites left rectus femoris proximally, 10 units divided between 2 sites in the left gracilis, 20 units in 2 sites to left sartorius. Total 100 units The patient tolerated the procedure without any immediate complications. Lot number [id number] Patient has f/u with Dr. Fuentes. documented in this encounter Plan of Treatment Upcoming Encounters Date Type Department Care Team (Late st Contact Info) Description 03/17/2024 2:00 PM EDT TH Visit (TeleHealth) [place] [address] Yue Darby MD [facility] [place] [address] 04/12/2024 11:30 AM EDT [place] [address] Yue Darby MD [facility] [place] [address] 04/28/2024 8:30 AM EDT TH Visit (TeleHealth) [place] [address] Yue Darby MD [facility] [place] [address] documented as of this encounter Visit Diagnoses Diagnosis Groin pain, left Muscle spasticity Spasm of muscle documented in this encounter Administered Medications Inactive Administered Medications - up to 3 most recent administrations Medication Order MAR Action Action Date Dose Rate Site botulinum toxin type A (BOTOX) injection 100 Units 100 Units, Intramuscular, ONCE, 1 dose, On Thu12/31/16 at 1300, Routine Given 12/31/2016 12:44 PM EDT 100 Units 20-Other (document in comment section) documented in this encounter Care Teams Drencher Relationship Specialty Start Date End Date Donte Padgett MD [address] [place] [address] PCP - General Family Medicine 08/24/15 documented as of this encounter
--- OUTSIDE RECORDS SUMMARY | 2024-03-04 16:58 | XMS_ITS | Encounter Summary ---
Author Organization [facility] Address [facility] [place] [address] Care Team Providers Care Industrial Technology Teacher Name Role Phone Donte Padgett MD Primary Care Provider [phone] [phone] Reason for Visit * Reason Onset Date Comments Medication Refill 05/12/2018 Encounter Details Date Type Department Care Team (Late Contact Info) Description 05/12/2018 [place] [address] Cesar Fuentes MD [facility] [place] [address] Social History Tobacco Use Types Packs/Day Years [...] TH Visit (TeleHealth) [place] [address] Yue Darby MD [facility] HOSPICE [facility] PALLIATIVE MEDICINE [place], [place] [id number] 04/12/2024 11:30 AM EDT [place] [address] Yue Darby MD [facility] H[facility] [place] [address] 04/28/2024 8:30 AM EDT TH Visit (TeleHealth) [place] [address] Yue Darby MD [facility] [place] [address] documented as of this encounter Visit Diagnoses Not on filedocumented in this encounter Care Teams Industrial Technology Teacher Relationship Specialty Start Date End Date Donte Padgett MD [address] [place] [address] PCP - General Family Medicine 08/24/15 documented as of this encounter
--- OUTSIDE RECORDS SUMMARY | 2024-03-04 16:58 | XMS_ITS | Encounter Summary ---
Author Organization [facility] Address [facility] [place] [address] Care Team Providers Care Hadoop Software Engineer Name Role Phone Donte Padgett MD Primary Care Provider [phone] [phone] Encounter Details Date Type Department Care Team (Late st Contact Info) Description 07/22/2016 3:00 PM EST [place] [address] Cesar Fuentes MD [facility] [place] [address] Paraplegia; Chronic left hip pain Social History Tobacco Use Types Packs/Day [...] Sign Reading Time Taken Comments Blood Pressure 122/72 07/22/2016 2:41 PM EST Pulse 86 07/22/2016 2:41 PM EST Temperature - - Respiratory Rate - - Oxygen Saturation - - Inhaled Oxygen Concentration - - Weight 79.8 kg (176 lb) 07/22/2016 2:41 PM EST Height 190.5 cm (6' 3) 07/22/2016 2:41 PM EST Body Mass Index 22 07/22/2016 2:41 PM EST documented in this encounter Patient Instructions * Patient Instructions* Cesar Fuentes MD - 07/22/2016 3:00 PM EST I think you're doing about the same overall. The pictures of your spine and pelvis did not show any obvious explanation for the pain. I still think this may be a problem with muscle spasm. I'm sorry you missed your injection appointment with Dr. East. I will speak to him again about what one might inject both as a diagnostic test and as a treatment. I'm sorry also the tizanidine did not help you. It is reasonable not to take it anymore. Instead I would like to try some Tegretol. I have sent in a prescription. Please start with 1 pill daily for a week, then increase it to 1 pill twice a day for a week, and then go up to 2 pills twicea day. If there are problems or side effects please let me know. You have a somewhat low blood count, and the pattern of abnormalities suggestive of iron deficiency. I believe you've previously had a low level Finn. Please discuss with your primary doctor about getting an iron supplement. I would like to see you back in 6 weeks or sooner if any problems arise. Cesar Fuentes MD Department of Neurology [address] [place] [address], [place] [address] Pager: [phone], #[phone] Email: [email or web address] documented in this encounter Progress Notes * Cesar Fuentes MD - 07/22/2016 3:00 PM EST Neurology Clinic Note Chief complaint: Chronic pain History: The patient is 26 years old and right handed, and was referred for neurological consultation by and Dr. Padgett to address the issue of groin pain. The patient had a normal and early development. He did well in school. There is no history ofmajor childhood illnesses or major traumas in childhood. [...] years after the original injury the patient developedan unusual pain in the left hip and groin. This is a deep sharp and burning pain. It is there most of the time. It is not clearly positional but is exacerbated by movements of the hip joint on the left. It has not been relieved by stretching exercises. It is not relieved by bowel movements and is worse with eating. The patient has been extensively evaluated. MRI scan of the abdomen and pelvis was unremarkable. Hehas had colonoscopy and upper endoscopy that were unremarkable. Heather video enterography was unremarkable. He has had ultrasound of abdomen and pelvis that was unremarkable. The patient has been treated in the past of baclofen desipramine and Neurontin which did not help him. He may have been in other medications he does not recall. He has been treated with local nerve block injections that have also been unhelpful. He gets some relief from medical marijuana. In the past he has been on oxycodone that gave only modest improvement. Interval History: Unfortunately, we have not made much progress. When I saw him originally I thought that he had an atypical pelvic pain following paraplegia, possibly related to muscle spasm. MRI scan of lumbar spine and pelvis including views of the right and left left hips is unremarkable. He did not benefit from a trial of tizanidine up to 2 mg 4 times a day. I wanted him to see Dr. East again specifically for injection and anesthetic block of iliopsoas muscle, but he missed his appointment. This has been rescheduled for the end of this month. Past medical history: Patient Active Problem List [...] of lung cancer. Otherwise unremarkable Social history: Review of systems: 1. Eating: Normal 2. Sleeping: Disturbed by pain 3. Bowels: Requires digital rectal stimulation for bowel evacuation 4. Bladder: Requires intermittent catheterization every 4 hours 5. All other systems were reviewed and were normal except as noted in history Medications: Current Outpatient Prescriptions Medication Sig Dispense Refill ??? omeprazole 20 mg Tablet, Delayed Release (E.C.) Take by mouth daily. ??? tiZANidine (ZANAFLEX) 2 mg Tablet Take 1 tablet by mouth 4 times daily. 120 tablet 0 No current facility-administered medications for this visit. Allergies: Review of patient's allergies indicates no known allergies. Physical Exam: VS: BP 108/63 Pulse 73 Ht (!) 190.5 cm (6' 3) Wt 78.5 kg (173 lb) Comment: pt reports... unable tostand BMI 21.62 kg/m2 HEENT: Normal Heart: Normal S1, S2, no abnormal sounds Lungs: Clear Abdomen: Benign, but has left groin pain extending to the left hip Extremities: Normal, distal atrophy and lower extremities, [...] extension 4/5 bilaterally, wrist flexion 3/5 bilaterally, essentially 0 below that. Fine motor: None in hands Tone: Normal arms, spastic legs with clonus Abnormal movements: Lower extremity clonus with stimulus bilaterally Deep tendon reflexes: 2+ biceps, 2+ brachioradialis, 0-1+ triceps unable to elicit knees, 2+ ankles. Babinski sign: Not checked Other reflexes: Not tested Sensation: Sensory level at about C6. Sensation preserved in am and second digits bilaterally below that marked loss of sensation in all modalities. Pain in left hip and groin exacerbated by movement of the hipjoint in any direction. 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 He has relatively well preserved proximal arm movement but nothing distally, and nothing in the legs. He has neurogenic bowel and bladder. The cause of his hip and groin pain is unclear. The fact that he developed several years off the original injury makes me think that it is a secondary process rather than a primary myelopathic one. Iwonder if there is a component of iliopsoas spasm. I spoke with Dr. East regarding his specifically doing anesthetic block of left iliopsoas, and this is being arranged for. If this is helpful, then Botox injection might be helpful as a longer-term treatment. He did not benefit from a trial of tizanidine. I'm instead trying Tegretol starting with 200 mg daily and escalating to 400 mg twice a day over a month. His blood tests show showed that he is rather anemic, with low MCV suggestive of iron deficiency. He says that his PCP previously noted low iron levels. I note that his upper and lower endoscopy wereunremarkable. I will defer in this regard to his PCP, but a trial of iron therapy may be indicated. Thank you for this consultation. I will see the patient back in 6 weeks or sooner if necessary Cesar Fuentes MD [place] [address] Pager: [phone], #[phone] Email: [email or web address] CC: Dr. Dayron East documented in this encounter Plan of Treatment Upcoming Encounters Date Type Department Care Team (Late st Contact Info) Description 03/17/2024 2:00 PM EDT TH Visit (TeleHealth) [place] [address] Yue Darby MD [facility] HOSPICE AND [place] [address] 04/12/2024 11:30 AM EDT [place] [address] Yue Darby MD [facility] HOSPICE [facility] [place] [address] 04/28/2024 8:30 AM EDT TH Visit (TeleHealth) Neurology at [place] [phone] Yue Darby MD [facility] HOSPICE [place] [address] documented as of this encounter Visit Diagnoses Diagnosis Paraplegia Chronic left hip pain Pain in joint, pelvic region and thigh documented in this encounter Care Teams Hadoop Software Engineer Relationship Specialty Start Date End Date Donte Padgett MD [address] [place] [address] PCP - General Family Medicine 08/24/15 documented as of this encounter
--- OUTSIDE RECORDS SUMMARY | 2024-03-04 16:58 | XMS_ITS | Encounter Summary ---
Author Organization [facility] Address [facility] [place] [address] Care Team Providers Care Drainman Name Role Phone Donte Padgett MD Primary Care Provider [phone] [phone] Reason for Visit * Reason Onset Date Comments Medication Refill 05/11/2017 Encounter Details Date Type Department Care Team (Late Contact Info) Description 05/11/2017 [place] [address] Cesar Fuentes MD [facility] [place] [address] Social History Tobacco Use Types Packs/Day Years [...] PM EDT TH Visit (TeleHealth) [place] [address] Yue Darby MD [facility] [place], [place] [id number] 04/12/2024 11:30 AM EDT [place] [address] Yue Darby MD [facility] [place] [address] 04/28/2024 8:30 AM EDT TH Visit (TeleHealth) [place] [address] Yue Darby MD [facility] [place] [address] documented as of this encounter Visit Diagnoses Not on filedocumented in this encounter Care Teams Drainman Relationship Specialty Start Date End Date Donte Padgett MD [address] [place] [address] PCP - General Family Medicine 08/24/15 documented as of this encounter
--- OUTSIDE RECORDS SUMMARY | 2024-03-04 16:58 | XMS_ITS | Encounter Summary ---
Author Organization [facility] Address [facility] [place] [address] Care Team Providers Care Control Equipment Electrician Name Role Phone Donte Padgett MD Primary Care Provider [phone] [phone] Reason for Visit * Reason Onset Date Comments Medication Refill 06/12/2017 Encounter Details Date Type Department Care Team (Late st Contact Info) Description 06/12/2017 [place] [address] Lindsay Bundy CMA Social History Tobacco Use Types Packs/Day Years [...] encounter Miscellaneous Notes * Telephone Encounter - Lindsay Bundy CMA - 06/12/2017 9:32 AM EST New RX for HYDROcodone-acetaminophen (NORCO) 5-325 mg Tablet mailed to the patient's home address on file per request. documented in this encounter Plan of Treatment Upcoming Encounters Date Type Department Care Team (Late st Contact Info) Description 03/17/2024 2:00 PM EDT TH Visit (TeleHealth) [place] [address] Yue Darby MD [facility] HOSPICE AND [place] [address] 04/12/2024 11:30 AM EDT Office [place] [address] Yue Darby MD [facility] HOSPICE AND [place] [address] 04/28/2024 8:30 AM EDT TH Visit (TeleHealth) [place] [address] Yue Darby MD [facility] HOSPICE AND [place] [address] documented as of this encounter Visit Diagnoses Not on filedocumented in this encounter Care Teams Control Equipment Electrician Relationship Specialty Start Date End Date Donte Padgett MD [address] [place] [address] PCP - General Family Medicine 08/24/15 documented as of this encounter
--- OUTSIDE RECORDS SUMMARY | 2024-03-04 16:58 | XMS_ITS | Encounter Summary ---
Author Organization [facility] Address [facility] [place] [address] Care Team Providers Care Safety Companion Name Role Phone Donte Padgett MD Primary Care Provider [phone] [phone] Encounter Details Date Type Department Care Team (Late st Contact Info) Description 08/06/2018 Orders [place] [address] Cesar Fuentes MD [facility] [place] [address] penitentiary current use of opiate analgesic Social History [...] PM EDT TH Visit (TeleHealth) [place] [address] Yue Darby MD [facility] HOSPICE [facility] [place] [address] 04/12/2024 11:30 AM EDT [place] [address] Yue Darby MD [facility] HOSPICE [place] [address] 04/28/2024 8:30 AM EDT TH Visit (TeleHealth) [place] [address] Yue Darby MD [facility] HOSPICE [facility] [place] [address] documented as of this encounter Visit Diagnoses Diagnosis watermaster current use of opiate analgesic Encounter for long-term (current) use of other medications documented in this encounter Care Teams Safety Companion Relationship Specialty Start Date End Date Donte Padgett MD [address] [place] [address] PCP - General Family Medicine 08/24/15 documented as of this encounter
--- OUTSIDE RECORDS SUMMARY | 2024-03-04 16:58 | XMS_ITS | Encounter Summary ---
Author Organization [facility] Address [facility] [place] [address] Care Team Providers Care Industrial Recruiter Name Role Phone Donte Padgett MD Primary Care Provider [phone] [phone] Reason for Visit * Reason Onset Date Comments Medication Refill 12/09/2017 Encounter Details Date Type Department Care Team (Late Contact Info) Description 12/09/2017 [place] [address] Cesar Fuentes MD [facility] [place] [address] Social History Tobacco Use Types Packs/Day Years [...] PM EDT TH Visit (TeleHealth) [place] [address] Yue Darby MD [facility] HOSPICE AND PALLIATIVE MEDICINE [place], [place] [address] 04/12/2024 11:30 AM EDT [place] [address] Yue Darby MD [facility] HOSPICE [place] [address] 04/28/2024 8:30 AM EDT TH Visit (TeleHealth) [place] [address] Yue Darby MD [facility] HOSPICE [place] [address] documented as of this encounter Visit Diagnoses Not on filedocumented in this encounter Care Teams Industrial Recruiter Relationship Specialty Start Date End Date Donte Padgett MD [address] [place] [address] PCP - General Family Medicine 08/24/15 documented as of this encounter
--- OUTSIDE RECORDS SUMMARY | 2024-03-04 16:58 | XMS_ITS | Encounter Summary ---
Author Organization [facility] Address [facility] [place] [address] Care Team Providers Care Supervisor Claims Name Role Phone Donte Padgett MD Primary Care Provider [phone] [phone] Reason for Visit * Reason Onset Date Comments Medication Refill 08/14/2017 Encounter Details Date Type Department Care Team (Late st Contact Info) Description 08/14/2017 [place] [address] Cesar Fuentes MD [facility] [place] [address] Social History Tobacco Use Types Packs/Day Years [...] PM EDT TH Visit (TeleHealth) [place] [address] Yue Darby MD [facility] HOSPICE AND PALLIATIVE MEDICINE [place], [place] [address] 04/12/2024 11:30 AM EDT [place] [address] Yue Darby MD [facility] HOSPICE [place] [address] 04/28/2024 8:30 AM EDT TH Visit (TeleHealth) [place] [address] Yue Darby MD [facility] HOSPICE [place] [address] documented as of this encounter Visit Diagnoses Not on filedocumented in this encounter Care Teams Supervisor Claims Relationship Specialty Start Date End Date Donte Padgett MD [address] [place] [address] PCP - General Family Medicine 08/24/15 documented as of this encounter
--- OUTSIDE RECORDS SUMMARY | 2024-03-04 16:58 | XMS_ITS | Encounter Summary ---
Author Organization [facility] [place] [address] Care Team Providers Care Fashion Merchandiser Name Role Phone Donte Padgett MD Primary Care Provider [phone] [phone] Encounter Details Date Type Department Care Team (Late st Contact Info) Description 10/09/2016 3:30 PM EDT [place] [address] Cesar Fuentes MD [facility] [place] [address] Chronic left hip pain Social History Tobacco [...] Sign Reading Time Taken Comments Blood Pressure 125/52 10/09/2016 3:26 PM EDT Pulse 80 10/09/2016 3:26 PM EDT Temperature - - Respiratory Rate - - Oxygen Saturation - - Inhaled Oxygen Concentration - - Weight 79.4 kg (175 lb) 10/09/2016 3:26 PM EDT r eported Height 190.5 cm (6' 3) 10/09/2016 3:26 PM EDT r eported Body Mass Index 21.87 10/09/2016 3:26 PM EDT documented in this encounter Patient Instructions * Patient Instructions* Cesar Fuentes MD - 10/09/2016 3:30 PM EDT I think you're doing about the same. It is still not clear to me where exactly the pain in your hip is coming from I think the next step should be a trial of Botox injections. Conventional therapies including anti-inflammatory drugs, baclofen and tizanidine and other injections around the painful area have not been helpful I think that chronic opioid therapy is appropriate, in addition to the trial of Botox I'm giving you a prescription for 90 tablets of Vicodin. You should take one pill 3 times a day. For the first few days take only 1 or 2 pills in a day, and then 1 pill 3 times a day would be a finaldose. You must call monthly for refills. Allow about 4 working days to get a prescription. As you will not be starting with the full dose of 1 pill 3 times a day, you should have at the end of the month some few pills in reserve. We have reviewed side effects and you have signed a consent form for chronic opiate therapy. In summary there are various physical side effects. There is a risk of addiction. There is a risk of someone misusing your drugs. I must be the only prescriber of chronic opiate therapy. This does not exclude prescription for acute therapy by other providers. I will not refill prescriptions early. I will not replace lost prescriptions or lost drugs. I will not escalate the dose of opiate therapy after we have made initial adjustments I would like to see you back in a few months or sooner if necessary Cesar Fuentes MD Department [place] [address] Pager: [phone], #[phone] Email: [email or web address] [place] in this encounter Progress Notes * Cesar Fuentes MD - 10/09/2016 3:30 PM EDT Neurology Clinic Note Chief complaint: [...] did not helphim. He may have been in other medications he does not recall. He has been treated with local nerveblock injections that have also been unhelpful. He gets some relief from medical marijuana. In the past he has been on oxycodone that gave only modest improvement. Interval History: When I saw him originally I thought that he had an atypical pelvic pain following paraplegia, possibly related to muscle spasm. MRI scan of lumbar spine and pelvis including views of the right and left left hips is unremarkable. Unfortunately, we have not made much therapeutic progress. He did not benefit from a trial of tizanidine up to 2 mg 4 times a day. Tegretol was similarly unhelpful Additional anesthetic nerve and muscle blocks done by Dr. East have also been unhelpful. 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 Review of systems: [...] indicates no known allergies. Physical Exam: BP 125/52 (BP Location (NBP): Right arm, Patient Position: Sitting, BP Cuff Sizes: Adult (25-34 cm)) Pulse 80 Ht (!) 190.5 cm (6' 3) Comment: reported Wt 79.4 kg (175 lb) Comment: reported BMI 21.87 kg/m2 HEENT: Normal Heart: Normal S1, S2, [...] The patient is not doing particularly well. has unfortunately suffered a traumatic paraplegia with [...] ofiliopsoas and other hip girdle spasm. He has had unsuccessful trials of baclofen, desipramine, Neurontin, tizanidine and Tegretol. He mentions neuromuscular blocks have also been unhelpful. I am putting him on a low dose of Vicodin. I reviewed with him the risks of opiate therapy and he has signed the appropriate forms. I spoke to Dr. Chavez. We agreed that with failure of medical management, neuromuscular blockade, and well-documented spasticity on exam, EMG guided Botox injection in the iliopsoas and other hip girdle muscles might be helpful.. We will make arrangements for this in Dr. Albert's clinic. His blood tests show showed that he [...] see the patient back in a few months or sooner if necessary Cesar Fuentes MD [place] [address] Pager: [phone], [phone] Email: [email or web address] [place] CC: Dr. Dayron Chavez documented in this encounter Plan of Treatment Upcoming Encounters Date Type Department Care Team (Late st Contact Info) Description 03/17/2024 2:00 PM EDT TH Visit (TeleHealth) [place] [address] Yue Darby MD [facility] DR HOSPICE AND [place] [address] 04/12/2024 11:30 AM EDT [place] [address] Yue Darby MD [facility] DR HOSPICE [place] [address] 04/28/2024 8:30 AM EDT TH Visit (TeleHealth) [place] [address] Yue Darby MD [facility] HOSPICE [facility] [place] [address] documented as of this encounter Procedures Procedure Name Priority Date/Time Associated Diagnosis Comments DRUG SCREEN WITH CONFIRMATION, URINE (SEND OUT) Routine 10/09/2016 4:51 PM EDT Chronic left hip pain THC (MARIJUANA), URINE, CONFIRMATION Routine 10/09/2016 4:51 PM EDT documented in this encounter Results * THC (Marijuana), Urine Confirmation (10/09/2016 4:51 PM EDT) U THC Conf Test ? Result ? Flag ??Unit ?? RefValue --- Carboxy-THC Confirmation, U ??Carboxy-THC- by GC/MS ?349 ?ng/mL ??Cutoff: 3.0 ??Carboxy-THC ?Positive. ?Interpretation ? --ADDITIONAL INFORMATION-------- ?This report is intended for use in clinical monitoring and ?management of patients. ??It is not intended for use in ?employment-relate d testing. ?This test was developed and its performance characteristics ?determined by [facility] in a manner consistent with CLIA ?requirements. This test has not been cleared or approved by ?the U.S. Food and Drug Administration. ?Test Performed by: ?[facility] ?[address] LABORATORY Urine specimen (specimen) 10/09/2016 4:51 PM EDT 10/10/2016 8:38 AM EDT Narrative Resulting Agency Comment Spec In Lab Cesar Fuentes MD LAB SEND OUT ORDERAB LES [facility] [place] [address] * (ABNORMAL) Drug Screen with Confirmation, Urine (10/09/2016 4:51 PM EDT) U GUILLE w/Conf Test ? Result ? Flag ??Unit ?? RefValue ------- Pain Clinic Survey, U ??Creatinine, U ?220.3 ?mg/dL ??Specific Larose ? 1.022 ??pH ? 5.9 ??Oxidants ? Negative ?Cutoff: 200 mg/L ??Comment ?Normal ??Amphetamines ? Negative ? ng/mL ??Cutoff: 500 ??Barbiturates ? Negative ? ng/mL ??Cutoff: 200 ??Benzodiazepines ?Negative ? ng/mL ??Cutoff: 100 ??Cocaine ?Negative ? ng/mL ??Cutoff: 150 ??Phencyclidine ?Negative ? ng/mL ??Cutoff: 25 ??Tetrahydrocannab inol ? Presumptive Positive ??@ ?ng/mL ??Cutoff: 50 ?Drug confirmation to follow. ??Presumptive Positive means ?that the screening method is positive, but the test needs ?to be run by a confirmatory method before being finalized. ? ---ADDITIONAL INFORMATION------- ?This report is intended for use in clinical monitoring or ?management of patients. ??It is not intended for use in ?employment-relat ed testing. ??Codeine ?Not Detected ? ng/mL ??Cutoff: 25 ?Tylenol 3 ??Ogmfovy-4-xcnz- ?Not Detected ? ng/mL ??Cutoff: 100 ?glucuronide ?Metabolite of codeine ??Morphine ? Not Detected ? ng/mL ??Cutoff: 25 ?Inessa Higgins, MS Contin; Also a minor metabolite (10%) of ?codeine and can be seen in low concentrations (<2,000 ?ng/mL) with poppy seed ingestion. ??Icnypmui-1-zofw- ? Not Detected ? ng/mL ??Cutoff: 100 ?glucuronide ?Metabolite of morphine ??6-monoacetylmorp chhaya ? Not Detected ? ng/mL ??Cutoff: 25 ?Metabolite of heroin ??Hydrocodone ?Not Detected ? ng/mL ??Cutoff: 25 ?Lortab, [place], Vicodin; Also a very minor metabolite of ?codeine and impurity (<1%) of oxycodone. ??Norhydrocodone ? Not Detected ? ng/mL ??Cutoff: 25 ?Metabolite of hydrocodone ??Dihydrocodeine ? Not Detected ? ng/mL ??Cutoff: 25 ?Metabolite of hydrocodone ??Hydromorphone ?Not Detected ? ng/mL ??Cutoff: 25 ?Dilaudid, Exalgo; Also a metabolite of hydrocodone and a ?minor (<5%) metabolite of morphine. ??Hydromorphone-3- beta- ?Not Detected ? ng/mL ??Cutoff: 100 ?glucuronide ?Metabolite of hydromorphone ??Oxycodone ?Not Detected ? ng/mL ??Cutoff: 25 ?Endocet, Percocet, Oxycontin ??Noroxycodone ? Not Detected ? ng/mL ??Cutoff: 25 ?Metabolite of oxycodone ??Oxymorphone ?Not Detected ? ng/mL ??Cutoff: 25 ?Numorphan, Opana; Also a metabolite of oxycodone. ??Rqgcdpvdyah-5-vs ta- ?Not Detected ? ng/mL ??Cutoff: 100 ?glucuronide ?Metabolite of oxymorphone ??Noroxymorphone ? Not Detected ? ng/mL ??Cutoff: 25 ?Metabolite of oxymorphone ??Fentanyl ? Not Detected ? ng/mL ??Cutoff: 2 ?Actiq, Duragesic, Fentora ??Norfentanyl ?Not Detected ? ng/mL ??Cutoff: 2 ?Metabolite of fentanyl ??Meperidine ? Not Detected ? ng/mL ??Cutoff: 25 ?Demerol ??Normeperidine ?Not Detected ? ng/mL ??Cutoff: 25 ?Metabolite of meperidine ??Naloxone ? Not Detected ? ng/mL ??Cutoff: 25 ?Narcan ??Sipsgzbx-8-snug- ? Not Detected ? ng/mL ??Cutoff: 100 ?glucuronide ?Metabolite of naloxone ??Methadone ?Not Detected ? ng/mL ??Cutoff: 25 ?Dolophine ??EDDP ? Not Detected ? ng/mL ??Cutoff: 25 ?Metabolite of methadone ??Propoxyphene ? Not Detected ? ng/mL ??Cutoff: 25 ?Darvon, Darvocet ??Norpropoxyphene ?Not Detected ? ng/mL ??Cutoff: 25 ?Metabolite of propoxyphene ??Tramadol ? Not Detected ? ng/mL ??Cutoff: 25 ?Tradol, Ultram, Ultracet ??O-desmethyltrama dol ?Not Detected ? ng/mL ??Cutoff: 25 ?Metabolite of tramadol ??Tapentadol ? Not Detected ? ng/mL ??Cutoff: 25 ?Nucynta ??N-desmethyltapen tadol ?Not Detected ? ng/mL ??Cutoff: 50 ?Metabolite of tapentadol ??Tapentadol-beta- ? Not Detected ? ng/mL ??Cutoff: 100 ?glucuronide ?Metabolite of tapentadol ??Buprenorphine ?Not Detected ? ng/mL ??Cutoff: 5 ?Buprenex, Suboxone ??Norbuprenorphine ? Not Detected ? ng/mL ??Cutoff: 5 ?Metabolite of buprenorphine ??Norbuprenorphine ? Not Detected ? ng/mL ??Cutoff: 20 ?glucuronide ?Metabolite of buprenorphine ??Opioid Interpretation ?SEE COMMENTS ?No opioids were detected. The absence of expected drug(s) ?and/or drug metabolite(s) may indicate non-compliance, ?altered pharmacokinetics, inappropriate timing of specimen ?collection relative to drug administration, ?diluted/adultera merle urine, or limitations of testing. ? ---ADDITIONAL INFORMATION------- ?This test was developed and its performance characteristics ?determined by [facility] in a manner consistent with CLIA ?requirements. This test has not been cleared or approved by ?the U.S. Food and Drug Administration. ?Test Performed by: ?[facility] ?[address] [place] [address](A) [facility] Urine specimen (specimen) 10/09/2016 4:51 PM EDT 10/10/2016 8:38 AM EDT Narrative Resulting Agency Comment Spec In Lab Cesar Fuentes MD URINE ORDERABLES Performing Organization Address City/State/[facility] Co de Phone Number [facility] [place] [address] documented in this encounter Visit Diagnoses Diagnosis Chronic left hip pain Pain in joint, pelvic region and thigh documented in this encounter Care Teams Fashion Merchandiser Relationship Specialty Start Date End Date Donte Padgett MD [address] [place] [address] PCP - General Family Medicine 08/24/15 documented as of this encounter
--- OUTSIDE RECORDS SUMMARY | 2024-03-04 16:58 | XMS_ITS | Encounter Summary ---
Author Organization [facility] Address [facility] [place] [address] Care Team Providers Care Pad Cutter Name Role Phone Donte Padgett MD Primary Care Provider [phone] [phone] Reason for Visit * Reason Onset Date Comments Medication Refill 09/10/2017 Encounter Details Date Type Department Care Team (Late st Contact Info) Description 09/10/2017 [place] [address] Cesar Fuentes MD [facility] [place] [address] Social History Tobacco Use Types Packs/Day Years [...] PM EDT TH Visit (TeleHealth) [place] [address] Yue Darby MD [facility] HOSPICE AND PALLIATIVE MEDICINE [place], [place] [id number] 04/12/2024 11:30 AM EDT [place] [address] Yue Darby MD [facility] DR HOSPICE [place] [address] 04/28/2024 8:30 AM EDT TH Visit (TeleHealth) [place] [address] Yue Darby MD [facility] HOSPICE [place] [address] documented as of this encounter Visit Diagnoses Not on filedocumented in this encounter Care Teams Pad Cutter Relationship Specialty Start Date End Date Donte Padgett MD [address] [place] [address] PCP - General Family Medicine 08/24/15 documented as of this encounter
--- OUTSIDE RECORDS SUMMARY | 2024-03-04 16:58 | XMS_ITS | Encounter Summary ---
Author Organization [facility] Address [facility] [place] [address] Care Team Providers Care Motion Picture Equipment Machinist Name Role Phone Donte Padgett MD Primary Care Provider [phone] [phone] Encounter Details Date Type Department Care Team (Late st Contact Info) Description 05/22/2016 Orders [place] [address] Kaleb See Social History Tobacco Use Types Packs/Day Years [...] PM EDT TH Visit (TeleHealth) [place] [phone] Yue Darby MD [facility] DR HOSPICE [place] [address] 04/12/2024 11:30 AM EDT [place] [address] Yue Darby MD [facility] HOSPICE [place] [address] 04/28/2024 8:30 AM EDT TH Visit (TeleHealth) [place] [address] Yue Darby MD [facility] DR HOSPICE [place] [address] documented as of this encounter Visit Diagnoses Not on filedocumented in this encounter Care Teams Motion Picture Equipment Machinist Relationship Specialty Start Date End Date Donte Padgett MD [address] [place] [address] [address] [facility] [address] [place] [address] PCP - General Family Medicine 08/24/15 documented as of this encounter
--- OUTSIDE RECORDS SUMMARY | 2024-03-04 16:58 | XMS_ITS | Encounter Summary ---
Author Organization [facility] Address [facility] [place] [address] Care Team Providers Care Scrip Clerk Name Role Phone Donte Padgett MD Primary Care Provider [phone] [phone] Reason for Visit * Reason Onset Date Comments Medication Refill 06/11/2017 Encounter Details Date Type Department Care Team (Late st Contact Info) Description 06/11/2017 [place] [address] [facility] [place] [address] Social History Tobacco Use Types [...] PM EDT TH Visit (Tele[place]) [place] [address] [facility] HOSPICE AND [place] [address] 04/12/2024 11:30 AM EDT [place] [address] [facility] HOSPICE AND [place] [address] 04/28/2024 8:30 AM EDT TH Visit (TeleHealth) [place] [address] [facility] HOSPICE AND [place] [address] documented as of this encounter Visit Diagnoses Not on filedocumented in this encounter Care Teams Scrip Clerk Relationship Specialty Start Date End Date Donte Padgett MD [address] [place] [address] PCP - General Family Medicine 08/24/15 documented as of this encounter
--- OUTSIDE RECORDS SUMMARY | 2024-03-04 16:58 | XMS_ITS | Encounter Summary ---
Author Organization [facility] Address [facility] [place] [address] Care Team Providers Care Pocket Closer Name Role Phone Donte Padgett MD Primary Care Provider [phone] [phone] Reason for Visit * Reason Onset Date Comments Medication Refill 08/11/2018 Encounter Details Date Type Department Care Team (Late st Contact Info) Description 08/11/2018 [place] [address] Cesar Fuentes MD [facility] [place] [address] Social History Tobacco Use Types Packs/Day Years [...] PM EDT TH Visit (TeleHealth) [place] [address] Yue Darby MD [facility] HOSPICE AND PALLIATIVE MEDICINE [place], [place] [address] 04/12/2024 11:30 AM EDT [place] [address] Yue Darby MD [facility] DR HOSPICE [place] [address] 04/28/2024 8:30 AM EDT TH Visit (TeleHealth) [place] [address] Yue Darby MD [facility] HOSPICE [place] [address] documented as of this encounter Visit Diagnoses Not on filedocumented in this encounter Care Teams Pocket Closer Relationship Specialty Start Date End Date Donte Padgett MD [address] [place] [address] PCP - General Family Medicine 08/24/15 documented as of this encounter
--- OUTSIDE RECORDS SUMMARY | 2024-03-04 16:58 | XMS_ITS | Encounter Summary ---
Author Organization [facility] Address [facility] [place] [address] Care Team Providers Care Film Color Tester Name Role Phone Donte Padgett MD Primary Care Provider [phone] [phone] Reason for Visit * Reason Onset Date Comments Medication Refill 12/04/2016 Encounter Details Date Type Department Care Team (Late Contact Info) Description 12/04/2016 [place] [address] Cesar Fuentes MD [facility] [place] [address] Social History Tobacco Use Types Packs/Day Years [...] PM EDT TH Visit (TeleHealth) [place] [address] Yue Darby MD [facility] HOSPICE AND PALLIATIVE MEDICINE [place], [place] [address] 04/12/2024 11:30 AM EDT Office [place] [address] Yue Darby MD [facility] DR HOSPICE AND [place] [address] 04/28/2024 8:30 AM EDT TH Visit (TeleHealth) [place] [address] Yue Darby MD [facility] HOSPICE AND [place] [address] documented as of this encounter Visit Diagnoses Not on filedocumented in this encounter Care Teams Film Color Tester Relationship Specialty Start Date End Date Donte Padgett MD [address] [place] [address] PCP - General Family Medicine 08/24/15 documented as of this encounter
--- OUTSIDE RECORDS SUMMARY | 2024-03-04 16:58 | XMS_ITS | Encounter Summary ---
Author Organization [facility] [place] [address] Care Team Providers Care Manager Msw Name Role Phone Donte Padgett MD Primary Care Provider [phone] [phone] Encounter Details Date Type Department Care Team (Late st Contact Info) Description 10/07/2016 Telephone [place] [phone] Deborah Fuentes MD [facility] [place] [address] Social History Tobacco Use Types Packs/Day Years [...] Miscellaneous Notes * Telephone Encounter - Armando Corona RN - 10/07/2016 9:38 AM EDT Hi, This patient is having chronic pain problems and had some nerve blocks in pain clinic. If he is notbetter I would like to see him if possible before I go away for 2 weeks at the end of this week . He could be seen on at 4.00. There really is not any other time. Would you contact him and see whether wants or needs to be seen, and see what you can do to set up something. Thanks, deborah Called and relayed message to Aly, he said nothing has changed, he is planning to be here at 4 pm. Thanks, Armando RN documented in this encounter Plan of Treatment Upcoming Encounters Date Type Department Care Team (Late st Contact Info) Description 03/17/2024 2:00 PM EDT TH Visit (TeleHealth) Neurology at [place] [phone] Yue Darby MD [facility] DR HOSPICE AND [place] [address] 04/12/2024 11:30 AM EDT Office [place] [address] Yue Darby MD [facility] DR HOSPICE AND [place] [address] 04/28/2024 8:30 AM EDT TH Visit (TeleHealth) [place] [address] Yue Darby MD [facility] DR HOSPICE AND [place] [address] documented as of this encounter Visit Diagnoses Not on filedocumented in this encounter Care Teams Manager Msw Relationship Specialty Start Date End Date Donte Padgett MD [address] [place] [address] [address] [facility] 1 [place] [address] PCP - General Family Medicine 08/24/15 documented as of this encounter
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
--- OUTSIDE RECORDS SUMMARY | 2024-03-04 16:58 | XMS_ITS | Encounter Summary ---
Author Organization [facility] [place] [address] Care Team Providers Care Jewelry Designer Name Role Phone Donte Padgett MD Primary Care Provider [phone] Reason for Visit * Reason Onset Date Comments Medication Refill 03/12/2018 Encounter Details Date Type Department Care Team (Late Contact Info) Description 03/12/2018 Refill [place] [address] Cesar Fuentes MD [facility] [place] [address] Social History Tobacco Use Types Packs/Day Years [...] PM EDT TH Visit (TeleHealth) [place] [address] Yue Darby MD [facility] HOSPICE AND PALLIATIVE MEDICINE [place], [place] [id number] 04/12/2024 11:30 AM EDT Office Visit [place] [address] Yue Darby MD [facility] DR HOSPICE [place] [address] 04/28/2024 8:30 AM EDT TH Visit (TeleHealth) [place] [address] Yue Darby MD [facility] HOSPICE [place] [address] documented as of this encounter Visit Diagnoses Not on filedocumented in this encounter Care Teams Jewelry Designer Relationship Specialty Start Date End Date Donte Padgett MD [address] [place] [address] PCP - General Family Medicine 08/24/15 documented as of this encounter
--- OUTSIDE RECORDS SUMMARY | 2024-03-04 16:58 | XMS_ITS | Encounter Summary ---
Author Organization [facility] Address [facility] [place] [address] Care Team Providers Care Dance Therapist Name Role Phone Donte Padgett MD Primary Care Provider [phone] Reason for Visit * Reason Onset Date Comments Medication Refill 07/13/2017 Encounter Details Date Type Department Care Team (Late Contact Info) Description 07/13/2017 [place] [address] Cesar Fuentes MD [facility] [place] [address] Social History Tobacco Use Types Packs/Day Years [...] PM EDT TH Visit (TeleHealth) [place] [address] Yue Darby MD [facility] HOSPICE AND PALLIATIVE MEDICINE [place], [place] [id number] 04/12/2024 11:30 AM EDT [place] [address] Yue Darby MD [facility] DR HOSPICE [place] [address] 04/28/2024 8:30 AM EDT TH Visit (TeleHealth) [place] [address] Yue Darby MD [facility] HOSPICE [place] [address] documented as of this encounter Visit Diagnoses Not on filedocumented in this encounter Care Teams Dance Therapist Relationship Specialty Start Date End Date Donte Padgett MD [address] [place] [address] PCP - General Family Medicine 08/24/15 documented as of this encounter
--- OUTSIDE RECORDS SUMMARY | 2024-03-04 16:58 | XMS_ITS | Encounter Summary ---
Author Organization [facility] Address [facility] [place] [address] Care Team Providers Care Stone Processing Machine Operator Name Role Phone Donte Padgett MD Primary Care Provider [phone] Reason for Visit * Reason Onset Date Comments Other 08/10/2018 Encounter Details Date Type Department Care Team (Late st Contact Info) Description 08/10/2018 Telephone [place] [address] Deborah Fuentes MD [facility] [place] [address] Other Social History Tobacco Use Types Packs/Day [...] Telephone Encounter - Rupinder Ortiz RN - 08/12/2018 3:[address] Fuentes: ?? OK just carry on as is. Stay on the Robaxin until we do the crossover to methadone and then if things are OK can stop it. ?? Thanks, Deborah ?? I phoned pt and reviewed/instructed above. He agrees with plan and verbalizes understanding. * Telephone Encounter - Rupinder Ortiz RN - 08/11/2018 11:[address] Fuentes: OK just carry on as is. Stay on the Robaxin until we do the crossover to methadone and then if things are OK can stop it. Thanks, Deborah I attempted to phone pt back to review above. There was no answer. Message left on voice mail to call back [phone]. * Telephone Encounter - Rupinder Ortiz RN - 08/11/2018 8:[address] Fuentes: ?? This gets complex. 1. Give him a prescription for methadone 5 mg bid, #60 2. Have him start methadone 5 mg daily now, and go down on the vicodin to 5 mg daily. 3. When he runs out of vicodin, which he will in 2-3 days, increase the methadone to 5 mg twice a day. 3. With the methadone he can take tylenol 500 mg tid prn. Thanksdeborah ? I phoned pt and reviewed instructed above per Dr. Fuentes. Pt agrees with plan and verbalizes understanding. New rx generated for provider review and signature. vicodin removed from medication list. Pt also states he forgot to mention that he has been on the Robaxn for a couple of weeks now and itis not helping. He wanted to update Dr. Fuentes. Plan: as above and I will forward to Dr. Fuentes for further review. * Telephone Encounter - Rupinder Ortiz RN - 08/10/2018 3:[address] Fuentes: This gets complex. 1. Give him a prescription for methadone 5 mg bid, #60 2. Have him start methadone 5 mg daily now, and go down on the vicodin to 5 mg daily. 3. When he runs out of vicodin, which he will in 2-3 days, increase the methadone to 5 mg twice a day. 3. With the methadone he can take tylenol 500 mg tid prn. Thanks, deborah I attempted to phone pt. There was no answer. Message left to call back [phone]. * Telephone Encounter - Rupinder Ortiz RN - 08/10/2018 11:50 AM EST I will forward to Dr. Fuentes for review. * Telephone Encounter - Nereyda Ritchie - 08/10/2018 10:39 AM EST Clinical Social Media Strategist Message Caller: Patient If not Pt / Relation to pt: Call back Number: [phone] Best time to reach caller: anytime Reason for call: Different medicaiton Message/information for the nurse: Patient states that at l;ast office visit Dr. Lopez discussed switching his pain medication. He was told to call when he was about out of his current medication which is Hydrocodone 1 tab 3x daily. He would like to switch to a different pain medication. The medication discussed was methadone but keeping the dosing the same as the hydrocodone. He will be out of his current medication on 08/12/2018 He would like the new prescription to be sent to [facility] in [place], [place] Disposition of Call ?? Routine Message sent to the Nurse documented in this encounter Plan of Treatment Upcoming Encounters Date Type Department Care Team (Late st Contact Info) Description 03/17/2024 2:00 PM EDT TH Visit (TeleHealth) [place] [address] Yue Darby MD [facility] HOSPICE [facility] [place] [address] 04/12/2024 11:30 AM EDT Office [place] [address] Yue Darby MD [facility] HOSPICE [place] [address] 04/28/2024 8:30 AM EDT TH Visit (TeleHealth) [place] [address] Yue Darby MD [facility] [place] [address] documented as of this encounter Visit Diagnoses Not on filedocumented in this encounter Care Teams Stone Processing Machine Operator Relationship Specialty Start Date End Date Donte Padgett MD [address] [place] [address] PCP - General Family Medicine 08/24/15 documented as of this encounter
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
--- OUTSIDE RECORDS SUMMARY | 2024-03-04 16:58 | XMS_ITS | Encounter Summary ---
Author Organization [facility] [place] [address] Care Team Providers Care Chart Picker Name Role Phone Donte Padgett MD Primary Care Provider [phone] Reason for Referral * Diagnostic Test (Routine) Specialty Diagnoses / Procedures Referred By Contac t Referred To Contact Radiology Diagnoses Paraplegia Procedures MRI Pelvis MSK (Bones Joints Muscle) WO CONTRAST MRI Hip wwo Contrast Left Cesar Fuentes MD [facility] [place] [address] [place] [address] Referral ID Status Reason Start Date Expiration Date V isits Requested Visits Authorized [id number] Specialty Service Requested 05/22/2016 05/22/2017 1 1 * Diagnostic Test (Routine) - Closed Specialty Diagnoses / Procedures Referred By Contac t Referred To Contact Radiology Diagnoses Paraplegia Procedures MRI Lumbar Spine wo Contrast (Generic) Cesar Fuentes MD [facility] [place] [address] [place] [address] Referral ID Status Reason Start Date Expiration Date V isits Requested Visits Authorized [id number] Closed Specialty Service Requested 05/22/2016 05/22/2017 1 1 Reason for Visit * Consultation (Routine) - Closed Specialty Diagnoses / Procedures Referred By Contac t Referred To Contact Neurology Diagnoses C6 spinal cord injury, subsequent encounter Mika East MD [facility] [place] [address] Cesar Fuentes MD [facility] [place] [address] Referral ID Status Reason Start Date Expiration Date V isits Requested Visits Authorized [id number] Closed Consult, Test & Treat 02/26/2016 02/25/2017 1 1 Encounter Details Date Type Department Care Team (Late st Contact Info) Description 05/22/2016 1:00 PM EST Office Visit Neurology at [place] [phone] Cesar Fuentes MD [facility] [place] [address] Paraplegia; Chronic left hip pain; Neurogenic bladder Social History Tobacco Use [...] Sign Reading Time Taken Comments Blood Pressure 108/63 05/22/2016 12:46 PM EST Pulse 73 05/22/2016 12:46 PM EST Temperature - - Respiratory Rate - - Oxygen Saturation - - Inhaled Oxygen Concentration - - Weight 78.5 kg (173 lb) 05/22/2016 12:4 6 PM EST pt reports... unable to stand Height 190.5 cm (6' 3) 05/22/2016 12:4 6 PM EST Body Mass Index 21.62 05/22/2016 12:46 PM EST documented in this encounter Patient Instructions * Patient Instructions* Cesar Fuentes MD - 05/22/2016 1:00 PM EST It is not clear why you are having this rather unusual pain. I suspect it is in some way related to muscle spasms in your pelvis. We need to exclude other problems in your spine and hip. I would like you to get an MRI scan of the spine and hip. Please get blood tests done here today. I will speak with Dr. East to coordinate care. Please try tizanidine starting with 1 pill at night, and increasing the dose every 2-3 days, to achieve a dose of 1 pill 4 times a day, one with each meal and one at bedtime I would like to see you back in any case in about 2 months Cesar Fuentes MD Department of Neurology [place] [address], [place] [address] Pager: [phone], #[phone] Email: [email or web address] documented in this encounter Progress Notes * Cesar Fuentes MD - 05/22/2016 1:00 PM EST Neurology Clinic Note Chief complaint: [...] that gave only modest improvement. Interval History: None, initial visit with me Past medical history: Patient Active Problem List [...] Unable Other: Not tested Gait: Unable Labs: Orders Placed This Encounter Procedures ??? MRI Lumbar Spine wo Contrast (Generic) ??? MRI Hip wwo Contrast Left ??? Hepatic Function Panel ??? Basic Metabolic Panel (non-fasting) ??? TSH ??? Vitamin B12 ??? CBC (with Diff) ??? Sedimentation rate ??? Tissue transglutaminase, IgA ? ? Lyme IgG & IgM Antibody ??? ROSI ??? Protein Electrophoresis, serum ??? T4 Total ??? Hemogram ??? Differential, Automated EKG: EEG: X-Ray: CAT scans: MRI scans: Unremarkable MRI scan abdomen and pelvis. MRI scan and lumbar spine without contrast and left hip with and without contrast requested Impression and suggestions: The patient has unfortunately [...] there is a component of iliopsoas spasm. I'm requesting some blood tests and additional imaging studies as noted above. I will speak with Dr. East to coordinate care. I suggested a trial of tizanidine. I would also give consideration to Tegretol. I will discuss withDr. East what blocks he has already done, and what other blocks might be attempted. I would giveconsideration to doing Botox injection of the left iliopsoas complex and seeing how he did. Thank you for this consultation. I will see the patient back in 2 months or sooner if necessary Cesar Fuentes MD [place] [address] Pager: [phone], #[phone] Email: [email or web address] CC: Dr. Dayron East documented in this encounter Plan of Treatment Upcoming Encounters Date Type Department Care Team (Late st Contact Info) Description 03/17/2024 2:00 PM EDT TH Visit (TeleHealth) [place] [address] Yue Darby MD [facility] HOSPICE AND [place] [address] 04/12/2024 11:30 AM EDT [place] [phone] Yue Darby MD [facility] HOSPICE AND [place] [address] 04/28/2024 8:30 AM EDT TH Visit (TeleHealth) Neurology at [facility] [place] [address] Yue Darby MD [facility] HOSPICE AND [place] [address] documented as of this encounter Procedures Procedure Name Priority Date/Time Associated Diagnosis Comments LYME IGG & IGM ANTIBODY Routine 05/22/2016 2:22 PM EST Paraplegia SCAN, PERIPHERAL BLOOD Routine 6 2:22 PM EST HEMOGRAM Routine 05/22/2016 2:22 PM EST Paraplegia DIFFERENTIAL, AUTOMATED Routine 05/22/2016 2:22 PM EST Paraplegia TISSUE TRANSGLUTAMINASE, IGA Routine 05/22/2016 2:22 PM EST Paraplegia SEDIMENTATION RATE Routine 05/22/2016 2: 22 PM EST Paraplegia CBC (WITH DIFF) Routine 05/22/2016 2:22 PM EST Paraplegia ROSI ANTIBODY SCREEN Routine 05/22/2016 2 :22 PM EST Paraplegia TSH Routine 05/22/2016 2:22 PM EST Paraplegia T4 TOTAL Routine 05/22/2016 2:22 PM EST Paraplegia PROTEIN ELECTROPHORESIS, SERUM Routine 05/22/2016 2:22 PM EST Paraplegia VITAMIN B12 Routine 05/22/2016 2:22 PM EST Paraplegia HEPATIC FUNCTION PANEL Routine 6 2:22 PM EST Paraplegia BASIC METABOLIC PANEL Routine 05/22/2016 2:22 PM EST Paraplegia documented in this encounter [...] which may be physiologic. Cesar Fuentes MD IMG MRI ORDERABLES * MRI Lumbar Spine wo [...] are disc degenerative changes and facet arthropathy [id number] and T12-L1. Intervertebral disc spaces in the [...] in context of the clinical situation (Reference- Darrynk et al, [id number]). Findings: (Prevalence in patients without low back pain), discdegeneration (decreased T2 signal, height loss, bulge) (91%), disc T2-signal loss(83%), disc height loss (56%), disc bulge (64%), disc protrusion (32%), annularfissure (38%). Cesar Fuentes MD IMG MRI ORDERABLES * Scan, Peripheral Blood (05/22/2016 2:22 PM EST) Plat estimate Normal [facility] RBC Morphology Abnormal [facility] Microcyte 6-10 /HPF [facility] Ovalocytes 1-5 /HPF [facility] Target Cells 1-5 /HPF [facility] Blood specimen (specimen) 05/22/2016 2:22 PM EST 05/22/2016 2:36 PM EST Narrative Resulting Agency Comment Spec In Lab Cesar Fuentes MD HEMATOLOGY ORDERABLE S [facility] [place] [address] * (ABNORMAL) Differential, Automated (05/22/2016 2:22 PM EST) Neutrophil % 61.5 % [facility] Neutrophil Absolute 3.52 1.70 - 6.10 x10(3)/mc L [facility] Lymph % 27.3 % [facility] Lymphocytes Abs 1.6 0.9 - 3.2 x10(3)/[facility] Monocyte % 8.1 % [facility] Monocyte Abs 0.5 0.3 - 0.9 x10(3)/[facility] Eos % 1.8 % [facility] Eosinophils Abs 0.1 0.0 - 0.4 x10(3)/[facility] Basophil % 0.4 % [facility] Baso Absolute 0.0 0.0 - 0.1 x10(3)/[facility] Immature Gran % 0.90 % [facility] Comment: Immature granulocytes(IG's)percentage and absolute count will include metamyelocytes, myelocytes, and promyelocytes. Blood smears from CBCs yielding IG's will be scanned manually for concordance. If this scan disagrees with the automated IG or if promyelocytes are noted, a manual differential will be performed. Immature Gran Absolute 0.05(H) 0.00 - 0.04 x10(3)/[facility] Blood specimen (specimen) 05/22/2016 2:22 PM EST 05/22/2016 2:36 PM EST Narrative Resulting Agency Comment Spec In Lab Cesar Fuentes MD HEMATOLOGY ORDERABLE S Performing Organization Address City/State/[facility] Co de Phone Number [facility] [place] [address] * (ABNORMAL) Hemogram (05/22/2016 2:22 PM EST) White Blood Cell 5.7 4.0 - 9.5 x10(3)/[facility] Red Blood Cell 5.09 4.58 - 5.54 x10(6)/[facility] Hemoglobin 9.6(L) 13.7 - 16.5 gm/dL [facility] Hematocrit 33.1(L) 40.5 - 48.5 % [facility] Mean Cell Volume 65.0(L) 82.9 - 93.1 fL [facility] Mean Cell Hemoglobin 18.9(L) 27.5 - 32.1 pg [facility] Mean Cell Hemoglobin Concentration 29.0(L) 32.0 - 35.7 gm/dL [facility] Platelet 243 145 - 357 x10(3)/mc L [facility] RDW Standard Deviation 39.5 36.0 - 45.0 [facility] RDW coefficient of variation 17.2(H) 11.4 - 13.8 % [facility] Mean Platelet Volume 10.3 7.6 - 12.9 [facility] NRBC% auto 0.0 % [facility] NRBC Absolute 0.000 0.000 - 0.000 x10(3)/mc L [facility] Blood specimen (specimen) 05/22/2016 2:22 PM EST 05/22/2016 2:36 PM EST Narrative Resulting Agency Comment Spec In Lab Cesar Fuentes MD HEMATOLOGY ORDERABLE S Performing Organization Address City/[facility] Co de Phone Number [facility] [place] [address] * T4 Total (05/22/2016 2:22 PM EST) T4 Total 6.6 5.1 - 10.8 mcg/dL [facility] Comment: Reference Range: Cord Blood: ??6.9-14.4 mcg/dL Females: ??7.2-14.2 mcg/dL Pediatric ranges: ??Interpret with caution-ranges have not been verified Blood specimen (specimen) 05/22/2016 2:22 PM EST 05/22/2016 2:36 PM EST Narrative Resulting Agency Comment Spec In Lab Cesar Fuentes MD CHEMISTRY ORDERABLES Performing Organization Address City/[facility]/ZIP Co de Phone Number [facility] [place] [address] * Protein Electrophoresis, serum (05/22/2016 2:22 PM EST) Total Prot Electrophoresis 6.9 6.1 - 8.0 gm/dL [facility] Albumin Electrophoresis 4.46 3.60 - 6.00 gm/dL [facility] Alpha 1 Globulin 0.16 0.10 - 0.30 gm/dL [facility] Alpha 2 Globulin 0.63 0.40 - 0.90 gm/dL [facility] Beta Globulin 0.81 0.50 - 1.00 gm/dL [facility] Gamma Globulin 0.83 0.50 - 1.30 gm/dL [facility] M1 Band None Detected [facility] Blood specimen (specimen) 05/22/2016 2:22 PM EST 05/22/2016 2:36 PM EST Narrative Resulting Agency Comment Spec In Lab Cesar Fuentes MD CHEMISTRY ORDERABLES Performing Organization Address City/[facility]/ZIP Co de Phone Number [facility] [place] [address] * ROSI (05/22/2016 2:22 PM EST) ROSI Neg Neg [facility] Blood specimen (specimen) 05/22/2016 2:22 PM EST 05/23/2016 7:34 AM EST Narrative Resulting Agency Comment Spec In Lab Cesar Fuentes MD LAB SEND OUT ORDERAB LES Performing Organization Address City/[facility]/ZIP Co de Phone Number [facility] [place] [address] * Lyme IgG & IgM Antibody (05/22/2016 2:22 PM EST) Lyme Antibody Neg Neg [facility] Blood specimen (specimen) 05/22/2016 2:22 PM EST 05/23/2016 6:51 AM EST Narrative Resulting Agency Comment Spec In Lab Cesar Fuentes MD IMMUNOLOGY ORDERABLE S Performing Organization Address [facility] de Phone Number [facility] [place] [address] * Tissue transglutaminase, IgA (05/22/2016 2:22 PM EST) TTG IgA Ab 0.4 0.1 - 10.0 u/ml [facility] Comment: Negative = <7 U/mL Equivocal = 7-10 U/mL Positive = >10 U/mL Blood specimen (specimen) 05/22/2016 2:22 PM EST 05/23/2016 7:36 AM EST Narrative Resulting Agency Comment Spec In Lab Cesar Fuentes MD IMMUNOLOGY ORDERABLE S Performing Organization Address [facility] Phone Number [facility] [place] [address] * Sedimentation rate (05/22/2016 2:22 PM EST) Sedimentation Rate Automated 8 0 - 15 mm/hr [facility] Blood specimen (specimen) 05/22/2016 2:22 PM EST 05/22/2016 2:36 PM EST Narrative Resulting Agency Comment Spec In Lab Cesar Fuentes MD HEMATOLOGY ORDERABLE S Performing Organization Address [facility] Co de Phone Number [facility] [place] [address] * Vitamin B12 (05/22/2016 2:22 PM EST) Vitamin B12 410 207 - 974 pg/mL [facility] Blood specimen (specimen) 05/22/2016 2:22 PM EST 05/22/2016 2:36 PM EST Narrative Resulting Agency Comment Spec In Lab Cesar Fuentes MD CHEMISTRY ORDERABLES Performing Organization Address City/[facility]/ZIP Co de Phone Number [facility] [place] [address] * TSH (05/22/2016 2:22 PM EST) [facility] Thyroid Stimulating Hormone 1.63 0.27 - 4.20 mcIU/mL [facility] Blood specimen (specimen) 05/22/2016 2:22 PM EST 05/22/2016 2:36 PM EST Narrative Resulting Agency Comment Spec In Lab Cesar Fuentes MD CHEMISTRY ORDERABLES Performing Organization Address [facility] Co de Phone Number [facility] [place] [address] * (ABNORMAL) Basic Metabolic Panel (non-fasting) (05/22/2016 2:22 PM EST) [facility] Glucose 86 65 - 199 mg/dL [facility] Comment:Diabetes: >=200 mg/d L plus symptoms Blood Urea Nitrogen 11 10 - 20 mg/dL [facility] Creatinine 0.58(L) 0.80 - 1.50 mg/dL [facility] Comment: Please note that the pediatric reference intervals supplied above were not validated at [facility]. Results from pediatric patients should be interpreted in conjunction to the patient's age, height and muscle mass. Sodium 138 135 - 145 mmol/L [facility] Potassium 4.0 3.5 - 5.0 mmol/L [facility] Comment: Please note: ??Patients with WBC >100,000 may have falsely elevated Potassium levels. ??For accurate Potassium quantification in these patients send serum separator tube (gold top) for subsequent determinations. ??Contact the Clinical Chemistry Laboratory if there are any questions. Chloride 102 98 - 107 mmol/L [facility] Carbon Dioxide 22 22 - 31 mmol/L [facility] Anion Gap 14 5 - 15 mmol/L [facility] Calcium 9.1 8.5 - 10.5 mg/dL [facility] Est Glomerular Filtration Rate >60 >=60 [facility] Comment: This estimated GFR (eGFR) value was calculated using the MDRD equation which has been validated on patients between the ages of 18 and 70. The MDRD should not be used to assess kidney function in patients < 18 years of age or in patients with extremes of body mass, or in patients with acute kidney failure. This value should be multiplied by 1.2 for patients. For further information please copy and paste the following links into your internet browser. [email or web address]/DHnkdep [email or web address] Blood specimen (specimen) 05/22/2016 2:22 PM EST 05/22/2016 2:36 PM EST Narrative Resulting Agency Comment Spec In Lab Cesar Fuentes MD CHEMISTRY ORDERABLES Performing Organization Address [facility] Co de Phone Number [facility] [place] [address] * Hepatic Function Panel (05/22/2016 2:22 PM EST) Protein, Total 7.0 6.1 - 8.0 gm/dL [facility] Albumin 4.5 3.2 - 5.2 gm/dL [facility] Aspartate Aminotransferase 14 0 - 39 unit/L [facility] Alanine Aminotransferase 12 0 - 55 unit/L [facility] Alkaline Phosphatase 66 40 - 120 unit/L [facility] Bilirubin, Total 0.3 0.2 - 1.3 mg/dL [facility] Bilirubin, Direct 0.1 0.0 - 0.3 mg/dL [facility] Blood specimen (specimen) 05/22/2016 2:22 PM EST 05/22/2016 2:36 PM EST Narrative Resulting Agency Comment Spec In Lab Cesar Fuentes MD CHEMISTRY ORDERABLES Performing Organization Address [facility] Co de Phone Number [facility] [place] [address] documented in this encounter Visit Diagnoses Diagnosis Paraplegia Chronic left hip pain Pain in joint, pelvic region and thigh Neurogenic bladder Neurogenic bladder, NOS Paraplegia documented in this encounter Care Teams Chart Picker Relationship Specialty Start Date End Date Donte Padgett MD [address] [place] [address] PCP - General Family Medicine 08/24/15 documented as of this encounter
--- OUTSIDE RECORDS SUMMARY | 2024-03-04 16:58 | XMS_ITS | Encounter Summary ---
Author Organization [facility] Address [facility] [place] [address] Care Team Providers Care Od Grinder Operator Name Role Phone Donte Padgett MD Primary Care Provider [phone] Reason for Visit * Reason Onset Date Comments Medication Refill 02/09/2017 Encounter Details Date Type Department Care Team (Late st Contact Info) Description 02/09/2017 [place] [phone] Cesar Fuentes MD [facility] [place] [address] Social History Tobacco Use Types Packs/Day Years [...] Telephone Encounter - Armando Corona RN - 02/09/2017 1:12 PM EDT Patient requesting med refill. Last appt 12/31 Next appt 03/10 * Telephone Encounter - Moe Park LPN - 02/09/2017 12:48 PM EDT Patient calling for renewal HYDROcodone-acetaminophen (NORCO) 5-325 mg Tablet to [place] in [facility]. He will be out tomorrow. documented in this encounter Plan of Treatment Upcoming Encounters Date Type Department Care Team (Late st Contact Info) Description 03/17/2024 2:00 PM EDT TH Visit (TeleHealth) [place] [address] Yue Darby MD [facility] DR HOSPICE AND [place] [address] 04/12/2024 11:30 AM EDT Office [place] [phone] Yue Darby MD [facility] DR HOSPICE AND [place] [address] 04/28/2024 8:30 AM EDT TH Visit (TeleHealth) [place] [phone] Yue Darby MD [facility] DR HOSPICE AND [place] [address] documented as of this encounter Visit Diagnoses Not on filedocumented in this encounter Care Teams Od Grinder Operator Relationship Specialty Start Date End Date Donte Padgett MD [address] [place] [address] [address] [facility] [address] [place] [address] PCP - General Family Medicine 08/24/15 documented as of this encounter
--- OUTSIDE RECORDS SUMMARY | 2024-03-04 16:58 | XMS_ITS | Encounter Summary ---
Author Organization [facility] [place] [address] Care Team Providers Care Front End Software Developer Name Role Phone Donte Padgett MD Primary Care Provider [phone] Reason for Visit * Reason Onset Date Comments Medication Refill 02/10/2018 Encounter Details Date Type Department Care Team (Late Contact Info) Description 02/10/2018 [place] [address] Cesar Fuentes MD [facility] [place] [address] Social History Tobacco Use Types Packs/Day Years [...] PM EDT TH Visit (TeleHealth) [place] [address] Yue Darby MD [facility] HOSPICE AND PALLIATIVE MEDICINE [place], [place] [id number] 04/12/2024 11:30 AM EDT Office [place] [address] Yue Darby MD [facility] DR HOSPICE AND [place] [address] 04/28/2024 8:30 AM EDT TH Visit (TeleHealth) [place] [address] Yue Darby MD [facility] HOSPICE AND [place] [address] documented as of this encounter Visit Diagnoses Not on filedocumented in this encounter Care Teams Front End Software Developer Relationship Specialty Start Date End Date Donte Padgett MD [address] [place] [address] PCP - General Family Medicine 08/24/15 documented as of this encounter
--- OUTSIDE RECORDS SUMMARY | 2024-03-04 16:58 | XMS_ITS | Encounter Summary ---
Author Organization [facility] [place] [address] Care Team Providers Care Cafeteria Cashier Name Role Phone Donte Padgett MD Primary Care Provider +1 [phone] Encounter Details Date Type Department Care Team (Late st Contact Info) Description 03/10/2017 4:00 PM EDT [place] [address] Cesar Fuentes MD [facility] [place] [address] Groin pain, left; Spasticity Social History Tobacco Use Types Packs/Day [...] Sign Reading Time Taken Comments Blood Pressure 120/69 03/10/2017 3:58 PM EDT Pulse 68 03/10/2017 3:58 PM EDT Temperature - - Respiratory Rate - - Oxygen Saturation - - Inhaled Oxygen Concentration - - Weight 80.7 kg (178 lb) 03/10/2017 3:58 PM EDT reported - wheelchair Height 190.5 cm (6' 3) 03/10/2017 3:58 PM EDT reported Body Mass Index 22.25 03/10/2017 3:58 PM EDT documented in this encounter Patient Instructions * Patient Instructions* Cesar Fuentes MD - 03/10/2017 4:00 PM EDT It is not clear why none of the measures we have taken to help you with the pain in your left groinand hip have made any difference. I fully expected the Botox injections to do something for you and am surprised they made no difference At this point I do not have any other good ideas for treatment besides keeping you on a moderate dose of Vicodin. I'm happy to write a prescription for you on a regular basis. Several other treatments that can be helpful have not worked for you. You could ask her primary physician for a referral to the spine program at [facility] if they have any other thoughts I would like to see you back in 6 months or sooner if anything changes. Cesar Fuentes [place] [address] Pager: [phone], #[phone] Email: [email or web address] documented in this encounter Progress Notes * Cesar Fuentes MD - 03/10/2017 4:00 PM EDT Neurology Clinic Note Chief complaint: [...] similarly unhelpful. Previously baclofen desipramine and Neurontin has not been helpful Additional anesthetic nerve and muscle blocks done by Dr. East have also been unhelpful. I arranged with Dr. Chavez for the patient to get a Botox injection of the iliopsoas, and that too has made no difference. 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 Review of [...] indicates no known allergies. Physical Exam: BP 120/69 (BP Location (NBP): Right arm, Patient Position: Sitting, BP Cuff Sizes: Adult (25-34 cm)) Pulse 68 Ht (!) 190.5 cm (6' 3) Comment: reported Wt 80.7 kg (178 lb) Comment: reported - wheelchair BMI 22.25 kg/m2 HEENT: Normal Heart: Normal S1, S2, [...] which I will continue to write for. I did advise him the speak with his PCP about getting another opinion possibly at the [facility] Thank you for this consultation. I will see the patient back in 6 months or sooner if necessary. Cesar Fuentes [place] [address] Pager: [phone], #[phone] Email: [email or web address] CC: Dr. Dayron Chavez documented in this encounter Plan of Treatment Upcoming Encounters Date Type Department Care Team (Late st Contact Info) Description 03/17/2024 2:00 PM EDT TH Visit (TeleHealth) [place] [address] Yue Darby MD [facility] DR HOSPICE [place] [address] 04/12/2024 11:30 AM EDT Office Visit Neurology at [place] [phone] Yue Darby MD [facility] DR HOSPICE [place] [address] 04/28/2024 8:30 AM EDT TH Visit (TeleHealth) Neurology at [place] [phone] Yue Darby MD [facility] DR HOSPICE [place] [address] documented as of this encounter Visit Diagnoses Diagnosis Groin pain, left Spasticity Abnormal involuntary movements documented in this encounter Care Teams Cafeteria Cashier Relationship Specialty Start Date End Date Donte Padgett MD [address] [place] [address] [facility] [address] [place] [address] PCP - General Family Medicine 08/24/15 documented as of this encounter
--- OUTSIDE RECORDS SUMMARY | 2024-03-04 16:58 | XMS_ITS | Encounter Summary ---
Author Organization [facility] [place] [address] Care Team Providers Care Hardware Supplies Sales Representative Name Role Phone Donte Padgett MD Primary Care Provider [phone] [phone] Encounter Details Date Type Department Care Team (Late st Contact Info) Description 09/16/2017 4:30 PM EDT Office [place] [address] [facility] [place] [address] Groin pain, left; Spasticity; Muscle spasticity Social History Tobacco Use Types [...] Sign Reading Time Taken Comments Blood Pressure 113/56 09/16/2017 4:08 PM EDT Pulse 74 09/16/2017 4:08 PM EDT Temperature - - Respiratory Rate - - Oxygen Saturation - - Inhaled Oxygen Concentration - - Weight 78.5 kg (173 lb) 09/16/2017 4:08 PM EDT reported - wheelchair Height 190.5 cm (6' 3) 09/16/2017 4:08 PM EDT reported Body Mass Index 21.62 09/16/2017 4:08 PM EDT documented in this encounter Patient Instructions * Patient Instructions* Cesar Fuentes MD - 09/16/2017 4:30 PM EDT I think you are doing [...] I am happy to continue prescribing that. Various other medications we have tried have not been of any use. I will be interested to see what else the [facility] can recommend and whether it does any good I would like to see you back in 6 months or sooner if necessary. Cesar Fuentes MD [place] [address] Pager: [phone], #[phone] Email: [email or web address] documented in this encounter Progress Notes * Cesar Fuentes MD - 09/16/2017 4:30 PM EDT Neurology Clinic Note Chief [...] Vicodin. He is not taking any other and she spasmodic or anti-spasticity medication. 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 Review of [...] indicates no known allergies. Physical Exam: BP 113/56 (BP Location (NBP): Right arm, Patient Position: Sitting, BP Cuff Sizes: Adult (25-34 cm)) Pulse 74 Ht 190.5 cm (6' 3) Comment: reported Wt 78.5 kg (173 lb) Comment: reported - wheelchair BMI 21.62 kg/m2 HEENT: Normal Heart: Normal [...] which I will continue to write for. He is getting another opinion at [facility]. I do not know the results of this Thank you for this consultation. I will see the patient back in 6 months or sooner if necessary. Cesar Fuentes MD [place] [address] Pager: [phone], #[phone] Email: [email or web address] CC: Dr. Dayron Chavez documented in this encounter Plan of Treatment Upcoming Encounters Date Type Department Care Team (Late st Contact Info) Description 03/17/2024 2:00 PM EDT TH Visit (TeleHealth) Neurology at [place] [phone] [facility] HOSPICE AND [place] [address] 04/12/2024 11:30 AM EDT Office [place] [phone] [facility] HOSPICE AND [place] [address] 04/28/2024 8:30 AM EDT TH Visit (TeleHealth) [place] [address] [facility] HOSPICE AND [place] [address] documented as of this encounter Visit Diagnoses Diagnosis Groin pain, left Spasticity Abnormal involuntary movements Muscle spasticity Spasm of muscle documented in this encounter Care Teams Hardware Supplies Sales Representative Relationship Specialty Start Date End Date Donte Padgett MD [address] [place] [address] PCP - General Family Medicine 08/24/15 documented as of this encounter
--- OUTSIDE RECORDS SUMMARY | 2024-03-04 16:58 | XMS_ITS | Encounter Summary ---
Author Organization Count Includes [facility] [address] Care Team Providers Care Rug Repairer Name Role Phone Donte Padgett MD Primary Care Provider +1 [phone] Encounter Details Date Type Department Care Team (Late st Contact Info) Description 08/11/2016 [place] [address] Chrystal Calvillo MD [facility] [place] [address] Social History Tobacco Use Types Packs/Day Years [...] as of this encounter Progress Notes * Chrystal Calvillo MD - 08/11/2016 3:01 PM EST Images from the original note were not included. RADIOLOGY FOCUSED H&P and PRE-PROCEDURE NOTE: PCP: Donte Padgett MD Referring Physician: No ref. provider found Planned Procedure: Psoas muscle injection Procedure Indication: Pain at left psoas muscle Presenting Diagnosis/ Complaint: Aly De La Torre is a 26 y.o. male with traumatic paraplegia with little recovery. The cause of his hip and groin pain is unclear. Neuro radiology consulted for anesthetic block of left iliopsoas. Past Medical/Surgical History: Patient Active Problem List Diagnosis Code ??? 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 Paraplegia G82.20 ??? Chronic left hip pain M25.552, G89.29 ??? Neurogenic bladder N31.9 No past medical history on file. Past Surgical History Procedure Laterality Date ??? Pro colonoscopy, diagnostic N/A 10/18/2015 COLONOSCOPY, DIAGNOSTIC performed by Seth Yeh MD at [facility] ??? Pro upper gi endoscopy, biopsy N/A 10/18/2015 EGD WITH BIOPSY performed by Seth Yeh MD at [facility] ??? Pro unlisted diagnostic gastroenterology procedure N/A 12/11/2015 VIDEO CAPSULE ENDOSCOPY performed by Lance Pandya MD at [facility] Medications: Current Outpatient Prescriptions on File Prior to Visit Medication Sig Dispense Refill ??? carBAMazepine (TEGRETOL XR) 200 mg Tablet Sustained Release 12 hr Take 2 tablets by mouth 2 times daily. 120 tablet 11 ??? omeprazole 20 mg Tablet, Delayed Release (E.C.) Take by mouth daily. No current facility-administered medications on file prior to visit. Allergies: Review of patient's allergies indicates no known allergies. Social History and Habits: Social History Social History ??? Marital status: Single Spouse name: N/A ??? Number of children: N/A ??? Years of education: N/A Occupational History ??? Not on file. Social History Main Topics ??? Smoking status: Current Every Day Smoker Packs/day: 0.50 Types: Cigarettes ??? Smokeless tobacco: Never Used ??? Alcohol use No ??? Drug use: Yes Special: Marijuana Comment: in process of medical card ??? Sexual activity: Not on file Other Topics Concern ??? Not on file Social History Narrative Significant Family History: No family history on file. Physical Examination: pending Labs: Lab Results Component Value Date WBC 5.7 05/22/2016 HCT 33.1 (L) 05/22/2016 PLATELET 243 05/22/2016 BUN 11 05/22/2016 CREATININE 0.58 (L) 05/22/2016 ALKPHOS 66 05/22/2016 AST 14 05/22/2016 ALBUMIN 4.5 05/22/2016 BILIDIR 0.1 05/22/2016 BILITOT 0.3 05/22/2016 ALT 12 05/22/2016 PROT 7.0 05/22/2016 Imaging: ASA: Pending (to be assessed in angio the day of procedure) Mallampati Class: Pending (to be assessed in angio the day of procedure) Assessment/Plan: 26 y.o. male with traumatic paraplegia with little recovery. The cause of his hip and groin pain is unclear. Neuro radiology consulted for anesthetic block of left iliopsoas. Labs to be performed day of procedure: none Medication to STOP: none Planned access site: left psoas muscle Position: tbd Consent: Pending Chrystal Calvillo MD (Pager #[phone]) 08/11/2016 documented in this encounter Plan of Treatment Upcoming Encounters Date Type Department Care Team (Late st Contact Info) Description 03/17/2024 2:00 PM EDT TH Visit (TeleHealth) [place] [address] Yue Darby MD [facility] HOSPICE AND P[place]IAT[place] [address] 04/12/2024 11:30 AM EDT [place] [phone] Yue Darby MD [facility] HOSPICE AND P[place] [address] 04/28/2024 8:30 AM EDT TH Visit (TeleHealth) [place] [address] Yue Darby MD [facility] HOSPICE AND P[place]IAT[place] [address] documented as of this encounter Visit Diagnoses Not on filedocumented in this encounter Care Teams Rug Repairer Relationship Specialty Start Date End Date Donte Padgett MD [address] [address] PCP - General Family Medicine 08/24/15 documented as of this encounter
--- OUTSIDE RECORDS SUMMARY | 2024-03-04 16:58 | XMS_ITS | Encounter Summary ---
Author Organization [facility] [place] [address] Care Team Providers Care Landfill Grader Name Role Phone Donte Padgett MD Primary Care Provider +1 [phone] Reason for Visit * Reason Onset Date Comments Medication Refill 11/10/2016 Encounter Details Date Type Department Care Team (Late Contact Info) Description 11/10/2016 [place] [address] Cesar Fuentes MD [facility] [place] [address] Social History Tobacco Use Types Packs/Day Years [...] PM EDT TH Visit (TeleHealth) [place] [address] Yue Darby MD [facility] HOSPICE AND PALLIATIVE MEDICINE [place], [place] [address] 04/12/2024 11:30 AM EDT [place] [address] Yue Darby MD [facility] DR HOSPICE [place] [address] 04/28/2024 8:30 AM EDT TH Visit (TeleHealth) [place] [address] Yue Darby MD [facility] HOSPICE [place] [address] documented as of this encounter Visit Diagnoses Not on filedocumented in this encounter Care Teams Landfill Grader Relationship Specialty Start Date End Date Donte Padgett MD [address] [place] [address] PCP - General Family Medicine 08/24/15 documented as of this encounter
--- OUTSIDE RECORDS SUMMARY | 2024-03-04 16:58 | XMS_ITS | Encounter Summary ---
Author Organization [facility] Address [facility] [address] Care Team Providers Care Fabric Machine Operator Name Role Phone Donte Padgett MD Primary Care Provider [phone] [phone] Reason for Visit * Reason Onset Date Comments Medication Refill 11/10/2016 Encounter Details Date Type Department Care Team (Late st Contact Info) Description 11/10/2016 [place] [address] Lindsay Bundy CMA Medication Refill Social History Tobacco Use Types [...] Telephone Encounter - Lindsay Bundy CMA - 11/10/2016 1:41 PM EDT New RX for HYDROcodone-acetaminophen (NORCO) 5-325 mg Tablet mailed to the patient's home address on file per request. documented in this encounter Plan of Treatment Upcoming Encounters Date Type Department Care Team (Late st Contact Info) Description 03/17/2024 2:00 PM EDT TH Visit (TeleHealth) [place] [address] Yue Darby MD [facility] HOSPICE [place] [address] 04/12/2024 11:30 AM EDT [place] [address] Yue Darby MD [facility] HOSPICE [place] [address] 04/28/2024 8:30 AM EDT TH Visit (TeleHealth) [place] [address] Yue Darby MD [facility] HOSPICE [place] [address] documented as of this encounter Visit Diagnoses Not on filedocumented in this encounter Care Teams Fabric Machine Operator Relationship Specialty Start Date End Date Donte Padgett MD [address] [place] [address] PCP - General Family Medicine 08/24/15 documented as of this encounter
--- OUTSIDE RECORDS SUMMARY | 2024-03-04 16:58 | XMS_ITS | Encounter Summary ---
Author Organization [facility] [place] [address] Care Team Providers Care County Historian Name Role Phone Donte Padgett MD Primary Care Provider +1 [phone] Reason for Visit * Reason Onset Date Comments Medication Refill 08/08/2016 Encounter Details Date Type Department Care Team (Late st Contact Info) Description 08/08/2016 Refill [place] [address] Mika East MD [facility] [place] [address] Chronic left hip pain Social History Tobacco [...] PM EDT TH Visit (TeleHealth) [place] [address] Yue Darby MD [facility] HOSPICE AND PALLIATIVE [place] [address] 04/12/2024 11:30 AM EDT Office [place] [address] Yue Darby MD [facility] HOSPICE AND PALLIATIVE [place] [address] 04/28/2024 8:30 AM EDT TH Visit (TeleHealth) [place] [address] Yue Darby MD [facility] HOSPICE AND PALLIATIVE [place] [address] documented as of this encounter Visit Diagnoses Diagnosis Chronic left hip pain Pain in joint, pelvic region and thigh documented in this encounter Care Teams County Historian Relationship Specialty Start Date End Date Donte Padgett MD [address] [place] [address] PCP - General Family Medicine 08/24/15 documented as of this encounter
--- OUTSIDE RECORDS SUMMARY | 2024-03-04 16:58 | XMS_ITS | Encounter Summary ---
Author Organization [facility] Address [facility] [place] [address] Care Team Providers Care Diffuser Operator Name Role Phone Donte Padgett MD Primary Care Provider +1 -[phone] Encounter Details Date Type Department Care Team (Late st Contact Info) Description 09/08/2018 [place] [address] Cesar Fuentes MD [facility] [place] [address] Social History Tobacco Use Types Packs/Day Years [...] Telephone Encounter - Patricia Busch RN - 09/08/2018 2:36 PM EST Spoke with slab off mill tender at [facility] Their drug screen test is a send out to [place] and does not screen for ethanol or tricyclics - informed the test they ar able to do for UDS is fine * Telephone Encounter - Patricia Busch RN - 09/08/2018 1:24 PM EST Call placed to lab with VM reached and message left asking for call back - direct line given with request he call and leave detailed msg regarding questions * Telephone Encounter - Pattie Adkins - 09/08/2018 10:37 AM EST Clinical Building Architect Message Caller: Darryl García If not Pt / Relation to pt: [facility] Lab Call back Number:[phone] Best time to reach caller: anytime Reason for call: Lab orders Message/information for the nurse: Darryl García called stating that she has some questions about 's lab order for this patient that is marked Drugs of abuse compliance monitoring panel, urine. Disposition of Call ?? Routine Message sent to the Nurse documented in this encounter Plan of Treatment Upcoming Encounters Date Type Department Care Team (Late st Contact Info) Description 03/17/2024 2:00 PM EDT TH Visit (TeleHealth) [place] [address] Yue Darby MD [facility] HOSPICE [place] [address] 04/12/2024 11:30 AM EDT [place] [address] Yue Darby MD [facility] HOSPICE [place] [address] 04/28/2024 8:30 AM EDT TH Visit (TeleHealth) [place] [address] Yue Darby MD [facility] HOSPICE [place] [address] documented as of this encounter Visit Diagnoses Not on filedocumented in this encounter Care Teams Diffuser Operator Relationship Specialty Start Date End Date Donte Padgett MD [address] [facility] [address] [place] [address] PCP - General Family Medicine 08/24/15 documented as of this encounter
--- OUTSIDE RECORDS SUMMARY | 2024-03-04 16:59 | XMS_ITS | Encounter Summary ---
Author Organization [facility] Address [address] [place] [address] Care Team Providers Care Orthodontist Assistant Name Role Phone Donte Padgett MD Primary Care Provider +1 [phone] Reason for Visit * Reason Onset Date Comments Appointment Related 06/16/2018 Encounter Details Date Type Department Care Team (Late st Contact Info) Description 06/16/2018 Telephone [facility] Physical Medicine & Rehabilitation - [place] [address] Gabby Mcintosh MD [address] [place] [address] Appointment Related Social History Tobacco Use Types Packs/Day Years Used Date Smoking Tobacco: Never Assessed Sex and Gender Information Value Date Recorded Sex Assigned at Not on file Gender Identity Not on file Sexual Orientation Not on file documented as of this encounter Functional Status Functional Status Response Date of Assess ment Because of a physical, menta l, or emotional condition, does this person have difficulty doing errands alone such as visiting a doctor's office or shopping? Yes 08/18/2017 Cognitive Status Response Date of Assessm ent Because of a physical, menta l, or emotional condition, does this person have serious difficulty concentrating, remembering, or making decisions? No 08/18/2017 documented as of this encounter Miscellaneous Notes * Telephone Encounter - Anu Garcia - 06/16/2018 3620 EST Aly called to cancel appointment with Gabby Mcintosh MD on 06-17-18 at 2:30 pm due to scheduling conflict. Patient would like a call back to reschedule? Patient will call back to reschedule documented in this encounter Plan of Treatment Not on file documented as of this encounter Visit Diagnoses Not on filedocumented in this encounter Care Teams Orthodontist Assistant Relationship Specialty Start Date End Date Donte Padgett MD PCP - General 07/20/14 documented as of this encounter
--- OUTSIDE RECORDS SUMMARY | 2024-03-04 16:59 | XMS_ITS | Encounter Summary ---
Author Organization [facility] Address [address] [place] [address] Care Team Providers Care Admissions Director Name Role Phone Donte Padgett MD Primary Care Provider [phone] [phone] Encounter Details Date Type Department Care Team (Late st Contact Info) Description 04/10/2017 Results Only Imaging [facility] [phone] Unknown, Provider, Social History Tobacco Use Types Packs/Day Years Used Date Smoking Tobacco: Never Assessed Sex and Gender Information Value Date Recorded Sex Assigned at Not on file Gender Identity Not on file Sexual Orientation Not on file documented as of this encounter Plan of Treatment Pending Results Name Type Priority Associated Diagnoses Date /Time OUTSIDE IMAGES - CT BODY Imaging 04/10/2017 19:40 EDT documented as of this encounter Visit Diagnoses Not on filedocumented in this encounter Care Teams Admissions Director Relationship Specialty Start Date End Date Donte Padgett MD PCP - General 07/20/14 documented as of this encounter
--- OUTSIDE RECORDS SUMMARY | 2024-03-04 16:59 | XMS_ITS | Encounter Summary ---
Author Organization [facility] Address [address] [place] [address] Care Team Providers Care Printing Worker Supervisor Name Role Phone Donte Padgett MD Primary Care Provider [phone] [phone] Reason for Visit * Reason Onset Date Comments DME 07/21/2014 Encounter Details Date Type Department Care Team (Late st Contact Info) Description 07/21/2014 Telephone [facility] Rehabilitation Therapy - [facility] [address], [place] [id number] Mohini Lopez, PT [address] [place] [address] DME Social History Tobacco Use Types Packs/Day Years Used Date Smoking Tobacco: Never Assessed Sex and Gender Information Value Date Recorded Sex Assigned at Not on file Gender Identity Not on file Sexual Orientation Not on file documented as of this encounter Miscellaneous Notes * Telephone Encounter - Mohini Lopez P, PT - 07/21/2014 1712 EST Attempted to call Aly regarding a referral we received from Donte Padgett for a wheeelchairevaluation. From the doctor's note, it sounds like Aly has quadriplegia and has developed back pain due to slouching down. It is not clear if he needs a new power chair or seating for the existing chair. I left a message at the phone number we have on record [phone] and asked that they call the Wheelchair Clinic Line to schedule and also to let us know the preferred supplier we will be workingwith. Mohini Lopez, PT documented in this encounter Plan of Treatment Not on file documented as of this encounter Visit Diagnoses Not on filedocumented in this encounter Care Teams Printing Worker Supervisor Relationship Specialty Start Date End Date Donte Padgett MD PCP - General 07/20/14 documented as of this encounter
--- OUTSIDE RECORDS SUMMARY | 2024-03-04 16:59 | XMS_ITS | Encounter Summary ---
Author Organization [facility] Address [address] [place] [address] Care Team Providers Care Qc Tech Name Role Phone Donte Padgett MD Primary Care Provider [phone] [phone] Reason for Visit * Reason Onset Date Comments Appointment Related 06/12/2015 Encounter Details Date Type Department Care Team (Late st Contact Info) Description 06/12/2015 Telephone [facility] Rehabilitation Therapy - [address] [address] Therapy, Outpatient, Appointment Related Social History Tobacco Use Types Packs/Day Years Used Date Smoking Tobacco: Never Assessed Sex and Gender Information Value Date Recorded Sex Assigned at Not on file Gender Identity Not on file Sexual Orientation Not on file documented as of this encounter Miscellaneous Notes * Telephone Encounter - Brooke Rahman - 06/12/2015 0910 EST A copy of the Occupational Therapy Encounter Note dated 03/14/15 has been faxed to Antonio Bonilla : Community Health Worker,Tobacco Inner Tube Cutter, [facility]. Per Reina Ford OT request. documented in this encounter Plan of Treatment Not on file documented as of this encounter Visit Diagnoses Not on filedocumented in this encounter Care Teams Qc Tech Relationship Specialty Start Date End Date Donte Padgett MD PCP - General 07/20/14 documented as of this encounter
--- OUTSIDE RECORDS SUMMARY | 2024-03-04 16:59 | XMS_ITS | Encounter Summary ---
Author Organization [facility] Address [address] [place] [address] Care Team Providers Care Teacher Tutor Name Role Phone Donte Padgett MD Primary Care Provider [phone] [phone] Encounter Details Date Type Department Care Team (Latest Contact Info) Description 01/25/2015 9:01 EDT - 01/25/2015 23:59 EDT Hospital Encounter [address] [address] Unknown, Provider, Discharge Disposition: Home or Self Care Social History Tobacco Use Types Packs/Day Years Used Date Smoking Tobacco: Never Assessed Sex and Gender Information Value Date Recorded Sex Assigned at Not on file Gender Identity Not on file Sexual Orientation Not on file documented as of this encounter Discharge Disposition Disposition Code Departure Means Destination Home or Self Long-Term documented in this encounter Plan of Treatment Not on file documented as of this encounter Visit Diagnoses Not on filedocumented in this encounter Care Teams Teacher Tutor Relationship Specialty Start Date End Date Donte Padgett MD PCP - General 07/20/14 documented as of this encounter
--- OUTSIDE RECORDS SUMMARY | 2024-03-04 16:59 | XMS_ITS | Encounter Summary ---
Author Organization [facility] Address [facility] [place] [address] Care Team Providers Care Cut Off Saw Operator Name Role Phone Donte Padgett MD Primary Care Provider [phone] [phone] Reason for Visit * Reason Onset Date Comments Results 10/29/2015 Encounter Details Date Type Department Care Team (Late st Contact Info) Description 10/29/2015 Telephone [place] [address] José Miguel Jimenez RN Results Social History Tobacco Use Types Packs/Day Years [...] encounter Miscellaneous Notes * Telephone Encounter - José Miguel Jimenez RN - 10/29/2015 3:19 PM EDT Patient calls for results of recent EGD/Mehama and plan of care. Routing to Dr. Aviles documented in this encounter Plan of Treatment Upcoming Encounters Date Type Department Care Team (Late st Contact Info) Description 03/17/2024 2:00 PM EDT TH Visit (TeleHealth) [place] [address] Yue Darby MD [facility] [place] [address] 04/12/2024 11:30 AM EDT Office [place] [address] Yue Darby MD [facility] [place] [address] 04/28/2024 8:30 AM EDT TH Visit (TeleHealth) [place] [id number] Yue Darby MD [facility] [address] [facility] [place] [address] documented as of this encounter Visit Diagnoses Not on filedocumented in this encounter Care Teams Cut Off Saw Operator Relationship Specialty Start Date End Date Donte Padgett MD [address] [place] [address] [address] [place] [address] PCP - General Family Medicine 08/24/15 documented as of this encounter
--- OUTSIDE RECORDS SUMMARY | 2024-03-04 16:59 | XMS_ITS | Encounter Summary ---
Author Organization [facility] Address [address] [place] [address] Care Team Providers Care Pump Press Operator Name Role Phone Donte Padgett MD Primary Care Provider [phone] [phone] Encounter Details Date Type Department Care Team (Late st Contact Info) Description 11/13/2014 12:16 EDT - 11/13/2014 23:59 EDT Hospital Encounter [address] [address] Donte Padgett MD [address] [place] [address] Discharge Disposition: Home or Self Care Social History Tobacco Use Types Packs/Day Years Used Date Smoking Tobacco: Never Assessed Sex and Gender Information Value Date Recorded Sex Assigned at Not on file Gender Identity Not on file Sexual Orientation Not on file documented as of this encounter Discharge Diagnoses Diagnosis 344.04 QUADRIPLEGIA C5-C7 INCOMPLETE[ICD-9-CM] documented in this encounter Discharge Disposition Disposition Code Departure Means Destination Home or Self [facility] documented in this encounter Plan of Treatment Not on file documented as of this encounter Visit Diagnoses Not on filedocumented in this encounter Care Teams Pump Press Operator Relationship Specialty Start Date End Date Donte Padgett MD PCP - General 07/20/14 documented as of this encounter
--- OUTSIDE RECORDS SUMMARY | 2024-03-04 16:59 | XMS_ITS | Encounter Summary ---
Author Organization [facility] Address [address] [place] [address] Care Team Providers Care Show Host Name Role Phone Donte Padgett MD Primary Care Provider [phone] Reason for Visit * Reason Onset Date Comments Appointment Related 02/13/2015 Encounter Details Date Type Department Care Team (Late st Contact Info) Description 02/13/2015 Telephone [facility] Rehabilitation Therapy - [address] [address] Reina Ford OT Appointment Related Social History Tobacco Use Types Packs/Day Years Used Date Smoking Tobacco: Never Assessed Sex and Gender Information Value Date Recorded Sex Assigned at Not on file Gender Identity Not on file Sexual Orientation Not on file documented as of this encounter Miscellaneous Notes * Telephone Encounter - Brooke Rahman - 02/13/2015 1123 EDT Spoke with patient and scheduled him for a power wheelchair/ ergo seating evaluation with Reina Ford OT and CLAYTON Flores from [facility], for ThursdayMarch 14 @ RTC @ 8:00am. Patient states all of the info from his questionnaire done in October, is the same. documented in this encounter Plan of Treatment Not on file documented as of this encounter Visit Diagnoses Not on filedocumented in this encounter Care Teams Show Host Relationship Specialty Start Date End Date Donte Padgett MD PCP - General 07/20/14 documented as of this encounter
--- OUTSIDE RECORDS SUMMARY | 2024-03-04 16:59 | XMS_ITS | Encounter Summary ---
Author Organization [facility] Address [address] [place] [address] Care Team Providers Care Wool Spotter Name Role Phone Donte Padgett MD Primary Care Provider [phone] [phone] Reason for Visit * Reason Onset Date Comments Other 05/29/2015 Encounter Details Date Type Department Care Team (Late st Contact Info) Description 05/29/2015 Telephone [facility] Rehabilitation Therapy - [address] [address] Therapy, Outpatient, Other Social History Tobacco Use Types Packs/Day Years Used Date Smoking Tobacco: Never Assessed Sex and Gender Information Value Date Recorded Sex Assigned at Not on file Gender Identity Not on file Sexual Orientation Not on file documented as of this encounter Miscellaneous Notes * Telephone Encounter - Brooke Rahman - 05/29/2015 1313 EST Antonio Stokes, Community Health Worker with [facility] requires the patient's Wheelchair Clinic note to get funding for some of the patient's equipment. The patient has been emailed a Release of Medical Information form, with instructions to fill it out and send it back so that we may send the Wheelchair Clinic note to Antonio. documented in this encounter Plan of Treatment Not on file documented as of this encounter Visit Diagnoses Not on filedocumented in this encounter Care Teams Wool Spotter Relationship Specialty Start Date End Date Donte Padgett MD PCP - General 07/20/14 documented as of this encounter
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
--- OUTSIDE RECORDS SUMMARY | 2024-03-04 16:59 | XMS_ITS | Encounter Summary ---
Author Organization [facility] Address [address] [place] [address] Care Team Providers Care Food Demonstrator Name Role Phone Donte Padgett MD Primary Care Provider [phone] Reason for Visit * Reason Onset Date Comments Appointment Related 10/10/2014 Encounter Details Date Type Department Care Team (Late st Contact Info) Description 10/10/2014 Telephone [facility] Rehabilitation Therapy - [address] [id number] Mohini Lopez, PT [address] [place] [address] Appointment Related Social History Tobacco Use Types Packs/Day Years Used Date Smoking Tobacco: Never Assessed Sex and Gender Information Value Date Recorded Sex Assigned at Not on file Gender Identity Not on file Sexual Orientation Not on file documented as of this encounter Miscellaneous Notes * Telephone Encounter - Diamond Escobar - 10/10/2014 0819 EDT [facility] [address] [address] Person providing information? Aly Guardian: Patient is own Guardian Phone number: [phone] 1. Who recommended that you be seen in wheelchair clinic? Donte Padgett 2. What is your diagnosis (reason for needing a wheelchair)? Spinal cord injury, quadriplegic 3. Have you seen your referring physician within the past 6 months for the diagnosis (reason you need a wheelchair)? Not asked 4. Reason for appointment: New chair 5. What type of chair are you currently using? Manual 6. How old is the wheelchair? 4 years 7. If less than 3 years old: What isn't working with the present chair? N/A 8. Do you still fit in this wheelchair? Yes If No: Why not? N/A 9. If being seen for a new wheelchair: what kind do you think you need: Manual 10. Where do you plan to use your wheelchair: All 11. Do you anticipate any problems getting your new wheelchair in, out or around your home? No 12. Is there a ramp to get into your home? Yes 13. Do you have any skin breakdown on your buttocks caused by seating/cushion? No 14. Are you able to walk in your home, if so, include distance and device? No 15. How do you transfer: Pop Over 16. Do you need assistance for your transfers? No 17. Will anyone be with you at time of appt? Yes 18. Approximate Height? 6' 3 19. Approximate Weight? 204 lbs 20. Name of Medical Vendor? [employer] 21. Are you receiving Physical Therapy? No If Yes: Where? N/A 22. Do you have any other requests, comments, questions you would like to add prior to your appt? Needs to sit lower to the ground so he doesn't slouch as much. Is having back problems due to his seating. Was in [place] when he got his chair and was using [place] city[place] [address] and his[place] chair is not working well; chair is breaking and is cracked due to harsher conditions. Diamond Escobar documented in this encounter Plan of Treatment Not on file documented as of this encounter Visit Diagnoses Not on filedocumented in this encounter Care Teams Food Demonstrator Relationship Specialty Start Date End Date Donte Padgett MD PCP - General 07/20/14 documented as of this encounter
--- OUTSIDE RECORDS SUMMARY | 2024-03-04 16:59 | XMS_ITS | Encounter Summary ---
Author Organization [facility] Address [address] [place] [address] Care Team Providers Care Warehouse Helper Name Role Phone Donte Padgett MD Primary Care Provider [phone] Reason for Visit * Reason Onset Date Comments Appointment Related 07/17/2015 Encounter Details Date Type Department Care Team (Late st Contact Info) Description 07/17/2015 Telephone [facility] Rehabilitation Therapy - [address] [address] Therapy, Outpatient, Appointment Related Social History Tobacco Use Types Packs/Day Years Used Date Smoking Tobacco: Never Assessed Sex and Gender Information Value Date Recorded Sex Assigned at Not on file Gender Identity Not on file Sexual Orientation Not on file documented as of this encounter Miscellaneous Notes * Telephone Encounter - Brooke Rahman - 07/17/2015 1436 EST Left a message on patient's answering machine: We would like to schedule his fitting with Reina Ford OT on [address] [facility] at 9:30. I have asked that the patient call back to confirm this appointment. documented in this encounter Plan of Treatment Not on file documented as of this encounter Visit Diagnoses Not on filedocumented in this encounter Care Teams Warehouse Helper Relationship Specialty Start Date End Date Donte Padgett MD PCP - General 07/20/14 documented as of this encounter
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
--- OUTSIDE RECORDS SUMMARY | 2024-03-04 16:59 | XMS_ITS | Encounter Summary ---
Author Organization [facility] Address [address] [place] [address] Care Team Providers Care Road Conductor Name Role Phone Donte Padgett MD Primary Care Provider [phone] Reason for Visit * Reason Onset Date Comments Appointment Related 03/13/2015 Encounter Details Date Type Department Care Team (Late st Contact Info) Description 03/13/2015 Telephone [facility] Rehabilitation Therapy - [address] [address] Reina Ford OT Appointment Related Social History Tobacco Use Types Packs/Day Years Used Date Smoking Tobacco: Never Assessed Sex and Gender Information Value Date Recorded Sex Assigned at Not on file Gender Identity Not on file Sexual Orientation Not on file documented as of this encounter Miscellaneous Notes * Telephone Encounter - Brooke Rahman - 03/13/2015 1141 EDT I called and left a message on the answering machine reminding the patient of their wheelchair clinic appointment, to occur tomorrow @ [facility] with Reina Ford OT documented in this encounter Plan of Treatment Not on file documented as of this encounter Visit Diagnoses Not on filedocumented in this encounter Care Teams Road Conductor Relationship Specialty Start Date End Date Donte Padgett MD PCP - General 07/20/14 documented as of this encounter
--- OUTSIDE RECORDS SUMMARY | 2024-03-04 16:59 | XMS_ITS | Encounter Summary ---
Author Organization [facility] Address [address] [place] [address] Care Team Providers Care Tier In Name Role Phone Donte Padgett MD Primary Care Provider [phone] Encounter Details Date Type Department Care Team (Late st Contact Info) Description 08/29/2015 12:07 EST - 08/29/2015 23:59 EST Hospital Encounter [address] [address] Donte Padgett MD [address] [place] [id number] Discharge Disposition: Home or Self Care Social History Tobacco Use Types Packs/Day Years Used Date Smoking Tobacco: Never Assessed Sex and Gender Information Value Date Recorded Sex Assigned at Not on file Gender Identity Not on file Sexual Orientation Not on file documented as of this encounter Discharge Diagnoses Diagnosis G82.54 Quadriplegia, C5-C7 incomplete-G82.54[ICD-10-CM] documented in this encounter Discharge Disposition Disposition Code Departure Means Destination Home or Self [facility] documented in this encounter Plan of Treatment Not on file documented as of this encounter Visit Diagnoses Not on filedocumented in this encounter Care Teams Tier In Relationship Specialty Start Date End Date Donte Padgett MD PCP - General 07/20/14 documented as of this encounter
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
--- OUTSIDE RECORDS SUMMARY | 2024-03-04 16:59 | XMS_ITS | Encounter Summary ---
Author Organization [facility] Address [address] [place] [address] Care Team Providers Care Clay Transporter Name Role Phone Donte Padgett MD Primary Care Provider [phone] Reason for Visit * Reason Onset Date Comments Appointment Related 11/08/2014 Encounter Details Date Type Department Care Team (Late st Contact Info) Description 11/08/2014 Telephone [facility] Rehabilitation Therapy - [facility] [address], [place] [id number] Mohini Lopez PT [address] [place] [address] Appointment Related Social History Tobacco Use Types Packs/Day Years Used Date Smoking Tobacco: Never Assessed Sex and Gender Information Value Date Recorded Sex Assigned at Not on file Gender Identity Not on file Sexual Orientation Not on file documented as of this encounter Miscellaneous Notes * Telephone Encounter - Diamond Escobar - 11/08/2014 1502 EDT 11/03/14 and 11/08/14 - left message letting Aly know that his wheelchair evaluation on 11/13/14 has phong rescheduled to 11:00 due to Mohini Lopez PT needing to be out of the office. documented in this encounter Plan of Treatment Not on file documented as of this encounter Visit Diagnoses Not on filedocumented in this encounter Care Teams Clay Transporter Relationship Specialty Start Date End Date Donte Padgett MD PCP - General 07/20/14 documented as of this encounter
--- OUTSIDE RECORDS SUMMARY | 2024-03-04 16:59 | XMS_ITS | Encounter Summary ---
[place] [address] Care Team Providers Care Able Bodied Watchman Name Role Phone Donte Padgett MD Primary Care Provider [phone] [phone] Reason for Referral * Diagnostic Test (Routine) - Closed Specialty Diagnoses / Procedures Referred By Contac t Referred To Contact Radiology Diagnoses Chronic abdominal pain Inflammatory bowel disease Procedures MRI Enterography With/WO Contrast MRI Abdomen With Contrast Memo Hilton MD [address] [address] [place] [address] Referral ID Status Reason Start Date Expiration Date V isits Requested Visits Authorized [id number] Closed Specialty Service Requested 08/22/2015 08/21/2016 1 1 Reason for Visit * Diagnostic Test (Routine) - Closed Specialty Diagnoses / Procedures Referred By Contac t Referred To Contact Radiology Diagnoses Chronic abdominal pain Inflammatory bowel disease Procedures MRI Enterography With/WO Contrast MRI Abdomen With Contrast Memo Hilton MD [facility] [address] [place] [address] [place] [address] Referral ID Status Reason Start Date Expiration Date V isits Requested Visits Authorized [id number] Closed Specialty Service Requested 08/22/2015 08/21/2016 1 1 Encounter Details Date Type Department Care Team (Latest Contact Info) Description 08/24/2015 2:14 PM EST - 08/24/2015 11:59 PM EST Hospital [place] [address] Memo Hilton MD [facility] [address] [place] [phone] Chronic abdominal pain; Inflammatory bowel disease Discharge Disposition: Home Social History Tobacco Use Types Packs/Day Years Used Date Smoking Tobacco: Never Assessed Sex and Gender Information Value Date Recorded Sex Assigned at Not on file Gender Identity Not on file Sexual Orientation Not on file documented as of this encounter Medications at Time of Discharge Medication Sig Dispensed Refills Start Date End Date OXYcodone-acetaminophen (PERCOCET) 5-325 mg per tablet 1-2 Tablet(s), PO, Q4H,PRN 01/07/2010 10/11/2015 documented as of this encounter Plan of Treatment Upcoming Encounters Date Type Department Care Team (Late st Contact Info) Description 03/17/2024 2:00 PM EDT TH Visit (TeleHealth) Neurology at [address] Yue Darby MD [facility] [place] [address] 04/12/2024 11:30 AM EDT Office Visit Neurology at [place] [id number] Yue Darby MD [facility] [place] [address] 04/28/2024 8:30 AM EDT TH Visit (TeleHealth) [place] [phone] Yue Darby MD [facility] [place] [address] documented as of this encounter Procedures Procedure Name Priority Date/Time Associated Diagnosis Comments MRI ENTEROGRAPHY WITH/WO CONTRAST Routine 08/24/2015 5:40 PM EST Chronic abdominal pain Inflammatory bowel disease documented in this encounter Results * MRI Enterography With/WO Contrast (08/24/2015 5:40 PM EST) Anatomical Region Laterality Modality Abdomen Magnetic Resonan ce Impressions 08/25/2015 8:21 AM EST IMPRESSION: Normal study. No evidence of Crohn's disease. Narrative 08/25/2015 8:21 AM EST EXAMINATION: MRI ENTEROGRAPHY WITH/WO CONTRAST CLINICAL HISTORY: CHRONIC ABDOMINAL PAIN, INFLAMMATORY BOWEL DISEASE TECHNIQUE: ??MRI of the abdomen and pelvis was performed with images obtained prior to and following intravenous administration of 10ml of Gadavist. ??1ml glucagon was also administered. COMPARISON: None FINDINGS: GI tract: No dilated small or large bowel, bowel wall thickening, or mesenteric inflammation. ??No mucosal hyperenhancement. No evidence of Crohn's disease. The terminal ileum is visualized and is normal. The appendix is normal. No free fluid or focal fluid collection. Liver: Normal. Spleen: Normal. Kidneys/adrenal glands: Normal. Pancreas: Normal. Lymph nodes: No lymphadenopathy. Osseous structures: No marrow signal abnormality. Procedure Note Efraín Carrington MD - 08/25/2015 EXAMINATION: MRI ENTEROGRAPHY WITH/WO CONTRAST CLINICAL HISTORY: CHRONIC ABDOMINAL PAIN, INFLAMMATORY BOWEL DISEASE TECHNIQUE: MRI of the abdomen and pelvis was performed with imagesobtained prior to and following intravenous administration of 10ml of Gadavist.1ml glucagon was also administered. COMPARISON: None FINDINGS: GI tract: No dilated small or large bowel, bowel wall thickening, ormesenteric inflammation. No mucosal hyperenhancement. No evidence of Crohn'sdisease. The terminal ileum is visualized and is normal. The appendix is normal. No free fluid or focal fluid collection. Liver: Normal. Spleen: Normal. Kidneys/adrenal glands: Normal. Pancreas: Normal. Lymph nodes: No lymphadenopathy. Osseous structures: No marrow signal abnormality. IMPRESSION IMPRESSION: Normal study. No evidence of Crohn's disease. Memo Hilton MD [facility] MRI ORDERABLES documented in this encounter Visit Diagnoses Diagnosis Chronic abdominal pain Abdominal pain, unspecified site Inflammatory bowel disease Other and unspecified noninfectious gastroenteritis and colitis documented in this encounter Administered Medications Inactive Administered Medications - up to 3 most recent administrations Medication Order MAR Action Action Date Dose Rate Site gadobutrol (GADAVIST) 1 mMol/mL injection 7 mL 7 mL, Intravenous, ONCE PRN, 1 dose, Starting on Thu08/24/15 at 1818, Until Thu08/24/15 at 1720, once, Routine Given 08/24/2015 5:20 PM EST 7 mLs glucagon (human recombinant) injection 1 mg 1 mg, Intramuscular, PER INSULIN PROTOCOL, Low blood sugar, Starting on Thu08/24/15 at 1643, Until 08/25/15 at 0439 Given 08/24/2015 5:05 PM EST 1 mg documented in this encounter Care Teams Able Bodied Watchman Relationship Specialty Start Date End Date Donte Padgett MD [address] [place] [address] PCP - General Family Medicine 08/24/15 documented as of this encounter
--- OUTSIDE RECORDS SUMMARY | 2024-03-04 16:59 | XMS_ITS | Encounter Summary ---
Author Organization [facility] Address [facility] [place] [address] Care Team Providers Care Associate Store Director Name Role Phone Donte Padgett MD Primary Care Provider [phone] [phone] Encounter Details Date Type Department Care Team (Late st Contact Info) Description 10/18/2015 2:30 PM EDT - 10/18/2015 3:30 PM EDT Surgery [place] [address] Seth Yeh MD [facility] DR [place] [address] COLONOSCOPY, DIAGNOSTIC (WRVU 3.26) Social History Tobacco Use Types Packs/Day Years [...] Sign Reading Time Taken Comments Blood Pressure 136/90 10/18/2015 2:22 PM EDT Pulse 88 10/18/2015 2:22 PM EDT Temperature - - Respiratory Rate 18 10/18/2015 2:22 PM EDT Oxygen Saturation 100% 10/18/2015 2:22 PM EDT Inhaled Oxygen Concentration - - Weight 83.5 kg (184 lb) 10/18/2015 2:22 PM EDT Height 190.5 cm (6' 3) 10/18/2015 2:22 PM EDT Body Mass Index 23 10/18/2015 2:22 PM EDT documented in this encounter Discharge Instructions * Discharge Instructions* Brooke Garcia RN - 10/18/2015 3:33 PM EDT Please call [phone] before 8pm with problems, questions or concerns, after 5pm call the Hospital at [phone] and ask to speak to the Battery [employer] home economics teacher and the treatment plant operator will contact that person for you. Discharge instructions reviewed with patient who expresses understanding. You may have received medications before and/or during your procedure which effects your judgement and reaction time. Do not drive, operate machinery, drink alcoholic beverages or make important decisions for 24 hours. Be careful on stairs as you may be unsteady on your feet. You may eat a regular diet as tolerated. Do not smoke if you are alone. IV site: Slight redness or tenderness is normal, you can use a warm compress if you would like. If tenderness and/or redness increase or if foul drainage occurs, please contact your Doctor. * Attachments The following attachments cannot be sent through Care Everywhere. * COLONOSCOPY : POST-OP (IRISH) documented in this encounter Medications at Time of Discharge Medication Sig Dispensed Refills Start Date End Date desipramine (NOPRAMIN) 10 mg TabletIndications:Chr onic abdominal pain Take 10 mg by mouth 3 times daily. 05/22/2016 desipramine (NOPRAMIN) 10 mg TabletIndications:Chr onic abdominal pain Take 4 tablets by mouth nightly. In 1 week take 4 tabs daily for 1 week, then 5 tabs 1 week, 6 tabs 1 week, 7 tabs thereafter 240 tablet 2 10/11/2015 05/22/2016 documented as of this encounter Plan of Treatment Upcoming Encounters Date Type Department Care Team (Late st Contact Info) Description 03/17/2024 2:00 PM EDT TH Visit (TeleHealth) [place] [address] Yue Darby MD [facility] HOSPICE AND [place] [address] 04/12/2024 11:30 AM EDT Office [place] [address] Yue Darby MD [facility] HOSPICE AND [place] [address] 04/28/2024 8:30 AM EDT TH Visit (TeleHealth) [place] [phone] Yue Darby MD [facility] AND [place] [address] documented as of this encounter Procedures Procedure Name Priority Date/Time Associated Diagnosis Comments SURGICAL PATHOLOGY REPORT Routine 10/18/2015 3:32 PM EDT SPECIMEN TO PATHOLOGY Routine 10/18/2015 3:32 PM EDT SPECIMEN TO PATHOLOGY Routine 10/18/2015 3:32 PM EDT EGD WITH BIOPSY (WRVU 2.39) 10/18/2015 2:43 PM EDT Worsening anemia - please obtain duodenal biopsies COLONOSCOPY, DIAGNOSTIC (WRVU 3.26) 10/18/2015 2:43 PM EDT Worsening anemia - please obtain duodenal biopsies UPPER GI ENDOSCOPY Routine 10/18/2015 2: 27 PM EDT COLONOSCOPY Routine 10/18/2015 2:26 PM EDT documented in this encounter Results * Surgical Pathology Report (10/18/2015 3:32 PM EDT) Final Diagnosis [id number] ? Location: 4T; 06; A The signing pathologist has (i) examined the relevant preparation(s) for the specimen(s) and (ii) rendered or confirmed the diagnosis(es). . ?Surgical Pathology DIAGNOSIS A - Irregula Z line, ?? biopsy: - Gastric cardia-type mucosa with chronic inflammation, negative for intestinal metaplasia. - Esophageal squamous mucosa negative for diagnostic abnormality. B - Duodenum, ??biopsy: - Duodenal mucosa, negative for diagnostic abnormality. 10/19/15 AAY 10/22/15 Verified by: ? Yosef Morton MD ?Pathologist ?(Electronic Signature) The attending pathologist whose signature appears on this report has reviewed all diagnostic slides and has edited the gross and/or microscopic portion of the report in rendering the final pathologic diagnosis. CLINICAL INFORMATION Specimen Submitted: A - 45 cm from incisors, irregular z line eval for IM B - Duodeneal bx eval for celiac disease Clinical History: Iron deficiency anemia Clinical Diagnosis: Same SPECIMEN PROCESSING A - Labeled/Fixativ e: 45 cm from incisors, irregular Z line, formalin. Quantity/Size: Two, averaging 0.2 cm. Tissue Description: ??Soft, ziegler tissues . Sections/Proces sing: (T1) B - Labeled/Fixativ e: Duodenal BX, formalin. Quantity/Size: Multiple, ranging from 0.2-0.4 cm. Tissue Description: ??Soft, pink tissues. Sections/Proces sing: (T2) ??sns 10/22/2015 2:50 PM EDT [facility] GI Biopsy 10/18/2015 3:32 PM EDT 10/18/2015 3:32 PM EDT GI Biopsy 10/18/2015 3:32 PM EDT 10/18/2015 3:32 PM EDT Seth Yeh MD PATHOLOGY/CYTOLOGY O RDERABLES Performing Organization Address City/State/[facility] Co de Phone Number [facility] [place] [address] * Specimen to Pathology (surgical or derm) (10/18/2015 3:32 PM EDT) AP Specimen 10/18/2015 3:32 PM EDT 10/18/2015 3:32 PM EDT Narrative [facility] - 10/18/2015 3:32 PM EDT Specimen requisition ordered. ??Separate Pathology report to follow Seth Yeh MD PATHOLOGY/CYTOLOGY O KISHOR Performing Organization Address [facility] [place] [address] * Specimen to Pathology (surgical or derm) (10/18/2015 3:32 PM EDT) AP Specimen 10/18/2015 3:32 PM EDT 10/18/2015 3:32 PM EDT Narrative [facility] - 10/18/2015 3:32 PM EDT Specimen requisition ordered. ??Separate Pathology report to follow Seth Yeh MD PATHOLOGY/CYTOLOGY Tez IVERSON Performing Organization Address [facility] [place] [address] * UPPER GI ENDOSCOPY (10/18/2015 2:27 PM EDT) UPPER GI ENDOSCOPY [facility] Endoscopy Patient Name: Aly De La Torre ? Procedure Date: 10/18/2015 2:27 PM ? N: [id number] ? Date of : 1990 ? Age: 25 ? Order #: [id number] ? Procedure: ? Upper GI endoscopy Indications: ? Iron deficiency anemia Patient Profile: ? This is a 25 year old male. Refer to ? note in patient chart for ? documentation of history and physical. Providers: ? Melissa Quintero, RN, ? July Regalado, Supplier Quality Engineer Referring MD: ?Donte Padgett MD Medicines: ? Monitored Anesthesia Care Complications: ? No immediate complications. Procedure: ? Pre-Anesthesia Assessment: ? - Prior to the procedure, a History ? and Physical was performed, and ? patient medications, allergies and ? sensitivities were reviewed. The ? patient's tolerance of previous ? anesthesia was reviewed. ? - The risks and benefits of the ? procedure and the sedation options ? and risks were discussed with the ? patient. All questions were answered ? and informed consent was obtained. ? - Patient identification and proposed ? procedure were verified prior to the ? procedure by the physician, the nurse ? and the anesthesiologist. The ? procedure was verified in the ? pre-procedure area in the procedure ? room in the endoscopy suite. ? - ASA Grade Assessment: III - A ? patient with severe systemic disease. ? - Monitored anesthesia care under the ? supervision of a OFFBEARER SEWER PIPE was determined ? to be medically necessary for this ? procedure based on severe comorbidity ? (greater than ASA Grade II). ? - The heart rate, respiratory rate, ? oxygen saturations, blood pressure, ? adequacy of pulmonary ventilation, ? and response to care were monitored ? throughout the procedure. ? The procedure, indications, benefits, ? risks and alternatives were explained ? to the patient. Specifically ? discussed were potential ? complications including, but not ? limited to, bleeding, perforation, ? infection, missing a cancer, and ? adverse medication reactions. The ? Endoscope was introduced through the ? mouth, and advanced to the second ? part of duodenum. The patient ? tolerated the procedure well. The ? upper GI endoscopy was accomplished ? with ease. The patient tolerated the ? procedure well. ? Findings: ? The oropharynx was normal. ? The examined esophagus was normal. There was distal ? LA Grade A esophagitis. ? The Z-line was irregular and was found 45 cm from the ? incisors. This was biopsied for intestinal metaplasia. ? The entire examined stomach was normal. ? The examined duodenum was normal. This was biopsied ? to evaluate for celiac disease. ? Impression: ?-LA grade A distal esophagitis, ? irregular Z line. This does not ? explain your iron deficiency anemia. Recommendation: ?-Omeprazole 20 mg every morning half ? hour before breakfast (antacid) ? -Proceed with colonoscopy ? Seth Yeh, 10/18/2015 3:33 PM Number of Addenda: 0 Note Initiated On: 10/18/2015 2:27 PM PROVATION 10/18/2015 2:27 PM EDT Donte Padgett MD GENERAL SURGICAL ORDERABLES PROVATION * COLONOSCOPY (10/18/2015 2:26 PM EDT) COLONOSCOPY [facility] Endoscopy ___ Patient Name: Aly De La Torre ? Procedure Date: 10/18/2015 2:26 PM ? N: [id number] ? Date of : 1990 ? Age: 25 ? Order #: [id number] ? ___ Procedure: ? Colonoscopy Indications: ? Iron deficiency anemia Providers: ? Seth Yeh, Melissa Cruz, RN, ? July Regalado, Supplier Quality Engineer Referring MD: ?Donte Padgett MD Medicines: ? Monitored Anesthesia Care Complications: ? Vasovagal reaction ___ Procedure: ? Pre-Anesthesia Assessment: ? - Prior to the procedure, a History ? and Physical was performed, and ? patient medications, allergies and ? sensitivities were reviewed. The ? patient's tolerance of previous ? anesthesia was reviewed. ? - The risks and benefits of the ? procedure and the sedation options ? and risks were discussed with the ? patient. All questions were answered ? and informed consent was obtained. ? - Patient identification and proposed ? procedure were verified prior to the ? procedure by the physician, the nurse ? and the anesthesiologist. The ? procedure was verified in the ? pre-procedure area in the procedure ? room in the endoscopy suite. ? - ASA Grade Assessment: III - A ? patient with severe systemic disease. ? - Monitored anesthesia care under the ? supervision of a OFFBEARER SEWER PIPE was determined ? to be medically necessary for this ? procedure based on severe comorbidity ? (greater than ASA Grade II). ? - The heart rate, respiratory rate, ? oxygen saturations, blood pressure, ? adequacy of pulmonary ventilation, ? and response to care were monitored ? throughout the procedure. ? The procedure, indications, benefits, ? risks and alternatives were explained ? to the patient. Specifically ? discussed were potential ? complications including, but not ? limited to, bleeding, perforation, ? infection, missing a cancer, and ? adverse medication reactions. The ? patient was placed in the left ? lateral decubitus position, and a ? digital rectal exam was performed. ? The Colonoscope was inserted in the ? anus and under direct visualization, ? advanced to the terminal ileum. ? Careful inspection was made as the ? colonoscope was withdrawn. The ? colonoscopy was performed without ? difficulty. The patient tolerated the ? procedure well. The quality of the ? bowel preparation was adequate to ? identify polyps. ? Findings: ? The entire examined colon appeared normal. ? The terminal ileum appeared normal. ? Rectal exam with poor rectal tone, anal prolopse ? noted. ? Impression: ?- The entire examined colon is normal. Recommendation: ?-Would recommend video caspule study ? to assess small bowel pathology for ? complete work up of iron deficiency ? anemia ? -Follow up with Dr. Aviles in clinic ? -Recommend iron supplementation as ? needed ? -Await upper endoscopy biopsy results ? Seth Yeh, 10/18/2015 3:36 PM Number of Addenda: 0 Note Initiated On: 10/18/2015 2:26 PM PROVATION 10/18/2015 2:26 PM EDT Donte Padgett MD GENERAL SURGICAL ORDERABLES PROVATION documented in this encounter Visit Diagnoses Not on filedocumented in this encounter Administered Medications Inactive Administered Medications - up to 3 most recent administrations Medication Order MAR Action Action Date Dose Rate Site lactated ringers infusion 100 mL/hr, Intravenous, CONTINUOUS, Starting on Belen 10/18/15 at 1430, Until Belen 10/18/15 at 1607, Endoscopy (Day of Procedure) New Bag 10/18/2015 2:36 PM EDT 100 mL/hr 100 mL/hr documented in this encounter Active and Recently Administered Medications Times are shown in EDT. Continuous Medication Order 10/16/2015 10/17/2015 10/18/2015 lactated ringers infusion (CANCELED) 100 mL/hr, Intravenous, CONTINUOUS, Starting on Belen 10/18/15 at 1430, Until Belen 10/18/15 at 1607, Endoscopy (Day of Procedure) 1436 (New Bag - Prov ider: Mariana Araya RN)1530 (Anesthesia Volume Adjustment - Provider: Stephen Bennett CRNA) documented in this encounter Care Teams Associate Store Director Relationship Specialty Start Date End Date Donte Padgett MD [address] [place] [address] PCP - General Family Medicine 08/24/15 documented as of this encounter
--- OUTSIDE RECORDS SUMMARY | 2024-03-04 16:59 | XMS_ITS | Encounter Summary ---
Author Organization [facility] Address [address] [place] [address] Care Team Providers Care Chair Car Attendant Name Role Phone Donte Padgett MD Primary Care Provider [phone] [phone] Encounter Details Date Type Department Care Team (Late st Contact Info) Description 03/14/2015 13:07 EDT - 03/14/2015 23:59 EDT Hospital Encounter [address] [address] Donte Padgett MD [address] [place] [address] Discharge Disposition: Home or Self Care Social [...] Code Departure Means Destination Home or Self Custodial documented in this encounter Plan of Treatment Not on file documented as of this encounter Visit Diagnoses Not on filedocumented in this encounter Care Teams Chair Car Attendant Relationship Specialty Start Date End Date Donte Padgett MD PCP - General 07/20/14 documented as of this encounter
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
--- OUTSIDE RECORDS SUMMARY | 2024-03-04 16:59 | XMS_ITS | Encounter Summary ---
Author Organization [facility] Address [address] [place] [address] Care Team Providers Care Reverser Name Role Phone Donte Padgett MD Primary Care Provider [phone] Reason for Visit * Reason Onset Date Comments Appointment Related 07/19/2015 Encounter Details Date Type Department Care Team (Late st Contact Info) Description 07/19/2015 Telephone [facility] Rehabilitation Therapy - [address] [address] Therapy, Outpatient, Appointment Related Social History Tobacco Use Types Packs/Day Years Used Date Smoking Tobacco: Never Assessed Sex and Gender Information Value Date Recorded Sex Assigned at Not on file Gender Identity Not on file Sexual Orientation Not on file documented as of this encounter Miscellaneous Notes * Telephone Encounter - Brooke Rahman - 07/19/2015 1050 EST Patient has confirmed that 08/29/15 @ 9:30 will work for his Wheelchair Clinic fitting appointment. Patient advised that I would be mailing out a confirmation letter will all pertinent details. documented in this encounter Plan of Treatment Not on file documented as of this encounter Visit Diagnoses Not on filedocumented in this encounter Care Teams Reverser Relationship Specialty Start Date End Date Donte Padgett MD PCP - General 07/20/14 documented as of this encounter
--- OUTSIDE RECORDS SUMMARY | 2024-03-04 16:59 | XMS_ITS | Encounter Summary ---
Author Organization [facility] Address [address] [place] [address] Care Team Providers Care Recycling Director Name Role Phone Donte Padgett MD Primary Care Provider [phone] Encounter Details Date Type Department Care Team (Latest Contact Info) Description 06/12/2015 15:05 EST - 06/12/2015 23:59 [facility] Encounter [address] [address] Unknown, Provider, Discharge Disposition: Home or Self Care Social History Tobacco Use Types Packs/Day Years Used Date Smoking Tobacco: Never Assessed Sex and Gender Information Value Date Recorded Sex Assigned at Not on file Gender Identity Not on file Sexual Orientation Not on file documented as of this encounter Discharge Disposition Disposition Code Departure Means Destination Home or Self Assisted documented in this encounter Plan of Treatment Not on file documented as of this encounter Visit Diagnoses Not on filedocumented in this encounter Care Teams Recycling Director Relationship Specialty Start Date End Date Donte Padgett MD PCP - General 07/20/14 documented as of this encounter
--- OUTSIDE RECORDS SUMMARY | 2024-03-04 16:59 | XMS_ITS | Encounter Summary ---
Author Organization [facility] Address [address] [place] [address] Care Team Providers Care Spindle Repairer Name Role Phone Donte Padgett MD Primary Care Provider [phone] Encounter Details Date Type Department Care Team (Late st Contact Info) Description 02/01/2015 Documentation Visit [facility] Rehabilitation Therapy - Medical Office Building [address] [place] [address] Reina Ford OT Social History Tobacco Use Types Packs/Day Years Used Date Smoking Tobacco: Never Assessed Sex and Gender Information Value Date Recorded Sex Assigned at Not on file Gender Identity Not on file Sexual Orientation Not on file documented as of this encounter Progress Notes * Reina Ford OT - 02/01/2015 4356 EDT REHABILITATION THERAPIES [facility] REHABILITATION THERAPY - MEDICAL OFFICE BUILDING [address] [place] [address] Occupational Therapy Contact Note Message left on phone #[phone] 1 week ago to follow up with patient on satisfaction with demo wheelchair. He did not return the call. Today I contacted [facility] who was providing the demo.They have NOT yet provided the demo as pt has not returned their call to set up a time. Horace Juarez [facility] was going to call again today and keep me updated. Reina Ford OT 02/01/2015 11:45 documented in this encounter Plan of Treatment Not on file documented as of this encounter Visit Diagnoses Not on filedocumented in this encounter Care Teams Spindle Repairer Relationship Specialty Start Date End Date Donte Padgett MD PCP - General 07/20/14 documented as of this encounter
--- OUTSIDE RECORDS SUMMARY | 2024-03-04 16:59 | XMS_ITS | Encounter Summary ---
Author Organization [facility] Address [facility] [place] [address] Care Team Providers Care Feed And Farm Management Adviser Name Role Phone Donte Padgett MD Primary Care Provider [phone] [phone] Encounter Details Date Type Department Care Team (Late st Contact Info) Description 12/11/2015 7:30 AM EDT - 12/11/2015 8:00 AM EDT [place] [address] Lance Pandya MD [facility] [place] [address] VIDEO CAPSULE ENDOSCOPY (WRVU 2.24) Social History Tobacco Use Types Packs/Day Years [...] PM EDT TH Visit (TeleHealth) [place] [address] Yue Darby MD [facility] DR HOSPICE [place] [address] 04/12/2024 11:30 AM EDT Office Visit Neurology [place] [phone] Yue Darby MD [facility] HOSPICE [place] [address] 04/28/2024 8:30 AM EDT TH Visit (TeleHealth) [place] [address] Yue Darby MD [facility] DR HOSPICE [place] [address] documented as of this encounter Procedures Procedure Name Priority Date/Time Associated Diagnosis Comments VIDEO CAPSULE ENDOSCOPY Routine 12/11/2015 6:11 PM EDT VIDEO CAPSULE ENDOSCOPY (WRVU 2.24) 12/11/2015 8:00 AM EDT Iron deficiency anemia, unspecified iron deficiency anemia type documented in this encounter Results * VIDEO CAPSULE ENDOSCOPY (12/11/2015 6:11 PM EDT) VIDEO CAPSULE ENDOSCOPY [facility] Endoscopy Patient Name: Aly De La Torre ? Procedure Date: 12/11/2015 6:11 PM ? Date of : 1990 ? Age: 25 ? Order #: [id number] ? Procedure: ? Video capsule endoscopy Indications: ? Anemia Patient Profile: ? This is a 25 year old male with ? 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 Normal Colonoscopy and EGD ? (October 2015). Providers: ? Socorro Juarez MD: ?Donte Padgett MD, Pradeep ? MD Stefan Medicines: ? None Complications: ? No immediate complications. Procedure: ? Pre-Anesthesia Assessment: ? - Prior to the procedure, a brief ? History was performed and patient ? medications and allergies were ? reviewed. The patient is competent. ? The risks and benefits of the ? procedure were discussed with the ? patient, specifically retained ? capsule or obstruction requiring ? surgery for retrieval. All questions ? were answered and informed consent ? was obtained. Patient identification ? and proposed procedure were verified ? by the physician in the pre-procedure ? area. Mental Status Examination: ? normal. Prophylactic Antibiotics: The ? patient does not require prophylactic ? antibiotics. Prior Anticoagulants: ? The patient has taken no previous ? anticoagulant or antiplatelet agents. ? After reviewing the risks and ? benefits, the patient was deemed in ? satisfactory condition to undergo the ? procedure. The anesthesia plan was to ? use no sedation or anesthesia. ? The Sensor Array was applied to the ? patient's abdomen with adhesive pads ? and connected to the Data Recorder ? around the waist. The Data Recorder ? was checked to ensure green light was ? flashing. The patient was then ? instructed to ingest the M2A capsule ? and provided a glass of water. This ? was accomplished without difficulty. ? The patient was then given ? instructions for eating and drinking ? and was instructed to periodically ? monitor the Data Recorder throughout ? the day to insure proper ? transmission. Approximately eight ? hours later the patient returned for ? removal of the Sensor Array. ? The video capsule endoscopy was ? accomplished without difficulty. The ? patient tolerated the procedure well. ? Findings: ? Images of the esophagus, stomach and small bowel were ? obtained from the swallowed capsule and reviewed. ? On review of the recorded study, it was determined ? that the study lasted 8-hours 0-minutes 0-seconds ? (total recording time). The capsule enteroscope ? entered the cecum prior to the end of the recording. ? The first gastric image was captured at 0-hours ? 0-minutes and 44-seconds. ? The first duodenal image was captured at 0-hours ? 8-minutes and 10-seconds. ? There was no evidence of significant pathology in the ? small bowel (entire small bowel). ? The first cecal image was captured at 4-hours ? 45-minutes and 38-seconds for a total small bowel ? imaging time of 4-hours 37-minutes. ? Impression: ?- Normal small bowel. ? - The complete results of this study ? (for the same date as above) are ? available in the video capsule ? equipment database, and these results ? were personally reviewed by me. Recommendation: ?- Return to your PCP and the GI ? clinic for further workup as ? indicated. ? - Consider Celiac disease serologies. ? Attending Participation: ? I personally performed the entire procedure. ? _ Lance Pandya 12/11/2015 6:38:10 PM Number of Addenda: 0 Note Initiated On: 12/11/2015 6:11 PM PROVATION 12/11/2015 6:11 PM EDT Donte Padgett MD GENERAL SURGICAL ORDERABLES PROVATION documented in this encounter Visit Diagnoses Diagnosis Iron deficiency anemia, unspecified iron deficiency anemia type documented in this encounter Care Teams Feed And Farm Management Adviser Relationship Specialty Start Date End Date Donte Padgett MD [address] [place] [address] PCP - General Family Medicine 08/24/15 documented as of this encounter
--- OUTSIDE RECORDS SUMMARY | 2024-03-04 16:59 | XMS_ITS | Encounter Summary ---
Author Organization [facility] Address [facility] [place] [address] Care Team Providers Care Provider Network Manager Name Role Phone Donte Padgett MD Primary Care Provider [phone] Reason for Referral * Surgical (Routine) - Closed Specialty Diagnoses / Procedures Referred By Contac t Referred To Contact Gastroenterology Diagnoses Iron deficiency anemia, unspecified iron deficiency anemia type Procedures VIDEO CAPSULE ENDOSCOPY Pradeep Aviles MD [facility] [place] [address] [facility] [address] Referral ID Status Reason Start Date Expiration Date V isits Requested Visits Authorized [id number] Closed Specialty Service Requested 10/30/2015 10/29/2016 1 1 Encounter Details Date Type Department Care Team (Late st Contact Info) Description 10/30/2015 Orders [place] [address] Pradeep Aviles MD [facility] [place] [address] Iron deficiency anemia, unspecified iron deficiency anemia type Social History Tobacco Use Types Packs/Day [...] PM EDT TH Visit (TeleHealth) [place] [address] Yue Darby MD [facility] DR HOSPICE [place] [address] 04/12/2024 11:30 AM EDT [place] [address] Yue Darby MD [facility] HOSPICE [place] [address] 04/28/2024 8:30 AM EDT TH Visit (TeleHealth) [place] [address] Yue Darby MD [facility] HOSPICE [place] [address] Scheduled Orders Name Type Priority Associated Diagnoses Orde r Schedule VIDEO CAPSULE ENDOSCOPY Procedures Routine Iron deficiency anemia, unspecified iron deficiency anemia type Ordered: 10/30/2015 documented as of this encounter Visit Diagnoses Diagnosis Iron deficiency anemia, unspecified iron deficiency anemia type documented in this encounter Care Teams Provider Network Manager Relationship Specialty Start Date End Date Donte Padgett MD [address] [facility] [address] [place] [address] PCP - General Family Medicine 08/24/15 documented as of this encounter
--- OUTSIDE RECORDS SUMMARY | 2024-03-04 16:59 | XMS_ITS | Encounter Summary ---
Author Organization [facility] [place] [address] Care Team Providers Care Ditching Machine Operating Engineer Name Role Phone Donte Padgett MD Primary Care Provider [phone] [phone] Encounter Details Date Type Department Care Team (Late st Contact Info) Description 12/31/2009 [place] [address] Nereyda Bansal MD [address] [place] [address] Social History Tobacco Use Types Packs/Day Years [...] PM EDT TH Visit (TeleHealth) [place] [address] Yue Darby MD [facility] HOSPICE AND [place] [address] 04/12/2024 11:30 AM EDT [place] [address] Yue Darby MD [facility] HOSPICE AND [place] [address] 04/28/2024 8:30 AM EDT TH Visit (TeleHealth) [place] [address] Yue Darby MD [facility] DR HOSPICE [place] [address] documented as of this encounter Procedures Procedure Name Priority Date/Time Associated Diagnosis Comments XR KNEE AP LAT AXIAL PATELLA RIGHT Routine 12/31/2009 10:21 AM EDT documented in this encounter Results * XR Knee 3 Views Right (12/31/2009 10:21 AM EDT) Anatomical Region Laterality Modality Knee Right Radiographic Alcira ging 12/31/2009 10:2 1 AM EDT Narrative 01/03/2010 9:22 AM EDT External Results Ubaldo Alexander Final Report EXAMINATION: ??[facility] 5602 - KNEE 3 VIEWS RIGHT ? [id number] ??- RIGHT DIAGNOSIS: ?X-RAY JOINT PAIN-LOWER LEG REASON: ? 719.46 RESULT: ? Right knee. IMPRESSION: ? Small osteochondroma arising from the medial femoral condyle noted and does not appear to be of any clinical relevance. ??Bones are anatomically aligned. ??Joint spaces are normal. INTERPRETING PHYSICIAN: ??EFRAÍN KHAN M.D. ? TRANSCRIBED BY/DATE: ?? PM ??on Dec 31 2009 12:35P ELECTRONICALLY AUTHORIZED BY: ?? EFRAÍN KHAN M.D. ? Lopez ??1 2009 ??9:22A Procedure Note Efraín Khan MD - 02/22/2017 External Results Ubaldo Alexander Final Report EXAMINATION: [facility] 5602 - KNEE 3 VIEWS RIGHT [id number] - RIGHT DIAGNOSIS: X-RAY JOINT PAIN-LOWER LEG REASON: 719.46 RESULT: Right knee. IMPRESSION: Small osteochondroma arising from the medial femoral condyle noted and does not appear to be of any clinical relevance.Bones are anatomically aligned. Joint spaces are normal. INTERPRETING PHYSICIAN: EFRAÍN KHAN M.D. TRANSCRIBED BY/DATE: PM on Dec 31 2009 12:35P ELECTRONICALLY AUTHORIZED BY: EFRAÍN KHAN M.D. Jan 03 2010 9:22A Nereyda Bansal MD IMG DX ORDERABLES documented in this encounter Visit Diagnoses Not on filedocumented in this encounter Care Teams Ditching Machine Operating Engineer Relationship Specialty Start Date End Date Donte Padgett MD [address] [place] [address] [address] [facility] 1 [place] [address] PCP - General Family Medicine 08/24/15 documented as of this encounter
--- OUTSIDE RECORDS SUMMARY | 2024-03-04 16:59 | XMS_ITS | Encounter Summary ---
Author Organization [facility] Address [facility] [place] [address] Care Team Providers Care Machine Wood Sander Name Role Phone Juanpablo Medina MD Primary Care Provider [phone] Encounter Details Date Type Department Care Team (Late st Contact Info) Description 08/01/2015 Ancillary Procedure [place] [address] Donte Padgett MD [address] [place] [address] [address] [place], [place] [address] Social History Tobacco Use Types Packs/Day Years [...] PM EDT TH Visit (TeleHealth) [place] [address] Yue Darby MD [facility] HOSPICE AND [place] [address] 04/12/2024 11:30 AM EDT [place] [address] Yue Darby MD [facility] HOSPICE AND [place] [address] 04/28/2024 8:30 AM EDT TH Visit (TeleHealth) [place] [address] Yue Darby MD [facility] DR HOSPICE AND [place] [address] documented as of this encounter Procedures Procedure Name Priority Date/Time Associated Diagnosis Comments FILM LIBRARY STORAGE ONLY DX HIP Routine 08/01/2015 12:00 AM EST documented in this encounter Results * Film Library- Storage Only DX Hip (08/01/2015 12:00 AM EST) Narrative [facility] - 03/06/2023 1:35 PM EDT This exam is auto-finalizing. It's purpose is for storage only. Donte Padgett MD IMG FILM LIBRARY ORDERABLES Performing Organization Address City/State/[facility] Co de Phone Number [place], [place] documented in this encounter Visit Diagnoses Not on filedocumented in this encounter Care Teams Machine Wood Sander Relationship Specialty Start Date End Date Juanpablo Medina MD [address] [place] [address] PCP - General 10/02/10 08/23/15 documented as of this encounter
--- OUTSIDE RECORDS SUMMARY | 2024-03-04 16:59 | XMS_ITS | Encounter Summary ---
Author Organization [facility] Address [facility] [place] [address] Care Team Providers Care Ergonomics Technician Name Role Phone Donte Padgett MD Primary Care Provider +1 [phone] Encounter Details Date Type Department Care Team (Latest Contact Info) Description 10/11/2015 12:05 PM EDT - 10/11/2015 11:59 PM EDT Hospital Encounter XRay at [address] [place] [address] Juan Diego Lange MD [facility] GASTROENTER[place] [address] Chronic abdominal pain Discharge Disposition: Home Social History Tobacco [...] Upcoming Encounters Date Type Department Care Team ( Contact Info) Description 03/17/2024 2:00 PM EDT TH Visit (TeleHealth) [place] [address] Yue Darby MD [facility] HOSPICE AND P[place]IATIVE [place] [address] 04/12/2024 11:30 AM EDT [place] [address] Yue Darby MD [facility] HOSPICE AND [place] [address] 04/28/2024 8:30 AM EDT TH Visit (TeleHealth) [place] [address] Yue Darby MD [facility] HOSPICE AND [place]AT[place] [address] documented as of this encounter Procedures Procedure Name Priority Date/Time Associated Diagnosis Comments XR ABDOMEN 1 VIEW Routine 10/11/2015 12: 19 PM EDT Chronic abdominal pain documented in this encounter Results * XR Abdomen 1 View (GENERIC) (10/11/2015 12:19 PM EDT) Anatomical Region Laterality Modality Abdomen N/A Digital Radiogra phy Impressions 10/11/2015 1:33 PM EDT IMPRESSION: No acute intra-abdominal process. Small moderate amount of stool scattered throughout the colon as detailed above. Narrative 10/11/2015 1:33 PM EDT EXAMINATION: XR ABDOMEN ONE VIEW CLINICAL HISTORY: Assess for constipation TECHNIQUE: Supine abdominal radiograph COMPARISON: MR enterography on 08/24/2015 FINDINGS: Limited views of the lung bases are clear and the heart is normal in size. Supine positioning limits evaluation for intraperitoneal free air. No large volume intraperitoneal free air, pneumatosis, or portal venous gas is present. The bowel is not dilated. A small to moderate amount of gas and stool scattered throughout the colon predominantly in the descending and sigmoid. Gas is present in the rectum. No organomegaly or large soft tissue density masses are present within the abdomen or pelvis. No abnormal soft tissue calcification or radiopaque foreign bodies are present. No suspicious osseous lesions are present. Procedure Note Ramakrishna Vieyra MD - 10/11/2015 EXAMINATION: XR ABDOMEN ONE VIEW CLINICAL HISTORY: Assess for constipation TECHNIQUE: Supine abdominal radiograph COMPARISON: MR enterography on 08/24/2015 FINDINGS: Limited views of the lung bases are clear and the heart is normal insize. Supine positioning limits evaluation for intraperitoneal free air. Nolarge volume intraperitoneal free air, pneumatosis, or portal venous gas ispresent. The bowel is not dilated. A small to moderate amount of gas and stoolscattered throughout the colon predominantly in the descending and sigmoid. Gas ispresent in the rectum. No organomegaly or large soft tissue density masses arepresent within the abdomen or pelvis. No abnormal soft tissue calcification or radiopaque foreign bodies are present. No suspicious osseous lesions are present. IMPRESSION IMPRESSION: No acute intra-abdominal process. Small moderate amount of stoolscattered throughout the colon as detailed above. Juan Diego Lange MD IMG DX ORDERABLES documented in this encounter Visit Diagnoses Diagnosis Chronic abdominal pain Abdominal pain, unspecified site documented in this encounter Care Teams Ergonomics Technician Relationship Specialty Start Date End Date Donte Padgett MD [address] [place] [address] PCP - General Family Medicine 08/24/15 documented as of this encounter
--- OUTSIDE RECORDS SUMMARY | 2024-03-04 16:59 | XMS_ITS | Encounter Summary ---
Author Organization [facility] Address [facility] [place] [address] Care Team Providers Care Performance Improvement Manager Name Role Phone Donte Padgett MD Primary Care Provider [phone] [phone] Encounter Details Date Type Department Care Team (Late st Contact Info) Description 09/02/2015 Ancillary Procedure [place] [address] Yue Darby MD [facility] HOSPICE AND [place] [address] Social History Tobacco Use Types Packs/Day Years [...] PM EDT TH Visit (TeleHealth) [place] [address] Yue Darby MD [facility] HOSPICE [place] [address] 04/12/2024 11:30 AM EDT Office [place] [address] Yue Darby MD [facility] HOSPICE [place] [address] 04/28/2024 8:30 AM EDT TH Visit (TeleHealth) [place] [address] Yue Darby MD [facility] DR HOSPICE [place] [address] documented as of this encounter Procedures Procedure Name Priority Date/Time Associated Diagnosis Comments FILM LIBRARY STORAGE ONLY CT HEAD AND SPINE Routine 09/02/2015 12:00 AM EST documented in this encounter Results * Film Library- Storage Only CT Head And Spine (09/02/2015 12:00 AM EST) Narrative [facility] - 06/11/2021 1:16 PM EST This exam is auto-finalizing. It's purpose is for storage only. Yue Darby MD IMG FILM LIBRARY ORD ERABLES Performing Organization Address City/State/[facility] Co de Phone Number [place], [place] documented in this encounter Visit Diagnoses Not on filedocumented in this encounter Care Teams Performance Improvement Manager Relationship Specialty Start Date End Date Donte Padgtet MD [address] [place] [address] PCP - General Family Medicine 08/24/15 documented as of this encounter
--- OUTSIDE RECORDS SUMMARY | 2024-03-04 16:59 | XMS_ITS | Encounter Summary ---
Author Organization [facility] Address [address] [place] [address] Care Team Providers Care Javascript Developer Name Role Phone Donte Padgett MD Primary Care Provider +1 [phone] Encounter Details Date Type Department Care Team (Late st Contact Info) Description 04/16/2021 Lab Requisition [facility] Pathology & Laboratory Medicine - [address] [address] Outr Resulting Lab, Provider Social History Tobacco Use Types Packs/Day Years [...] No 08/18/2017 documented as of this encounter Plan of Treatment Not on file documented as of this encounter Procedures Procedure Name Priority Date/Time Associated Diagnosis Comments ZZCOVID-19 TEST [facility] PCR Today 2021 17:15 EDT COVID-19 TESTING Routine 2021 17:1 5 EDT documented in this encounter Results * COVID-19 TEST [facility] PCR (2021 17:15 EDT) Swab ENTIRE NASOPHARYNX / Unknown 2021 17:15 EDT 04/16/2021 16:53 EDT Provider Outr Resulting Lab MICROBIOLOGY - GENERAL ORDERABLES Performing Organization Address City/[facility]/ZIP Co de Phone Number [facility] [address] [place] [address] * COVID-19 TESTING (2021 17:15 EDT) COVID-19 rt-PCR Result Negative Negative 04/17/2021 10:44 EDT [facility] Comment: This test has not been FDA cleared or approved. This test has been authorized by FDA under an EUA for use by authorized laboratories. This test has been authorized only for detection of nucleic acid from 2019-nCoV, not for any other viruses or pathogens. This test is only authorized for the duration of the declaration that circumstances exist justifying the authorization of emergency use of in vitro diagnostic tests for detection and/or diagnosis of 2019-nCoV under section 564(b)(1) of Act, 21 U.S.C ?? 360bbb-3(b) (1), unless the authorization is terminated or revoked sooner. Negative results do not preclude 2019-nCoV infection and should not be used as the sole basis for treatment or other patient management decisions. Negative results must be combined with clinical observations, patient history, and epidemiological information. Testing was performed using the pedrito SARS-CoV-2 assay ([employer] on the Pedrito 6800 System Performing Lab Pedrito 6800 [facility] 04/17/2021 10:44 EDT [facility] Swab 2021 17:1 5 EDT 04/16/2021 16:53 EDT Provider Outr Resulting Lab MICROBIOLOGY - GENERAL ORDERABLES Performing Organization Address City/[facility]/ZIP Co de Phone Number [facility] [address] [place] [address] documented in this encounter Visit Diagnoses Not on filedocumented in this encounter Care Teams Javascript Developer Relationship Specialty Start Date End Date Donte Padgett MD PCP - General 07/20/14 documented as of this encounter
--- OUTSIDE RECORDS SUMMARY | 2024-03-04 16:59 | XMS_ITS | Encounter Summary ---
Author Organization [facility] Address [address] [place] [address] Care Team Providers Care Health And Safety Director Name Role Phone Donte Padgett MD Primary Care Provider [phone] [phone] Reason for Visit * Reason Onset Date Comments Appointment Related 08/01/2014 Encounter Details Date Type Department Care Team (Late st Contact Info) Description 08/01/2014 Telephone [facility] Therapy - [facility] [address] [place], [place] [address] Mohini Lopez, [address] [place] [address] Appointment Related Social History Tobacco Use Types Packs/Day Years Used Date Smoking Tobacco: Never Assessed Sex and Gender Information Value Date Recorded Sex Assigned at Not on file Gender Identity Not on file Sexual Orientation Not on file documented as of this encounter Miscellaneous Notes * Telephone Encounter - Diamond Escobar - 08/01/2014 1112 EST Left message regarding scheduling a wheelchair evaluation. documented in this encounter Plan of Treatment Not on file documented as of this encounter Visit Diagnoses Not on filedocumented in this encounter Care Teams Health And Safety Director Relationship Specialty Start Date End Date Donte Padgett MD PCP - General 07/20/14 documented as of this encounter
--- OUTSIDE RECORDS SUMMARY | 2024-03-04 16:59 | XMS_ITS | Encounter Summary ---
Author Organization [facility] Address [address] [place] [address] Care Team Providers Care Meteorological Technician Name Role Phone Donte Padgett MD Primary Care Provider [phone] [phone] Reason for Visit * Reason Onset Date Comments Appointment Related 08/27/2015 Encounter Details Date Type Department Care Team (Late st Contact Info) Description 08/27/2015 Telephone [facility] Therapy - [address] [address] Therapy, Outpatient, Appointment Related Social History Tobacco Use Types Packs/Day Years Used Date Smoking Tobacco: Never Assessed Sex and Gender Information Value Date Recorded Sex Assigned at Not on file Gender Identity Not on file Sexual Orientation Not on file documented as of this encounter Miscellaneous Notes * Telephone Encounter - Brooke Rahman - 08/27/2015 1620 EST I called and left a message on the answering machine reminding the patient of their wheelchair clinic appointment, to occur in two business day's time documented in this encounter Plan of Treatment Not on file documented as of this encounter Visit Diagnoses Not on filedocumented in this encounter Care Teams Meteorological Technician Relationship Specialty Start Date End Date Donte Padgett MD PCP - General 07/20/14 documented as of this encounter
--- OUTSIDE RECORDS SUMMARY | 2024-03-04 16:59 | XMS_ITS | Encounter Summary ---
Author Organization [facility] Address [address] [place] [address] Care Team Providers Care Entry Level Manufacturing Engineer Name Role Phone Donte Padgett MD Primary Care Provider +1 -[phone] Encounter Details Date Type Department Care Team (Late st Contact Info) Description 12/19/2022 Lab Requisition [facility] Pathology & Laboratory Medicine - [facility] [address] [place] [address] Braulio Pradhan MD [address] [place] [address] [address] [place], [place] [id number] Encounter for other general examination Social History Tobacco Use Types Packs/Day Years [...] Priority Date/Time Associated Diagnosis Comments SURGICAL PATHOLOGY Today 12/19/2022 11 :59 EDT Encounter for other general examination documented in this encounter Results * SURGICAL PATHOLOGY (12/19/2022 11:59 EDT) Note to Patient The following pathology results have been interpreted by your pathologist and may be available to you before your health provider has had the opportunity to review them. Please allow time for your provider to receive these results and explore management options, if applicable. 12/24/2022 13:50 [facility] Final Diagnosis A. COLON, SIGMOID, SEGMENTAL RESECTION: - Colonic tissue with no significant diagnostic abnormalities. - Negative for dysplasia and malignancy. 12/24/2022 13:50 [facility] Attestation By the signature below, the attending physician certifies that they have 1) personally conducted a gross and/or microscopic examination of the described specimen(s), and/or personally interpreted the results of laboratory testing of the described specimen(s), and 2) personally rendered or confirmed the above diagnosis. 12/24/2022 13:50 [facility] at [address]50 Clinical History Rectal prolapse 12/24/2022 13:50 [facility] Gross Description A. Received in formalin labelled with proper patient identification (initials L, B) and sigmoid colon is a 10.0 cm in length by 3.1 cm in diameter unoriented, unopened segment of colon with 1 open and 1 stapled margin. The serosa is smooth and pink-ziegler. No perforations are identified. There is a black suture along the stapled end of the specimen. Sectioning reveals pink-ziegler mucosa with the usual folds. The wall thickness averages 0.2 cm. No masses or lesions identified. Metal Stamper sections are submitted as follows: BLOCK KUMARI A1- open margin, bisected and submitted en face A2- stapled margin, bisected and submitted en face A3-A4- sections of unremarkable colonic mucosa MALCOM MCCABE(ASCP) 12/22/2022 11:30 12/24/2022 13:50 [facility] Performing Lab [facility] 12/24/2022 13:50 EDT [facility] Scanned Images 12/24/2022 13:50 EDT [facility] Tissue ENTIRE SIGMOID COLON / Unknown 12/19/2022 11:59 EDT 12/19/2022 19:11 EDT Braulio Pradhan MD PATHOLOGY ORDERA LUCÍA [facility] [address] [place] [address] documented in this encounter Visit Diagnoses Diagnosis Encounter for other general examination documented in this encounter Care Teams Entry Level Manufacturing Engineer Relationship Specialty Start Date End Date Donte Padgett MD PCP - General 07/20/14 documented as of this encounter
--- OUTSIDE RECORDS SUMMARY | 2024-03-04 16:59 | XMS_ITS | Encounter Summary ---
Author Organization [facility] Address [address] [place] [address] Care Team Providers Care Staff Midwife Name Role Phone Donte Padgett MD Primary Care Provider +1 -[phone] Encounter Details Date Type Department Care Team (Late st Contact Info) Description 01/04/2015 12:26 EDT - 01/04/2015 23:59 EDT Hospital Encounter [address] [address] Donte Padgett MD [address] [place] [address] Discharge Disposition: Home or Self Care Social [...] Code Departure Means Destination Home or Self Usp documented in this encounter Plan of Treatment Not on file documented as of this encounter Visit Diagnoses Not on filedocumented in this encounter Care Teams Staff Midwife Relationship Specialty Start Date End Date Donte Padgett MD PCP - General 07/20/14 documented as of this encounter
--- OUTSIDE RECORDS SUMMARY | 2024-03-04 16:59 | XMS_ITS | Encounter Summary ---
Author Organization [facility] Address [facility] [place] [address] Care Team Providers Care Trimmer Machine Name Role Phone Donte Padgett MD Primary Care Provider +1 -[phone] Encounter Details Date Type Department Care Team (Late st Contact Info) Description 02/05/2016 Ancillary Procedure [place] [address] Donte Padgett MD [address] [place], [place] [id number] Social History Tobacco Use Types Packs/Day Years [...] TH Visit (TeleHealth) [place] [address] Yue Darby MD [facility] HOSPICE AND P[place]IATIVE [place] [address] 04/12/2024 11:30 AM EDT [place] [address] Yue Darby MD [facility] HOSPICE AND P[place]ATIVE [place] [address] 04/28/2024 8:30 AM EDT TH Visit (TeleHealth) [place] [address] Yue Darby MD [facility] HOSPICE AND P[place]AT[place] [address] documented as of this encounter Procedures Procedure Name Priority Date/Time Associated Diagnosis Comments FILM LIBRARY STORAGE ONLY ULTRASOUND STUDY Routine 02/05/2016 12:00 AM EDT documented in this encounter Results * Film Library- Storage Only Ultrasound Study (02/05/2016 12:00 AM EDT) Narrative [facility] - 03/06/2023 1:35 PM EDT This exam is auto-finalizing. It's purpose is for storage only. Donte Padgett MD IMG FILM LIBRARY ORDERABLES [place], [place] documented in this encounter Visit Diagnoses Not on filedocumented in this encounter Care Teams Trimmer Machine Relationship Specialty Start Date End Date Donte Padgett MD [address] [place] [address] PCP - General Family Medicine 08/24/15 documented as of this encounter
--- OUTSIDE RECORDS SUMMARY | 2024-03-04 16:59 | XMS_ITS | Encounter Summary ---
Author Organization [facility] Address [address] [place] [address] Care Team Providers Care Powder Operator Name Role Phone Donte Padgett MD Primary Care Provider +1 -[phone] Encounter Details Date Type Department Care Team (Late st Contact Info) Description 01/25/2015 Results Only [facility] [phone] Mann Rush, [address] [facility] [address] [place] [address] Social History Tobacco Use Types Packs/Day Years Used Date Smoking Tobacco: Never Assessed Sex and Gender Information Value Date Recorded Sex Assigned at Not on file Gender Identity Not on file Sexual Orientation Not on file documented as of this encounter Plan of Treatment Not on file documented as of this encounter Procedures Procedure Name Priority Date/Time Associated Diagnosis Comments SURGICAL PATHOLOGY Routine 01/25/2015 18 :34 EDT documented in this encounter Results * SURGICAL PATHOLOGY (01/25/2015 18:34 EDT) Pathology Report: SURGICAL PATHOLOGY REPORT Reports generated via electronic interface contain original data; however they are lacking the format of the original report. Caution should be taken when reading/interpret ing unformatted reports. Name: ? DARIO DE LA TORRE ? Accession #: ? [id number] ? : ? 1990 (Age: 24) ??M ? Collect Date: ? 01/25/2015 ? Location: ? [facility] ? Receive Date: ? 01/25/2015 ? Provider: MANN RUSH DO Copy to: ? Final Pathologic Diagnosis: A. ??COLON, SIGMOID, BIOPSY: - Colonic mucosa with no specific pathologic features. B. ??RECTUM, BIOPSY: - Rectal mucosa with no specific pathologic features. ?? Document reviewed and electronically signed by: TRINH FERREIRA MD Report ??Date: 01/26/2015 16:07 By the signature above, the attending physician certifies that he/she has personally conducted a gross and/or microscopic examination of the described specimens and rendered or confirmed the above diagnosis. Specimen(s) Received: A. ??Sigmoid bx B. ??Rectum bx Clinical History: Crampy lower abdominal pain Gross Description: A. ?Received in formalin labelled with proper patient identification (initials L, B) and sigmoid biopsy are two pink-ziegler tissues (0.2 x 0.2 x 0.2 cm and 0.5-0.2 x 0.2 cm). Entirely submitted in A1. B. ?Received in formalin labelled with proper patient identification (initials L, B) and rectum biopsy are two pink-ziegler tissues (each 0.2 x 0.2 x 0.2 cm). Entirely submitted in B1. Bernadette01/26/2015 8:40 AM End of Report [facility] 01/25/2015 18:3 4 EDT 01/25/2015 18:34 EDT Mann Rush DO PATHOLOGY ORDER JAYNA [facility] [address] [place] [address] documented in this encounter Visit Diagnoses Not on filedocumented in this encounter Care Teams Powder Operator Relationship Specialty Start Date End Date Donte Padgett MD PCP - General 07/20/14 documented as of this encounter
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
--- OUTSIDE RECORDS SUMMARY | 2024-03-04 16:59 | XMS_ITS | Encounter Summary ---
Author Organization [facility] Address [address] [place] [address] Care Team Providers Care Otter Trawler Boatswain Name Role Phone Donte Padgett MD Primary Care Provider [phone] Reason for Visit * Reason Onset Date Comments Appointment Related 12/12/2014 Encounter Details Date Type Department Care Team (Late st Contact Info) Description 12/12/2014 Telephone [facility] Rehabilitation Therapy - [address] [address] Reina Ford, OT Appointment Related Social History Tobacco Use Types Packs/Day Years Used Date Smoking Tobacco: Never Assessed Sex and Gender Information Value Date Recorded Sex Assigned at Not on file Gender Identity Not on file Sexual Orientation Not on file documented as of this encounter Miscellaneous Notes * Telephone Encounter - Diamond Escobar - 12/12/2014 0825 EDT Call placed to Aly letting him know that today's appointment has to be rescheduled due to Horace Allen from [facility] is out sick today and he needs to be a part of this follow-up wheelchair appointment. documented in this encounter Plan of Treatment Not on file documented as of this encounter Visit Diagnoses Not on filedocumented in this encounter Care Teams Otter Trawler Boatswain Relationship Specialty Start Date End Date Donte Padgett MD PCP - General 07/20/14 documented as of this encounter
--- OUTSIDE RECORDS SUMMARY | 2024-03-04 16:59 | XMS_ITS | Encounter Summary ---
Author Organization [facility] Address [address] [place] [address] Care Team Providers Care Senior Accountant Analyst Name Role Phone Donte Padgett MD Primary Care Provider [phone] Reason for Visit * Reason Onset Date Comments Appointment Related 10/10/2014 Encounter Details Date Type Department Care Team (Late st Contact Info) Description 10/10/2014 Telephone [facility] Rehabilitation Therapy - [address] [id number] Mohini Lopez, PT [address] [place] [address] Appointment Related Social History Tobacco Use Types Packs/Day Years Used Date Smoking Tobacco: Never Assessed Sex and Gender Information Value Date Recorded Sex Assigned at Not on file Gender Identity Not on file Sexual Orientation Not on file documented as of this encounter Miscellaneous Notes * Telephone Encounter - Diamond Escobar - 10/10/2014 0924 EDT [facility] - [address] [address] Telephone Intake Information for Scheduling NEW Patients for Therapy Referring Provider: Donte Padgett Script/referral: In folder Primary Insurance: Medicare A/B Secondary Insurance: Medicaid If Medicare: Have you received a letter from Medicare about the therapy cap? No Have you been seen in therapy since July of this year? No By whom?N/A How many visits have you had since July first of this year 0 Are you receiving any home health or VNA services? No Notes/other: Needs 10:00 or later appointment. Date: Thursday11/13/14 Therapist: Mohini Lopez, PT - 10:00 Location: [facility] Name of Supplier: [employer] Name of Rep: Horace Allen - 10:30 Reason For Appt: manual wheelchair evaluation Pressure Mapping? No Diamond Escobar documented in this encounter Plan of Treatment Not on file documented as of this encounter Visit Diagnoses Not on filedocumented in this encounter Care Teams Senior Accountant Analyst Relationship Specialty Start Date End Date Donte Padgett MD PCP - General 07/20/14 documented as of this encounter
--- OUTSIDE RECORDS SUMMARY | 2024-03-04 16:59 | XMS_ITS | Encounter Summary ---
Author Organization [facility] Address [address] [place] [address] Care Team Providers Care Airway Traffic Controller Name Role Phone Donte Padgett MD Primary Care Provider [phone] Encounter Details Date Type Department Care Team (Late st Contact Info) Description 06/12/2015 Results Only [facility]- [facility] [phone] Arturo Hilton MD [address] [facility] [address] [place] [id number] Social History Tobacco Use Types Packs/Day Years Used Date Smoking Tobacco: Never Assessed Sex and Gender Information Value Date Recorded Sex Assigned at Not on file Gender Identity Not on file Sexual Orientation Not on file documented as of this encounter Plan of Treatment Not on file documented as of this encounter Procedures Procedure Name Priority Date/Time Associated Diagnosis Comments SURGICAL PATHOLOGY Routine 06/12/2015 9:59 EST documented in this encounter Results * SURGICAL PATHOLOGY (06/12/2015 9:59 EST) Pathology Report: SURGICAL PATHOLOGY REPORT Reports generated via electronic interface contain original data; however they are lacking the format of the original report. Caution should be taken when reading/interpretin g unformatted reports. Name: ? DARIO DE LA TORRE ? Accession #: ? [id number] ? : ? 1990 (Age: 25) ??M ? N #: ? [id number] ? Collect Date: ? 06/12/2015 ? Location: ? [facility] ? Receive Date: ? 06/14/2015 ? Provider: KELLE HILTON MD Copy to: ? Final Pathologic Diagnosis: A. SMALL INTESTINE, 2ND PORTION OF DUODENUM, BIOPSY: - ??Duodenal mucosa with no significant diagnostic abnormality. B. STOMACH, ANTRUM AND BODY, BIOPSY: - ??Antral and oxyntic mucosa with reactive gastropathy. - ??No evidence of Helicobacter pylori on H&E. ?? C. GASTROESOPHAGEAL JUNCTION, BIOPSY: - ??Cardia-type mucosa with intestinal metaplasia and reparative change; negative for dysplasia. - ??Adjoining squamous mucosa with reflux esophagitis Document reviewed and electronically signed by: GUSTAVO HARE MD Report ??Date: 06/18/2015 09:42 By the signature above, the attending physician certifies that he/she has personally conducted a gross and/or microscopic examination of the described specimens and rendered or confirmed the above diagnosis. Specimen(s) Received: A. ?2nd portion duodenum B. ? Antrum and body C. ? EGJ Clinical History: Dyspepsia, esophagitis grade II; clinical diagnosis code: ??R10.32, R10.31 Gross Description: A. ?Received in formalin labelled with proper patient identification (initials L, B) and second portion duodenum ??is a single fragment of ziegler-pink tissue (0.4 x 0.3 x 0.2 cm). The specimen is submitted entirely in A1. B. ?Received in formalin labelled with proper patient identification (initials L, B) and antrum and body are three fragments of ziegler-pink tissue (0.2 x 0.2 x 0.1 cm to 0.4 x 0.2-0.2 cm). The specimen is submitted entirely in B1. C. ?Received in formalin labelled with proper patient identification (initials L, B) and EGJ are two fragments of ziegler-pink tissue (each 0.2 x 0.2 x 0.2 cm). The specimen is submitted entirely in C1. 06/14/2015 10:38 AM End of Report [facility] 06/12/2015 9:59 EST 06/14/2015 9:59 EST Arturo Hilton MD PATHOLOGY ORDERABLES [facility] [address] [place] [address] documented in this encounter Visit Diagnoses Not on filedocumented in this encounter Care Teams Airway Traffic Controller Relationship Specialty Start Date End Date Donte Padgett MD PCP - General 07/20/14 documented as of this encounter
--- OUTSIDE RECORDS SUMMARY | 2024-03-04 16:59 | XMS_ITS | Encounter Summary ---
Author Organization [facility] Address [facility] [place] [address] Care Team Providers Care Fiction And Nonfiction Prose Writer Name Role Phone Donte Padgett MD Primary Care Provider [phone] Encounter Details Date Type Department Care Team (Latest Contact Info) Description 10/18/2015 1:05 PM EDT - 10/18/2015 4:45 PM EDT Hospital En[place] [address] Seth Yeh MD [facility] GASTROENTER[place] [address] Discharge Disposition: Home Social History Tobacco Use [...] Sign Reading Time Taken Comments Blood Pressure 132/67 10/18/2015 3:31 PM EDT Pulse 85 10/18/2015 3:31 PM EDT Temperature - - Respiratory Rate 18 10/18/2015 3:31 PM EDT Oxygen Saturation 99% 10/18/2015 3:31 PM EDT Inhaled Oxygen Concentration - - Weight 83.5 kg (184 lb) 10/18/2015 2:22 PM EDT Height 190.5 cm (6' 3) 10/18/2015 2:22 PM EDT Body Mass Index 23 10/18/2015 2:22 PM EDT documented in this encounter Discharge Instructions * Discharge Instructions* Brooke Garcia RN - 10/18/2015 3:33 PM EDT Please call [phone] before 8pm with problems, questions or concerns, after 5pm call the Hospital at [phone] and ask to speak to the Investor Relations Director account installation specialist and the contour path tape mill operator will contact that person for you. [...] through Care Everywhere. * COLONOSCOPY : POST-OP (ETHIOPIAN) documented in this encounter Medications at Time [...] PM EDT TH Visit (TeleHealth) [place] [address] Yue Darby MD [facility] DR [facility]PICE AND [place]IAT[place] [address] 04/12/2024 11:30 AM EDT [place] [address] Yue Darby MD [facility] [place]IVE [place] [address] 04/28/2024 8:30 AM EDT TH Visit (TeleHealth) [place] [address] Yue Darby MD [facility]OSPICE [facility] [place]IAT[place] [address] documented as of this encounter Procedures Procedure [...] Report (10/18/2015 3:32 PM EDT) Final Diagnosis [id number] ? Location: 4T; EA06; A The signing pathologist has (i) examined [...] sing: (T2) ??sns 10/22/2015 2:50 PM EDT [facility] GI Biopsy 10/18/2015 3:32 PM EDT 10/18/2015 3:32 PM EDT GI Biopsy 10/18/2015 3:32 PM EDT 10/18/2015 3:32 PM EDT Seth Yeh MD PATHOLOGY/CYTOLOGY O RDERABLES [facility] [place] [address] * Specimen to Pathology (surgical or derm) (10/18/2015 3:32 PM EDT) AP Specimen 10/18/2015 3:32 PM EDT 10/18/2015 3:32 PM EDT Narrative [facility] - 10/18/2015 3:32 PM EDT Specimen requisition ordered. ??Separate Pathology report to follow Seth Yeh MD PATHOLOGY/CYTOLOGY O KISHOR Performing Organization Address [facility] [place] [address] * Specimen to Pathology (surgical or derm) (10/18/2015 3:32 PM EDT) AP Specimen 10/18/2015 3:32 PM EDT 10/18/2015 3:32 PM EDT Narrative [facility] - 10/18/2015 3:32 PM EDT Specimen requisition ordered. ??Separate Pathology report to follow Seth Yeh MD PATHOLOGY/CYTOLOGY O KISHRO Performing Organization Address [facility] [place] [address] * UPPER GI ENDOSCOPY (10/18/2015 2:27 PM EDT) UPPER GI ENDOSCOPY [facility] Endoscopy Patient Name: Aly De La Torre ? Procedure Date: 10/18/2015 2:27 PM ? Date of : 1990 ? Age: 25 ? Order #: [id number] ? Procedure: ? Upper GI endoscopy Indications: ? Iron deficiency anemia Patient Profile: ? This is a 25 year old male. Refer to ? note in patient chart for ? documentation of history and physical. Providers: ? Melissa Quintero, MILO, ? July Regalado, Improvement Lead Referring MD: ?Donte Padgett MD Medicines: ? [...] care under the ? supervision of a TELEGRAPHIC INSTRUMENT SUPERVISOR was determined ? to be medically necessary [...] * COLONOSCOPY (10/18/2015 2:26 PM EDT) COLONOSCOPY [facility] Endoscopy ___ Patient Name: Aly De La Torre ? Procedure Date: 10/18/2015 2:26 PM ? N: [id number] ? Date of : 1990 ? Age: 25 ? Order #: [id number] ? ___ Procedure: ? Colonoscopy Indications: ? Iron deficiency anemia Providers: ? Seth Yeh, Melissa Cruz, RN, ? July Regalado, Improvement Lead Referring MD: ?Donte Padgett MD Medicines: ? [...] care under the ? supervision of a TELEGRAPHIC INSTRUMENT SUPERVISOR was determined ? to be medically necessary [...] Starting on Bel[place] 10/18/15 at 1430, Until [place] 10/18/15 at 1607, Endoscopy (Day of Procedure) 1436 (New Bag - Prov ider: Mariana Araya RN)1530 (Anesthesia Volume Adjustment - Provider: Stephen Bennett CRNA) documented in this encounter Care Teams Fiction And Nonfiction Prose Writer Relationship Specialty Start Date End Date Donte Padgett MD [address] [place] [address] PCP - General Family Medicine 08/24/15 documented as of this encounter
--- OUTSIDE RECORDS SUMMARY | 2024-03-04 16:59 | XMS_ITS | Encounter Summary ---
Author Organization [facility] Address [facility] [place] [address] Care Team Providers Care Web Marketing Analyst Name Role Phone Donte Padgett MD Primary Care Provider [phone] [phone] Encounter Details Date Type Department Care Team (Latest Contact Info) Description 12/11/2015 7:32 AM EDT - 12/11/2015 10:46 PM EDT Hospital [place] [phone] Turner Owen MD [facility] [place] [address] Discharge Disposition: Home Social History Tobacco Use [...] PM EDT TH Visit (TeleHealth) [place] [phone] Yue Darby MD [facility] HOSPICE AND [place] [address] 04/12/2024 11:30 AM EDT [place] [phone] Yue Darby MD [facility] HOSPICE AND [place] [address] 04/28/2024 8:30 AM EDT TH Visit (TeleHealth) [place] [phone] Yue Darby MD [facility] HOSPICE AND [place] [address] documented as of this encounter Procedures Procedure Name Priority Date/Time Associated Diagnosis Comments VIDEO CAPSULE ENDOSCOPY Routine 12/11/2015 6:11 PM EDT VIDEO CAPSULE ENDOSCOPY (WRVU 2.24) 12/11/2015 8:00 AM EDT Iron deficiency anemia, unspecified iron deficiency anemia type documented in this encounter Results * VIDEO CAPSULE ENDOSCOPY (12/11/2015 6:11 PM EDT) VIDEO CAPSULE ENDOSCOPY [facility] Endoscopy Patient Name: Aly De La Torre ? Procedure Date: 12/11/2015 6:11 PM ? Date of : 1990 ? Age: 25 ? Order #: [id number] ? Procedure: ? Video capsule endoscopy Indications: [...] on filedocumented in this encounter Care Teams Web Marketing Analyst Relationship Specialty Start Date End Date Donte Padgett MD [address] [place] [address] PCP - General Family Medicine 08/24/15 documented as of this encounter
[2024-03-04 17:49] LABS: Bilirubin Negative (Negative); Blood Negative (Negative); Clarity Clear (Clear); Glucose Negative (Negative); Ketones Negative (Negative); Leukocyte Esterase Trace (Negative); Nitrite Negative (Negative); Urobilinogen 0.2 mg/dL (Up to 0.2)
[2024-03-04 17:56] LABS: Bacteria Negative HPF (Negative); C & S Indicated? C&S Done As Ordered; Crystals Negative HPF (Negative); Epithelial Cells Rare HPF (Negative); Mucus Negative (Negative); RBC Negative HPF (0-2)
== END 2024-03-04 16:41 | disposition home or self-care (01) ==
LOC: LBN 16:40
PROVIDERS: PCP Family Medicine; Visit Provider Nurse Practitioner Gerontology
DX: N39.0 Urinary tract infection, site not specified (principal)
CPT/HCPCS: 81003; 81015; 87086

== ENCOUNTER 2024-03-13 08:40 | Emergency (ER) | payer MEDICARE, MEDICAID, SELFPAY ==
[2024-03-13 08:42] VITALS: BP 103/66; PULSE 70; RESP 18; TEMP 36.8; O2SAT 96
--- NOTE | 2024-03-13 08:45 | DI.CT_ITS ---
Exam(s) CT ABDOMEN PELVIS W EXAM: CT ABDOMEN PELVIS W CLINICAL HISTORY: left lower abd pain, ostomy TECHNIQUE: Imaging Protocol: Axial computed tomography images with coronal and sagittal reformatted images were created and reviewed. CONTRAST MATERIAL: Intravenous: Omnipaque 350 Contrast volume:100 mL Oral: No COMPARISON: CT CT ABDOMEN PELVIS W from 06/17/2023 FINDINGS: ABDOMEN: Lung Bases: Normal where visualized. Liver: Normal density. No measurable mass. Portal, Superior Mesenteric, and Splenic Veins: Unremarkable. Gallbladder and Biliary Tract: No radiodense calculus or dilation. Pancreas: Normal density, no abnormal calcifications or inflammatory process. Spleen: Normal. Adrenals: No masses seen. Kidneys: Normal size, contour and axis. No radiodense stones or obstructive uropathy. No masses seen. Abdominal Aorta: Abdominal portion non-dilated. Atherosclerotic calcification is present. Bowel: The patient has a left lower quadrant colostomy. There is no evidence of bowel obstruction. There is mild wall thickening seen in the ascending colon and proximal transverse colon. The bowel i s otherwise unremarkable. The colostomy site looks grossly unremarkable. Appendix is unremarkable. Peritoneal Cavity: No ascites, collection or mesenteric inflammatory response. No free air. Lymph Nodes: Within normal limits. Bones: Within normal limits for the patient's age. Soft Tissues: Unremarkable. PELVIS: Bladder: Symmetric distention, no gross wall thickening. Reproductive Organs: Unremarkable as visualized. Lymph Nodes: Within normal limits. Bones: Within normal limits for the patient's age. IMPRESSION: 1. Mild wall thickening seen in the ascending and proximal transverse colon. This may represent a co litis. No evidence of bowel obstruction. 2. Left lower quadrant colostomy which is unremarkable. RADIATION DOSE DELIVERED: 514.58mGy.cm Total DLP DATA REPOSITORY: All CT scans at this facility are submitted to the National Radiology Data Registry (NRDR) Dose Index Registry (DIR) with the [employer] (ACR). RADIATION OPTIMIZATION: All CT scans at this facility use at least one of these dose optimization te chniques: automated exposure control; mA and/or kV adjustment per patient size (includes targeted exa ms where dose is matched to clinical indication); or iterative reconstruction.
--- NOTE | 2024-03-13 08:45 | RT.EKG_ITS ---
APPROVED REPORT Exam: Resting ECG Reason for Exam: checking qtc Patient Location: E HR:61 bpm ECG Measurements Heart Rate 61 AXIS GA 198 P 71 QRSd 108 QRS 71 QT 422 T 67 QTc 425 Conclusion Sinus rhythm...normal P axis, V-rate 60- 99 Left atrial enlargement...P, P'>60mS, <-0.15mV V1 ST elev, probable normal early repol pattern...ST elevation, age<55 sinus rhtyhm, normal axis, normal intervals, non ischemic
[2024-03-13 08:59] VITALS: BP 119/82; PULSE 64; PULSE 70; RESP 13; O2SAT 97
[2024-03-13 09:00] VITALS: RESP 14; O2SAT 93
[2024-03-13 09:01] VITALS: BP 138/93; PULSE 63; PULSE 67; RESP 12; O2SAT 94
[2024-03-13 09:02] VITALS: BP 138/93; PULSE 65; RESP 15; O2SAT 95
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
[2024-03-13] MEDS: Normal Saline 1,000 ML 1000 ML IV (09:25)
[2024-03-13 09:29] LABS: Absolute Basophil Count 0.01 10^3/uL (0.0-0.2); Absolute Eosinophil Count 0.07 10^3/uL (0.0-0.7); Absolute Lymphocyte Count 1.21 10^3/uL (1.2-3.4); Absolute Monocyte Count 0.36 10^3/uL (0.1-0.8); Absolute Neutrophil Count 3.44 10^3/uL (1.2-6.7); Basophils % 0.2 %; Eosinophils % 1.4 %; HCT 41.8 % (40.0-50.0); HGB 14.4 g/dL (13.5-17.5); Lymphocytes % 23.8 %; MCH 29.2 pg (27.0-33.0); MCHC 34.4 % (32.0-36.0); MCV 85 fL (80-95); MPV 9.4 fL (8.0-11.0); Monocytes % 7.1 %; Neutrophils % 67.5 %; Platelet Count 144 10^3/uL (130-400); RBC 4.93 10^6/uL (4.36-5.78); RDW 12.6 % (11.8-14.1); RDW-SD 38.8 fL; WBC 5.09 10^3/uL (4.4-10.8)
[2024-03-13] MEDS: Droperidol 5 MG/2 ML VIAL 1.25 MG IVP (09:42)
[2024-03-13 09:46] LABS: ALT 34 U/L (16-63); AST 24 U/L (15-37); Albumin 3.9 g/dL (3.4-5.0); Alkaline Phosphatase 99 U/L (46-116); Anion Gap 8.4 mmol/L (3-11); BUN 7 mg/dL (7-18); Bilirubin, Total 0.76 mg/dL (0.2-1.0); CO2 26.6 mmol/L (21.0-32.0); CREATININE 0.6 mg/dL (0.70-1.30); Calcium 9.5 mg/dL (8.5-10.1); Chloride 99 mmol/L (98-107); Estimated GFR 130.72 (mL/min/1.73m2); Glucose 96 mg/dL (74-106); Lipase 38 U/L (16-77); Potassium 3.8 mmol/L (3.5-5.1); Sodium 134 mmol/L (136-145); Total Protein 7.5 g/dL (6.4-8.2)
[2024-03-13] MEDS: Normal Saline - Diluent 50 ML VIAL IJ (10:24)
[2024-03-13] MEDS: ACETAMINOPHEN 1,000 MG/100 ML BTL 400 MG IVPB (11:00)
[2024-03-13] MEDS: Amoxicillin 875/Clav. 125 TAB PO (11:54)
== END 2024-03-13 12:07 | disposition home or self-care (01) ==
PROVIDERS: Emergency Provider Emergency Medicine; PCP Family Medicine
DX: K52.9 Noninfective gastroenteritis and colitis, unspecified (principal); G82.20 Paraplegia, unspecified; T14.8XXS Other injury of unspecified body region, sequela; Z93.3 Colostomy status; Z98.1 Arthrodesis status; F17.210 Nicotine dependence, cigarettes, uncomplicated
CPT/HCPCS: 36415; 80053; 83690; 93005; 96374; 96375; 99285; 74177; 83735; 85025; 93010; 99284; J0131; J1790

== ENCOUNTER 2024-03-29 16:02 | Outpatient (REF) | payer MEDICARE, MEDICAID, SELFPAY | END 2024-03-29 16:03 | LOC: LBN 16:02 | PROVIDERS: PCP Family Medicine; Visit Provider Nurse Practitioner Family | DX: R30.9 Painful micturition, unspecified (principal); R82.89 Other abnormal findings on cytological and histological examination of urine | CPT/HCPCS: 87086 ==

== ENCOUNTER → 2024-04-21 13:28 | Outpatient (BNVA) | payer MEDICARE, MEDICAID, SELFPAY | PROVIDERS: PCP Family Medicine; Referring Provider Family Medicine; Visit Provider Nurse Practitioner Gerontology | DX: R33.9 Retention of urine, unspecified (principal); R30.9 Painful micturition, unspecified | CPT/HCPCS: 99443 ==

== ENCOUNTER 2024-04-26 19:54 | Outpatient (REF) | payer MEDICARE, MEDICAID, SELFPAY ==
[2024-04-26 15:54] LABS: Bilirubin Negative (Negative); Blood Trace-intact (Negative); Clarity Cloudy (Clear); Glucose Negative (Negative); Ketones Negative (Negative); Leukocyte Esterase Large (Negative); Nitrite Negative (Negative); Specific Gravity 1.015 (1.005-1.025); Urobilinogen 0.2 mg/dL (Up to 0.2)
[2024-04-26 16:17] LABS: C & S Indicated? C&S Done As Ordered; WBC >50 HPF (0-5)
== END 2024-04-26 19:55 ==
LOC: LBN 19:54
PROVIDERS: PCP Family Medicine; Visit Provider Nurse Practitioner Gerontology
DX: R33.9 Retention of urine, unspecified (principal); R30.9 Painful micturition, unspecified
CPT/HCPCS: 87077; 81003; 81015; 87086; 87186

== ENCOUNTER 2024-05-25 22:46 | Outpatient (REF) | payer MEDICARE, MEDICAID, SELFPAY | END 2024-05-25 22:47 | disposition home or self-care (01) | LOC: LBN 22:46 | PROVIDERS: PCP Family Medicine; Visit Provider Physician Assistant | DX: N39.0 Urinary tract infection, site not specified (principal) | CPT/HCPCS: 87077; 87086; 87186 ==

== ENCOUNTER → 2024-05-31 08:19 | Outpatient (BNVA) | payer MEDICARE, MEDICAID, SELFPAY | PROVIDERS: PCP Family Medicine; Referring Provider Family Medicine; Visit Provider Urology | DX: N39.0 Urinary tract infection, site not specified (principal); R31.9 Hematuria, unspecified | CPT/HCPCS: 99443 ==

== ENCOUNTER → 2024-06-21 15:06 | Outpatient (BNVA) | payer MEDICARE, MEDICAID, SELFPAY | PROVIDERS: PCP Family Medicine; Referring Provider Family Medicine; Visit Provider Nurse Practitioner Gerontology | DX: R33.8 Other retention of urine (principal); N39.0 Urinary tract infection, site not specified; R31.9 Hematuria, unspecified | CPT/HCPCS: 99443 ==

== ENCOUNTER 2024-06-23 22:06 | Outpatient (REF) | payer MEDICARE, MEDICAID, SELFPAY ==
[2024-06-23 21:34] LABS: Bilirubin Negative (Negative); Blood Small (Negative); Clarity Cloudy (Clear); Glucose Negative (Negative); Ketones Negative (Negative); Leukocyte Esterase Moderate (Negative); Nitrite Negative (Negative); Specific Gravity 1.015 (1.005-1.025); Urobilinogen 0.2 mg/dL (Up to 0.2)
[2024-06-23 21:45] LABS: WBC >50 HPF (0-5)
[2024-06-23 21:48] LABS: C & S Indicated? C&S Done As Ordered
== END 2024-06-23 22:07 | disposition home or self-care (01) ==
LOC: LBN 22:06
PROVIDERS: PCP Family Medicine; Visit Provider Nurse Practitioner Gerontology
DX: R33.9 Retention of urine, unspecified (principal); R31.9 Hematuria, unspecified; N39.0 Urinary tract infection, site not specified
CPT/HCPCS: 87077; 81003; 81015; 87086; 87186

== ENCOUNTER → 2024-08-03 15:23 | Outpatient (BNVA) | payer MEDICARE, MEDICAID, SELFPAY | PROVIDERS: PCP Family Medicine; Referring Provider Family Medicine; Visit Provider Nurse Practitioner Gerontology | DX: R33.8 Other retention of urine (principal); N39.0 Urinary tract infection, site not specified; R31.9 Hematuria, unspecified | CPT/HCPCS: 99213 ==

== ENCOUNTER → 2024-09-20 14:43 | Outpatient (BNVA) | payer MEDICARE, MEDICAID, SELFPAY | PROVIDERS: PCP Family Medicine; Referring Provider Family Medicine; Visit Provider Urology | DX: N31.9 Neuromuscular dysfunction of bladder, unspecified (principal); N39.0 Urinary tract infection, site not specified | CPT/HCPCS: 52000 ==

== ENCOUNTER 2024-09-22 01:09 | Outpatient (CLI) | payer MEDICARE, MEDICAID, SELFPAY ==
--- NOTE | 2024-09-22 07:15 | DI.US_ITS ---
Exam(s) US RENAL EXAM: US RENAL CLINICAL HISTORY: recurrent UTI,n39.0,r31.9,hematuria. TECHNIQUE: Pimentel scale, color and spectral Doppler were used. COMPARISON: CT CT ABDOMEN PELVIS W from 03/13/2024 FINDINGS: Right kidney: 11.4cm Echogenicity: Normal Hydronephrosis: Mild Cyst or mass: No Nephrolithiasis: No Left kidney: 12.2cm Echogenicity: Normal Hydronephrosis: Moderate Cyst or mass: No Nephrolithiasis: No Bladder:Normal. Prevoid vol:582 cc Postvoid vol:85 cc Prostate volume 16 cc. IMPRESSION: Mild right moderate left hydronephrosis. Elevated postvoid bladder volume. DATA REPOSITORY:
== END 2024-09-22 01:29 ==
LOC: DI 01:09
PROVIDERS: PCP Family Medicine; Visit Provider Urology
DX: N39.0 Urinary tract infection, site not specified (principal); R31.9 Hematuria, unspecified; R82.71 Bacteriuria
CPT/HCPCS: 76770

== ENCOUNTER → 2024-11-29 09:00 | Outpatient (BNVA) | payer MEDICARE, MEDICAID, SELFPAY | PROVIDERS: PCP Family Medicine; Referring Provider Family Medicine; Visit Provider Urology | DX: N39.0 Urinary tract infection, site not specified (principal); R31.9 Hematuria, unspecified | CPT/HCPCS: 99213 ==

== ENCOUNTER 2025-01-13 22:10 | Outpatient (REF) | payer MEDICARE, MEDICAID, SELFPAY ==
[2025-01-13 22:05] LABS: ALT 26 U/L (16-63); AST 20 U/L (15-37); Albumin 3.4 g/dL (3.4-5.0); Alkaline Phosphatase 118 U/L (46-116); Anion Gap 6.3 mmol/L (3-11); BUN 6 mg/dL (7-18); Bilirubin, Total 0.2 mg/dL (0.2-1.0); CO2 28.7 mmol/L (21.0-32.0); Calcium 8.7 mg/dL (8.5-10.1); Calculated LDL 92 mg/dL (<100); Chloride 101 mmol/L (98-107); Cholesterol 143 mg/dL (<200); Estimated GFR 137.26 (mL/min/1.73m2); Glucose 96 mg/dL (74-106); HDL Cholesterol 40 mg/dL (>or=40); Potassium 4.1 mmol/L (3.5-5.1); Sodium 136 mmol/L (136-145); TSH (W/Ref FT4) 2.23 uIU/mL (0.36-3.74); Total Protein 6.6 g/dL (6.4-8.2); Triglyceride 57 mg/dL (<150)
== END 2025-01-13 22:11 | disposition home or self-care (01) ==
LOC: LBN 22:10
PROVIDERS: PCP Family Medicine; Visit Provider Family Medicine
DX: Z00.00 Encounter for general adult medical examination without abnormal findings (principal); F32.9 Major depressive disorder, single episode, unspecified; Z13.6 Encounter for screening for cardiovascular disorders; E03.9 Hypothyroidism, unspecified
CPT/HCPCS: 80053; 80061; 84443

== ENCOUNTER 2025-02-16 16:21 | Outpatient (REF) | payer MEDICARE, MEDICAID, SELFPAY ==
[2025-02-16 19:33] LABS: Glucose Negative (Negative)
[2025-02-16 19:51] LABS: RBC Negative HPF (0-2); WBC 0-2 HPF (0-5)
== END 2025-02-16 16:22 | disposition home or self-care (01) ==
LOC: LBN 16:21
PROVIDERS: PCP Family Medicine; Visit Provider Nurse Practitioner Gerontology
DX: R33.9 Retention of urine, unspecified (principal); R30.9 Painful micturition, unspecified; N31.9 Neuromuscular dysfunction of bladder, unspecified
CPT/HCPCS: 87077; 81003; 81015; 87086; 87186

== ENCOUNTER → 2025-02-21 09:11 | Outpatient (BNVA) | payer MEDICARE, MEDICAID, SELFPAY | PROVIDERS: PCP Family Medicine; Referring Provider Family Medicine; Visit Provider Urology | DX: N39.0 Urinary tract infection, site not specified (principal); R31.9 Hematuria, unspecified; B96.89 Other specified bacterial agents as the cause of diseases classified elsewhere; Z16.24 Resistance to multiple antibiotics | CPT/HCPCS: 99214 ==

== ENCOUNTER 2025-03-01 01:53 | Outpatient (RCR) | payer MEDICARE, MEDICAID, SELFPAY ==
[2025-02-23] MEDS: cefTRIAXone 2 GM/50 ML BAG IVPB (13:45)
[2025-02-23] MEDS: Normal Saline Flush 10 ML SYR IVP (13:45)
[2025-02-24] MEDS: cefTRIAXone 1 GM VIAL IM (14:34)
[2025-02-24] MEDS: Lidocaine 1% Multi-Dose 50 ML VIAL IJ (14:34)
[2025-02-25] MEDS: cefTRIAXone 1 GM VIAL IM (15:02)
[2025-02-25] MEDS: Lidocaine 1% Multi-Dose 50 ML VIAL IJ (15:02)
[2025-02-25 15:05] VITALS: BP 128/73; PULSE 72; RESP 16; TEMP 36.7; O2SAT 98
[2025-02-26] MEDS: cefTRIAXone 1 GM VIAL IM (15:18)
[2025-02-26] MEDS: Lidocaine 1% Multi-Dose 50 ML VIAL IJ (15:18)
[2025-02-26 15:22] VITALS: BP 133/73; PULSE 72; RESP 16; TEMP 36.9; O2SAT 98
[2025-02-27] MEDS: cefTRIAXone 1 GM VIAL IM (14:20)
[2025-02-27] MEDS: Normal Saline-STERILE FIELD 0.9% 10 ML SYR (14:23)
[2025-02-28] MEDS: cefTRIAXone 1 GM VIAL IM (11:25)
[2025-02-28] MEDS: Normal Saline-STERILE FIELD 0.9% 10 ML SYR (11:28)
[2025-03-01] MEDS: cefTRIAXone 1 GM VIAL IM (14:59)
== END 2025-03-05 23:59 | disposition home or self-care (01) ==
LOC: INF 01:53
PROVIDERS: PCP Family Medicine; Visit Provider Urology
DX: N39.0 Urinary tract infection, site not specified (principal)
CPT/HCPCS: 96365; 96372; J0696; J2003

== ENCOUNTER 2025-04-11 14:54 | Outpatient (REF) | payer MEDICARE, MEDICAID, SELFPAY ==
[2025-04-11 16:14] LABS: Glucose Negative (Negative)
[2025-04-11 16:28] LABS: WBC >50 HPF (0-5)
== END 2025-04-11 14:55 | disposition home or self-care (01) ==
LOC: LBN 14:54
PROVIDERS: PCP Family Medicine; Visit Provider Urology
DX: R33.9 Retention of urine, unspecified (principal); R30.9 Painful micturition, unspecified; N39.0 Urinary tract infection, site not specified; R31.9 Hematuria, unspecified
CPT/HCPCS: 87077; 81003; 81015; 87086; 87186

== ENCOUNTER 2025-05-05 00:48 | Outpatient (RCR) | payer MEDICARE, MEDICAID, SELFPAY ==
[2025-04-29] MEDS: ERTAPENEM 1 GM in Normal Saline 50 ML IVPB (13:59)
[2025-04-29 14:04] VITALS: BP 127/84; PULSE 75; RESP 16; TEMP 36.7; O2SAT 100
[2025-04-30] MEDS: ERTAPENEM 1 GM in Normal Saline 50 ML IVPB (14:10)
[2025-05-01] MEDS: ERTAPENEM 1 GM in Normal Saline 50 ML IVPB (15:59)
[2025-05-01] MEDS: Normal Saline Flush 10 ML SYR IVP (15:59)
[2025-05-02] MEDS: ERTAPENEM 1 GM in Normal Saline 50 ML IVPB (14:35)
[2025-05-02] MEDS: Normal Saline Flush 10 ML SYR IVP (14:37)
[2025-05-03] MEDS: ERTAPENEM 1 GM in Normal Saline 50 ML IVPB (14:36)
[2025-05-03] MEDS: Normal Saline Flush 10 ML SYR IVP (14:42)
[2025-05-04] MEDS: ERTAPENEM 1 GM in Normal Saline 50 ML IVPB (14:32)
[2025-05-04] MEDS: Normal Saline Flush 10 ML SYR IVP (14:33)
[2025-05-05] MEDS: ERTAPENEM 1 GM in Normal Saline 50 ML IVPB (14:15)
[2025-05-05] MEDS: Normal Saline Flush 10 ML SYR IVP (14:30)
== END 2025-05-05 23:59 | disposition home or self-care (01) ==
LOC: INF 00:48
PROVIDERS: PCP Family Medicine; Visit Provider Nurse Practitioner Gerontology
DX: N39.0 Urinary tract infection, site not specified (principal); R31.0 Gross hematuria
CPT/HCPCS: 96365; J1335

== ENCOUNTER 2025-05-24 16:02 | Outpatient (CLI) | payer MEDICARE, MEDICAID, SELFPAY ==
[2025-05-25 23:14] LABS: PSA, Diagnostic 1.3 ng/mL (<=2.5)
== END 2025-05-24 16:03 | disposition home or self-care (01) ==
LOC: LBO 16:05 → LBN 18:26 → LBO 19:28
PROVIDERS: PCP Family Medicine; Visit Provider Urology
DX: N41.9 Inflammatory disease of prostate, unspecified (principal)
CPT/HCPCS: 36415; 81003; 81015; 84153; 87086

== ENCOUNTER 2025-05-24 19:09 | Outpatient (REF) | payer MEDICARE, MEDICAID, SELFPAY ==
[2025-05-24 18:51] LABS: Glucose Negative (Negative)
[2025-05-24 18:52] LABS: WBC >50 HPF (0-5)
== END 2025-05-24 19:10 | disposition home or self-care (01) ==
LOC: LBN 19:09
PROVIDERS: PCP Family Medicine; Visit Provider Urology
DX: N41.0 Acute prostatitis (principal)
CPT/HCPCS: 87077; 81003; 81015; 87086; 87186